=== PATIENT | female | born 1940 | race Hispanic/Latino ===

== ENCOUNTER 2019-10-15 21:42 | Emergency (ER) | payer OTHER ==
--- OUTSIDE RECORDS SUMMARY | 2019-10-15 21:44 | XMS REPORT | Clinical Summary ---
:1940 Author Organization [facility] Address [address] [place] [address] Care Team Providers Name Role Phone Krista Culver MD Primary Care Provider Allergies Active Allergy Reactions Severity Noted Date Comments Adhesive Tape Rash Low 10/12/2014 Medications Medication Sig Dispensed Refills Start Date End Date Status FAMOTIDINE ORAL Take 40 mg by mouth 0 Active once . propranolol (INDERAL) Take 40 mg by mouth 0 Active 40 MG tablet 2 (two) times daily. BIFIDOBACTERIUM Take 4 mg by mouth 0 Active INFANTIS (ALIGN ORAL) daily. omega-3 acid ethyl Take 1 g by mouth 2 0 Active esters (LOVAZA) 1 (two) times daily. gram capsule traMADol (ULTRAM) 50 Take 50 mg by mouth 0 Active mg tablet every 6 (six) hours as needed. vitamin E 400 UNIT Take 400 Units by 0 Active capsule mouth daily. ferrous sulfate 325 Take 325 mg by mouth 0 Active (65 FE) MG tablet daily with breakfast. levothyroxine Take 1 tablet (50 30 tablet 0 05/13/2013 Active (SYNTHROID, mcg total) by mouth LEVOTHROID) 50 MCG daily. tablet spironolactone Take 50 mg by mouth 0 Active (ALDACTONE) 50 MG daily. tablet ezetimibe (ZETIA) 10 Take 10 mg by mouth 0 Active mg tablet daily. furosemide (LASIX) 20 Take 20 mg by mouth 0 Active MG tablet daily. insulin aspart Inject 60 Units 0 Active (NOVOLOG) 100 unit/mL subcutaneously 2 InPn (two) times daily before meals . pregabalin (LYRICA) Take 100 mg by mouth 0 Active 75 MG capsule 2 (two) times daily . lactulose (CHRONULAC) Take 20 g by mouth 2 0 016 Active 20 gram/30 mL (two) times daily solution Take 20mg by mouth 2 to 3 times daily as needed . cholecalciferol Take 1,000 Units by 0 Active (VITAMIN D3) 1,000 mouth daily. unit tablet Active Problems Problem Noted Date Awaiting liver transplant 07/31/2016 Angina at rest 06/19/2016 Pre-transplant evaluation for liver transplant 017 Last Assessment & Plan: Risks/benefits/alternatives of liver tra nsplantation discussed in-depth. All questions answered. From a surgical per spective, I am concerned about her functional status. She reports being seen by a y sical therapist, but as of now can not get around well. 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 That, combined with her age, prior surgeries, and obesity ma ke her a marginal candidate at best from my perspective. Continue multidisciplinary evaluation with the ultimate decision for listing in [facility]. Hepatocellular carcinoma 03/29/2016 Last Assessment & Plan: Continued locoregional therapy as indica dave. Anemia 01/12/2016 Hypothyroid 01/12/2016 Esophageal varices 01/12/2016 Hepatic encephalopathy 01/12/2016 Last Assessment & Plan: Continue lactulose as prescribed. 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 Rectal bleeding 09/23/2012 Family History Medical History Relation Name Comments Heart disease Brother Heart disease Father Heart failure Mother Relation Name Status Comments Brother Father Mother Social History Tobacco Use Types Packs/Day Years Used Date Never Smoker Smokeless Tobacco: Never Used Alcohol Use Drinks/Week oz/Week Comments No Sex Assigned at Date Recorded Not on file Job Start Date Occupation Industry Not on file Not on file Not on file Travel History Travel Start Travel End No recent travel history available. Last Filed Vital Signs Not on file Plan of Treatment Health Maintenance Due Date Last Done Comments DIABETIC EYE EXAM 1950 DIABETIC FOOT EXAM 1950 PNEUMOCOCCAL 65+ HIGH/HIGHEST RISK (1 of 2 - PCV13) 12/31/2007 MEDICARE ANNUAL WELLNESS (YEAR 2 or FIRST YEAR if no 04/23/2014 IPPE) HEMOGLOBIN A1C 11/27/2016 05/30/2016 INFLUENZA VACCINE (Season Ended) 2019 Implants Implanted Type Area Retouching Operator Device Shelf Model / Identifier Expiration Serial / Date Lot Device Clsr Angio-Seal Vip 6fr [id number] Cardiovascular N/A: [employer]ELY[employer] 01/19/2017 [id number] / Implanted: Qty: 1 on 06/19/2016 by Nerissa Paredes MD [facility] / [id number] [id number] Results Not on fileafter 10/14/2018 Insurance Payer Benefit Plan / Subscriber ID Type Phone Address Group [employer] - MEDICARE [employer] MEDICARE HMO xxxxxxxx [address] [place] [address] Advance Directives For more information, please contact:[address] [phone] Code Status Date Activated Date Inactivated Comments Full Code 08/14/2016 1:30 PM 08/14/2016 7:56 PM This code status was determined by: Patient Full Code 06/19/2016 6:28 AM 06/19/2016 2:36 PM This code status was determined by: Patient Full Code 04/09/2016 5:18 PM 04/10/2016 3:21 PM This code status was determined by: Patient Full Code 12/12/2015 5:27 AM 12/17/2015 7:21 PM This code status was determined by: Patient Code ONE 05/11/2013 2:12 PM 05/13/2013 12:47 PM All possib le means of support, including: cardi ac massage, mechanical ventilation, and defibrillation will be used to suppo rt life.
--- OUTSIDE RECORDS SUMMARY | 2019-10-15 21:52 | XMS REPORT | Continuity of Care Document ---
:1940 Author Organization [employer] Information [employer] Care Team Providers Name Role Phone [employer] Unavailable Un available Problems Problem Status Onset Classification Date Comments Sourc e Date Reported S72.032D - "DISPL Active [facility] MIDCERVICAL FX L 017 [place] FEMUR LEFT FEMORAL NECK Active [facility] FX 017 [facility] RECTAL BLEEDING Active [place] 013 GI BLEEDING Active [facility] 013 GI BLEED Active [facility] st 013 Hematochezia Active Problem 02/01/2017 Data [place] (finding) 013 migrated Medical from [facility], Centricity OPID on 09/18/14. [facility] Internal Active Problem 02/01/2017 Data [facility] hemorrhoids 013 migrated Medical without from [facility], complication Centricity OPID (disorder) on 09/18/14. [place] [facility] Residual Active Problem 02/01/2017 Data [facility] hemorrhoidal skin 013 migrated Me dical tags (disorder) from [facility] er, Centricity OPID on 09/18/14. [facility] Cirrhosis of Active Problem 02/01/2017 Data [place] liver (disorder) 013 migrated Med ical from [facility], Centricity OPID on 09/18/14. [facility] Esophageal Active Problem 02/01/2017 Data [facility] varices 013 migrated Medical (disorder) from [facility], Centricity OPID on 09/18/14. [facility] Portal Active Problem 02/01/2017 Data [facility] hypertension 013 migrated Medical (disorder) from [facility], Centricity OPID on 09/18/14. [facility] Anemia (disorder) Resolved Problem 02/01/2017 M Beronica [facility], OPID [place],[place] [facility] [place] Cirrhosis - Resolved Problem [place]/01[place] non-al[place] [facility] (disorder) Center, OPID [facility] [facility] [place] DM II [Diabetes Resolved Problem 02/01/2017 [facility] mellitus type Medica l II](Confirmed) Tommy r, OPID [facility] Hemorrhoids Resolved Problem 02/01[place] [facility] [facility], [facility]ID [facility],M Beronica [facility] Essential Resolved Problem 02/01/2017 [facility] hypertension Medical (disorder) Center, OPID [facility] 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[facility] neoplasm of liver Me dical (disorder) Center, OPID [facility] Metatarsal bone Active Problem 02/01/2017 [facility] fracture Medical (disorder) Center, OPID [facility] Diverticulum Resolved Problem 02/17/2013 [place] (morphologic abnormality) DM II [Diabetes Resolved Problem 02/17/2013 [place] mellitus type II] HTN Resolved Problem 02/17/2013 [place] [facility] 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 Diverticulosis Resolved Problem 01/31/2013 [place] GASTROINTEST Active [place] HEMORR NOS FRACTURE OF UNSP Active [facility] PART OF NECK OF [facility] LEFT FE Center Medications Medication Details Route Status Patient Ordering Order Source Instructions Provider Date tramadol 50 mg = 1 Active 01/11/ [place] hydrochloride 50 tab, PO, Q6H, 2016 edical MG Oral Tablet PRN Pain Center Score 6-10, X 5 day, # 20 tab, 0 Refill(s) enoxaparin 30 30 mg = 0.3 Active 01/11/ [place] mg/0.3 mL mL, SUB-Q, 2017 Medical subcutaneous [id number], Center solution Stop date is 01/26/17, 0 Refill(s) Ergocalciferol 50,000 Active 01/11/ [place] 57744 UNT Oral IntlUnit = 1 2016 [facility] stephenie Capsule cap, PO, Q7D, Center 0 Refill(s) Lactulose 667 20 gm = 30 Active 01[place]11/ [place] MG/ML Oral mL, PO, TID, 2017 Medical Solution PRN Other Center -See Comment, 0 Refill(s) Monobasic Notes: (Same No Longer [place] potassium as: Phos-NaK) Active 2017 Medical phosphate 155 MG Each 1.5 gm Ce nter / Sodium pkt has 250mg Phosphate, phosphorous. Monobasic 350 MG Mix w/2.5oz Oral Tablet water and stir. Lactulose 667 Notes: (Same Inactive [facility] [place] MG/ML Oral as:Chronulac) 2017 [facility] potassium Notes: (Same Inactive [facility] phosphate-sodium as: Phos-NaK) 2017 edical phosphate 155 Each 1.5 gm Cente r mg-350 mg oral pkt has 250mg tablet phosphorous. Mix w/2.5oz water and stir. Monobasic Notes: (Same Inactive [facility] potassium as: Phos-NaK) 2017 Medical phosphate 155 MG Each 1.5 gm Ce nter / Sodium pkt has 250mg Phosphate, phosphorous. Monobasic 350 MG Mix w/2.5oz Oral Tablet water and stir. Lovenox Notes: (Same No Longer [facility] as: Lovenox) Active 2017 Medical [place] Magnesium Notes: WASTE: Inactive [facility] Sulfate F/P - Sink; E 2017 Medical [facility] Trash Bin influenza virus Notes: (Same Inactive [facility] vaccine, as: Fluzone 2017 Medical inactivated Quadrivalent, [place] Fluarix Quadrivalent) For 3 years of age and older (0.5 mL IM) Shake well before use cyclobenzaprine Notes: (Same No Longer [facility] As: Flexeril) Active 2017 Medical [place] Ergocalciferol Notes: (Same No Longer [place] [address] UNT Oral as: Vitamin Active 2017 Medic al Capsule D) "Do Not Center Crush" Calcium Notes: No Longer [facility] Carbonate 1250 (calcium Active 2017 Medical MG / carbonate-vit Center Cholecalciferol D 400 UNT Chewable 500mg-400unit Tablet TAB) Same as: Oyster-D, OsCal-D Baclofen Notes: 5 mg No Longer [facility] =1/2 of 10 mg Active 2017 Medical Tab (Same As: [place] Lioresal) Cefazolin Notes: (Same No Longer [place] As: Ancef, Active 2017 Medical Kefzol) Center Cefazolin FOR IV SET ONLY MEDICATION WASTE Product Size: 1000 mg Product Wasted: ___ mg ondansetron Route: IV, Inactive [place] (ANES) Drug form: 2016 Medical INJ, ONCE, Center Stop date: 01/05/17 10:33:00 CDT glycopyrrolate Route: IV, Inactive [place] (ANES) Drug form: 2017 Medical INJ, ONCE, Center Stop date: 01/05/17 10:33:00 CDT neostigmine Route: IV, Inactive [facility] (ANES) Drug form: 2017 Medical INJ, ONCE, Center Stop date: 01/05/17 10:33:00 CDT calcium chloride Route: IV, Inactive [facility] (ANES) Drug form: 2016 Medical INJ, ONCE, Center Stop date: 01/05/17 10:33:00 CDT dexamethasone Route: IV, Inactive [place] (ANES) Drug form: 2017 Medical INJ, ONCE, Center Stop date: 01/05/17 10:02:00 CDT esmolol (ANES) Route: IV, Inactive [place] Drug form: 2017 Medical INJ, ONCE, Center Stop date: 01/05/17 9:07:00 CDT famotidine Route: IV, Inactive [facility] (ANES) Drug form: 2017 Medical INJ, ONCE, Center Stop date: 01/05/17 9:07:00 CDT ferrous sulfate Notes: Give No Longer [place] 325 MG Oral with food. Active 2017 Medical Tablet [Feosol] "Do Not Center Crush" Furosemide 20 MG Notes: (Same No Longer [facility] Oral Tablet as: Lasix) Active 2017 Medical [Lasix] May cause GI Center upset. Give with food or milk. Zetia Notes: (Same No Longer [facility] as: Zetia) Active 2017 Medical Center Cholecalciferol Notes: Same No Longer [facility] as : Vitamin Active 2017 Medical D3 Center Streptococcus Notes: Shake Inactive [place] pneumoniae well prior to 2017 Medical serotype 1 use (Same Center capsular antigen as: Prevnar diphtheria 13) [id number] protein conjugate vaccine / Streptococcus pneumoniae serotype 14 capsular antigen diphtheria [id number] protein conjugate vaccine / Streptococcus pneumoniae serotype 18C capsular antigen d Spironolactone Notes: (Same No Longer [place] As: Active 2017 Medical Aldactone) Center senna 8.6 mg Notes: (Same No Longer [place] oral tablet as: Senokot) Active 2017 [facility] Protonix Notes: Tablet No Longer [place] should not be Active 2017 [facility] chewed or Center crushed. (Same as: Protonix) phenylephrine Route: IV, Inactive [place] (ANES) Drug form: 2016 Medical INJ, ONCE, Center Stop date: 01/05/17 8:52:00 CDT lidocaine (ANES) Route: IV, Inactive [facility] Drug form: 2016 Medical INJ, ONCE, Center Stop date: 01/05/17 8:47:00 CDT propofol (ANES) Route: IV, Inactive [place] Drug form: 2016 Medical INJ, ONCE, Center Stop date: 01/05/17 8:47:00 CDT rocuronium Route: IV, Inactive [place] (ANES) Drug form: 2017 Medical INJ, ONCE, Center Stop date: 01/05/17 8:47:00 CDT ondansetron Route: IV, Inactive [facility] (ANES) Drug form: 2016 Medical INJ, ONCE, Center Stop date: 01/05/17 8:47:00 CDT ceFAZolin (ANES) Route: IV, Inactive [facility] Drug form: 2017 Medical INJ, ONCE, Center Stop date: 01/05/17 8:47:00 CDT fentaNYL (ANES) Route: IV, Inactive [place] Drug form: 2017 Medical INJ, ONCE, Center Stop date: 01/05/17 8:47:00 CDT Insulin regular 2 unit, In[place] Route: SUB-Q, 2017 Medical Sliding Center Scale, Dosing Weight 81.818, kg, PRN Blood Glucose Results, Start date: 01/05/17 8:40:00 CDT, Duration: 30 day, Stop date: 02/04/17 8:39:00 CDT Ondansetron 4 mg, Route: Inactive [place] IVP, ONCE, 2016 Medical Dosing Weight Center 81.818, kg, PRN Nausea & Vomiting, Start date: 01/05/17 8:40:00 CDT Hydromorphone 0.5 mg, Inactive [place] Route: IVP, 2016 Medical Q5Min, Dosing Center Weight 81.818, kg, PRN Pain Score 7-10, Start date: 01/05/17 8:40:00 CDT, Duration: 4 doses or times, Stop date: Limited # of times Naloxone 0.4 mg, Inactive [place] Route: IVP, 2016 Medical Q2MIN, Dosing Center Weight 81.818, kg, PRN Narcotic Reversal, Start date: 01/05/17 8:40:00 CDT, Duration: 8 doses or times, Stop date: Limited # of times Sodium Chloride 1,000 mL, Inactive [place] 0.9% IV 1,000 mL Rate: 50 2017 Medica l ml/hr, Infuse Center over: 20 hr, Route: IV, Dosing Weight 81.818 kg, Total Volume: 1,000, Start date: 01/05/17 8:40:00 CDT, Duration: 30 day, Stop date: 02/04/17 8:39:00 CDT Labetalol 10 mg, Route: Inactive [place] IVP, Q5Min, 2016 Medical Dosing Weight Center 81.818, kg, PRN Elevated BP, Start date: 01/05/17 8:40:00 CDT, Duration: 5 doses or times, Stop date: Limited # of times Hydralazine 10 mg, Route: Inactive [place] IVP, Q20Min, 2016 Medical Dosing Weight Center 81.818, kg, PRN Elevated BP, Start date: 01/05/17 8:40:00 CDT, Duration: 2 doses or times, Stop date: Limited # of times sodium chloride Route: IV, Inactive [place] 0.9% 1000 ml INJ Total Volume: 2016 edical (ANES) 1,000, Start Center date: 01/05/17 7:45:00 CDT, Stop date: 01/05/17 8:45:00 CDT Thyroxine Notes: Take 1 No Longer [place] hour before Active 2017 Medical or 2 hours Center after meal; Enteral feeds may interefere with the absorption of this medication.(S rosey as:Levothroid , Synthroid) Lovenox Notes: (Same No Longer [place] as: Lovenox) Active 2017 Medical Center Humalog Mix Notes: (Same No Longer [place] 75/25 as: Humalog Active 2016 Medical Mix) WASTE: Center F/P - Black; E - Municipal Trash Bin Docusate Notes: (Same No Longer [place] as: Colace) Active 2017 Medical (Do Not Center Crush) Propranolol Notes: Give No Longer [place] with food. Active 2017 Medical (Same as: Center Inderal) Miralax Notes: No Longer [place] Dissolve in 8 Active 2016 Medical oz of water Center or juice. (Same as: Miralax) Jbphh-3 Acid Notes: (Same No Longer [place] Ethyl Esters as: MaxEPA, Active 2016 Medical (LONGTERM) 1000 MG Jbphh 3 fish Cente r Oral Capsule oil ) [Lovaza] Non-Formulary Drug NovoLOG 70/30 55 unit, Inactive [place] Route: SUB-Q, 2017 Medical BID-Before Center Meals, Dosing Weight 81.818, kg, Start date: 01/04/17 16:30:00 CDT, Duration: 30 day, Stop date: 02/03/17 7:30:00 CDT Humalog Mix Notes: (Same Inactive [place] 75/25 as: Humalog 2017 Medical 75/25) Center WASTE: F/P - Black; E - [place] Trash Bin Lyrica Notes: (Same No Longer [place] as: Lyrica) Active 2017 Medical Center Insulin Lispro 60 units) No Longer [place] WASTE: F/P - Active 2016 Medical Black; E - Center Municipal Trash Bin Stable for 28 days at room temperature. Expires in days from _Date Dextrose 50% 25 gm, 50 mL, No Longer [place] Syringe Route: IVP, Active 2016 Medical Drug Form: Center INJ, Dosing Weight 81.818, kg, PRN, PRN Blood Glucose Results, Start date: 01/04/17 11:51:00 CDT, Duration: 30 day, Stop date: 02/03/17 11:50:00 CDT Glucagon 1 mg, Route: No Longer [place] IM, Drug Active 2016 Medical form: Center PDR/INJ, PRN, Dosing Weight 81.818, kg, PRN Blood Glucose Results, Start date: 01/04/17 11:51:00 CDT, Duration: 30 day, Stop date: 02/03/17 11:50:00 CDT Oxycodone Notes: (Same No Longer [place] Hydrochloride 5 as: Active 2016 Medical MG Oral Tablet Roxicodone) Cente r Lactulose 667 Notes: (Same No Longer [place] MG/ML Oral as:Chronulac) Active 2016 Medical Solution [place] Furosemide 20 MG 20 mg = 1 Active [place] Oral Tablet tab, PO, 2017 Medical [Lasix] Daily, # 30 Center tab, 0 Refill(s) Linagliptin 5 MG 5 mg = 1 tab, Active 01/04/ H [place] Oral Tablet PO, Daily, # 2016 Medical [Tradjenta] 30 tab, 3 Center Refill(s) lactulose 20 g = 1 Pack, PO, No Longer 01/04/ H [place] oral powder BID, # 20 gm, Active 2016 Medica l 0 Refill(s) Center Lovaza 1,000 mg =, No Longer [place] PO, BID, 0 Active 2016 Medical Refill(s) [place] NovoLOG 70/30 55 unit, Active [place] SUB-Q, 2017 Medical BID-Before Center Meals, 0 Refill(s) spironolactone 25 mg = 1 Active [place] 25 mg oral tab, PO, 2017 Medical tablet Daily, # 30 Center tab, 3 Refill(s) Cholecalciferol 1,000 No Longer [place] IntlUnit, PO, Active 2016 Medical Daily, 0 Center Refill(s) pantoprazole 40 40 mg = 1 Active [place] MG Enteric tab, PO, 2017 Medical Coated Tablet Daily, # 30 Center [Protonix] tab, 0 Refill(s) Saline Flush Notes: Same No Longer [place] 0.9% as: BD Active 2016 Medical Posiflush Center Sterile sodium chloride 1,000 mL, No Longer [place] 0.9% 1000 ml INJ Rate: 75 Active 2017 Medica l 1,000 mL ml/hr, Infuse Center over: 13.3 hr, Route: IV, Dosing Weight 81.818 kg, Total Volume: 1,000, Start date: 01/04/17 11:39:00 CDT, Duration: 30 day, Stop date: 02/03/17 11:38:00 CDT Morphine Notes: (Same No Longer [place] as:MORPhine Active 2016 Medical Sulfate) Center Ondansetron Notes: (Same No Longer [place] as: Zofran) Active 2016 Medical Center MEDICATION WASTE Product Size: 4 mg Product Wasted: ___ mg Ondansetron Notes: (Same Inactive [place] as: Zofran) 2017 Medical Center MEDICATION WASTE Product Size: 4 mg Product Wasted: ___ mg Morphine Notes: (Same Inactive [place] as:MORPhine 2016 Medical Sulfate) [place] Lasix 20 mg oral 20 mg, 1 tab, Active [place] tablet PO, Daily, 30 2012 tab, Substitution Allowed, TAB pantoprazole 40 40 mg, 1 tab, Active [place] mg oral enteric PO, Q12H, 60 2012 [place] [facility] coated tablet tab, Substitution Allowed, ECTAB benzonatate 100 100 mg, 1 Active [place] mg oral capsule cap, PO, TID, 2012 [place] PRN, 30 cap, Cough, Substitution Allowed, CAP Lasix 40 mg oral 40 mg, 1 tab, Inactive [place] tablet Route: PO, 2012 [facility] Drug form: TAB, Daily, Dosing Weight 84.3, kg, Start date: 02/10/13 9:00:00, Duration: 30 day, Stop date: 03/11/13 9:00:00(Same as: Lasix) May cause GI upset. Give with food or milk. Tessalon Perles 100 mg, 1 No Longer [place] 02/10/ MH cap, Route: Active 2012 [facility] PO, Drug form: CAP, TID, Dosing Weight 84.3, kg, PRN Cough, Start date: 02/09/13 23:03:00, Duration: 30 day, Stop date: 03/11/13 23:02:00(Same As: Tessalon Perles) "Do Not Crush" spironolactone 50 mg, 2 tab, No Longer [place] MH Route: PO, Active 2012 [facility] Drug form: TAB, BID, Dosing Weight 84.3, kg, Start date: 02/09/13 17:00:00, Duration: 30 day, Stop date: 03/11/13 9:00:00(Same As: Aldactone) Protonix 40 mg, 1 tab, No Longer [place] MH Route: PO, Active 2012 [facility] Drug form: ECTAB, Q12H, Dosing Weight 84.3, kg, Start date: 02/08/13 21:00:00, Stop date: 03/10/13 9:00:00Tablet should not be chewed or crushed. (Same as: Protonix) Anusol-HC 2.5% 1 appl, No Longer Voloyiannis 02/08/ MH rectal cream Route: VA, Active 2012 [place] with applicator BID, Drug form: CRM, Start date: 02/08/13 17:00:00, Duration: 30 day, Stop date: 03/10/13 9:00:00 HC Pramoxine 1 appl, TOP, Active Voloyiannis 02/08/ MH 2.5%-1% topical TID, 28 gm, 2012 [place] cream Substitution Allowed, Maintenance, CRM nitroglycerin 0.4 mg, 1 No Longer [place] 02/08/ MH 0.4 mg tab, Route: Active 2012 [facility] sublingual SL, Drug tablet form: TAB, Q5Min, PRN Chest Pain, Start date: 02/08/13 9:05:00, Duration: 30 day, Stop date: 03/10/13 8:04:00(Same as:Nitroquick , Nitrostat) "Do Not Crush" Sublingual tablet atropine 0.5 mg, 5 mL, No Longer [place] Route: IVP, Active 2012 [facility] Drug form: INJ, PRN, PRN Bradycardia, Start date: 02/08/13 9:05:00, Duration: 30 day, Stop date: 03/10/13 8:04:00 Sodium Chloride 1,000 mL, No Longer Maxian 0.9% IV 1,000 mL Rate: 25 Active 2012 [facility] ast ml/hr, Infuse over: 40 hr, Route: IV, Dosing Weight 84.3 kg, Total Volume: 1,000, Start date: 02/06/13 14:38:00, Duration: 1 day, Stop date: 02/07/13 14:37:00 Lidocaine 15 ml, Route: No Longer [place] Viscous 2% PO, Q3H, Drug Active 2012 [facility] mucous membrane form: SOLN, solution PRN Other -See Comment, Start date: 02/06/13 11:31:00, Duration: 30 day, Stop date: 03/08/13 11:30:00, post banding chest pain(Same as: Xylocaine Viscous) levothyroxine 50 microgram, No Longer [place] 1 tab, Route: Active 2012 [facility] PO, Drug form: TAB, Q6AM, Dosing Weight 84.3, kg, Start date: 02/06/13 6:00:00, Duration: 30 day, Stop date: 03/07/13 6:00:00Take 1 hour before or 2 hours after meal; Enteral feeds may interefere with the absorption of this medication.(S rosey as:Levothroid , Synthroid) Sodium Chloride 250 mL, Rate: Inactive [place] 0.9% IV 250 mL 30 ml/hr, 2012 [facility] Infuse over: 8.3 hr, Route: IV, Dosing Weight 84.3 kg, Total Volume: 250, Start date: 02/05/13 10:43:00, Duration: 12 hr, Stop date: 02/05/13 22:42:00 Evista 60 mg, PO, Active Daily, 2012 Substitution Allowed Evista 60 mg, 1 tab, No Longer [place] Route: PO, 2012 [facility] Drug form: TAB, Daily, Dosing Weight 84.3, kg, Start date: 02/05/13 9:00:00, Duration: 30 day, Stop date: 03/06/13 9:00:00(Same as:Evista) "Do Not Crush" propranolol 40 mg, 1 tab, No Longer [place] Route: PO, 2012 Drug form: TAB, BID, Dosing Weight 84.3, kg, Start date: 02/05/13 9:00:00, Duration: 30 day, Stop date: 03/06/13 21:00:00Give with food. (Same as: Inderal) Lyrica 75 mg, 1 cap, No Longer [place] Route: PO, 2012 [facility] Drug form: CAP, Q8H, Dosing Weight 84.3, kg, Start date: 02/05/13 9:00:00, Duration: 30 day, Stop date: 03/07/13 8:00:00(Same as: Lyrica) Zetia 10 mg, 1 tab, No Longer [place] Route: PO, 2012 [facility] Drug form: TAB, Daily, Dosing Weight 84.3, kg, Start date: 02/05/13 9:00:00, Duration: 30 day, Stop date: 03/06/13 9:00:00(Same as: Zetia) Saline Flush 5 ml, Route: No Longer [place] 0.9% IVP, Drug Active 2012 [facility] Form: INJ, Dosing Weight 79.545, kg, PRN, PRN Line Flush, Start date: 02/05/13 0:57:00, Duration: 30 day, Stop date: 03/06/13 23:56:00(Same as: BD Posiflush) Sodium Chloride 1,000 mL, No Longer [place] 0.9% IV 1,000 mL Rate: 125 2012 [facility] ml/hr, Infuse over: 8 hr, Route: IV, Dosing Weight 79.545 kg, Total Volume: 1,000, Start date: 02/05/13 0:57:00, Duration: 30 day, Stop date: 03/07/13 0:56:00 octreotide 50 microgram, Inactive [place] Route: IVP, 2012 [facility] ONCE, Dosing Weight 79.545, kg, Start date: 02/05/13 0:57:00, Duration: 1 doses or times, Stop date: 02/05/13 0:57:00 pantoprazole 80 mg, Route: Inactive [place] IVP, ONCE, 2012 [facility] Dosing Weight 79.545, kg, for loading dose, Start date: 02/05/13 0:57:00, Duration: 1 doses or times, Stop date: 02/05/13 0:57:00 pantoprazole 80 100 mL, Rate: No Longer [place] mg + Sodium 10 ml/hr, Active 2012 [facility] Chloride 0.9% IV Infuse over: 100 mL 10 hr, Route: IV, Dosing Weight 79.545 kg, Total Volume: 100, Start date: 02/05/13 0:57:00, Duration: 30 day, Stop date: 03/07/13 0:56:00 octreotide 1,250 248.75 mL, No Longer [place] microgram + Rate: 10 Active 2012 [facility] Sodium Chloride ml/hr, Infuse 0.9% IV 248.75 over: 25 hr, mL Route: IV, Dosing Weight 79.545 kg, Total Volume: 250, Start date: 02/05/13 0:57:00, Duration: 30 day, Stop date: 03/07/13 0:56:00, Infuse at 50 mcg/hr. Final concentration = 50 mcg/10 mLInfuse at 50 mcg/hr. Final concentration = 50 mcg/10 mL insulin aspart 10 unit, 0.1 No Longer [place] mL, Route: Active 2012 [facility] SUB-Q, Drug form: SOLN, Sliding Scale, Dosing Weight 79.545, kg, PRN Blood Glucose Results, Start date: 02/05/13 0:57:00, Duration: 30 day, Stop date: 03/06/13 23:56:00Roll in palms of hands gently; Do not shake vigorously. (Same as: NovoLog) "single patient use only" Stable for 28 days at room temperature. Expires in days from _Date Dextrose 50% 12.5 gm, 25 No Longer [place] Syringe mL, Route: Active 2012 [facility] IVP, Drug Form: INJ, Dosing Weight 79.545, kg, PRN, PRN Blood Glucose Results, Start date: 02/05/13 0:57:00, Duration: 30 day, Stop date: 03/06/13 23:56:00 glucagon 1 mg, Route: No Longer [place] IM, Drug Active 2012 [facility] form: PDR/INJ, PRN, Dosing Weight 79.545, kg, PRN Blood Glucose Results, Start date: 02/05/13 0:57:00, Duration: 30 day, Stop date: 03/06/13 23:56:00 Protonix 80 mg, Route: Inactive Lilianen IVP, Drug 2012 [facility] form: INJ, ONCE, Start date: 02/04/13 23:43:00, Stop date: 02/04/13 23:43:00For IV push reconstitute with 10 ml 0.9% sodium chloride and push over 2 minutes. (Same as: Protonix) pantoprazole 80 100 mL, Rate: No Longer [place] mg + Sodium 10 ml/hr, Active 2012 [facility] Chloride 0.9% IV Infuse over: 100 mL 10 hr, Route: IVPB, Dosing Weight 79.545 kg, Total Volume: 100, Infuse at 8 mg / hr for 72 hours for GI bleeding, Start date: 02/04/13 23:35:00, Duration: 72 hr, Stop date: 02/07/13 23:34:00 Sodium Chloride 20 mL, Rate: Inactive [place] 0.9% (Bolus) IV 240 ml/hr, 2012 [facility] 20 mL + Infuse over: pantoprazole 80 5 minutes, mg Route: IVP, Dosing Weight 79.545 kg, Total Volume: 20, Start date: 02/04/13 23:35:00, Duration: 1 doses or times, Stop date: 02/04/13 23:39:00 octreotide 1,250 248.75 mL, No Longer Humberto microgram + Rate: 10 Active 2012 [facility] Sodium Chloride ml/hr, Infuse 0.9% IV 248.75 over: 25 hr, mL Route: IV, Dosing Weight 79.545 kg, Total Volume: 250, Start date: 02/04/13 23:34:00, Duration: 30 day, Stop date: 03/06/13 23:33:00 Octreotide 50 microgram, Inactive [place]umberto (bolus) 0.5 mL, 2012 [facility] Route: IVP, Drug form: INJ, ONCE, Dosing Weight 79.545, kg, Start date: 02/04/13 23:34:00, Duration: 1 doses or times, Stop date: 02/04/13 23:34:00(Same As: Sandostatin). Refrigerate. Centrum Silver 1 tab, PO, Active oral tablet Daily, 2012 tab, Substitution Allowed, Maintenance, TAB Align 4 mg, Daily, Active Substitution 2012 Allowed pantoprazole 40 mg, Route: Inactive [place]umberto IVP, ONCE, 2012 [facility] Dosing Weight 79.545, kg, For IV push reconstitute with 10 ml 0.9% sodium chloride and push over at least 3 minutes, Priority: STAT, Start date: 02/04/13 19:51:00, Stop date: 02/04/13 19:51:00 Saline Flush 5 mL, Route: No Longer [place] 0.9% IVP, Drug Active 2012 [facility] Form: INJ, Dosing Weight 79.545, kg, PRN, PRN Line Flush, Start date: 02/04/13 19:51:00, Duration: 24 hr, Stop date: 02/05/13 19:50:00(Same as: BD Posiflush) sitagliptin 50 mg, 2 tab, Inactive Rahim Route: PO, 2012 [facility] Drug form: TAB, BID, Dosing Weight 84.091, kg, Start date: 01/27/13 9:00:00, Duration: 30 day, Stop date: 02/25/13 17:00:00Same as Chinia metFORmin 1000 1,000 mg, 2 Inactive Rahim mg oral tablet tab, Route: 2012 [facility] PO, Drug form: TAB, BID, Dosing Weight 84.091, kg, Start date: 01/27/13 9:00:00, Duration: 30 day, Stop date: 02/25/13 17:00:00(Same as: Glucophage) Take with meal hydrocortisone-p 1 appl, No Longer Voloyiannis H ramoxine topical Route: PO, Active 2012 [facility] 2.5%-1% cream BID, Drug form: CRM/A, Start date: 01/26/13 18:00:00, Duration: 30 day, Stop date: 02/25/13 17:00:00(Same as: Analpram-HC 2.5) Non-formulary drug. (hydrocortiso ne-pramoxine 2.5%-1% 30 gm rectal CRM) Analpram Route: TOP, Inactive Tran Advanced with Dosing Weight 2012 [facility] cleansing wipes 84.091, kg, oral and topical BID, Start kit date: 01/26/13 17:00:00 Sodium Chloride 1,000 mL, No Longer Curt 0.9% IV 1,000 mL Rate: 25 Active 2012 [facility] ast ml/hr, Infuse over: 40 hr, Route: IV, Dosing Weight 84.091 kg, Total Volume: 1,000, Start date: 01/26/13 9:40:00, Duration: 1 day, Stop date: 01/27/13 9:39:00 GoLYTELY 4,000 ml, Inactive Jasmeet Route: PO, 2012 [facility] Drug Form: PDR/REC, Dosing Weight 84.091, kg, ONCE, Start date: 01/25/13 15:00:00, Duration: 1 doses or times, Stop date: 01/25/13 15:00:00(poly ethylene glycol electrolyte solution 4 Liter bottle) (Same as: Golytely, Colyte) NS IV, 30 ml/hr, No Longer Jasmeet PRN, PRN Active 2012 [facility] Blood Transfusion, Start date: 01/25/13 11:50:00, Duration: 1, 250 ml Vitamin K1 10 mg, 1 mL, Inactive Jasmeet Route: SUB-Q, 2012 [facility] Drug form: INJ, ONCE, Dosing Weight 84.091, kg, Start date: 01/25/13 10:31:00, Duration: 1 doses or times, Stop date: 01/25/13 10:31:00(Same as: Aqua-Mephyton , Vitamin K) Zetia 10 mg, 1 tab, No Longer Onochie Route: PO, Active 2012 [facility] Drug form: TAB, Daily, Dosing Weight 79.545, kg, Start date: 01/24/13 9:00:00, Duration: 30 day, Stop date: 02/22/13 9:00:00(Same as: Zetia) Evista 60 mg, 1 tab, No Longer Onochie Route: PO, Active 2012 [facility] Drug form: TAB, Daily, Dosing Weight 79.545, kg, Start date: 01/24/13 9:00:00, Duration: 30 day, Stop date: 02/22/13 9:00:00(Same as:Evista) "Do Not Crush" propranolol 40 mg, 1 tab, No Longer Onochie Route: PO, Active 2012 [facility] Drug form: TAB, BID, Dosing Weight 79.545, kg, Start date: 01/24/13 9:00:00, Duration: 30 day, Stop date: 02/22/13 17:00:00Give with food. (Same as: Inderal) influenza virus 0.5 mL, Inactive SYSTEM vaccine, Route: IM, 2012 [facility] inactivated Drug Form: SUSP, Start date: 01/24/13 9:00:00, Stop date: 01/24/13 9:00:00 Protonix 40 mg, Route: No Longer Rahim IV, Drug Active 2012 [facility] form: INJ, Q12H, Dosing Weight 79.545, kg, Start date: 01/24/13 9:00:00, Duration: 30 day, Stop date: 02/22/13 21:00:00For IV push reconstitute with 10 ml 0.9% sodium chloride and push over 2 minutes. (Same as: Protonix) magnesium 2 gm, 50 mL, Inactive Onochie MH sulfate 2 gm in Route: IV, 2012 [facility] Water 50 ml Drug form: INJ, ONCE, Dosing Weight 84.091, kg, Priority: Routine, Start date: 01/24/13 6:37:00, Stop date: 01/24/13 6:37:00 nitroglycerin 0.4 mg, 1 No Longer Rahim 01/24/ MH 0.4 mg tab, Route: Active 2012 [facility] sublingual SL, Drug tablet form: TAB, Q5Min, PRN Chest Pain, Start date: 01/24/13 2:14:00, Duration: 30 day, Stop date: 02/23/13 1:13:00(Same as:Nitroquick , Nitrostat) "Do Not Crush" Sublingual tablet atropine 0.5 mg, 5 mL, No Longer Rahim 01/24/ MH Route: IVP, Active 2012 Drug form: INJ, PRN, PRN Bradycardia, Start date: 01/24/13 2:14:00, Duration: 30 day, Stop date: 02/23/13 1:13:00 acetaminophen 650 mg, 20.3 No Longer Rahim 01/24/ MH mL, Route: Active 2012 PO, Drug form: LIQ, Q4H, Dosing Weight 84.091, kg, PRN Pain 1-3/Temp > 100.4 F, Start date: 01/24/13 1:09:00, Duration: 30 day, Stop date: 02/23/13 1:08:00Max acetaminophen = 4000mg/day (4 gm/day). (Same as: Tylenol) ondansetron 4 mg, 2 mL, No Longer Rahim 01/24/ MH Route: IVP, Active 2012 Drug form: INJ, Q8H, Dosing Weight 84.091, kg, PRN Nausea & Vomiting, Start date: 01/24/13 1:09:00, Duration: 30 day, Stop date: 02/23/13 1:08:00(Same as: Zofran) Zetia 10 mg oral 10 mg, 1 tab, Active Onochie 10/ M H tablet PO, Daily, 2012 tab, Substitution Allowed, TAB Voltaren Topical 1 appl, TOP, Active MH 1% topical gel QID, 100 gm, 2012 [facility] Substitution Allowed, GEL propranolol 40 40 mg, 1 tab, Active Onochie 01/24/ MH mg oral tablet PO, BID, 180 2012 [facility] tab, Substitution Allowed, TAB Metamucil Substitution Active 01/24/ MH Allowed, 2012 Maintenance Lyrica 75 mg 75 mg, 1 cap, Active MH oral capsule PO, TID, [address] [facility] [address] cap, Substitution Allowed, CAP Lovaza oral 2,000 mg, 2 Active MH capsule cap, PO, BID, 2012 120 cap, Substitution Allowed, Maintenance, CAP Lidoderm 5% Substitution Active topical film Allowed 2012 (patch) levothyroxine 50 50 microgram, Active 01/24/ H mcg (0.05 mg) 1 tab, PO, [address] [facility] [address] oral tablet Daily, 30 tab, Substitution Allowed, TAB Janumet 50 1 tab, PO, Active MH mg/1000 mg oral BID, 60 tab, 2012 [facility] tablet Substitution Allowed, Maintenance, TAB Feosol 325 mg 325 mg, PO, Active MH oral tablet Daily, 30 2012 tab, Substitution Allowed famotidine 40 mg, PO, Active MH BID, 60 tab, 2012 Substitution Allowed Evista 60 mg 120 mg, 2 Active Onochie 01/24/ MH oral tablet tab, PO, 2012 Daily, 30 tab, Substitution Allowed, TAB Dexilant 60 mg 60 mg, 1 cap, Active MH oral delayed PO, 2012 [facility] release capsule Substitution Allowed, CAP Sodium Chloride 250 mL, Rate: No Longer Grijalva 10/05/ MH 0.9% (titrate) Benefits Officer for Active 2012 [facility] 250 mL use with blood product administratio n., Dosing Weight 79.545, kg, Route: IV, Total Volume: 250, Priority: Routine, Duration: 30 day, Stop date: 02/22/13 22:44:00, Replace Every: 24 hr Sodium Chloride 250 mL, Rate: No Longer Grijalva 10/05/ MH 0.9% (titrate) train caller for Active 2012 [facility] 250 mL use with blood product administratio n, Dosing Weight 79.545, kg, Route: IV, Total Volume: 250, Duration: 30 day, Stop date: 02/22/13 20:51:00, Replace Every: 24 hr Allergies, Adverse Reactions, Alerts No Known Medication Allergies Immunizations Immunization Date Site Status Last Updated Comments Sour ce Given influenza virus Right completed John DANIEL [facility] [place] vaccine, 7 Deltoid [facility] inactivated Center,[facility] pneumococcal Left completed Juan C Giles s 13-valent 7 [facility] Right completed Seferino DANIEL T [place] vaccine, 3 Deltoid [facility] inactivated Center,M H [facility] influenza virus completed Seferino DANIEL [facility] [place] vaccine, 3 inactivated Results Order Name Results Value Reference Date Interpretation Comments Leslie rce Range CHEM PANEL eGFR 92 01/11 Result Comment: The Medical eGFR is Center calculated using the CKD-EPI formula. In most young, healthy individuals the eGFR will be >90 mL/min/1.73m2 . The eGFR declines with age. An eGFR of 60-89 may be normal in some populations, particularly the elderly, for whom the CKD-EPI formula has not been extensively validated. Use of the eGFR is not recommended in the following populations:< br/>
Julia viduals with unstable creatinine concentration s, including patients and those with serious co-morbid conditions.<b r/>
Patie nts with extremes in muscle mass or diet.

The data above are obtained from the National Kidney Disease Education Program (NKDEP) which additionally recommends that when the eGFR is used in patients with extremes of body mass index for purposes of drug dosing, the eGFR should be multiplied by the estimated BMI. CHEM PANEL Potassium 3.3 3.5 - 5.1 01/11 [facility] CHEM PANEL Chloride Lvl 103 95 - 109 01/11 [facility] CHEM PANEL Sodium Lvl 142 135 - 145 01/11 [facility] CHEM PANEL Calcium Lvl 8.3 8.5 - 10.5 01/11 [facility] CHEM PANEL AGAP 12.3 10.0 - 01/11 . [facility] CHEM PANEL CO2 30 24 - 32 01/11 [facility] CHEM PANEL Glucose Lvl 136 70 - 99 01/11 [facility] CHEM PANEL BUN 7 7 - 22 01/11 [facility] CHEM PANEL Creatinine 0.56 0.50 - 01/11 [facility] Lv 1.40 [facility] HEMATOLOGY PT 16.1 12.0 - 01/11 [place] 14.7 /2016 [facility] HEMATOLOGY INR 1.26 0.85 - 01/11 [place] 1.17 [facility] CHEM PANEL Phosphorus 3.0 2.5 - 4.5 01/11 [facility] CHEM PANEL Magnesium 1.4 1.8 - 2.4 01/11 [facility] HEMATOLOGY Platelet 115 133 - 450 01/11 [facility] HEMATOLOGY MPV 9.2 7.4 - 10.4 01/11 [facility] HEMATOLOGY RDW 14.7 11.5 - 01/11 [place] 14.5 [facility] HEMATOLOGY MCHC 33.9 32.0 - 01/11 [place] 36.0 /2016 [facility] HEMATOLOGY MCH 31.6 27.0 - 01/11 [place] 31.0 [facility] HEMATOLOGY MCV 93.3 80.0 - 01/11 [place] 98.0 [facility] HEMATOLOGY Hgb 10.6 12.0 - 01/11 [place] 16.0 [facility] HEMATOLOGY WBC 6.9 3.7 - 10.4 01/11 [facility] HEMATOLOGY Hct 31.2 36.0 - 01/11 [place] 48.0 [facility] HEMATOLOGY RBC 3.34 4.20 - 01/11 [place] 5.40 [facility] HEMATOLOGY Segs 56.2 45.0 - 01/11 [place] 75.0 /2017 [facility] HEMATOLOGY Lymphocytes 26.0 20.0 - 01/11 [place] 40.0 [facility] HEMATOLOGY Eosinophils 0.2 0.0 - 0.5 01/[place] # /2016 [facility] HEMATOLOGY Lymphocytes 1.8 1.0 - 5.5 01/[place] # /2016 [facility] HEMATOLOGY Monocytes # 1.0 0.0 - 0.8 01/[place]2016 [facility] HEMATOLOGY Basophils 0.7 0.0 - 1.0 01/11 [facility] HEMATOLOGY Monocytes 14.1 2.0 - 12.0 01/11 [facility] HEMATOLOGY Eosinophils 3.0 0.0 - 4.0 01/11 [facility] HEMATOLOGY Segs-Bands # 3.9 1.5 - 8.1 01/11 [facility] CHEM PANEL Phosphorus 2.4 2.5 - 4.5 01/10 [facility] CHEM PANEL Magnesium 1.8 1.8 - 2.4 01/10 [facility] CHEM PANEL eGFR 63 01/10 [facility] Comment: The Medical eGFR is Center calculated using the CKD-EPI formula. In most young, healthy individuals the eGFR will be >90 mL/min/1.73m2 . The eGFR declines with age. An eGFR of 60-89 may be normal in some populations, particularly the elderly, for whom the CKD-EPI formula has not been extensively validated. Use of the eGFR is not recommended in the following populations:< br/>
Julia viduals with unstable creatinine concentration s, including patients and those with serious co-morbid conditions.<b r/>
Patie nts with extremes in muscle mass or diet.

The data above are obtained from the National Kidney Disease Education Program (NKDEP) which additionally recommends that when the eGFR is used in patients with extremes of body mass index for purposes of drug dosing, the eGFR should be multiplied by the estimated BMI. CHEM PANEL CO2 27 24 - 32 01/10 [facility] CHEM PANEL Chloride Lvl 99 95 - 109 01/10 [facility] CHEM PANEL Calcium Lvl 8.7 8.5 - 10.5 01/10 [facility] CHEM PANEL AGAP 13.3 10.0 - 01/10 20.0 [facility] CHEM PANEL Glucose Lvl 152 70 - 99 01/10 [facility] CHEM PANEL Sodium Lvl 136 135 - 145 01/10 [facility] CHEM PANEL Creatinine 0.91 0.50 - 01/[address] [facility] 1.40 [facility] CHEM PANEL Potassium 3.3 3.5 - 5.1 01/10 [facility] CHEM PANEL BUN 8 7 - 22 01/10 [facility] HEMATOLOGY MCH 31.9 27.0 - 01/10 [place] 31.0 [facility] HEMATOLOGY Platelet 129 133 - 450 01/10 [facility] HEMATOLOGY MPV 9.4 7.4 - 10.4 01/10 [facility] HEMATOLOGY MCHC 34.5 32.0 - 01/10 [place] 36.0 /2016 [facility] HEMATOLOGY RDW 14.8 11.5 - 01/10 [place] 14.5 [facility] HEMATOLOGY Hct 35.1 36.0 - 01/10 [place] 48.0 /2016 [facility] HEMATOLOGY WBC 7.6 3.7 - 10.4 01/10 [facility] HEMATOLOGY RBC 3.80 4.20 - 01/10 [place] 5.40 /2016 [facility] HEMATOLOGY Hgb 12.1 12.0 - 01/10 [place] 16.0 [facility] HEMATOLOGY MCV 92.5 80.0 - 01/10 [place] 98.0 /2016 [facility] HEMATOLOGY INR 1.19 0.85 - 01/10 [place] 1.17 [facility] HEMATOLOGY PT 15.4 12.0 - 01/10 [place] 14.7 /2016 [facility] HEMATOLOGY Lymphocytes 27.4 20.0 - 01/10 [place] 40.0 [facility] HEMATOLOGY Monocytes 13.0 2.0 - 12.0 01/10 [facility] HEMATOLOGY Eosinophils 3.3 0.0 - 4.0 01/10 [facility] HEMATOLOGY Segs 55.8 45.0 - 01/10 [place] 75.0 [facility] HEMATOLOGY Basophils 0.5 0.0 - 1.0 01/10 [facility] HEMATOLOGY Lymphocytes 2.1 1.0 - 5.5 01/[place] # /2016 [facility] HEMATOLOGY Monocytes # 1.0 0.0 - 0.8 01/10 [place] [facility] HEMATOLOGY Eosinophils 0.3 0.0 - 0.5 01/10 [place] # /2016 [facility] HEMATOLOGY Segs-Bands # 4.2 1.5 - 8.1 01/10 [facility] CHEM PANEL Phosphorus 2.5 2.5 - 4.5 01/09 [facility] CHEM PANEL Magnesium 1.6 1.8 - 2.4 01/09 [facility] CHEM PANEL eGFR 89 01/09 Result Comment: The Medical eGFR is Center calculated using the CKD-EPI formula. In most young, healthy individuals the eGFR will be >90 mL/min/1.73m2 . The eGFR declines with age. An eGFR of 60-89 may be normal in some populations, particularly the elderly, for whom the CKD-EPI formula has not been extensively validated. Use of the eGFR is not recommended in the following populations:< br/>
Julia viduals with unstable creatinine concentration s, including patients and those with serious co-morbid conditions.<b r/>
Patie nts with extremes in muscle mass or diet.

The data above are obtained from the National Kidney Disease Education Program (NKDEP) which additionally recommends that when the eGFR is used in patients with extremes of body mass index for purposes of drug dosing, the eGFR should be multiplied by the estimated BMI. CHEM PANEL BUN 8 7 - 22 01/09 [facility] CHEM PANEL Sodium Lvl 135 135 - 145 01/09 [facility] CHEM PANEL Creatinine 0.62 0.50 - 01/09 [facility] 1.[facility] CHEM PANEL Chloride Lvl 98 95 - 109 01/09 [facility] CHEM PANEL CO2 27 24 - 32 01/09 [facility] CHEM PANEL Calcium Lvl 8.5 8.5 - 10.5 01/09 [facility] CHEM PANEL Potassium 3.6 3.5 - 5.1 01/09 Result [facility] Comment: [facility] Center Slightly Hemolyzed. CHEM PANEL Glucose Lvl 205 70 - 99 01/09 [facility] CHEM PANEL AGAP 13.6 10.0 - 01/09 [facility] 20.0 [facility] HEMATOLOGY Basophils # 0.1 0.0 - 0.2 01/09 [facility] HEMATOLOGY Eosinophils 0.3 0.0 - 0.5 01/[place] [facility] HEMATOLOGY Monocytes # 1.0 0.0 - 0.8 01/09 [facility] HEMATOLOGY Lymphocytes 2.0 1.0 - 5.5 01/09 [place] # /2016 [facility] HEMATOLOGY Eosinophils 3.8 0.0 - 4.0 01/09 a s /2016 [facility] HEMATOLOGY Monocytes 13.6 2.0 - 12.0 01/09 [facility] HEMATOLOGY Lymphocytes 27.2 20.0 - 01/09 [place] 40.0 /2016 [facility] HEMATOLOGY Segs-Bands # 4.0 1.5 - 8.1 01/09 [facility] HEMATOLOGY Segs 54.7 45.0 - 01/09 [place] 75.0 [facility] HEMATOLOGY Basophils 0.7 0.0 - 1.0 01/09 [facility] HEMATOLOGY PT 15.3 12.0 - 01/09 [place] 14.7 [facility] HEMATOLOGY INR 1.18 0.85 - 01/09 [place] 1.17 [facility] HEMATOLOGY Platelet 119 133 - 450 01/09 [facility] HEMATOLOGY RDW 14.7 11.5 - 01/09 [place] 14.5 [facility] HEMATOLOGY MPV 9.6 7.4 - 10.4 01/09 [facility] HEMATOLOGY MCHC 34.6 32.0 - 01/09 [place] 36.0 [facility] HEMATOLOGY MCV 92.1 80.0 - 01/09 [place] 98.0 [facility] HEMATOLOGY Hct 33.2 36.0 - 01/09 [place] 48.0 [facility] HEMATOLOGY MCH 31.9 27.0 - 01/09 [place] 31.0 [facility] HEMATOLOGY RBC 3.60 4.20 - 01/09 [place] 5.40 /2016 [facility] HEMATOLOGY Hgb 11.5 12.0 - 01/09 [place] 16.0 [facility] HEMATOLOGY WBC 7.2 3.7 - 10.4 01/09 [facility] CHEM PANEL Total 6.2 6.4 - 8.4 01/09 [facility] Protein [facility] CHEM PANEL Albumin Lvl 2.7 3.5 - 5.0 01/09 s [facility] CHEM PANEL ALT 24 0 - 65 01/09 [facility] CHEM PANEL AST 40 0 - 37 01/09 [facility] CHEM PANEL Alk Phos 102 39 - 136 01/09 [facility] CHEM PANEL Bili Total 1.8 0.2 - 1.3 01/[address] [place] [address] CHEM PANEL Bili Direct 0.4 0.0 - 0.3 01/09 [facility] CHEM PANEL Globulin 3.5 2.7 - 4.2 01/[address] CHEM PANEL A/G Ratio 0.8 0.7 - 1.6 01/[address] CHEM PANEL Bili 1.4 0.0 - 1.0 01/09 [facility] Indirect [facility] HEMATOLOGY Basophils # 0.1 0.0 - 0.2 01/09 [facility] HEMATOLOGY Pos CO Value 0.400 01/09 [facility]2016 [facility] HEMATOLOGY Heparin Negative 1 Negative 01/09 Result [facility] Ab(AXEL) (01/08/17 8:08 PM) Comment: [facility] Medical assay detects Center heparin antibodies of IgG isotype. Antibodies of other isotypes have been reported to cause heparin-induc ed thrombocytope izabela. Therefore, if there is a strong clinical suspicion of HIT, additional study with a serotonin release assay is recommented. HEMATOLOGY Pat Od Value 0.082 01/09 [facility] CHEM PANEL Vitamin D, 28.6 30.0 - 01/07 [facility] 25-OH, Total 100.0 [facility] PARATHYROI PTH Intact 33.4 11.1 - 01/07 [facility] D PROFILE 79.5 [facility] CHEM PANEL B/C Ratio 17 6 - 25 01/[address] CHEM PANEL A/G Ratio 0.8 0.7 - 1.6 01/[address] CHEM PANEL Globulin 3.5 2.7 - 4.2 01/[address] CHEM PANEL ALT 32 0 - 65 01/[address] CHEM PANEL Alk Phos 126 39 - 136 01/[address] CHEM PANEL AST 58 0 - 37 01/[address] CHEM PANEL Total 6.3 6.4 - 8.4 01/05 [facility] Protein 2016 [facility] CHEM PANEL Albumin Lvl 2.8 3.5 - 5.0 01/05 [facility] CHEM PANEL Bili Total 1.6 0.2 - 1.3 01/[address] HEMATOLOGY Basophils # 0.1 0.0 - 0.2 01/05 a s [facility] SPECIAL Hgb A1C 8.7 <=5.6 % 01/05 [facility] CHEMISTRY /2016 [facility] HEMATOLOGY PTT 30.9 22.9 - 01/04 [place] 35.8 [facility] CHEM PANEL Bili Direct 0.4 0.0 - 0.3 01/04 a s [facility] CHEM PANEL Bili Total 1.6 0.2 - 1.3 01/04 [facility] CHEM PANEL A/G Ratio 0.8 0.7 - 1.6 01/04 [facility] CHEM PANEL Globulin 4.0 2.7 - 4.2 01/04 [facility] CHEM PANEL Bili 1.2 0.0 - 1.0 01/04 Indirect [facility] CHEM PANEL Total 7.4 6.4 - 8.4 01/04 Protein [facility] CHEM PANEL Alk Phos 135 39 - 136 01/04 [facility] CHEM PANEL Albumin Lvl 3.4 3.5 - 5.0 01/04 a s [facility] CHEM PANEL ALT 39 0 - 65 01/04 [facility] CHEM PANEL AST 58 0 - 37 01/04 [facility] BLOOD BANK Antibody Negative 01/04 [facility] RESULTS Scrn (01/04/17 5:12 AM) [facility] BLOOD BANK ABO/Rh O POS 01/04 [facility] RESULTS [facility] HEMATOLOGY K-time Rapid 1.0 0.6 - 2.3 01/04 [facility] HEMATOLOGY ACT (TEG) 97 86 - 118 01/04 [facility] HEMATOLOGY R-time Rapid 0.5 0.4 - 0.7 01/04 [facility] HEMATOLOGY [place] 0.3 01/04 [facility] HEMATOLOGY Angle Rapid 78 64 - 80 01/04 [facility] HEMATOLOGY Max 62 52 - 71 01/04 [facility] Amplitude [facility] Center HEMATOLOGY Estimated % 0.0 0.0 - 7.5 01/04 [place] [facility] HEMATOLOGY G-value 8.2 5.0 - 11.6 01/04 [facility] BEDSIDE Glucose POC 221 70 - 99 02/10 HI <sup>1</sup>I GLUCOSE nterpretive [facility] TESTING Data: Upper Reportable Limit: 200 mg/dL. CHEMISTRY AGAP 12.3 10.0 - 02/10 Normal MH 20.0 [facility] CHEMISTRY eGFR 93 02/10 <sup>5</sup>R MH esult [facility] Comment: The eGFR is calculated using the CKD-EPI formula. In most young, healthy individuals the eGFR will be >90 mL/min/1.73m2 . The eGFR declines with age. An eGFR of 60-89 may be normal in some populations, particularly the elderly, for whom the CKD-EPI formula has not been extensively validated. Use of the eGFR is not recommended in the following populations:& lt;br/>
I ndividuals with unstable creatinine concentration s, including patients and those with serious co-morbid conditions.<b r/>
Patie nts with extremes in muscle mass or diet.

The data above are obtained from the National Kidney Disease Education Program (NKDEP) which additionally recommends that when the eGFR is used in patients with extremes of body mass index for purposes of drug dosing, the eGFR should be multiplied by the estimated BMI. CHEMISTRY Creatinine 0.6 0.5 - 1.4 02/10 Normal l [facility] CHEMISTRY BUN 2 - 02/10 LOW MH [facility] CHEMISTRY Glucose Lvl 179 70 - 99 02/10 [place] <sup>7</sup>I nterpretive [facility] Data: Adult reference range values reflect the clinical guidelines
of the [place] [employer]. CHEMISTRY Calcium Lvl 8.1 8.5 - 10.5 02/10 LOW MH [facility] CHEMISTRY CO2 29 24 - 32 02/10 Normal [facility] CHEMISTRY Sodium Lvl 149 135 - 145 02/10 HI MH [facility] CHEMISTRY Chloride Lvl 111 95 - 109 02/10 HI MH [facility] CHEMISTRY Potassium 3.3 3.5 - 5.1 02/10 LOW Lvl [facility] HEMATOLOGY WBC X 10x3 7.3 3.7 - 10.4 02/10 Normal [facility] HEMATOLOGY RBC X 10x6 3.91 4.20 - 10 LOW MH 5.40 /2012 [facility] HEMATOLOGY Hgb 10.4 12.0 - 10/22 LOW MH 16.0 /2012 [facility] HEMATOLOGY Hct 32.9 36.0 - 02/10 LOW MH 48.0 /2012 [facility] HEMATOLOGY MPV 8.5 7.4 - 10.4 02/10 Normal MH /2012 [facility] HEMATOLOGY MCHC 31.6 32.0 - 02/10 LOW MH 36.0 /2012 [facility] HEMATOLOGY RDW 19.2 11.5 - 02/10 HI MH 14.5 /2012 [facility] HEMATOLOGY MCV 84.1 81.0 - 02/10 Normal MH 99.0 /2012 [facility] HEMATOLOGY MCH 26.6 27.0 - 10 LOW MH 31.0 /2012 [facility] HEMATOLOGY Platelet 152 133 - 450 02/10 Normal MH /2012 [facility] HEMATOLOGY Basophils # 0.0 0.0 - 0.2 02/10 Normal MH /2012 [facility] HEMATOLOGY Eosinophils 0.2 0.0 - 0.5 02/10 Normal MH # /2012 [facility] HEMATOLOGY Basophils 0.3 0.0 - 1.0 02/10 Normal MH /2012 [facility] HEMATOLOGY Eosinophils 3.1 0.0 - 4.0 02/10 Normal MH /2012 [facility] HEMATOLOGY Monocytes 10.0 2.0 - 12.0 02/10 Normal MH /2012 [facility] HEMATOLOGY Lymphocytes 41.5 20.0 - 02/10 HI MH 40.0 /2012 [facility] HEMATOLOGY Segs-Bands # 3.3 1.5 - 8.1 02/10 Normal MH [facility] HEMATOLOGY Monocytes # 0.7 0.0 - 0.8 02/10 Normal MH /2012 [facility] HEMATOLOGY Lymphocytes 3.0 1.0 - 5.5 02/10 Normal MH # /2012 [facility] HEMATOLOGY Segs 45.1 45.0 - 02/10 Normal MH 75.0 /2012 [facility] BEDSIDE Glucose POC 228 70 - 99 02/10 HI <sup>2</sup>I GLUCOSE /2012 nterpretive [facility] TESTING Data: Upper Reportable Limit: 200 mg/dL. BEDSIDE Glucose POC 326 70 - 99 02/09 HI <sup>3</sup>I GLUCOSE /2012 nterpretive [facility] TESTING Data: Upper Reportable Limit: 200 mg/dL. BEDSIDE Gluc POC Notify 02/09 GLUCOSE Comment 1 RN/ /2012 [facility] TESTING BEDSIDE Gluc POC Notify 02/09 GLUCOSE Comment 1 RN/ /2012 [facility] TESTING HEMATOLOGY Hgb 11.0 12.0 - 02/09 LOW MH 16.0 /2012 [facility] HEMATOLOGY Hct 34.6 36.0 - 02/09 LOW MH 48.0 /2012 [facility] BEDSIDE Gluc POC Notify 02/09 GLUCOSE Comment 1 RN/MD /2012 [facility] TESTING HEMATOLOGY Hgb 10.2 12.0 - 02/09 LOW MH 16.0 /2012 [facility] HEMATOLOGY Hct 32.1 36.0 - 02/09 LOW MH 48.0 /2012 [facility] HEMATOLOGY Platelet 131 133 - 450 10 LOW MH /2012 [facility] HEMATOLOGY RDW 18.8 11.5 - 10 HI MH 14. [facility] HEMATOLOGY MPV 8.8 7.4 - 10.4 10 Normal MH /2012 [facility] HEMATOLOGY MCV 83.0 81.0 - 10 Normal MH 99.0 /2012 [facility] HEMATOLOGY MCH 26.4 27.0 - 02/08 LOW MH 31.0 [facility] HEMATOLOGY MCHC 31.8 32.0 - 02/08 LOW MH 36.0 /2012 [facility] HEMATOLOGY RBC X 10x6 3.97 4.20 - 02/08 LOW MH 5.40 [facility] HEMATOLOGY WBC X 10x3 6.2 3.7 - 10.4 10 Normal MH /2012 [facility] HEMATOLOGY Platelet 133 133 - 450 10 Normal MH /2012 [facility] HEMATOLOGY MPV 8.7 7.4 - 10.4 10 Normal MH /2012 [facility] HEMATOLOGY RBC X 10x6 4.20 4.20 - 02/07 Normal MH 5.40 [facility] HEMATOLOGY WBC X 10x3 6.5 3.7 - 10.4 02/07 Normal MH /2012 [facility] HEMATOLOGY MCV 84.7 81.0 - 10 Normal MH 99.0 /2012 [facility] HEMATOLOGY MCH 26.7 27.0 - 10 LOW MH 31.0 [facility] HEMATOLOGY RDW 19.1 11.5 - 02/07 HI MH 14. [facility] HEMATOLOGY MCHC 31.5 32.0 - 02/07 LOW MH 36.0 [facility] BLOOD BANK RBC product Product available 4 02/05 Normal <sup> 4</sup>R RESULTS (02/05/2013 08:40:00) [facility] Comment: 02/05/2013 08:57 [id number]
Spoke to Gertrudis 02/05/2013 08:57 ttn BLOOD BANK ABO/Rh O POS 02/05 MH RESULTS /2012 [facility] BLOOD BANK Antibody Negative 02/05 Normal RESULTS Scrn (02/04/2013 19:40:00) /2012 [facility] CHEMISTRY Phosphorus 2.7 2.5 - 4.5 02/05 Normal [facility] CHEMISTRY Magnesium 1.5 1.8 - 2.4 02/05 LOW Lvl /2012 [facility] CHEMISTRY eGFR 93 02/05 <sup>6</sup>R [facility] Comment: The eGFR is calculated using the CKD-EPI formula. In most young, healthy individuals the eGFR will be >90 mL/min/1.73m2 . The eGFR declines with age. An eGFR of 60-89 may be normal in some populations, particularly the elderly, for whom the CKD-EPI formula has not been extensively validated. Use of the eGFR is not recommended in the following populations:& lt;br/>
I ndividuals with unstable creatinine concentration s, including patients and those with serious co-morbid conditions.<b r/>
Patie nts with extremes in muscle mass or diet.

The data above are obtained from the National Kidney Disease Education Program (NKDEP) which additionally recommends that when the eGFR is used in patients with extremes of body mass index for purposes of drug dosing, the eGFR should be multiplied by the estimated BMI. CHEMISTRY Bili Total 0.6 0.2 - 1.3 02/05 Normal [facility] CHEMISTRY ASPARTATE 49 0 - 37 02/05 [facility] TRANSAMINASE [facility] CHEMISTRY Alk Phos 141 39 - 136 02/05 HI MH [facility] CHEMISTRY Albumin Lvl 3.1 3.5 - 5.0 02/05 LOW [facility] CHEMISTRY ALANINE 30 0 - 65 02/05 Normal AMINOTRANSFE [facility] RASE CHEMISTRY Calcium Lvl 8.0 8.5 - 10.5 02/05 LOW [facility] CHEMISTRY Total 7.2 6.4 - 8.4 02/05 Normal Protein [facility] CHEMISTRY CO2 27 24 - 32 02/05 Normal [facility] CHEMISTRY Glucose Lvl 160 70 - 99 02/05 HI <sup>8</sup>I nterpretive [facility] Data: Adult reference range values reflect the clinical guidelines
of the [place] [employer]. CHEMISTRY BUN 5 7 - 22 02/05 LOW [facility] CHEMISTRY Creatinine 0.6 0.5 - 1.4 02/05 Normal Lvl /2012 [facility] CHEMISTRY Potassium 3.6 3.5 - 5.1 02/05 Normal Lvl /2012 [facility] CHEMISTRY Sodium Lvl 144 135 - 145 10 Normal /2012 [facility] CHEMISTRY Chloride Lvl 107 95 - 109 02/05 Normal /2012 [facility] CHEMISTRY AGAP 13.6 10.0 - 02/05 Normal 20.0 /2012 [facility] CHEMISTRY B/C Ratio 8 6 - 25 10 Normal /2012 [facility] CHEMISTRY A/G Ratio 0.8 0.7 - 1.6 02/05 Normal /2012 [facility] CHEMISTRY Globulin 4.1 2.0 - 4.0 02/05 HI /2012 [facility] HEMATOLOGY Lymphocytes 38.5 20.0 - 02/05 Normal 40.0 /2012 [facility] HEMATOLOGY Basophils 0.6 0.0 - 1.0 02/05 Normal /2012 [facility] HEMATOLOGY Monocytes 13.5 2.0 - 12.0 02/05 HI /2012 [facility] HEMATOLOGY Eosinophils 2.7 0.0 - 4.0 02/05 Normal /2012 [facility] HEMATOLOGY Segs 44.7 45.0 - 02/05 LOW 75.0 /2012 [facility] HEMATOLOGY Eosinophils 0.2 0.0 - 0.5 02/05 Normal # /2012 [facility] HEMATOLOGY Segs-Bands # 3.1 1.5 - 8.1 02/05 Normal /2012 [facility] HEMATOLOGY Lymphocytes 2.7 1.0 - 5.5 02/05 Normal # /2012 [facility] HEMATOLOGY Basophils # 0.0 0.0 - 0.2 02/05 Normal /2012 [facility] HEMATOLOGY Monocytes # 0.9 0.0 - 0.8 02/05 HI /2012 [facility] HEMATOLOGY aPTT 32.2 22.9 - 02/05 Normal <sup>10</sup> 35.8 /2013 Interpretive [facility] Data: Heparin Therapeutic Range: 57 - 92 Seconds HEMATOLOGY PROTIME 15.0 12.0 - 02/05 HI 14.7 /2012 [facility] HEMATOLOGY INR 1.19 0.85 - 02/05 HI <sup>9</sup>I 1.17 nterpretive [facility] Data: RECOMMENDED RANGES FOR PROTIME INR:
2.0-3.0 for most medical and surgical thromboemboli c states.
2.5-3.5 for artificial heart valves and recurrent embolism.<br/ >
INR SHOULD BE USED ONLY FOR PATIENTS ON STABLE ANTICOAGULANT THERAPY. URINALYSIS UA <=1.0 0.1 - 1.0 02/05 Urobilinogen mg/dL [facility] URINALYSIS UA Color Ltyellow 02/05 [facility] URINALYSIS UA Bili Negative Negative 02/05 *NA* [facility] (02/04/2013 19:30:00) URINALYSIS UA Ketones Negative Negative 02/05 mg/dL [facility] URINALYSIS UA Blood Moderate Negative 02/05 ABN MH *ABN* [facility] (02/04/2013 19:30:00) URINALYSIS UA Leuk Est Negative Negative 02/05 Normal (02/04/2013 19:30:00) [facility] URINALYSIS UA Glucose 50 mg/dL Negative 02/05 [facility] URINALYSIS UA Sq Epi Occasional Few 02/05 MH /LPF [facility] URINALYSIS UA Nitrite Negative Negative 02/05 Normal (02/04/2013 19:30:00) [facility] URINALYSIS UA Turbidity Slight Clear 02/05 ABN *ABN* [facility] (02/04/2013 19:30:00) URINALYSIS UA pH 6.0 5.0 - 8.0 02/05 Normal [facility] URINALYSIS UA Spec Grav 1.003 <=1.030 02/05 Normal [facility] URINALYSIS UA Protein Negative Negative 02/05 Normal mg/dL [facility] URINALYSIS UA Mucus Few /LPF None Seen 02/05 [facility] URINALYSIS UA Bacteria Moderate None Seen 02/05 ABN /HPF [facility] URINALYSIS UA CaOx Sofie Occasional None Seen 02/05 /HPF [facility] URINALYSIS UA WBC 1 0 - 5 02/05 Normal [facility] URINALYSIS UA RBC 2 0 - 2 02/05 Normal [facility] BEDSIDE Gluc POC Notify 01/27 GLUCOSE Comment 2 RN/ /2012 [facility] TESTING BEDSIDE Glucose POC 291 70 - 99 01/27 HI <sup>1</sup>I GLUCOSE /2012 nterpretive [facility] TESTING Data: Upper Reportable Limit: 200 mg/dL. BEDSIDE Gluc POC Assess 01/27 GLUCOSE Comment 1 patient /2012 [facility] TESTING BEDSIDE Gluc POC Notify 01/27 GLUCOSE Comment 2 RN/MD /2012 [facility] TESTING BEDSIDE Gluc POC Assess 01/27 GLUCOSE Comment 1 patient /2012 [facility] TESTING BEDSIDE Glucose POC 236 70 - 99 10 HI <sup>2</sup>I MH GLUCOSE /2012 nterpretive [facility] TESTING Data: Upper Reportable Limit: 200 mg/dL. HEMATOLOGY RDW 20.0 11.5 - 10 HI MH 14.5 /2012 [facility] HEMATOLOGY MPV 8.5 7.4 - 10.4 10/ Normal MH /2012 [facility] HEMATOLOGY Platelet 148 133 - 450 10 Normal MH /2012 [facility] HEMATOLOGY WBC X 10x3 5.7 3.7 - 10.4 10 Normal MH /2012 [facility] HEMATOLOGY Hct 30.5 36.0 - 10 LOW MH 48.0 /2012 [facility] HEMATOLOGY Hgb 9.6 12.0 - 10 LOW MH 16.0 /2012 [facility] HEMATOLOGY RBC X 10x6 3.60 4.20 - 10 LOW MH 5.40 /2012 [facility] HEMATOLOGY MCH 26.6 27.0 - 1008 LOW MH 31.0 /2012 [facility] HEMATOLOGY MCV 84.5 81.0 - 1008 Normal MH 99.0 /2012 [facility] HEMATOLOGY MCHC 31.5 32.0 - 1008 LOW MH 36.0 /2012 [facility] HEMATOLOGY Segs 53.6 45.0 - 10/08 Normal MH 75.0 /2012 [facility] HEMATOLOGY Lymphocytes 32.8 20.0 - 1008 Normal MH 40.0 /2012 [facility] HEMATOLOGY Monocytes 11.3 2.0 - 12.0 10/ Normal MH /2012 [facility] HEMATOLOGY Eosinophils 1.9 0.0 - 4.0 10/ Normal MH /2012 [facility] HEMATOLOGY Basophils 0.4 0.0 - 1.0 10/08 Normal MH /2012 [facility] HEMATOLOGY Segs-Bands # 3.0 1.5 - 8.1 10/ Normal MH /2012 [facility] HEMATOLOGY Lymphocytes 1.9 1.0 - 5.5 10/08 Normal MH # /2012 [facility] HEMATOLOGY Monocytes # 0.6 0.0 - 0.8 01/27 Normal MH /2012 [facility] HEMATOLOGY Eosinophils 0.1 0.0 - 0.5 / Normal MH # /2012 [facility] HEMATOLOGY Basophils # 0.0 0.0 - 0.2 10/08 Normal MH /2012 [facility] BEDSIDE Gluc POC Assess 01/27 GLUCOSE Comment 1 patient /2012 [facility] TESTING BEDSIDE Glucose POC 233 70 - 99 01/27 HI <sup>3</sup>I GLUCOSE /2012 nterpretive [facility] TESTING Data: Upper Reportable Limit: 200 mg/dL. BEDSIDE Gluc POC Notify 01/27 GLUCOSE Comment 2 RN/ /2012 [facility] TESTING HEMATOLOGY Monocytes # 0.7 0.0 - 0.8 01/26 Normal MH /2012 [facility] HEMATOLOGY Lymphocytes 1.8 1.0 - 5.5 10 Normal MH # /2012 [facility] HEMATOLOGY Eosinophils 2.3 0.0 - 4.0 01/26 Normal /2012 [facility] HEMATOLOGY Basophils 0.2 0.0 - 1.0 01/26 Normal /2012 [facility] HEMATOLOGY Segs-Bands # 2.2 1.5 - 8.1 01/26 Normal /2012 [facility] HEMATOLOGY Segs 46.1 45.0 - 01/26 Normal MH 75.0 [facility] HEMATOLOGY Lymphocytes 37.9 20.0 - 01/26 Normal MH 40.0 [facility] HEMATOLOGY Monocytes 13.5 2.0 - 12.0 01/26 HI MH /2012 [facility] HEMATOLOGY Basophils # 0.0 0.0 - 0.2 01/26 Normal /2012 [facility] HEMATOLOGY Eosinophils 0.1 0.0 - 0.5 01/26 Normal MH # /2012 [facility] HEMATOLOGY PROTIME 16.5 12.0 - 01/26 HI 14.7 /2012 [facility] HEMATOLOGY INR 1.35 0.85 - 01/26 HI <sup>10</sup> MH 1.17 /2012 Interpretive [facility] Data: RECOMMENDED RANGES FOR PROTIME INR:
2.0-3.0 for most medical and surgical thromboemboli c states.
2.5-3.5 for artificial heart valves and recurrent embolism.<br/ >
INR SHOULD BE USED ONLY FOR PATIENTS ON STABLE ANTICOAGULANT THERAPY. HEMATOLOGY Hct 28.5 36.0 - 01/26 LOW MH 48.0 /2012 [facility] HEMATOLOGY MCV 85.8 81.0 - 10 Normal 99.0 /2012 [facility] HEMATOLOGY MCH 27.2 27.0 - 01/26 Normal MH 31.0 /2012 [facility] HEMATOLOGY MCHC 31.7 32.0 - 10 LOW MH 36.0 /2012 [facility] HEMATOLOGY Hgb 9.0 12.0 - 10 LOW 16.0 /2012 [facility] HEMATOLOGY Platelet 133 133 - 450 10/07 Normal MH /2012 [facility] HEMATOLOGY MPV 8.9 7.4 - 10.4 10/ Normal MH /2012 [facility] HEMATOLOGY RDW 20.0 11.5 - 10/07 HI MH 14.5 /2012 [facility] HEMATOLOGY WBC X 10x3 4.9 3.7 - 10.4 10/07 Normal MH /2012 [facility] HEMATOLOGY RBC X 10x6 3.32 4.20 - 10/07 LOW MH 5.40 /2012 [facility] TUMOR AFP 3.0 0.0 - 11.0 10/07 Normal MH MARKERS /2012 [facility] HEMATOLOGY WBC X 10x3 5.9 3.7 - 10.4 10/ Normal MH /2012 [facility] HEMATOLOGY MCV 85.3 81.0 - 10/07 Normal MH 99.0 /2012 [facility] HEMATOLOGY Platelet 153 133 - 450 10/ Normal MH /2012 [facility] HEMATOLOGY RDW 19.6 11.5 - 10/07 HI MH 14. /2012 [facility] HEMATOLOGY Hgb 9.5 12.0 - 1007 LOW MH 16.0 /2012 [facility] HEMATOLOGY RBC X 10x6 3.55 4.20 - 10/07 LOW MH 5.40 /2012 [facility] HEMATOLOGY Hct 30.3 36.0 - 10/07 LOW MH 48.0 /2012 [facility] HEMATOLOGY MPV 8.9 7.4 - 10.4 10 Normal MH /2012 [facility] HEMATOLOGY MCHC 31.4 32.0 - 10/07 LOW MH 36.0 /2012 [facility] HEMATOLOGY MCH 26.8 27.0 - 10/07 LOW MH 31.0 /2012 [facility] HEMATOLOGY Basophils # 0.0 0.0 - 0.2 10/ Normal MH /2012 [facility] HEMATOLOGY Monocytes # 0.7 0.0 - 0.8 10/07 Normal MH /2012 [facility] HEMATOLOGY Eosinophils 0.1 0.0 - 0.5 10/07 Normal MH # /2012 [facility] HEMATOLOGY Monocytes 11.7 2.0 - 12.0 10/07 Normal MH /2012 [facility] HEMATOLOGY Eosinophils 2.4 0.0 - 4.0 10/07 Normal MH /2012 [facility] HEMATOLOGY Basophils 0.6 0.0 - 1.0 10/07 Normal MH /2012 [facility] HEMATOLOGY Segs-Bands # 2.6 1.5 - 8.1 10/ Normal MH /2012 [facility] HEMATOLOGY Lymphocytes 2.4 1.0 - 5.5 10/07 Normal MH # /2012 [facility] HEMATOLOGY Lymphocytes 41.2 20.0 - 01/26 HI MH 40.0 [facility] HEMATOLOGY Segs 44.1 45.0 - 01/26 LOW MH 75.0 [facility] IMMUNOLOGY Hep B Core Negative Negative 01/25 MH Ab *NA* /2012 [facility] (01/25/2013 09:31:00) IMMUNOLOGY Hep C Ab Negative Negative 01/25 MH *NA* [facility] (01/25/2013 09:31:00) IMMUNOLOGY Hep Bs Ag Negative Negative 01/25 MH *NA* [facility] (01/25/2013 09:31:00) IMMUNOLOGY Hep A Tot Positive Negative 01/25 MH *NA* /2012 [facility] (01/25/2013 09:31:00) IMMUNOLOGY Hep Bs Ab 79.7 <=7.4 01/25 HI <sup>13</sup> MH Interpretive [facility] Data: <=7.4 mIU/mL------- -Negative for Anti-HBs. Not immune to HBV infection.

7.5-12 .4 mIU/mL--Borde arnaldo for Anti-HBs and immune status
should be further assessed by considering other factors such
as clinical status follow-up testing, associated risk factors,
and the use of additional diagnostic information.< br/>
>12. 4 mIU/mL------- Positive for Anti-HBs. Immune to HBV infection BLOOD BANK RBC product Product available 4 01/25 Normal <sup> 4</sup>R RESULTS (01/25/2013 08:32:00) /2012 [facility] Comment: 01/25/2013 09:23 [id number]
Called to _CRYSTAL at _01/25/2013 09:20 by [facility]_. CHEMISTRY Magnesium 1.7 1.8 - 2.4 01/25 LOW Lvl [facility] CHEMISTRY Phosphorus 1.9 2.5 - 4.5 01/25 LOW MH [facility] CHEMISTRY Troponin-I 0.04 0.00 - 01/25 Normal MH 0.40 /2012 [facility] CHEMISTRY Total CK 116 12 - 191 01/25 Normal [facility] CHEMISTRY CK MB 0.6 0.5 - 3.6 01/25 Normal MH [facility] CHEMISTRY CK-MB INDEX 0.5 0.0 - 2.5 01/25 Normal [facility] CHEMISTRY Troponin-I 0.04 0.00 - 10 Normal 0.40 /2012 [facility] CHEMISTRY Total CK 105 12 - 191 01/25 Normal [facility] CHEMISTRY CK MB 0.7 0.5 - 3.6 01/25 Normal [facility] CHEMISTRY CK-MB INDEX 0.7 0.0 - 2.5 01/25 Normal [facility] CHEMISTRY Chloride Lvl 107 95 - 109 01/24 Normal [facility] CHEMISTRY Potassium 3.6 3.5 - 5.1 01/24 Normal MH Lvl [facility] CHEMISTRY Sodium Lvl 143 135 - 145 01/24 Normal [facility] CHEMISTRY eGFR 93 01/24 <sup>6</sup>R esult [facility] Comment: The eGFR is calculated using the CKD-EPI formula. In most young, healthy individuals the eGFR will be >90 mL/min/1.73m2 . The eGFR declines with age. An eGFR of 60-89 may be normal in some populations, particularly the elderly, for whom the CKD-EPI formula has not been extensively validated. Use of the eGFR is not recommended in the following populations:& lt;br/>
I ndividuals with unstable creatinine concentration s, including patients and those with serious co-morbid conditions.<b r/>
Patie nts with extremes in muscle mass or diet.

The data above are obtained from the National Kidney Disease Education Program (NKDEP) which additionally recommends that when the eGFR is used in patients with extremes of body mass index for purposes of drug dosing, the eGFR should be multiplied by the estimated BMI. CHEMISTRY BUN 7 7 - 22 01/24 Normal [facility] CHEMISTRY Creatinine 0.6 0.5 - 1.4 01/24 Normal Lvl [facility] CHEMISTRY CO2 27 24 - 32 01/24 Normal [facility] CHEMISTRY Calcium Lvl 7.6 8.5 - 10.5 01/24 LOW [facility] CHEMISTRY Glucose Lvl 175 70 - 99 01/24 HI <sup>8</sup>I nterpretive [facility] Data: Adult reference range values reflect the clinical guidelines
of the [place] [employer]. CHEMISTRY AGAP 12.6 10.0 - 01/24 Normal MH 20. [facility] CHEMISTRY Phosphorus 2.6 2.5 - 4.5 01/24 Normal MH [facility] CHEMISTRY Magnesium 1.6 1.8 - 2.4 10 LOW MH Lvl [facility] BLOOD BANK ABO/Rh O POS 01/24 RESULTS [facility] BLOOD BANK RBC product Product available 5 01/24 Normal <sup> 5</sup>R RESULTS (01/23/2013 23:33:26) /2012 esult [facility]i [facility]ber[facility] Comment: 01/23/2013 23:39 [id number]
Called to Pancho PAUSLON at 01/23/2013 23:39_ by _PB. CHEMISTRY B/C Ratio 17 6 - 25 01/24 Normal MH [facility] CHEMISTRY AGAP 13.8 10.0 - 01/24 Normal 20. [facility] CHEMISTRY Globulin 3.2 2.0 - 4.0 01/24 Normal [facility] CHEMISTRY A/G Ratio 0.9 0.7 - 1.6 01/24 Normal [facility] CHEMISTRY Potassium 3.8 3.5 - 5.1 01/24 Normal Lvl [facility] CHEMISTRY Chloride Lvl 106 95 - 109 01/24 Normal [facility] CHEMISTRY Sodium Lvl 142 135 - 145 01/24 Normal [facility] CHEMISTRY eGFR 88 01/24 <sup>7</sup>R ult [facility] Comment: The eGFR is calculated using the CKD-EPI formula. In most young, healthy individuals the eGFR will be >90 mL/min/1.73m2 . The eGFR declines with age. An eGFR of 60-89 may be normal in some populations, particularly the elderly, for whom the CKD-EPI formula has not been extensively validated. Use of the eGFR is not recommended in the following populations:& lt;br/>
I ndividuals with unstable creatinine concentration s, including patients and those with serious co-morbid conditions.<b r/>
Patie nts with extremes in muscle mass or diet.

The data above are obtained from the National Kid[employer] Disease Education Program (NKDEP) which additionally recommends that when the eGFR is used in patients with extremes of body mass index for purposes of drug dosing, the eGFR should be multiplied by the estimated BMI. CHEMISTRY ASPARTATE 46 0 - 37 01/24 [facility] TRANSAMINASE [facility] CHEMISTRY Alk Phos 168 39 - 136 01/24 HI MH [facility] CHEMISTRY Bili Total 0.6 0.2 - 1.3 01/24 Normal MH [facility] CHEMISTRY Albumin Lvl 2.9 3.5 - 5.0 01/24 LOW MH [facility] CHEMISTRY ALANINE 32 0 - 65 01/24 Normal AMINOTRANSFE /2012 [facility] RASE CHEMISTRY Calcium Lvl 7.8 8.5 - 10.5 01/24 LOW [facility] CHEMISTRY Total 6.1 6.4 - 8.4 01/24 LOW Protein [facility] CHEMISTRY CO2 26 24 - 32 01/24 Normal [facility] CHEMISTRY Creatinine 0.7 0.5 - 1.4 01/24 Normal Lvl [facility] CHEMISTRY Glucose Lvl 233 70 - 99 01/24 MD <sup>9</sup>I nterpretive [facility] Data: Adult reference range values reflect the clinical guidelines
of the [place] [employer]. CHEMISTRY BUN 12 7 - 22 01/24 Normal [facility] HEMATOLOGY PROTIME 16.7 12.0 - 01/24 [facility] 14.7 /2012 [facility] HEMATOLOGY INR 1.37 0.85 - 01/24 MD <sup>11</sup> 1.17 /2012 Interpretive [facility] Data: RECOMMENDED RANGES FOR PROTIME INR:
2.0-3.0 for most medical and surgical thromboemboli c states.
2.5-3.5 for artificial heart valves and recurrent embolism.<br/ >
INR SHOULD BE USED ONLY FOR PATIENTS ON STABLE ANTICOAGULANT THERAPY. HEMATOLOGY aPTT 29.7 22.9 - 01/24 Normal <sup>12</sup> 35.8 /2012 Interpretive [facility] Data: Heparin Therapeutic Range: 57 - 92 Seconds BLOOD BANK ABO/Rh O POS 01/24 RESULTS /2012 [facility] BLOOD BANK Antibody Negative 01/24 [facility] RESULTS Scrn (01/23/2013 22:13:00) /2012 [facility] STOOL Occult Bld Positive Negative 01/24 [facility] TESTS Stl *ABN* /2012 [facility] (01/23/2013 21:10:00) Pathology Reports No Data Provided for This Section Diagnostic Reports Report Value Date Source Foot series DX Left foot 3 views: There is generalized osteoporosis. There are transverse linear sclerotic bands at the junction of the heads and necks of the 2nd, 3rd and 4th metatarsals consistent with healing fract 01/29/2017 [facility] ures. An incomplete healing fracture of the neck of the 5th metatarsal may also be present. The alignment appears anatomic. There is no acute fracture or other significant osseous abnormality. DLAWRENCE-PC Hip 2/3 views uni DX Patient Name: JANET ESTEVES 01[birth year] 17 [facility] [place] : 1940; Age: 76 years y/o Female MR: [id number] * LEFT HIP (2 views) with frontal PELVIS History: Injury, trauma to left hip. Technique: Frontal neutral a nd frog-leg images of the left hip and a frontal radiograph of the pelvis were obtained. FINDINGS: There is no evidence of fracture, dislocation, o r acute change. There is a left bipolar hip prosthesis which jevon ears to be in good position. The pelvic ring is intact. IMPRESSION: 1. No evidence of fracture or acute change. 2. Bipolar left hip prosthesis appears be in goo d position. SL: [id number] Pelvis AP DX EXAM: XR PELVIS 1 VIEW 01/05/2017 [facility] DATE: 01/05/2017 7:15 AM CDT [facility] INDICATION: POST-OP LUIS - POST-OP LEFT LUIS COMPARISON: Same day TECHNIQUE: A single AP supine radiograph of the pelvis FINDINGS: Left bipolar hemiarthroplasties seen i n satisfactory alignment. The soft tissues are unremarkable. IMPRESSION: Postoperative i maging demonstrates satisfactory appearance of left bipolar hemiarthroplasty. Pelvis AP DX EXAM: Pelvis AP DX, Pelvis AP DX 01/05/2017 [facility] DATE: 01/05/2017 7:14 AM CDT [facility] INDICATION: INTRA-OP LUIS - INTRA-OP LEFT LUIS . Intraoperative check. COMPARISON: Previous day TECHNIQUE: AP projections of pelvis. DISCUSSION: Intraoperative check radiogr aph demonstrates satisfactory position and alignment of left femoral sizing rasp Artifact from intraoperative instrumentation is noted and limits some of the evaluation.. IMPRESSION: Intraoperative r adiograph demonstrates satisfactory alignment of the left femoral sizing rasp. Pelvis AP DX EXAM: Pelvis AP DX, Pelvis AP DX 01/05/2017 [facility] DATE: 01/05/2017 7:14 AM CDT [facility] INDICATION: INTRA-OP LUIS - INTRA-OP LEFT LUIS . Intraoperative check. COMPARISON: Previous day TECHNIQUE: AP projections of pelvis. DISCUSSION: Intraoperative check radiogr aph demonstrates satisfactory position and alignment of left femoral sizing rasp Artifact from intraoperative instrumentation is noted and limits some of the evaluation.. IMPRESSION: Intraoperative r adiograph demonstrates satisfactory alignment of the left femoral sizing rasp. Ankle 3 views DX EXAM: XR LEFT ANKLE 3 VIEWS 01/04/2017 [facility] EXAM: XR LEFT FOOT 3 VIEWS [facility] DATE: 01/04/2017 10:16 AM CDT INDICATION: - pain s/p fall COMPARISON: None. [place] SECTION: ER TECHNIQUE: 3 views of the ankle, 3 views of the foot. FINDINGS: Osteopenia noted. Minimally displaced fracture s of the second, third, and 4th metatarsal necks noted. Small plantar calcaneal enthesophyte present. Small Achilles insertion calcaneal enthesophyte present. Joint alignment is normal. Soft tissue swelling of the foot and ankle noted . IMPRESSION: Minimally displaced fractures of the second, thi rd, and 4th metatarsal necks. Soft tissue swelling of the foot and ankle. Calcaneal enthesopathy. Osteopenia. Foot series DX EXAM: XR LEFT ANKLE 3 VIEWS 01/04/2017 [facility] EXAM: XR LEFT FOOT 3 VIEWS Cente r DATE: 01/04/2017 10:16 AM CDT INDICATION: - pain s/p fall COMPARISON: None. UT SECTION: ER TECHNIQUE: 3 views of the ankle, 3 views of the foot. FINDINGS: Osteopenia noted. Minimally displaced fracture s of the second, third, and 4th metatarsal necks noted. Small plantar calcaneal enthesophyte present. Small Achilles insertion calcaneal enthesophyte present. Joint alignment is normal. Soft tissue swelling of the foot and ankle noted . IMPRESSION: Minimally displaced fractures of the second, thi rd, and 4th metatarsal necks. Soft tissue swelling of the foot and ankle. Calcaneal enthesopathy. Osteopenia. Hip 2/3 views uni DX EXAM: XR LEFT HIP 2 VIEW AND AP PELVIS [facility] EXAM: XR LEFT FEMUR 2 VIEWS Cent er DATE: 01/04/2017 4:34 AM CDT INDICATION: - Hip fracture COMPARISON: None. TECHNIQUE: 2 views of the hip including AP view of the pelvis. 2 views femur. FINDINGS: Mid cervical left femoral neck fracture is seen with superior migration of the distal fragment by about 1.5 cm. The hip joints are aligned. Pelvic ring is intact. Moderate knee osteoarthrosis is noted with medial compartment joint space narrowing. IMPRESSION: Mildly displaced left femoral neck f racture. UT SECTION: ER Femur series DX EXAM: XR LEFT HIP 2 VIEW AND AP PELVIS 01/05/20 17 [facility] EXAM: XR LEFT FEMUR 2 VIEWS Cent er DATE: 01/04/2017 4:34 AM CDT INDICATION: - Hip fracture COMPARISON: None. TECHNIQUE: 2 views of the hip including AP view of the pelvis. 2 views femur. FINDINGS: Mid cervical left femoral neck fracture is seen with superior migration of the distal fragment by about 1.5 cm. The hip joints are aligned. Pelvic ring is intact. Moderate knee osteoarthrosis is noted with medial compartment joint space narrowing. IMPRESSION: Mildly displaced left femoral neck f racture. UT SECTION: ER Abdomen RLQ US HISTORY: Ascites. 02/09/2013 [facility] ultrasound abdomen w as performed to evaluate for possible paracentesis. Only scant ascites fluid is noted. As such, paracentesis was not performed at this time. SL:13 Bowel acute blood TAGGED RED BLOOD CELL SCAN NM 02/06/2013 [facility] loss imaging NM INDICATION: GI BLEED TECHNIQUE: The patient was i njected intravenously with 23.3 mCi of Tc-99m labeled red blood cells. Images are obtained at five-minute intervals for 60 minutes. FINDINGS: The initial examin ation reveals a small tubular structure extending from the right lower quadrant , along the course of the colon, to the left lower quadrant. There is also some focal increas ed activity in the region of the gabriella hepatis in the upper midline abdomen overlying the region of the superior mesenteric vein an upper IVC. Focal activity is also noted in the pelvis in the midline. Over the course of the exami nation there is little change in the pattern of activity in the abdomen. This includes the triangular focus of activity in the midline pelvis. IMPRESSION: The examination is difficult to interpret. The absence of significant change in the pattern of activity over the course the examination is against an active bleed. The observed findings may best be explained as vascula r activity which is persistent, possibly due to portal venous congestion, cardiac congestion, or both. The small focus of activity in the pelvis is presumed to represent bladder. SL: 12 Abdomen complete ABDOMINAL ULTRASOUND WITH ASSOCIATED DOPPLER ST UDY: 01/25/2013 [facility] with Abdominal Doppler DISCUSSION: Best images poss ible are obtained. No older studies available for comparison. The liver is mildly enlarged . The hepatic parenchyma has a diffusely heterogeneous echotexture without discrete focal hepatic lesions. Mild irregularity of the hepatic contour. The gallbladder has been previously removed. The spleen, biliary system, kidneys, visualized pancreas, visualized aorta, and visualized IVC have a normal appearance. The infrahepatic IVC, portions of the head and tail of the pancreas, and portions of the distal abdominal aor ta are obscured. Small amount of peritoneal fluid in the right upper quadrant. Antegrade flow is present in the main portal vein, left portal vein, and hepatic veins. While flow is seen in the right hepatic and splenic veins, directionality cannot be determined on the images provi ded. Antegrade flow is seen in the hepatic arter y. IMPRESSION: 1. Mild hepatomegaly. Change s consistent with diffuse hepatocellular disease, most likely cirrhosis. If there is a strong clinical suspicion for superimposed neoplasm, then MRI of the liver without and with contrast is recommended. 2. Status post cholecystectomy. 3. Small amount of peritoneal fluid. 4. Limited study of the port al venous system without obvious abnormality identified within the limits described above. SL: 13 Consultation Notes No Data Provided for This Section Discharge Summaries No Data Provided for This Section History and Physicals No Data Provided for This Section Vital Signs Vital Sign Value Date Comments Source Respitory Rate 18 01/11/2017 [facility] Temperature Oral (F) 98.5 F 01/11/2017 [facility] Systolic (mm Hg) 123 01/11/2017 [facility] Diastolic (mm Hg) 75 01/11/2017 [facility] Heart Rate 75 01/11/2017 [facility] Temperature Oral (F) 98.4 F 01/11/2017 [facility] Systolic (mm Hg) 113 01/11/2017 [facility] Diastolic (mm Hg) 65 01/11/2017 [facility] Respitory Rate 18 01/11/2017 [facility] Heart Rate 72 01/11/2017 [facility] Heart Rate 75 01/11/2017 [facility] Respitory Rate 18 01/11/2017 [facility] Systolic (mm Hg) 103 01/11/2017 [facility] Diastolic (mm Hg) 58 01/11/2017 [facility] Center Temperature Oral (F) 98.5 F 01/11/2017 [facility] Height 157.48 cm 01/04/2017 [facility] Weight 81.818 01/04/2017 [facility] BMI Calculated 32.99 01/04/2017 [facility] [place] BMI Calculated 32.99 01/04/2017 [facility] Center Weight 81.818 01/04/2017 [facility] Height 157.48 cm 01/04/2017 [facility] Heart Rate 77 02/10/2013 [facility] Rate 17 02/10/2013 [facility] Systolic (mm Hg) 117 02/10/[facility] Diastolic (mm Hg) 65 02/10/[address] Temperature Oral (F) 98.3 F 02/10/2013 [facility] Heart Rate 77 02/10/2013 [facility] Respitory Rate 16 02/10/2013 [facility] Diastolic (mm Hg) 75 02/10/[address] Systolic (mm Hg) 127 02/10/2013 [facility] Temperature Oral (F) 98.4 F 02/10/2013 [facility] Respitory Rate 16 02/10/2013 [facility] Heart Rate 75 02/10/2013 [facility] Temperature Oral (F) 98.4 F 02/10/2013 [facility] Diastolic (mm Hg) 68 02/10/[address] Systolic (mm Hg) 109 02/10/2013 [facility] Weight 84.3 02/05/2013 [facility] Weight 79.545 02/05/2013 [facility] Height 157.48 cm 02/05/2013 [facility] Heart Rate 79 01/27/2013 [facility] Temperature Oral (F) 97.6 F 01/27/2013 [facility] Diastolic (mm Hg) 62 01/27/[address] Respitory Rate 18 01/27/2013 [facility] Systolic (mm Hg) 127 01/27/2013 [facility] Diastolic (mm Hg) 66 01/27/[address] Respitory Rate 18 01/27/2013 [facility] Systolic (mm Hg) 113 01/27/2013 [facility] Heart Rate 76 01/27/2013 [facility] Temperature Oral (F) 98.1 F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
--- OUTSIDE RECORDS SUMMARY | 2019-10-15 22:03 | XMS REPORT | Continuity of Care Document ---
:1940 Author Organization [facility] t Address [address] [place] [address] Care Team Providers Name Role Phone Krista Culver MD Primary Care Physician Hemant ALVAREZ Attending Clinician Unavailable Bunny REWRITER Attending Clinician Rita BOLAÑOS Attending Clinician Ian Lynch Attending Clinician Janine CALDWELL Attending Clinician LYNSEY Attending Clinician Unavailable Bhanu PA Attending Clinician Aida PA Attending Clinician Dutch ALVAREZ G Attending Clinician Unavailable Eric RN Attending Clinician Unavailable Yoly BOLAÑOS Attending Clinician Riley BOLAÑOS Attending Clinician Olive Hardy MD Attending Clinician Javon BOLAÑOS Attending Clinician Mary BOLAÑOS Attending Clinician Raheem BOOKER Attending Clinician Harleen Mahan Attending Clinician Dayne BOLAÑOS Attending Clinician Krista Khan MD Attending Clinician Parth Steven Attending Clinician Andreia Steven Attending Clinician Poornima Gonzalez Attending Clinician JOSE DE PAZ Attending Clinician Unavailable GABRIELLA Attending Clinician Unavailable Felicia Menon Attending Clinician Kim Attending Clinician RAQUEL PAINTER Attending Clinician Unavailable ERICA BRENNAN Attending Clinician Unavailable Minesh Cassidy Admitting Clinician JOSE DE PAZ Admitting Clinician Unavailable ERICA BRENNAN Admitting Clinician Unavailable Payers Payer Name Policy Type Policy Number Effective Date Expiration Date Balbina gabriel AETNA MEDICAREAETNA xxxxxxxx 2013 MD Maria Esther higgins MEDICARE 00:00:00 PPOxxxxxxxx1 -PresentMedicare Problems Condition Condition Condition Status Onset Resolution Last Treating Co mments Source Name Details Category Date Date Treatment Clinician Date Diabetes Diabetes Disease Active mellitus mellitus 8-20 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 Acute Acute Disease Active respirator respirator 8-20 An derso y failure y failure 00:00: n with with 00 hypoxia hypoxia Hypertensi Hypertensi Disease Active M D on on 11-11 Anderso 00:00: n 00 S72.032D - Diagnosis Active 2016-042017-02-06 Memoria "DISPL 0-10 13:33:00 l MIDCERVICA S72.032D 00:01: He rmann L FX L - "DISPL 00 FEMUR MIDCERVICA L FX L FEMUR Active 01/29/2017 [facility] LEFT Diagnosis Active 2017-01-18 Mem oria FEMORAL 01-04 21:59:00 l NECK FX LEFT 00:00: [place] FEMORAL 00 NECK FX Active 01/04/2017 [facility] Awaiting Awaiting Disease [facility] transplant transplant 00:00: Me dical 00 Center Angina at Angina at Disease Active [facility] rest rest 2-28 [facility] 00:[facility]: Medical 00 Center Pre-transp Pre-transp Disease Active Last [facility] lant lant 2 Assessmen [place] - evaluation evaluation 00:00: t & Plan: Medical for liver for liver 00 Risks/raine C enter transplant transplant efits/alt ernatives of liver transplan tation discussed in-depth. All questions answered. From a surgical perspecti ve, I am concerned about her functiona l status. She reports being seen by a physical therapist , but as of now can not get around well. She needs to be seen by our exercise physiolog ist. That, combined with her age, prior surgeries , and obesity make her a marginal candidate at best from my perspecti ve. Continue multidisc iplinary evaluatio n with the ultimate decision for listing in MRB. Hepatocell Hepatocell Disease Active 2015-[address] ular ular 2 Assessmike Wood - carcinoma carcinoma 00:00: t & Plan: M edical Continued Center locoregio nal therapy as indicated . Hypothyroi Hypothyroi Disease Active [facility] d d 01-11[facility] - 00:00: Medical [place] Esophageal Esophageal Disease Active [facility] varices varices 01-11 [facility] - 00:[facility]: Medical [place] Hepatic Hepatic Disease Active Last [facility] [place] - athy athy 00:00: t & Plan: Medical 00 Continue Center lactulose as prescribe d. 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 01-11 [facility] - thrombosis thrombosis 00:00: Tx dical [place] Anemia due Anemia due Disease Active [facility] to acute to acute 12-11 [facility] - blood loss blood loss 00:00: Me dical [place] Hypotensio Hypotensio Disease Active [facility] n n 12-11 [facility] - 00:00: Medical 00 [place] S/P TIPS S/P TIPS Disease Active [facility] (transjugu (transjugu 20 Cristine kes - lar lar 00:00: Medical intrahepat intrahepat 00 Ce nter ic ic portosyste portosyste susan shunt) susan shunt) RECTAL Diagnosis Active 2012-042013-02-04 [facility] oria BLEEDING 0-16 19:20:00 l RECTAL 09:00: Alejandro BLEEDING 00 Active 02/04/2013 [facility] Diagnosis Active 2012-042013-02-09 Mem oria BLEEDING 0-16 12:27:00 l GI 09:00: [place] BLEEDING 00 Active 02/04/2013 [facility] BLEED Diagnosis Active 2012-042013-01-27 emoria 0-04 17:20:00 l GI BLEED 12:00: Elie n 00 Active 01/23/2013 [facility] Cirrhosis Cirrhosis Disease Active [facility] 6[facility]04 [facility] - 00:[facility]: Medical 00 [place] Fatty Fatty Disease Active Overview: [facility] liver liver 6-04 ICD9 DX [facility] - disease, disease, 00:00: [facility] Medi stephenie nonalcohol nonalcohol 00 Ce nter ic ic Portal Portal Disease Active [facility] hypertensi hypertensi 6-04 Cristine kes - on on 00:00: Medical 00 [place] Diabetes Diabetes Disease Active Last [facility] mellitus mellitus 6-04 Assessmen Summer es - 00:00: t & Plan: Medical 00 Continue Center tight blood glucose control. Rectal Rectal Disease Active [facility] bleeding bleeding 6-04 [facility] 00:[facility]: Medical 00 [place] Hematochez Problem Active 2017-02-01 emoria ia 4-06 05:42:45 l (finding) 00:00: Alejandro Hematochez 00 ia (finding) Active 07/26/2012 Problem 02/01/2017 Data migrated from [employer] on 09/18/14. [facility] OPID [facility] Internal Problem Active 2017-02-01 [facility] oria hemorrhoid 4-06 05:42:45 l s without Internal 00:00: Her dill complicati hemorrhoid 00 on s without (disorder) complicati on (disorder) Active 07/26/2012 Problem 02/01/2017 Data migrated from [employer] on 09/18/14. [facility] OPID [facility] Residual Problem Active 2017-02-01 [facility] oria hemorrhoid 4-06 05:42:45 l al skin Residual 00:00: Rut nn tags hemorrhoid 00 (disorder) al skin tags (disorder) Active 07/26/2012 Problem 02/01/2017 Data migrated from [employer] on 09/18/14. [facility], LORENZO [facility]cy d Cirrhosis Problem Active 2017-02-01 Me moria of liver 4-04 05:42:45 l (disorder) 00:00: Elie n Cirrhosis 00 of liver (disorder) Active 07/24/2012 Problem 02/01/2017 Data migrated from [employer] on 09/18/14. [facility], OPINarayan [facility] Esophageal Problem Active 2017-02-01 M emoria varices 4-04 05:42:45 l (disorder) 00:00: Elie n Esophageal 00 varices (disorder) Active 07/24/2012 Problem 02/01/2017 Data migrated from [employer] on 09/18/14. [facility] LORENZO ornelas Portal Problem Active 2017-02-01 Memor ia hypertensi 4-04 05:42:45 l on Portal 00:00: Alejandro (disorder) hypertensi 00 on (disorder) Active 07/24/2012 Problem 02/01/2017 Data migrated from [employer] on 09/18/14. [facility] LORENZO ornelas Closed Closed Problem Active [facility] displaced displaced ity of fracture fracture [place] of second of second Phys ici metatarsal metatarsal an s bone of bone of left foot, left foot, initial initial encounter encounter Closed Closed Problem Active [facility] displaced displaced ity of fracture fracture [place] of third of third Physic i metatarsal metatarsal an s bone of bone of right right foot, foot, initial initial encounter encounter Closed Closed Problem Active Univers nondisplac nondisplac it y of ed ed [place] fracture fracture Physic i of fourth of fourth ans metatarsal metatarsal bone of bone of right right foot, foot, initial initial encounter encounter Closed Closed Problem Active Univers displaced displaced ity of [place] l fracture l fracture Ph ysici of left of left ans femur with femur with routine routine healing, healing, subsequent subsequent encounter encounter Weakness Weakness Problem Active Unive rs of left of left ity of hip hip [place] [facility] ans Anemia Problem Resolve 2017-02-01 Malick aurora (disorder) d 05:42:45 l Anemia Alej[place] (disorder) Resolved Problem 02/01/2017 [facility], OPID [facility], [place] Cirrhosis Problem Resolve 2017-02-01 M emoria - d 05:42:45 l non-alcoho Elie n lic Cirrhosis (disorder) - non-alcoho lic (disorder) Resolved Problem 02/01/2017 [facility], OPID [facility] narayan, [facility] DM II Problem Resolve 2017-02-01 Malick aurora [Diabetes d 05:42:45 l mellitus DM II [place] type [Diabetes II](Confir mellitus med) type II](Confir med) Resolved Problem 02/01/2017 [facility], LORENZO ornelas Hemorrhoid Problem Resolve 2017-02-01 Memoria s d 05:42:45 l (disorder) Elie n Hemorrhoid s (disorder) Resolved Problem 02/01/2017 [facility], LORENZO ornelas,[facility] Essential Problem Resolve 2017-02-01 M emoria hypertensi d 05:42:45 l on Alejandro (disorder) Essential hypertensi on (disorder) Resolved Problem 02/01/2017 [facility], LISSAD Shaniawoo narayan Malignant Problem Resolve 2017-02-01 M emoria neoplasm d 05:42:45 l of liver [place] (disorder) Malignant neoplasm of liver (disorder) Resolved Problem 02/01/2017 [facility], LISSAD Ashleyoo d Diverticul Problem Resolve 2013-02-17 Memoria um d 01:01:34 l (morpholog Elie n ic Diverticul abnormalit um y) (morpholog ic abnormalit y) Resolved Problem 02/17/2013 [facility] DM II Problem Resolve 2013-02-17 Malick aurora [Diabetes d 01:01:34 l mellitus DM II Alejandro type II] [Diabetes mellitus type II] Resolved Problem 02/17/2013 [facility] HTN Problem Resolve 2013-02-17 Malick aurora d 01:01:34 l HTN [place] Resolved Problem 02/17/2013 [facility] Cirrhosis Problem Resolve 2013-01-31 M emoria - d 01:54:30 l non-alcoho Elie n lic Cirrhosis - non-alcoho lic Resolved Problem 01/31/2013 [facility] Diverticul Problem Resolve 2013-01-31 Memoria osis d 01:54:30 l [place] Diverticul osis Resolved Problem 01/31/2013 [facility] Metatarsal Problem Active 2017-02-01 M emoria bone 05:42:45 l fracture [place] (disorder) Metatarsal bone fracture (disorder) Active Problem 02/01/2017 [facility], OPID [facility] GASTROINTE Diagnosis Active 2013-02-[address] HEMORR 12:27:[address] l NOS [place] [address] HEMORR NOS Active [facility] FRACTURE Diagnosis Active 2017-01-18 M emoria OF UNSP 21:59:00 l PART OF FRACTURE Rut nn NECK OF OF UNSP LEFT FE PART OF NECK OF LEFT FE Active [facility] Allergies, Adverse Reactions, Alerts Allergy Allergy Status Severity Reaction(s) Onset Inactive Treating Comm ents Source Name Type Date Date Clinician Adhesive Drug Active Rash [facility]12 [facility] Center Family History Family Member Diagnosis Comments Start Date Stop Date Source Natural brother Heart disease [facility] Natural father Heart disease [facility] Natural father Failure to thrive MD Galvez Natural mother Heart failure [facility] Natural mother COPD MD Tohmpson tena Social History Social Habit Start Date Stop Date Quantity Comments Source Sex Assigned At MD Izaguirre on Alcohol intake 2019-03-12 2019-03-12 Current MD Thomposn tena 00:00:00 00:00:00 non-drinker of alcohol (finding) Social History 2017-01-04 2017-01-04 [facility] 22:46:20 22:46:20 Smoking Status Start Date Stop Date Source Never smoker MD Galvez Medications Ordered Filled Start Stop Current Ordering Indication Dosage Frequency Signature Comments Components Source Medication Medication Date Date Medication? Clinician (SIG) Name Name insulin 2018-04 Yes type 2 50U Inject 50 aspart - diabetes Units Anderso protamine-i 18:54: mellitus under the n nsulin 30 skin twice aspart daily. (NovoLOG 70/30) 100 unit/mL (70-30) insulin pen Bifidobacte 2018-04 Yes 4mg Take 4 mg M D rium -22 by mouth Anderso infantis 18:53: daily. n (ALIGN 51 ORAL) cholecalcif 2018-04 Yes 1000U Take 1,000 MD don, 1-22 Units by Anderso vitamin D3, 18:53: mouth n 1,000 units 51 daily. tablet ezetimibe 2018-04 Yes 10mg Take 10 mg MD (ZETIA) 10 -22 by mouth Lm so mg tablet 18:53: daily. n 51 furosemide 2018-04 Yes 20mg 20 mg. MD (LASIX) 20 -22 Anderso mg tablet 18:53: n 51 ferrous 2018-04 Yes 325mg 325 mg. MD sulfate 325 - Anderso mg (65 mg 18:53: n elemental 51 iron per tablet) tablet FAMOTIDINE 2018-04 Yes 40mg Take 40 mg M D ORAL 22 by mouth Anderso 18:53: every n 51 evening. omega-3 2018-04 Yes 1g 1 g twice MD acid ethyl -22 daily. Anderso esters 18:53: n (LOVAZA) 1 51 g capsule pregabalin 2018-04 Yes 100mg Take 100 MD (LYRICA) 1-22 mg by Anderso 100 mg 18:53: mouth at n capsule 51 bedtime. propranolol 2018-04 Yes 40mg 40 mg MD (INDERAL) -22 twice Anderso 40 mg 18:53: daily. n tablet 51 spironolact 2018-04 Yes 50mg Take 50 mg MD one -22 by mouth Anderso (ALDACTONE) 18:53: daily. n 50 mg 51 tablet vitamin E 2018-04 Yes 400U Take 400 MD 400 units -22 Units by Dmitriy o capsule 18:53: mouth n 51 daily. multivit-mi 2018-04 Yes 1{tbl} Take 1 MD n/iron/foli -22 tablet by And erso c/lutein 18:53: mouth n (CENTRUM 51 daily. SILVER WOMEN ORAL) diazePAM Yes Other 2.5mg Take 0.5 MD (VALIUM) 5 9-16 specified tablets A nderso mg tablet 00:00: anxiety (2.5 mg) n 00 disorders by mouth once as needed (prior to MRI) for up to 1 dose. methocarbam 2019- No 500mg Take 500 MD ol 8-30 08-30 mg by Anderso (ROBAXIN) 17:52: 00:00 mouth n 500 mg 29 :00 every 8 tablet (eight) hours as needed for muscle spasms. traMADol Yes Cholangioca 50mg Take 1 MD (ULTRAM) 50 8-30 rcinoma tablet (50 Anderso mg tablet 00:00: mg) by n 00 mouth every 6 (six) hours as needed for moderate pain or severe pain. multivitami 2018- No Chew. n-iron-mine 12-08 Anderso rals-folic 17:58: 00:00 n acid 47 :00 chewable tablet 3,500 units-18 mg-0.4 mg insulin 2018- No 65U 65 Units. aspart 12-08 Anderso U-100 17:56: 00:00 n (NovoLOG) 34 :00 100 unit/mL insulin pen calcium 2018- No 1{tbl} Take 1 MD carbonate-v 12-08 tablet by An derso itamin D3 17:55: 00:00 mouth. n ([id number] 43 :00 0+D) 1,500 mg - 400 units (600 mg elemental calcium per tablet) per tablet traMADol 2018- No Cancer of 50mg Take 1 M D (ULTRAM) 50 - 08-22 liver tablet (50 Anderso mg tablet 00:00: 00:00 mg) by n 00 :00 mouth every 8 hours as needed for moderate pain. diazePAM 2018- No Other 2.5mg Take 0.5 MD (VALIUM) 5 5-23 09-16 specified tablets Anderso mg tablet 00:00: 00:00 anxiety (2.5 mg) n 00 :00 disorders by mouth once as needed (prior to MRI) for up to 1 dose. blood sugar Yes MD diagnostic 3-17 Anderso (ONETOUCH 00:00: n ULTRA TEST) 00 strp TRADJENTA 5 2016-04 Yes TAKE 1 MD mg tab 0-06 TABLET BY Anderso 00:00: MOUTH n 00 DAILY tramadol Yes 50 mg = 1 Malick aurora hydrochlori 9-22 tab, PO, l de 50 MG 16:34: Q6H, PRN Rut nn Oral Tablet 00 Pain Score 6-10, X 5 day, # 20 tab, 0 Refill(s) enoxaparin Yes 30 mg = Malick aurora 30 mg/0.3 01-11 0.3 mL, l mL 16:34: SUB-Q, [place] subcutaneou 00 [id number], s solution Stop date is 01/26/17, 0 Refill(s) Ergocalcife Yes 50,000 Malick aurora rol 92000 01-11 IntlUnit = l UNT Oral 16:34: 1 cap, PO, Her dill Capsule 00 Q7D, 0 Refill(s) Lactulose Yes 20 gm = 30 Me moria 667 MG/ML 01-11 mL, PO, l Oral 16:34: TID, PRN [place] Solution 00 Other -See Comment, 0 Refill(s) Monobasic No Notes: Memori a potassium - (Same as: l phosphate 22:00: Phos-NaK) Her dill 155 MG / 00 Each 1.5 Sodium gm pkt has Phosphate, 250mg Monobasic phosphorou 350 MG Oral s. Mix Tablet w/2.5oz water and stir. Lactulose No Notes: Memori a 667 MG/ML 01-10 (Same l Oral 21:47: as:Chronul Alejandro Solution 00 ac) potassium No Notes: Memori a phosphate-s - (Same as: l odium 19:00: Phos-NaK) [place] phosphate 00 Each 1.5 155 mg-350 gm pkt has mg oral 250mg tablet phosphorou s. Mix w/2.5oz water and stir. Monobasic No Notes: Memori a potassium - (Same as: l phosphate 17:57: Phos-NaK) Her dill 155 MG / 00 Each 1.5 Sodium gm pkt has Phosphate, 250mg Monobasic phosphorou 350 MG Oral s. Mix Tablet w/2.5oz water and stir. Lovenox No Notes: Memoria -20 (Same as: l 17:00: Lovenox) Alejandro 00 Magnesium No Notes: Memori a Sulfate 01-09 WASTE: F/P l 16:47: - Sink; E [place] 00 - Municipal Trash Bin influenza No Notes: Memori a virus - (Same as: l vaccine, 14:00: Fluzone Elie n inactivated 00 Quadrivale nt, Fluarix Quadrivale nt) For 3 years of age and older (0.5 mL IM) Shake well before use cyclobenzap No Notes: Malick aurora rine 01-09 (Same As: l 02:32: Flexeril) Alejandro 00 Ergocalcife No Notes: Malick aurora rol 25525 01-08 (Same as: l UNT Oral 21:00: Vitamin D) Her dill Capsule 00 "Do Not Crush" Calcium No Notes: Memoria Carbonate 01-07 (calcium l 1250 MG / 22:00: carbonate- He rm Cholecalcif 00 vit D don 400 500mg-400u UNT nit TAB) Chewable Same as: Tablet Oyster-D, OsCal-D Baclofen No Notes: 5 Memor ia 9-17 mg =1/2 of l 22:00: 10 mg Tab (Same As: Lioresal) Cefazolin No Notes: Memori a 01-05 (Same As: l 21:00: Ancef, Alejandro 00 Kefzol) Cefazolin FOR IV SET ONLY MEDICATION WASTE Product Size: 1000 mg Product Wasted: ___ mg ondansetron No Route: IV, Memoria (ANES) 01-05 Drug form: l 15:33: INJ, ONCE, Stop date: 01/05/17 10:33:00 CDT glycopyrrol No Route: IV, Memoria ate (ANES) 01-05 Drug form: l 15:33: INJ, ONCE, Stop date: 01/05/17 10:33:00 CDT neostigmine No Route: IV, Memoria (ANES) 01-05 Drug form: l 15:33: INJ, ONCE, Stop date: 01/05/17 10:33:00 CDT calcium No Route: IV, Malick aurora chloride 01-05 Drug form: l (ANES) 15:33: INJ, ONCE, Rut Stop date: 01/05/17 10:33:00 CDT dexamethaso No Route: IV, Memoria ne (ANES) -16 Drug form: l 15:02: INJ, ONCE, Alejandro Stop date: 01/05/17 10:02:00 CDT esmolol No Route: IV, Malick aurora (ANES) -16 Drug form: l 14:07: INJ, ONCE, Alejandro 00 Stop date: 01/05/17 9:07:00 CDT famotidine No Route: IV, M emoria (ANES) 16 Drug form: l 14:07: INJ, ONCE, Alejandro 00 Stop date: 01/05/17 9:07:00 CDT ferrous No Notes: Memoria sulfate 325 -16 Give with l MG Oral 14:00: food. "Do Herm bridgette Tablet 00 Not Crush" [Feosol] Furosemide No Notes: Memor ia 20 MG Oral -16 (Same as: l Tablet 14:00: Lasix) [place] [Lasix] 00 May cause GI upset. Give with food or milk. Zetia No Notes: Memoria 9-16 (Same as: l 14:00: Zetia) Cholecalcif No Notes: Malick aurora don -16 Same as : l 14:00: Vitamin D3 Alejandro 00 Streptococc No Notes: Malick aurora us 9-16 Shake well l pneumoniae 14:00: prior to Her dill serotype 1 00 use (Same capsular as: antigen Prevnar diphtheria 13) [id number] protein conjugate vaccine / Streptococc us pneumoniae serotype 14 capsular antigen diphtheria [id number] protein conjugate vaccine / Streptococc us pneumoniae serotype 18C capsular antigen d Spironolact No Notes: Malick aurora one -16 (Same As: l 14:00: Aldactone) senna 8.6 No Notes: Memori a mg oral 9-16 (Same as: l tablet 14:00: Senokot) Protonix No Notes: Memoria 9-16 Tablet l 14:00: should not [place] 00 be chewed or crushed. (Same as: Protonix) phenylephri No Route: IV, Memoria ne (ANES) -16 Drug form: l 13:52: INJ, ONCE, Stop date: 01/05/17 8:52:00 CDT lidocaine No Route: IV, Me moria (ANES) 01-05 Drug form: l 13:47: INJ, ONCE, Stop date: 01/05/17 8:47:00 CDT propofol No Route: IV, Mem oria (ANES) 01-05 Drug form: l 13:47: INJ, ONCE, Stop date: 01/05/17 8:47:00 CDT rocuronium No Route: IV, M emoria (ANES) 01-05 Drug form: l 13:47: INJ, ONCE, Stop date: 01/05/17 8:47:00 CDT ondansetron No Route: IV, Memoria (ANES) 01-05 Drug form: l 13:47: INJ, ONCE, Stop date: 01/05/17 8:47:00 CDT ceFAZolin No Route: IV, Me moria (ANES) 01-05 Drug form: l 13:47: INJ, ONCE, Stop date: 01/05/17 8:47:00 CDT fentaNYL No Route: IV, Mem oria (ANES) 01-05 Drug form: l 13:47: INJ, ONCE, Stop date: 01/05/17 8:47:00 CDT Insulin No 2 unit, Memoria regular 01-05 Route: l 13:40: SUB-Q, Sliding Scale, Dosing Weight 81.818, kg, PRN Blood Glucose Results, Start date: 01/05/17 8:40:00 CDT, Duration: 30 day, Stop date: 02/04/17 8:39:00 CDT Ondansetron 0 No 4 mg, Memor ia 01-05 Route: l 13:40: IVP, ONCE, Dosing Weight 81.818, kg, PRN Nausea & Vomiting, Start date: 01/05/17 8:40:00 CDT Hydromorpho No 0.5 mg, Mem oria ne 01-05 Route: l 13:40: IVP, Alejandro 00 Q5Min, Dosing Weight 81.818, kg, PRN Pain Score 7-10, Start date: 01/05/17 8:40:00 CDT, Duration: 4 doses or times, Stop date: Limited # of times Naloxone 2017-0 No 0.4 mg, Memori a 9-16 Route: l 13:40: IVP, Alejandro 00 Q2MIN, Dosing Weight 81.818, kg, PRN Narcotic Reversal, Start date: 01/05/17 8:40:00 CDT, Duration: 8 doses or times, Stop date: Limited # of times Sodium 2017-0 No 1,000 mL, Memori a Chloride 16 Rate: 50 l 0.9% IV 13:40: ml/hr, [place] 1,000 mL 00 Infuse over: 20 hr, Route: IV, Dosing Weight 81.818 kg, Total Volume: 1,000, Start date: 01/05/17 8:40:00 CDT, Duration: 30 day, Stop date: 02/04/17 8:39:00 CDT Labetalol 2017-0 No 10 mg, Memori a -16 Route: l 13:40: IVP, Alejandro 00 Q5Min, Dosing Weight 81.818, kg, PRN Elevated BP, Start date: 01/05/17 8:40:00 CDT, Duration: 5 doses or times, Stop date: Limited # of times Hydralazine 2017-0 No 10 mg, Malick aurora 16 Route: l 13:40: IVP, [place] 00 Q20Min, Dosing Weight 81.818, kg, PRN Elevated BP, Start date: 01/05/17 8:40:00 CDT, Duration: 2 doses or times, Stop date: Limited # of times sodium 2017-0 No Route: IV, Memor ia chloride -16 Total l 0.9% 1000 12:45: Volume: Rut nn ml INJ 00 1,000, (ANES) Start date: 01/05/17 7:45:00 CDT, Stop date: 01/05/17 8:45:00 CDT Thyroxine 2017-0 No Notes: Memori a 9-16 Take 1 l 11:30: hour Alejandro 00 before or 2 hours after meal; Enteral feeds may interefere with the absorption of this medication .(Same as:Levothr oid, Synthroid) Lovenox No Notes: Memoria 9-16 (Same as: l 00:00: Lovenox) Alejandro Humalog Mix No Notes: Malick aurora 75/25 9-15 (Same as: l 22:57: Humalog [place] 00 Mix) WASTE: F/P - Black; E - Municipal Trash Bin Docusate No Notes: Memoria 9-15 (Same as: l 22:00: Colace) Alejandro (Do Not Crush) Propranolol No Notes: Malick aurora 9-15 Give with l 22:00: food. [place] (Same as: Inderal) Miralax No Notes: Memoria 9-15 Dissolve l 22:00: in 8 oz of [place] 00 water or juice. (Same as: Miralax) [place]-3 No Notes: Memoria Acid Ethyl 9-15 (Same as: l Esters 22:00: MaxEPAAlejandro (FPC) 1000 00 [place] 3 MG Oral fish oil ) Capsule [Lovaza] Non-Formul josy Drug NovoLOG No 55 unit, Memori a 70/30 15 Route: l 21:30: SUB-Q, [place] BID-Before Meals, Dosing Weight 81.818, kg, Start date: 01/04/17 16:30:00 CDT, Duration: 30 day, Stop date: 02/03/17 7:30:00 CDT Humalog Mix No Notes: Malick aurora 75/25 9-15 (Same as: l 21:30: Humalog Alejandro 00 ) WASTE: F/P - Black; E - Municipal Trash Bin Lyrica No Notes: Memoria 9-15 (Same as: l 18:00: Lyrica) [place] 00 Insulin No 60 Memoria Lispro 9-15 units) l 16:51: WASTE: F/P [place] 00 - Black; E - Municipal Trash Bin Stable for 28 days at room temperatur e. Expires in days from ____Date Dextrose No 25 gm, 50 Malick aurora 50% Syringe 9-15 mL, Route: l 16:51: IVP, Drug Alejandro 00 Form: INJ, Dosing Weight 81.818, kg, PRN, PRN Blood Glucose Results, Start date: 01/04/17 11:51:00 CDT, Duration: 30 day, Stop date: 02/03/17 11:50:00 CDT Glucagon No 1 mg, Memoria 15 Route: IM, l 16:51: Drug form: Alejandro 00 PDR/INJ, PRN, Dosing Weight 81.818, kg, PRN Blood Glucose Results, Start date: 01/04/17 11:51:00 CDT, Duration: 30 day, Stop date: 02/03/17 11:50:00 CDT Oxycodone No Notes: Memori a Hydrochlori 15 (Same as: l de 5 MG 16:48: Roxicodone Herm bridgette Oral Tablet 00 ) Lactulose No Notes: Memori a 667 MG/ML 01-04 (Same l Oral 16:46: as:Chronul [place] Solution 00 ac) Furosemide Yes 20 mg = 1 Me moria 20 MG Oral 9-15 tab, PO, l Tablet 16:41: Daily, # Alejandro [Lasix] 00 30 tab, 0 Refill(s) Linagliptin Yes 5 mg = 1 Me moria 5 MG Oral 9-15 tab, PO, l Tablet 16:41: Daily, # Alejandro [Tradjenta] 00 30 tab, 3 Refill(s) lactulose No = 1 Pack, Mem oria 20 g oral 9-15 PO, BID, # l powder 16:41: 20 gm, 0 [place] 00 Refill(s) Lovaza No 1,000 mg Memoria 9-15 =, PO, l 16:41: BID, 0 [place] 00 Refill(s) NovoLOG Yes 55 unit, Memori a 70/30 9-15 SUB-Q, l 16:41: BID-Before [place] 00 Meals, 0 Refill(s) spironolact Yes 25 mg = 1 M emoria one 25 mg 9-15 tab, PO, l oral tablet 16:41: Daily, # Mike rmann 00 30 tab, 3 Refill(s) Cholecalcif No 1,000 Memor ia don 9-15 IntlUnit, l 16:41: PO, Daily, [place] 00 0 Refill(s) pantoprazol Yes 40 mg = 1 M emoria e 40 MG -15 tab, PO, l Enteric 16:41: Daily, # Elie n Coated 00 30 tab, 0 Tablet Refill(s) [Protonix] Saline No Notes: Memoria Flush 0.9% 01-04 Same as: l 16:39: BD Alejandro 00 Posiflush Sterile sodium No 1,000 mL, Memori a chloride 01-04 Rate: 75 l 0.9% 1000 16:39: ml/hr, Elie n ml INJ 00 Infuse 1,000 mL over: 13.3 hr, Route: IV, Dosing Weight 81.818 kg, Total Volume: 1,000, Start date: 01/04/17 11:39:00 CDT, Duration: 30 day, Stop date: 02/03/17 11:38:00 CDT Morphine No Notes: Memoria 01-04 (Same l 16:39: as:MORPhin Alejandro 00 e Sulfate) Ondansetron No Notes: Malick aurora 01-04 (Same as: l 16:39: Zofran) 00 MEDICATION WASTE Product Size: 4 mg Product Wasted: ___ mg Ondansetron No Notes: Malick aurora 01-04 (Same as: l 10:13: Zofran) Alejandro 00 MEDICATION WASTE Product Size: 4 mg Product Wasted: ___ mg Morphine No Notes: Memoria 01-04 (Same l 10:13: as:MORPhin [place] 00 e Sulfate) insulin Yes 60U [facility]ject [facility] aspart [facility] - (NOVOLOG) 06:28: subcutaneo Me dical 100 unit/mL 45 usly 2 Center InPn (two) times daily before meals . traMADol 2019- No pain 50mg Take 50 mg MD (ULTRAM) 50 13 08-30 by mouth And erso mg tablet 00:00: 00:00 every 8 n 00 :00 (eight) hours as needed. cholecalcif Yes 1000U QD Take 1,[address] [facility] don 3-07 Units by [facility] - (VITAMIN 14:16: mouth Medical D3) 1,000 00 daily. Center unit tablet FAMOTIDINE 2015-04 Yes 40mg Take [address] ORAL 2-19 by mouth [facility] - 11:53: once . Medical 42 Center pregabalin 2015-04 Yes 100mg Q.5D Take [address] (LYRICA) 75 2-15 mg by [facility] - MG capsule 15:37: mouth 2 Medi stephenie 35 (two) Center times daily . lactulose 2015-04 Yes 20g Q.5D Take [address] [facility] (CHRONULAC) 2-10 by mouth 2 Cristine kes - 20 gram/30 00:00: (two) Medica l mL solution 00 times Center daily Take 20mg by mouth 2 to 3 times daily as needed . propranolol 2014- Yes 40mg Q.5D Take [address] [facility] (INDERAL) 3-26 by mouth 2 [facility] - 40 MG 16:05: (two) Medical tablet 48 times Center daily. BIFIDOBACTE Yes 4mg QD Take [address] RIUM 3-26 by mouth [facility] - INFANTIS 16:05: daily. Medical (ALIGN 48 Center ORAL) omega-3 2014- Yes 1g Q.5D Take [address] [facility] acid ethyl 3-26 by mouth 2 Summer es - esters 16:05: (two) Medical (LOVAZA) 1 48 times Center gram daily. capsule spironolact Yes 50mg QD Take [address] [facility] one 3-26 by mouth [facility] - (ALDACTONE) 16:05: daily. Medi stephenie 50 MG 48 Center tablet ezetimibe Yes 10mg QD Take [address] [facility] [address] [facility] (ZETIA) 10 3-26 by mouth [facility] - mg tablet 16:05: daily. Medica l 48 Center furosemide 0 Yes 20mg QD Take [address] (LASIX) 20 3-26 by mouth [facility] - MG tablet 16:05: daily. Medica l 48 Center levothyroxi 0 Yes 50ug QD Take [address] [facility] ne 1-22 tablet (50 [facility] - (SYNTHROID, 00:00: mcg total) Medical LEVOTHROID) 00 by mouth Cent er 50 MCG daily. tablet levothyroxi Yes 50ug Take 50 MD ne 1-22 mcg by Anderso (SYNTHROID, 00:00: mouth n LEVOTHROID) 00 daily. 50 mcg tablet ferrous Yes 325mg Take 325 [facility] sulfate 325 1-20 mg by [facility] - (65 FE) MG 11:19: mouth Medica l tablet 12 daily with Center breakfast. Lasix 20 mg 2012-04 Yes Leeroy 20 mg, 1 Me moria oral tablet 0-22 [place] tab, PO, l 14:24: Daily, 30 Alejandro 17 tab, Substituti on Allowed, TAB pantoprazol 2012-04 Yes Leeroy 40 mg, 1 Me moria e 40 mg 0-22 [place] tab, PO, l oral 14:24: Q12H, 60 [place] enteric 03 tab, coated Substituti tablet on Allowed, ECTAB benzonatate 2012-04 Yes Leeroy 100 mg, 1 M emoria 100 mg oral 0-22 [place] cap, PO, l capsule 14:23: TID, PRN, Rut nn 43 30 cap, Cough, Substituti on Allowed, CAP Lasix 40 mg 2012-04 No Leeroy 40 mg, 1 Me moria oral tablet 0-22 [place] tab, l 14:00: Route: PO, [place] 00 Drug form: TAB, Daily, Dosing Weight 84.3, kg, Start date: 02/10/13 9:00:00, Duration: 30 day, Stop date: 03/11/13 9:00:00( me as: Lasix) May cause GI upset. Give with food or milk. Tessalon 2012-04 No Leeroy 100 mg, 1 Malick aurora Perles 0-22 [place] cap, l 04:03: Route: PO, [place] 00 Drug form: CAP, TID, Dosing Weight 84.3, kg, PRN Cough, Start date: 02/09/13 23:03:00, Duration: 30 day, Stop date: 03/11/13 23:02:00(S rosey As: Tessalon Perles) "Do Not Crush" spironolact 2012-04 No Leeroy 50 mg, 2 Me moria one 0-21 [place] tab, l 22:00: Route: PO, [place] Drug form: TAB, BID, Dosing Weight 84.3, kg, Start date: 02/09/13 17:00:00, Duration: 30 day, Stop date: 03/11/13 9:00:00([facility] As: Aldactone) Protonix 2012-04 No Leeroy 40 mg, 1 Memor ia 0-21 [place] tab, l 02:00: Route: PO, Alejandro Drug form: ECTAB, Q12H, Dosing Weight 84.3, kg, Start date: 02/08/13 21:00:00, Stop date: 03/10/13 9:00:00Tab let should not be chewed or crushed. (Same as: Protonix) Anusol-HC 2012-04 No Theodoros 1 appl, Memoria 2.5% rectal 0-20 Voloyianni Route: [place], l cream with 22:00: s BID, Drug He rmann applicator 00 form: CRM, Start date: 02/08/13 17:00:00, Duration: 30 day, Stop date: 03/10/13 9:00:00 HC 2012-04 Yes Theodoros 1 appl, Memor ia Pramoxine 0-20 Voloyianni TOP, TID, l 2.5%-1% 19:01: s 28 gm, [place] topical 21 Substituti cream on Allowed, Maintenanc e, CRM nitroglycer 2012-04 No Leeroy 0.4 mg, 1 M emoria in 0.4 mg 0-20 [place] tab, l sublingual 14:05: Route: SL, H ermann tablet Drug form: TAB, Q5Min, PRN Chest Pain, Start date: 02/08/13 9:05:00, Duration: 30 day, Stop date: 03/10/13 8:04:00( me as:Nitroqu ick, Nitrostat) "Do Not Crush" Sublingual tablet atropine 2012-04 No Leeroy 0.5 mg, 5 Malick aurora 0-20 [place] mL, Route: l 14:05: IVP, Drug [place] 00 form: INJ, PRN, PRN Bradycardi a, Start date: 02/08/13 9:05:00, Duration: 30 day, Stop date: 03/10/13 8:04:00 Sodium 2012-04 No Mary Velasco 1,000 mL, Malick aurora Chloride 0-18 Maxian Rate: 25 l 0.9% IV 19:38: ml/hr, Alejandro 1,000 mL 00 Infuse over: 40 hr, Route: IV, Dosing Weight 84.3 kg, Total Volume: 1,000, Start date: 02/06/13 14:38:00, Duration: 1 day, Stop date: 02/07/13 14:37:00 Lidocaine 2012-04 No Blaise 15 ml, Malick aurora Viscous 2% 0-18 Arreguin Route: PO, l mucous 16:31: Kafrouni Q3H, Drug He rmann membrane 00 form: solution SOLN, PRN Other -See Comment, Start date: 02/06/13 11:31:00, Duration: 30 day, Stop date: 03/08/13 11:30:00, post banding chest pain(Same as: Xylocaine Viscous) levothyroxi 2012-04 No Leeroy 50 Memori a ne 0-18 [place] microgram, l 11:00: 1 tab, Alejandro 00 Route: PO, Drug form: TAB, Q6AM, Dosing Weight 84.3, kg, Start date: 02/06/13 6:00:00, Duration: 30 day, Stop date: 03/07/13 6:00:00Tak e 1 hour before or 2 hours after meal; Enteral feeds may interefere with the absorption of this medication .(Same as:Levothr oid, Synthroid) Sodium 2012-04 No Leeroy 250 mL, Memoria Chloride 0-17 [place] Rate: 30 l 0.9% IV 250 15:43: ml/hr, Herm bridgette mL 00 Infuse over: 8.3 hr, Route: IV, Dosing Weight 84.3 kg, Total Volume: 250, Start date: 02/05/13 10:43:00, Duration: 12 hr, Stop date: 02/05/13 22:42:00 Evista 2012-04 Yes 60 mg, PO, Memor ia 0-17 Daily, l 14:50: Substituti Alejandro 10 on Allowed Evista 2012-04 No Leeroy 60 mg, 1 Memoria 0-17 [place] tab, l 14:00: Route: PO, Alejandro 00 Drug form: TAB, Daily, Dosing Weight 84.3, kg, Start date: 02/05/13 9:00:00, Duration: 30 day, Stop date: 03/06/13 9:00:00(Sa me as:Evista) "Do Not Crush" propranolol 2012-04 No Leeroy 40 mg, 1 Me moria 0-17 [place] tab, l 14:00: Route: PO, Drug form: TAB, BID, Dosing Weight 84.3, kg, Start date: 02/05/13 9:00:00, Duration: 30 day, Stop date: 03/06/13 21:00:00Gi ve with food. (Same as: Inderal) Lyrica 2012-04 No Leeroy 75 mg, 1 Memoria 0-17 [place] cap, l 14:00: Route: PO, Drug form: CAP, Q8H, Dosing Weight 84.3, kg, Start date: 02/05/13 9:00:00, Duration: 30 day, Stop date: 03/07/13 8:00:00(Sa me as: Lyrica) Zetia 2012-04 No Leeroy 10 mg, 1 Memoria 0-17 [place] tab, l 14:00: Route: PO, Drug form: TAB, Daily, Dosing Weight 84.3, kg, Start date: 02/05/13 9:00:00, Duration: 30 day, Stop date: 03/06/13 9:00:00(Sa me as: Zetia) Saline 2012-04 No Leeroy 5 ml, Memoria Flush 0.9% 0-17 [place] Route: l 05:57: IVP, Drug Form: INJ, Dosing Weight 79.545, kg, PRN, PRN Line Flush, Start date: 02/05/13 0:57:00, Duration: 30 day, Stop date: 03/06/13 23:56:00(S rosey as: BD Posiflush) Sodium 2012-04 No Leeroy 1,000 mL, Memori a Chloride 0-17 [place] Rate: 125 l 0.9% IV 05:57: ml/hr, Alejandro 1,000 mL 00 Infuse over: 8 hr, Route: IV, Dosing Weight 79.545 kg, Total Volume: 1,000, Start date: 02/05/13 0:57:00, Duration: 30 day, Stop date: 03/07/13 0:56:00 octreotide 2012-04 No Leeroy 50 Memoria 0-17 [place] microgram, l 05:57: Route: [place] 00 IVP, ONCE, Dosing Weight 79.545, kg, Start date: 02/05/13 0:57:00, Duration: 1 doses or times, Stop date: 02/05/13 0:57:00 pantoprazol 2012-04 No Leeroy 80 mg, Malick aurora e 0-17 [place] Route: l 05:57: IVP, ONCE, Alejandro 00 Dosing Weight 79.545, kg, for loading dose, Start date: 02/05/13 0:57:00, Duration: 1 doses or times, Stop date: 02/05/13 0:57:00 pantoprazol 2012-04 No Leeroy 100 mL, Mem oria e 80 mg + 0-17 [place] Rate: 10 l Sodium 05:57: ml/hr, Alejandro Chloride 00 Infuse 0.9% IV 100 over: 10 mL hr, Route: IV, Dosing Weight 79.545 kg, Total Volume: 100, Start date: 02/05/13 0:57:00, Duration: 30 day, Stop date: 03/07/13 0:56:00 octreotide 2012-04 No Leeroy 248.75 mL, M emoria 1,250 0-17 [place] Rate: 10 l microgram + 05:57: ml/hr, Herm bridgette Sodium 00 Infuse Chloride over: 25 0.9% IV hr, Route: 248.75 mL IV, Dosing Weight 79.545 kg, Total Volume: 250, Start date: 02/05/13 0:57:00, Duration: 30 day, Stop date: 03/07/13 0:56:00, Infuse at 50 mcg/hr. Final concentrat ion = 50 mcg/10 mLInfuse at 50 mcg/hr. Final concentrat ion = 50 mcg/10 mL insulin 2012-04 No Leeroy 10 unit, Memori a aspart 0-17 [place] 0.1 mL, l 05:57: Route: [place] 00 SUB-Q, Drug form: SOLN, Sliding Scale, Dosing Weight 79.545, kg, PRN Blood Glucose Results, Start date: 02/05/13 0:57:00, Duration: 30 day, Stop date: 03/06/13 23:56:00Ro ll in palms of hands gently; Do not shake vigorously . (Same as: NovoLog) "single patient use only" Stable for 28 days at room temperatur e. Expires in days from ____Date Dextrose 2012-04 No Leeroy 12.5 gm, Memor ia 50% Syringe 0-17 [place] 25 mL, l 05:57: Route: Alejandro 00 IVP, Drug Form: INJ, Dosing Weight 79.545, kg, PRN, PRN Blood Glucose Results, Start date: 02/05/13 0:57:00, Duration: 30 day, Stop date: 03/06/13 23:56:00 glucagon 2012-04 No Leeroy 1 mg, Memoria 0-17 [place] Route: IM, l 05:57: Drug form: [place] 00 PDR/INJ, PRN, Dosing Weight 79.545, kg, PRN Blood Glucose Results, Start date: 02/05/13 0:57:00, Duration: 30 day, Stop date: 03/06/13 23:56:00 Protonix 2012-04 No Pedrito 80 mg, Malick aurora 0-17 [place] Route: l 04:43: IVP, Drug form: INJ, ONCE, Start date: 02/04/13 23:43:00, Stop date: 02/04/13 23:43:00Fo r IV push reconstitu te with 10 ml 0.9% sodium chloride and push over 2 minutes. (Same as: Protonix) pantoprazol 2012-04 No Pedrito 100 mL, Memoria e 80 mg + 0-17 [place] Rate: 10 l Sodium 04:35: ml/hr, [place] Chloride 00 Infuse 0.9% IV 100 over: 10 mL hr, Route: IVPB, Dosing Weight 79.545 kg, Total Volume: 100, Infuse at 8 mg / hr for 72 hours for GI bleeding, Start date: 02/04/13 23:35:00, Duration: 72 hr, Stop date: 02/07/13 23:34:00 Sodium 2012-04 No Pedrito 20 mL, Memori a Chloride 0-17 [place] Rate: 240 l 0.9% 04:35: ml/hr, [place] (Bolus) IV 00 Infuse 20 mL + over: 5 pantoprazol minutes, e 80 mg Route: IVP, Dosing Weight 79.545 kg, Total Volume: 20, Start date: 02/04/13 23:35:00, Duration: 1 doses or times, Stop date: 02/04/13 23:39:00 octreotide 2012-04 No Pedrito 248.75 mL, Memoria 1,250 0-17 [place] Rate: 10 l microgram + 04:34: ml/hr, Herm bridgette Sodium 00 Infuse Chloride over: 25 0.9% IV hr, Route: 248.75 mL IV, Dosing Weight 79.545 kg, Total Volume: 250, Start date: 02/04/13 23:34:00, Duration: 30 day, Stop date: 03/06/13 23:33:00 Octreotide 2012-04 No Pedrito 50 Malick aurora (bolus) 0-17 [place] microgram, l 04:34: 0.5 mL, [place] 00 Route: IVP, Drug form: INJ, ONCE, Dosing Weight 79.545, kg, Start date: 02/04/13 23:34:00, Duration: 1 doses or times, Stop date: 02/04/13 23:34:00(S rosey As: Sandostati n). Refrigerat e. Centrum 2012-04 Yes 1 tab, PO, Malick aurora Silver oral 0-17 Daily, 30 l tablet 00:55: tab, Alejandro 38 Substituti on Allowed, Maintenanc e, TAB Align 2012-04 Yes 4 mg, Memoria 0-17 Daily, l 00:55: Substituti [place] 11 on Allowed pantoprazol 2012-04 No Pedrito 40 mg, M emoria e 0-17 [place] Route: l 00:51: IVP, ONCE, Dosing Weight 79.545, kg, For IV push reconstitu te with 10 ml 0.9% sodium chloride and push over at least 3 minutes, Priority: STAT, Start date: 02/04/13 19:51:00, Stop date: 02/04/13 19:51:00 Saline 2012-04 No Pedrito 5 mL, Memoria Flush 0.9% 0-17 [place] Route: l 00:51: IVP, Drug Form: INJ, Dosing Weight 79.545, kg, PRN, PRN Line Flush, Start date: 02/04/13 19:51:00, Duration: 24 hr, Stop date: 02/05/13 19:50:00(S rosey as: BD Posiflush) sitagliptin 2012-04 No Enayet 50 mg, 2 Memoria 0-08 Rahim tab, l 14:00: Route: PO, Drug form: TAB, BID, Dosing Weight 84.091, kg, Start date: 01/27/13 9:00:00, Duration: 30 day, Stop date: 02/25/13 17:00:00Sa me as Januvia metFORmin 2012-04 No Enayet 1,000 mg, M emoria 1000 mg 0-08 Rahim 2 tab, l oral tablet 14:00: Route: PO, Drug form: TAB, BID, Dosing Weight 84.091, kg, Start date: 01/27/13 9:00:00, Duration: 30 day, Stop date: 02/25/13 17:00:00(S rosey as: Glucophage ) Take with meal hydrocortis 2012-04 No Theodoros 1 appl, Memoria one-pramoxi 0-07 Voloyianni Route: PO, l ne topical 23:00: s BID, Drug He rmann 2.5%-1% 00 form: cream CRM/A, Start date: 01/26/13 18:00:00, Duration: 30 day, Stop date: 02/25/13 17:00:00(S rosey as: Analpram-H C 2.5) Non-formul josy drug. (hydrocort isone-pram oxine 2.5%-1% 30 gm rectal CRM) Analpram 2012-04 No Theodoros Route: Me moria Advanced 0-07 Voloyianni TOP, l with 22:00: s Dosing Alejandro cleansing 00 Weight wipes oral 84.091, and topical kg, BID, kit Start date: 01/26/13 17:00:00 Sodium 2012-04 No Lockwood Vu 1,000 mL, Malick aurora Chloride 0-07 Curt Rate: 25 l 0.9% IV 14:40: ml/hr, Alejandro 1,000 mL 00 Infuse over: 40 hr, Route: IV, Dosing Weight 84.091 kg, Total Volume: 1,000, Start date: 01/26/13 9:40:00, Duration: 1 day, Stop date: 01/27/13 9:39:00 GoLCARLTONLY 2012-04 No Reilly K 4,000 ml, Memoria 0-06 Jasmeet Route: PO, l 20:00: Drug Form: Alejandro PDR/REC, Dosing Weight 84.091, kg, ONCE, Start date: 01/25/13 15:00:00, Duration: 1 doses or times, Stop date: 01/25/13 15:00:00(p olyethylen e glycol electrolyt e solution 4 Liter bottle) (Same as: Paulina Thakkar) NS 2012-04 No Reilly K IV, 30 Memoria 0-06 Jasmeet ml/hr, l 16:50: PRN, PRN Blood Transfusio n, Start date: 01/25/13 11:50:00, Duration: 1, 250 ml Vitamin K1 2012-04 No Reilly K 10 mg, 1 Memoria 0-06 Jasmeet mL, Route: l 15:31: SUB-Q, [place] 00 Drug form: INJ, ONCE, Dosing Weight 84.091, kg, Start date: 01/25/13 10:31:00, Duration: 1 doses or times, Stop date: 01/25/13 10:31:00(S rosey as: Aqua-Mephy ton, Vitamin K) Zetia 2012-04 No Ashley N 10 mg, 1 Malick aurora 0-05 Ono[place] tab, l 14:00: Route: PO, [place] 00 Drug form: TAB, Daily, Dosing Weight 79.545, kg, Start date: 01/24/13 9:00:00, Duration: 30 day, Stop date: 02/22/13 9:00:00(Sa me as: Zetia) Evista 2012-04 No Ashley N 60 mg, 1 Mem oria 0-05 [place] tab, l 14:00: Route: PO, [place] 00 Drug form: TAB, Daily, Dosing Weight 79.545, kg, Start date: 01/24/13 9:00:00, Duration: 30 day, Stop date: 02/22/13 9:00:00(Sa me as:Evista) "Do Not Crush" propranolol 2012-04 No Ashley N 40 mg, 1 Memoria 0-05 [place] tab, l 14:00: Route: PO, [place] 00 Drug form: TAB, BID, Dosing Weight 79.545, kg, Start date: 01/24/13 9:00:00, Duration: 30 day, Stop date: 02/22/13 17:00:00Gi ve with food. (Same as: Inderal) influenza 2012-04 No SYSTEM 0.5 mL, Mem oria virus 0-05 SYSTEM Route: IM, l vaccine, 14:00: Drug Form: Her dill inactivated 00 SUSP, Start date: 01/24/13 9:00:00, Stop date: 01/24/13 9:00:00 Protonix 2012-04 No Enayet 40 mg, Memor ia 0-05 Rahim Route: IV, l 14:00: Drug form: [place] 00 INJ, Q12H, Dosing Weight 79.545, kg, Start date: 01/24/13 9:00:00, Duration: 30 day, Stop date: 02/22/13 21:00:00Fo r IV push reconstitu te with 10 ml 0.9% sodium chloride and push over 2 minutes. (Same as: Protonix) magnesium 2012-04 No Ashley N 2 gm, 50 Memoria sulfate 2 0-05 Ono[place] mL, Route: l gm in Water 11:37: IV, Drug He rmann 50 ml 00 form: INJ, ONCE, Dosing Weight 84.091, kg, Priority: Routine, Start date: 01/24/13 6:37:00, Stop date: 01/24/13 6:37:00 nitroglycer 2012-04 No Enayet 0.4 mg, 1 Memoria in 0.4 mg 0-05 Rahim tab, l sublingual 07:14: Route: SL, H ermann tablet 00 Drug form: TAB, Q5Min, PRN Chest Pain, Start date: 01/24/13 2:14:00, Duration: 30 day, Stop date: 02/23/13 1:13:00(Sa me as:Nitroqu ick, Nitrostat) "Do Not Crush" Sublingual tablet atropine 2012-04 No Enayet 0.5 mg, 5 Me moria 0-05 Rahim mL, Route: l 07:14: IVP, Drug [place] 00 form: INJ, PRN, PRN Bradycardi a, Start date: 01/24/13 2:14:00, Duration: 30 day, Stop date: 02/23/13 1:13:00 acetaminoph 2012-04 No Enayet 650 mg, M emoria en 0-05 Rahim 20.3 mL, l 06:09: Route: PO, [place] 00 Drug form: LIQ, Q4H, Dosing Weight 84.091, kg, PRN Pain 1-3/Temp > 100.4 F, Start date: 01/24/13 1:09:00, Duration: 30 day, Stop date: 02/23/13 1:08:00Max acetaminop hen = 4000mg/day (4 gm/day). (Same as: Tylenol) ondansetron 2012-04 No Enayet 4 mg, 2 M emoria 0-05 Rahim mL, Route: l 06:09: IVP, Drug Alejandro 00 form: INJ, Q8H, Dosing Weight 84.091, kg, PRN Nausea & Vomiting, Start date: 01/24/13 1:09:00, Duration: 30 day, Stop date: 02/23/13 1:08:00( me as: Zofran) Zetia 10 mg 2012-04 Yes Ashley N 10 mg, 1 Memoria oral tablet 0-05 [place] tab, PO, l 04:29: Daily, 30 [place] 30 tab, Substituti on Allowed, TAB Voltaren 2012-04 Yes 1 appl, Memori a Topical 1% 0-05 TOP, QID, l topical gel 04:29: 100 gm, Her dill 19 Substituti on Allowed, GEL propranolol 2012-04 Yes Ashley N 40 mg, 1 Memoria 40 mg oral 0-05 [place] tab, PO, l tablet 04:29: BID, 180 [place] 00 tab, Substituti on Allowed, TAB Metamucil 2012-04 Yes Substituti Me moria 0-05 on l 04:28: Allowed, Alejandro 44 Maintenanc e Lyrica 75 2012-04 Yes 75 mg, 1 Malick aurora mg oral 0-05 cap, PO, l capsule 04:28: TID, 90 Alejandro 32 cap, Substituti on Allowed, CAP Lovaza oral 2012-04 Yes 2,000 mg, M emoria capsule 0-05 2 cap, PO, l 04:28: BID, 120 Alejandro 15 cap, Substituti on Allowed, Maintenanc e, CAP Lidoderm 5% 2012-04 Yes Substituti Memoria topical 0-05 on Allowed l film 04:27: Alejandro (patch) 54 levothyroxi 2012-04 Yes 50 Memori a ne 50 mcg 0-05 microgram, l (0.05 mg) 04:27: 1 tab, PO, He rmann oral tablet 41 Daily, 30 tab, Substituti on Allowed, TAB Janumet 50 2012-04 Yes 1 tab, PO, M emoria mg/1000 mg 0-05 BID, 60 l oral tablet 04:27: tabElie n 20 Substituti on Allowed, Maintenanc e, TAB Feosol 325 2012-04 Yes 325 mg, Malick aurora mg oral 0-05 PO, Daily, l tablet 04:27: 30 tabAlejandro 05 Substituti on Allowed famotidine 2012-04 Yes 40 mg, PO, M emoria 0-05 BID, 60 l 04:26: tabAlejandro 34 Substituti on Allowed Evista 60 2012-04 Yes Ashley N 120 mg, 2 Memoria mg oral 0-05 [place] tab, PO, l tablet 04:25: Daily, 30 Elie n 27 tab, Substituti on Allowed, TAB Dexilant 60 2012-04 Yes 60 mg, 1 Me moria mg oral 0-05 cap, PO, l delayed 04:24: Substituti Herm bridgette release 23 on capsule Allowed, CAP Sodium 2012-04 No Shelise 250 mL, Memor ia Chloride 0-05 Brayan Rate: On l 0.9% 03:45: Rudi Call for Elie n (titrate) 00 use with 250 mL blood product administra tion., Dosing Weight 79.545, kg, Route: IV, Total Volume: 250, Priority: Routine, Duration: 30 day, Stop date: 02/22/13 22:44:00, Replace Every: 24 hr Sodium 2012-04 No Shelise 250 mL, Memor ia Chloride 0-05 Brayan Rate: On l 0.9% 01:52: Rudi call for Elie n (titrate) 00 use with 250 mL blood product administra tion, Dosing Weight 79.545, kg, Route: IV, Total Volume: 250, Duration: 30 day, Stop date: 02/22/13 20:51:00, Replace Every: 24 hr vitamin E Yes 400U QD Take [address] [facility] 400 UNIT 6-04 [facility] - capsule 15:32: mouth Medical 29 daily. Center traMADol Yes 50mg Take [address] [facility] (ULTRAM) 50 6-04 by mouth [facility] - mg tablet 15:32: every 6 Medic al 28 (six) Center hours as needed. Vital Signs Vital Name Observation Time Observation Value Comments Source Systolic blood 2019-03-13 18:49:00 124 mm[Hg] pressure Diastolic blood 2019-03-13 18:49:00 64 mm[Hg] MD Maria Esther higgins pressure Heart rate 2019-03-13 18:49:00 73 /min MD Lm juarez Body temperature 2019-03-13 18:49:00 36.61 Hanna MD Dorothy henao Respiratory rate 2019-03-13 18:49:00 18 /min MD Dorothy henao Body weight 2019-03-13 18:49:00 80.5 kg MD Lm juarez BMI 2019-03-13 18:49:00 32.25 kg/m2 MD Lm juarez Oxygen saturation in 2019-03-12 15:41:00 95 /min MD Galvez Arterial blood by Pulse oximetry Body height 2018-12-07 20:28:17 158 cm MD Lm juarez Respitory Rate 2017-01-11 17:52:00 [facility] Temperature Oral (F) 2017-01-11 17:52:00 98.5 F [facility] Systolic (mm Hg) 2017-01-11 17:52:00 [facility] rial Alejandro Diastolic (mm Hg) 2017-01-11 17:52:00 Mem o[facility] [place] Heart Rate 2017-01-11 17:52:00 [facility] Temperature Oral (F) 2017-01-11 13:27:00 98.4 F [facility] [place] Systolic (mm Hg) 2017-01-11 13:27:00 Malick rial Alejandro Diastolic (mm Hg) 2017-01-11 13:27:00 Mem o[facility] [place] Respitory Rate 2017-01-11 13:27:00 [facility] Heart Rate 2017-01-11 13:27:00 [facility] [place] Heart Rate 2017-01-11 09:05:00 [facility] Respitory Rate 2017-01-11 09:05:00 [facility] Systolic (mm Hg) 2017-01-11 09:05:00 [facility] rial [facility]jandro Diastolic (mm Hg) 2017-01-11 09:05:00 Mem o[facility] Temperature Oral (F) 2017-01-11 09:05:00 98.5 F [facility] Height 2017-01-04 19:54:00 157.48 cm [facility] [place] Weight 2017-01-04 19:54:00 [facility] [place] BMI Calculated 2017-01-04 19:54:00 [facility] BMI Calculated 2017-01-04 08:41:00 [facility] [place] Weight 2017-01-04 08:41:00 [facility] [place] Height 2017-01-04 08:41:00 157.48 cm [facility] Heart Rate 2013-02-10 12:53:00 [facility] Respitory Rate 2013-02-10 12:53:00 [facility] Systolic (mm Hg) 2013-02-10 12:53:00 [facility] rial [facility] Diastolic (mm Hg) 2013-02-10 12:53:00 [facility] Temperature Oral (F) 2013-02-10 12:53:00 98.3 F [facility] [place] Heart Rate 2013-02-10 09:29:00 [facility] [place] Respitory Rate 2013-02-10 09:29:00 [facility] [place] Diastolic (mm Hg) 2013-02-10 09:29:00 [facility] [place] Systolic (mm Hg) 2013-02-10 09:29:00 [facility] [place] Temperature Oral (F) 2013-02-10 09:29:00 98.4 F [facility] [place] Respitory Rate 2013-02-10 04:24:00 [facility] [place] Heart Rate 2013-02-10 04:24:00 [facility] [place] Temperature Oral (F) 2013-02-10 04:24:00 98.4 F [facility] Diastolic (mm Hg) 2013-02-10 04:24:00 [facility] Systolic (mm Hg) 2013-02-10 04:24:00 [facility] Weight 2013-02-05 06:05:00 [facility] [place] Weight 2013-02-05 00:04:00 [facility] [place] Height 2013-02-05 00:04:00 157.48 cm [facility] Heart Rate 2013-01-27 21:10:00 [facility] [place] Temperature Oral (F) 2013-01-27 21:10:00 97.6 F [facility] [place] Diastolic (mm Hg) 2013-01-27 21:10:00 [facility] [place] Respitory Rate 2013-01-27 21:10:00 [facility] [place] Systolic (mm Hg) 2013-01-27 21:10:00 [place] rial [facility] Diastolic (mm Hg) 2013-01-27 18:12:00 [facility] [place] Respitory Rate 2013-01-27 18:12:00 [facility] [place] Systolic (mm Hg) 2013-01-27 18:12:00 [facility] Heart Rate 2013-01-27 18:12:00 [facility] Temperature Oral (F) 2013-01-27 18:12:00 98.1 F [facility] Diastolic (mm Hg) 2013-01-27 13:07:00 [facility] Systolic (mm Hg) 2013-01-27 13:07:00 [facility] [facility] Temperature Oral (F) 2013-01-27 13:07:00 98.3 F [facility] [place] Respitory Rate 2013-01-27 13:07:00 [facility] [place] Heart Rate 2013-01-27 13:07:00 Angeles Robledoann Weight 2013-01-24 06:00:00 [facility] [place] Height 2013-01-24 06:00:00 157.48 cm [facility] Weight 2013-01-24 00:44:00 [facility] Height 2013-01-24 00:44:00 160.02 cm [facility] [place] Procedures Procedure Date / Time Performing Clinician Source Performed COMPLETE BLOOD COUNT W/ 2019-03-13 18:33:53 Suzanne Mehta MD DIFFERENTIAL COMPREHENSIVE METABOLIC 2019-03-13 18:33:53 Suzanne Mehta MD PANEL Results CBC 2019-03-13 18:33:53 Suzanne Mehta MD Andfrance tena MANUAL DIFFERENTIAL 2019-03-13 18:33:53 Suzanne Mehta MD And erson GLUCOSE LEVEL 2019-03-13 18:33:53 Suzanne Mehta MD Andfrance n BLOOD UREA NITROGEN 2019-03-13 18:33:53 Suzanne Mehta MD And erson ELECTROLYTE PANEL 2019-03-13 18:33:53 Suzanne Mehta MD Lm son SERUM CREATININE 2019-03-13 18:33:53 Suzanne Mehta MD Dmitriy on .GLOMERULAR FILTRATION 2019-03-13 18:33:53 Suzanne Mehta MD RATE CALCIUM LEVEL TOTAL 2019-03-13 18:33:53 Suzanne Mehta MD And erson ALBUMIN LEVEL 2019-03-13 18:33:53 Suzanne Mehta MD Andadalido n ALKALINE PHOSPHATASE 2019-03-13 18:33:53 Suzanne Mehta MD ALANINE AMINOTRANSFERASE 2019-03-13 18:33:53 Suzanne Mehta ASPARTATE AMINOTRANSFERASE 2019-03-13 18:33:53 Suzanne Mehta MD TOTAL PROTEIN 2019-03-13 18:33:53 Suzanne Mehta MD Andfrance tena FRACTIONATED BILIRUBIN 2019-03-13 18:33:53 Suzanne Mehta MD MRI ABDOMEN W WO CONTRAST 2019-03-12 16:46:[address] CHEST W CONTRAST 2019-01-08 17:35:00 Redd Sailnas MD Lm son MRI ABDOMEN W WO CONTRAST 2019-01-08 17:18:10 Redd Salinas MD [U] XRAY HIP UNILATERAL 2019-01-07 00:00:00 [facility] MIN 2 VWS LEFT [id number] Physicians [U] XRAY HIP UNILATERAL 2019-01-02 00:00:00 [facility] MIN 2 VWS LEFT [id number] Physicians COMPLETE BLOOD COUNT W/ 2019-01-01 16:02:00 Machelle Hollis MDrson DIFFERENTIAL COMPREHENSIVE METABOLIC 2019-01-01 16:02:00 Machelle Hollis MDrson PANEL MAGNESIUM LEVEL 2019-01-01 16:02:00 Machelle Hollis MD PHOSPHORUS LEVEL 2019-01-01 16:02:00 Machelle Hollis MD LACTATE DEHYDROGENASE 2019-01-01 16:02:00 Machelle Hollis URIC ACID 2019-01-01 16:02:00 Machelle Hollis MD Results CBC 2019-01-01 16:02:00 Machelle Hollis MD MANUAL DIFFERENTIAL 2019-01-01 16:02:00 Machelle Hollis MD Lm [facility] GLUCOSE LEVEL 2019-01-01 16:02:00 Machelle Hollis MD BLOOD UREA NITROGEN 2019-01-01 16:02:00 [facility] 2019-01-01 16:02:00 Machelle Hollis MDo n SERUM CREATININE 2019-01-01 16:02:00 Machelle Hollis MD .GLOMERULAR FILTRATION 2019-01-01 16:02:00 Machelle Hollis MDson RATE CALCIUM LEVEL TOTAL 2019-01-01 16:02:00 Machelle Hollis MD Lm son ALBUMIN LEVEL 2019-01-01 16:02:00 Machelle Hollis MD ALKALINE PHOSPHATASE 2019-01-01 16:02:00 Machelle Hollise rson ALANINE AMINOTRANSFERASE 2019-01-01 16:02:00 Machelle Hollis MD ASPARTATE AMINOTRANSFERASE 2019-01-01 16:02:00 Machelle Hollis TOTAL PROTEIN 2019-01-01 16:02:00 Machelle Hollis MD FRACTIONATED BILIRUBIN 2019-01-01 16:02:00 Machelle Hollis MD COMPLETE BLOOD COUNT W/ 2018-12-19 17:02:00 Bunny, Haihong MD A nderson DIFFERENTIAL COMPREHENSIVE METABOLIC 2018-12-19 17:02:00 Machelle Hollis MD nderson PANEL LACTATE DEHYDROGENASE 2018-12-19 17:02:00 Machelle Hollis MAGNESIUM LEVEL 2018-12-19 17:02:00 Machelle Hollis MD PHOSPHORUS LEVEL 2018-12-19 17:02:00 Machelle Hollis MD URIC ACID 2018-12-19 17:02:00 Machelle Hollis MD CANCER ANTIGEN 19-9 2018-12-19 17:02:00 Machelle Hollis MD Lm son ALPHA FETOPROTEIN TUMOR 2018-12-19 17:02:00 Machelle Hollis MD nderson MARKER Results CBC 2018-12-19 17:02:00 Machelle Hollis MD MANUAL DIFFERENTIAL 2018-12-19 17:02:00 Machelle Hollis MD Lm son GLUCOSE LEVEL 2018-12-19 17:02:00 Machelle Hollis MD BLOOD UREA NITROGEN 2018-12-19 17:02:00 Machelle Hollis MD Lm son ELECTROLYTE PANEL 2018-12-19 17:02:00 Machelle Hollis MDo n SERUM CREATININE 2018-12-19 17:02:00 Machelle Hollis MD .GLOMERULAR FILTRATION 2018-12-19 17:02:00 Machelle Hollis MDson RATE CALCIUM LEVEL TOTAL 2018-12-19 17:02:00 Machelle Hollis MD Lm son ALBUMIN LEVEL 2018-12-19 17:02:00 Machelle Hollis MD ALKALINE PHOSPHATASE 2018-12-19 17:02:00 Machelle Hollis MD rselly ALANINE AMINOTRANSFERASE 2018-12-19 17:02:00 Machelle Hollis MD ASPARTATE AMINOTRANSFERASE 2018-12-19 17:02:00 Machelle Hollis TOTAL PROTEIN 2018-12-19 17:02:00 Machelle Hollis MD FRACTIONATED BILIRUBIN 2018-12-19 17:02:00 Machelle Hollis MDson POC GLUCOSE SCREEN 2018-12-11 18:51:00 Diomedes Frederick MD Dmitriy on HOME O2 EVAL 2018-12-11 17:30:27 Diomedes Frederick MD POC GLUCOSE SCREEN 2018-12-11 14:35:00 Diomedes Frederick MD on COMPLETE BLOOD COUNT W/ 2018-12-11 06:18:00 MD Lenny Morrow DIFFERENTIAL Shay COMPREHENSIVE METABOLIC 2018-12-11 06:18:00 MD Lenny Morrow PANEL Shay Results CBC 2018-12-11 06:18:00 Olive Hardy MD Lm son Shay MANUAL DIFFERENTIAL 2018-12-11 06:18:00 MD Dorothy Morrow nderson Shay GLUCOSE LEVEL 2018-12-11 06:18:00 Olive Hardy MD Lm son Shay BLOOD UREA NITROGEN 2018-12-11 06:18:00 MD Dorothy Morrow nderson Shay ELECTROLYTE PANEL 2018-12-11 06:18:00 Olive Hardy MD And erson Shay SERUM CREATININE 2018-12-11 06:18:00 Olive Hardy MD Compa rson Shay .GLOMERULAR FILTRATION 2018-12-11 06:18:00 Harleen Morrow RATE Shay CALCIUM LEVEL TOTAL 2018-12-11 06:18:00 MD Dorothy Morrow nderson Shay ALBUMIN LEVEL 2018-12-11 06:18:00 Olive Hardy MD Lm son Shay ALKALINE PHOSPHATASE 2018-12-11 06:18:00 MD Lenny Morrow ALANINE AMINOTRANSFERASE 2018-12-11 06:18:00 MD Lenny Morrow Shay ASPARTATE AMINOTRANSFERASE 2018-12-11 06:18:00 MD Lenny Chao Shay TOTAL PROTEIN 2018-12-11 06:18:00 Olive Hardy MD Lm son Shay FRACTIONATED BILIRUBIN 2018-12-11 06:18:00 Harleen Morrow POC GLUCOSE SCREEN 2018-12-10 23:05:00 Diomedes Frederick MD on OSCILLATORY PEP 2018-12-10 19:01:26 Warren Lin MD POC GLUCOSE SCREEN 2018-12-10 18:50:00 Diomedes Frederick MD on ECHOCARDIOGRAM 2D COMPLETE 2018-12-10 16:25:56 Diomedes Frederick POC GLUCOSE SCREEN 2018-12-10 14:22:00 Diomedes Frederick MD on OSCILLATORY PEP 2018-12-10 13:00:18 Warren Lin MD COMPLETE BLOOD COUNT W/ 2018-12-10 05:32:00 MD Lenny Morrow DIFFERENTIAL Shay COMPREHENSIVE METABOLIC 2018-12-10 05:32:00 MD Lenny Morrow PANEL Shay Results CBC 2018-12-10 05:32:00 Olive Hardy MD Lm son Shay MANUAL DIFFERENTIAL 2018-12-10 05:32:00 MD Dorothy Morrow nderson Shay GLUCOSE LEVEL 2018-12-10 05:32:00 Olive Hardy MD Lm son Shay BLOOD UREA NITROGEN 2018-12-10 05:32:00 MD Dorothy Morrow nderson Shay ELECTROLYTE PANEL 2018-12-10 05:32:00 Olive Hardy MD And erson Shay SERUM CREATININE 2018-12-10 05:32:00 Olive Hardy MD Compa rson Shay .GLOMERULAR FILTRATION 2018-12-10 05:32:00 Harleen Morrow RATE Shay CALCIUM LEVEL TOTAL 2018-12-10 05:32:00 MD Dorothy Morrow nderson Shay ALBUMIN LEVEL 2018-12-10 05:32:00 Olive Hardy MD Lm son Shay ALKALINE PHOSPHATASE 2018-12-10 05:32:00 MD Lenny Morrow Shay ALANINE AMINOTRANSFERASE 2018-12-10 05:32:00 MD Lenny Morrow Shay ASPARTATE AMINOTRANSFERASE 2018-12-10 05:32:00 MD Lenny Chaoar TOTAL PROTEIN 2018-12-10 05:32:00 Olive Hardy MD Ml son Shay FRACTIONATED BILIRUBIN 2018-12-10 05:32:00 Harleen Morrow POC GLUCOSE SCREEN 2018-12-10 01:30:00 Diomedes Frederick MD on OSCILLATORY PEP 2018-12-10 01:00:15 Warren Lin MD NT PRO BNP 2018-12-09 22:21:00 Diomedes Frederick MD HC PROCALCITONIN (PCT) 2018-12-09 22:21:00 Diomedes Frederick MD derson OSCILLATORY PEP 2018-12-09 19:01:38 Warren Lin MD HOME O2 EVAL 2018-12-09 17:55:37 Diomedes Frederick MD VANCOMYCIN LEVEL TROUGH 2018-12-09 17:17:00 MD Lenny Morrow Shay POC GLUCOSE SCREEN 2018-12-09 14:43:00 Diomedes Frederick MD Dmitriy on COMPLETE BLOOD COUNT W/ 2018-12-09 05:29:00 MD Lenny Morrow DIFFERENTIAL Shay COMPREHENSIVE METABOLIC 2018-12-09 05:29:00 MD Lenny Morrow PANEL Shay Results CBC 2018-12-09 05:29:00 Olive Hardy MD Lm son Shay MANUAL DIFFERENTIAL 2018-12-09 05:29:00 MD Dorothy Morrow nderson Shay GLUCOSE LEVEL 2018-12-09 05:29:00 Olive Hardy MD Lm son Shay BLOOD UREA NITROGEN 2018-12-09 05:29:00 MD Dorothy Morrow nderson Shay ELECTROLYTE PANEL 2018-12-09 05:29:00 Olive Hardy MD And erson Shay SERUM CREATININE 2018-12-09 05:29:00 Olive Hardy MD Compa rson Shay .GLOMERULAR FILTRATION 2018-12-09 05:29:00 Harleen Morrwo RATE Shay CALCIUM LEVEL TOTAL 2018-12-09 05:29:00 MD Dorothy Morrow nderson Shay ALBUMIN LEVEL 2018-12-09 05:29:00 Olive Hardy MD Lm son Shay ALKALINE PHOSPHATASE 2018-12-09 05:29:00 MD Lenny Morrow Shay ALANINE AMINOTRANSFERASE 2018-12-09 05:29:00 MD Lenny Morrow Shay ASPARTATE AMINOTRANSFERASE 2018-12-09 05:29:00 MD Lenny Chao Shay TOTAL PROTEIN 2018-12-09 05:29:00 Olive Hardy MD Lmchico juarez Shay FRACTIONATED BILIRUBIN 2018-12-09 05:29:00 Harleen Morrow Shay POC GLUCOSE SCREEN 2018-12-09 01:41:00 MD Maria Esther Morrow Shay OSCILLATORY PEP 2018-12-09 01:00:[address] CHEST PULMONARY 2018-12-09 00:46:19 MD Maria Esther Morrowson EMBOLISM W CONTRAST Shay POC GLUCOSE SCREEN 2018-12-08 22:58:00 MD Maria Esther Morrow Shay POC GLUCOSE SCREEN 2018-12-08 19:15:00 MD Maria Esther Morrowar OSCILLATORY PEP 2018-12-08 19:01:42 Warren Lin MD COMPLETE BLOOD COUNT W/ 2018-12-08 16:53:00 MD Lenny Morrow DIFFERENTIAL Shay COMPREHENSIVE METABOLIC 2018-12-08 16:53:00 MD Lenny Morrow PANEL Shay Results CBC 2018-12-08 16:53:00 Olive Hardy MD Lmchico Day MANUAL DIFFERENTIAL 2018-12-08 16:53:00 Olive Hardy MD A nderson Shay GLUCOSE LEVEL 2018-12-08 16:53:00 Olive Hardy MD Lm larry Day BLOOD UREA NITROGEN 2018-12-08 16:53:00 Olive Hardy MD A nderson Shay ELECTROLYTE PANEL 2018-12-08 16:53:00 Olive Hardy MD And erson Shay SERUM CREATININE 2018-12-08 16:53:00 Olive Hardy MD Compa rselly Day .GLOMERULAR FILTRATION 2018-12-08 16:53:00 Harleen Morrow RATE Shay CALCIUM LEVEL TOTAL 2018-12-08 16:53:00 MD Dorothy Morrow nderson Shay ALBUMIN LEVEL 2018-12-08 16:53:00 Olive Hardy MD Lmchico juarez Shay ALKALINE PHOSPHATASE 2018-12-08 16:53:00 MD Lenny Morrow Shay ALANINE AMINOTRANSFERASE 2018-12-08 16:53:00 MD Lenny Morrow Shay ASPARTATE AMINOTRANSFERASE 2018-12-08 16:53:00 MD Lenny Chaoar TOTAL PROTEIN 2018-12-08 16:53:00 Olive Hardy MD Lm [facility] Shay FRACTIONATED BILIRUBIN 2018-12-08 16:53:00 Harleen Morrow Shay POC GLUCOSE SCREEN 2018-12-08 14:56:00 MD Maria Esther Morrow Shay POC GLUCOSE SCREEN 2018-12-08 00:37:00 Warren Lin MD on OSCILLATORY PEP 2018-12-07 21:51:28 Warren Lin MD POC GLUCOSE SCREEN 2018-12-07 20:07:00 Redd Salinas MD on COMPLETE BLOOD COUNT W/ 2018-12-07 19:17:00 Warren Lin MD nderson DIFFERENTIAL COMPREHENSIVE METABOLIC 2018-12-07 19:17:00 Warren Lin MD nderson PANEL Results CBC 2018-12-07 19:17:00 Redd Salinas MD MANUAL DIFFERENTIAL 2018-12-07 19:17:00 Redd Salinas MD [facility] GLUCOSE LEVEL 2018-12-07 19:17:00 Rded Salinas MD BLOOD UREA NITROGEN 2018-12-07 19:17:00 Redd Salinas MD [facility] ELECTROLYTE PANEL 2018-12-07 19:17:00 Redd Salinas MD SERUM CREATININE 2018-12-07 19:17:00 Redd Salinas MD .GLOMERULAR FILTRATION 2018-12-07 19:17:00 Redd Salinas MDson RATE CALCIUM LEVEL TOTAL 2018-12-07 19:17:00 Redd Salinas MD Lm [facility] ALBUMIN LEVEL 2018-12-07 19:17:00 Redd Salinas MD ALKALINE PHOSPHATASE 2018-12-07 19:17:00 Redd Salinas MD rson ALANINE AMINOTRANSFERASE 2018-12-07 19:17:00 Redd Salinas MD ASPARTATE AMINOTRANSFERASE 2018-12-07 19:17:00 Redd Salinas TOTAL PROTEIN 2018-12-07 19:17:00 Redd Salinas MD FRACTIONATED BILIRUBIN 2018-12-07 19:17:00 Redd Salinas MD An derson XR CHEST 2 VW 2018-12-07 17:44:39 Milagros Gr MD Dmitriy on POC GLUCOSE SCREEN 2018-12-07 12:49:00 Olive Hardy MD An derlarry Shay POC GLUCOSE SCREEN 2018-12-07 04:57:00 Olive Hardy MD An derlarry Shay POC CRITICAL 2018-12-07 02:04:00 Olive Hardy MD Lm son Shay POC GLUCOSE SCREEN 2018-12-07 02:04:00 Olive Hardy MD An derlarry Shay POC GLUCOSE SCREEN 2018-12-06 18:00:00 Olive Hardy MD An eloson Shay XR CHEST 1 VW 2018-12-06 17:45:49 Milagros Gr MD Dmitriy on POC GLUCOSE SCREEN 2018-12-06 13:37:00 Olive Hardy MD An derlarry Shay POC GLUCOSE SCREEN 2018-12-06 03:51:00 Olive Hardy MD An derlarry Shay POC GLUCOSE SCREEN 2018-12-06 02:03:00 Olive Hardy MD An derlarry Shay POC GLUCOSE SCREEN 2018-12-05 23:27:00 Olive Hardy MD An derson Shay XR CHEST 2 VW 2018-12-05 22:25:19 Shiv Garcia MD NM Y-90 THERASPHERE DOSING 2018-12-04 21:50:42 Redd Salinas AND POST THERAPY IMAGING IR THERASPHERE-TREATEMENT 2018-12-04 18:58:24 Shiv Garcia POC GLUCOSE SCREEN 2018-12-04 13:02:00 Provider, Nilesh vicente COMPLETE BLOOD COUNT W/ 2018-12-03 17:23:00 Celena Maciel MD nderson DIFFERENTIAL PROTHROMBIN TIME 2018-12-03 17:23:00 Celena Maciel MD FRACTIONATED BILIRUBIN 2018-12-03 17:23:00 Celena Maciel MD An derson ALBUMIN LEVEL 2018-12-03 17:23:00 Celena Maciel MD LACTATE DEHYDROGENASE 2018-12-03 17:23:00 Celena Maciel MD And erson ALANINE AMINOTRANSFERASE 2018-12-03 17:23:00 Celena Maciel MD ASPARTATE AMINOTRANSFERASE 2018-12-03 17:23:00 Celena Maciel SERUM CREATININE 2018-12-03 17:23:00 Celena Maciel MD ALPHA FETOPROTEIN TUMOR 2018-12-03 17:23:00 Celena Maciel MD A nderson MARKER Results CBC 2018-12-03 17:23:00 Provider, Unknown MD Thompson tena MANUAL DIFFERENTIAL 2018-12-03 17:23:00 Provider, Unknown And erson SERUM CREATININE 2018-12-03 17:23:00 Provider, Unknown MD Izaguirre on .GLOMERULAR FILTRATION 2018-12-03 17:23:00 Provider, Nilesh Galvez RATE NM PRE-THERASPHERE MAA 2018-11-12 23:56:49 Redd Salinas MDson LIVER IMAGING IR ANGIOGRAPHY VISCERAL 2018-11-12 22:13:00 Redd Salinas MD nderson SELECTIVE (INITIAL) POC GLUCOSE SCREEN 2018-11-12 18:55:00 Redd Salinas MD Dmitriy on COMPLETE BLOOD COUNT W/ 2018-11-11 17:30:00 Bre Case MD A nderson DIFFERENTIAL PROTHROMBIN TIME 2018-11-11 17:30:00 Bre Case MD FRACTIONATED BILIRUBIN 2018-11-11 17:30:00 Bre Case MD derson ALBUMIN LEVEL 2018-11-11 17:30:00 Bre Case MD LACTATE DEHYDROGENASE 2018-11-11 17:30:00 Bre Case MD And erson ALANINE AMINOTRANSFERASE 2018-11-11 17:30:00 Bre Case MD ASPARTATE AMINOTRANSFERASE 2018-11-11 17:30:00 Bre Case SERUM CREATININE 2018-11-11 17:30:00 Bre Case MD ALPHA FETOPROTEIN TUMOR 2018-11-11 17:30:00 Bre Case MD A nderson MARKER Results CBC 2018-11-11 17:30:00 Bre Case MD MANUAL DIFFERENTIAL 2018-11-11 17:30:00 Bre Caseer son SERUM CREATININE 2018-11-11 17:30:00 Bre Case MD .GLOMERULAR FILTRATION 2018-11-11 17:30:00 Bre Case MD derson RATE [U] XRAY HIP UNILATERAL 2018-01-01 00:00:00 [facility] [place] MIN 2 VWS LEFT [id number] Physicians [U] XRAY HIP UNILATERAL 2017-12-20 00:00:00 [facility] [place] MIN 2 VWS LEFT [id number] Physicians [U] XRAY HIP UNILATERAL 2017-08-21 00:00:00 [facility] [place] MIN 2 VWS LEFT [id number] Physicians [U] XRAY FOOT MIN 3 VWS 2017-05-29 00:00:00 [facility] [place] LEFT [id number] Physicians [U] XRAY HIP UNILATERAL 2017-05-23 00:00:00 [facility] [place] MIN 2 VWS RIGHT [id number] Physicians Endoscopic Excision or 2013-02-06 05:00:00 [facility] Destruction of Lesion or Tissue of Esophagus Transfusion of Packed 2013-02-05 05:00:00 [facility] [place] Cells Colonoscopy 2013-01-26 05:00:00 [facility] dill Colonoscopy 2013-01-26 05:00:00 [facility] dill Endoscopic Excision or 2013-01-26 05:00:00 [facility] Destruction of Lesion or Tissue of Esophagus Transfusion of Packed 2013-01-24 05:00:00 [facility] Cells App[facility]ectomy [facility] [place] [facility] [place] Hysterectomy [facility] Lamine[facility] TIPS - Transjugular [facility] dill intrahepatic portosystemic shunt Append[facility] Hysterectomy [facility] Plan of Care Planned Activity Planned Date Details Comments Source Future Scheduled 2019-12-[address] [facility] - Test 00:00:00 (Season Ended) [code = Medic al Center INFLUENZA VACCINE (Season Ended)] Future Scheduled 2016-11-27 HEMOGLOBIN A1C [code [facility]00 HEMOGLOBIN A1C] Medical Cent er Future Scheduled 2014-04-[address] [facility] 00:00:00 WELLNESS (YEAR 2 or Medical Center FIRST YEAR if no IPPE) [code = MEDICARE ANNUAL WELLNESS (YEAR 2 or FIRST YEAR if no IPPE)] Future Scheduled 2007-12-31 PNEUMOCOCCAL [address]+ [facility] - Test 00:00:00 HIGH/HIGHEST RISK (1 Medical Center of 2 - PCV13) [code = PNEUMOCOCCAL 65+ HIGH/HIGHEST RISK (1 of 2 - PCV13)] Future Scheduled 1950 DIABETIC EYE EXAM [facility] - Test 00:00:00 [code = DIABETIC EYE Medical Center EXAM] Future Scheduled [address] examination Medical Center (regime/therapy) [code = 880334434] Encounters Start End Encounter Admission Attending Care Care Encounter Source Date/Time Date/Time Type Type Clinicians Facility Department ID 2019-01-14 2019-01-14 [facility] [id number] [facility] 13:15:00 13:15:00 t; MILAGROS MENON Trauma ity o f ANDREW, M.D. [facility] 2019-01-07 2019-01-07 Mikaela MENON [facility] [[email or web address] Orthopedics [id number] Univers 13:00:00 13:00:00 t; MILAGROS MENON Trauma ity o f ANDREW, M.D. [facility] 2018-01-08 2018-01-08 Mikaela MENON [facility] [[email or web address] Orthopedics [id number] Univers 13:00:00 13:00:00 t; MILAGROS MENON ity o f ANDREW, M.D. [facility] 2018-01-01 2018-01-01 Mikaela MENON [facility] [[email or web address] Orthopedics [id number] Univers 13:00:00 13:00:00 t; MILAGROS MENON ity o f ANDREW, M.D. [facility] 2017-08-28 2017-08-28 Mikaela MENON [facility] [[email or web address]] Orthopedics [id number] Univers 13:00:00 13:00:00 t; MILAGROS MENON ity o f ANDREW, M.D. [facility] 2017-05-29 2017-05-29 Mikaela MENON [facility] [[email or web address]] Orthopedics [id number] Univers 13:00:00 13:00:00 t; MILAGROS MENON ity o f ANDREW, M.D. [facility] 2017-02-27 2017-02-27 Appointmen LYNSEY ANN UTP [id number] Univers 13:00:00 13:00:00 t; MILAGROS MENON ity o f ANDREW, [facility].D[facility] 2017-01-30 2017-01-30 AppointANN Cardenas UTP [id number] Univers 13:15:00 13:15:00 t; SURAJ QUIROZ NP [facility] [place], [place] [facility] 2017-01-29 2017-01-29 Outpatient Lynsey, [id number] 11:10:00 23:59:00 Milagros Duarte [id number] 2017-01-04 2017-01-[address] [facility] [id number] 03:38:00 15:18:00 Mary Claros 2013-02-04 2013-02-10 Outpatient MHIE MHIE [id number] Memoria 19:02:00 12:10:00 01 l [facility] 2013-02-04 2013-02-10 Outpatient MHIE MHIE [id number] Memoria 19:02:00 12:10:00 01 l [facility] 2013-02-04 2013-02-10 Outpatient MHIE MHIE [id number] Memoria 19:02:00 12:10:00 01 l [facility] 2013-02-04 2013-02-10 Outpatient MHIE MHIE [id number] Memoria 19:02:00 12:10:00 01 l [facility] 2013-02-04 2013-02-10 Outpatient MHIE MHIE [id number] Mem[facility] 19:02:00 12:10:00 01 l [facility] 2013-01-23 2013-01-27 Outpatient MHIE MHIE [id number] [facility] 19:17:00 18:20:00 00 l [facility] 2013-01-23 2013-01-27 Outpatient MHIE MHIE [id number] [facility] 19:17:00 18:20:00 [address] [facility] 2013-01-23 2013-01-27 Outpatient [facility] [id number] [facility] 19:17:00 18:20:00 00 poornima [facility] Results Test Test Test Results Result Source Description Time Comments Comments MRI Abdomen 2019-02-20. Findings in the liver is MD Galvez with and 22 similar. There are findings without 18:55:21 that are probably due to Contrast posttreatment changes.. 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 Evaluation of disease status..Comparison: December 29, 2018Technique: MRI ABDOMEN W WO CONTRAST Findings: The liver morphology is in keeping with cirrhosis.There is a 9 mm arterial enhancing observation in segment 4 of the liver. This is seen on series 100 image 25. There is no corresponding signal abnormality on the T2, T1 or diffusion-weighted imaging. This is similar to the prior examination. Suggestive of perfusion abnormality.There is a 9 mm arterial enhancing observation in segment 5 of the liver. This is seen on series 100 images 39. There is no corresponding abnormal signal on the T1, T2 and diffusion weighted imaging. Suggestive of perfusion abnormality.There is a similar arterial enhancing observation in the left liver on series 100 image 41.There is an area of arterial enhancement in segment 7 and 6 of the liver. This is seen on series 100 image 21-45. There are corresponding areas of high signal intensity on the diffusion-weighted imaging and T2-weighted imaging. On delayed imaging there is no definite washout. This is suggestive of post treatment changes.There is a TIPS shunt is in place. The patient is status post Y-90 radio embolization.Spleen measures 10.4 cm. There is no hydronephrosis. The pancreas is stable. There is a probable side branch intraductal papillary mucinous neoplasm in the neck of the pancreas. This is suspected on series 4 image 28. This is less than 5 mm. No adrenal mass. There is no enlarged node in the abdomen. Images in the abdomen are degraded by motion artifact. There is perihepatic ascites. Vertebral bodies are stable.Please see separate CT chest report of the same day. IMPRESSION:1. Findings in the liver is similar. There are findings that are probably due to posttreatment changes.. There are multiple arterial enhancing observations without definite washout. CT Chest with 2018-12- Interval decrease of right MD Galvez Contrast 19 middle and right lower lobe 19:59:40 airspace opacities that may represent atelectasis and/or pneumonia. No evidence of intrathoracic metastasis.Interface, Radiology Results In - 01/08/2019 3:01 PM CDTFULL RESULT:Examination: CT CHEST W CONTRAST, 01/08/2019 12:35 PMClinical History: Hepatocellular carcinomaIndication: Assessment of metastatic diseaseComparison: December 08, 2018Technique: CT of the chest was performed using intravenous contrast.Findings: Interval decrease of right middle and right lower lobe airspace opacities. Stable tiny left lower lobe nodule (image 66, series 3). No evident suspicious lung nodules.No evidence of mediastinal or hilar adenopathy.Thoracic aorta and pulmonary artery with normal caliber. Atherosclerosis of the aorta and coronary arteries.Cardiac chambers are normal in size. No evidence of pleural or pericardial effusions.Cirrhotic liver, TIPS, ascites and multifocal hepatocellular carcinoma are better assessed in an abdominal MRI obtained on the same day.No evidence of bony destructive lesions.IMPRESSION:Interval decrease of right middle and right lower lobe airspace opacities that may represent atelectasis and/or pneumonia.No evidence of intrathoracic metastasis. POC Glucose Screen 2018-12-11 19:00:27 Test Item Value Reference Range Interpretation Comme nts POC Glucose (test code = 07760-0) 275 mg/dL 70-99 H Capillary blood samples, e.g. obtained by [facility], may have inaccurate results in patients with d ecreased peripheral bloo d flow. PO Sample Type (test code = 9554) Capillary Lab Interpretation (test code = Abnormal 64160-2) MD GalvezEchocardiogram 2D [id number] 00:00:00 Test Item Value Reference Range Interpretation Comments BSA (test code = 8279610515) 1.93 m2 MD Gal[id number] 23:16:44 Test Item Value Reference Range Interpretation Comments Procalcitonin (test 0.06 ng/mL <=0.08 Procalci tonin > 2.00 code = 9379) ng/mL: Procalcitonin l evels above 2.00 ng/m L are highly suggesti ve of a high risk for systematic bact erial infection/ enrique re sepsis and/or s eptic shock. Procalci tonin < 0.50 ng/mL: Procalcitonin l evels below 0.50 ng/m L are at low risk for progression to severe sepsis and/ or septic shock. Procalci tonin (ProCT) between 0.15 and 2.0 ng/mL d o not exclude infecti on, because localiz ed infections (wit hout systemic signs) may be associated w ith such low levels . Results greater than 400 ng/mL may n ot be reliable due to the matrix effect w ith extended diluti on as it exceeds the bottom stop attacher's recommended gunter it. Caution should be exercised when interpreting walsh ch values and done in conjunction wit jarret clinical contex tNery GalvezNT-Pro BNP (In-House)2018-12-09 23:09:04 Test Item Value Reference Range Interpretation Comments NT ProBNP (test code = 9385) 63 pg/mL <=450 MD GalvezGA Y-90 THERASPHERE DOSING AND POST THERAPY [id number] 21:45:321. Uncomplicated administration of Yttrium-90 Theraspheres to liver segment on protocol 2007.2. Radiation emission is noted from liver segment with no evidence of significant extrahepatic radiation emission. Interface, Radiology Results In - 12/09/2018 4:47 PM CDTFULL RESULT:Examination : NM Y-90 THERASPHERE DOSING AND POST THERAPY IMAGING, 12/04/2018 4:50 PMClinical History: 77-year-old female with cholangiocarcinoma involving the liver.Indication: Evaluate radiation emission patternfollowing therapy with Yttrium-90 Theraspheres on protocol 2007.Comparison: Correlation is made with same-day angiography and with the diagnostic SPECT/CT dated 11/12/2018.Technique: The patientunderwent angiography within the interventional radiology suite performed by Dr. Hernandez. During the course the procedure, a microcatheter was placed within the segment hepatic artery followed by infusion of the provided 1.42 GBq of Yttrium-90 Theraspheres. The calculated percent activity administered is 90.3% which represents 1.28 GBq. This activity is 93.5% of the prescribed dose of 250 Gy, yielding an estimated target tissue dose of 233.8 Gy. The estimated lung dose from this therapy is 1.6Gy. Thus, the patient received below the single dose limit to the lungs of 30 Gy.The patient subsequently presented to the nuclear medicine department where SPECT/CT was performed from the upper thoraxto the upper pelvis.Findings: Heterogeneous radiation emission is noted from liver segment . Areasof increased radiation emission do correspond to sites of tumor. There is no evidence of significant extrahepatic radiation emission.CT Findings: No distinct pulmonary nodules are noted. The liver has a cirrhotic appearance. A lesion within the posterior aspect of the right liver now demonstrates uptake of contrast material. A TIPS is in place. The gallbladder has been resected. Evaluation of the unenhanced spleen, pancreas, adrenal glands, and kidneys is unremarkable. A small amount of fluid is present along the lateral right liver. No lymphadenopathy is identified. No suspicious lytic or blastic skeletal abnormalities are observed.IMPRESSION:1. Uncomplicated administration of Yttrium-90 Theraspheres to liver segment on protocol 2008 - 0770.2. Radiation emission is noted from liver segment VIwith no evidence of significant extrahepatic radiation emission. MD GalvezVanselvinycin Trough Vancomycin trough prior to 3rd dose on 12/09/18@12:00PM. Nurse please coordinate with lab to draw trough approximately 11 - 11.5hours after 12/09/18 midnight vanco dose. Wait for vancomycin trough result before giving 12/09/18 noon ...2018-12-09 19:58:00 Test Item Value Reference Interpretation Comments Range Vanco Trough (test <4.0 5.0- 20.0 L Toxic Tro ugh Level: code = 8008) mcg/mL >20 mcg/mL Vanco Tr Dose Time see note Level, da te, and (test code = 8007) time of p revious dose is not availablefor th is sample. The claudia e reported is the samplecollectio n date. Vanco Tr Dose Date 12/09/2018 (test code = 8006) ANIL (test code = Vancomycin trough ANIL) prior to 3rd dose on 12/09/18@12:00PM. Nurse please coordinate with lab to draw trough approximately 11 - 11.5hours after 12/09/18 midnight vanco dose. Wait for vancomycin trough result before giving 12/09/18 noon dose, hold vancomycin doses if trough is greater than 20 and notify MD. Thanks! Lab Interpretation Abnormal (test code = 27569-3) MD GalvezCT Chest Pulmonary Embolism with [id number] 01:01:16 Suboptimal exam due to respiratory motion artifacts. No convincing evidence of pulmonary emboli. Development of elevation of the right hemidiaphragm with near complete atelectasis of the right middle and lower lobes. Superimposed pneumonia cannot be excludedInterface, Radiology Results In - 12/08/2018 8:03 PM CDTFULL RESULT:Examination: CT CHEST PULMONARY EMBOLISM W CONTRAST, 12/08/2018 7:46 PMClinical History: Cancer of liverIndication: hypoxia post opComparison: 09/19/2018Technique: CT of the chestwas performed using intravenous contrast.Findings: Technical Quality: The exam is compromised due tomotion artifactsPulmonary Arteries: There is no filling defect in the pulmonary arteries to suggest a pulmonary embolism.Tubes and Lines: NoneLungs and Airways: There is elevation of the right hemidiaphragm with development of near-complete right middle and lower lobe atelectasis. There is linear atelectasis in the left lower lobe and lingula.Pleura: The pleural spaces are clear.Heart and Mediastinum: No significant mediastinal or hilar lymphadenopathy is seen. The heart and pericardium are within normal limits. There is moderate atherosclerotic calcification of the aorta and coronary arteries.Soft Tissues: Normal.Upper Abdomen: The liver is cirrhotic in appearance. The patient is status post cholecystectomy. Tip catheter is noted. Hepatic lesions are not well evaluated given the phase of contrast enhancement. The adrenal glands are within normal limits. Bones: The visualized bony thorax is within normal limits. IMPRESSION:Suboptimal exam due to respiratory motion artifacts. No convincing evidence of pulmonary emboli.Development of elevation of the right hemidiaphragm with near complete atelectasis of the right middle and lower lobes. Superimposed pneumonia cannot be excluded [facility] [id number] 13:20:58 Test Item Value Reference Range Interpretation Comments POC Critical Comment See Note Test pe rformer notified (test code = 8955) Ordering Licensed Provider and /o r designee of POC Glucose Screen critical Results.. MD GalvezXR Chest 2 [id number] 17:55:34No significant change in small to moderate right pleural effusion and associated atelectasis in the right lower lung Interface, Radiology Results In - 12/07/2018 12:57 PM CDTFULL RESULT:Examination: XR CHEST 2 VW, 12/07/2018 12:44 PMClinical History: Hepatocellular carcinomaIndication: Shortness of BreathComparison: 12/06/2018Technique: Posteroanterior, lateral and dual-energy radiographs of the chest.Findings:The cardiomediastinal silhouette is stable. Small to moderate right pleural effusion is unchanged. There is no pneumothorax. The cardiomediastinal silhouette is stable.IMPRESSION:No significant change in small to moderate right pleural effusion and associated atelectasis in the right lower lungMD AndersonXR Chest 1 [id number] 17:49:14Increase in small right pleural effusion Interface, Radiology Results In - 12/06/2018 12:51 PM CDTFULL RESULT:Examination: XR CHEST 1 VW, 12/06/2018 12:45 PMClinical History: Cancer of the liverIndication: Shortness of BreathComparison: 12/05/2018Technique: Anteroposterior radiograph of the chest.Findings:The cardiomediastinal silhouette is stable. There is interval increase in small right pleural effu agusto. There is no evidence of left pleural effusion. No evidence of pulmonary edemaIMPRESSION:Increase in small right pleural effusionMD AndersonIR [id number] 22:08:10Date of Procedure: 12/04/18 Attending Physician: Galina Hernandez Conductor Road Freight: Shiv Garcia Pre Procedure Diagnosis: Hepatocellular Carcinoma Post Procedure Diagnosis: Unchanged Indication: Unresectable Hepatocellular Carcinoma. Title of Procedure:1- Transcatheter Arterial Radioembolization.2- Transcatheter Arterial [place] Embolization. Operative Findings: 1. Successful transcatheter arterial radioembolization of the right liver lesions (Segment 6) with Yttrium-90 Theraspheres radioactive microspheres.2. Successful transcatheter bland embolization of segment 5 lesion. 3. Successful transcatheter bland embolization of segment 8 lesion. Consent: The procedure, risks, indications and al ternatives were explained. All questions were answered and informed consent was obtained. I have reviewed the history and physical dictated by the mid-level practitioner / fellow. Sedation/Anesthesia: Moderate sedation for pain control and anxiety was administered by a dedicated nurse under my supervision. There was continuous monitoring of oxygen saturation, heart rate and intermittent monitoring of blood pressure during the procedure. Medication given was midazolam and fentanyl. I was present for the administration of the medications indicated above.Procedure Events Event Event Time Sedation Start 12/04/2018 8:29 AM Sedation End 12/04/2018 1:45 PM Procedures performed: 1. Ultrasound and fluoroscopic-guided right common femoral artery access. 2. Selective catheterization and digital subtraction angiography of the superior mesenteric artery. 3. Selective catheterization and digital subtraction angiography of the segment 6 branch artery[address] 4[address]athe[address] angiography of the segment 6branch artery5. Transcatheter arterial radioembolization of segment 6 Lesions with Yttrium-90 Theraspheres radioactive microspheres.6. Selective catheterization and digital subtraction angiography of the right inferior phrenic artery. 7. [place] Embolization of the branch of inferior phrenic artery supplying segment 8 lesion using 40 microns embozene particles 8. Super selective catheterization and digital subtraction angiography of the segment 5 branch artery. 9. Transcatheter CT angiography of the 2 branches of segment 5 branch artery.10. [place] Embolization of the branch of segment 5 branch artery supplying segment 5 lesion using 40 microns embozene particles. 11. Digital subtraction angiogram of the right common femoral artery. 12. Deployment of Mynx closure device Procedure in Detail: A time out was performed prior to the start of the procedure and the correct patient, procedure, presence of consent, site, and side were confirmed with all members of the team. With the patient in the supine position, the appropriate groin was prepped and draped in the usual sterile fashion. Lidocaine 1% was used for local anesthesia. Arterial access: Ultrasound evaluation of the target artery demonstrated patency. The needle was advanced into the right common femoral artery with ultrasound guidance and an image was obtained and placed into the patient's image file Using Seldinger technique, a Micropuncture set was used to upsize the access to accept a 5 Somali sheath. Arterial catheterization: Following arterial access, a 5 Somali SOS II catheter was used to select the SMA and digital subtraction angiography was performed which demonstrated a replaced right hepatic artery. A 2.8 Somali Progreat microcatheter and Fathom microwire were used to select the segment 6 branch. Digital subtraction angiography was performed which demonstrated multifocal tumor blush, as previously seen. This was followed by Transcatheter CT angiography of the segment 6 branch artery. Mild vasospasm was noted, and 1% lidocaine was administered, with improvement. Then, Therasphere radioembolization was performed (2 vials) from this position. The SOS II catheter was exchanged for a 5 Somali Sofia catheter, and the common origin of the inferior phrenic arteries was selected using 2 Somali Progreat microcatheter and a 0.016 microwire. Digital subtraction angiography was performed which again demonstrated supply to the segment 8 lesion via the right inferior phrenic artery. Super selective catheterization of thevessel supplying the segment 8 lesion was performed. Bronx particle embolization (approximately 1/2 vial, 40 micron) was performed to stasis with adequate Then, the Sofia catheter was used to again select the superior mesenteric arrtery. A 2.4 Somali Progreat microcatheter and a 0.018 microwire were used to select the segment 5 branch. Digital Subtraction angiogram followed by CT angiography of the 2 branches of segment 5 branch artery.Vasospasm was seen, and 1% lidocaine was again administered. A 0.014 Transend wire was used to super select the branch supplying the small segment 5 lesion.[place] particle embolization (approximately 1/4 vial, 40 micron) was performed to stasis with excellent angiographic result. The catheters were then removed. A right common femoral arteriogram was per formed through the sheath in a steep right anterior oblique projection demonstrating the arterial puncture site. This site was amenable to closure utilizing a Mynx closure device which was successful in achieving hemostasis. A sterile dressing was applied. The patient tolerated the procedure and left the interventional suite in stable baseline condition. Findings: 1.Patent antegrade flow of the superior mesenteric artery and its branches. Right Hepatic artery from the SMA.2. Patent main portal vein. 3. Patent antegrade flow of the right hepatic arteries.4. Tumor blush is noted in right lobe ofthe liver. Arterial sylvain venous shunt is noted in the superior segments of right Liver.5. Right inferior phrenic artery is supplying segment 8 lesion6. Post embolization angiogram revealed complete Stasis of embolized vessels and staining of segment 8 lesion.7. No intraluminal thrombus or vascular dissection seen in the right common femoral artery. Additional Comments: None Estimated Blood Loss: 25 cc Specimens Removed: No Immediate Complications: None Disposition: PACU Plan:Admit to extended recovery for overnight monitoring. Follow-up with cross- sectional imaging in 2-3 months.Follow-upphone call in 1 month with labs. I certify my physical presence at the time of the procedure. I personally reviewed the image(s) and the resident's / fellow's interpretation and agree with the written report.MD GalvezProthrombin [id number] 17:56:22 Test Item Value Reference Range Interpretation Comments PT (test code = 14.8 12.7- 15.0 second(s) Test ing Performed atACB 5902-2) Lab [employer] Equipment [employer] [id number] ,[place] [address] INR (test code = 1.14 0.90-1.20 Testing Per formed atACB 6301-6) Lab [employer] [id number] ,[place] [address] MD GalvezIR ANGIOGRAPHY VISCERAL SELECTIVE (INITIAL)2018-11-13 17:21:50Date of Procedure: 11/12/18 Attending Physician: Galina Hernandez Conductor Road Freight: None Pre ProcedureDiagnosis: Cholangiocarcinoma; Liver cell carcinoma Post Procedure Diagnosis: Unchanged Indication: Multifocal HCC, not amenable to surgery Title of Procedure:Planning Hepatic Angiography with Tc-99m Injection. Operative Findings: 1. Right Hepatic artery anatomy is conducive for selective radioem bolization with Yttrium-90 Theraspheres microspheres.2. The segment 8 lesion is not amenable to Y90 being supplied from the right inferior phrenic artery , will perform bland embolization. Consent: The procedure, risks, indications and alternatives were explained. All questions were answered and informed consent was obtained. I have reviewed the history and physical dictated by the mid- level practitioner / fellow. Sedation/Anesthesia: Moderate sedation for pain control and anxiety was administered by a dedicated nurse under my supervision. There was continuous monitoring of oxygen saturation, heart rate and intermittent monitoring of blood pressure during the procedure. Medication given was midazolam and fentanyl. I was present for the administration of the medications indicated above.Procedure Events Event Event Time Sedation Start 11/12/2018 3:02 PM Sedation End 11/12/2018 5:03 PM Procedures performed: 1. Ultrasound and fluoroscopic-guided right common femoral artery access. 2. Digi cintia subtraction angiogram of the celiac artery. 3. Digital subtraction angiogram of the left hepaticartery. 4. CT Angiogram from the left hepatic artery.5. Digital subtraction of the superior mesenteric artery. 6. Digital subtraction angiogram of the right hepatic artery. 7. CT Angiogram from the right hepatic artery. 8. Tc-99m MAA injection from the right hepatic artery. 3. Digital subtraction angiogram of the inferior phrenic arteries. 4. CT Angiogram from the inferior phrenic arteries. 7. Digital subtraction angiogram of the right common femoral artery. 8. Deployment of Mynx closure device Procedure in Detail: A time out was performed prior to the start of the procedure and the correct patient, procedure, presence of consent, site, and side were confirmed with all members of the team. With the patient in the supine position, the appropriate groin was prepped and draped in the usual sterile fashion. Lidocaine 1% was used for local anesthesia. Arterial access: Ultrasound evaluation of the target artery demonstrated patency. The needle was advanced into the artery with ultrasound guidance and an image was obtained and placed into the patient's image file Using Seldinger technique, a Micropuncture set was used to access the right common femoral artery. The access site was then upsized to accept a 5 Somali sheath. Arterial catheterization: Following arterial access, a 5 Somali SOS II catheter was used to select the celiac artery and a digital subtraction angiogram was performed. This demonstrated antegrade flow through the common hepatic artery, splenic artery, and left gastric artery. Subsequently a Progreat 2.8 micro-catheter and 0.016 in. Fathom micro-wire were used to selectively catheterize the left hepatic artery and angiogram(s) was performed.This was followed CT angiogram from the left hepatic artery. Subsequently, the 5 Somali SOS II catheter was used to select the superior mesenteric artery and a digital subtraction angiogram was performed. This demonstrated antegrade flow through the replaced right hepatic artery and SMA branches. Next, using coaxial technique, a Progreat 2.8 micro-catheter and 0.016 in. Fathom micro-wire were used to selectively catheterize the right hepatic artery and angiogram(s) was performed.This was followed CT angiogram from the right hepatic artery and 99-TC was injected from the Right hepatic artery. Attention was then drawn to the inferior phrenic artery given that segment 8 didn't show any arterial enhancement.The 5 FrenchSOS II catheter was used to select the origin of inferior phrenic arteries and a digital subtraction angiogram was performed. This was followed CT angiogram. Next, using coaxial technique, a Progreat2.8 micro-catheter and 0.016 in. Fathom micro-wire were used to selectively catheterize the right inferior mesenteric artery. However, all the attempts were not successful . The microcatheter and 5-Somali catheter were then removed. A right common femoral arteriogram was performed in a steep right anterior oblique projection demonstrating the arterial puncture site. This site was amenable to closure utilizing a Mynx closure device which was successful in achieving hemostasis. A sterile dressing was applied. The patient tolerated the procedure and left the interventional suite in stable baseline condition. Findings: 1. Patent celiac artery and its branches common hepatic artery, splenic and left gastric arteries2. Patent antegrade flow of the superior mesenteric artery and its branches. Right Hepatic artery from the SMA.3. Patent main portal vein. 4. Patent antegrade flow of the left and right hepatic arteries. 5. Tumor blush is noted in right lobe of the liver. Arterial sylvain venous shunt is noted in the superior segments of right Liver.6. Right inferior phrenic artery is supplying segment 8 lesion7. No intraluminal thrombus or vascular dissection seen in the right common femoral artery. ubsequently, he 5 Somali SOS II catheter was used to select the superior mesenteric artery and a digital subtraction angiogram was performed. This demonstrated antegrade flow through the replaced right hepatic artery and SMA branches. Next, using coaxial technique, a Progreat 2.8 micro-catheter and 0.016 in. Fathom micro-wire were used to selectively catheterize the right hepatic artery and angiogram(s) was performed.This was followed CT angiogram from the right hepatic artery Additional Comments: None Estimated Blood Loss: Minimal Specimens Removed: No Immediate Complications: None Disposition: PACU Plan: 1- The plan is to treat the inferior right liver selectively.2- [place] embolization of segment 8 lesion I certify my physical presence at the time of the procedure. I personally re viewed the image(s) and the resident's / fellow's interpretation and agree with the written report.MD GalvezGA PRE-THERASPHERE MAA LIVER [id number] 13:51:01Addendum by Brittany Oscar MD on 12/01/2018 10:56 AMSegment will be treated using uniform dosimetry modeling. The treatment volume is 259 mL. With a target dose of 250 Gy, the required activity of Yttrium-90 Theraspheres is 1.4 GBq. This activity yields an estimated lung dose of 1.7 Gy.1. There is he terogeneous distribution of radiotracer within the right hepatic lobe with areas of increased activity corresponding to sites of tumor.2. No significant extrahepatic perfusion is noted.3. The calculated lung shunt percentage is 2.54%.4. The treatment plan will be outlined in an addendum. Joey Forrester adiology Results In - 11/13/2018 8:53 AM CDTFULL RESULT:Examination: Pretherapeutic Liver SPECT imaging, 11/12/2018 6:56 PMClinical History: 77-year-old female with hepatocellular carcinoma.Indication:Evaluate hepatic perfusion pattern prior to therapy with Yttrium 90 Theraspheres on protocol [id number].Comparison: Correlation is made with same day angiography and with MRI dated 09/19/2018.Technique: The patient underwent angiography within the interventional radiology suite performed by Dr. Hernandez . During the course of the procedure, a microcatheter was placed within the right hepatic artery f ollowed by administration of the provided 5.5 mCi of technetium-99m MAA via the indwelling catheter.The patient subsequently presented to the nuclear medicine Department where static imaging was done in the anterior and posterior projections from the upper skull to the upper abdomen, from the midneckto the midabdomen, and from the midthorax through the midpelvis. SPECT/CT was done from the upper thorax to the upper pelvis with the liver as the area of interest.Findings: There is heterogeneous distribution of radiotracer within the right hepatic lobe. Areas of increased radiotracer uptake do correspond to hepatic lesions when correlation is made with prior diagnostic imaging. There is prominent activity within the medial aspect of segment VII near the shunt which does not appear to correlate to tumor. There are no foci of abnormal radiotracer uptake to suggest significant extrahepatic perfusion.The calculated lung shunt percentage is 2.54%. CT Findings: No distinct pulmonary nodules are noted.The liver demonstrates a cirrhotic appearance; the sites of hepatocellular carcinoma are not delineated on noncontrast CT. TIPS has been performed. The gallbladder has been resected. Evaluation of the unenhanced spleen, pancreas, adrenal glands, and kidneys is unremarkable. No lymphadenopathy or ascites is identified. No suspicious lytic or blastic skeletal abnormalities are observed.IMPRESSION:1. There is heterogeneous distribution of radiotracer within the right hepatic lobe with areas of increased activity corresponding to sites of tumor.2. No significant extrahepatic perfusion is noted.3. The calculated lung shunt percentage is 2.54%.4. The treatment plan will be outlined in an addendum.MD Galvez[U] XRAY HIP UNILATERAL MIN 2 VWS LEFT [id number] 13:01:00Images acquired, not reported on this accession number.[facility] W/PLT COUNT & AUTO [id number] 15:08:00 Test Item Value Reference Range Interpretation Comments WHITE BLOOD CELL COUNT (BEAKER) 4.8 K/ L 3.5-10.5 (test code = 775) RED BLOOD CELL COUNT (BEAKER) 3.76 M/ L 3.93-5.22 L (test code = 761) HEMOGLOBIN (BEAKER) (test code = 11.8 GM/DL 11.2-15.7 410) HEMATOCRIT (BEAKER) (test code = 35.9 % 34.1-44.9 411) MEAN CORPUSCULAR VOLUME (BEAKER) 95.5 fL 79.4-94.8 H (test code = 753) MEAN CORPUSCULAR HEMOGLOBIN 31.4 pg 25.6-32.2 (BEAKER) (test code = 751) MEAN CORPUSCULAR HEMOGLOBIN CONC 32.9 GM/DL 32.2-35.5 (BEAKER) (test code = 752) RED CELL DISTRIBUTION WIDTH 15.6 % 11.7-14.4 H (BEAKER) (test code = 412) PLATELET COUNT (BEAKER) (test 112 K/CU MM 150-450 L code = 756) MEAN PLATELET VOLUME (BEAKER) 12.3 fL 9.4-12.3 (test code = 754) NUCLEATED RED BLOOD CELLS 0 /100 WBC 0-0 (BEAKER) (test code = 413) NEUTROPHILS RELATIVE PERCENT 48 % (BEAKER) (test code = 429) LYMPHOCYTES RELATIVE PERCENT 34 % (BEAKER) (test code = 430) MONOCYTES RELATIVE PERCENT 12 % (BEAKER) (test code = 431) EOSINOPHILS RELATIVE PERCENT 4 % (BEAKER) (test code = 432) BASOPHILS RELATIVE PERCENT 2 % (BEAKER) (test code = 437) NEUTROPHILS ABSOLUTE COUNT 2.28 K/ L 1.56-6.13 (BEAKER) (test code = 670) LYMPHOCYTES ABSOLUTE COUNT 1.62 K/ L 1.18-3.74 (BEAKER) (test code = 414) MONOCYTES ABSOLUTE COUNT (BEAKER) 0.57 K/ L 0.24-0.36 H (test code = 415) EOSINOPHILS ABSOLUTE COUNT 0.21 K/ L 0.04-0.36 (BEAKER) (test code = 416) BASOPHILS ABSOLUTE COUNT (BEAKER) 0.07 K/ L 0.01-0.08 (test code = 417) IMMATURE GRANULOCYTES-RELATIVE 0 % 0-1 PERCENT (BEAKER) (test code = 2801) BONE AND/OR JOINT IMAGING, WHOLE [id number] 16:56:00Location->[facility] HospitalFINAL REPORT PROCEDURE: BONE SCAN, WHOLE BODY CPT CODE: 92877 INDICATION: HCC, cirrhosis PROTOCOL: 21.3 mCi of Tc-99m MDP was injected intravenously. Whole body and selected spot images were obtained approximately 3 hours later. FINDINGS: Moderate to intensely increased tracer activity in the cervical and lumbar spine is similar in appearance compared to 06/2016 bone scan. Mild to moderately increased tracer activity in the sternum from shoulders,elbows, hands, sacroiliac joints, knees, and feet (greater on the left). Contamination artifact posterior to the skull noted on whole body scans is removed on spot imaging. IMPRESSION: Abnormal whole body bone scan. 1.Stable tracer activity in the cervical and lumbar spine favors degenerative jacquard loom card changer metastatic disease.2.Degenerative changes noted in the axial and appendicular skeleton. 3. There is no metastatic pattern Images for comparison/correlation were CT chest/abdomen 05/2017, MRI abdomen 10/2016, bone scan of 06/2016. Signed: Michael Abernathy MDReport Verified Date/Time: 06/05/2017 16:56:04 Reading Location: [address] Reading Room CT, ABDOMEN, [id number] 15:02:00Liver Prctocol-Triple PhaseLocation->[facility] HospitalFINAL REPORT CT OF THE CHEST AND ABDOMEN CLINICAL HISTORY: HCC, cirrhosis TECHNIQUE: CT of the chest and abdomen is performed without intravenous contrast administration. CT of the abdomen is also performed with contrast. This exam was performed according to our departmental dose- optimization program which includes automated exposure control, adjustment of the mA and/or kV according to patient size and/or use of iterative reconstruction technique. COMPARISON FILM: Chest CT from 10/31/2016 DISCUSSION: LINES/TUBES: None. LUNGS/AIRWAYS: Minimal subsegmental bibasilar atelectasis. No new discrete nodule or mass. Trachea and major airways are clear.PLEURA: No effusion or pneumothorax.HEART AND MEDIASTINUM: Thyroid is unremarkable. No mediastinal or hilar lymphadenopathy. Coronary artery calcifications. Scattered atherosclerotic calcifications in the thoracic aorta. HEPATOBILIARY: Cirrhotic morphology of the liver. Patent TIPS. Findings of prior chemoembolization in segment VII without suspicious residual enhancement. The TACE cavity measures 1.1 cm. There are scattered smallfoci of enhancement in segment VII without definite washout. No new suspicious liver lesion identified. Gallbladder surgically absent.PANCREAS: No pancreatic ductal dilation. No solid pancreatic lesion. SPLEEN: The spleen is normal in size. ADRENALS: No nodule. KIDNEYS/URETERS: No hydronephrosis or hydroureter. No solid lesion. GI TRACT: No bowel wall thickening or distention. PERITONEUM/RETROPERITONEUM: No free fluid or free air.LYMPH NODES: No upper abdominal, retroperitoneal, mesenteric, or pelvic lymphadenopathy.VESSELS: Main portal vein is patent measuring 1.7 cm. The splenic vein and SMV are patent. BONES AND SOFT TISSUES: Mild degenerative changes in the lower lumbar spine. No destructive osseous lesion. IMPRESSION:1. No specific findings of thoracic metastatic disease.2. Findings of priorTACE in segment VII of the liver. No findings of recurrent disease. No new suspicious liver lesion.3. Cirrhosis and patent TIPS. Signed: Ahmet Ratliff MDReport Verified Date/Time: 06/05/2017 15:02:52 Reading Location: [facility] C013Y CT Body Reading Room CT, CHEST, WITHOUT [id number] 15:02:00Location->[facility] HospitalFINAL REPORT CT OF THE CHEST AND ABDOMEN CLINICAL HISTORY: HCC, cirrhosis TECHNIQUE: CT of the chest and abdomen is performed without intravenous contrast administration. CT of the abdomen is also performed with contrast. This exam was performed according to our departmental dose-optimization program which includes automated exposure control, adjustment of the mA and/or kV according to patient size and/or use of iterative reconstruction technique. COMPARISON FILM: Chest CT from 10/31/2016 DISCUSSION: LINES/TUBES: None. LUNGS/AIRWAYS: Minimal subsegmental bibasilar atelectasis. No new discrete nodule or mass. Trachea and major airways are clear.PLEURA: No effusion or pneumothorax.HEART AND MEDIASTINUM: Thyroid is unremarkable. No mediastinal or hilar lymphadenopathy. Coronary artery calcifications. Scattered atherosclerotic calcifications in the thoracic aorta. HEPATOBILIARY: Cirrhotic morphology of the liver. Patent TIPS. Findings of prior chemoembolization in segment VII without suspicious residual enhancement. The TACE cavity measures 1.1 cm. There are scattered smallfoci of enhancement in segment VII without definite washout. No new suspicious liver lesion identified. Gallbladder surgically absent.PANCREAS: No pancreatic ductal dilation. No solid pancreatic lesion. SPLEEN: The spleen is normal in size. ADRENALS: No nodule. KIDNEYS/URETERS: No hydronephrosis or hydroureter. No solid lesion. GI TRACT: No bowel wall thickening or distention. PERITONEUM/RETROPERITONEUM: No free fluid or free air.LYMPH NODES: No upper abdominal, retroperitoneal, mesenteric, or pelvic lymphadenopathy.VESSELS: Main portal vein is patent measuring 1.7 cm. The splenic vein and SMV are patent. BONES AND SOFT TISSUES: Mild degenerative changes in the lower lumbar spine. No destructive osseous lesion. IMPRESSION:1. No specific findings of thoracic metastatic disease.2. Findings of priorTACE in segment VII of the liver. No findings of recurrent disease. No new suspicious liver lesion.3. Cirrhosis and patent TIPS. Signed: Ahmet Ratliff MDReport Verified Date/Time: 06/05/2017 15:02:52 Reading Location: [facility] C0Y CT Body Reading Room ALPHA FETOPROTEIN (AFP), TUMOR [id number] 14:15:00 Test Item Value Reference Range Interpretation Comments ALPHA-FETOPROTEIN (BEAKER) (test 7.2 ng/mL <10.0 code = 1094) COMPREHENSIVE METABOLIC [id number] 14:02:00 Test Item Value Reference Range Interpretation Comments TOTAL PROTEIN 6.6 gm/dL 6.0-8.3 (BEAKER) (test code = 770) ALBUMIN (BEAKER) 3.4 g/dL 3.5-5.0 L (test code = 1145) ALKALINE PHOSPHATASE 157 U/L 40-150 H (BEAKER) (test code = 346) BILIRUBIN TOTAL 1.2 mg/dL 0.2-1.2 (BEAKER) (test code = 377) SODIUM (BEAKER) (test 136 meq/L 136-145 code = 381) POTASSIUM (BEAKER) 3.9 meq/L 3.5-5.1 (test code = 379) CHLORIDE (BEAKER) 102 meq/L 98-107 (test code = 382) CO2 (BEAKER) (test 26 meq/L 22-29 code = 355) BLOOD UREA NITROGEN 6 mg/dL 7-21 L (BEAKER) (test code = 354) CREATININE (BEAKER) 0.76 mg/dL 0.57-1.25 (test code = 358) GLUCOSE RANDOM 248 mg/dL 70-105 H (BEAKER) (test code = 652) CALCIUM (BEAKER) 8.8 mg/dL 8.4-10.2 (test code = 697) AST (SGOT) (BEAKER) 40 U/L 5-34 H (test code = 353) ALT (SGPT) (BEAKER) 26 U/L 6-55 (test code = 347) EGFR (BEAKER) (test 74 mL/min/1.73 ESTIMA GERMÁN GFR IS code = 1092) sq m NOT ACCURATE CREATININE CLEARANCE IN PREDICTING GLOMERULAR FILTRATION RATE . ESTIMATED GFR I S NOT APPLICABLE FOR DIALYSIS PATIEN TS. CBC W/PLT COUNT & AUTO [id number] 13:25:00 Test Item Value Reference Range Interpretation Comments WHITE BLOOD CELL COUNT (BEAKER) 5.1 K/ L 3.5-10.5 (test code = 775) RED BLOOD CELL COUNT (BEAKER) 3.70 M/ L 3.93-5.22 L (test code = 761) HEMOGLOBIN (BEAKER) (test code = 11.5 GM/DL 11.2-15.7 410) HEMATOCRIT (BEAKER) (test code = 34.3 % 34.1-44.9 411) MEAN CORPUSCULAR VOLUME (BEAKER) 92.7 fL 79.4-94.8 (test code = 753) MEAN CORPUSCULAR HEMOGLOBIN 31.1 pg 25.6-32.2 (BEAKER) (test code = 751) MEAN CORPUSCULAR HEMOGLOBIN CONC 33.5 GM/DL 32.2-35.5 (BEAKER) (test code = 752) RED CELL DISTRIBUTION WIDTH 15.3 % 11.7-14.4 H (BEAKER) (test code = 412) PLATELET COUNT (BEAKER) (test 100 K/CU MM 150-450 L code = 756) MEAN PLATELET VOLUME (BEAKER) 11.5 fL 9.4-12.3 (test code = 754) NUCLEATED RED BLOOD CELLS 0 /100 WBC 0-0 (BEAKER) (test code = 413) NEUTROPHILS RELATIVE PERCENT 46 % (BEAKER) (test code = 429) LYMPHOCYTES RELATIVE PERCENT 35 % (BEAKER) (test code = 430) MONOCYTES RELATIVE PERCENT 13 % (BEAKER) (test code = 431) EOSINOPHILS RELATIVE PERCENT 3 % (BEAKER) (test code = 432) BASOPHILS RELATIVE PERCENT 1 % (BEAKER) (test code = 437) NEUTROPHILS ABSOLUTE COUNT 2.34 K/ L 1.56-6.13 (BEAKER) (test code = 670) LYMPHOCYTES ABSOLUTE COUNT 1.78 K/ L 1.18-3.74 (BEAKER) (test code = 414) MONOCYTES ABSOLUTE COUNT (BEAKER) 0.67 K/ L 0.24-0.36 H (test code = 415) EOSINOPHILS ABSOLUTE COUNT 0.17 K/ L 0.04-0.36 (BEAKER) (test code = 416) BASOPHILS ABSOLUTE COUNT (BEAKER) 0.05 K/ L 0.01-0.08 (test code = 417) IMMATURE GRANULOCYTES-RELATIVE 1 % 0-1 PERCENT (BEAKER) (test code = 2801) OLEU-[id number] 12:17:00 Test Item Value Reference Range Interpretation Comments POC-CREATININE 0.6 mg/dL 0.6-1.3 TESTED AT [facility] [address] ([facility]) (test [place] code = 8027) 00008 POC-EGFR (BEAKER) 98 mL/min/1.73M2 (test code = 8110) CHEM [id number] 08:25:0092[facility] UMRQF6459-63-00 08:25:003.3 [facility] UCCMQ3981-63-50 08:25:58653Vvbkmtvf HermannCHEM PANEL 2017-01-11 08:25:53481Bnnhsqme HermannCHEM KZSST8972-10-99 08:25:008.3[facility]annCHE[facility] FPBDP1244-58-20 08:25:0012.3[facility]annCHEM BUAKT6592-16-66 08:25:0030[facility]annCHEM YFMVM5143-86-35 08:25:84104Ikrdzmpw HermannCHEM SQPHD6759-55-94 08:25:007[facility]annCHEM CXSAT6715-70-45 08:25:000.56 [facility] VmdrhjzMGGCJRNLEW7858-35-84 08:25:00 Test Item Value Reference Range Interpretation Comments PT (test code = PT) 16.1 s 12.0-14.7 [facility] ZscsknmBWAUIEQXLT1125-16-37 08:25:001.26[facility]annCHEM PANEL 2017-01-11 05:31:003.0[facility]annCHEM NTMSA8872-03-23 05:31:001.4[facility] HqrlryrZOCGPLDQXF5671-41-64 05:31:95255Fapplroh UazunhjNSCYUZMJPX5029-87-25 05:31:009.2[facility] KdaqsxiKSFBWYNTKC9032-54-20 05:31:0014.7[facility] NPDADYEOIH7645-27-03 05:31:0033.9[facility] YtwyxzmNAQWFNJJPK3576-68-02 05:31:00 Test Item Value Reference Range Interpretation Comments MCH (test code = MCH) 31.6 pg 27.0-31.0 [facility] WdxvadvZEIFDWHOMU4569-02-79 05:31:0093.3[facility]annHEMATOLOGY 2017-01-11 05:31:0010.6[facility] SlinnadFCWWAYPUQS0684-56-27 05:31:006.9[facility] TnfvbjnBHBMUCTXHV9523-98-08 05:31:0031.2[facility] DmlyltuGNMJUBMJTH5091-48-99 05:31:003.34[facility] NvqzhgcSEUPHPIPVY5785-37-70 05:31:0056.2[facility] HXXFWMUTTR7477-51-41 05:31:0026.0[facility] QekbhbiTIEPRYDUSU2574-26-08 05:31:00 0.2[facility] BeqbyluRAMIAUAAOR4815-51-56 05:31:001.8[facility]annHEMATOLOGY 2017-01-11 05:31:001.0[facility] FudmalrVXOXEFBORT7565-28-98 05:31:000.7[facility] RlzpxliFDKPRFVLOR3650-96-60 05:31:0014.1[facility] EuhvtizEYGJBMEOEO0519-95-69 05:31:003.0[facility] EsmteieGJLLNSNRDR9177-79-93 05:31:003.9[facility]annCHEM ZJXOB9420-85-94 06:35:002.4[facility]annCHEM OVGJP7501-06-83 06:35:001.8 [facility]annCHEM GHKTH5380-77-87 06:35:0063[facility]annCHEM PANEL 2017-01-10 06:35:0027[facility]annCHEM DBBYQ1246-92-26 06:35:0099[facility]annCHEM VGWRV1460-62-85 06:35:008.7[facility]annCHEM FRPFV9415-69-74 06:35:0013.3[facility]annCHEM OWIPL5189-80-61 06:35:71763Ilggitam HermannCHEM MPKTE7658-67-59 06:35:15398Nnmtvjyp HermannCHEM PDDGH0752-01-44 06:35:000.91 [facility]annCHE[facility] LYBHG7623-30-38 06:35:003.3[facility]annCHEM PANEL 2017-01-10 06:35:008[facility] GpgauqhIALWXDMNRD0351-71-64 06:35:00 Test Item Value Reference Range Interpretation Comments MCH (test code = MCH) 31.9 pg 27.0-31.0 [facility] TpudfbeQDQMVMFHFO2040-52-05 06:35:77784Gzhqswxh HermannHEMATOLOGY 2017-01-10 06:35:009.4[facility] RbngnqvDFPYEBNRDG7342-09-30 06:35:0034.5[facility] EwwshzuCHKSVPIHRY0687-63-00 06:35:0014.8[facility] AjvopzhKVJTVBMSUD5401-71-45 06:35:0035.1[facility] QtyqasjEGHROCBAEB4945-59-50 06:35:007.6[facility] LCLDORXLLE6767-65-47 06:35:003.80[facility] ZvdbogdYQBGKEHBAD3659-74-36 06:35:00 12.1[facility] YmdyxqrDKSQTXPXJG6908-25-31 06:35:0092.5[facility]annHEMATOLOGY 2017-01-10 06:35:001.19[facility] EqhuevrTEHNUOJKCL1830-14-05 06:35:00 Test Item Value Reference Range Interpretation Comments PT (test code = PT) 15.4 s 12.0-14.7 [facility] JsusnkeCIPOTGMJTI6626-23-98 06:35:0027.4[facility] HermannHEMATOLOGY 2017-01-10 06:35:0013.0[facility] ZzczlgbUFRPPDYDWQ9885-65-17 06:35:003.3[facility] HfvslmmXMCLXQVTZQ5727-82-52 06:35:0055.8[facility] MnsbczoNFYPUTVSLF5849-29-83 06:35:000.5[facility] PirmwpiPYPNRPYYSV8610-96-89 06:35:002.1[facility] PKSZNLQEQZ0794-76-35 06:35:001.0[facility] OrmrmbzERFRFVQMVH8080-41-79 06:35:000.3 [facility] OdxxfieLHCNQNTJNQ3675-26-60 06:35:004.2[facility] HermannCHEM PANEL 2017-01-09 11:19:002.5[facility]annCHEM TFYHT1359-29-30 11:19:001.6[facility]annCHEM WNRSK6927-85-84 11:19:0089[facility]annCHEM HVIQM8257-01-94 11:19:008[facility]annCHEM WRKDC8588-46-21 11:19:04248Iovnwbbu HermannCHEM KFUGB8289-11-64 11:19:000.62[facility]annCHEM SXCLZ0336-31-31 11:19:0098 [facility]annCHEM OTVCT5625-71-69 11:19:0027[facility]annCHEM PANEL 2017-01-09 11:19:008.5[facility]annCHEM ZLAQN4252-34-19 11:19:003.6[facility]annCHEM ZHZAX5791-79-42 11:19:94531Fdokeyqo HermannCHEM BFGFG7410-03-54 11:19:0013.[facility] TgtabkuNFWPECBUJX1728-30-49 11:19:000.1[facility] XCIRJGMLSV8641-82-80 11:19:000.3[facility] XqeernmAHVJWUVGLG1886-41-51 11:19:001.0 [facility] KckauieGQRUVBKGCN6764-67-84 11:19:002.0[facility] HermannHEMATOLOGY 2017-01-09 11:19:003.8[facility] NntuvdqZLHAJGSSAT2723-90-17 11:19:0013.emorial WbfarslSNPWRUQGRF6975-53-47 11:19:0027.2[facility] TgtkhrkMYLJSUTYMC3228-09-89 11:19:004.0[facility] DnywwnzBVVTWYYZUR3835-37-91 11:19:0054.7[facility] UPNMOHVAEF7357-24-41 11:19:000.7[facility] BnabbqjINRDASFXDC9161-09-35 11:19:00 Test Item Value Reference Range Interpretation Comments PT (test code = PT) 15.3 s 12.0-14.7 [facility] BupbodbNHWIYQJJZA0710-12-97 11:19:001.18[facility] HermannHEMATOLOGY 2017-01-09 11:19:41971Cquxgbuc YjzaugwZCUPSRIHLB9354-81-44 11:19:0014.7[facility] ZzmnwcuLFHWPPBPKG3620-22-81 11:19:009.emorial TjkuriwJVOBBPEVFW0627-37-82 11:19:0034.[facility]orial JeledxyUCWLSGJCRU6916-07-15 11:19:0092.1[facility] RYCNEFHNUU9279-71-54 11:19:0033.2[facility] WyjbfruMMUXJILGNY3639-39-59 11:19:00 Test Item Value Reference Range Interpretation Comments MCH (test code = MCH) 31.9 pg 27.0-31.0 [facility] QjrqzedGWZLXODOGQ5783-80-29 11:19:003.60[facility] HermannHEMATOLOGY 2017-01-09 11:19:0011.5[facility] WzljjpdVZXFRRAOWI6869-86-07 11:19:007.2[facility] HermannCHEM REXEI1010-78-28 01:08:006.2[facility] HermannCHEM AOVNA5177-48-90 01:08:002.7[facility] HermannCHEM YVVZX6861-71-07 01:08:0024[facility] HermannCHEM DZZVG9849-33-01 01:08:0040[facility]annCHEM BAZRW9767-66-10 01:08:78763 [facility]annCHEM YLVRV9723-60-37 01:08:001.8[facility] HermannCHEM PANEL 2017-01-09 01:08:000.4[facility] HermannCHEM VAYMQ0104-46-73 01:08:003.5[facility]annCHEM UASIU4567-83-11 01:08:000.8[facility]annCHEM NIHLA2605-00-10 01:08:001.4[facility] VoflnmiBWIIEHJFPF4130-25-89 01:08:000.1[facility] XUQMHHFKSE3532-72-73 01:08:00 Test Item Value Reference Range Interpretation Comments Pos CO Value (test code = Pos CO 0.400 1 Value) [facility] YwqxnvcAAOUHVEVZZ7349-92-42 01:08:00Negative 1(01/08/17 8:08 PM)[facility] WuyqhroFEFYPYSHUH9831-10-99 01:08:00 Test Item Value Reference Range Interpretation Comments Pat Od Value (test code = Pat Od 0.082 1 Value) [facility]annCHEM GCRVE7645-71-80 17:33:0028.6[facility] HermannPARATHYROID LOVDJLF1506-90-77 17:33:0033.4[facility] HermannCHEM WVGPI9339-46-15 11:20:0017 [facility]annCHEM MIKMD9394-21-01 11:20:000.8[facility] HermannCHEM PANEL 2017-01-05 11:20:003.5[facility] HermannCHEM QWMMC2806-88-55 11:20:0032[facility] HermannCHEM KBPDV5885-70-20 11:20:23732Dswbkmtc HermannCHEM QVORA9097-96-01 11:20:0058[facility] HermannCHEM CVZZM3035-81-84 11:20:006.3[facility] HermannCHEM QNUWO8830-29-83 11:20:002.8[facility] HermannCHEM TGOTM9978-87-85 11:20:001.6 [facility] OyhnxttWDWMULREEP8663-08-46 11:20:000.1[facility] HermannSPECIAL WJPKTFMIL6962-62-28 11:20:008.7[facility] RjjpqcwIBAOCAMRVS8573-58-95 16:27:00 Test Item Value Reference Range Interpretation Comments PTT (test code = PTT) 30.9 s 22.9-35.8 [facility]annCHEM KNDQQ0438-80-72 13:30:000.4[facility] HermannCHEM PANEL 2017-01-04 13:30:001.6[facility] HermannCHEM OXWPT6847-32-24 13:30:000.8[facility] HermannCHEM YJRQU1006-96-01 13:30:004.0[facility] HermannCHEM FQETI7231-73-18 13:30:001.2[facility] HermannCHEM WLQYV7573-56-18 13:30:007.4[facility] HermannCHEM NLAVO5572-15-20 13:30:76004Jeffqpnq HermannCHEM QVDLR1656-97-92 13:30:003.4 [facility]annCHEM LDBRW7108-88-34 13:30:0039[facility] HermannCHEM PANEL 2017-01-04 13:30:0058[facility] HermannBLOOD BANK JGSQYJF7937-90-21 10:12:00 Negative (01/04/17 5:12 AM)[facility] ByjiyjrNHHWXOLODV7611-01-14 09:39:40 Test Item Value Reference Range Interpretation Comments K-time Rapid (test code = K-time 1.0 min 0.6-2.3 Rapid) [facility]HMYSPEKKK1551-92-49 09:39:40 Test Item Value Reference Range Interpretation Comments ACT (TEG) Rapid (test code = ACT (TEG) 97 s 86-118 Rapid) [facility] HospitalXpcobemOSCMDYAWAD2391-33-42 09:39:40 Test Item Value Reference Range Interpretation Comments R-time Rapid (test code = R-time 0.5 min 0.4-0.7 Rapid) [facility] HospitalNlueasuHMRTNRWLIC6130-25-64 09:39:40 Test Item Value Reference Range Interpretation Comments Split Point Rapid (test code = Split 0.3 min Point Rapid) [facility] HospitalKisqqboAXIIDDJTFQ3210-74-60 09:39:40 Test Item Value Reference Range Interpretation Comments Angle Rapid (test code = Angle 78 degrees 64-80 Rapid) [facility] HospitalRhvmknoYIZDMBUOAS5276-71-47 09:39:40 Test Item Value Reference Range Interpretation Comments Max Amplitude Rapid (test code = Max 62 mm 52-71 Amplitude Rapid) [facility] HospitalTgopnozVUPMOGSFKY0732-11-08 09:39:400.0[facility]ertonHEMATOLOGY 2017-01-04 09:39:408.2[facility] HermannALPHA FETOPROTEIN (AFP), TUMOR MARKER 2016-10-31 15:15:00 Test Item Value Reference Range Interpretation Comments ALPHA-FETOPROTEIN (BEAKER) (test 8.8 ng/mL <10.0 code = 1094) Effective 03/09/2014: Reference Range ChangeNew: <10.0 Previous: 0.0-8.0 COMPREHENSIVE METABOLIC [id number] 14:52:00 Test Item Value Reference Range Interpretation Comments TOTAL PROTEIN 7.8 gm/dL 6.0-8.3 (BEAKER) (test code = 770) ALBUMIN (BEAKER) 3.8 g/dL 3.5-5.0 (test code = 1145) ALKALINE PHOSPHATASE 155 U/L 40-150 H (BEAKER) (test code = 346) BILIRUBIN TOTAL 1.6 mg/dL 0.2-1.2 H (BEAKER) (test code = 377) SODIUM (BEAKER) (test 137 meq/L 136-145 code = 381) POTASSIUM (BEAKER) 3.6 meq/L 3.5-5.1 (test code = 379) CHLORIDE (BEAKER) 100 meq/L 98-107 (test code = 382) CO2 (BEAKER) (test 26 meq/L 22-29 code = 355) BLOOD UREA NITROGEN 12 mg/dL 7-21 (BEAKER) (test code = 354) CREATININE (BEAKER) 0.83 mg/dL 0.57-1.25 (test code = 358) GLUCOSE RANDOM 250 mg/dL 70-105 H (BEAKER) (test code = 652) CALCIUM (BEAKER) 9.6 mg/dL 8.4-10.2 (test code = 697) AST (SGOT) (BEAKER) 54 U/L 5-34 H (test code = 353) ALT (SGPT) (BEAKER) 31 U/L 6-55 (test code = 347) EGFR (BEAKER) (test 67 mL/min/1.73 ESTIMA GERMÁN GFR IS code = 1092) sq m NOT ACCURATE CREATININE CLEARANCE IN PREDICTING GLOMERULAR FILTRATION RATE . ESTIMATED GFR I S NOT APPLICABLE FOR DIALYSIS PATIEN TS. PROTHROMBIN [id number] 14:40:00 Test Item Value Reference Range Interpretation Comments PROTIME (BEAKER) (test code = 14.7 seconds 11.7-14.7 759) INR (BEAKER) (test code = 370) 1.2 <=5.9 RECOMMENDED COUMADIN/WARFARIN INR THERAPY RANGESSTANDARD DOSE: 2.0 - 3.0 Includes: PROPHYLAXIS forvenous thrombosis, systemic embolization; TREATMENT for venous thrombosis and/or pulmonary embolus.HIGH RISK: Target INR is 2.5-3.5 for patients with mechanical heart valves.CBC W/PLT COUNT & AUTO DIFFERENTIAL 2016-10-31 14:23:00 Test Item Value Reference Range Interpretation Comments WHITE BLOOD CELL COUNT (BEAKER) 5.5 K/ L 4.0-10.0 (test code = 775) RED BLOOD CELL COUNT (BEAKER) 4.69 M/ L 4.00-5.00 (test code = 761) HEMOGLOBIN (BEAKER) (test code = 15.2 GM/DL 12.0-15.0 H 410) HEMATOCRIT (BEAKER) (test code = 44.7 % 36.0-45.0 411) MEAN CORPUSCULAR VOLUME (BEAKER) 95.4 fL 82.0-99.0 (test code = 753) MEAN CORPUSCULAR HEMOGLOBIN 32.4 pg 27.0-33.0 (BEAKER) (test code = 751) MEAN CORPUSCULAR HEMOGLOBIN CONC 34.0 GM/DL 32.0-36.0 (BEAKER) (test code = 752) RED CELL DISTRIBUTION WIDTH 12.7 % 10.3-14.2 (BEAKER) (test code = 412) PLATELET COUNT (BEAKER) (test 114 K/CU MM 150-430 L code = 756) MEAN PLATELET VOLUME (BEAKER) 9.6 fL 6.5-10.5 (test code = 754) NUCLEATED RED BLOOD CELLS 0 /100 WBC 0-0 (BEAKER) (test code = 413) NEUTROPHILS RELATIVE PERCENT 53 % (BEAKER) (test code = 429) LYMPHOCYTES RELATIVE PERCENT 34 % (BEAKER) (test code = 430) MONOCYTES RELATIVE PERCENT 10 % (BEAKER) (test code = 431) EOSINOPHILS RELATIVE PERCENT 2 % (BEAKER) (test code = 432) BASOPHILS RELATIVE PERCENT 1 % (BEAKER) (test code = 437) NEUTROPHILS ABSOLUTE COUNT 2.91 K/ L 1.80-8.00 (BEAKER) (test code = 670) LYMPHOCYTES ABSOLUTE COUNT 1.84 K/ L 1.48-4.50 (BEAKER) (test code = 414) MONOCYTES ABSOLUTE COUNT (BEAKER) 0.54 K/ L 0.00-1.30 (test code = 415) EOSINOPHILS ABSOLUTE COUNT 0.11 K/ L 0.00-0.50 (BEAKER) (test code = 416) BASOPHILS ABSOLUTE COUNT (BEAKER) 0.05 K/ L 0.00-0.20 (test code = 417) [id number] 14:11:00 Test Item Value Reference Range Interpretation Comments POC-CREATININE 0.6 mg/dL 0.6-1.3 TESTED AT [facility] 6720 (BEAKER) (test [place] code = 9948) [address] POC-EGFR (BEAKER) 98 mL/min/1.73M2 (test code = 4040) (MANUAL DIFFERENTIAL)2016-08-14 08:15:00 Test Item Value Reference Range Interpretation Comments NEUTROPHILS - REL (DIFF) (BEAKER) 46 % (test code = 1359) LYMPHOCYTES - REL (DIFF) (BEAKER) 40 % (test code = 1360) MONOCYTES - REL (DIFF) (BEAKER) 10 % (test code = 1361) EOSINOPHILS - REL (DIFF) (BEAKER) 3 % (test code = 1362) BANDS - REL (DIFF) (BEAKER) (test 1 % 0-10 code = 1348) NEUTROPHILS - ABS (DIFF) (BEAKER) 2.48 K/ L 1.80-8.00 (test code = 1365) LYMPHOCYTES - ABS (DIFF) (BEAKER) 2.16 K/ L 1.48-4.50 (test code = 1366) MONOCYTES - ABS (DIFF) (BEAKER) 0.54 K/ L 0.00-1.30 (test code = 1367) EOSINOPHILS - ABS (DIFF) (BEAKER) 0.16 K/ L 0.00-0.50 (test code = 1368) BANDS-ABS (DIFF) (BEAKER) (test 0.1 K/ L 0.0-0.8 code = 1349) TOTAL COUNTED (BEAKER) (test code = 100 1351) BANDS + SEGMENTED NEUTROPHILS 2.54 (BEAKER) (test code = 1352) PLT MORPHOLOGY (BEAKER) (test code Normal = 486) RBC MORPHOLOGY (BEAKER) (test code Normal = 762) ATYPICAL LYMPHS(BEAKER) (test code Present = 3638) COMPREHENSIVE METABOLIC [id number] 07:38:00 Test Item Value Reference Range Interpretation Comments TOTAL PROTEIN 7.9 gm/dL 6.0-8.3 Specimen marke dly (BEAKER) (test code = hemoly zed 770) ALBUMIN (BEAKER) 3.7 g/dL 3.5-5.0 Specimen ma rkedly (test code = 1145) hemolyzed ALKALINE PHOSPHATASE 166 U/L 40-150 H (BEAKER) (test code = 346) BILIRUBIN TOTAL 1.0 mg/dL 0.2-1.2 Specimen mar kedly (BEAKER) (test code = hemoly zed 377) SODIUM (BEAKER) (test 136 meq/L 136-145 code = 381) POTASSIUM (BEAKER) 5.4 meq/L 3.5-5.1 H Specimen markedly (test code = 379) hemolyzed CHLORIDE (BEAKER) 104 meq/L 98-107 (test code = 382) CO2 (BEAKER) (test 22 meq/L 22-29 code = 355) BLOOD UREA NITROGEN 8 mg/dL 7-21 (BEAKER) (test code = 354) CREATININE (BEAKER) 0.83 mg/dL 0.57-1.25 Specimen markedly (test code = 358) hemolyzed GLUCOSE RANDOM 238 mg/dL 70-105 H (BEAKER) (test code = 652) CALCIUM (BEAKER) 9.0 mg/dL 8.4-10.2 (test code = 697) AST (SGOT) (BEAKER) 77 U/L 5-34 H Specimen markedly (test code = 353) hemolyzed ALT (SGPT) (BEAKER) 36 U/L 6-55 Specimen markedly (test code = 347) hemolyzed EGFR (BEAKER) (test 67 mL/min/1.73 ESTIMA GERMÁN GFR IS code = 1092) sq m NOT ACCURATE CREATININE CLEARANCE IN PREDICTING GLOMERULAR FILTRATION RATE . ESTIMATED GFR I S NOT APPLICABLE FOR DIALYSIS PATIEN TS. CBC WITH PLATELET COUNT + MANUAL [id number] 07:03:00 Test Item Value Reference Range Interpretation Comments WHITE BLOOD CELL COUNT (BEAKER) 5.4 K/ L 4.0-10.0 (test code = 775) RED BLOOD CELL COUNT (BEAKER) 4.35 M/ L 4.00-5.00 (test code = 761) HEMOGLOBIN (BEAKER) (test code = 14.5 GM/DL 12.0-15.0 410) HEMATOCRIT (BEAKER) (test code = 41.7 % 36.0-45.0 411) MEAN CORPUSCULAR VOLUME (BEAKER) 95.7 fL 82.0-99.0 (test code = 753) MEAN CORPUSCULAR HEMOGLOBIN 33.3 pg 27.0-33.0 H (BEAKER) (test code = 751) MEAN CORPUSCULAR HEMOGLOBIN CONC 34.8 GM/DL 32.0-36.0 (BEAKER) (test code = 752) RED CELL DISTRIBUTION WIDTH 13.8 % 10.3-14.2 (BEAKER) (test code = 412) PLATELET COUNT (BEAKER) (test 120 K/CU MM 150-430 L code = 756) MEAN PLATELET VOLUME (BEAKER) 9.1 fL 6.5-10.5 (test code = 754) NUCLEATED RED BLOOD CELLS 0 /100 WBC 0-0 (BEAKER) (test code = 413) 0.00PT/[id number] 07:02:00 Test Item Value Reference Range Interpretation Comments PROTIME (BEAKER) (test code = 14.6 seconds 11.7-14.7 759) INR (BEAKER) (test code = 370) 1.2 <=5.9 PARTIAL THROMBOPLASTIN TIME 31.7 seconds 22.5-36.0 (BEAKER) (test code = 760) RECOMMENDED COUMADIN/WARFARIN INR THERAPY RANGESSTANDARD DOSE: 2.0 - 3.0 Includes: PROPHYLAXIS forvenous thrombosis, systemic embolization; TREATMENT for venous thrombosis and/or pulmonary embolus.HIGH RISK: Target INR is 2.5-3.5 for patients with mechanical heart valves.URINE [id number] 09:57:00 Test Item Value Reference Range Interpretation Comments CULTURE (BEAKER) (test code = See comment 1095) <10,000 col/mL enteric organisms of >2 types. No further workup performed. Multiple organisms suggestive of colonization or contamination. Repeat collection recommended.>100,000 col/mL skin floraCYTOMEGALOVIRUS ANTIBODY, [id number] 15:23:00 Test Item Value Reference Range Interpretation Comments CYTOMEGALOVIRUS IGG ANTIBODY Positive (BEAKER) (test code = 790) CYTOMEGALOVIRUS ANTIBODY, [id number] 15:23:00 Test Item Value Reference Range Interpretation Comments CYTOMEGALOVIRUS IGM ANTIBODY Negative (BEAKER) (test code = 816) URINALYSIS W/ REFLEX URINE [id number] 17:13:00 Test Item Value Reference Range Interpretation Comments COLOR (BEAKER) (test code = 470) Yellow CLARITY (BEAKER) (test code = 469) Hazy SPECIFIC GRAVITY UA (BEAKER) (test 1.010 1.001-1.035 code = 468) PH UA (BEAKER) (test code = 467) 7.5 5.0-8.0 PROTEIN UA (BEAKER) (test code = Negative Negative 464) GLUCOSE UA (BEAKER) (test code = Negative Negative 365) KETONES UA (BEAKER) (test code = Negative Negative 371) BILIRUBIN UA (BEAKER) (test code = Negative Negative 462) BLOOD UA (BEAKER) (test code = 461) Negative Negative NITRITE UA (BEAKER) (test code = Negative Negative 465) LEUKOCYTE ESTERASE UA (BEAKER) Moderate Negative A (test code = 466) UROBILINOGEN UA (BEAKER) (test code 0.2 mg/dL 0.2-1.0 = 463) RBC UA (BEAKER) (test code = 519) 0 /HPF WBC UA (BEAKER) (test code = 520) 2 /HPF MUCUS (BEAKER) (test code = 1574) Rare SQUAMOUS EPITHELIAL (BEAKER) (test 4 /HPF code = 516) SOURCE(BEAKER) (test code = 2795) ALPHA FETOPROTEIN (AFP), TUMOR [id number] 14:34:00 Test Item Value Reference Range Interpretation Comments ALPHA-FETOPROTEIN (BEAKER) (test 7.2 ng/mL <10.0 code = 1094) Effective 03/09/2014: Reference Range ChangeNew: <10.0 Previous: 0.0-8.0CBC W/PLT COUNT & AUTO [id number] 13:34:00 Test Item Value Reference Range Interpretation Comments WHITE BLOOD CELL COUNT (BEAKER) 5.3 K/ L 4.0-10.0 (test code = 775) RED BLOOD CELL COUNT (BEAKER) 4.69 M/ L 4.00-5.00 (test code = 761) HEMOGLOBIN (BEAKER) (test code = 15.6 GM/DL 12.0-15.0 H 410) HEMATOCRIT (BEAKER) (test code = 44.6 % 36.0-45.0 411) MEAN CORPUSCULAR VOLUME (BEAKER) 95.1 fL 82.0-99.0 (test code = 753) MEAN CORPUSCULAR HEMOGLOBIN 33.2 pg 27.0-33.0 H (BEAKER) (test code = 751) MEAN CORPUSCULAR HEMOGLOBIN CONC 35.0 GM/DL 32.0-36.0 (BEAKER) (test code = 752) RED CELL DISTRIBUTION WIDTH 13.4 % 10.3-14.2 (BEAKER) (test code = 412) PLATELET COUNT (BEAKER) (test 114 K/CU MM 150-430 L code = 756) MEAN PLATELET VOLUME (BEAKER) 9.1 fL 6.5-10.5 (test code = 754) NUCLEATED RED BLOOD CELLS 0 /100 WBC 0-0 (BEAKER) (test code = 413) NEUTROPHILS RELATIVE PERCENT 44 % (BEAKER) (test code = 429) LYMPHOCYTES RELATIVE PERCENT 41 % (BEAKER) (test code = 430) MONOCYTES RELATIVE PERCENT 11 % (BEAKER) (test code = 431) EOSINOPHILS RELATIVE PERCENT 3 % (BEAKER) (test code = 432) BASOPHILS RELATIVE PERCENT 1 % (BEAKER) (test code = 437) NEUTROPHILS ABSOLUTE COUNT 2.32 K/ L 1.80-8.00 (BEAKER) (test code = 670) LYMPHOCYTES ABSOLUTE COUNT 2.15 K/ L 1.48-4.50 (BEAKER) (test code = 414) MONOCYTES ABSOLUTE COUNT (BEAKER) 0.56 K/ L 0.00-1.30 (test code = 415) EOSINOPHILS ABSOLUTE COUNT 0.17 K/ L 0.00-0.50 (BEAKER) (test code = 416) BASOPHILS ABSOLUTE COUNT (BEAKER) 0.06 K/ L 0.00-0.20 (test code = 417) 0.00HEPATIC FUNCTION [id number] 13:21:00 Test Item Value Reference Range Interpretation Comments TOTAL PROTEIN (BEAKER) (test code = 7.9 gm/dL 6.0-8.3 770) ALBUMIN (BEAKER) (test code = 1145) 3.8 g/dL 3.5-5.0 BILIRUBIN TOTAL (BEAKER) (test code 1.4 mg/dL 0.2-1.2 H = 377) BILIRUBIN DIRECT (BEAKER) (test 0.5 mg/dL 0.1-0.5 code = 706) ALKALINE PHOSPHATASE (BEAKER) (test 180 U/L 40-150 H code = 346) AST (SGOT) (BEAKER) (test code = 63 U/L 5-34 H 353) ALT (SGPT) (BEAKER) (test code = 39 U/L 6-55 347) BASIC METABOLIC [id number] 13:21:00 Test Item Value Reference Range Interpretation Comments SODIUM (BEAKER) 140 meq/L 136-145 (test code = 381) POTASSIUM (BEAKER) 4.2 meq/L 3.5-5.1 (test code = 379) CHLORIDE (BEAKER) 106 meq/L 98-107 (test code = 382) CO2 (BEAKER) (test 22 meq/L 22-29 code = 355) BLOOD UREA NITROGEN 10 mg/dL 7-21 (BEAKER) (test code = 354) CREATININE (BEAKER) 0.81 mg/dL 0.57-1.25 (test code = 358) GLUCOSE RANDOM 189 mg/dL 70-105 H (BEAKER) (test code = 652) CALCIUM (BEAKER) 9.5 mg/dL 8.4-10.2 (test code = 697) EGFR (BEAKER) (test 69 mL/min/1.73 ESTIMA GERMÁN GFR IS code = 1092) sq m NOT ACCURATE CREATININE CLEARANCE IN PREDICTING GLOMERULAR FILTRATION RATE . ESTIMATED GFR I S NOT APPLICABLE FOR DIALYSIS PATIEN TS. PROTHROMBIN [id number] 13:17:00 Test Item Value Reference Range Interpretation Comments PROTIME (BEAKER) (test code = 15.2 seconds 11.7-14.7 H 759) INR (BEAKER) (test code = 370) 1.2 <=5.9 RECOMMENDED COUMADIN/WARFARIN INR THERAPY RANGESSTANDARD DOSE: 2.0 - 3.0 Includes: PROPHYLAXIS forvenous thrombosis, systemic embolization; TREATMENT for venous thrombosis and/or pulmonary embolus.HIGH RISK: Target INR is 2.5-3.5 for patients with mechanical heart valves.ALPHA FETOPROTEIN (AFP), TUMOR MARKER 2016-07-13 08:24:00 Test Item Value Reference Range Interpretation Comments ALPHA-FETOPROTEIN (BEAKER) (test 7.3 ng/mL <10.0 code = 1094) Effective 03/09/2014: Reference Range ChangeNew: <10.0 Previous: 0.0-8.0 COMPREHENSIVE METABOLIC [id number] 08:04:00 Test Item Value Reference Range Interpretation Comments TOTAL PROTEIN 7.9 gm/dL 6.0-8.3 (BEAKER) (test code = 770) ALBUMIN (BEAKER) 3.8 g/dL 3.5-5.0 (test code = 1145) ALKALINE PHOSPHATASE 207 U/L 40-150 H (BEAKER) (test code = 346) BILIRUBIN TOTAL 1.2 mg/dL 0.2-1.2 (BEAKER) (test code = 377) SODIUM (BEAKER) (test 142 meq/L 136-145 code = 381) POTASSIUM (BEAKER) 3.8 meq/L 3.5-5.1 (test code = 379) CHLORIDE (BEAKER) 108 meq/L 98-107 H (test code = 382) CO2 (BEAKER) (test 23 meq/L 22-29 code = 355) BLOOD UREA NITROGEN 10 mg/dL 7-21 (BEAKER) (test code = 354) CREATININE (BEAKER) 0.74 mg/dL 0.57-1.25 (test code = 358) GLUCOSE RANDOM 139 mg/dL 70-105 H (BEAKER) (test code = 652) CALCIUM (BEAKER) 9.2 mg/dL 8.4-10.2 (test code = 697) AST (SGOT) (BEAKER) 49 U/L 5-34 H (test code = 353) ALT (SGPT) (BEAKER) 32 U/L 6-55 (test code = 347) EGFR (BEAKER) (test 77 mL/min/1.73 ESTIMA GERMÁN GFR IS code = 1092) sq m NOT ACCURATE CREATININE CLEARANCE IN PREDICTING GLOMERULAR FILTRATION RATE . ESTIMATED GFR I S NOT APPLICABLE FOR DIALYSIS PATIEN TS. CBC W/PLT COUNT & AUTO [id number] 08:02:00 Test Item Value Reference Range Interpretation Comments WHITE BLOOD CELL COUNT (BEAKER) 5.4 K/ L 4.0-10.0 (test code = 775) RED BLOOD CELL COUNT (BEAKER) 4.75 M/ L 4.00-5.00 (test code = 761) HEMOGLOBIN (BEAKER) (test code = 15.7 GM/DL 12.0-15.0 H 410) HEMATOCRIT (BEAKER) (test code = 45.2 % 36.0-45.0 H 411) MEAN CORPUSCULAR VOLUME (BEAKER) 95.2 fL 82.0-99.0 (test code = 753) MEAN CORPUSCULAR HEMOGLOBIN 33.1 pg 27.0-33.0 H (BEAKER) (test code = 751) MEAN CORPUSCULAR HEMOGLOBIN CONC 34.7 GM/DL 32.0-36.0 (BEAKER) (test code = 752) RED CELL DISTRIBUTION WIDTH 13.2 % 10.3-14.2 (BEAKER) (test code = 412) PLATELET COUNT (BEAKER) (test 106 K/CU MM 150-430 L code = 756) MEAN PLATELET VOLUME (BEAKER) 8.8 fL 6.5-10.5 (test code = 754) NUCLEATED RED BLOOD CELLS 0 /100 WBC 0-0 (BEAKER) (test code = 413) NEUTROPHILS RELATIVE PERCENT 47 % (BEAKER) (test code = 429) LYMPHOCYTES RELATIVE PERCENT 35 % (BEAKER) (test code = 430) MONOCYTES RELATIVE PERCENT 14 % (BEAKER) (test code = 431) EOSINOPHILS RELATIVE PERCENT 4 % (BEAKER) (test code = 432) BASOPHILS RELATIVE PERCENT 1 % (BEAKER) (test code = 437) NEUTROPHILS ABSOLUTE COUNT 2.50 K/ L 1.80-8.00 (BEAKER) (test code = 670) LYMPHOCYTES ABSOLUTE COUNT 1.86 K/ L 1.48-4.50 (BEAKER) (test code = 414) MONOCYTES ABSOLUTE COUNT (BEAKER) 0.76 K/ L 0.00-1.30 (test code = 415) EOSINOPHILS ABSOLUTE COUNT 0.19 K/ L 0.00-0.50 (BEAKER) (test code = 416) BASOPHILS ABSOLUTE COUNT (BEAKER) 0.05 K/ L 0.00-0.20 (test code = 417) 0.00PROTHROMBIN [id number] 07:57:00 Test Item Value Reference Range Interpretation Comments PROTIME (BEAKER) (test code = 15.1 seconds 11.7-14.7 H 759) INR (BEAKER) (test code = 370) 1.2 <=5.9 RECOMMENDED COUMADIN/WARFARIN INR THERAPY RANGESSTANDARD DOSE: 2.0 - 3.0 Includes: PROPHYLAXIS forvenous thrombosis, systemic embolization; TREATMENT for venous thrombosis and/or pulmonary embolus.HIGH RISK: Target INR is 2.5-3.5 for patients with mechanical heart valves.ALPHA FETOPROTEIN (AFP), TUMOR MARKER 2016-06-26 17:58:00 Test Item Value Reference Range Interpretation Comments ALPHA-FETOPROTEIN (BEAKER) (test 7.2 ng/mL <10.0 code = 1094) Effective 03/09/2014: Reference Range ChangeNew: <10.0 Previous: 0.0-8.0 HEPATIC FUNCTION [id number] 17:38:00 Test Item Value Reference Range Interpretation Comments TOTAL PROTEIN (BEAKER) (test code = 7.9 gm/dL 6.0-8.3 770) ALBUMIN (BEAKER) (test code = 1145) 3.6 g/dL 3.5-5.0 BILIRUBIN TOTAL (BEAKER) (test code 1.4 mg/dL 0.2-1.2 H = 377) BILIRUBIN DIRECT (BEAKER) (test 0.6 mg/dL 0.1-0.5 H code = 706) ALKALINE PHOSPHATASE (BEAKER) (test 182 U/L 40-150 H code = 346) AST (SGOT) (BEAKER) (test code = 47 U/L 5-34 H 353) ALT (SGPT) (BEAKER) (test code = 29 U/L 6-55 347) BASIC METABOLIC [id number] 17:38:00 Test Item Value Reference Range Interpretation Comments SODIUM (BEAKER) 138 meq/L 136-145 (test code = 381) POTASSIUM (BEAKER) 3.8 meq/L 3.5-5.1 (test code = 379) CHLORIDE (BEAKER) 101 meq/L 98-107 (test code = 382) CO2 (BEAKER) (test 26 meq/L 22-29 code = 355) BLOOD UREA NITROGEN 10 mg/dL 7-21 (BEAKER) (test code = 354) CREATININE (BEAKER) 1.00 mg/dL 0.57-1.25 (test code = 358) GLUCOSE RANDOM 327 mg/dL 70-105 H (BEAKER) (test code = 652) CALCIUM (BEAKER) 9.6 mg/dL 8.4-10.2 (test code = 697) EGFR (BEAKER) (test 54 mL/min/1.73 ESTIMA GERMÁN GFR IS code = 1092) sq m NOT ACCURATE CREATININE CLEARANCE IN PREDICTING GLOMERULAR FILTRATION RATE . ESTIMATED GFR I S NOT APPLICABLE FOR DIALYSIS PATIEN TS. COMPREHENSIVE METABOLIC [id number] 17:38:00 Test Item Value Reference Range Interpretation Comments TOTAL PROTEIN 7.9 gm/dL 6.0-8.3 (BEAKER) (test code = 770) ALBUMIN (BEAKER) 3.6 g/dL 3.5-5.0 (test code = 1145) ALKALINE PHOSPHATASE 182 U/L 40-150 H (BEAKER) (test code = 346) BILIRUBIN TOTAL 1.4 mg/dL 0.2-1.2 H (BEAKER) (test code = 377) SODIUM (BEAKER) (test 138 meq/L 136-145 code = 381) POTASSIUM (BEAKER) 3.8 meq/L 3.5-5.1 (test code = 379) CHLORIDE (BEAKER) 101 meq/L 98-107 (test code = 382) CO2 (BEAKER) (test 26 meq/L 22-29 code = 355) BLOOD UREA NITROGEN 10 mg/dL 7-21 (BEAKER) (test code = 354) CREATININE (BEAKER) 1.00 mg/dL 0.57-1.25 (test code = 358) GLUCOSE RANDOM 327 mg/dL 70-105 H (BEAKER) (test code = 652) CALCIUM (BEAKER) 9.6 mg/dL 8.4-10.2 (test code = 697) AST (SGOT) (BEAKER) 47 U/L 5-34 H (test code = 353) ALT (SGPT) (BEAKER) 29 U/L 6-55 (test code = 347) EGFR (BEAKER) (test 54 mL/min/1.73 ESTIMA GERMÁN GFR IS code = 1092) sq m NOT ACCURATE CREATININE CLEARANCE IN PREDICTING GLOMERULAR FILTRATION RATE . ESTIMATED GFR I S NOT APPLICABLE FOR DIALYSIS PATIEN TS. CBC W/PLT COUNT & AUTO [id number] 17:14:00 Test Item Value Reference Range Interpretation Comments WHITE BLOOD CELL COUNT (BEAKER) 5.1 K/ L 4.0-10.0 (test code = 775) RED BLOOD CELL COUNT (BEAKER) 4.72 M/ L 4.00-5.00 (test code = 761) HEMOGLOBIN (BEAKER) (test code = 15.6 GM/DL 12.0-15.0 H 410) HEMATOCRIT (BEAKER) (test code = 45.3 % 36.0-45.0 H 411) MEAN CORPUSCULAR VOLUME (BEAKER) 96.1 fL 82.0-99.0 (test code = 753) MEAN CORPUSCULAR HEMOGLOBIN 33.2 pg 27.0-33.0 H (BEAKER) (test code = 751) MEAN CORPUSCULAR HEMOGLOBIN CONC 34.5 GM/DL 32.0-36.0 (BEAKER) (test code = 752) RED CELL DISTRIBUTION WIDTH 13.4 % 10.3-14.2 (BEAKER) (test code = 412) PLATELET COUNT (BEAKER) (test 106 K/CU MM 150-430 L code = 756) MEAN PLATELET VOLUME (BEAKER) 9.3 fL 6.5-10.5 (test code = 754) NUCLEATED RED BLOOD CELLS 0 /100 WBC 0-0 (BEAKER) (test code = 413) NEUTROPHILS RELATIVE PERCENT 46 % (BEAKER) (test code = 429) LYMPHOCYTES RELATIVE PERCENT 39 % (BEAKER) (test code = 430) MONOCYTES RELATIVE PERCENT 12 % (BEAKER) (test code = 431) EOSINOPHILS RELATIVE PERCENT 2 % (BEAKER) (test code = 432) BASOPHILS RELATIVE PERCENT 1 % (BEAKER) (test code = 437) NEUTROPHILS ABSOLUTE COUNT 2.32 K/ L 1.80-8.00 (BEAKER) (test code = 670) LYMPHOCYTES ABSOLUTE COUNT 1.96 K/ L 1.48-4.50 (BEAKER) (test code = 414) MONOCYTES ABSOLUTE COUNT (BEAKER) 0.63 K/ L 0.00-1.30 (test code = 415) EOSINOPHILS ABSOLUTE COUNT 0.11 K/ L 0.00-0.50 (BEAKER) (test code = 416) BASOPHILS ABSOLUTE COUNT (BEAKER) 0.05 K/ L 0.00-0.20 (test code = 417) 0.00PROTHROMBIN [id number] 17:14:00 Test Item Value Reference Range Interpretation Comments PROTIME (BEAKER) (test code = 15.4 seconds 11.7-14.7 H 759) INR (BEAKER) (test code = 370) 1.2 <=5.9 RECOMMENDED COUMADIN/WARFARIN INR THERAPY RANGESSTANDARD DOSE: 2.0 - 3.0 Includes: PROPHYLAXIS forvenous thrombosis, systemic embolization; TREATMENT for venous thrombosis and/or pulmonary embolus.HIGH RISK: Target INR is 2.5-3.5 for patients with mechanical heart valves.POCT-GLUCOSE [id number] 07:44:00 Test Item Value Reference Range Interpretation Comments POC-GLUCOSE METER 373 mg/dL 70-[address] [facility] [address] ([facility]) (test code = [place] 4735) [address] GUNJAN TITER AND [id number] 13:43:00 Test Item Value Reference Range Interpretation Comments GUNJAN TITER (BEAKER) (test code = :640 1542) GUNJAN PATTERN (BEAKER) (test code = Speckled 1781) ANTI-NUCLEAR ANTIBODY (GUNJAN)2016-06-06 13:37:00 Test Item Value Reference Range Interpretation Comments ANTI-NUCLEAR ANTIBODY (GUNJAN) (BEAKER) Positive Negative A (test code = 418) BEDSIDE GLUCOSE [id number] 10:39:09385Gvijizan XoyemcbDXSWYMJOL9591-91-31 08:37:0012.3[facility] HyxuccbNUBMLLRAG5487-66-19 08:37:0093[facility] EBCHFLNGX0123-30-88 08:37:000.6[facility] XsqgqpcEUKLENWYE0970-43-75 08:37:002 [facility] HyhscwgVAVOJBGGQ0864-64-21 08:37:45359Olgmitgt HermannCHEMISTRY 2013-02-10 08:37:008.1[facility] RvclusxTNPTTWHGK9598-84-10 08:37:0029[facility] SbeqkkgQQPKZCSVI9204-52-40 08:37:28390Ugokktjs NpjrkgjGKARVGMGP7884-52-84 08:37:36479Hyolmsif KggeqzeODEDTMGZR0835-87-24 08:37:003.3[facility] DRPCSGLBNO5661-77-02 08:37:007.[facility] NzzppoyVAKYYKDTNT5566-11-05 08:37:00 3.91[facility] VmsprwuMXTMXIMIAK8312-51-09 08:37:0010.4[facility] HermannHEMATOLOGY 2013-02-10 08:37:0032.9[facility] SfqoeocCNVGVJQXPF6070-34-80 08:37:008.5[facility] AufotnqOKJATCMBCJ9567-58-71 08:37:0031.6[facility] TjdbhiiWFBVZYCMDT6504-01-80 08:37:0019.2[facility] TbnfthrXIPZSPBDXW0112-26-44 08:37:0084.1[facility] XHNVVJYNTV7730-83-00 08:37:00 Test Item Value Reference Range Interpretation Comments MCH (test code = MCH) 26.6 pg 27.0-31.0 L [facility] SwtvqczIKOBDIPQAF2230-16-04 08:37:25253Hbgfuybd HermannHEMATOLOGY 2013-02-10 08:37:000.0[facility] KkjfzhzQGQINCSJHP9320-64-55 08:37:000.2[facility] IlfbpfkDQDNAVFUFY1570-32-02 08:37:000.3[facility] DinbdukKQDLUYDKAZ1899-99-37 08:37:003.1[facility] QzdcewsLWMFVIYJDV3519-47-70 08:37:0010.0[facility] LWGSBYUVWP6889-31-83 08:37:0041.5[facility] GdzubsfGDXVHNJVPH0053-55-27 08:37:00 3.3[facility] MbxxkjhZUIRHQCUVY2064-38-45 08:37:000.7[facility] HermannHEMATOLOGY 2013-02-10 08:37:003.0[facility] PphqtkyPOZTNTANPJ1273-98-01 08:37:0045.1[facility] HermannBEDSIDE GLUCOSE LUYXXMY2356-47-11 01:53:76610Gilnbyyc HermannBEDSIDE GLUCOSE BQRIQPV6406-98-26 21:34:85207Hwvfjnyr EqvosoqYZEUINXEIB3230-06-07 15:01:0011.0[facility] LxvsfbeAKBQAYTQUW5959-59-74 15:01:0034.6[facility] SUDNMRKFPC1565-53-48 10:23:0010.2[facility] VktbvejZDNUCLFQMN4315-85-66 10:23:00 32.1[facility] AxxvqzdJZSJGYBYHW4480-84-76 14:47:63461Wodayfau HermannHEMATOLOGY 2013-02-08 14:47:0018.8[facility] YxqqlsdSWNVBWLYTT5511-07-83 14:47:008.8[facility] GqflgogRRAELQZJGA8626-92-54 14:47:0083.0[facility] WvbmhoiGMWUVPJQVY5014-58-98 14:47:00 Test Item Value Reference Range Interpretation Comments MCH (test code = MCH) 26.4 pg 27.0-31.0 L [facility] WzajmtkIDPRDXRQFJ2983-52-07 14:47:0031.8[facility] HermannHEMATOLOGY 2013-02-08 14:47:003.97[facility] RtdaeyiEBZZEKRDBY1143-82-88 14:47:006.2[facility] OswpvwwZALROWZQZK2043-68-07 16:43:06834Gtftxxmc TdpvmidJTWXLUTNES4219-57-82 16:43:008.7[facility] CzfnzfyTTNUZLXCAL7156-17-23 16:43:004.20[facility] RCCSKKPGIN0351-86-59 16:43:006.5[facility] XxioxeoNLCKEHIXYP2645-00-93 16:43:00 84.7[facility] XemwmsnJSGEJLIAGO3231-83-65 16:43:00 Test Item Value Reference Range Interpretation Comments MCH (test code = MCH) 26.7 pg 27.0-31.0 L [facility] JdghddqBHVGCMICHY3908-94-72 16:43:0019.1[facility] HermannHEMATOLOGY 2013-02-07 16:43:0031.5[facility] HermannBLOOD BANK JJNBBCB4887-61-65 13:40:00 Product available 4(02/05/2013 08:40:00)[facility] HermannBLOOD BANK RESULTS 2013-02-05 00:40:00Negative (02/04/2013 19:40:00)[facility] HermannCHEMISTRY 2013-02-05 00:40:002.7[facility] NkyuimsROHYAZOQL0734-95-25 00:40:001.5[facility] MtailmaCLCKQDGVK2760-76-76 00:40:0093[facility] RqzemznKUYMVYDUV3445-20-94 00:40:000.6[facility] IewfkqvQDVSIBUEB8633-48-67 00:40:0049[facility] WZPEEKFLV4973-48-58 00:40:76108Ltyhysul WduqmpiBKVAXGGCG4993-24-92 00:40:003.1 [facility] AjqvxksXRILZUXOH6530-62-97 00:40:0030[facility] HermannCHEMISTRY 2013-02-05 00:40:008.0[facility] TrofaolQEFPVGPLM6822-11-29 00:40:007.2[facility] YnzxygxAIIITDHGF0414-86-47 00:40:0027[facility] KgwhavaADEXKMSII4962-75-34 00:40:16389Rxqzcujh DecwmerVOFKBCGCT1265-84-45 00:40:005[facility] XTVGVJUTU8940-94-15 00:40:000.6[facility] LvnzlrcYABZCKILH6439-86-16 00:40:003.6 [facility] RtaeqqqMSJGQUHEC2992-28-84 00:40:25051Rpfgihkk HermannCHEMISTRY 2013-02-05 00:40:54495Necuuftl PfvyimtCBPAZMWUA8619-12-93 00:40:0013.6[facility] ZpdkvigFEUWASWTN6083-73-79 00:40:008[facility] NxgruckTNBPWCSQS4082-13-94 00:40:00 0.8[facility] GflleejJJLEHNRAP6323-40-72 00:40:004.1[facility] HermannHEMATOLOGY 2013-02-05 00:40:0038.5[facility] YorggceQQKKNIJJDG9472-87-18 00:40:000.6[facility] CpgnsbvWYJZKYAAHU3785-08-40 00:40:0013.5[facility] TkxpvvnBYEBMSQFLN1684-04-57 00:40:002.7[facility] GqvnreuBEEWELRNPN0404-90-49 00:40:0044.7[facility] RRUDUZVCBA5076-02-21 00:40:000.2[facility] ZlzspoyEHPBPYZWPE2235-24-17 00:40:003.1 [facility] AgrvjosREIMSTPJXW7923-90-79 00:40:002.7[facility] HermannHEMATOLOGY 2013-02-05 00:40:000.0[facility] QiuuazyPSJUFCPOZR1362-57-74 00:40:000.9[facility] SotairaXLORAUSFTN5714-97-61 00:40:00 Test Item Value Reference Range Interpretation Comments aPTT (test code = aPTT) 32.2 s 22.9-35.8 N [facility] LlngpppQWRLPNPQMX8821-02-99 00:40:00 Test Item Value Reference Range Interpretation Comments PROTIME (test code = PROTIME) 15.0 s 12.0-14.7 H [facility] NroizihCTISTMJDHB4554-89-65 00:40:001.19[facility] HermannURINALYSIS 2013-02-05 00:30:00Negative *NA*(02/04/2013 19:30:00)[facility] HermannURINALYSIS 2013-02-05 00:30:00Moderate *ABN*(02/04/2013 19:30:00)[facility] HermannURINALYSIS 2013-02-05 00:30:00Negative (02/04/2013 19:30:00)[facility] HermannURINALYSIS 2013-02-05 00:30:00Negative (02/04/2013 19:30:00)[facility] HermannURINALYSIS 2013-02-05 00:30:00Slight *ABN*(02/04/2013 19:30:00)[facility] HermannURINALYSIS 2013-02-05 00:30:006.0[facility] QewxuigIPBCNOXRHD8295-73-75 00:30:001.003[facility] EnwnfscWIWYZVYFOU8064-22-87 00:30:001[facility] YmhqeajGCBTVRSEDL5328-71-69 00:30:002[facility] HermannBEDSIDE GLUCOSE YHJSGLP3168-44-92 21:18:51482Hfwmffoq HermannBEDSIDE GLUCOSE OYXECGG8527-95-52 17:01:29549Xselanct HermannHEMATOLOGY 2013-01-27 14:14:0020.0[facility] QdvxekgAGHHYEPUMZ6057-43-81 14:14:008.5[facility] ExfsuoqRKPKADJZNA2395-86-04 14:14:60085Qqsmoysx UlyeyliPQTTRFIYGE6412-28-87 14:14:005.7[facility] FypuslbIQGOFISMFP4700-51-95 14:14:0030.5[facility] AIMSZRJNZT1747-08-44 14:14:009.6[facility] EotglwsGPYCTFPOTX4278-13-26 14:14:00 3.60[facility] PnxlywkLMMUFTRVNS4726-23-39 14:14:00 Test Item Value Reference Range Interpretation Comments MCH (test code = MCH) 26.6 pg 27.0-31.0 L [facility] GonyloyLRRWGWNSSK4084-51-66 14:14:0084.5[facility] HermannHEMATOLOGY 2013-01-27 14:14:0031.5[facility] OjcbwixMEJRBFFZCI0381-51-18 14:14:0053.6[facility] KyzinfbOWQXQXYMXW5186-05-95 14:14:0032.8[facility] RnnygomRWBWSWZWKY4823-25-54 14:14:0011.3[facility] NtpdfkzRDQTGGUHHR2861-31-32 14:14:001.9[facility] VCYPFSIORF4647-56-93 14:14:000.4[facility] SovymexWGWJHYFRBQ4230-84-47 14:14:003.0 [facility] ZnbuyqwPFASZQPQGK0140-49-75 14:14:001.9[facility] HermannHEMATOLOGY 2013-01-27 14:14:000.6[facility] BwaspatOMSMZRFQXE1662-89-83 14:14:000.1[facility] IsclztlFPACRWGVDY6887-81-72 14:14:000.0[facility] HermannBEDSIDE GLUCOSE TESTING 2013-01-27 12:55:77935Exkykcsg GhajnvnRFEUWTHHSU9476-78-49 10:40:000.7[facility] HhlykmvLXICZEPDCC0557-63-67 10:40:001.8[facility] NywfxjrMQUJCSVMDS3599-53-08 10:40:002.3[facility] KkwvyqnMNVAZIUVAR8499-16-28 10:40:000.2[facility] HUPIONOKPX8640-90-70 10:40:002.2[facility] RsbissnJYUMPQDSHK0736-23-07 10:40:00 46.1[facility] QceezsvIALGMGYLKC0294-05-25 10:40:0037.9[facility]annHEMATOLOGY 2013-01-26 10:40:0013.5[facility] VftwknmMSIFPVUSMF7308-78-50 10:40:000.0[facility] XhyxnlzXLIEYSTHJI8030-66-47 10:40:000.1[facility] QuyxhyhZWSKUQJDOE7798-14-58 10:40:00 Test Item Value Reference Range Interpretation Comments PROTIME (test code = PROTIME) 16.5 s 12.0-14.7 H [facility] AisngtaIDOFDDTYQP1685-25-16 10:40:001.35[facility]HEMATOLOGY 2013-01-26 10:40:0028.5[facility] WsryclbIZZQPWEAPP9789-80-78 10:40:0085.8[facility] JkiewvdUBLEKWMLWB8604-72-59 10:40:00 Test Item Value Reference Range Interpretation Comments MCH (test code = MCH) 27.2 pg 27.0-31.0 N [facility] PznfwpcGYXMOBDTSS0071-99-87 10:40:0031.7[facility]annHEMATOLOGY 2013-01-26 10:40:009.0[facility] LijngbcBQABOIMKQV2449-71-22 10:40:71415Vtutgiaj IndwsbwBZJZYQIKLS3353-83-14 10:40:008.9[facility] DismimfPAWKLXOLER4751-09-95 10:40:0020.0[facility] XlmyihvSIBCRODKPT0018-29-21 10:40:004.9[facility] TGEHDXULWE5272-76-82 10:40:003.32[facility] HermannTUMOR DPTIMAA4742-76-14 10:40:003.0[facility] GequueuBHXYRJQWDD0078-57-48 04:15:005.9[facility] GSEURYNFQW9332-60-86 04:15:0085.3[facility] SnhfrgaRSOYTKVFXM4795-79-70 04:15:00 153[facility] DbjgaduWWSDXRNQSI8953-23-24 04:15:0019.6[facility]annHEMATOLOGY 2013-01-26 04:15:009.5[facility] GmojbwbEUFSMKBNMY7541-57-12 04:15:003.55[facility] UxtqrxqTDTXJOTZYF1137-17-80 04:15:0030.3[facility] VhmqaelXBAVYPTCQA0451-04-01 04:15:008.9[facility] XkswmstDZZXKWXNRK4404-04-29 04:15:0031.4[facility] YJAIAIMREQ5416-83-47 04:15:00 Test Item Value Reference Range Interpretation Comments MCH (test code = MCH) 26.8 pg 27.0-31.0 L [facility] EypnmmlBEJRDQRZMW9253-25-19 04:15:000.0[facility]annHEMATOLOGY 2013-01-26 04:15:000.7[facility] McdyrjvWUBWXKBQVS8092-75-47 04:15:000.1[facility] AugehkqKWWYAJMKAS7203-04-66 04:15:0011.7[facility] NrsvnjfDHDCKYCHHJ2133-17-11 04:15:002.4[facility] RgnigrfHFQXJOTOZJ1701-22-64 04:15:000.6[facility] SYWPYAJCWS4648-70-74 04:15:002.6[facility] TfrmcdeIAZZQCQJRG9351-03-37 04:15:002.4 [facility] MqgrtnoGYTJILPXAX7857-02-86 04:15:0041.2[facility]annHEMATOLOGY 2013-01-26 04:15:0044.1[facility] VtmaxkrSEXBSYQJLW0762-70-95 14:31:00Negative *NA*(01/25/2013 09:31:00)[facility] IkoqglqLFUSZRPCYW1464-61-51 14:31:00Negative *NA*(01/25/2013 09:31:00)[facility] AmmcikfIKXFKGJWZP2035-41-15 14:31:00Negative *NA*(01/25/2013 09:31:00)[facility] BzxqvnnLMYONBGCIA6489-71-00 14:31:00Positive *NA*(01/25/2013 09:31:00)[facility] AwrbhjbPVVXDETXNG8833-72-27 14:31:0079.7 [facility] SCDXBXR2329-84-90 13:32:00Product available 4(01/25/2013 08:32:00)[facility] FqsunvbJXWOVIWJF0924-72-60 08:45:001.7[facility] JndtobyCJIIVJHHV6684-86-85 08:45:001.9[facility] LurdbyhJOLOYCDYW7023-14-99 08:45:000.04[facility] LyzevxmCHICOZEKV2874-24-52 08:45:59546Xuwaomzs [facility] XQRDJCJLR8782-45-30 08:45:000.6[facility] TpymaixOFJTVUAOJ3879-51-37 08:45:000.5 [facility] XsfrgvqLPTRTLXCG7236-24-35 04:09:000.04[facility]annCHEMISTRY 2013-01-25 04:09:15998Aljtygqj NjyxgiiBFTGUEUJV7700-84-69 04:09:000.7[facility] YablhbnATZVQMZQC0918-33-67 04:09:000.7[facility] UjsxjhsYQJSOQYGL4364-40-93 13:07:03297Esslqrby UjipbqbXGZWJUVHF3803-01-21 13:07:003.6[facility] LSSMOEVLG8177-85-85 13:07:89077Kjgosvam IpgiqfkKGMMVMSJA8210-84-09 13:07:0093 [facility] ZqtzdtwDSKHRALLL3097-53-09 13:07:007[facility] IyszymzAKNJSMVZY2710-23-31 13:07:000.6[facility] YjdjhvfEKXGNJOEA9894-28-19 13:07:0027[facility] MATKVOKTX6015-01-66 13:07:007.6[facility] VatyqruUQRYGZZVU3661-54-26 13:07:40931 [facility] IeoirehLSENLZREY4981-99-70 13:07:0012.6[facility]annCHEMISTRY 2013-01-24 13:07:002.6[facility] TklwxtzDNXDSMAKY3565-93-05 13:07:001.6[facility]annBLOOD [facility] PZOUDZQ0286-94-44 04:33:26Product available 5(01/23/2013 23:33:26)[facility] IetqyhaFVTAZZSNP2824-14-52 03:15:0017[facility]annCHEMISTRY 2013-01-24 03:15:0013.8[facility] ZtuaeoaRWNTCDYCW5702-91-02 03:15:003.2[facility] SejpulmMKGTBYGGY9003-26-08 03:15:000.9[facility] BmgvgdzLJORIFXMK2683-70-87 03:15:003.8[facility] AurtelbGXKBVYCFM4587-38-20 03:15:57115Mwjnoyop [facility] DDQMFRGGO0763-25-03 03:15:22728Tqqnwetn DuodmodCSQPZHAHX1727-58-17 03:15:0088 [facility] WqwfbrxDNQFVFFZN0453-89-92 03:15:0046[facility]annCHEMISTRY 2013-01-24 03:15:89071Vxvpmozx PhtsbkzAPMXZPAGX5792-66-37 03:15:000.6[facility] DfqsdquDMWEBBATG0505-08-14 03:15:002.9[facility] ApjkoblSGIQAGCGG4470-12-02 03:15:0032[facility] KejnzxmUPADSCOXB6780-96-59 03:15:007.8[facility] JVXLDTIUJ0597-96-40 03:15:006.1[facility] PjqpyduYHWUVCCHQ3533-61-60 03:15:0026 [facility] JaowzghYTRJQGISP1830-53-60 03:15:000.7[facility]annCHEMISTRY 2013-01-24 03:15:01662Sfupcvkb UeawbquVPMTAOLEA6803-27-68 03:15:0012[facility] WyqspehPKBEYPKSGU0338-81-94 03:15:00 Test Item Value Reference Range Interpretation Comments PROTIME (test code = PROTIME) 16.7 s 12.0-14.7 H [facility] KucgycfYHOYFGXRQV9805-91-88 03:15:001.37[facility]annHEMATOLOGY 2013-01-24 03:15:00 Test Item Value Reference Range Interpretation Comments aPTT (test code = aPTT) 29.7 s 22.9-35.8 [facility] XBBMJJO8340-95-44 03:13:00Negative (01/23/2013 22:13:00)[facility] CGBXS2749-12-43 02:10:00Positive *ABN*(01/23/2013 21:10:00)[facility]
--- NOTE | 2019-10-15 22:51 | ER ---
Nurse's Notes [facility] Name: Sirisha Cowan Age: 78 yrs Sex: Female : 1940 Arrival Date: 10/15/2019 Time: 21:44 Bed 7 Private MD: Diagnosis: Compression Fracture of L1 Presentation: 10/14 21:54 Coronavirus screen: Proceed with normal triage. Ebola Screen: No symptoms or risks rv identified at this time. Initial Sepsis Screen: Does the patient meet any 2 criteria? No. Patient's initial sepsis screen is negative. Does the patient have a suspected source of infection? No. Patient's initial sepsis screen is negative. Risk Assessment: Do you want to hurt yourself or someone else? Patient reports no desire to harm self or others. 21:54 Acuity: GILMA 3 rv 21:54 Method Of Arrival: Ambulatory rv 21:55 Chief complaint: Patient states: Fell landing on back 4 days ago when her walker did lp1 not lock correctly; complaint of pain to mid and lower back. Care prior to arrival: None. Mechanism of Injury: Fall from standing position. 21:55 Care prior to arrival: None. Mechanism of Injury: Fall from standing position. Trauma rv event details: Injury occurred in the [facility], Injury occurred: at home. Injury occurred: October 11, 2019. 21:56 Onset of symptoms was October 11, 2019. lp1 21:57 Onset of symptoms. rv Trauma Activation: Not Applicable Physician: ED Physician; Name: ; Notified At: ; Arrived At: Physician: General Surgeon; Name: ; Notified At: ; Arrived At: Physician: Radiology; Name: ; Notified At: ; Arrived At: Physician: Respiratory; Name: ; Notified At: ; Arrived At: Physician: Lab; Name: ; Notified At: ; Arrived At: Historical: - Allergies: 21:58 No Known Allergies; rv 21:59 No Known Allergies; lp1 - Home Meds: 21:59 bifidobacterium bifidum and longum 4 mg Oral daily [Active]; cholecalciferol (vitamin lp1 D3) 1,000 unit Oral tab daily [Active]; ezetimibe 10 mg Oral 1 tab once daily [Active]; famotidine 40 mg Oral tab 1 tab once daily [Active]; ferrous sulfate 325 mg (65 mg iron) Oral tab daily [Active]; furosemide 20 mg Oral tab 1 tab once daily [Active]; lactulose 20 gram/30 mL Oral soln 2-3 times a day as needed [Active]; levothyroxine 50 mcg tab 1 tab once daily [Active]; Lovaza 1 gram Oral cap 2 times per day [Active]; Novolog 100 unit/mL Sub-Q soln 55 unit BID before meals [Active]; pantoprazole 40 mg Oral TbEC 1 tab 2 times per day [Active]; pregabalin 75 MG Oral 1 cap 2 times per day [Active]; propranolol 40 mg Oral tab 1 tab 2 times per day [Active]; spironolactone 50 mg Oral tab 1 tab once daily [Active]; Tradjenta 5 mg Oral tab 1 tab once daily [Active]; tramadol 50 mg Oral tab q 6hrs prn [Active]; vitamin E 400 unit Oral cap daily [Active]; - PMHx: 21:58 Anemia; awaiting liver transplant; Cirrhosis; Diabetes - IDDM; GERD; High Cholesterol; rv Hypertension; Hypothyroidism; 21:59 Anemia; awaiting liver transplant; Cirrhosis; Diabetes - IDDM; GERD; High Cholesterol; lp1 Hypertension; Hypothyroidism; - PSHx: 21:58 Appendectomy; rv 21:59 Appendectomy; Cholecystectomy; Hysterectomy; Bladder suspension; lp1 - Immunization history:: Adult Immunizations up to date, Adult Immunizations up to date. - Social history:: Smoking status: Patient denies any tobacco usage or history of. Smoking status: Patient denies any tobacco usage or history of. Screenin:52 Abuse screen: Denies threats or abuse. Denies injuries from another. Nutritional rv screening: No deficits noted. Tuberculosis screening: No symptoms or risk factors identified. Fall Risk Fall in past 12 months (25 points). Secondary diagnosis (15 points) impaired mobility, No IV (0 pts). Ambulatory Aid- None/Bed Rest/Nurse Assist (0 pts). Gait- Weak (10 pts.). Mental Status- Oriented to own ability (0 pts). Total [place] Fall Scale indicates Low Risk Score (25-44 pts). Fall prevention measures have been instituted. Side Rails Up X 2 Frequent Obs/Assesments occuring Family Present and informed to notify staff if they need to leave bedside As available Patient and Family Educated on Fall Prevention Program and strategies. Primary Survey: 21:53 NO uncontrolled hemorrhage observed. Breathing/Chest: Respiratory pattern: regular, rv Respiratory effort: spontaneous, Breath sounds: clear, bilaterally. Circulation: Skin temperature: warm. Disability Alert. Exposure/Environment: There is no evidence of uncontrolled external bleeding. No obvious injuries are noted at this time. A warming method has been applied: A warm blanket has been provided to the patient. Assessment: 21:51 General: Appears uncomfortable, Behavior is calm, cooperative. Pain: Complains of pain rv in back. Neuro: Level of Consciousness is awake, alert, obeys commands, Oriented to person, place, time, situation. Cardiovascular: Patient's skin is warm and dry. Respiratory: Airway is patent. Derm: Skin is intact. Musculoskeletal: Reports pain in back moves very slowly and appears to be guarding her lower back. Vital Signs: 21:56 BP 169 / 84; Pulse 81; Resp 18; Temp 98.5; Pulse Ox 97% on R/A; Weight 79.38 kg (R); lp1 Height 5 ft. 2 in. (157.48 cm); Pain 5/10; 23:40 BP 155 / 80; Pulse 80; Resp 18; Temp 98; Pulse Ox 100% on R/A; mg2 21:56 Body Mass Index 32.01 (79.38 kg, 157.48 cm) lp1 Clarissa Coma Score: 21:54 Eye Response: spontaneous(4). Verbal Response: oriented(5). Motor Response: obeys rv commands(6). Total: 15. 23:40 Eye Response: spontaneous(4). Verbal Response: oriented(5). Motor Response: obeys mg2 commands(6). Total: 15. Trauma Score (Adult): 21:54 Eye Response: spontaneous(1); Verbal Response: oriented(1); Motor Response: obeys rv commands(2); Systolic BP: > 89 mm Hg(4); Respiratory Rate: 10 to 29 per min(4); [place] Score: 15; Trauma Score: 12 23:40 Eye Response: spontaneous(1); Verbal Response: oriented(1); Motor Response: obeys mg2 commands(2); Systolic BP: > 89 mm Hg(4); Respiratory Rate: 10 to 29 per min(4); Clarissa Score: 15; Trauma Score: 12 ED Course: 21:44 Patient arrived in ED. cl3 21:47 Augustina Zee FNP-C is [facility]. kb 21:47 Westley Li MD is Attending Physician. kb 21:47 Venkatesh Tejada, RN is Primary Nurse. rv 21:54 Triage completed. rv 21:56 Arm band placed on. lp1 21:56 Patient has correct armband on for positive identification. Pulse ox on. NIBP on. rv 22:13 CT Lumbar Spine Wo Con In Process Unspecified. EDMS 23:40 No provider procedures requiring assistance completed. Patient did not have IV access mg2 during this emergency room visit. Administered Medications: 22:56 Drug: traMADol 50 mg {Note: rass 0.} Route: PO; rr5 23:23 Follow up: Response: No adverse reaction; RASS: Alert and Calm (0) mg2 Outcome: 22:50 Discharge ordered by MD. kb 23:41 Discharged to home via wheelchair, with family. mg2 23:41 Condition: stable 23:41 Discharge instructions given to patient, family, Instructed on discharge instructions, follow up and referral plans. medication usage, Demonstrated understanding of instructions, follow-up care, medications, Prescriptions given X 1. 23:41 Patient left the ED. mg2 Signatures: Dispatcher [employer] EDMS Augustina Zee FNP-C PAINT DIPPER-Ckb Marcie Reeder RN RN lp1 Brayan Knapp RN RN mg2 Venkatesh Tejada, RN RN rv Joselito Uribe RN RN rr5 Marisol Andino cl3 Corrections: (The following items were deleted from the chart) 21:59 21:57 BP 169 / 84; Pulse 77bpm; Resp 20bpm; Pulse Ox 98% RA; Temp 98.5F; 72.57 kg; rv rv
--- NOTE | 2019-10-15 22:51 | EDPHYS ---
Physician Documentation [facility] Name: Sirisha Cowan Age: 78 yrs Sex: Female : 1940 Arrival Date: 10/15/2019 Time: 21:44 Bed 7 Private MD: ED Physician Westley Li HPI: 10/14 22:04 This 78 yrs old Female presents to ER via Ambulatory with complaints of Fall kb Injury, Back Pain. 22:04 Details of fall: The patient fell from an upright position, while walking. Onset: The kb symptoms/episode began/occurred 6 day(s) ago. Associated injuries: The patient sustained injury to the low back, pain, pain with movement. Severity of symptoms: At their worst the symptoms were moderate, in the emergency department the symptoms are unchanged. The patient has not experienced similar symptoms in the past. The patient has not recently seen a physician. Pt reports the brakes on her walker didn't work on Saturday and it caused her to fall backwards. Has had low back pain since then. Historical: - Allergies: 21:58 No Known Allergies; rv 21:59 No Known Allergies; lp1 - Home Meds: 21:59 bifidobacterium bifidum and longum 4 mg Oral daily [Active]; cholecalciferol (vitamin lp1 D3) 1,000 unit Oral tab daily [Active]; ezetimibe 10 mg Oral 1 tab once daily [Active]; famotidine 40 mg Oral tab 1 tab once daily [Active]; ferrous sulfate 325 mg (65 mg iron) Oral tab daily [Active]; furosemide 20 mg Oral tab 1 tab once daily [Active]; lactulose 20 gram/30 mL Oral soln 2-3 times a day as needed [Active]; levothyroxine 50 mcg tab 1 tab once daily [Active]; Lovaza 1 gram Oral cap 2 times per day [Active]; Novolog 100 unit/mL Sub-Q soln 55 unit BID before meals [Active]; pantoprazole 40 mg Oral TbEC 1 tab 2 times per day [Active]; pregabalin 75 MG Oral 1 cap 2 times per day [Active]; propranolol 40 mg Oral tab 1 tab 2 times per day [Active]; spironolactone 50 mg Oral tab 1 tab once daily [Active]; Tradjenta 5 mg Oral tab 1 tab once daily [Active]; tramadol 50 mg Oral tab q 6hrs prn [Active]; vitamin E 400 unit Oral cap daily [Active]; - PMHx: 21:58 Anemia; awaiting liver transplant; Cirrhosis; Diabetes - IDDM; GERD; High Cholesterol; rv Hypertension; Hypothyroidism; 21:59 Anemia; awaiting liver transplant; Cirrhosis; Diabetes - IDDM; GERD; High Cholesterol; lp1 Hypertension; Hypothyroidism; - PSHx: 21:58 Appendectomy; rv 21:59 Appendectomy; Cholecystectomy; Hysterectomy; Bladder suspension; lp1 - Immunization history:: Adult Immunizations up to date, Adult Immunizations up to date. - Social history:: Smoking status: Patient denies any tobacco usage or history of. Smoking status: Patient denies any tobacco usage or history of. ROS: 22:04 Constitutional: Negative for fever, chills, and weight loss, Cardiovascular: Negative kb for chest pain, palpitations, and edema, Respiratory: Negative for shortness of breath, cough, wheezing, and pleuritic chest pain, Abdomen/GI: Negative for abdominal pain, nausea, vomiting, diarrhea, and constipation, MS/Extremity: Negative for injury and deformity, Skin: Negative for injury, rash, and discoloration, Neuro: Negative for headache, weakness, numbness, tingling, and seizure. 22:04 Back: Positive for pain at rest, pain with movement, of the lumbar area. Exam: 22:04 Constitutional: This is a well developed, well nourished patient who is awake, alert, kb and in no acute distress. Head/Face: Normocephalic, atraumatic. Chest/axilla: Normal chest wall appearance and motion. Nontender with no deformity. No lesions are appreciated. Cardiovascular: Regular rate and rhythm with a normal S1 and S2. No gallops, murmurs, or rubs. Normal PMI, no JVD. No pulse deficits. Respiratory: Lungs have equal breath sounds bilaterally, clear to auscultation and percussion. No rales, rhonchi or wheezes noted. No increased work of breathing, no retractions or nasal flaring. Abdomen/GI: Soft, non-tender, with normal bowel sounds. No distension or tympany. No guarding or rebound. No evidence of tenderness throughout. Skin: Warm, dry with normal turgor. Normal color with no rashes, no lesions, and no evidence of cellulitis. MS/ Extremity: Pulses equal, no cyanosis. Neurovascular intact. Full, normal range of motion. Neuro: Awake and alert, GCS 15, oriented to person, place, time, and situation. Cranial nerves II-XII grossly intact. Motor strength 5/5 in all extremities. Sensory grossly intact. Cerebellar exam normal. Normal gait. 22:04 Back: vertebral tenderness, is appreciated at lumbar spine. Vital Signs: 21:56 BP 169 / 84; Pulse 81; Resp 18; Temp 98.5; Pulse Ox 97% on R/A; Weight 79.38 kg (R); lp1 Height 5 ft. 2 in. (157.48 cm); Pain 5/10; 23:40 BP 155 / 80; Pulse 80; Resp 18; Temp 98; Pulse Ox 100% on R/A; mg2 21:56 Body Mass Index 32.01 (79.38 kg, 157.48 cm) lp1 Clarissa Coma Score: 21:54 Eye Response: spontaneous(4). Verbal Response: oriented(5). Motor Response: obeys rv commands(6). Total: 15. 23:40 Eye Response: spontaneous(4). Verbal Response: oriented(5). Motor Response: obeys mg2 commands(6). Total: 15. Trauma Score (Adult): 21:54 Eye Response: spontaneous(1); Verbal Response: oriented(1); Motor Response: obeys rv commands(2); Systolic BP: > 89 mm Hg(4); Respiratory Rate: 10 to 29 per min(4); Clarissa Score: 15; Trauma Score: 12 23:40 Eye Response: spontaneous(1); Verbal Response: oriented(1); Motor Response: obeys mg2 commands(2); Systolic BP: > 89 mm Hg(4); Respiratory Rate: 10 to 29 per min(4); [place] Score: 15; Trauma Score: 12 MDM: 21:47 Patient medically screened. kb 22:04 Data reviewed: vital signs, nurses notes. Data interpreted: Pulse oximetry: on room air kb is 97 %. Interpretation: normal. 22:50 Counseling: I had a detailed discussion with the patient and/or guardian regarding: the kb historical points, exam findings, and any diagnostic results supporting the discharge/admit diagnosis, radiology results, the need for outpatient follow up, a family practitioner, to return to the emergency department if symptoms worsen or persist or if there are any questions or concerns that arise at home. 10/14 21:52 Order name: CT Lumbar Spine Wo Con kb Administered Medications: 22:56 Drug: traMADol 50 mg {Note: rass 0.} Route: PO; rr5 23:23 Follow up: Response: No adverse reaction; RASS: Alert and Calm (0) mg2 Disposition: 10/15 03:53 Co-signature as Attending Physician, Westley Li MD I agree with the assessment and tw4 plan of care. Disposition: 10/15/19 22:50 Discharged to Home. Impression: Compression Fracture of L1 . - Condition is Stable. - Discharge Instructions: Lumbar Fracture. - Prescriptions for Tramadol 50 mg Oral Tablet - take 1 tablet by ORAL route every 8 hours as needed; 12 tablet. - Medication Reconciliation Form, Thank You Letter, Antibiotic Education, Prescription Opioid Use form. - Follow up: Emergency Department; When: As needed; Reason: Worsening of condition. Follow up: Private Physician; When: 2 - 3 days; Reason: Recheck today's complaints, Continuance of care, Re-evaluation by your physician. Signatures: Dispatcher [employer] EDMS Augustina Zee, LAB CLERK-C LAB CLERK-Ckb Marcie Reeder, ANTONIO RN lp1 Westley Li MD MD tw4 Brayan Knapp, ANTONIO RN mg2 Venkatesh Tejada RN RN rv Joselito Uribe RN RN rr5 Corrections: (The following items were deleted from the chart) 10/14 23:41 22:50 10/15/2019 22:50 Discharged to Home. Impression: Compression Fracture of L1 . mg2 Condition is Stable. Forms are Medication Reconciliation Form, Thank You Letter, Antibiotic Education, Prescription Opioid Use. Follow up: Emergency Department; When: As needed; Reason: Worsening of condition. Follow up: Private Physician; When: 2 - 3 days; Reason: Recheck today's complaints, Continuance of care, Re-evaluation by your physician. kb
[2019-10-15] MEDS ORDERED: TRAMADOL HCL 50 MG TAB ONE (23:02)
[2019-10-15 23:48] VITALS: BP 155/80; TEMP 98; O2SAT 100
--- NOTE | 2019-10-16 18:38 | RAD REPORT ---
EXAM DESCRIPTION: CT - Spine Lumbar Wo Con - 10/16/2019 5:28 am CLINICAL HISTORY: LOWER BACK PAIN COMPARISON: 11/30/2015 TECHNIQUE: Axial CT of the lumbar spine obtained without contrast. FINDINGS: Acute or subacute compression fracture of the L1 vertebral body with approximately 5% loss of vertebral body height and without significant retropulsion of fracture fragments. No other acute fracture identified. Osteopenia. L1/2: Mild loss of intervertebral disc height with mild broad-based disc bulge. Facet arthropathy wi th endplate spondylosis. Mild osseous neural foraminal narrowing. L2/3: Moderate loss of intervertebral disc height with broad-based posterior disc bulge. Effacement of the thecal sac. Ligamentum flavum hypertrophy. Facet arthropathy and endplate spondylosis. Mild bi lateral neural foraminal narrowing. L3/4: Mild loss of intervertebral disc height. Mild broad-based posterior disc bulge. Ligamentum fla vum hypertrophy. Mild narrowing of the spinal canal due to soft tissues and osseous structures. Facet arthropathy and endplate spondylosis. Mild bilateral neural foraminal narrowing. L4/5: Mild loss of intervertebral disc height. 3 mm anterolisthesis of L4 over L5 which is degenerat denise. Mild broad-based posterior disc bulge. Moderate bilateral neural foraminal narrowing. Facet arth ropathy and ligament flavum hypertrophy. L5/S1: Severe loss of intervertebral disc height and broad-based posterior disc bulge. Facet arthropa thy with endplate spondylosis. Severe osseous neural foraminal narrowing. Aortoiliac atherosclerosis. Prior hysterectomy. Partial visualization of left total hip arthroplasty. IMPRESSION: 1. Acute/subacute compression fracture of the L1 vertebral body with approximately 5% l oss of vertebral body height and no significant retropulsion of fracture fragments. MRI would provide more accurate characterization of acuity. 2. 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 This exam was performed according to our departmental dose-optimization program, which includes autom ated exposure control, adjustment of the mA and/or kV according to patient size and/or use of iterati ve reconstruction technique. Electronically signed by: Joe Goldstein 10/15/2019 10:33 PM CDT Due to temporary technical issues with the PACS/Fluency reporting system, reports are being signed by the in house radiologist without review as a courtesy to ensure prompt reporting. The interpreting r adiologist is fully responsible for the content of the report.
== END 2019-10-15 23:41 | disposition home or self-care (01) ==
LOC: ER 21:42
DX: S32.019A Unspecified fracture of first lumbar vertebra, initial encounter for closed fracture (principal); W19.XXXA Unspecified fall, initial encounter; Y93.01 Activity, walking, marching and hiking; Y92.9 Unspecified place or not applicable; I10 Essential (primary) hypertension; E03.9 Hypothyroidism, unspecified; E11.9 Type 2 diabetes mellitus without complications; Z79.4 Long term (current) use of insulin; E78.00 Pure hypercholesterolemia, unspecified
CPT/HCPCS: 72131; 99284

== ENCOUNTER 2020-01-19 16:17 | Emergency (ER) | payer OTHER ==
--- OUTSIDE RECORDS SUMMARY | 2020-01-19 16:20 | XMS REPORT | Clinical Summary ---
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 Rectal bleeding 09/23/2012 Encounters Date Type Specialty Care Team Description 10/27/2019 Hospital Encounter Radiology Lizett Fairbanks ssion fracture of lumbar vertebra with routine healing, unspecified lumbar vertebral level, subsequent encounter; Eric Osteopenia, uns pecified location 10/27/2019 Outside Orders Central Scheduling Lizett Fairbanks Comp ression fracture of lumbar vertebra with routine healing, unspecified lumbar vertebral level, subsequent encounter (Primary Dx); Eric Osteopenia, uns pecified location after 01/18/2019 Family History Medical History Relation Name Comments [...] EYE EXAM 1950 DIABETIC FOOT EXAM 1950 URINE MICROALBUMIN 1950 MEDICARE ANNUAL WELLNESS (YEAR 2 or FIRST YEAR if no 12/22/2008 IPPE) HEMOGLOBIN A1C 11/27/2016 05/30/2016 PNEUMOCOCCAL 65+ HIGH/HIGHEST RISK (2 of 2 - PPSV23) 03/04/2017 01/07/2017 INFLUENZA VACCINE (#1) 2019 01/15/2018 Implants Implanted Type Area Account Service Associate Device Shelf Model / Identifier Expiration Serial / Date Lot Device Clsr Angio-Seal Vip 6fr [id number] - [id number] Cardiovascular N/A: ST [employer]ELY[employer] 01/19/2017 [id number] / Implanted: Qty: 1 on 06/19/2016 by Nerissa Paredes MD [facility] MED:CARDIAC / [id number] [id number] Procedures Procedure Name Priority Date/Time Associated Diagnosis Comme nts XR DXA BONE DENSITY Routine 10/27/2019 2:55 PM Compression fr acture Results for this STUDY CDT of lumbar vertebra procedure are in with routine the results healing, unspecified section . lumbar vertebral level, subsequent encounter Osteopenia, unspecified location after 01/18/2019 Results XR DXA Bone Density Study (10/27/2019 2:55 PM CDT) Specimen Narrative Performed At FINAL REPORT [employer] EXAM: Bone mineral density study HISTORY: Compression fracture of lumbar vertebra with routine healing, unspecified lumbar vertebral le rocío, subsequent encounter Osteopenia, unspecified location, COMPARISON:Previous DEXA 07/13/2016. Baseline DEXA 07/13/2016 (lumbar spine and right hip only) DISCUSSION: Evaluation of the left forearm, right hi p, and lumbar spine was performed. The study is technically adequate. The patient's fracture risk is compared to an age-matched control. The patient indicates previous hip or ve rtebral fracture. LEFT FOREARM *Proximal 1/3 bone mineral density: 0.55 3 gm/cm2, T-score is -2.3, Z-score is 0.4. *No previous for comparison RIGHT HIP *Femoral neck bone mineral density: 0.59 8 gm/cm2, T-score is -2.3, Z-score is -0.1. *Total bone mineral density: 0.834 gm/cm 2, T-score is -0.9, Z-score is 1.0. *BMD change versus previous is -0.168 gm /cm2 LUMBAR SPINE *Total bone mineral density: 1.139 gm/cm 2, T-score is 0.8, Z-score is 3.3. *BMD change versus previous is -0.074 gm /cm2 IMPRESSION: 1.LEFT FOREARM: Bone mineralization by W HO Classification is osteopenia, the fracture risk is moderat e. 2.RIGHT HIP: Bone mineralization by WHO Classification is osteopenia, the fracture risk is moderate. 3.LUMBAR SPINE: Bone mineralization by W HO Classification is normal, the fracture risk is not increased. Compared to prior (baseline) exam there has been slight loss of bone mineral density of the lumbar spine and right hip. WHO classification is unchanged: normal compared to young a dults for the lumbar spine and osteopenic compared to young adults at the right hip. Signed: Yovany Bland MD Report Verified Date/Time:10/28/2019 10:00:07 Reading Location: [place] [address] - [id number] Procedure Note Interface, External Ris In - 10/28/2019 10:02 AM CDT FINAL REPORT EXAM: Bone mineral density study HISTORY: Compression fracture of lumbar vertebra with routine healing, unspecified lumbar vertebral le rocío, subsequent encounter Osteopenia, unspecified location, COMPARISON: Previous DEXA 07/13/2016. Artie alex DEXA 07/13/2016 (lumbar spine and right hip only) DISCUSSION: Evaluation of the left forearm, right hi p, and lumbar spine was performed. The study is technically adequate. The patient's fracture risk is compared to an age-matched control. The patient indicates previous hip or ve rtebral fracture. LEFT FOREARM *Proximal 1/3 bone mineral density: 0.55 3 gm/cm2, T-score is -2.3, Z-score is 0.4. *No previous for comparison RIGHT HIP *Femoral neck bone mineral density: 0.59 8 gm/cm2, T-score is -2.3, Z-score is -0.1. *Total bone mineral density: 0.834 gm/cm 2, T-score is -0.9, Z-score is 1.0. *BMD change versus previous is -0.168 gm /cm2 LUMBAR SPINE *Total bone mineral density: 1.139 gm/cm 2, T-score is 0.8, Z-score is 3.3. *BMD change versus previous is -0.074 gm /cm2 IMPRESSION: 1.LEFT FOREARM: Bone mineralization by W HO Classification is osteopenia, the fracture risk is moderat e. 2.RIGHT HIP: Bone mineralization by WHO Classification is osteopenia, the fracture risk is moderate. 3.LUMBAR SPINE: Bone mineralization by W HO Classification is normal, the fracture risk is not increased. Compared to prior (baseline) exam there has been slight loss of bone mineral density of the lumbar spine and right hip. WHO classification is unchanged: normal compared to young a dults for the lumbar spine and osteopenic compared to young adults at the right hip. Signed: Yovany Bland MD Report Verified Date/Time: 10/28/2019 1 0:00:07 Reading Location: [place] [address] Performing Organization Address City/State/Zipcode Phone Number GE RIS after 01/18/2019 Insurance Payer Benefit Plan / Subscriber ID Type Phone Address Group [employer] - MEDICARE [employer] MEDICARE HMO xxxxxxxx [address] [employer] CARE POS PPO J[place]IRE[place] [id number] Advance Directives For more information, please contact:[place] [address] [place], [place] [phone] Code Status Date Activated Date Inactivated Comments [...]
--- OUTSIDE RECORDS SUMMARY | 2020-01-19 16:23 | XMS REPORT | Continuity of Care Document ---
:1940 Author Organization [employer] Care Team Providers Name Role Phone [employer] Unavailable Un available Problems Problem Status Onset Classification Date Comments Sourc e Date Reported S72.032D - "DISPL Active OPID MIDCERVICAL FX L 017 [place] FEMUR LEFT FEMORAL NECK Active [facility] FX 017 [facility] RECTAL BLEEDING Active [place] 013 GI BLEEDING Active [facility] east 013 GI BLEED Active [facility] st 013 Hematochezia Active Problem 02/01/2017 Data [place] (finding) 013 migrated Medical from [facility], Centricity OPID on 09/18/14. [facility] Internal Active Problem 02/01/2017 Data [facility] hemorrhoids 013 migrated Medical without from [facility], complication Centricity OPID (disorder) on 09/18/14. [facility] Residual Active Problem 02/01/2017 Data [facility] hemorrhoidal skin 013 migrated Me dical tags (disorder) from [facility] er, Centricity OPID on 09/18/14. [facility] Cirrhosis of Active Problem 02/01/2017 Data [place] liver (disorder) 013 migrated Med ical from [facility], Centricity OPID on 09/18/14. [facility] Esophageal Active Problem 02/01/2017 Data [facility] varices 013 migrated Medical (disorder) from [facility], Centricity OPID on 09/18/14. [facility] Portal Active Problem 02/01/2017 Data [facility] hypertension 013 migrated Medical (disorder) from [facility], Centricity OPID on 09/18/14. [facility] Anemia (disorder) Resolved Problem 02/01/[address] [facility], OPID [facility] [place] Cir[place]osis - Res[place] Problem [place] [facility] [facility]order[facility], OPID [facility] [place] DM II [Diabetes Resolved Problem 02/01/2017 [facility] mellitus type Medica l II](Confirmed) Tommy r, OPID [facility] Hemorrhoids Resolved Problem [place] [facility] [facility], [facility],M [facility] Essential Resolved Problem 02/01/2017 [facility] hypertension Medical (disorder) Center, OPID [facility] 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[facility] neoplasm of liver Me dical (disorder) Center, OPID [facility] Metatarsal bone Active Problem 02/01/2017 [facility] fracture Medical (disorder) Center, OPID [facility] Diverticulum Resolved Problem 02/17/2013 [place] [facility] (morphologic abnormality) DM II [Diabetes Resolved Problem 02/17/2013 [place] mellitus type II] HTN Resolved Problem 02/17/2013 [place] [facility] 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 Diverticulosis Resolved Problem 01/31/2013 [place] GASTROINTEST Active [place] HEMORR NOS FRACTURE OF UNSP Active [facility] PART OF NECK OF [facility] LEFT FE Center Medications Medication Details Route Status Patient Ordering Order Source Instructions Provider Date tramadol 50 mg = 1 Active 01/11/ Kirk hydrochloride 50 tab, PO, Q6H, 2016 edical MG Oral Tablet PRN Pain Center Score 6-10, X 5 day, # 20 tab, 0 Refill(s) enoxaparin 30 30 mg = 0.3 Active 01/11/ [place] mg/0.3 mL mL, SUB-Q, 2017 Medical subcutaneous [id number], Center solution Stop date is 01/26/17, 0 Refill(s) Ergocalciferol 50,000 Active 01/11/ Kirk 99025 UNT Oral IntlUnit = 1 2016 [facility] stephenie Capsule cap, PO, Q7D, [...] and stir. Lactulose 667 Notes: (Same Inactive [facility] exas MG/ML Oral as:Chronulac) 2017 [facility] potassium Notes: (Same Inactive [facility] phosphate-sodium as: Phos-NaK) 2017 edical phosphate 155 Each 1.5 gm Cente r mg-350 mg oral pkt has 250mg tablet phosphorous. Mix w/2.5oz water and stir. Monobasic Notes: (Same Inactive [facility] potassium as: Phos-NaK) 2017 Medical phosphate 155 MG Each 1.5 gm Ce nter / Sodium pkt has 250mg Phosphate, phosphorous. Monobasic 350 MG Mix w/2.5oz Oral Tablet water and stir. Lovenox Notes: (Same No Longer [facility] as: Lovenox) Active 2017 Medical [place] Magnesium Notes: WASTE: Inactive [facility] s Sulfate F/P - Sink; E 2017 [facility] Trash Bin influenza virus Notes: (Same Inactive [facility] vaccine, as: Fluzone 2017 Medical inactivated Quadrivalent, [place] Fluarix Quadrivalent) For 3 years of age and older (0.5 mL IM) Shake well before use cyclobenzaprine Notes: (Same No Longer [facility] As: Flexeril) Active 2017 Medical [place] Ergocalciferol Notes: (Same No Longer [place] [address] UNT Oral as: Vitamin Active 2017 Medic al Capsule D) "Do Not Center Crush" Calcium Notes: No Longer [facility] Carbonate 1250 (calcium Active 2017 Medical MG / carbonate-vit Center Cholecalciferol D 400 UNT Chewable 500mg-400unit Tablet TAB) Same as: Oyster-D, OsCal-D Baclofen Notes: 5 mg No Longer [facility] =1/2 of 10 mg Active 2017 Medical Tab (Same As: [place] Lioresal) Cefazolin Notes: (Same No Longer [place] [...] 01/05/17 10:33:00 CDT neostigmine Route: IV, Inactive [facility] (ANES) Drug form: 2017 Medical INJ, ONCE, Center Stop date: 01/05/17 10:33:00 CDT calcium chloride Route: IV, Inactive [facility] (ANES) Drug form: 2016 Medical INJ, ONCE, Center Stop date: 01/05/17 10:33:00 CDT dexamethasone Route: IV, Inactive [place] (ANES) Drug form: 2017 Medical INJ, ONCE, Center Stop date: 01/05/17 10:02:00 CDT esmolol (ANES) Route: [place], [place] Drug form: 2017 Medical INJ, ONCE, Center Stop date: 01/05/17 9:07:00 CDT famotidine Route: IV, Inactive [facility] (ANES) Drug form: 2017 Medical INJ, ONCE, Center Stop date: 01/05/17 9:07:00 CDT ferrous sulfate Notes: Give No Longer [place] 325 MG Oral with food. Active 2017 Medical Tablet [Feosol] "Do Not Center Crush" Furosemide 20 MG Notes: (Same No Longer [facility] Oral Tablet as: Lasix) Active 2017 Medical [Lasix] May cause GI Center upset. Give with food or milk. Zetia Notes: (Same No Longer [facility] as: Zetia) Active 2017 Medical Center Cholecalciferol Notes: Same No Longer [facility] as : Vitamin Active 2017 Medical D3 Center Streptococcus Notes: Shake Inactive [place] pneumoniae well prior to 2017 Medical serotype 1 use (Same Center capsular antigen as: Prevnar diphtheria 13) [id number] protein conjugate vaccine / Streptococcus pneumoniae serotype 14 capsular antigen diphtheria [id number] protein conjugate vaccine / Streptococcus pneumoniae serotype 18C capsular antigen d Spironolactone Notes: (Same No Longer [place] As: Active 2017 Medical Aldactone) Center senna 8.6 mg Notes: (Same No Longer [place] oral tablet as: Senokot) Active 2017 [facility] Protonix Notes: Tablet No Longer [place] should not be Active 2017 [facility] chewed or Center crushed. (Same as: Protonix) phenylephrine Route: IV, Inactive [place] (ANES) Drug form: 2016 Medical INJ, ONCE, Center Stop date: 01/05/17 8:52:00 CDT lidocaine (ANES) Route: IV, Inactive [facility] Drug form: 2016 Medical INJ, ONCE, Center Stop date: 01/05/17 8:47:00 CDT propofol (ANES) Route: IV, Inactive [place] Drug form: 2016 Medical INJ, ONCE, Center Stop date: 01/05/17 8:47:00 CDT rocuronium Route: IV, Inactive [place] (ANES) Drug form: 2017 Medical INJ, ONCE, Center Stop date: 01/05/17 8:47:00 CDT ondansetron Route: IV, Inactive [facility] (ANES) Drug form: 2016 Medical INJ, ONCE, Center Stop date: 01/05/17 8:47:00 CDT ceFAZolin (ANES) Route: IV, Inactive [facility] Drug form: 2017 Medical INJ, ONCE, Center [...] 01/05/17 8:40:00 CDT Hydromorphone 0.5 mg, Inactive [place] Route: IVP, 2016 Medical Q5Min, Dosing Center Weight 81.818, kg, PRN Pain Score 7-10, Start date: 01/05/17 8:40:00 CDT, Duration: 4 doses or times, Stop date: Limited # of times Naloxone 0.4 mg, Inactive [place] Route: IVP, 2016 Medical Q2MIN, Dosing Center [...] water Center or juice. (Same as: Miralax) [place]-3 Acid Notes: (Same No Longer [place] Ethyl Esters as: MaxEPA, Active 2016 Medical (JAIL) 1000 MG [place] 3 fish Cente r Oral Capsule oil ) [Lovaza] Non-Formulary Drug NovoLOG 70/30 55 unit, Inactive [place] Route: SUB-Q, 2017 Medical BID-Before Center Meals, [...] 50% 25 gm, 50 mL, No Longer [place] Syringe Route: IVP, Active 2016 Medical Drug Form: Center INJ, Dosing Weight 81.818, kg, PRN, PRN Blood Glucose Results, Start date: 01/04/17 11:51:00 CDT, Duration: 30 day, Stop date: 02/03/17 11:50:00 CDT Glucagon 1 mg, Route: No Longer [place] IM, Drug Active 2016 Medical form: Center PDR/INJ, PRN, Dosing Weight 81.818, kg, PRN Blood Glucose Results, Start date: 01/04/17 11:51:00 CDT, Duration: 30 day, Stop date: 02/03/17 11:50:00 CDT Oxycodone Notes: (Same No Longer [place] Hydrochloride 5 as: Active 2016 Medical MG Oral Tablet Roxicodone) Cente r Lactulose 667 Notes: (Same No Longer [place] MG/ML Oral as:Chronulac) Active 2016 Medical Solution [place] Furosemide 20 MG 20 mg = 1 [place] Oral Tablet tab, PO, 2017 Medical [Lasix] Daily, # 30 Center tab, 0 Refill(s) Linagliptin 5 MG 5 mg = 1 tab, Active 01/04/ H [place] Oral Tablet PO, Daily, # 2016 Medical [Tradjenta] 30 tab, 3 Center Refill(s) lactulose 20 g = 1 Pack, PO, No Longer 01/04/ H [place] oral powder BID, # 20 gm, Active 2016 Medica l 0 Refill(s) Center Lovaza 1,000 mg =, No Longer [place] PO, BID, 0 Active 2016 Medical Refill(s) [place] NovoLOG 70/30 55 unit, Active [place] SUB-Q, 2017 Medical BID-Before Center Meals, 0 [...] 11:38:00 CDT Morphine Notes: (Same No Longer [place] as:MORPhine Active 2016 Medical Sulfate) Center Ondansetron Notes: (Same [place] Long[place] as: Zofran) Active 2016 Medical Center MEDICATION WASTE Product Size: 4 mg Product Wasted: ___ mg Ondansetron Notes: (Same Inactive [place] as: Zofran) 2017 Medical Center MEDICATION WASTE Product Size: 4 mg Product Wasted: ___ mg Morphine Notes: (Same Inactive [place] as:MORPhine 2016 Medical Sulfate) [place] Lasix 20 mg oral 20 mg, 1 [...] tab, Inactive [place] tablet Route: PO, 2012 [facility] Drug form: TAB, Daily, Dosing Weight 84.3, kg, Start date: 02/10/13 9:00:00, Duration: 30 day, Stop date: 03/11/13 9:00:00(Same as: Lasix) May cause GI upset. Give with food or milk. Tessalon Perles 100 mg, 1 No Longer [place] 02/10/ MH cap, Route: Active 2012 [facility] PO, Drug form: CAP, TID, Dosing Weight 84.3, kg, PRN Cough, Start date: 02/09/13 23:03:00, Duration: 30 day, Stop date: 03/11/13 23:02:00(Same As: Tessalon Perles) "Do Not Crush" spironolactone 50 mg, 2 tab, No Longer [place] MH Route: PO, Active 2012 [facility] Drug form: TAB, BID, Dosing Weight 84.3, kg, Start date: 02/09/13 17:00:00, Duration: 30 day, Stop date: 03/11/13 9:00:00(Same As: Aldactone) Protonix 40 mg, 1 tab, No Longer [place] MH Route: PO, Active 2012 [facility] Drug form: ECTAB, Q12H, Dosing Weight 84.3, kg, Start date: 02/08/13 21:00:00, Stop date: 03/10/13 9:00:00Tablet should not be chewed or crushed. (Same as: Protonix) Anusol-HC 2.5% 1 appl, No Longer Voloyiannis 02/08/ MH rectal cream Route: MA, Active 2012 [place] with applicator BID, Drug form: CRM, Start date: 02/08/13 17:00:00, Duration: 30 day, Stop date: 03/10/13 9:00:00 HC Pramoxine 1 appl, TOP, Active Voloyiannis 02/08/ MH 2.5%-1% topical TID, 28 gm, 2012 [place] cream Substitution Allowed, Maintenance, CRM nitroglycerin 0.4 mg, 1 No Longer [place] 02/08/ MH 0.4 mg tab, Route: Active 2012 [facility] sublingual SL, Drug tablet form: TAB, Q5Min, PRN Chest Pain, Start date: 02/08/13 9:05:00, Duration: 30 day, Stop date: 03/10/13 8:04:00(Same as:Nitroquick , Nitrostat) "Do Not Crush" Sublingual tablet atropine 0.5 mg, 5 mL, No Longer [place] Route: IVP, Active 2012 [facility] Drug form: INJ, PRN, PRN Bradycardia, Start date: 02/08/13 9:05:00, Duration: 30 day, Stop date: 03/10/13 8:04:00 Sodium Chloride 1,000 mL, No Longer Maxian 0.9% IV 1,000 mL Rate: 25 Active 2012 [facility] ast ml/hr, Infuse over: 40 hr, Route: IV, Dosing Weight 84.3 kg, Total Volume: 1,000, Start date: 02/06/13 14:38:00, Duration: 1 day, Stop date: 02/07/13 14:37:00 Lidocaine 15 ml, Route: No Longer [place]fr[place] Viscous 2% PO, Q3H, Drug Active 2012 [facility] mucous membrane form: SOLN, solution PRN Other -See Comment, Start date: 02/06/13 11:31:00, Duration: 30 day, Stop date: 03/08/13 11:30:00, post banding chest pain(Same as: Xylocaine Viscous) levothyroxine 50 microgram, No Longer [place] 1 tab, Route: Active 2012 [facility] PO, Drug form: TAB, Q6AM, Dosing Weight 84.3, kg, Start date: 02/06/13 6:00:00, Duration: 30 day, Stop date: 03/07/13 6:00:00Take 1 hour before or 2 hours after meal; Enteral feeds may interefere with the absorption of this medication.(S rosey as:Levothroid , Synthroid) Sodium Chloride 250 mL, Rate: Inactive [place] 0.9% IV 250 mL 30 ml/hr, 2012 [facility] Infuse over: 8.3 hr, Route: IV, Dosing Weight 84.3 kg, Total Volume: 250, Start date: 02/05/13 10:43:00, Duration: 12 hr, Stop date: 02/05/13 22:42:00 Evista 60 mg, PO, Active Daily, 2012 Substitution Allowed Evista 60 mg, 1 tab, No Longer [place] Route: PO, 2012 [facility] Drug form: TAB, Daily, Dosing Weight 84.3, [...] cap, No Longer [place] Route: PO, 2012 [facility] Drug form: CAP, Q8H, Dosing Weight 84.3, kg, Start date: 02/05/13 9:00:00, Duration: 30 day, Stop date: 03/07/13 8:00:00(Same as: Lyrica) Zetia 10 mg, 1 tab, No Longer [place] Route: PO, 2012 [facility] Drug form: TAB, Daily, Dosing Weight 84.3, kg, Start date: 02/05/13 9:00:00, Duration: 30 day, Stop date: 03/06/13 9:00:00(Same as: Zetia) Saline Flush 5 ml, Route: No Longer [place] 0.9% IVP, Drug Active 2012 [facility] Form: INJ, Dosing Weight 79.545, kg, PRN, PRN Line Flush, Start date: 02/05/13 0:57:00, Duration: 30 day, Stop date: 03/06/13 23:56:00(Same as: BD Posiflush) Sodium Chloride 1,000 mL, No Longer [place] 0.9% IV 1,000 mL Rate: 125 2012 [facility] ml/hr, Infuse over: 8 hr, Route: IV, Dosing Weight 79.545 kg, Total Volume: 1,000, Start date: 02/05/13 0:57:00, Duration: 30 day, Stop date: 03/07/13 0:56:00 octreotide 50 microgram, Inactive [place] Route: IVP, 2012 [facility] ONCE, Dosing Weight 79.545, kg, Start date: 02/05/13 0:57:00, Duration: 1 doses or times, Stop date: 02/05/13 0:57:00 pantoprazole 80 mg, Route: Inactive [place] IVP, ONCE, 2012 [facility] Dosing Weight 79.545, kg, for loading dose, Start date: 02/05/13 0:57:00, Duration: 1 doses or times, Stop date: 02/05/13 0:57:00 pantoprazole 80 100 mL, Rate: No Longer [place] mg + Sodium 10 ml/hr, Active 2012 [facility] Chloride 0.9% IV Infuse over: 100 mL 10 hr, Route: IV, Dosing Weight 79.545 kg, Total Volume: 100, Start date: 02/05/13 0:57:00, Duration: 30 day, Stop date: 03/07/13 0:56:00 octreotide 1,250 248.75 mL, No Longer [place] microgram + Rate: 10 Active 2012 [facility] Sodium Chloride ml/hr, Infuse 0.9% IV 248.75 over: 25 hr, mL Route: IV, Dosing Weight 79.545 kg, Total Volume: 250, Start date: 02/05/13 0:57:00, Duration: 30 day, Stop date: 03/07/13 0:56:00, Infuse at 50 mcg/hr. Final concentration = 50 mcg/10 mLInfuse at 50 mcg/hr. Final concentration = 50 mcg/10 mL insulin aspart 10 unit, 0.1 No Longer [place] mL, Route: Active 2012 [facility] SUB-Q, Drug form: SOLN, Sliding Scale, Dosing [...] Longer [place] Syringe mL, Route: Active 2012 [facility] IVP, Drug Form: INJ, Dosing Weight 79.545, kg, PRN, PRN Blood Glucose Results, Start date: 02/05/13 0:57:00, Duration: 30 day, Stop date: 03/06/13 23:56:00 glucagon 1 mg, Route: No Longer [place] IM, Drug Active 2012 [facility] form: PDR/INJ, PRN, Dosing Weight 79.545, kg, PRN Blood Glucose Results, Start date: 02/05/13 0:57:00, Duration: 30 day, Stop date: 03/06/13 23:56:00 Protonix 80 mg, Route: Inactive Lilianen IVP, Drug 2012 [facility] form: INJ, ONCE, Start date: 02/04/13 23:43:00, Stop date: 02/04/13 23:43:00For IV push reconstitute with 10 ml 0.9% sodium chloride and push over 2 minutes. (Same as: Protonix) pantoprazole 80 100 mL, Rate: No Longer [place] mg + Sodium 10 ml/hr, Active 2012 [facility] Chloride 0.9% IV Infuse over: 100 mL 10 hr, Route: IVPB, Dosing Weight 79.545 kg, Total Volume: 100, Infuse at 8 mg / hr for 72 hours for GI bleeding, Start date: 02/04/13 23:35:00, Duration: 72 hr, Stop date: 02/07/13 23:34:00 Sodium Chloride 20 mL, Rate: Inactive [place] 0.9% (Bolus) IV 240 ml/hr, 2012 [facility] 20 mL + Infuse over: pantoprazole 80 5 minutes, mg Route: IVP, Dosing Weight 79.545 kg, Total Volume: 20, Start date: 02/04/13 23:35:00, Duration: 1 doses or times, Stop date: 02/04/13 23:39:00 octreotide 1,250 248.75 mL, No Longer Humberto microgram + Rate: 10 Active 2012 [facility] Sodium Chloride ml/hr, Infuse 0.9% IV 248.75 over: 25 hr, mL Route: IV, Dosing Weight 79.545 kg, Total Volume: 250, Start date: 02/04/13 23:34:00, Duration: 30 day, Stop date: 03/06/13 23:33:00 Octreotide 50 microgram, Inactive [place] (bolus) 0.5 mL, 2012 [facility] Route: IVP, Drug form: INJ, ONCE, Dosing Weight 79.545, kg, Start date: 02/04/13 23:34:00, Duration: 1 doses or times, Stop date: 02/04/13 23:34:00(Same As: Sandostatin). Refrigerate. Centrum Silver 1 tab, PO, Active oral tablet Daily, 2012 tab, Substitution Allowed, Maintenance, TAB Align 4 mg, Daily, Active Substitution 2012 Allowed pantoprazole 40 mg, Route: Inactive [place]umber[place] IVP, ONCE, 2012 [facility] Dosing Weight 79.545, kg, For IV push reconstitute with 10 ml 0.9% sodium chloride and push over at least 3 minutes, Priority: STAT, Start date: 02/04/13 19:51:00, Stop date: 02/04/13 19:51:00 Saline Flush 5 mL, Route: No Longer Humber[place] 0.9% IVP, Drug Active 2012 [facility] Form: INJ, Dosing Weight 79.545, kg, PRN, PRN Line Flush, Start date: 02/04/13 19:51:00, Duration: 24 hr, Stop date: 02/05/13 19:50:00(Same as: BD Posiflush) sitagliptin 50 mg, 2 tab, Inactive Rahim Route: PO, 2012 [facility] Drug form: TAB, BID, Dosing Weight 84.091, kg, Start date: 01/27/13 9:00:00, Duration: 30 day, Stop date: 02/25/13 17:00:00Same as Chinia metFORmin 1000 1,000 mg, 2 Inactive Rahim mg oral tablet tab, Route: 2012 [facility] PO, Drug form: TAB, BID, Dosing Weight [...] IV 1,000 mL Rate: 25 Active 2012 [facility] ast ml/hr, Infuse over: 40 hr, Route: IV, Dosing Weight 84.091 kg, Total Volume: 1,000, Start date: 01/26/13 9:40:00, Duration: 1 day, Stop date: 01/27/13 9:39:00 GoLYTELY 4,000 ml, Inactive Jasmeet Route: PO, 2012 [facility] Drug Form: PDR/REC, Dosing Weight 84.091, kg, ONCE, Start date: 01/25/13 15:00:00, Duration: 1 doses or times, Stop date: 01/25/13 15:00:00(poly ethylene glycol electrolyte solution 4 Liter bottle) (Same as: Golytely, Colyte) NS IV, 30 ml/hr, No Longer Jasmeet PRN, PRN Active 2012 [facility] Blood Transfusion, Start date: 01/25/13 11:50:00, Duration: 1, 250 ml Vitamin K1 10 mg, 1 mL, Inactive Jasmeet Route: SUB-Q, 2012 [facility] Drug form: INJ, ONCE, Dosing Weight 84.091, kg, Start date: 01/25/13 10:31:00, Duration: 1 doses or times, Stop date: 01/25/13 10:31:00(Same as: Aqua-Mephyton , Vitamin K) Zetia 10 mg, 1 tab, No Longer [place] Route: PO, Active 2012 [facility] Drug form: TAB, Daily, Dosing Weight 79.545, kg, Start date: 01/24/13 9:00:00, Duration: 30 day, Stop date: 02/22/13 9:00:00(Same as: Zetia) Evista 60 mg, 1 tab, No Longer [place] Route: PO, Active 2012 [facility] Drug form: TAB, Daily, Dosing Weight 79.545, kg, Start date: 01/24/13 9:00:00, Duration: 30 day, Stop date: 02/22/13 9:00:00(Same as:Evista) "Do Not Crush" propranolol 40 mg, 1 tab, No Longer [place] Route: PO, Active 2012 [facility] Drug form: TAB, BID, Dosing Weight 79.545, kg, Start date: 01/24/13 9:00:00, Duration: 30 day, Stop date: 02/22/13 17:00:00Give with food. (Same as: Inderal) influenza virus 0.5 mL, Inactive SYSTEM vaccine, Route: IM, 2012 [facility] inactivated Drug Form: SUSP, Start date: 01/24/13 9:00:00, Stop date: 01/24/13 9:00:00 Protonix 40 mg, Route: No Longer Rahim IV, Drug Active 2012 [facility] form: INJ, Q12H, Dosing Weight 79.545, kg, Start date: 01/24/13 9:00:00, Duration: 30 day, Stop date: 02/22/13 21:00:00For IV push reconstitute with 10 ml 0.9% sodium chloride and push over 2 minutes. (Same as: Protonix) magnesium 2 gm, 50 mL, Inactive [place] MH sulfate 2 gm in Route: IV, 2012 [facility] Water 50 ml Drug form: INJ, ONCE, Dosing Weight 84.091, kg, Priority: Routine, Start date: 01/24/13 6:37:00, Stop date: 01/24/13 6:37:00 nitroglycerin 0.4 mg, 1 No Longer Rahim 01/24/ MH 0.4 mg tab, Route: Active 2012 [facility] sublingual SL, Drug tablet form: TAB, Q5Min, [...] MH oral capsule PO, TID, 90 [address] [facility] [address] cap, Substitution Allowed, CAP Lovaza oral 2,000 mg, 2 Active MH capsule cap, PO, BID, 2012 120 cap, Substitution Allowed, Maintenance, CAP Lidoderm 5% Substitution Active topical film Allowed 2012 (patch) levothyroxine 50 50 microgram, Active 01/24/ H mcg (0.05 mg) 1 tab, PO, [address] [facility] [address] oral tablet Daily, 30 tab, Substitution [...] cap, Active MH oral delayed PO, 2012 [facility] release capsule Substitution Allowed, CAP Sodium Chloride 250 mL, Rate: No Longer Grijalva 10/05/ MH 0.9% (titrate) Face Worker for Active 2012 [facility] 250 mL use with blood product administratio n., Dosing Weight 79.545, kg, Route: IV, Total Volume: 250, Priority: Routine, Duration: 30 day, Stop date: 02/22/13 22:44:00, Replace Every: 24 hr Sodium Chloride 250 mL, Rate: No Longer [place]al[place] 10/05/ MH 0.9% (titrate) call center recruiter for Active 2012 [facility] 250 mL use with blood product administratio n, Dosing Weight 79.545, kg, Route: IV, Total Volume: 250, Duration: 30 day, Stop date: 02/22/13 20:51:00, Replace Every: 24 hr Allergies, Adverse Reactions, Alerts No Known Medication Allergies Immunizations Immunization Date Site Status Last Updated Comments Sour ce Given influenza virus Right completed John DANIEL [place] vaccine, 7 Deltoid [facility] inactivated Center,[facility] pneumococcal Left completed Juan C Giles s 13-valent 7 [facility] Right completed [place]eferino DANIEL [place] vaccine, 3 Deltoid [facility] inactivated Center,M H OPID [facility] influenza [...] PANEL Potassium 3.3 3.5 - 5.1 01/11 [facility] CHEM PANEL Chloride Lvl 103 95 - 109 01/11 [facility] CHEM PANEL Sodium Lvl 142 135 - 145 01/11 [facility] CHEM PANEL Calcium Lvl 8.3 8.5 - 10.5 01/11 [facility] CHEM PANEL AGAP 12.3 10.0 - 01/11 . [facility] CHEM PANEL CO2 30 24 - 32 01/11 [facility] CHEM PANEL Glucose Lvl 136 70 - 99 01/11 [facility] CHEM PANEL BUN 7 7 - 22 01/11 [facility] CHEM PANEL Creatinine 0.56 0.50 - 01/11 [facility] Lv 1.40 [facility] HEMATOLOGY PT 16.1 12.0 - 01/11 [place] 14.7 /2016 [facility] HEMATOLOGY INR 1.26 0.85 - 01/11 [place] 1.17 [facility] CHEM PANEL Phosphorus 3.0 2.5 - 4.5 01/11 [facility] CHEM PANEL Magnesium 1.4 1.8 - 2.4 01/11 [facility] HEMATOLOGY Platelet 115 133 - 450 01/11 [facility] HEMATOLOGY MPV 9.2 7.4 - 10.4 01/11 [facility] HEMATOLOGY RDW 14.7 11.5 - 01/11 [place] 14.5 [facility] HEMATOLOGY MCHC 33.9 32.0 - 01/11 [place] 36.0 /2016 [facility] [place] HEMATOLOGY MCH 31.6 27.0 - 01/11 [place] 31.0 [facility] HEMATOLOGY MCV 93.3 80.0 - 01/11 [place] 98.0 [facility] HEMATOLOGY Hgb 10.6 12.0 - 01/11 [place] 16.0 [facility] HEMATOLOGY WBC 6.9 3.7 - 10.4 01/11 [facility] HEMATOLOGY Hct 31.2 36.0 - 01/11 [place] 48.0 [facility] HEMATOLOGY RBC 3.34 4.20 - 01/11 [place] 5.40 [facility] HEMATOLOGY Segs 56.2 45.0 - 01/11 [place] 75.0 /2017 [facility] HEMATOLOGY Lymphocytes 26.0 20.0 - 01/11 [place] 40.0 [facility] HEMATOLOGY Eosinophils 0.2 0.0 - 0.5 01/[place] # /2016 [facility] HEMATOLOGY Lymphocytes 1.8 1.0 - 5.5 01/11 [place] # /2016 [facility] HEMATOLOGY Monocytes # 1.0 0.0 - 0.8 01/[place] /2016 [facility] HEMATOLOGY Basophils 0.7 0.0 - 1.0 01/11 [facility] HEMATOLOGY Monocytes 14.1 2.0 - 12.0 01/11 [facility] HEMATOLOGY Eosinophils 3.0 0.0 - 4.0 01/11 [facility] HEMATOLOGY Segs-Bands # 3.9 1.5 - 8.1 01/11 [facility] CHEM PANEL Phosphorus 2.4 2.5 - 4.5 01/10 [facility] CHEM PANEL Magnesium 1.8 1.8 - 2.4 01/10 [facility] CHEM PANEL eGFR 63 01/10 [facility] Comment: The Medical eGFR is Center [...] PANEL CO2 27 24 - 32 01/10 [facility] CHEM PANEL Chloride Lvl 99 95 - 109 01/10 [facility] CHEM PANEL Calcium Lvl 8.7 8.5 - 10.5 01/10 [facility] CHEM PANEL AGAP 13.3 10.0 - 01/10 20.0 [facility] CHEM PANEL Glucose Lvl 152 70 - 99 01/10 [facility] CHEM PANEL Sodium Lvl 136 135 - 145 01/10 [facility] CHEM PANEL Creatinine 0.91 0.50 - 01/10 [facility] 1.40 [facility] CHEM PANEL Potassium 3.3 3.5 - 5.1 01/10 [facility] CHEM PANEL BUN 8 7 - 22 01/10 [facility] HEMATOLOGY MCH 31.9 27.0 - 01/10 [place] 31.0 [facility] HEMATOLOGY Platelet 129 133 - 450 01/10 [facility] HEMATOLOGY MPV 9.4 7.4 - 10.4 01/10 [facility] HEMATOLOGY MCHC 34.5 32.0 - 01/10 [place] 36.0 /2016 [facility] HEMATOLOGY RDW 14.8 11.5 - 01/10 [place] 14.5 [facility] HEMATOLOGY Hct 35.1 36.0 - 01/10 [place] 48.0 /2016 [facility] HEMATOLOGY WBC 7.6 3.7 - 10.4 01/10 [facility] HEMATOLOGY RBC 3.80 4.20 - 01/10 [place] 5.40 /2016 [facility] HEMATOLOGY Hgb 12.1 12.0 - 01/10 [place] 16.0 [facility] HEMATOLOGY MCV 92.5 80.0 - 01/10 [place] 98.0 /2016 [facility] HEMATOLOGY INR 1.19 0.85 - 01/10 [place] 1.17 [facility] HEMATOLOGY PT 15.4 12.0 - 01/10 [place] 14.7 /2016 [facility] HEMATOLOGY Lymphocytes 27.4 20.0 - 01/10 [place] 40.0 [facility] HEMATOLOGY Monocytes 13.0 2.0 - 12.0 01/10 [facility] HEMATOLOGY Eosinophils 3.3 0.0 - 4.0 01/10 [facility] HEMATOLOGY Segs 55.8 45.0 - 01/10 [place] 75.0 [facility] HEMATOLOGY Basophils 0.5 0.0 - 1.0 01/10 [facility] HEMATOLOGY Lymphocytes 2.1 1.0 - 5.5 01/[place] # /2016 [facility] HEMATOLOGY Monocytes # 1.0 0.0 - 0.8 01/10 [place] [facility] HEMATOLOGY Eosinophils 0.3 0.0 - 0.5 01/10 [place] # /2016 [facility] HEMATOLOGY Segs-Bands # 4.2 1.5 - 8.1 01/10 [place] [facility] CHEM PANEL Phosphorus 2.5 2.5 - 4.5 01/09 [facility] CHEM PANEL Magnesium 1.6 1.8 - 2.4 01/09 [facility] CHEM PANEL eGFR 89 01/09 Result [...] PANEL BUN 8 7 - 22 01/09 [facility] CHEM PANEL Sodium Lvl 135 135 - 145 01/09 [facility] CHEM PANEL Creatinine 0.62 0.50 - 01/09 [facility] 1.40 [facility] CHEM PANEL Chloride Lvl 98 95 - 109 01/09 [facility] CHEM PANEL CO2 27 24 - 32 01/09 [facility] CHEM PANEL Calcium Lvl 8.5 8.5 - 10.5 01/09 [facility] CHEM PANEL Potassium 3.6 3.5 - 5.1 01/09 Result [facility] Comment: [facility] Slightly Hemolyzed. CHEM PANEL Glucose Lvl 205 70 - 99 01/09 [facility] CHEM PANEL AGAP 13.6 10.0 - 01/09 [facility] 20.0 [facility] HEMATOLOGY Basophils # 0.1 0.0 - 0.2 01/09 [facility] HEMATOLOGY Eosinophils 0.3 0.0 - 0.5 01/[place] # [facility] HEMATOLOGY Monocytes # 1.0 0.0 - 0.8 01/09 [facility] HEMATOLOGY Lymphocytes 2.0 1.0 - 5.5 01/09 [place] # /2016 [facility] HEMATOLOGY Eosinophils 3.8 0.0 - 4.0 01/09 a s /2016 [facility] HEMATOLOGY Monocytes 13.6 2.0 - 12.0 01/09 [facility] HEMATOLOGY Lymphocytes 27.2 20.0 - 01/09 [place] 40.0 /2016 [facility] HEMATOLOGY Segs-Bands # 4.0 1.5 - 8.1 01/09 [facility] HEMATOLOGY Segs 54.7 45.0 - 01/09 [place] 75.0 [facility] HEMATOLOGY Basophils 0.7 0.0 - 1.0 01/09 [facility] HEMATOLOGY PT 15.3 12.0 - 01/09 [place] 14.7 [facility] HEMATOLOGY INR 1.18 0.85 - 01/09 [place] 1.17 [facility] HEMATOLOGY Platelet 119 133 - 450 01/09 [facility] HEMATOLOGY RDW 14.7 11.5 - 01/09 [place] 14.5 [facility] HEMATOLOGY MPV 9.6 7.4 - 10.4 01/09 [facility] HEMATOLOGY MCHC 34.6 32.0 - 01/09 [place] 36.0 [facility] HEMATOLOGY MCV 92.1 80.0 - 01/09 [place] 98.0 [facility] HEMATOLOGY Hct 33.2 36.0 - 01/09 [place] 48.0 [facility] HEMATOLOGY MCH 31.9 27.0 - 01/09 [place] 31.0 [facility] HEMATOLOGY RBC 3.60 4.20 - 01/09 [place] 5.40 /2016 [facility] HEMATOLOGY Hgb 11.5 12.0 - 01/09 [place] 16.0 [facility] HEMATOLOGY WBC 7.2 3.7 - 10.4 01/09 [facility] CHEM PANEL Total 6.2 6.4 - 8.4 01/09 [facility] Protein [facility] CHEM PANEL Albumin Lvl 2.7 3.5 - 5.0 01/09 s [facility] CHEM PANEL ALT 24 0 - 65 01/09 [facility] CHEM PANEL AST 40 0 - 37 01/09 [facility] CHEM PANEL Alk Phos 102 39 - 136 01/09 [facility] CHEM PANEL Bili Total 1.8 0.2 - 1.3 01/[address] [place] [address] CHEM PANEL Bili Direct 0.4 0.0 - 0.3 01/09 [facility] CHEM PANEL Globulin 3.5 2.7 - 4.2 01/[address] CHEM PANEL A/G Ratio 0.8 0.7 - 1.6 01/[address] CHEM PANEL Bili 1.4 0.0 - 1.0 01/09 [facility] Indirect [facility] HEMATOLOGY Basophils # 0.1 0.0 - 0.2 01/09 [facility] HEMATOLOGY Pos CO Value 0.400 01/09 [facility]2016 [facility] HEMATOLOGY Heparin Negative 1 Negative 01/09 Result [facility] Ab(AXEL) (01/08/17 8:08 PM) Comment: [facility] Medical assay detects Center heparin antibodies of IgG isotype. Antibodies of other isotypes have been reported to cause heparin-induc ed thrombocytope izabela. Therefore, if there is a strong clinical suspicion of HIT, additional study with a serotonin release assay is recommented. HEMATOLOGY Pat Od Value 0.082 01/09 [facility] CHEM PANEL Vitamin D, 28.6 30.0 - 01/07 [facility] 25-OH, Total 100.0 [facility] PARATHYROI PTH Intact 33.4 11.1 - 01/07 [facility] D PROFILE 79.5 [facility] CHEM PANEL B/C Ratio 17 6 - 25 01/[address] CHEM PANEL A/G Ratio 0.8 0.7 - 1.6 01/[address] CHEM PANEL Globulin 3.5 2.7 - 4.2 01/[address] CHEM PANEL ALT 32 0 - 65 01/[address] CHEM PANEL Alk Phos 126 39 - 136 01/[address] CHEM PANEL AST 58 0 - 37 01/[address] CHEM PANEL Total 6.3 6.4 - 8.4 01/05 [facility] Protein 2016 [facility] CHEM PANEL Albumin Lvl 2.8 3.5 - 5.0 01/05 [facility] CHEM PANEL Bili Total 1.6 0.2 - 1.3 01/[address] HEMATOLOGY Basophils # 0.1 0.0 - 0.2 01/05 a s [facility] SPECIAL Hgb A1C 8.7 <=5.6 % 01/05 [facility] CHEMISTRY /2016 [facility] HEMATOLOGY PTT 30.9 22.9 - 01/04 [place] 35.8 [facility] CHEM PANEL Bili Direct 0.4 0.0 - 0.3 01/04 a s [facility] CHEM PANEL Bili Total 1.6 0.2 - 1.3 01/04 [facility] CHEM PANEL A/G Ratio 0.8 0.7 - 1.6 01/04 [facility] CHEM PANEL Globulin 4.0 2.7 - 4.2 01/04 [facility] CHEM PANEL Bili 1.2 0.0 - 1.0 01/04 Indirect [facility] CHEM PANEL Total 7.4 6.4 - 8.4 01/04 Protein [facility] CHEM PANEL Alk Phos 135 39 - 136 01/04 [facility] CHEM PANEL Albumin Lvl 3.4 3.5 - 5.0 01/04 a s [facility] CHEM PANEL ALT 39 0 - 65 01/04 [facility] CHEM PANEL AST 58 0 - 37 01/04 [facility] BLOOD BANK Antibody Negative 01/04 [facility] RESULTS Scrn (01/04/17 5:12 AM) [facility] BLOOD BANK ABO/Rh O POS 01/04 [facility] RESULTS [facility] HEMATOLOGY K-time Rapid 1.0 0.6 - 2.3 01/04 [facility] HEMATOLOGY ACT (TEG) 97 86 - 118 01/04 [facility] HEMATOLOGY R-time Rapid 0.5 0.4 - 0.7 01/04 [facility] HEMATOLOGY [place] 0.3 01/04 [facility] HEMATOLOGY Angle Rapid 78 64 - 80 01/04 [facility] HEMATOLOGY Max 62 52 - 71 01/04 [facility] Amplitude [facility] HEMATOLOGY Estimated % 0.0 0.0 - 7.5 01/04 [place] [facility] HEMATOLOGY G-value 8.2 5.0 - 11.6 01/04 [facility] BEDSIDE Glucose POC 221 70 - 99 02/10 [place] <sup>1</sup>I GLUCOSE nterpretive [facility] TESTING Data: Upper Reportable Limit: 200 mg/dL. CHEMISTRY AGAP 12.3 10.0 - 02/10 Normal MH 20.0 [facility] CHEMISTRY eGFR 93 02/10 <sup>5</sup>R MH esult [facility] Comment: The eGFR is calculated using the [...] 0.6 0.5 - 1.4 02/10 Normal l [facility] CHEMISTRY BUN 2 - 02/10 LOW MH [facility] CHEMISTRY Glucose Lvl 179 70 - 99 02/10 [place] <sup>7</sup>I nterpretive [facility] Data: Adult reference range values reflect the clinical guidelines
of the [employer]. CHEMISTRY Calcium Lvl 8.1 8.5 - 10.5 02/10 LOW MH [facility] CHEMISTRY CO2 29 24 - 32 02/10 Normal [facility] CHEMISTRY Sodium Lvl 149 135 - 145 02/10 HI MH [facility] CHEMISTRY Chloride Lvl 111 95 - 109 02/10 HI MH [facility] CHEMISTRY Potassium 3.3 3.5 - 5.1 02/10 LOW Lvl [facility] HEMATOLOGY WBC X 10x3 7.3 3.7 - 10.4 02/10 Normal [facility] HEMATOLOGY RBC X 10x6 3.91 4.20 - 10 LOW MH 5.40 /2012 [facility] HEMATOLOGY Hgb 10.4 12.0 - 10/22 LOW MH 16.0 /2012 [facility] HEMATOLOGY Hct 32.9 36.0 - 02/10 LOW MH 48.0 /2012 [facility] HEMATOLOGY MPV 8.5 7.4 - 10.4 02/10 Normal MH /2012 [facility] HEMATOLOGY MCHC 31.6 32.0 - 02/10 LOW MH 36.0 /2012 [facility] HEMATOLOGY RDW 19.2 11.5 - 02/10 [place] MH 14.5 /2012 [facility] HEMATOLOGY MCV 84.1 81.0 - 02/10 Normal MH 99.0 /2012 [facility] HEMATOLOGY MCH 26.6 27.0 - 10 LOW MH 31.0 /2012 [facility] HEMATOLOGY Platelet 152 133 - 450 02/10 Normal MH /2012 [facility] HEMATOLOGY Basophils # 0.0 0.0 - 0.2 02/10 Normal MH /2012 [facility] HEMATOLOGY Eosinophils 0.2 0.0 - 0.5 02/10 Normal MH # /2012 [facility] HEMATOLOGY Basophils 0.3 0.0 - 1.0 02/10 Normal MH /2012 [facility] HEMATOLOGY Eosinophils 3.1 0.0 - 4.0 02/10 Normal MH /2012 [facility] HEMATOLOGY Monocytes 10.0 2.0 - 12.0 02/10 Normal MH /2012 [facility] HEMATOLOGY Lymphocytes 41.5 20.0 - 02/10 [place] MH 40.0 /2012 [facility] HEMATOLOGY Segs-Bands # 3.3 1.5 - 8.1 02/10 Normal MH [facility] HEMATOLOGY Monocytes # 0.7 0.0 - 0.8 02/10 Normal MH /2012 [facility] HEMATOLOGY Lymphocytes 3.0 1.0 - 5.5 02/10 Normal MH # /2012 [facility] HEMATOLOGY Segs 45.1 45.0 - 02/10 Normal MH 75.0 /2012 [facility] BEDSIDE Glucose POC 228 70 - 99 02/10 [place] <sup>2</sup>I GLUCOSE /2012 nterpretive [facility] TESTING Data: Upper Reportable Limit: 200 mg/dL. BEDSIDE Glucose POC 326 70 - 99 02/09 [place] <sup>3</sup>I GLUCOSE /2012 nterpretive [facility] TESTING Data: Upper Reportable Limit: 200 mg/dL. BEDSIDE Gluc POC Notify 02/09 GLUCOSE Comment 1 RN/ /2012 [facility] TESTING BEDSIDE Gluc POC Notify 02/09 GLUCOSE Comment 1 RN/ /2012 [facility] TESTING HEMATOLOGY Hgb 11.0 12.0 - 02/09 LOW MH 16.0 /2012 [facility] HEMATOLOGY Hct 34.6 36.0 - 02/09 LOW MH 48.0 /2012 [facility] BEDSIDE Gluc POC Notify 02/09 GLUCOSE Comment 1 RN/MD /2012 [facility] TESTING HEMATOLOGY Hgb 10.2 12.0 - 02/09 LOW MH 16.0 /2012 [facility] HEMATOLOGY Hct 32.1 36.0 - 02/09 LOW MH 48.0 /2012 [facility] HEMATOLOGY Platelet 131 133 - 450 10 LOW MH /2012 [facility] HEMATOLOGY RDW 18.8 11.5 - 10 HI MH 14. [facility] HEMATOLOGY MPV 8.8 7.4 - 10.4 10 Normal MH /2012 [facility] HEMATOLOGY MCV 83.0 81.0 - 10 Normal MH 99.0 /2012 [facility] HEMATOLOGY MCH 26.4 27.0 - 02/08 LOW MH 31.0 [facility] HEMATOLOGY MCHC 31.8 32.0 - 02/08 LOW MH 36.0 /2012 [facility] HEMATOLOGY RBC X 10x6 3.97 4.20 - 02/08 LOW MH 5.40 [facility] HEMATOLOGY WBC X 10x3 6.2 3.7 - 10.4 10 Normal MH /2012 [facility] HEMATOLOGY Platelet 133 133 - 450 10 Normal MH /2012 [facility] HEMATOLOGY MPV 8.7 7.4 - 10.4 10 Normal MH /2012 [facility] HEMATOLOGY RBC X 10x6 4.20 4.20 - 02/07 Normal MH 5.40 [facility] HEMATOLOGY WBC X 10x3 6.5 3.7 - 10.4 02/07 Normal MH /2012 [facility] HEMATOLOGY MCV 84.7 81.0 - 10 Normal MH 99.0 /2012 [facility] HEMATOLOGY MCH 26.7 27.0 - 10 LOW MH 31.0 [facility] HEMATOLOGY RDW 19.1 11.5 - 02/07 [place] MH 14. [facility] HEMATOLOGY MCHC 31.5 32.0 - 02/07 LOW MH 36.0 [facility] BLOOD BANK RBC product Product available 4 02/05 Normal <sup> 4</sup>R RESULTS (02/05/2013 08:40:00) esult [facility] Comment: 02/05/2013 08:57 [id number]
Spoke to Gertrudis 02/05/2013 08:57 ttn BLOOD BANK ABO/Rh O POS 02/05 MH RESULTS /2012 [facility] BLOOD BANK Antibody Negative 02/05 Normal RESULTS Scrn (02/04/2013 19:40:00) /2012 [facility] CHEMISTRY Phosphorus 2.7 2.5 - 4.5 02/05 Normal [facility] CHEMISTRY Magnesium 1.5 1.8 - 2.4 02/05 LOW Lvl /2012 [facility] CHEMISTRY eGFR 93 02/05 <sup>6</sup>R esult [place] [...] Total 0.6 0.2 - 1.3 02/05 Normal [facility] CHEMISTRY ASPARTATE 49 0 - 37 02/05 [facility] TRANSAMINASE [facility] CHEMISTRY Alk Phos 141 39 - 136 02/05 HI MH [facility] CHEMISTRY Albumin Lvl 3.1 3.5 - 5.0 02/05 LOW [facility] CHEMISTRY ALANINE 30 0 - 65 02/05 Normal AMINOTRANSFE [facility] RASE CHEMISTRY Calcium Lvl 8.0 8.5 - 10.5 02/05 LOW [facility] CHEMISTRY Total 7.2 6.4 - 8.4 02/05 Normal Protein [facility] CHEMISTRY CO2 27 24 - 32 02/05 Normal [facility] CHEMISTRY Glucose Lvl 160 70 - 99 02/05 [place] <sup>8</sup>I nterpretive [facility] Data: Adult reference range values reflect the clinical guidelines
of the [employer]. CHEMISTRY BUN 5 7 - [...] - 02/05 Normal <sup>10</sup> 35.8 /2013 Interpretive [facility] Data: Heparin Therapeutic Range: 57 - 92 Seconds HEMATOLOGY PROTIME 15.0 12.0 - 02/05 [place] 14.7 /2012 [facility] HEMATOLOGY INR 1.19 0.85 - 02/05 HI <sup>9</sup>I 1.17 nterpretive [facility] Data: RECOMMENDED RANGES FOR PROTIME INR:
2.0-3.0 for most medical and surgical thromboemboli c states.
2.5-3.5 for artificial heart valves and recurrent embolism.<br/ >
INR SHOULD BE USED ONLY FOR PATIENTS ON STABLE ANTICOAGULANT THERAPY. URINALYSIS UA <=1.0 0.1 - 1.0 02/05 Urobilinogen mg/dL [facility] URINALYSIS UA Color Ltyellow 02/05 [facility] URINALYSIS UA Bili Negative Negative 02/05 *NA* [facility] (02/04/2013 19:30:00) URINALYSIS UA Ketones Negative Negative 02/05 mg/dL [facility] URINALYSIS UA Blood Moderate Negative 02/05 ABN MH *ABN* [facility] (02/04/2013 19:30:00) URINALYSIS UA Leuk Est Negative Negative 02/05 Normal (02/04/2013 19:30:00) [facility] URINALYSIS UA Glucose 50 mg/dL Negative 02/05 [facility] URINALYSIS UA Sq Epi Occasional Few 02/05 MH /LPF [facility] URINALYSIS UA Nitrite Negative Negative 02/05 Normal (02/04/2013 19:30:00) [facility] URINALYSIS UA Turbidity Slight Clear 02/05 ABN *ABN* [facility] (02/04/2013 19:30:00) URINALYSIS UA pH 6.0 5.0 - 8.0 02/05 Normal [facility] URINALYSIS UA Spec Grav 1.003 <=1.030 02/05 Normal [facility] URINALYSIS UA Protein Negative Negative 02/05 Normal mg/dL [facility] URINALYSIS UA Mucus Few /LPF None Seen 02/05 [facility] URINALYSIS UA Bacteria Moderate None Seen 02/05 ABN /HPF [facility] URINALYSIS UA CaOx Sofie Occasional None Seen 02/05 /HPF [facility] URINALYSIS UA WBC 1 0 - 5 02/05 Normal [facility] URINALYSIS UA RBC 2 0 - 2 02/05 Normal [facility] BEDSIDE Gluc POC Notify 01/27 GLUCOSE Comment 2 RN/ /2012 [facility] TESTING BEDSIDE Glucose POC 291 70 - 99 01/27 HI <sup>1</sup>I GLUCOSE /2012 nterpretive [facility] TESTING Data: Upper Reportable Limit: 200 mg/dL. BEDSIDE Gluc POC Assess 01/27 GLUCOSE Comment 1 patient /2012 [facility] TESTING BEDSIDE Gluc POC Notify 01/27 GLUCOSE Comment 2 RN/MD /2012 [facility] TESTING BEDSIDE Gluc POC Assess 01/27 GLUCOSE Comment 1 patient /2012 [facility] TESTING BEDSIDE Glucose POC 236 70 - 99 10 HI <sup>2</sup>I MH GLUCOSE /2012 nterpretive [facility] TESTING Data: Upper Reportable Limit: 200 mg/dL. HEMATOLOGY RDW 20.0 11.5 - 10 HI MH 14.5 /2012 [facility] HEMATOLOGY MPV 8.5 7.4 - 10.4 10/ Normal MH /2012 [facility] HEMATOLOGY Platelet 148 133 - 450 10 Normal MH /2012 [facility] HEMATOLOGY WBC X 10x3 5.7 3.7 - 10.4 10 Normal MH /2012 [facility] HEMATOLOGY Hct 30.5 36.0 - 10 LOW MH 48.0 /2012 [facility] HEMATOLOGY Hgb 9.6 12.0 - 10 LOW MH 16.0 /2012 [facility] HEMATOLOGY RBC X 10x6 3.60 4.20 - 10 LOW MH 5.40 /2012 [facility] HEMATOLOGY MCH 26.6 27.0 - 1008 LOW MH 31.0 /2012 [facility] HEMATOLOGY MCV 84.5 81.0 - 1008 Normal MH 99.0 /2012 [facility] HEMATOLOGY MCHC 31.5 32.0 - 1008 LOW MH 36.0 /2012 [facility] HEMATOLOGY Segs 53.6 45.0 - 10/08 Normal MH 75.0 /2012 [facility] HEMATOLOGY Lymphocytes 32.8 20.0 - 1008 Normal MH 40.0 /2012 [facility] HEMATOLOGY Monocytes 11.3 2.0 - 12.0 10/ Normal MH /2012 [facility] HEMATOLOGY Eosinophils 1.9 0.0 - 4.0 10/ Normal MH /2012 [facility] HEMATOLOGY Basophils 0.4 0.0 - 1.0 10/08 Normal MH /2012 [facility] HEMATOLOGY Segs-Bands # 3.0 1.5 - 8.1 10/ Normal MH /2012 [facility] HEMATOLOGY Lymphocytes 1.9 1.0 - 5.5 10/08 Normal MH # /2012 [facility] HEMATOLOGY Monocytes # 0.6 0.0 - 0.8 01/27 Normal MH /2012 [facility] HEMATOLOGY Eosinophils 0.1 0.0 - 0.5 / Normal MH # /2012 [facility] HEMATOLOGY Basophils # 0.0 0.0 - 0.2 10/08 Normal MH /2012 [facility] BEDSIDE Gluc POC Assess 01/27 GLUCOSE Comment 1 patient /2012 [facility] TESTING BEDSIDE Glucose POC 233 70 - 99 01/27 HI <sup>3</sup>I GLUCOSE /2012 nterpretive [facility] TESTING Data: Upper Reportable Limit: 200 mg/dL. BEDSIDE Gluc POC Notify 01/27 GLUCOSE Comment 2 RN/ /2012 [facility] TESTING HEMATOLOGY Monocytes # 0.7 0.0 - 0.8 01/26 Normal MH /2012 [facility] HEMATOLOGY Lymphocytes 1.8 1.0 - 5.5 10 Normal MH # /2012 [facility] HEMATOLOGY Eosinophils 2.3 0.0 - 4.0 01/26 Normal /2012 [facility] HEMATOLOGY Basophils 0.2 0.0 - 1.0 01/26 Normal /2012 [facility] HEMATOLOGY Segs-Bands # 2.2 1.5 - 8.1 01/26 Normal /2012 [facility] HEMATOLOGY Segs 46.1 45.0 - 01/26 Normal MH 75.0 [facility] HEMATOLOGY Lymphocytes 37.9 20.0 - 01/26 Normal MH 40.0 [facility] HEMATOLOGY Monocytes 13.5 2.0 - 12.0 01/26 HI MH /2012 [facility] HEMATOLOGY Basophils # 0.0 0.0 - 0.2 01/26 Normal /2012 [facility] HEMATOLOGY Eosinophils 0.1 0.0 - 0.5 01/26 Normal MH # /2012 [facility] HEMATOLOGY PROTIME 16.5 12.0 - 01/26 HI 14.7 /2012 [facility] HEMATOLOGY INR 1.35 0.85 - 01/26 HI <sup>10</sup> MH 1.17 /2012 Interpretive [facility] Data: RECOMMENDED RANGES FOR PROTIME INR:
2.0-3.0 for most medical and surgical thromboemboli c states.
2.5-3.5 for artificial heart valves and recurrent embolism.<br/ >
INR SHOULD BE USED ONLY FOR PATIENTS ON STABLE ANTICOAGULANT THERAPY. HEMATOLOGY Hct 28.5 36.0 - 01/26 LOW MH 48.0 /2012 [facility] HEMATOLOGY MCV 85.8 81.0 - 10 Normal 99.0 /2012 [facility] HEMATOLOGY MCH 27.2 27.0 - 01/26 Normal MH 31.0 /2012 [facility] HEMATOLOGY MCHC 31.7 32.0 - 10 LOW MH 36.0 /2012 [facility] HEMATOLOGY Hgb 9.0 12.0 - 10 LOW 16.0 /2012 [facility] HEMATOLOGY Platelet 133 133 - 450 10/07 Normal MH /2012 [facility] HEMATOLOGY MPV 8.9 7.4 - 10.4 10/ Normal MH /2012 [facility] HEMATOLOGY RDW 20.0 11.5 - 10/07 HI MH 14.5 /2012 [facility] HEMATOLOGY WBC X 10x3 4.9 3.7 - 10.4 10/07 Normal MH /2012 [facility] HEMATOLOGY RBC X 10x6 3.32 4.20 - 10/07 LOW MH 5.40 /2012 [facility] TUMOR AFP 3.0 0.0 - 11.0 10/07 Normal MH MARKERS /2012 [facility] HEMATOLOGY WBC X 10x3 5.9 3.7 - 10.4 10/ Normal MH /2012 [facility] HEMATOLOGY MCV 85.3 81.0 - 10/07 Normal MH 99.0 /2012 [facility] HEMATOLOGY Platelet 153 133 - 450 10/ Normal MH /2012 [facility] HEMATOLOGY RDW 19.6 11.5 - 10/07 HI MH 14. /2012 [facility] HEMATOLOGY Hgb 9.5 12.0 - 1007 LOW MH 16.0 /2012 [facility] HEMATOLOGY RBC X 10x6 3.55 4.20 - 10/07 LOW MH 5.40 /2012 [facility] HEMATOLOGY Hct 30.3 36.0 - 10/07 LOW MH 48.0 /2012 [facility] HEMATOLOGY MPV 8.9 7.4 - 10.4 10 Normal MH /2012 [facility] HEMATOLOGY MCHC 31.4 32.0 - 10/07 LOW MH 36.0 /2012 [facility] HEMATOLOGY MCH 26.8 27.0 - 10/07 LOW MH 31.0 /2012 [facility] HEMATOLOGY Basophils # 0.0 0.0 - 0.2 10/ Normal MH /2012 [facility] HEMATOLOGY Monocytes # 0.7 0.0 - 0.8 10/07 Normal MH /2012 [facility] HEMATOLOGY Eosinophils 0.1 0.0 - 0.5 10/07 Normal MH # /2012 [facility] HEMATOLOGY Monocytes 11.7 2.0 - 12.0 10/07 Normal MH /2012 [facility] HEMATOLOGY Eosinophils 2.4 0.0 - 4.0 10/07 Normal MH /2012 [facility] HEMATOLOGY Basophils 0.6 0.0 - 1.0 10/07 Normal MH /2012 [facility] HEMATOLOGY Segs-Bands # 2.6 1.5 - 8.1 10/ Normal MH /2012 [facility] HEMATOLOGY Lymphocytes 2.4 1.0 - 5.5 10/07 Normal MH # /2012 [facility] HEMATOLOGY Lymphocytes 41.2 20.0 - 01/26 HI MH 40.0 [facility] HEMATOLOGY Segs 44.1 45.0 - 01/26 LOW MH 75.0 [facility] IMMUNOLOGY Hep B Core Negative Negative 01/25 MH Ab *NA* /2012 [facility] (01/25/2013 09:31:00) IMMUNOLOGY Hep C Ab Negative Negative 01/25 MH *NA* [facility] (01/25/2013 09:31:00) IMMUNOLOGY Hep Bs Ag Negative Negative 01/25 MH *NA* [facility] (01/25/2013 09:31:00) IMMUNOLOGY Hep A Tot Positive Negative 01/25 MH *NA* /2012 [facility] (01/25/2013 09:31:00) IMMUNOLOGY Hep Bs Ab 79.7 <=7.4 01/25 HI <sup>13</sup> MH Interpretive [facility] Data: <=7.4 mIU/mL------- -Negative for Anti-HBs. Not [...] /2012 [facility] Comment: 01/25/2013 09:23 [id number]
Called to _CRYSTAL at _01/25/2013 09:20 by [facility]_. CHEMISTRY Magnesium 1.7 1.8 - 2.4 01/25 LOW Lvl [facility] CHEMISTRY Phosphorus 1.9 2.5 - 4.5 01/25 LOW MH [facility] CHEMISTRY Troponin-I 0.04 0.00 - 01/25 Normal MH 0.40 /2012 [facility] CHEMISTRY Total CK 116 12 - 191 01/25 Normal [facility] CHEMISTRY CK MB 0.6 0.5 - 3.6 01/25 Normal MH [facility] CHEMISTRY CK-MB INDEX 0.5 0.0 - 2.5 01/25 Normal [facility] CHEMISTRY Troponin-I 0.04 0.00 - 10 Normal 0.40 /2012 [facility] CHEMISTRY Total CK 105 12 - 191 01/25 Normal [facility] CHEMISTRY CK MB 0.7 0.5 - 3.6 01/25 Normal [facility] CHEMISTRY CK-MB INDEX 0.7 0.0 - 2.5 01/25 Normal [facility] CHEMISTRY Chloride Lvl 107 95 - 109 01/24 Normal [facility] CHEMISTRY Potassium 3.6 3.5 - 5.1 01/24 Normal MH Lvl [facility] CHEMISTRY Sodium Lvl 143 135 - 145 01/24 Normal [facility] CHEMISTRY eGFR 93 01/24 <sup>6</sup>R [facility] [...] BUN 7 7 - 22 01/24 Normal [facility] CHEMISTRY Creatinine 0.6 0.5 - 1.4 01/24 Normal Lvl [facility] CHEMISTRY CO2 27 24 - 32 01/24 Normal [facility] CHEMISTRY Calcium Lvl 7.6 8.5 - 10.5 01/24 LOW [facility] CHEMISTRY Glucose Lvl 175 70 - 99 01/24 HI <sup>8</sup>I nterpretive [facility] Data: Adult reference range values reflect the clinical guidelines
of the [employer]. CHEMISTRY AGAP 12.6 10.0 - 01/24 Normal MH 20. [facility] CHEMISTRY Phosphorus 2.6 2.5 - 4.5 01/24 Normal MH [facility] CHEMISTRY Magnesium 1.6 1.8 - 2.4 10 LOW MH Lvl [facility] BLOOD BANK ABO/Rh O POS 01/24 RESULTS [facility] BLOOD BANK RBC product Product available 5 01/24 Normal <sup> 5</sup>R RESULTS (01/23/2013 23:33:26) /2012 [facility] Meri roberts Comment: 01/23/2013 23:39 [id number]
Called to Pancho PAULSON at 01/23/2013 23:39_ by _PB. CHEMISTRY B/C Ratio 17 6 - 25 01/24 Normal MH [facility] CHEMISTRY AGAP 13.8 10.0 - 01/24 Normal 20. [facility] CHEMISTRY Globulin 3.2 2.0 - 4.0 01/24 Normal [facility] CHEMISTRY A/G Ratio 0.9 0.7 - 1.6 01/24 Normal [facility] CHEMISTRY Potassium 3.8 3.5 - 5.1 01/24 Normal Lvl [facility] CHEMISTRY Chloride Lvl 106 95 - 109 01/24 Normal [facility] CHEMISTRY Sodium Lvl 142 135 - 145 01/24 Normal [facility] CHEMISTRY eGFR 88 01/24 <sup>7</sup>R ult [facility] Comment: The eGFR is calculated using the [...] CHEMISTRY ASPARTATE 46 0 - 37 01/24 [facility] TRANSAMINASE [facility] CHEMISTRY Alk Phos 168 39 - 136 01/24 HI MH [facility] CHEMISTRY Bili Total 0.6 0.2 - 1.3 01/24 Normal MH [facility] CHEMISTRY Albumin Lvl 2.9 3.5 - 5.0 01/24 LOW MH [facility] CHEMISTRY ALANINE 32 0 - 65 01/24 Normal AMINOTRANSFE /2012 [facility] RASE CHEMISTRY Calcium Lvl 7.8 8.5 - 10.5 01/24 LOW [facility] CHEMISTRY Total 6.1 6.4 - 8.4 01/24 LOW Protein [facility] CHEMISTRY CO2 26 24 - 32 01/24 Normal [facility] CHEMISTRY Creatinine 0.7 0.5 - 1.4 01/24 Normal Lvl [facility] CHEMISTRY Glucose Lvl 233 70 - 99 01/24 [facility] <sup>9</sup>I nterpretive [facility] Data: Adult reference range values reflect the clinical guidelines
of the [employer]. CHEMISTRY BUN 12 7 - 22 01/24 Normal [facility] HEMATOLOGY PROTIME 16.7 12.0 - 01/24 [facility] 14.7 /2012 [facility] HEMATOLOGY INR 1.37 0.85 - 01/24 [facility] <sup>11</sup> 1.17 /2012 Interpretive [facility] Data: RECOMMENDED RANGES FOR PROTIME INR:
2.0-3.0 for most medical and surgical thromboemboli c states.
2.5-3.5 for artificial heart valves and recurrent embolism.<br/ >
INR SHOULD BE USED ONLY FOR PATIENTS ON STABLE ANTICOAGULANT THERAPY. HEMATOLOGY aPTT 29.7 22.9 - 01/24 Normal <sup>12</sup> 35.8 /2012 Interpretive [facility] Data: Heparin Therapeutic Range: 57 - 92 Seconds BLOOD BANK ABO/Rh O POS 01/24 RESULTS /2012 [facility] BLOOD BANK Antibody Negative 01/24 [facility] RESULTS Scrn (01/23/2013 22:13:00) /2012 [facility] STOOL Occult Bld Positive Negative 01/24 [facility] TESTS Stl *ABN* /2012 [facility] (01/23/2013 21:10:00) [...] 1940; Age: 76 years y/o Female MR: [id number] * LEFT HIP (2 views) with frontal [...] appears be in goo d position. SL: [id number] Pelvis AP DX EXAM: XR PELVIS 1 VIEW 01/05/2017 [facility] DATE: 01/05/2017 7:15 AM CDT [employer] er INDICATION: POST-OP LUIS - POST-OP LEFT LUIS COMPARISON: Same day TECHNIQUE: A single AP supine radiograph of the pelvis FINDINGS: Left bipolar hemiarthroplasties seen i n satisfactory alignment. The soft tissues are unremarkable. IMPRESSION: Postoperative i maging demonstrates satisfactory appearance of left bipolar hemiarthroplasty. Pelvis AP DX EXAM: Pelvis AP DX, Pelvis AP DX 01/05/2017 [facility] DATE: 01/05/2017 7:14 AM CDT Cent er [...] Pelvis AP DX, Pelvis AP DX 01/05/2017 [facility] DATE: 01/05/2017 7:14 AM CDT Cent er [...] EXAM: XR LEFT ANKLE 3 VIEWS 01/04/2017 [facility] EXAM: XR LEFT FOOT 3 VIEWS [...] EXAM: XR LEFT ANKLE 3 VIEWS 01/04/2017 [facility] EXAM: XR LEFT FOOT [...] LEFT HIP 2 VIEW AND AP PELVIS [facility] EXAM: XR LEFT FEMUR 2 VIEWS [...] 2 VIEW AND AP PELVIS 01/05/20 17 [facility] EXAM: XR LEFT FEMUR 2 VIEWS Cent [...] ER Abdomen RLQ US HISTORY: Ascites. 02/09/2013 [facility] ultrasound abdomen w as performed to evaluate for possible paracentesis. Only scant ascites fluid is noted. As such, paracentesis was not performed at this time. SL:13 Bowel acute blood TAGGED RED BLOOD CELL SCAN NM 02/06/2013 [facility] loss imaging NM INDICATION: GI BLEED [...] ULTRASOUND WITH ASSOCIATED DOPPLER ST UDY: 01/25/2013 [facility] with Abdominal Doppler DISCUSSION: Best images [...] Date Comments Source Respitory Rate 18 01/11/2017 [facility]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
--- OUTSIDE RECORDS SUMMARY | 2020-01-19 16:28 | XMS REPORT | Continuity of Care Document ---
:1940 Author Organization [facility] t Address [address] [place] [address] Care Team Providers Name Role Phone LE Primary Care Physician Unavailable Vicente ALVAREZ Attending Clinician Unavailable Lubna BOLAÑOS Attending Clinician Jorge ENGLAND M Attending Clinician Benson Lynch Attending Clinician Jesus HOLDEN Attending Clinician LUBNA Attending Clinician Unavailable BUNNY Attending Clinician Unavailable Janine CALDWELL Attending Clinician JANINE Attending Clinician Unavailable Hemant ALVAREZ Attending Clinician Unavailable Eric Fairbanks Attending Clinician Harleen Fairbanks MD Attending Clinician Bunny ENGLAND Attending Clinician Ian Lynch Attending Clinician LYNSEY Attending Clinician Unavailable JOSE DE PAZ Attending Clinician Unavailable GABRIELLA Attending Clinician Unavailable Felicia Menon Attending Clinician Kim Attending Clinician RAQUEL PAINTER Attending Clinician Unavailable ERICA BRENNAN Attending Clinician Unavailable Minesh Cassidy Admitting Clinician JOSE DE PAZ Admitting Clinician Unavailable ERICA BRENNAN Admitting Clinician Unavailable Payers Payer Name Policy Type Policy Number Effective Date Expiration Date Balbina gabriel AETNA MEDICARE [id number] 2013 PPO 00:00:00 AETNA - xxxxxxxx [facility] MEDICARE MGD - Medical CAREAETNA Center MEDICARE HMO POS [id number] [address] Problems Condition Condition Condition Status Onset Resolution Last Treating Co mments Source Name Details Category Date Date Treatment Clinician Date Cholangioc Cholangioc Disease Active 2019-0 M D arcinoma arcinoma 11-18 Dmitriy o 00:00: n 00 History of History of Disease Active 2019-0 M D diabetes diabetes 11-18 Dmitriy o mellitus mellitus 00:00: n type 2 type 2 00 Osteopenia Osteopenia Disease Active 2019-0 M D 11-18 Anderso 00:00: n 00 Lumbago Lumbago Disease Active 2019-0 MD 11-18 Anderso 00:00: n 00 Diabetes Diabetes Disease Active MD mellitus mellitus 8 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 Acute Acute Disease Active respirator respirator 8-20 An derso y failure y failure 00:00: n with with 00 hypoxia hypoxia Hypertensi Hypertensi Disease Active 2019-0 M D on on 11-11 Anderso 00:00: n 00 S72.032D - Diagnosis Active 2016-042017-02-06 Memoria "DISPL 0-10 13:33:00 l MIDCERVICA S72.032D 00:01: He rmann L FX L - "DISPL 00 FEMUR MIDCERVICA L FX L FEMUR Active 01/29/2017 [facility] LEFT Diagnosis Active 2017-01-18 Mem oria FEMORAL -15 21:59:00 l NECK FX LEFT 00:00: Alejandro FEMORAL 00 NECK FX Active 01/04/2017 [facility] Awaiting Awaiting Disease [facility] - transplant transplant 00:00: Az dical 00 Center Angina at Angina at Disease Active [facility] rest rest 06-19 [facility] - 00:00: Medical 00 Rescue Pre-transp Pre-transp Disease Active Last C [facility] [...] Last [facility] ular ular 2 Assessmen [place] - carcinoma carcinoma 00:00: t & Plan: M edical 00 Continued Center locoregio nal therapy as indicated . Hypothyroi Hypothyroi Disease Active [facility] d d 01-11 [facility] - 00:00: Medical 00 Rescue Esophageal Esophageal Disease Active [facility] varices varices 01-11 [facility] - 00:00: Medical 00 Rescue Hepatic Hepatic Disease Active Last [facility] encephalop encephalop 01-11 [facility]men [place] - athy athy 00:00: t & Plan: Medical 00 Continue Center lactulose as prescribe d. 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 01-11 [facility] - thrombosis thrombosis 00:00: Az dical Rescue Anemia due Anemia due Disease Active [facility] to acute to acute 12-11 [facility] - blood loss blood loss 00:00: Az dical Rescue Hypotensio Hypotensio Disease Active [facility] n n 12-11 [facility] - 00:00: Medical 00 Center S/P TIPS S/P TIPS Disease Active [facility] (transjugu (transjugu 1-20 Cristine kes - lar lar 00:00: Medical intrahepat intrahepat 00 Ce nter ic ic portosyste portosyste susan shunt) susan shunt) RECTAL Diagnosis Active 2012-042013-02-04 [facility] oria BLEEDING 0-16 19:20:00 l RECTAL 09:00: [place] BLEEDING 00 Active 02/04/2013 [facility] Diagnosis Active 2012-042013-02-09 Mem oria BLEEDING 0-16 12:27:00 l GI 09:00: [place] BLEEDING 00 Active 02/04/2013 [facility] GI BLEED Diagnosis Active 2012-042013-01-27 emoria 0-04 17:20:00 l GI BLEED 12:00: Elie n 00 Active 01/23/2013 [facility] Cirrhosis Cirrhosis Disease Active [facility] 6[facility]04 [facility] - 00:00: Medical 00 Rescue Fatty Fatty Disease Active Overview: [facility] liver liver 6-04 ICD9 DX [facility] - disease, disease, 00:00: Pharmacy Clinical Coordinator Medi stephenie nonalcohol nonalcohol 00 Ce nter ic ic Portal Portal Disease Active [facility] hypertensi hypertensi 6-04 Cristine kes - on on 00:00: Medical 00 Center Diabetes Diabetes Disease Active Last [facility] mellitus mellitus 6-04 Assessmen [place] es - 00:00: t & Plan: Medical 00 Continue Center tight blood glucose control. Rectal Rectal Disease Active [facility] bleeding bleeding 6-04 [facility] - 00:[facility]: Medical 00 Rescue Hematochez Problem Active 2017-02-01 emoria ia 4-06 05:42:45 l (finding) 00:00: Alejandro Hematochez 00 ia (finding) Active 07/26/2012 Problem 02/01/2017 Data migrated from [facility] on 09/18/14. [facility], [facility] Internal Problem Active 2017-02-01 [facility] oria hemorrhoid 4-06 05:42:45 l s without Internal 00:00: Her dill complicati hemorrhoid 00 on s without (disorder) complicati on (disorder) Active 07/26/2012 Problem 02/01/2017 Data migrated from [facility] on 09/18/14. [facility] Residual Problem Active 2017-02-01 Mem oria hemorrhoid 4-06 05:42:45 l al skin Residual 00:00: Rut nn tags hemorrhoid 00 (disorder) al skin tags (disorder) Active 07/26/2012 Problem 02/01/2017 Data migrated from [employer] on 09/18/14. [facility], [facility]INarayan [facility] Cirrhosis Problem Active 2017-02-01 Me moria of liver 4-04 05:42:45 l (disorder) 00:00: Elie n Cirrhosis 00 of liver (disorder) Active 07/24/2012 Problem 02/01/2017 Data migrated from [employer] on 09/18/14. [facility], [facility] Esophageal Problem Active 2017-02-01 M emoria varices 4-04 05:42:45 l (disorder) 00:00: Elie n Esophageal 00 varices (disorder) Active 07/24/2012 Problem 02/01/2017 Data migrated from [employer] on 09/18/14. [facility]ZO [facility] Portal Problem Active 2017-02-01 Memor ia hypertensi 4-04 05:42:45 l on Portal 00:00: [place] (disorder) hypertensi 00 on (disorder) Active 07/24/2012 Problem 02/01/2017 Data migrated from [employer] on 09/18/14. [facility], LORENZO [facility] d Closed Closed Problem Active [facility] displaced displaced [...] left of left ity of hip hip [facility] Anemia Problem Resolve 2017-02-01 Malick aurora (disorder) d 05:42:45 l Anemia [place] (disorder) Resolved Problem 02/01/2017 [facility], LORENZO [place], [facility] Cirrhosis Problem Resolve 2017-02-01 M emoria - d 05:42:45 l non-alcoho Elie n lic Cirrhosis (disorder) - non-alcoho lic (disorder) Resolved Problem 02/01/2017 [facility], LORENZO ornelas, [facility] DM II Problem Resolve 2017-02-01 Malick aurora [Diabetes d 05:42:45 l mellitus DM II Alejandro type [Diabetes II](Confir mellitus med) type II](Confir med) Resolved Problem 02/01/2017 [facility], LORENZO ornelas Hemorrhoid Problem Resolve 2017-02-01 Memoria s d 05:42:45 l (disorder) Elie n Hemorrhoid s (disorder) Resolved Problem 02/01/2017 [facility], LORENZO ornelas,[facility] Essential Problem Resolve 2017-02-01 M emoria hypertensi d 05:42:45 l on Alejandro (disorder) Essential hypertensi on (disorder) Resolved Problem 02/01/2017 [facility], LORENZO ornelas Malignant Problem Resolve 2017-02-01 M emoria neoplasm d 05:42:45 l of liver Alejandro (disorder) Malignant neoplasm of liver (disorder) Resolved Problem 02/01/2017 [facility], LORENZO ornelas Diverticul Problem Resolve 2013-02-17 Memoria um d 01:01:34 l (morpholog Elie n ic Diverticul abnormalit um y) (morpholog ic abnormalit y) Resolved Problem 02/17/2013 [facility] DM II Problem Resolve 2013-02-17 Malick aurora [Diabetes d 01:01:34 l mellitus DM II Alejandro type II] [Diabetes mellitus type II] Resolved Problem 02/17/2013 [facility] HTN Problem Resolve 2013-02-17 Malick aurora d 01:01:34 l HTN Alejandro Resolved Problem 02/17/2013 [facility] Cirrhosis Problem Resolve 2013-01-31 M emoria - d 01:54:30 l non-alcoho Elie n lic Cirrhosis - non-alcoho lic Resolved Problem 01/31/2013 [facility] Diverticul Problem Resolve 2013-01-31 Memoria osis d 01:54:30 l [place] Diverticul osis Resolved Problem 01/31/2013 [facility] Metatarsal Problem Active 2017-02-01 M emoria bone 05:42:45 l fracture [place] (disorder) Metatarsal bone fracture (disorder) Active Problem 02/01/2017 [facility], [facility] GASTROINTE Diagnosis Active 2013-02-[address] HEMORR 12:27:00 l NOS Alejandro GASTROINTE ST HEMORR NOS Active [facility] FRACTURE Diagnosis Active 2017-01-18 M emoria OF UNSP 21:59:00 l PART OF FRACTURE Rut nn NECK OF OF UNSP LEFT FE PART OF NECK OF LEFT FE Active [facility] Allergies, Adverse Reactions, Alerts Allergy Allergy Status Severity Reaction(s) Onset Inactive Treating Comm ents Source Name Type Date Date Clinician Adhesive Drug Active Rash [facility] Allergy 10-12 [facility] 00:[facility]: Medical 00 Rescue Family History Family Member Diagnosis Comments Start Date Stop Date Source Natural brother Heart disease [facility] Natural father Heart disease [facility] Natural father Failure to thrive MD Galvez Natural mother Heart failure [facility] Natural mother COPD MD Thompson tena Social History Social Habit Start Date Stop Date Quantity Comments Source Sex Assigned At MD Izaguirre on Tobacco use and 2019-11-19 2019-11-19 Never used MD Izaguirre on exposure 00:00:00 00:00:00 Alcohol intake 2019-11-19 2019-11-19 Current MD Thompson tena 00:00:00 00:00:00 non-drinker of alcohol (finding) Social History 2017-01-04 2017-01-04 [facility] 22:46:20 22:46:20 Smoking Status Start Date Stop Date Source Never smoker MD Galvez Medications Ordered Filled Start Stop Current Ordering Indication Dosage Frequency Signature Comments Components Source Medication Medication Date Date Medication? Clinician (SIG) Name Name Bifidobacte 2019- Yes 4mg Take 4 mg M D rium 8-25 by mouth Anderso infantis 08:39: daily. n (ALIGN 10 ORAL) cholecalcif 2019- Yes 1000U Take 1,000 don, 8-25 Units by Anderso vitamin D3, 08:39: mouth n 1,000 units 10 daily. tablet ezetimibe 2020-0 Yes 10mg Take 10 mg MD (ZETIA) 10 8-25 by mouth Lm so mg tablet 08:39: daily. n 10 furosemide 2020-0 Yes 20mg 20 mg. MD (LASIX) 20 8-25 Anderso mg tablet 08:39: n 10 ferrous 2020-0 Yes 325mg 325 mg MD sulfate 325 8-25 twice Anderso mg (65 mg 08:39: daily. n elemental 10 iron per tablet) tablet FAMOTIDINE 2020-0 Yes 40mg Take 40 mg M D ORAL 8-25 by mouth Anderso 08:39: every n 10 evening. omega-3 2020-0 Yes 1g 1 g twice MD acid ethyl 8-25 daily. Anderso esters 08:39: n (LOVAZA) 1 10 g capsule pregabalin 2020-0 Yes 100mg Take 100 MD (LYRICA) 8-25 mg by Anderso 100 mg 08:39: mouth at n capsule 10 bedtime. propranolol 2020-0 Yes 40mg 40 mg MD (INDERAL) 8-25 twice Anderso 40 mg 08:39: daily. n tablet 10 spironolact 2020-0 Yes 50mg Take 50 mg MD one 8-25 by mouth Anderso (ALDACTONE) 08:39: daily. n 50 mg 10 tablet vitamin E 2020-0 Yes 400U Take 400 MD 400 units 8-25 Units by Dmitriy o capsule 08:39: mouth n 10 daily. insulin 2020-0 Yes type 2 50U Inject 50 MD aspart 8-25 diabetes Units Anderso protamine-i 08:39: mellitus under the n nsulin 10 skin twice aspart daily. (NovoLOG 70/30) 100 unit/mL (70-30) insulin pen multivit-mi 2020-0 Yes 1{tbl} Take 1 MD n/iron/foli 8-25 tablet by And erso c/lutein 08:39: mouth n (CENTRUM 10 daily. SILVER WOMEN ORAL) albuterol 2020-0 Yes Inhale by MD (VENTOLIN 8-25 mouth. Anderso HFA,PROAIR 08:39: n HFA) 90 10 mcg/puff inhaler fluticasone 2020-0 Yes Inhale by M D furoate-karen 8-25 mouth Anderso anteroL 08:39: daily. n 200-25 10 mcg/dose diazePAM Yes Other 2.5mg Take 0.5 MD (Valium) 5 7-28 specified tablets A nderso mg tablet 00:00: anxiety (2.5 mg) n 00 disorders by mouth once as needed for sedation for up to 1 dose. Take 30-45 minutes prior to MRI. Take additional 2.5 mg if needed. diazePAM Yes Other 2.5mg Take 0.5 MD (VALIUM) 5 9-16 specified tablets A nderso mg tablet 00:00: anxiety (2.5 mg) n 00 disorders by mouth once as needed (prior to MRI) for up to 1 dose. traMADol Yes Cholangioca 50mg Take 1 MD (ULTRAM) 50 8-30 rcinoma tablet (50 Anderso mg tablet 00:00: mg) by n 00 mouth every 6 (six) hours as needed for moderate pain or severe pain. blood sugar Yes MD diagnostic 3-17 Anderso (ONETOUCH 00:00: n ULTRA TEST) 00 strp TRADJENTA 5 2016-04 Yes TAKE 1 MD mg tab 0-06 TABLET BY Anderso 00:00: MOUTH n 00 DAILY tramadol Yes 50 mg = 1 Malick aurora hydrochlori -22 tab, PO, l de 50 MG 16:34: Q6H, PRN Rut nn Oral Tablet 00 Pain Score 6-10, X 5 day, # 20 tab, 0 Refill(s) enoxaparin Yes 30 mg = Malick aurora 30 mg/0.3 01-11 0.3 mL, l mL 16:34: SUB-Q, [place] subcutaneou 00 [id number], s solution Stop date is 01/26/17, 0 Refill(s) Ergocalcife Yes 50,000 Malick aurora rol [id number] 22 IntlUnit = l UNT Oral 16:34: 1 cap, PO, Her dill Capsule 00 Q7D, 0 Refill(s) Lactulose Yes 20 gm = 30 Me moria 667 MG/ML 9-22 mL, PO, l Oral 16:34: TID, PRN [place] Solution 00 Other -See Comment, 0 Refill(s) Monobasic No Notes: Memori a potassium - (Same as: l phosphate 22:00: Phos-NaK) Her dill 155 MG / 00 Each 1.5 Sodium gm pkt has Phosphate, 250mg Monobasic phosphorou 350 MG Oral s. Mix Tablet w/2.5oz water and stir. Lactulose No Notes: Memori a 667 MG/ML 01-10 (Same l Oral 21:47: as:Chronul [place] Solution 00 ac) potassium No Notes: Memori a phosphate-s 01-10 (Same as: l odium 19:00: Phos-NaK) [place] phosphate 00 Each 1.5 155 mg-350 gm pkt has mg oral 250mg tablet phosphorou s. Mix w/2.5oz water and stir. Monobasic No Notes: Memori a potassium 01-10 (Same as: l phosphate 17:57: Phos-NaK) Her dill 155 MG / 00 Each 1.5 Sodium gm pkt has Phosphate, 250mg Monobasic phosphorou 350 MG Oral s. Mix Tablet w/2.5oz water and stir. Lovenox No Notes: Memoria 01-09 (Same as: l 17:00: Lovenox) [place] Magnesium No Notes: Memori a Sulfate 01-09 WASTE: F/P l 16:47: - Sink; E [place] - Municipal Trash Bin influenza No Notes: Memori a virus 01-09 (Same as: l vaccine, 14:00: Fluzone Elie n inactivated 00 Quadrivale nt, Fluarix Quadrivale nt) For 3 years of age and older (0.5 mL IM) Shake well before use cyclobenzap No Notes: Malick aurora rine 01-09 (Same As: l 02:32: Flexeril) Alejandro Ergocalcife No Notes: Malick aurora rol [id number] 01-08 (Same as: l UNT Oral 21:00: Vitamin D) Her dill Capsule 00 "Do Not Crush" Calcium No Notes: Memoria Carbonate 01-07 (calcium l 1250 MG / 22:00: carbonate- He ann Cholecalcif 00 vit D don 400 500mg-400u UNT nit TAB) Chewable Same as: Tablet Oyster-D, OsCal-D Baclofen No Notes: 5 Memor ia 9-17 mg =1/2 of l 22:00: 10 mg Tab (Same As: Lioresal) Cefazolin No Notes: Memori a -16 (Same As: l 21:00: Ancef, Kefzol) Cefazolin FOR IV SET ONLY MEDICATION [...] dexamethaso No Route: IV, Memoria ne (ANES) 01-05 Drug form: l 15:02: INJ, ONCE, Stop date: 01/05/17 10:02:00 CDT esmolol No Route: IV, Malick aurora (ANES) 01-05 Drug form: l 14:07: INJ, ONCE, Stop date: 01/05/17 9:07:00 CDT famotidine No Route: IV, M emoria (ANES) 01-05 Drug form: l 14:07: INJ, ONCE, Stop date: 01/05/17 9:07:00 CDT ferrous No Notes: Memoria sulfate 325 9-16 Give with l MG Oral 14:00: food. "Do Herm bridgette Tablet 00 Not Crush" [Feosol] Furosemide No Notes: Memor ia 20 MG Oral 9-16 (Same as: l Tablet 14:00: Lasix) [place] [Lasix] 00 May cause GI upset. Give with food or milk. Zetia No Notes: Memoria 9-16 (Same as: l 14:00: Zetia) Alejandro 00 Cholecalcif No Notes: Malick aurora don 9-16 Same as : l 14:00: Vitamin D3 Alejandro 00 Streptococc No Notes: Malick aurora us 9-16 Shake well l pneumoniae 14:00: prior to Her dill serotype 1 00 use (Same capsular as: antigen Prevnar diphtheria 13) [id number] protein conjugate vaccine / Streptococc us pneumoniae serotype 14 capsular antigen diphtheria [id number] protein conjugate vaccine / Streptococc us pneumoniae serotype 18C capsular antigen d Spironolact No Notes: Malick aurora one -16 (Same As: l 14:00: Aldactone) Alejandro 00 senna 8.6 No Notes: Memori a mg oral 9-16 (Same as: l tablet 14:00: Senokot) Protonix No Notes: Memoria 9-16 Tablet l 14:00: should not [place] 00 be chewed or crushed. (Same as: Protonix) phenylephri No Route: IV, Memoria ne (ANES) 01-05 Drug form: l 13:52: INJ, ONCE, Alejandro 00 Stop date: 01/05/17 8:52:00 CDT lidocaine No Route: IV, Me moria (ANES) 01-05 Drug form: l 13:47: INJ, ONCE, Alejandro Stop date: 01/05/17 8:47:00 CDT propofol No Route: IV, Mem oria (ANES) 01-05 Drug form: l 13:47: INJ, ONCE, Stop date: 01/05/17 8:47:00 CDT rocuronium No Route: IV, M emoria (ANES) 01-05 Drug form: l 13:47: INJ, ONCE, Stop date: 01/05/17 8:47:00 CDT ondansetron 2016-0 No Route: IV, Memoria (ANES) 01-05 Drug form: l 13:47: INJ, ONCE, Stop date: 01/05/17 8:47:00 CDT ceFAZolin 0 No Route: IV, Me moria (ANES) 01-05 Drug form: l 13:47: INJ, ONCE, Stop date: 01/05/17 8:47:00 CDT fentaNYL 2016-0 No Route: IV, Mem oria (ANES) 01-05 Drug form: l 13:47: INJ, ONCE, Stop date: 01/05/17 8:47:00 CDT Insulin 2016-0 No 2 unit, Memoria regular 01-05 Route: l 13:40: SUB-Q, Sliding Scale, Dosing Weight 81.818, kg, PRN Blood Glucose Results, Start date: 01/05/17 8:40:00 CDT, Duration: 30 day, Stop date: 02/04/17 8:39:00 CDT Ondansetron 2016-0 No 4 mg, Memor ia 01-05 Route: l 13:40: IVP, ONCE, Dosing Weight 81.818, kg, PRN Nausea & Vomiting, Start date: 01/05/17 8:40:00 CDT Hydromorpho 2016-0 No 0.5 mg, Mem oria ne 01-05 Route: l 13:40: IVP, Alejandro 00 Q5Min, Dosing Weight 81.818, kg, PRN Pain Score 7-10, Start date: 01/05/17 8:40:00 CDT, Duration: 4 doses or times, Stop date: Limited # of times Naloxone 2017-0 No 0.4 mg, Memori a 01-05 Route: l 13:40: IVP, Alejandro 00 Q2MIN, Dosing Weight 81.818, kg, PRN Narcotic Reversal, Start date: 01/05/17 8:40:00 CDT, Duration: 8 doses or times, Stop date: Limited # of times Sodium 2017-0 No 1,000 mL, Memori a Chloride 9-16 Rate: 50 l 0.9% IV 13:40: ml/hr, Alejandro 1,000 mL 00 Infuse over: 20 hr, Route: IV, Dosing Weight 81.818 kg, Total Volume: 1,000, Start date: 01/05/17 8:40:00 CDT, Duration: 30 day, Stop date: 02/04/17 8:39:00 CDT Labetalol No 10 mg, Memori a 9-16 Route: l 13:40: IVP, [place] 00 Q5Min, Dosing Weight 81.818, kg, PRN Elevated BP, Start date: 01/05/17 8:40:00 CDT, Duration: 5 doses or times, Stop date: Limited # of times Hydralazine No 10 mg, Malick aurora 9-16 Route: l 13:40: IVP, [place] 00 Q20Min, Dosing Weight 81.818, kg, PRN Elevated BP, Start date: 01/05/17 8:40:00 CDT, Duration: 2 doses or times, Stop date: Limited # of times sodium No Route: IV, Memor ia chloride 9-16 Total l 0.9% 1000 12:45: Volume: Rut nn ml INJ 00 1,000, (ANES) Start date: 01/05/17 7:45:00 CDT, Stop date: 01/05/17 8:45:00 CDT Thyroxine No Notes: Memori a 9-16 Take 1 l 11:30: hour [place] 00 before or 2 hours after meal; Enteral feeds may interefere with the absorption of this medication .(Same as:Levothr oid, Synthroid) Lovenox No Notes: Memoria 9-16 (Same as: l 00:00: Lovenox) [place] Humalog Mix No Notes: Malick aurora 75/25 9-15 (Same as: l 22:57: Humalog Alejandro 00 Mix) WASTE: F/P - Black; E - Municipal Trash Bin Docusate No Notes: Memoria 9-15 (Same as: l 22:00: Colace) [place] 00 (Do Not Crush) Propranolol No Notes: Malick aurora 9-15 Give with l 22:00: food. Alejandro 00 (Same as: Inderal) Miralax No Notes: Memoria 9-15 Dissolve l 22:00: in 8 oz of water or juice. (Same as: Miralax) [place]-3 No Notes: Memoria Acid Ethyl 9-15 (Same as: l [place] 22:00: MaxEPA, Alejandro ([facility]) 1000 00 [place] 3 MG Oral fish oil ) Capsule [Lovaza] Non-Formul josy Drug NovoLOG No 55 unit, Memori a 70/30 9-15 Route: l 21:30: SUB-Q, [place] 00 BID-Before Meals, Dosing Weight 81.818, kg, Start date: 01/04/17 16:30:00 CDT, Duration: 30 day, Stop date: 02/03/17 7:30:00 CDT Humalog Mix No Notes: Malick aurora 75/25 9-15 (Same as: l 21:30: Humalog [place] 00 75/25) WASTE: F/P - Black; E - Municipal Trash Bin Lyrica No Notes: Memoria 9-15 (Same as: l 18:00: Lyrica) Alejandro 00 Insulin No 60 Memoria Lispro 9-15 units) l 16:51: WASTE: F/P Alejandro 00 - Black; E - Municipal Trash Bin Stable for 28 days at room temperatur e. Expires in days from ____Date Dextrose No 25 gm, 50 Malick aurora 50% Syringe 9-15 mL, Route: l 16:51: IVP, Drug Form: INJ, Dosing Weight 81.818, kg, PRN, [...] MG/ML 01-04 (Same l Oral 16:46: as:Chronul [place] Solution 00 ac) Furosemide Yes 20 mg = 1 Me moria 20 MG Oral 9-15 tab, PO, l Tablet 16:41: Daily, # [place] [Lasix] 00 30 tab, 0 Refill(s) Linagliptin Yes 5 mg = 1 Me moria 5 MG Oral 9-15 tab, PO, l Tablet 16:41: Daily, # [place] [Tradjenta] 00 30 tab, 3 Refill(s) lactulose No = 1 Pack, Mem oria 20 g oral 9-15 PO, BID, # l powder 16:41: 20 gm, 0 Alejandro 00 Refill(s) Lovaza No 1,000 mg Memoria 9-15 =, PO, l 16:41: BID, 0 Alejandro 00 Refill(s) NovoLOG Yes 55 unit, Memori a 70/30 9-15 SUB-Q, l 16:41: BID-Before [place] 00 Meals, 0 Refill(s) spironolact Yes 25 mg = 1 M emoria one 25 mg 9-15 tab, PO, l oral tablet 16:41: Daily, # He rmann 00 30 tab, 3 Refill(s) Cholecalcif No 1,000 Memor ia don 9-15 IntlUnit, l 16:41: PO, Daily, Alejandro 00 0 Refill(s) pantoprazol Yes 40 mg = 1 M emoria e 40 MG 9-15 tab, PO, l Enteric 16:41: Daily, # [...] 02/03/17 11:38:00 CDT Morphine No Notes: Memoria - (Same l 16:39: as:MORPhin [place] 00 e Sulfate) Ondansetron No Notes: Malick aurora 01-04 (Same as: l 16:39: Zofran) Alejandro 00 MEDICATION WASTE Product Size: 4 mg Product Wasted: ___ mg Ondansetron No Notes: Malick aurora 01-04 (Same as: l 10:13: Zofran) [place] 00 MEDICATION WASTE Product Size: 4 mg Product Wasted: ___ mg Morphine No Notes: Memoria - (Same l 10:13: as:MORPhin [place] 00 e Sulfate) insulin Yes 60U Inject 60 [facility] aspart 4-25 Units [facility] - (NOVOLOG) 06:28: subcutaneo Me dical 100 unit/mL 45 usly 2 Center InPn (two) times daily before meals . cholecalcif Yes 1000U QD Take 1,000 [facility] [...] 3 times daily as needed . propranolol Yes 40mg Q.5D Take 40 mg [facility] [...] mg tablet 16:05: daily. Medica l 48 Rescue furosemide Yes 20mg QD Take [address] (LASIX) 20 3-26 by mouth [facility] - MG tablet 16:05: daily. Medica l 48 Rescue levothyroxi Yes 50ug QD Take [address] [...] [place] tab, PO, l 14:24: Daily, 30 [place] 17 tab, Substituti on Allowed, TAB pantoprazol 2012-04 Yes Leeroy 40 mg, 1 Me moria e 40 mg 0-22 [place] tab, PO, l oral 14:24: Q12H, 60 Alejandro enteric 03 tab, coated Substituti tablet on Allowed, ECTAB benzonatate 2012-04 Yes Leeroy 100 mg, 1 M emoria 100 mg oral 0-22 [place] cap, PO, l capsule 14:23: TID, PRN, Rut nn 43 30 cap, Cough, Substituti on Allowed, CAP Lasix 40 mg 2012-04 No Leeroy 40 mg, 1 Me moria oral tablet 0-22 [place] tab, l 14:00: Route: PO, 00 Drug form: TAB, Daily, Dosing Weight 84.3, kg, Start date: 02/10/13 9:00:00, Duration: 30 day, Stop date: 03/11/13 9:00:00(Sa me as: Lasix) May cause GI upset. Give with food or milk. Tessalon 2012-04 No Leeroy 100 mg, 1 Malick aurora Perles 0-22 [place] cap, l 04:03: Route: PO, Drug form: CAP, TID, Dosing Weight 84.3, kg, PRN Cough, Start date: 02/09/13 23:03:00, Duration: 30 day, Stop date: 03/11/13 23:02:00(S rosey As: Tessalon Perlbobo) "Do Not Crush" spironolact 2012-04 No Leeroy 50 mg, 2 Me moria one 0-21 [place] tab, l 22:00: Route: PO, Drug form: TAB, BID, Dosing Weight 84.3, kg, Start date: 02/09/13 17:00:00, Duration: 30 day, Stop date: 03/11/13 9:00:00(Sa me As: Aldactone) Protonix 2012-04 No Leeroy 40 mg, 1 Memor ia 0-21 [place] tab, l 02:00: Route: PO, Drug form: ECTAB, Q12H, Dosing Weight 84.3, kg, Start date: 02/08/13 21:00:00, Stop date: 03/10/13 9:00:00Tab let should not be chewed or crushed. (Same as: Protonix) Anusol-HC 2012-04 No Theodoros 1 appl, Memoria 2.5% rectal 0-20 Voloyianni Route: MD, l cream with 22:00: s BID, Drug He rmann applicator 00 form: CRM, Start date: 02/08/13 17:00:00, Duration: 30 day, Stop date: 03/10/13 9:00:00 HC 2012-04 Yes Theodoros 1 appl, Memor ia Pramoxine 0-20 Voloyianni TOP, TID, l 2.5%-1% 19:01: s 28 gm, [place] topical 21 Substituti cream on Allowed, Maintenanc e, CRM nitroglycer 2012-04 No Leeroy 0.4 mg, 1 M emoria in 0.4 mg 0-20 [place] tab, l sublingual 14:05: Route: SL, H ermann tablet 00 Drug form: TAB, Q5Min, PRN Chest Pain, Start date: 02/08/13 9:05:00, Duration: 30 day, Stop date: 03/10/13 8:04:00([facility] as:Nitroqu ick, Nitrostat) "Do Not Crush" Sublingual tablet atropine 2012-04 No Leeroy 0.5 mg, 5 Malick aurora 0-20 [place] mL, Route: l 14:05: IVP, Drug Alejandro 00 form: INJ, PRN, PRN Bradycardi a, Start date: 02/08/13 9:05:00, Duration: 30 day, Stop date: 03/10/13 8:04:00 Sodium 2012-04 No C 1,000 mL, Malick aurora Chloride 0-18 Maxian [...] 0-18 [place] microgram, l 11:00: 1 tab, [place] 00 Route: PO, Drug form: TAB, Q6AM, [...] Memor ia 0-17 Daily, l 14:50: Substituti [place] 10 on Allowed Evista 2012-04 No Leeroy 60 mg, 1 Memoria 0-17 [place] tab, l 14:00: Route: PO, [place] 00 Drug form: TAB, Daily, Dosing Weight 84.3, kg, Start date: 02/05/13 9:00:00, Duration: 30 day, Stop date: 03/06/13 9:00:00(Sa me as:Evista) "Do Not Crush" propranolol 2012-04 No Leeroy 40 mg, 1 Me moria 0-17 [place] tab, l 14:00: Route: PO, [place] 00 Drug form: TAB, BID, Dosing Weight 84.3, kg, Start date: 02/05/13 9:00:00, Duration: 30 day, Stop date: 03/06/13 21:00:00Gi ve with food. (Same as: Inderal) Lyrica 2012-04 No Leeroy 75 mg, 1 Memoria 0-17 [place] cap, l 14:00: Route: PO, Alejandro 00 Drug form: CAP, Q8H, Dosing Weight 84.3, kg, Start date: 02/05/13 9:00:00, Duration: 30 day, Stop date: 03/07/13 8:00:00( me as: Lyrica) Zetia 2012-04 No Leeroy 10 mg, 1 Memoria 0-17 [place] tab, l 14:00: Route: PO, [place] 00 Drug form: TAB, Daily, Dosing Weight 84.3, kg, Start date: 02/05/13 9:00:00, Duration: 30 day, Stop date: 03/06/13 9:00:00([facility] as: Zetia) Saline 2012-04 No Leeroy 5 ml, Memoria Flush 0.9% 0-17 [place] Route: l 05:57: IVP, Drug Form: INJ, Dosing Weight 79.545, kg, PRN, PRN Line Flush, Start date: 02/05/13 0:57:00, Duration: 30 day, Stop date: 03/06/13 23:56:00(S rosey as: BD Posiflush) Sodium 2012-04 No Leeroy 1,000 mL, Memori a Chloride 0-17 [place] Rate: 125 l 0.9% IV 05:57: ml/hr, [place] 1,000 mL 00 Infuse over: 8 hr, Route: IV, Dosing Weight 79.545 kg, Total Volume: 1,000, Start date: 02/05/13 0:57:00, Duration: 30 day, Stop date: 03/07/13 0:56:00 octreotide 2012-04 No Leeroy 50 Memoria 0-17 [place] microgram, l 05:57: Route: [place] 00 IVP, ONCE, Dosing Weight 79.545, kg, Start date: 02/05/13 0:57:00, Duration: 1 doses or times, Stop date: 02/05/13 0:57:00 pantoprazol 2012-04 No Leeroy 80 mg, Malick aurora e 0-17 [place] Route: l 05:57: IVP, ONCE, Alejandro Dosing Weight 79.545, kg, for loading dose, Start date: 02/05/13 0:57:00, Duration: 1 doses or times, Stop date: 02/05/13 0:57:00 pantoprazol 2012-04 No Leeroy 100 mL, Mem oria e 80 mg + 0-17 [place] Rate: 10 l Sodium 05:57: ml/hr, [place] Chloride 00 Infuse 0.9% IV 100 over: [...] 0-17 [place] 0.1 mL, l 05:57: Route: [place] 00 SUB-Q, Drug form: SOLN, Sliding Scale, [...] 0-17 [place] 25 mL, l 05:57: Route: [place] 00 IVP, Drug Form: INJ, Dosing Weight 79.545, kg, PRN, PRN Blood Glucose Results, Start date: 02/05/13 0:57:00, Duration: 30 day, Stop date: 03/06/13 23:56:00 glucagon 2012-04 No Leeroy 1 mg, Memoria 0-17 [place] Route: IM, l 05:57: Drug form: Alejandro 00 PDR/INJ, PRN, Dosing Weight 79.545, kg, PRN Blood Glucose Results, Start date: 02/05/13 0:57:00, Duration: 30 day, Stop date: 03/06/13 23:56:00 Protonix 2012-04 No Pedrito 80 mg, Malick aurora 0-17 [place] Route: l 04:43: IVP, Drug Alejandro 00 form: INJ, ONCE, Start date: 02/04/13 23:43:00, Stop date: 02/04/13 23:43:00Fo r IV push reconstitu te with 10 ml 0.9% sodium chloride and push over 2 minutes. (Same as: Protonix) pantoprazol 2012-04 No Pedrito 100 mL, Memoria e 80 mg + 0-17 [place] Rate: 10 l Sodium 04:35: ml/hr, [place] Chloride 00 Infuse 0.9% IV 100 over: 10 mL hr, Route: IVPB, Dosing Weight 79.545 kg, Total Volume: 100, Infuse at 8 mg / hr for 72 hours for GI bleeding, Start date: 02/04/13 23:35:00, Duration: 72 hr, Stop date: 02/07/13 23:34:00 Sodium 2012-04 No Pedrito 20 mL, Memori a Chloride 0-17 [place] Rate: 240 l 0.9% 04:35: ml/hr, [place] (Bolus) IV 00 Infuse 20 mL + [...] 0-17 [place] microgram, l 04:34: 0.5 mL, [place] 00 Route: IVP, Drug form: INJ, ONCE, [...] mg, Memoria 0-17 Daily, l 00:55: Substituti Alejandro 11 on Allowed pantoprazol 2012-04 No Pedrito 40 mg, M emoria e 0-17 [place] Route: l 00:51: IVP, ONCE, [place] Dosing Weight 79.545, kg, For IV push reconstitu te with 10 ml 0.9% sodium chloride and push over at least 3 minutes, Priority: STAT, Start date: 02/04/13 19:51:00, Stop date: 02/04/13 19:51:00 Saline 2012-04 No Pedrito 5 mL, Memoria Flush 0.9% 0-17 [place] Route: l 00:51: IVP, Drug Alejandro 00 Form: INJ, Dosing Weight 79.545, kg, PRN, PRN Line Flush, Start date: 02/04/13 19:51:00, Duration: 24 hr, Stop date: 02/05/13 19:50:00(S rosey as: BD Posiflush) sitagliptin 2012-04 No Enayet 50 mg, 2 Memoria 0-08 Rahim tab, l 14:00: Route: PO, [place] 00 Drug form: TAB, BID, Dosing Weight 84.091, kg, Start date: 01/27/13 9:00:00, Duration: 30 day, Stop date: 02/25/13 17:00:00Sa me as Januvia metFORmin 2012-04 No Enayet 1,000 mg, M emoria 1000 mg 0-08 Rahim 2 tab, l oral tablet 14:00: Route: PO, Alejandro 00 Drug form: TAB, BID, Dosing Weight 84.091, [...] 1 day, Stop date: 01/27/13 9:39:00 GoLYTELY 2012-04 No Reilly K 4,000 ml, Memoria 0-06 Jasmeet Route: PO, l 20:00: Drug Form: [place] 00 PDR/REC, Dosing Weight 84.091, kg, ONCE, Start [...] 0-06 Jasmeet mL, Route: l 15:31: SUB-Q, Drug form: INJ, ONCE, Dosing Weight 84.091, kg, Start date: 01/25/13 10:31:00, Duration: 1 doses or times, Stop date: 01/25/13 10:31:00(S rosey as: Aqua-Mephy ton, Vitamin K) Zetia 2012-04 No Ashley N 10 mg, 1 Malick aurora 0-05 [place] tab, l 14:00: Route: PO, Drug form: TAB, Daily, Dosing Weight 79.545, kg, Start date: 01/24/13 9:00:00, Duration: 30 day, Stop date: 02/22/13 9:00:00(Sa me as: Zetia) Evista 2012-04 No Ashley N 60 mg, 1 Mem oria 0-05 [place] tab, l 14:00: Route: PO, Drug form: TAB, Daily, Dosing Weight 79.545, kg, Start date: 01/24/13 9:00:00, Duration: 30 day, Stop date: 02/22/13 9:00:00(Sa me as:Evista) "Do Not Crush" propranolol 2012-04 No Ashley N 40 mg, 1 Memoria 0-05 [place] tab, l 14:00: Route: PO, Drug form: TAB, BID, Dosing Weight 79.545, [...] Rahim Route: IV, l 14:00: Drug form: [place] 00 INJ, Q12H, Dosing Weight 79.545, kg, [...] Rahim mL, Route: l 07:14: IVP, Drug [place] 00 form: INJ, PRN, PRN Bradycardi a, Start date: 01/24/13 2:14:00, Duration: 30 day, Stop date: 02/23/13 1:13:00 acetaminoph 2012-04 No Enayet 650 mg, M emoria en 0-05 Rahim 20.3 mL, l 06:09: Route: PO, [place] 00 Drug form: LIQ, Q4H, Dosing Weight 84.091, kg, PRN Pain 1-3/Temp > 100.4 F, Start date: 01/24/13 1:09:00, Duration: 30 day, Stop date: 02/23/13 1:08:00Max acetaminop hen = 4000mg/day (4 gm/day). (Same as: Tylenol) ondansetron 2012-04 No Enayet 4 mg, 2 M emoria 0-05 Rahim mL, Route: l 06:09: IVP, Drug [place] 00 form: INJ, Q8H, Dosing Weight 84.091, kg, PRN Nausea & Vomiting, Start date: 01/24/13 1:09:00, Duration: 30 day, Stop date: 02/23/13 1:08:00([facility] as: Zofran) Zetia 10 mg 2012-04 Yes Ashley N 10 mg, 1 Memoria oral tablet 0-05 [place] tab, PO, l 04:29: Daily, 30 [place] 30 tab, Substituti on Allowed, TAB Voltaren 2012-04 Yes 1 appl, Memori a Topical 1% 0-05 TOP, QID, l topical gel 04:29: 100 gm, Her dill 19 Substituti on Allowed, GEL propranolol 2012-04 Yes Ashley N 40 mg, 1 Memoria 40 mg oral 0-05 [place] tab, PO, l tablet 04:29: BID, 180 Alejandro 00 tab, Substituti on Allowed, TAB Metamucil [...] 0-05 BID, 60 l oral tablet 04:27: tab, Elie n 20 Substituti on Allowed, Maintenanc e, TAB Feosol 325 2012-04 Yes 325 mg, Malick aurora mg oral 0-05 PO, Daily, l tablet 04:27: 30 tab, Alejandro 05 Substituti on Allowed famotidine 2012-04 Yes 40 mg, PO, M emoria 0-05 BID, 60 l 04:26: tab, [place] 34 Substituti on Allowed Evista 60 2012-04 [...] Time Observation Value Comments Source Systolic blood 2019-11-19 20:43:00 119 mm[Hg] pressure Diastolic blood 2019-11-19 20:43:00 59 mm[Hg] MD Maria Esther gascason pressure Heart rate 2019-11-19 20:43:00 66 /min MD Lm juarez Body temperature 2019-11-19 20:43:00 36.72 Hanna MD Dorothy jameson Respiratory rate 2019-11-19 20:43:00 18 /min MD Dorothy henao Body weight 2019-11-19 20:43:00 76.1 kg MD Lm juarez BMI 2019-11-19 20:43:00 30.48 kg/m2 MD Lm juarez Oxygen saturation in 2019-11-19 19:14:07 99 /min MD Galvez Arterial blood by Pulse oximetry Respitory Rate 2017-01-11 17:52:00 Memori al Alejandro Temperature Oral (F) 2017-01-11 17:52:00 98.5 F [facility] [place] Systolic (mm Hg) 2017-01-11 17:52:00 Malick rial [place] Diastolic (mm Hg) 2017-01-11 17:52:00 Mem orial Alejandro Heart Rate 2017-01-11 17:52:00 [facility] [place] Temperature Oral (F) 2017-01-11 13:27:00 98.4 F [facility] [place] Systolic (mm Hg) 2017-01-11 13:27:00 Malick rial [place] Diastolic (mm Hg) 2017-01-11 13:27:00 Mem orial [place] Respitory Rate 2017-01-11 13:27:00 Memori al [place] Heart Rate 2017-01-11 13:27:00 [facility] [place] Heart Rate 2017-01-11 09:05:00 [facility] [place] Respitory Rate 2017-01-11 09:05:00 Memori al [place] Systolic (mm Hg) 2017-01-11 09:05:00 Malick rial [place] Diastolic (mm Hg) 2017-01-11 09:05:00 Mem orial [place] Temperature Oral (F) 2017-01-11 09:05:00 98.5 F [facility] [place] Height 2017-01-04 19:54:00 157.48 cm [facility] Weight 2017-01-04 19:54:00 [facility] [place] BMI Calculated 2017-01-04 19:54:00 Memori al [place] BMI Calculated 2017-01-04 08:41:00 Memori al [place] Weight 2017-01-04 08:41:00 [facility] [place] Height 2017-01-04 08:41:00 157.48 cm [facility] Heart Rate 2013-02-10 12:53:00 [facility] [place] Respitory Rate 2013-02-10 12:53:00 Memori al [place] Systolic (mm Hg) 2013-02-10 12:53:00 Malick rial [place] Diastolic (mm Hg) 2013-02-10 12:53:00 Mem orial [place] Temperature Oral (F) 2013-02-10 12:53:00 98.3 F [facility] [place] Heart Rate 2013-02-10 09:29:00 [facility] [place] Respitory Rate 2013-02-10 09:29:00 Memori al [place] Diastolic (mm Hg) 2013-02-10 09:29:00 Mem orial [place] Systolic (mm Hg) 2013-02-10 09:29:00 Malick rial [place] Temperature Oral (F) 2013-02-10 09:29:00 98.4 F [facility] [place] Respitory Rate 2013-02-10 04:24:00 Memori al [place] Heart Rate 2013-02-10 04:24:00 [facility] [place] Temperature Oral (F) 2013-02-10 04:24:00 98.4 F [facility] [place] Diastolic (mm Hg) 2013-02-10 04:24:00 Mem orial [place] Systolic (mm Hg) 2013-02-10 04:24:00 Malick rial [place] Weight 2013-02-05 06:05:00 [facility] [place] Weight 2013-02-05 00:04:00 [facility] [place] Height 2013-02-05 00:04:00 157.48 cm [facility] [place] Heart Rate 2013-01-27 21:10:00 [facility] [place] Temperature Oral (F) 2013-01-27 21:10:00 97.6 F [facility] [place] Diastolic (mm Hg) 2013-01-27 21:10:00 Mem orial [place] Respitory Rate 2013-01-27 21:10:00 Memori al [place] Systolic (mm Hg) 2013-01-27 21:10:00 Malick rial [place] Diastolic (mm Hg) 2013-01-27 18:12:00 Mem orial [place] Respitory Rate 2013-01-27 18:12:00 Memori al [place] Systolic (mm Hg) 2013-01-27 18:12:00 Malick rial [place] Heart Rate 2013-01-27 18:12:00 [facility] [place] Temperature Oral (F) 2013-01-27 18:12:00 98.1 F [facility] [place] Diastolic (mm Hg) 2013-01-27 13:07:00 Mem orial [place] Systolic (mm Hg) 2013-01-27 13:07:00 Malick rial [place] Temperature Oral (F) 2013-01-27 13:07:00 98.3 F [facility] [place] Respitory Rate 2013-01-27 13:07:00 Memori al [place] Heart Rate 2013-01-27 13:07:00 [facility] [place] Weight 2013-01-24 06:00:00 [facility] [place] Height 2013-01-24 06:00:00 157.48 cm [facility] [place] Weight 2013-01-24 00:44:00 [facility] [place] Height 2013-01-24 00:44:00 160.02 cm [facility] [place] Procedures Procedure Date / Time Performing Clinician Source Performed COMPLETE BLOOD COUNT W/ 2019-11-19 20:17:00 Machelle Hollis MD A nderson DIFFERENTIAL COMPREHENSIVE METABOLIC 2019-11-19 20:17:00 Machelle Hollis MD A nderson PANEL CANCER ANTIGEN 19-9 2019-11-19 20:17:00 Machelle Hollis MD Lm son ALPHA FETOPROTEIN TUMOR 2019-11-19 20:17:00 Machelle Hollis MD A nderson MARKER MAGNESIUM LEVEL 2019-11-19 20:17:00 Machelle Hollis MD Lenny LACTATE DEHYDROGENASE 2019-11-19 20:17:00 Machelle Hollis MD And erson Results CBC 2019-11-19 20:17:00 Machelle Hollis MD MANUAL DIFFERENTIAL 2019-11-19 20:17:00 Machelle Hollis MD Lm son GLUCOSE LEVEL 2019-11-19 20:17:00 Machelle Hollis MD BLOOD UREA NITROGEN 2019-11-19 20:17:00 Machelle Hollis MD Lm son ELECTROLYTE PANEL 2019-11-19 20:17:00 Machelle Hollis MD Andadalido darinel SERUM CREATININE 2019-11-19 20:17:00 Machelle Hollis MD .GLOMERULAR FILTRATION 2019-11-19 20:17:00 Machelle Hollis MDson RATE CALCIUM LEVEL TOTAL 2019-11-19 20:17:00 Machelle Hollis MD Lm son ALBUMIN LEVEL 2019-11-19 20:17:00 Machelle Hollis MD ALKALINE PHOSPHATASE 2019-11-19 20:17:00 Machelle Hollis MD Compa rson ALANINE AMINOTRANSFERASE 2019-11-19 20:17:00 Machelle Hollis MD ASPARTATE AMINOTRANSFERASE 2019-11-19 20:17:00 Machelle Hollis TOTAL PROTEIN 2019-11-19 20:17:00 Machelle Hollis MD FRACTIONATED BILIRUBIN 2019-11-19 20:17:00 Machelle Hollis MD MRI ABDOMEN W WO CONTRAST 2019-11-19 18:52:21 Marina Mehta MD XR DXA BONE DENSITY STUDY 2019-10-27 14:55:00 Lizett [place] [facility] COMPLETE BLOOD COUNT W/ 2019-03-13 18:33:53 Marina Mehta MD DIFFERENTIAL COMPREHENSIVE METABOLIC 2019-03-13 18:33:53 Marina Mehta MD PANEL Results CBC 2019-03-13 18:33:53 Marina Mehta MD n MANUAL DIFFERENTIAL 2019-03-13 18:33:53 Marina Mehta MD And erson GLUCOSE LEVEL 2019-03-13 18:33:53 Marina Mehta MD Andfrance n BLOOD UREA NITROGEN 2019-03-13 18:33:53 Marina Mehta MD And erson ELECTROLYTE PANEL 2019-03-13 18:33:53 Marina Mehta MD Lm son SERUM CREATININE 2019-03-13 18:33:53 Marina Mehta MD on .GLOMERULAR FILTRATION 2019-03-13 18:33:53 Marina Mehta MD RATE CALCIUM LEVEL TOTAL 2019-03-13 18:33:53 Marina Mehta MD And erson ALBUMIN LEVEL 2019-03-13 18:33:53 Marina Mehta MD ALKALINE PHOSPHATASE 2019-03-13 18:33:53 Marina Mehta MD derson ALANINE AMINOTRANSFERASE 2019-03-13 18:33:53 Marina Mehta ASPARTATE AMINOTRANSFERASE 2019-03-13 18:33:53 Marina Mehta MD TOTAL PROTEIN 2019-03-13 18:33:53 Marina Mehta MD FRACTIONATED BILIRUBIN 2019-03-13 18:33:53 Marina Mehta MD MRI ABDOMEN W WO CONTRAST 2019-03-12 16:46:00 Marina Mehta MD [U] XRAY HIP UNILATERAL 2019-01-07 00:00:00 [facility] [place] MIN 2 VWS LEFT [id number] [facility] [U] XRAY HIP UNILATERAL 2019-01-02 00:00:00 [facility] [place] MIN 2 VWS LEFT [id number] Physicians [U] XRAY HIP UNILATERAL 2018-01-01 00:00:00 [facility] [place] MIN 2 VWS LEFT [id number] Physicians [U] XRAY HIP UNILATERAL 2017-12-20 00:00:00 [facility] [place] MIN 2 VWS LEFT [id number] Physicians [U] XRAY HIP UNILATERAL 2017-08-21 00:00:00 [facility] [place] MIN 2 VWS LEFT [id number] Physicians [U] XRAY FOOT MIN 3 VWS 2017-05-29 00:00:00 [facility] [place] LEFT [id number] Physicians [U] XRAY HIP UNILATERAL 2017-05-23 00:00:00 [facility] [place] MIN 2 VWS RIGHT [id number] Physicians Endoscopic Excision or 2013-02-06 05:00:00 Baljinder Allen Destruction of Lesion or Tissue of Esophagus Transfusion of Packed 2013-02-05 05:00:00 Alessandro Mckeon Cells Colonoscopy 2013-01-26 05:00:00 Angeles dill Colonoscopy 2013-01-26 05:00:00 Angeles Dumont [facility] Endoscopic Excision or 2013-01-26 05:00:00 Baljinder Allen Destruction of Lesion or Tissue of Esophagus Transfusion of Packed 2013-01-24 05:00:00 Alessandro al Alejandro Cells Appendectomy [facility] Cholecystectomy [facility] Hysterectomy [facility] Laminectomy [facility] TIPS - Transjugular [facility] dill intrahepatic portosystemic shunt Appendectomy [facility] Hysterectomy [facility] Plan of Care Planned Activity Planned Date Details Comments Source Future Scheduled 2019-12-22 INFLUENZA VACCINE (#1) [facility] Test 00:00:00 [code = INFLUENZA Medical Ce nter VACCINE (#1)] Future Scheduled 2017-03-04 PNEUMOCOCCAL [address]+ [facility] - Test 00:00:00 HIGH/HIGHEST RISK (2 [facility] 2 - PPSV23) [code = PNEUMOCOCCAL 65+ HIGH/HIGHEST RISK (2 of 2 - PPSV23)] Future Scheduled 2016-11-[address] [facility] - Test 00:00:00 measurement Medical Center (procedure) [code = 65446590] Future Scheduled 2008-12-[address] [facility] - Test 00:00:00 WELLNESS (YEAR 2 or Medical Center FIRST YEAR if no IPPE) [code = MEDICARE ANNUAL WELLNESS (YEAR 2 or FIRST YEAR if no IPPE)] Future Scheduled 1950 DIABETIC EYE EXAM [facility] - Test 00:00:00 [code = DIABETIC EYE Medical Center EXAM] Future Scheduled [address] [facility] [facility] - Test 00:00:00 examination Medical Center (regime/therapy) [code = 140455256] Future Scheduled 1950 Urine screening for [facility] - Test 00:00:00 protein (procedure) Medical Center [code = 589919178] Encounters Start End Encounter Admission Attending Care Care Encounter Source Date/Time Date/Time Type Type Clinicians Facility Department ID 2019-11-19 Outpatient FAUSTINO HARMON [id number] 11:55:51 Andadalido n 2019-11-23 2019-11-23 Outpatient MIREYA LINDSEY MDA, MDA [id number] 00:00:00 00:00:00 Dmitriy o n 2019-11-19 2019-11-19 Outpatient MIREYA LINDSEY MDA, MDA [id number] 15:19:54 15:19:54 Dmitriy milton tena 2019-11-19 2019-11-19 Outpatient EL BUNNY, MDA MDA [id number] MD 15:02:03 15:18:13 MACHELLE Hopeers o n 2019-11-19 2019-11-19 Outpatient EL HALLADAY, MDA MDA [id number] MD 11:25:38 11:25:38 MARINA Izaguirre o n 2019-11-19 2019-11-19 Outpatient EL HALLADAY, MDA MDA [id number] 00:00:00 00:00:00 MARINA Hopeers o n 2019-11-19 2019-11-19 Outpatient EL LE, PHAT MDA MDA [id number] MD 00:00:00 00:00:00 Dmitriy o darinel 2019-11-06 2019-11-06 Outpatient EL HALLADAY, MDA MDA [id number] MD 00:00:00 00:00:00 MARINA Izaguirre o darinel 2019-11-06 2019-11-06 Outpatient EL BUNNY, MDA MDA [id number] MD 00:00:00 00:00:00 MACHELLE Hopeers o darinel 2019-11-06 2019-11-06 Outpatient EL LE, PHAT MDA MDA [id number] MD 00:00:00 00:00:00 Dmitriy tena 2019-11-05 2019-11-05 Outpatient EL HALLADAY, MDA MDA [id number] MD 00:00:00 00:00:00 MARINA Hopeers o n 2019-11-05 2019-11-05 Outpatient EL LE, PHAT MDA MDA [id number] MD 00:00:00 00:00:00 Dmitriy o darinel 2019-11-05 2019-11-05 Outpatient EL BUNNY, MDA MDA [id number] MD 00:00:00 00:00:00 MACHELLE Hopeers o n 2019-11-05 2019-11-05 Outpatient EL HALLADAY, MDA MDA [id number] MD 00:00:00 00:00:00 MARINA Hopeers o n 2019-11-05 2019-11-05 Outpatient EL LE, PHAT MDA MDA [id number] MD 00:00:00 00:00:00 Dmitriy o darinel 2019-11-05 2019-11-05 Outpatient EL BUNNY, MDA MDA [id number] MD 00:00:00 00:00:00 MACHELLE Izaguirre milton tena 2019-10-27 2019-10-27 Office [place] [id number] 12:40:52 14:00:56 Visit Lizett Canseco AMBULATOR [id number] 2019-01-14 2019-01-14 Appointmen ANN MENON [facility] [id number] Univers 13:15:00 13:15:00 t; MILAGROS MENON Trauma ity o f ANDREW, M.D. [facility] 2019-01-07 2019-01-07 Appointmen ANN MENON Orthopedics [id number] Univers 13:00:00 13:00:00 t; MILAGROS MENON Trauma ity o f ANDREW, M.D. [facility] 2018-01-08 2018-01-08 Appointmen ANN MENON Orthopedics [id number] Univers 13:00:00 13:00:00 t; MILAGROS MENON ity o f ANDREW, M.D. [facility] ans 2018-01-01 2018-01-01 Appointmen ANN MENON Orthopedics [id number] Univers 13:00:00 13:00:00 t; MILAGROS MENON ity o f ANDREW, M.D. [facility] ans 2017-08-28 2017-08-28 Appointmen ANN MENON Orthopedics [id number] Univers 13:00:00 13:00:00 t; MILAGROS MENON ity o f ANDREW, M.D. [facility] ans 2017-05-29 2017-05-29 Appointmen ANN MENON [facility]opedics [id number] Univers 13:00:00 13:00:00 t; MILAGROS MENON ity o f ANDREW, M.D. [facility] 2017-02-27 2017-02-27 Appointmen ANN MENON [facility] [id number] Univers 13:00:00 13:00:00 t; MILAGROS MENON ity o f ANDREW, M.D. [facility] 2017-01-30 2017-01-30 AppointANN Cardenas [facility] [id number] Univers 13:15:00 13:15:00 t; SURAJ QUIROZ NP ity of [facility] Phys[facility] ans 2017-01-29 2017-01-29 Outpatient Lynsey, [id number] 11:10:00 23:59:00 Milagros Duarte [id number] 2017-01-04 2017-01-11 Outpatient Kim [facility] [id number] 03:38:00 15:18:00 Mary Claros 2013-02-04 2013-02-10 Outpatient [facility] [id number] Memoria 19:02:00 12:10:[address] [facility] 2013-02-04 2013-02-10 Outpatient MHIE [facility]IE [id number] Memoria 19:02:00 12:10:[address] [facility] 2013-02-04 2013-02-10 Outpatient MHIE MHIE [id number] Memoria 19:02:00 12:10:[address] [facility] 2013-02-04 2013-02-10 Outpatient MHIE MHIE [id number] Memoria 19:02:00 12:10:[address] [facility] 2013-02-04 2013-02-10 Outpatient MHIE MHIE [id number] Memoria 19:02:00 12:10:00 01 l [facility] 2013-01-23 2013-01-27 Outpatient MHIE MHIE [id number] Memoria 19:17:00 18:20:00 00 l [facility] 2013-01-23 2013-01-27 Outpatient MHIE [facility]IE [id number] Memoria 19:17:00 18:20:00 00 l [facility] 2013-01-23 2013-01-27 Outpatient MHIE MHIE [id number] Memoria 19:17:00 18:20:00 00 l [facility] Results Test Test Test Comments Results Result Source Description Time Comments MRI Abdomen 1. Decreasing Dmitriy on with and 31 dominant mass in without 19:42:33 segments 6 and 7 since Contrast 02/2019 but with a recurring disease, particularly at its superior aspect.2. Additional multifocal hypo and hyperintense nodules scattered in the liver, in the background of liver cirrhosis, grossly unchanged with no definite new focal abnormality elsewhere.3. Lack of contrast enhancement and flow void within the TIPS catheter, thrombosis suspected. This can be further evaluated with liver Doppler.4. New nonocclusive portal vein thrombus extending to the superior mesenteric vein. This is a preliminary resident/fellow report and has not been reviewed by an attending radiologist. 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 Y-90 radioembolization and selective bland embolization of the new segment 6 and 7 lesions on 12/04/2018.Indication: mixed HCC/cholangio. Restaging..Comparison: MRI 03/12/2019.Technique: MRI ABDOMEN W WO CONTRAST Findings:Minimal subsegmental atelectasis. Minimal perihepatic ascites. The lung bases are otherwise unremarkable.The liver remains diffusely and markedly lobulated with innumerable nodular densities, compatible with underlying cirrhosis, grossly unchanged. There are several subcentimeter, enhancing nodules scattered in both lobes of liver, largest in segment 4 (image 24 series 9), without evidence of a delayed washout, grossly unchanged.The dominant mass involving segments 6 and 7 has decreased in size but remains highly hypervascular without significant central necrosis. Most of the enhancing component to the 5 minute postcontrast images (image 35, series 9, image 35 series 15) could be cholangiocarcinoma component and post treatment change. Note the enhancing nodular density at the superior aspect (image 23 series 9) associated with a delayed washout, compatible with hepatocellular carcinoma component. This particular density has increased significantly. This component measures approximately 2.5 x 2.1 cm in its greatest cross-sectional dimension (image 20 series 11). This was barely 1 cm on the exam of 02/2019.A TIPS shunt remains in place but without evidence of enhancement or flow void, new from prior study. A filling defect is also noted at the main portal vein near the splenic vein confluence, extending to the superior mesenteric vein beyond the confluence, new since prior exam.The spleen remains within normal limit. Evidence of portal hypertension with paraesophageal varices are again noted.The gallbladder is surgically absent. Kidneys remain within normal limits. Adrenals unremarkable bilaterally.Loops of bowel are within normal limits.No lymphadenopathy in the gabriella hepatis or elsewhere in the abdomen.Incidental small T12 vertebral body hemangioma, stable from 10/31/2016. No focal aggressive osseous lesion is identified. IMPRESSION:1. Decreasing dominant mass in segments 6 and 7 since 02/2019 but with a recurring disease, particularly at its superior aspect.2. Additional multifocal hypo and hyperintense nodules scattered in the liver, in the background of liver cirrhosis, grossly unchanged with no definite new focal abnormality elsewhere.3. Lack of contrast enhancement and flow void within the TIPS catheter, thrombosis suspected. This can be further evaluated with liver Doppler.4. New nonocclusive portal vein thrombus extending to the superior mesenteric vein.This is a preliminary resident/fellow report and has not been reviewed by an attending radiologist.I personally reviewed these image(s) along with the resident's/fellow's interpretations, certify that if a procedure was performed I was physically present, and agree with the final report. RAD, BONE 2019-10- Reason for FINAL REPORT PATIENT DENSITY STUDY 08 Exam:->Compress ID: [id number] EXAM: 10:00:00 ion fracture of Bone mineral density lumbar vertebra study HISTORY: with routine Compression fracture healing, of lumbar vertebra unspecified with routine healing, lumbar unspecified lumbar vertebral vertebral level, level, subsequent encounter subsequent Osteopenia, encounter unspecified location, Osteopenia, COMPARISON: Previous unspecified DEXA 07/13/2016. location, Baseline DEXA 07/13/2016 (lumbar spine and right hip only) DISCUSSION: Evaluation of the left forearm, right hip, and lumbar spine was performed. The study is technically adequate.The patient's fracture risk is compared to an age-matched control.The patient indicates previous hip or vertebral fracture. LEFT FOREARM*Proximal 1/3 bone mineral density: 0.553 gm/cm2, T-score is -2.3, Z-score is 0.4. *No previous for comparison RIGHT HIP*Femoral neck bone mineral density: 0.598 gm/cm2, T-score is -2.3, Z-score is -0.1. *Total bone mineral density: 0.834 gm/cm2, T-score is -0.9, Z-score is 1.0. *BMD change versus previous is -0.168 gm/cm2 LUMBAR SPINE*Total bone mineral density: 1.139 gm/cm2, T-score is 0.8, Z-score is 3.3. *BMD change versus previous is -0.074 gm/cm2 IMPRESSION:1.LEFT FOREARM: Bone mineralization by WHO Classification is osteopenia, the fracture risk is moderate.2.RIGHT HIP: Bone mineralization by WHO Classification is osteopenia, the fracture risk is moderate.3.LUMBAR SPINE: Bone mineralization by WHO Classification is normal, the fracture risk is not increased. Compared to prior (baseline) exam there has been slight loss of bone mineral density of the lumbar spine and right hip. WHO classification is unchanged: normal compared to young adults for the lumbar spine and osteopenic compared to young adults at the right hip. Signed: Bella Moraeport Verified Date/Time: 10/28/2019 10:00:07 Reading Location: [facility] Room [address] [place] [address] DXA Bone 2019-10- Interface, External [facility] Density Study 08 Ris In - 10/28/2019 - Medical 10:00:00 10:02 AM [facility] REPORT EXAM: Bone mineral density study HISTORY: Compression fracture of lumbar vertebra with routine healing, unspecified lumbar vertebral level, subsequent encounter Osteopenia, unspecified location, COMPARISON: Previous DEXA 07/13/2016. Baseline DEXA 07/13/2016 (lumbar spine and right hip only) DISCUSSION: Evaluation of the left forearm, right hip, and lumbar spine was performed. The study is technically adequate.The patient's fracture risk is compared to an age-matched control.The patient indicates previous hip or vertebral fracture. LEFT FOREARM*Proximal 1/3 bone mineral density: 0.553 gm/cm2, T-score is -2.3, Z-score is 0.4. *No previous for comparison RIGHT HIP*Femoral neck bone mineral density: 0.598 gm/cm2, T-score is -2.3, Z-score is -0.1. *Total bone mineral density: 0.834 gm/cm2, T-score is -0.9, Z-score is 1.0. *BMD change versus previous is -0.168 gm/cm2 LUMBAR SPINE*Total bone mineral density: 1.139 gm/cm2, T-score is 0.8, Z-score is 3.3. *BMD change versus previous is -0.074 gm/cm2 IMPRESSION:1.LEFT FOREARM: Bone mineralization by WHO Classification is osteopenia, the fracture risk is moderate.2.RIGHT HIP: Bone mineralization by WHO Classification is osteopenia, the fracture risk is moderate.3.LUMBAR SPINE: Bone mineralization by WHO Classification is normal, the fracture risk is not increased. Compared to prior (baseline) exam there has been slight loss of bone mineral density of the lumbar spine and right hip. WHO classification is unchanged: normal compared to young adults for the lumbar spine and osteopenic compared to young adults at the right hip. Signed: Bella Mora Verified Date/Time: 10/28/2019 10:00:07 Reading Location: [facility] Room [address] [place] [address] [U] XRAY HIP 2017-12- Images acquired, not Un iversity of UNILATERAL MIN 19 [place] on this [place] 2 VWS LEFT 13:01:00 accession number. Physici [place] [id number] CBC W/PLT COUNT & AUTO DIFFERENTIAL 2017-06-26 15:08:00 Test Item Value Reference Range Interpretation Comme nts WHITE BLOOD CELL COUNT (BEAKER) (test code = 775) 4.8 K/ L 3.5- 10.5 RED BLOOD CELL COUNT (BEAKER) (test code = 761) 3.76 M/ L 3.93-5 .22 L HEMOGLOBIN (BEAKER) (test code = 410) 11.8 GM/DL 11.2-15.7 HEMATOCRIT (BEAKER) (test code = 411) 35.9 % 34.1-44.9 MEAN CORPUSCULAR VOLUME (BEAKER) (test code = 753) 95.5 fL 79. 4-94.8 H MEAN CORPUSCULAR HEMOGLOBIN (BEAKER) (test code = 751) 31.4 pg 25.6-32.2 MEAN CORPUSCULAR HEMOGLOBIN CONC (BEAKER) (test code = 752) 32.9 GM/DL 32.2-35.5 RED CELL DISTRIBUTION WIDTH (BEAKER) (test code = 412) 15.6 % 11.7-14.4 H PLATELET COUNT (BEAKER) (test code = 756) 112 K/CU MM 150-450 L MEAN PLATELET VOLUME (BEAKER) (test code = 754) 12.3 fL 9.4-12 .3 NUCLEATED RED BLOOD CELLS (BEAKER) (test code = 413) 0 /100 WBC 0 -0 NEUTROPHILS RELATIVE PERCENT (BEAKER) (test code = 429) 48 % LYMPHOCYTES RELATIVE PERCENT (BEAKER) (test code = 430) 34 % MONOCYTES RELATIVE PERCENT (BEAKER) (test code = 431) 12 % EOSINOPHILS RELATIVE PERCENT (BEAKER) (test code = 432) 4 % BASOPHILS RELATIVE PERCENT (BEAKER) (test code = 437) 2 % NEUTROPHILS ABSOLUTE COUNT (BEAKER) (test code = 670) 2.28 K/ L 1.56-6.13 LYMPHOCYTES ABSOLUTE COUNT (BEAKER) (test code = 414) 1.62 K/ L 1.18-3.74 MONOCYTES ABSOLUTE COUNT (BEAKER) (test code = 415) 0.57 K/ L 0. 24-0.36 H EOSINOPHILS ABSOLUTE COUNT (BEAKER) (test code = 416) 0.21 K/ L 0.04-0.36 BASOPHILS ABSOLUTE COUNT (BEAKER) (test code = 417) 0.07 K/ L 0. 01-0.08 IMMATURE GRANULOCYTES-RELATIVE PERCENT (BEAKER) (test code 0 % 0-1 = 2801) BONE AND/OR JOINT IMAGING, WHOLE [id number] 16:56:00Location->[facility] HospitalFINAL REPORT PROCEDURE: BONE SCAN, WHOLE BODY CPT CODE: 76020 INDICATION: HCC, cirrhosis PROTOCOL: 21.3 mCi of [...] the cervical and lumbar spine favors degenerative global climate change researcher metastatic disease.2.Degenerative changes noted in the axial and appendicular skeleton. 3. There is no metastatic pattern Images for comparison/correlation were CT chest/abdomen 05/2017, MRI abdomen 10/2016, bone scan of 06/2016. Signed: Michael Abernathy Verified Date/Time: 06/05/2017 16:56:04 Reading Location: [address] [place] [address], ABDOMEN, [id number] 15:02:00Liver Prctocol-Triple PhaseLocation->[facility] HospitalFINAL REPORT CT OF THE [...] MDReport Verified Date/Time: 06/05/2017 15:02:52 Reading Location: [facility] C013Y CT Body Reading Room CT, CHEST, WITHOUT [id number] 15:02:00Location->[facility] HospitalFINAL REPORT CT OF THE [...] lesion.3. Cirrhosis and patent TIPS. Signed: Ahmet Ratliffeport Verified Date/Time: 06/05/2017 15:02:52 Reading Location: [facility] C013Y CT Body Reading Room ALPHA FETOPROTEIN (AFP), TUMOR [id number] 14:15:00 Test Item Value Reference Range Interpretation Comments ALPHA-FETOPROTEIN (BEAKER) (test 7.2 ng/mL <10.0 code = 1094) COMPREHENSIVE METABOLIC [id number] 14:02:00 Test Item Value Reference Range Interpretation [...] PATIEN TS. CBC W/PLT COUNT & AUTO SSQBSKUYJKHB9705-65-03 13:25:00 Test Item Value Reference Range Interpretation [...] 0-1 PERCENT (BEAKER) (test code = 2801) FJKH-OSMXLJIVWD1159-95-14 12:17:00 Test Item Value Reference Range Interpretation Comments POC-CREATININE 0.6 mg/dL 0.6-1.[address] [facility] ([facility]) (test [place] code = 1859) [address] POC-EGFR ([facility]) 98 mL/min/1.73M2 (test code = 1860) CHEM [id number] 08:25:0092[facility] GFJFK6159-79-19 08:25:003.3 [facility]ann[facility] GXZBG9129-79-53 08:25:88948Dyqfxypi HermannCHEM PANEL 2017-01-11 08:25:10712Ntngztpp HermannCHEM KNMUA2665-53-78 08:25:008.3[facility]annCHEM WQTSN1297-28-32 08:25:0012.3[facility]annCHEM AXKJX0304-13-99 08:25:0030[facility]annCHEM SIWAO5964-28-90 08:25:16494Isqxuzcx HermannCHEM WMHWN5319-01-15 08:25:007[facility]annCHEM VITCU8728-74-89 08:25:000.56 [facility] JjnekgpORRBXXQSDH9143-57-97 08:25:00 Test Item Value Reference Range Interpretation Comments PT (test code = PT) 16.1 s 12.0-14.7 [facility] MjorrepHUDWRFAGGZ1047-41-11 08:25:001.26[facility] HermannCHEM PANEL 2017-01-11 05:31:003.0[facility]annCHEM XTDQF7062-89-09 05:31:001.4[facility] BnnhenfNNZHZVUBHP2980-40-69 05:31:98927Ptisycyb VeipnxxQNDQBHLAKG7314-41-21 05:31:009.2[facility] LldgmssBWVTFUKXYE2543-54-88 05:31:0014.7[facility] [place] DPFLZCVSMQ3020-70-04 05:31:0033.9[facility] ZlcfphqGQGVQQHKDV3144-72-88 05:31:00 Test Item Value Reference Range Interpretation Comments MCH (test code = MCH) 31.6 pg 27.0-31.0 [facility] WfssxgfIATBTNVYNJ3417-27-39 05:31:0093.3[facility] HermannHEMATOLOGY 2017-01-11 05:31:0010.6[facility] QrhqkvdZPAYTVMANB6341-09-84 05:31:006.9[facility] XhnmmojFAFDQBCGHH9492-50-71 05:31:0031.2[facility] VaenidhFYLVPUUALY4197-45-88 05:31:003.34[facility] DcmyxtdJCDBFMCDOK0266-65-48 05:31:0056.2[facility] MRPTRTURYZ8061-51-18 05:31:0026.0[facility] LgbtxkkFXZBODKFAP6031-36-83 05:31:00 0.2[facility] PghxibwQWCDSUTOJU9417-66-89 05:31:001.8[facility] HermannHEMATOLOGY 2017-01-11 05:31:001.0[facility] VihmnblMTPTUPEXBH2979-05-73 05:31:000.7[facility] VnzwvxlARWCWFGOER7263-88-28 05:31:0014.1[facility] BbxjrpeSTLQTGGTRK3218-49-70 05:31:003.0[facility] AjoakjjYNIJOUGSKY4957-43-05 05:31:003.9[facility] HermannCHEM LTBHB5640-22-91 06:35:002.4[facility] HermannCHEM JOKKA6907-89-87 06:35:001.8 [facility]annCHEM VFNQT8031-08-92 06:35:0063[facility]annCHEM PANEL 2017-01-10 06:35:0027[facility]annCHEM WFEFR0022-87-69 06:35:0099[facility]annCHEM GVJVW3904-33-18 06:35:008.7[facility]annCHEM TNFUH6425-09-83 06:35:0013.3[facility]annCHEM PZLGU9118-07-97 06:35:07953Guumfpac HermannCHEM QIYJT7217-19-68 06:35:76716Afdkkpyw HermannCHEM UICFG1891-69-47 06:35:000.91 [facility]annCHE[facility] NTFKW2676-93-15 06:35:003.3[facility]annCHEM PANEL 2017-01-10 06:35:008[facility] FwfwfolNTDIGYYYKA3892-69-04 06:35:00 Test Item Value Reference Range Interpretation Comments MCH (test code = MCH) 31.9 pg 27.0-31.0 [facility] DwavvjcDUJLXFIVRK9729-41-03 06:35:33939Sbvwzpch HermannHEMATOLOGY 2017-01-10 06:35:009.4[facility] ZhpvcfxVMXLMSFWNY2260-83-68 06:35:0034.5[facility] CjvdquzURZTZPRUNI2678-40-65 06:35:0014.8[facility] KnljanqCSUZSJVECE0008-35-37 06:35:0035.1[facility] PgbqoduIEVESKZPNN2650-33-65 06:35:007.6[facility] MKWNHAOKBI4771-95-17 06:35:003.80[facility] XgxonneBVANVAUZIT1569-64-20 06:35:00 12.1[facility] UsrzjwwLTMXPWCTHM1938-66-40 06:35:0092.5[facility] HermannHEMATOLOGY 2017-01-10 06:35:001.19[facility] YivqfqbPVADCHUUBD4541-46-47 06:35:00 Test Item Value Reference Range Interpretation Comments PT (test code = PT) 15.4 s 12.0-14.7 [facility] SdhhgcvECGJWXOTTG3674-62-15 06:35:0027.4[facility] HermannHEMATOLOGY 2017-01-10 06:35:0013.0[facility] WcvautnKQYSSAVFJN2221-45-21 06:35:003.3[facility] AevuruxDQKQEVMNTA0649-00-60 06:35:0055.8[facility] XpwnzjjYOJYBSZDBM1803-17-26 06:35:000.5[facility] TiarmkxNNJCFJBENX0132-20-32 06:35:002.1[facility] BYHTUVEBSP1969-10-88 06:35:001.0[facility] YfsergkEQLWIAIOIG8692-59-12 06:35:000.3 [facility] KhfuyacCPAGMJTYWB3422-80-06 06:35:004.2[facility] HermannCHEM PANEL 2017-01-09 11:19:002.5[facility] HermannCHEM WFAQN7607-50-16 11:19:001.6[facility] HermannCHEM FWHAU0264-33-43 11:19:0089[facility]annCHEM DSWPV4939-39-50 11:19:008[facility] HermannCHEM NOCLO9105-39-41 11:19:79993Xeehfldo HermannCHEM WAHDW0159-79-91 11:19:000.62[facility] HermannCHEM FUONJ8391-00-74 11:19:0098 [facility]annCHEM GVTCT8172-54-70 11:19:0027[facility] HermannCHEM PANEL 2017-01-09 11:19:008.5[facility] HermannCHEM UKDDR2220-89-17 11:19:003.6[facility]annCHEM MGBKE6271-82-95 11:19:64581Vbgbcymn HermannCHEM LNZXU6296-56-37 11:19:0013.6[facility] XyfwkleEDYOXHWQWH6498-08-67 11:19:000.1[facility] RYRDXNPKZI9952-88-34 11:19:000.3[facility] QzlkfcwGGSHVVGZST6767-99-87 11:19:001.0 [facility] VaeudevCCITURLPFL2911-12-01 11:19:002.0[facility] HermannHEMATOLOGY 2017-01-09 11:19:003.8[facility] SinstdiFZKZGDAMVE7351-12-62 11:19:0013.6[facility] UboctsdVNJJQGZXBZ0406-22-15 11:19:0027.2[facility] LymfvuiIKHBJDQABF2622-50-43 11:19:004.0[facility] SosrdqfMWQFNFZVPA3471-40-98 11:19:0054.7[facility] FRTKYDJSDJ9083-33-38 11:19:000.7[facility] KalgocbZUNEDUSMCH3546-37-02 11:19:00 Test Item Value Reference Range Interpretation Comments PT (test code = PT) 15.3 s 12.0-14.7 [facility] FdhdwssMKICLXLTAN1109-25-03 11:19:001.18[facility] HermannHEMATOLOGY 2017-01-09 11:19:80443Bkxjaxgx YjuyrfwZBNEOFTZAC7994-42-65 11:19:0014.7[facility] VpsbnkpHWSKVGSGUS7676-00-33 11:19:009.6[facility] WubzytkBXWMVALCGY3345-91-24 11:19:0034.6[facility] QtqvsnvOWCCGVUNDH9185-76-18 11:19:0092.1[facility] JEWMMECHVP9305-81-79 11:19:0033.2[facility] ZraroeuTGHYZFSXFV0396-81-21 11:19:00 Test Item Value Reference Range Interpretation Comments MCH (test code = MCH) 31.9 pg 27.0-31.0 [facility] IhkuknfFDOUKAHVXP6911-78-36 11:19:003.60[facility] HermannHEMATOLOGY 2017-01-09 11:19:0011.5[facility] AaixewqOIYNDAKAAG7609-82-11 11:19:007.2[facility] HermannCHEM FGVMY6144-40-50 01:08:006.2[facility] HermannCHEM SIFAA2216-96-60 01:08:002.7[facility] HermannCHEM UZYXH1297-08-22 01:08:0024[facility] HermannCHEM HQPLZ2560-31-80 01:08:0040[facility] HermannCHEM SRXXF4324-24-11 01:08:36814 [facility]annCHEM NNHKG5162-49-48 01:08:001.8[facility] HermannCHEM PANEL 2017-01-09 01:08:000.4[facility] HermannCHEM CYEKG7439-10-08 01:08:003.5[facility] HermannCHEM LSPGU8267-33-13 01:08:000.8[facility] HermannCHEM OLAWA8537-30-55 01:08:001.4[facility] FowkxvuUUJBFTTTZL9415-70-42 01:08:000.1[facility] SSFBXNEPSW1641-93-59 01:08:00 Test Item Value Reference Range Interpretation Comments Pos CO Value (test code = Pos CO 0.400 1 Value) [facility] PdjjmemDPDTUOAJTM1418-20-88 01:08:00Negative 1(01/08/17 8:08 PM)[facility] ZjehoslHYQUTHYZXB6110-98-16 01:08:00 Test Item Value Reference Range Interpretation Comments Pat Od Value (test code = Pat Od 0.082 1 Value) [facility]annCHEM REVLO4512-97-28 17:33:0028.6[facility] HermannPARATHYROID SSBKJUT9120-47-49 17:33:0033.4[facility] HermannCHEM VDSQQ1532-87-82 11:20:0017 [facility]annCHEM SGDMR6229-06-43 11:20:000.8[facility] HermannCHEM PANEL 2017-01-05 11:20:003.5[facility] HermannCHEM KGLZL1714-47-50 11:20:0032[facility] HermannCHEM HFDOU2681-49-76 11:20:15621Fktisiuf HermannCHEM BNHUZ4701-27-08 11:20:0058[facility] HermannCHEM RVUOW5856-68-90 11:20:006.3[facility] HermannCHEM ARUFX3052-25-41 11:20:002.8[facility] HermannCHEM PCRHA9249-32-12 11:20:001.6 [facility] DnznhczFRBHUBGULE4174-22-68 11:20:000.1[facility] HermannSPECIAL PEHIQGQIV4538-80-87 11:20:008.7[facility] NfhhiejJFHZLEHOSG7733-47-58 16:27:00 Test Item Value Reference Range Interpretation Comments PTT (test code = PTT) 30.9 s 22.9-35.8 [facility]CHE[facility] NQEQE5417-98-63 13:30:000.4[facility] HermannCHEM PANEL 2017-01-04 13:30:001.6[facility] HermannCHEM FBUKL1767-21-55 13:30:000.8[facility] HermannCHEM UCSXA5708-10-13 13:30:004.0[facility] HermannCHEM PVYHO3279-62-41 13:30:001.2[facility] HermannCHEM VZCVC8692-04-44 13:30:007.4[facility] HermannCHEM LKYUD0757-29-46 13:30:74985Koywmdxb HermannCHEM AIACA7987-08-21 13:30:003.4 [facility] HermannCHEM TYPHT0185-44-21 13:30:0039[facility] HermannCHEM PANEL 2017-01-04 13:30:0058[facility] HermannBLOOD BANK DBMXLYJ2752-83-24 10:12:00 Negative (01/04/17 5:12 AM)[facility]EyfzxwyNLPPDNTFWN7810-17-78 09:39:40 Test Item Value Reference Range Interpretation Comments K-time Rapid (test code = K-time 1.0 min 0.6-2.3 Rapid) [facility] CenterKpgarlmRBLVYQNQRO7899-14-59 09:39:40 Test Item Value Reference Range Interpretation Comments ACT (TEG) Rapid (test code = ACT (TEG) 97 s 86-118 Rapid) [facility] CenterHscemvgNSBTBKWYRE8604-53-23 09:39:40 Test Item Value Reference Range Interpretation Comments R-time Rapid (test code = R-time 0.5 min 0.4-0.7 Rapid) [facility] CenterCgtrqsnSFYGKIQIDL5493-55-87 09:39:40 Test Item Value Reference Range Interpretation Comments Split Point Rapid (test code = Split 0.3 min Point Rapid) [facility] CenterQtmbrvpOBGESHIFYW7181-57-23 09:39:40 Test Item Value Reference Range Interpretation Comments Angle Rapid (test code = Angle 78 degrees 64-80 Rapid) [facility] CenterRihcgqlIYEHBARHCX7599-12-76 09:39:40 Test Item Value Reference Range Interpretation Comments Max Amplitude Rapid (test code = Max 62 mm 52-71 Amplitude Rapid) [facility]NwlupumBWXUDELIAL1817-56-62 09:39:400.0[facility]HE[facility] 2017-01-04 09:39:408.2[facility] HermannALPHA FETOPROTEIN (AFP), TUMOR MARKER 2016-10-31 15:15:00 Test Item Value Reference Range Interpretation Comments ALPHA-FETOPROTEIN (BEAKER) (test 8.8 ng/mL <10.0 code = 1094) Effective 03/09/2014: Reference Range ChangeNew: <10.0 Previous: 0.0-8.0 COMPREHENSIVE METABOLIC [id number] 14:52:00 Test Item Value Reference Range Interpretation [...] NOT APPLICABLE FOR DIALYSIS PATIEN TS. PROTHROMBIN TIME/[id number] 14:40:00 Test Item Value Reference Range Interpretation [...] K/ L 0.00-0.20 (test code = 417) 0.92ESWU-SQTFGVJIAR8946-50-12 14:11:00 Test Item Value Reference Range Interpretation Comments POC-CREATININE 0.6 mg/dL 0.6-1.[address] [facility] (BEAKER) (test [place] code = 1859) [address] POC-EGFR (BEAKER) 98 mL/min/1.73M2 (test code = 1860) (MANUAL DIFFERENTIAL)2016-08-14 08:15:00 Test Item Value Reference [...] 762) ATYPICAL LYMPHS(BEAKER) (test code Present = 1678) COMPREHENSIVE METABOLIC [id number] 07:38:00 Test Item Value Reference Range Interpretation [...] TS. CBC WITH PLATELET COUNT + MANUAL [id number] 07:03:00 Test Item Value Reference Range Interpretation [...] WBC 0-0 (BEAKER) (test code = 413) 0.00PT/LFKL5162-14-26 07:02:00 Test Item Value Reference Range Interpretation [...] 2.5-3.5 for patients with mechanical heart valves.URINE KYCSDIB3006-70-98 09:57:00 Test Item Value Reference Range Interpretation Comments CULTURE (BEAKER) (test code = See comment 1095) <10,000 col/mL enteric organisms of >2 types. No further workup performed. Multiple organisms suggestive of colonization or contamination. Repeat collection recommended.>100,000 col/mL skin floraCYTOMEGALOVIRUS ANTIBODY, [id number] 15:23:00 Test Item Value Reference Range Interpretation Comments CYTOMEGALOVIRUS IGG ANTIBODY Positive (BEAKER) (test code = 790) CYTOMEGALOVIRUS ANTIBODY, [id number] 15:23:00 Test Item Value Reference Range Interpretation Comments CYTOMEGALOVIRUS IGM ANTIBODY Negative (BEAKER) (test code = 816) URINALYSIS W/ REFLEX URINE [id number] 17:13:00 Test Item Value Reference Range Interpretation [...] code = 2795) ALPHA FETOPROTEIN (AFP), TUMOR [id number] 14:34:00 Test Item Value Reference Range Interpretation Comments ALPHA-FETOPROTEIN (BEAKER) (test 7.2 ng/mL <10.0 code = 1094) Effective 03/09/2014: Reference Range ChangeNew: <10.0 Previous: 0.0-8.0CBC W/PLT COUNT & AUTO DBHVSNQQVDLT9296-76-30 13:34:00 Test Item Value Reference Range Interpretation [...] 0.00-0.20 (test code = 417) 0.00HEPATIC FUNCTION [id number] 13:21:00 Test Item Value Reference Range Interpretation [...] = 39 U/L 6-55 347) BASIC METABOLIC [id number] 13:21:00 Test Item Value Reference Range Interpretation [...] NOT APPLICABLE FOR DIALYSIS PATIEN TS. PROTHROMBIN TIME/[id number] 13:17:00 Test Item Value Reference Range Interpretation [...] Range ChangeNew: <10.0 Previous: 0.0-8.0 COMPREHENSIVE METABOLIC [id number] 08:04:00 Test Item Value Reference Range Interpretation [...] PATIEN TS. CBC W/PLT COUNT & AUTO [id number] 08:02:00 Test Item Value Reference Range Interpretation [...] L 0.00-0.20 (test code = 417) 0.00PROTHROMBIN TIME/[id number] 07:57:00 Test Item Value Reference Range Interpretation [...] Range ChangeNew: <10.0 Previous: 0.0-8.0 HEPATIC FUNCTION [id number] 17:38:00 Test Item Value Reference Range Interpretation [...] = 29 U/L 6-55 347) BASIC METABOLIC [id number] 17:38:00 Test Item Value Reference Range Interpretation [...] APPLICABLE FOR DIALYSIS PATIEN TS. COMPREHENSIVE METABOLIC [id number] 17:38:00 Test Item Value Reference Range Interpretation [...] PATIEN TS. CBC W/PLT COUNT & AUTO [id number] 17:14:00 Test Item Value Reference Range Interpretation [...] L 0.00-0.20 (test code = 417) 0.00PROTHROMBIN [id number] 17:14:00 Test Item Value Reference Range Interpretation Comments PROTIME (BEAKER) (test code = 15.4 seconds 11.7-14.7 H 759) INR (BEAKER) (test code = 370) 1.2 <=5.9 RECOMMENDED COUMADIN/WARFARIN INR THERAPY RANGESSTANDARD DOSE: 2.0 - 3.0 Includes: PROPHYLAXIS forvenous thrombosis, systemic embolization; TREATMENT for venous thrombosis and/or pulmonary embolus.HIGH RISK: Target INR is 2.5-3.5 for patients with mechanical heart valves.POCT-GLUCOSE [id number] 07:44:00 Test Item Value Reference Range Interpretation Comments POC-GLUCOSE METER 373 mg/dL 70-[address] [facility] ([facility]) (test code = JERICA Cook PUJA MUHAMMAD 1538) [address] GUNJAN TITER AND LPJOBAB1539-80-15 13:43:00 Test Item Value Reference Range Interpretation Comments GUNJAN TITER (BEAKER) (test code = :640 1541) GUNJAN PATTERN ([facility]) (test code = Speckled 178) ANTI-NUCLEAR ANTIBODY (GUNJAN)2016-06-06 13:37:00 Test Item Value Reference Range Interpretation Comments ANTI-NUCLEAR ANTIBODY (GUNJAN) (BEAKER) Positive Negative A (test code = 418) BEDSIDE GLUCOSE DSRDAIP1728-02-92 10:39:00603Yhodfsjb UsaclzoOGIGQKQMI5606-31-06 08:37:0012.3[facility] EwqdujqCRQFHBHVE7882-04-21 08:37:0093[facility] ZPUUJXBVU2673-43-94 08:37:000.6[facility] MdvlbayBCNLMUTQT1511-49-32 08:37:002 [facility] AogfsobBRGUPZRWF7368-25-97 08:37:64495Qmkzrton HermannCHEMISTRY 2013-02-10 08:37:008.1[facility] OazcanwIVDWAESSI0333-59-64 08:37:0029[facility] WxuprtdNWYRSVSSK3689-31-58 08:37:66547[place] YzzjmijFXOKWQNCP6141-61-22 08:37:84243Ewvvcinm EwkxgyzSPXKCYGVI3108-04-75 08:37:003.3[facility] CKRDYUUGHU9530-33-46 08:37:007.3[facility] YfbwdetRWBQJMLGIC1571-16-31 08:37:00 3.91[facility] ZnfwxgxFSKCVXIDUW9123-54-94 08:37:0010.4[facility] HermannHEMATOLOGY 2013-02-10 08:37:0032.9[facility] NenouelYBRUDWMHML2044-00-74 08:37:008.5[facility] GgxqklfXZJMOLFNYT3489-64-58 08:37:0031.6[facility] JemjdroBQWZABEKLB0389-87-54 08:37:0019.2[facility] GlyfnheZYMIBQQWAF8046-35-69 08:37:0084.1[facility] QQUETQFFRV6109-96-70 08:37:00 Test Item Value Reference Range Interpretation Comments MCH (test code = MCH) 26.6 pg 27.0-31.0 L [facility] IgyipciDJFNAHPBGU5726-56-45 08:37:92933Mdsabbtp HermannHEMATOLOGY 2013-02-10 08:37:000.0[facility] RijozdzJSZBFMUKGV3204-47-30 08:37:000.2[facility] DiskblnXZKFNJXMFH6911-16-19 08:37:000.3[facility] OgkbzrdSXTPVAPKJC6761-06-05 08:37:003.1[facility] PwnayenPISOVBVAIN0124-35-97 08:37:0010.0[facility] JCHQXWQJEE1967-35-35 08:37:0041.5[facility] QprfwawHYBEAAZLWN5255-07-33 08:37:00 3.3[facility] LdwmmbzXEXJOTYWHP4240-16-68 08:37:000.7[facility] HermannHEMATOLOGY 2013-02-10 08:37:003.0[facility] BumqqtzJVLHLDYFEM7025-43-99 08:37:0045.1[facility] HermannBEDSIDE GLUCOSE VJUGTIL0568-78-84 01:53:07625Kgjeqvpf HermannBEDSIDE GLUCOSE GDTXOCX9995-55-12 21:34:42720Jyzcbnbc TpdofnxSSQRJRCTZL3568-05-26 15:01:0011.0[facility] UiyzvtoOHOHSKAQID5876-34-04 15:01:0034.6[facility] ERZGGSBSNO0680-54-08 10:23:0010.2[facility] OqupavqRUYJFUKNVH8239-32-87 10:23:00 32.1[facility] VrgmpdgKTKNEZYZNP6955-51-21 14:47:37649Oasnyqfa HermannHEMATOLOGY 2013-02-08 14:47:0018.8[facility] ZsvjlbjCVWAAHUZBA9787-93-93 14:47:008.8[facility] BpwshuuXQFMGUPOXD4784-11-90 14:47:0083.0[facility] HhkrzaeBFQEDGXHRL9240-37-26 14:47:00 Test Item Value Reference Range Interpretation Comments MCH (test code = MCH) 26.4 pg 27.0-31.0 L [facility] PpbiqwhIVDLVTNTXC7215-14-52 14:47:0031.8[facility] HermannHEMATOLOGY 2013-02-08 14:47:003.97[facility] UkzngusNSAOPAOOVC8599-38-11 14:47:006.2[facility] SpsidesKPWFKAEKJT6782-00-88 16:43:51841Emgaflqw PhraqxlOIXDAAFFZF4649-66-36 16:43:008.7[facility] HvunepsRRQCMHGKYD2925-48-88 16:43:004.20[facility] FCYSHMQTGH6397-86-54 16:43:006.5[facility] DgvunnwLKPHQFFROJ1882-18-69 16:43:00 84.7[facility] QllwjtfYARGBKPGWX0268-55-97 16:43:00 Test Item Value Reference Range Interpretation Comments MCH (test code = MCH) 26.7 pg 27.0-31.0 L [facility] EnlzipnZONIXESDPK7852-19-27 16:43:0019.1[facility] HermannHEMATOLOGY 2013-02-07 16:43:0031.5[facility] HermannOOD BANK KXBVZOV4377-99-53 13:40:00 Product available 4(02/05/2013 08:40:00)[facility] HermannBLOOD BANK RESULTS 2013-02-05 00:40:00Negative (02/04/2013 19:40:00)[facility] HermannCHEMISTRY 2013-02-05 00:40:002.7[facility] KnascuhDVLMRHQQP7913-68-45 00:40:001.5[facility] BoasvvcLVXMGADPM2225-36-66 00:40:0093[facility] HfuxpkvXSGZIKORA1565-67-91 00:40:000.6[facility] MkkauuxZIMQAJOOL4139-11-02 00:40:0049[facility] WARFCXHXW3510-38-77 00:40:77340Ajsmsvfu AoooroyFAWRSCITW1434-49-54 00:40:003.1 [facility] FhpwsczMFFWMJZQM6868-02-43 00:40:0030[facility] HermannCHEMISTRY 2013-02-05 00:40:008.0[facility] LqgjrzwPVKNVAZER1853-00-70 00:40:007.2[facility] VksnkooXKKUOEHAS8381-19-23 00:40:0027[facility] OfaqmmxALSBMYSND1270-25-17 00:40:57166Rpitdcqj GharjlcGFDNJBGTQ5138-08-79 00:40:005[facility] EGENAATSX7330-27-78 00:40:000.6[facility] XylgnyfSFNLSJNDG0065-58-68 00:40:003.6 [facility] FcvnvgoMQDSPBEDX7135-15-21 00:40:83289Hxgidxoo HermannCHEMISTRY 2013-02-05 00:40:07215Tugsgpnw DqsxdqzYBPIYHKNL8026-16-43 00:40:0013.emorial YiixfvnHXVRQOAXE1637-98-31 00:40:008[facility] PwbyoogJNXHXQNLX0204-81-64 00:40:00 0.8[facility] JlricrmINJAYQNBG8802-96-17 00:40:004.1[facility] HermannHEMATOLOGY 2013-02-05 00:40:0038.5[facility] ZjxnsepPEFXQGTBWP8389-96-82 00:40:000.6[facility] PbxuvgpOATZNGUELH7075-43-93 00:40:0013.5[facility] MpsikooLIWAVPAXAO2079-38-23 00:40:002.7[facility] MnmpvofUCHEPSALZB7593-26-97 00:40:0044.7[facility] MZBURBUMXL7730-57-92 00:40:000.2[facility] IknentjBUOHSPSRWK8088-39-70 00:40:003.1 [facility] YvcjctiUUQVFORVPH1983-97-48 00:40:002.7[facility] HermannHEMATOLOGY 2013-02-05 00:40:000.0[facility] IjinyohWLPGBBPAOG5137-52-63 00:40:000.9[facility] KeupyjsCFRVDKXKBW8280-54-07 00:40:00 Test Item Value Reference Range Interpretation Comments aPTT (test code = aPTT) 32.2 s 22.9-35.8 N [facility] WlcdmrxIXEFNQVDHC6570-28-61 00:40:00 Test Item Value Reference Range Interpretation Comments PROTIME (test code = PROTIME) 15.0 s 12.0-14.7 H [facility] ZcgvtwlFNQVHCYKGD2371-49-31 00:40:001.19[facility] HermannURINALYSIS 2013-02-05 00:30:00Negative *NA*(02/04/2013 19:30:00)[facility] HermannURINALYSIS 2013-02-05 00:30:00Moderate *ABN*(02/04/2013 19:30:00)[facility] HermannURINALYSIS 2013-02-05 00:30:00Negative (02/04/2013 19:30:00)[facility] HermannURINALYSIS 2013-02-05 00:30:00Negative (02/04/2013 19:30:00)[facility] HermannURINALYSIS 2013-02-05 00:30:00Slight *ABN*(02/04/2013 19:30:00)[facility] HermannURINALYSIS 2013-02-05 00:30:006.0[facility] SqrhjzvHDWTMZOLBI3551-72-77 00:30:001.003[facility] HwllvkbKQSJCUXMTH0264-83-61 00:30:001[facility] ZwehxqxLUDXFDAXHZ1502-71-35 00:30:002[facility] HermannBEDSIDE GLUCOSE FEGQUNL7747-64-07 21:18:91228Guqavyzo HermannBEDSIDE GLUCOSE XRQSTNP2788-97-75 17:01:27789Vddaydvl HermannHEMATOLOGY 2013-01-27 14:14:0020.0[facility] QvholabUIRFJBMJES6142-45-79 14:14:008.5[facility] VseeimzYVLOPJQJQU2668-84-89 14:14:86818Tznogwfg KvsdvgrSJDXPOFSXI7880-71-23 14:14:005.7[facility] MvcybnzXWOYOQXEFX9775-97-85 14:14:0030.5[facility] FYKIFVYNMF6225-71-08 14:14:009.6[facility] QrcmnsbABEJHOBKRC0357-67-93 14:14:00 3.60[facility] AqfwdgoSLIKNLCBOJ9247-90-27 14:14:00 Test Item Value Reference Range Interpretation Comments MCH (test code = MCH) 26.6 pg 27.0-31.0 L [facility] NajgsvnMCASDSLKSE0014-49-48 14:14:0084.5[facility] HermannHEMATOLOGY 2013-01-27 14:14:0031.5[facility] EwbodatHNVQQHWIGK7780-99-38 14:14:0053.6[facility] QupkdwdDDHDIHTWEJ4794-75-92 14:14:0032.8[facility] GcyreecNNSRDAKZAB5347-76-58 14:14:0011.3[facility] JzjxmopBIENZQUYRQ1917-20-22 14:14:001.9[facility] TVKWMNEZKU0388-81-25 14:14:000.4[facility] SxrulnoXATMGDUCWH6564-34-10 14:14:003.0 [facility] TptzaudWOGUHYVJMF4724-52-97 14:14:001.9[facility] HermannHEMATOLOGY 2013-01-27 14:14:000.6[facility] PdakhmiCRKISHNKIT3425-38-47 14:14:000.1[facility] IhxzsakVVDCNBGQUK8583-65-58 14:14:000.0[facility] HermannBEDSIDE GLUCOSE TESTING 2013-01-27 12:55:86535Mxciujoh EwcsthkRKYJGLCGBN9116-17-01 10:40:000.7[facility] OycibjfFNHCVGQBEJ9614-41-54 10:40:001.8[facility] SqtqhqeGWFLGIKMAA8700-20-18 10:40:002.3[facility] EfbuwypUNSKFAKLME8585-73-97 10:40:000.2[facility] WQSDAHYTZJ5375-18-46 10:40:002.2[facility] VihijbgCYHEKNVJAU5560-59-65 10:40:00 46.1[facility] QjctptoOYQDMUGQIW3597-37-17 10:40:0037.9[facility] HermannHEMATOLOGY 2013-01-26 10:40:0013.5[facility] AtsjsgjZODINBBDRK9395-73-32 10:40:000.0[facility] LshrnuzOMYIRZXFRV6442-06-48 10:40:000.1[facility] RgmcdouYCLDUJZNDR0401-88-50 10:40:00 Test Item Value Reference Range Interpretation Comments PROTIME (test code = PROTIME) 16.5 s 12.0-14.7 H [facility] DkhtapzYTLVXSHMCZ7629-24-99 10:40:001.35[facility] HermannHEMATOLOGY 2013-01-26 10:40:0028.5[facility] HnjrmggCCKPNRPPVY7104-19-86 10:40:0085.8[facility] VrtxlmmHSVUTPYYHH1650-51-20 10:40:00 Test Item Value Reference Range Interpretation Comments MCH (test code = MCH) 27.2 pg 27.0-31.0 N [facility] VkmbwgmSMTYYEXMII6997-02-48 10:40:0031.7[facility] HermannHEMATOLOGY 2013-01-26 10:40:009.0[facility] AycctevLJBFGXGGOC9872-30-15 10:40:30034Rqkpwayf NnihvqrIGZBSDQMDQ5525-83-98 10:40:008.9[facility] InerwljRVEJFQICSZ3999-45-91 10:40:0020.0[facility] ZlshhtqJJSSDEVTZP8895-57-43 10:40:004.9[facility] JNUKWVIZKT1581-46-67 10:40:003.32[facility] HermannTUMOR QGKEYKO9258-13-92 10:40:003.0[facility] LxnbjwsRJGYYSFJTT1163-22-41 04:15:005.9[facility] XIQGXYUVYG6767-83-58 04:15:0085.3[facility] EofdihzIYYLCPUCAF4426-34-27 04:15:00 153[facility] BehqjyoQPTKFIAVBE4487-33-89 04:15:0019.6[facility] HermannHEMATOLOGY 2013-01-26 04:15:009.5[facility] PoyttoeBOPTIEXZRH1562-38-09 04:15:003.55[facility] FyjpovnWAGGUXNUDX3089-77-98 04:15:0030.3[facility] BwwrnchDPPFQYIJAU4466-53-05 04:15:008.9[facility] PnnnyueODATKPVTTW4672-49-53 04:15:0031.4[facility] CKONMQRNJR5557-00-44 04:15:00 Test Item Value Reference Range Interpretation Comments MCH (test code = MCH) 26.8 pg 27.0-31.0 L [facility] RoajkicWKUHSIFFBC0201-71-17 04:15:000.0[facility] HermannHEMATOLOGY 2013-01-26 04:15:000.7[facility] XcnvdjpCMZPHZHMHU6133-81-15 04:15:000.1[facility] ZsohsazZQSMXQLCXS7248-34-26 04:15:0011.7[facility] WrsahcuEGVHLTQPFA7225-71-69 04:15:002.4[facility] UeqqqmmZWEOQJYWSH6893-81-73 04:15:000.6[facility] WEYNSXHCAC2514-62-91 04:15:002.6[facility] SdlhtjuVZHJWDTMRB0864-05-91 04:15:002.4 [facility] QjxvlkiSSEYBRJWBO8047-33-32 04:15:0041.2[facility] HermannHEMATOLOGY 2013-01-26 04:15:0044.1[facility] HxhzfhgQBGASTUCJK9056-73-14 14:31:00Negative *NA*(01/25/2013 09:31:00)[facility] LqtodpzLJCJIHBPWT6024-79-92 14:31:00Negative *NA*(01/25/2013 09:31:00)[facility] GrkpvbvKVQZEYFTVM2201-13-44 14:31:00Negative *NA*(01/25/2013 09:31:00)[facility] XerxosqXBSCWXFVWL4296-23-82 14:31:00Positive *NA*(01/25/2013 09:31:00)[facility] GwfangkVTCRNOEVMJ9518-96-17 14:31:0079.7 [facility] HermannBLOOD BANK DAOCOKN5044-80-52 13:32:00Product available 4(01/25/2013 08:32:00)[facility] TvvrrawODFJFVQSZ0206-04-30 08:45:001.7[facility] CmtpkuwKZLPMELCE4047-61-11 08:45:001.9[facility] SiwplcnUCHPNVOUU2439-32-78 08:45:000.04[facility] BdhpfvcUGCUDXUSK8377-07-20 08:45:74835Rfpsirhj [facility] FIHCAKEEU2361-28-64 08:45:000.6[facility] ExdkkfvNFYSLVZOZ7800-59-73 08:45:000.5 [facility] CwzauprXWMTPPRAS4908-81-88 04:09:000.04[facility] HermannCHEMISTRY 2013-01-25 04:09:53083Yumhpuwi IxuviokZQLSKJWNJ3255-96-17 04:09:000.7[facility] MjcvpnoVYMDHBVPF6108-96-88 04:09:000.7[facility] RjwrajqGSBYUDHXF4218-27-73 13:07:41672Plrjbgcu VwijmfhRIJTGWQFI7233-27-82 13:07:003.[facility] SJGKVWGCN2156-66-42 13:07:44116Cuziiiur BmfohdnNGOAGVOTJ6904-25-63 13:07:0093 [facility] EeohiynOLCTRVCSG4688-12-00 13:07:007[facility] SqnzjzhNWNAMASNK7416-25-92 13:07:000.6[facility] BvajgcbTKYVMETEM7255-31-14 13:07:0027[facility] DCKFULIVA7899-56-65 13:07:007.6[facility] VpkrdisTFGJKZDCW8119-15-29 13:07:70152 [facility] HvibemdMVEMGNSRI0342-72-78 13:07:0012.6[facility] HermannCHEMISTRY 2013-01-24 13:07:002.6[facility] IdnhggdDXJJPNQDJ7399-73-40 13:07:001.6[facility] HermannBLOOD BANK XWBNKVL9530-63-65 04:33:26Product available 5(01/23/2013 23:33:26)[facility] XwgaclvAXHVXOEXD7155-96-62 03:15:0017[facility] HermannCHEMISTRY 2013-01-24 03:15:0013.8[facility] VqjbxflNDTHEUUIH7199-50-61 03:15:003.2[facility] UnhsfobPJRZDECLQ1594-04-55 03:15:000.9[facility] JgavvxmNLVJMBIQO0333-04-42 03:15:003.8[facility] CvonjrcTBPVZOOJX2321-63-98 03:15:84448Hxyncoyr [place] QPNYAPFHL1332-71-12 03:15:71388Jgpqfhdt OaxqayvSUCGGBERB0559-45-70 03:15:0088 [facility] EzchvijEDISMRZVD6890-95-23 03:15:0046[facility] HermannCHEMISTRY 2013-01-24 03:15:44802Noltztzn RcymzhuTATMNLAOH6127-69-33 03:15:000.6[facility] UqbgvjtHWOAWAAVR7184-64-76 03:15:002.9[facility] IfwnsjcBTSZGXTDG2689-86-75 03:15:0032[facility] IxwdvymFGQUIEUXY1246-83-10 03:15:007.8[facility] LZQQYKVFI4640-69-47 03:15:006.1[facility] HrtvbshPDBTRTIHT4807-37-08 03:15:0026 [facility] MlwkffvXCUKEOUJV9883-13-31 03:15:000.7[facility] HermannCHEMISTRY 2013-01-24 03:15:92379Miwsojsk ByfbltyHPPRKKBSB2924-86-90 03:15:0012[facility]QdiewwqIMJJQLBVDN5104-19-71 03:15:00 Test Item Value Reference Range Interpretation Comments PROTIME (test code = PROTIME) 16.7 s 12.0-14.7 [facility]TPIBQMXL6105[facility] 03[facility] 03:15:00 Test Item Value Reference Range Interpretation Comments aPTT (test code = aPTT) 29.7 s 22.9-35.8 [facility] XOTMPRK4067-65-69 03:13:00Negative (01/23/2013 22:13:00)[facility] LOOXO1440-93-13 02:10:00Positive *ABN*(01/23/2013 21:10:00)[facility]
--- OUTSIDE RECORDS SUMMARY | 2020-01-19 16:28 | XMS REPORT | Summary of Care ---
:1940 Author Organization [facility] [place] [address] Care Team Providers Name Role Phone Krista Ignacio MD Primary Care Provider Reason for Referral Radiology Services (Routine) Status Reason Specialty Diagnoses / Procedures Referred By Krista ontact Referred To Contact Pending Radiology Diagnoses Compression fracture of lumbar vertebra with routine healing, unspecified lumbar vertebral level, subsequent encounter Osteopenia, unspecified location Lizett Fairbanks, Radiology, Aristides Procedures DEXA BONE DENSITY SPINE AND HIP [address] [place] [address], [facility] 1st Floor [address] [place] [address] [place], [place] [address] Phone: (Routine) Status Reason Specialty Diagnoses / Referred By Referred To Procedures Contact Contact Pending Consult, Physical Diagnoses Primary localized osteoarthrosis of lower leg, unspecified laterality Spondylolisthesis of lumbar region Compression fracture of lumbar vertebra with routine healing, unspecified lumbar vertebral level, subsequent encounter Lizett Fairbanks Test, and Therapy MD Harleen Treat [address] [facility] [address] [place] [address] Reason for Visit Reason Comments Disease Management Encounter Details Date Type Department Care Team Description 10/27/2019 Office Visit [facility] Lizett Fairbanks, Dise ase Management Medicine Rheumatolog y [address] [place] [address] 8th Floor, [address] [place] [address] [place] [address] [phone] Allergies Active Allergy Reactions Severity Noted Date Comments No Known Allergies 01/27/2009 documented as of this encounter (statuses as of 10/28/2019) Medications Medication Sig Dispensed Refills Start End Date Status Date FAMOTIDINE 40 mg two 0 Active times daily. Levothyroxine Sodium Take by 0 Active 50 MCG CAPS mouth. Multiple Take by 0 Active Vitamins-Minerals mouth. (CENTRUM SILVER OR) furosemide (LASIX) 20 Take 20 mg 0 Active MG tablet by mouth daily. propranolol (INDERAL) Take 40 mg 0 Active 40 MG tablet by mouth 3 times daily. spironolactone Take 50 mg 0 Acti ve (ALDACTONE) 50 MG by mouth tablet daily. ezetimibe (ZETIA) 10 Take 10 mg 0 Active MG tablet by mouth daily. Glucose Blood Strips Use one 0 Active strip as directed pantoprazole Take 40 mg 0 Active (PROTONIX) 40 MG by mouth tablet daily. Insulin Aspart Prot & Inject into 0 Active Aspart (NOVOLOG MIX the skin. 70/30 FLEXPEN) (70-30) 100 UNIT/ML SUPN LYRICA 100 MG capsule TAKE 1 90 Cap 0 Active CAPSULE BY 0 MOUTH AT BEDTIME ALBUTEROL IN Inhale by 0 Active mouth. amoxicillin (AMOXIL) Take 500 mg 0 Active 500 mg capsule by mouth two times daily. Fluticasone Inhale by 0 Active Furoate-Vilanterol nose. (BREO ELLIPTA) 100-25 MCG/INH AEPB fluticasone (FLONASE) 1 [place] by 0 Active 50 MCG/ACT nasal spray Each Nostril route daily. pregabalin (LYRICA) Take 1 Cap 90 Cap 1 Active 150 MG by mouth 0 capsuleIndications: daily. Take Primary localized at night osteoarthrosis of lower leg, unspecified laterality tramadol (ULTRAM) 50 Take 1 Tab 60 Tab 5 Active MG tabletIndications: by mouth 2 0 Primary localized times daily osteoarthrosis of as needed lower leg, unspecified for Pain. laterality, Take upto Spondylolisthesis of 2/day as lumbar region needed LOVAZA 1 GM OR CAPS one BID 0 10/27/19 Discontinued 8 20 cyclobenzaprine Take 10 mg 0 10/27/19 Dis continued (FLEXERIL) 10 MG by mouth as 20 tablet needed. Reported on 07/02/2016 Probiotic Product Take 4 mg by 0 10/27/19 Discontinued (ALIGN) 4 MG CAPS mouth. 20 Wheat Dextrin Take by 0 10/27/19 Discon tinued (BENEFIBER) TABS mouth. 20 Reported on 07/02/2016 ferrous sulfate Take 325 mg 0 10/27/19 Di scontinued (FEOSOL) 325 (65 FE) by mouth 20 MG tablet daily. Lactulose 20 GM/30ML Take by 0 10/27/19 Discontinued SOLN mouth. 20 lidocaine (LIDODERM) 5 Place 1 0 0 Discontinued % patch Patch onto 20 the skin every 24 hours. Reported on 07/02/2016 [id number] Ethyl Take by 0 10/27/19 D iscontinued Esters (LOVAZA) 1 G mouth. 20 CAPS vitamin E 400 UNIT Take 400 0 10/27/19 D iscontinued capsule Units by 20 mouth daily. Vitamin D, Take by 0 10/27/19 Discontin ued Cholecalciferol, 1000 mouth. 20 UNITS TABS meloxicam (MOBIC) 7.5 Take 2 Tabs 30 Tab 2 Discontinued MG tablet by mouth 8 20 daily. Calcium-D (CALTRATE Take by 0 10/27/19 Discontinued 600+D) 600-400 MG-UNIT mouth. 20 TABS FREESTYLE LANCETS MISC 0 0 Discontinued 20 Carbonyl Iron (FEOSOL Take 325 mg 0 Discontinued OR) by mouth. 20 Linagliptin Take 5 mg by 0 10/27/19 Disco ntinued (TRADJENTA) 5 MG TABS mouth. 20 methocarbamol Take 500 mg 0 10/27/19 Disc ontinued (ROBAXIN) 500 MG by mouth. 20 tablet pregabalin (LYRICA) 75 Take 1 Cap 90 Cap 1 Discontinued MG capsuleIndications: by mouth 8 20 Primary localized every osteoarthrosis of morning. lower leg, unspecified laterality Elastic Bandages & Use for both 2 Each 2 10/27/19 Discontinued Supports (KNEE BRACE) knees when 8 20 MISCIndications: standing Primary localized osteoarthrosis of lower leg, unspecified laterality lidocaine (LIDODERM) 5 Place 1 60 Patch 1 0 Discontinued % patchIndications: Patch onto 8 20 Spondylolisthesis of the skin lumbar region, Primary every 24 localized hours. osteoarthrosis of lower leg, unspecified laterality tramadol (ULTRAM) 50 Take 1 Tab 60 Tab 2 10/27/19 Discontinued MG tablet by mouth 2 8 20 (Reorder) times daily as needed for Pain. Take upto 2/day as needed Diclofenac Sodium 1 % APPLY TO 800 g 1 10/27/19 Discontinued GELIndications: AFFECTED 0 20 Primary localized AREA 4 GRAMS osteoarthrosis, lower 3 TIMES A leg, unspecified DAY laterality pregabalin (LYRICA) Take 1 Cap 90 Cap 1 10/27/19 Discontinued 150 MG by mouth 0 20 (Reorder) capsuleIndications: daily. Take Primary localized at night osteoarthrosis of lower leg, unspecified laterality documented as of this encounter (statuses as of 10/28/2019) Active Problems Problem Noted Date Encounter for long-term current use of medication 12/22 Pes anserine bursitis 07/15/2017 Impingement syndrome of right shoulder 07/02/2016 Hepatocellular carcinoma (HCCode) 07/02/2016 Spondylolisthesis of lumbar region 01/20/2015 Frequent falls 01/20/2015 Primary localized osteoarthrosis, lower leg 12/26/2012 Osteoarthritis, multiple sites 12/12/2012 Knee pain, right 12/12/2012 Elevated liver enzymes 05/16/2010 Last Assessment & Plan: Her ALT/AST are mildly elevated secondar y to steatohepatitis and fibrosis. Her synthetic function is preserved. I recom mend continuing to monitor her enzymes. Rectal bleeding 05/16/2010 Last Assessment & Plan: Her rectal bleeding is not of a liver et iology. I recommend follow-up with Yvette (Have reports sent to [facility]. ARTHRITIS 06/14/2008 Last Assessment & Plan: I suggest follow-up with her PCP. URINARY TRACT INFECTION 06/14/2008 HYPOTHYROIDISM 12/04/2007 Last Assessment & Plan: Her TSH was 1.6 on 06/09/08. I suggest follow-up with her PCP for further monitoring and treatment as necessary. LAMINECTOMY, HX OF 12/04/2007 Last Assessment & Plan: I suggest continued follow-up with managing physician. 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 Her platelet count of 04/24/10 was 139,000. I recommend she avoid antiplatelets, anticoagulants, NSAIDs an d any activity that could result in injury and bleeding. HYPERLIPIDEMIA 11/28/2006 Last Assessment & Plan: Hyperlipidemia is a risk for steatosis. I suggest continued follow-up with managing physician. ESOPHAGEAL VARICES W/OUT BLEED 11/28/2006 Last Assessment & Plan: She reportedly had an EGD (report not available). Her EGD in 09/28 had no mention of varices. She has noncardioselective beta blockage with propranolol. Propranolol was increased to 40 mg BID with an expectation that her heart rate would be reduced to 58 +/- 6. I; her heart rate is 89. We will not change her current dose of propranolol at present since her last EGD had no mention of varice s. She reports propranolol was increase d by PCP for blood pressure purposes. I recommend referral back to Dr. Alvarez for repeat EGD and that 09/29 report be faxed to us. I will give further recommenda tions for propranolol dosing after revie w of her EGD. MUSCLE SPASM 11/28/2006 ABDOMINAL PAIN 11/28/2006 FATTY LIVER NON-ALCOHOLIC 05/30/2006 Last Assessment & Plan: Her steatosis is biopsy proven. Her risk factors are obesity, diabetes and hyperlipidemia. I recommend reduction of risk factors with A low fat low carbohydrate diet and exercise, tight glycemic control. PORTAL HYPERTENSION 05/30/2006 SCREENING FOR IMMUNITY NEC 05/30/2006 SCREENING FOR MALIGNANCY 05/30/2006 Last Assessment & Plan: Cirrhosis has a risk of HCC. See HPI for results of her MRI of 05/12/10 . AFP of 05/04/10 was 4.8. AASLD guidelines recommend imaging and AFP every six months. OBESITY 05/30/2006 Last Assessment & Plan: Her BMI is 31.8 which is decreased from 33 at her 07/28/09 visit. Obesity has a risk of fatty liver disease and is an accelerant of fibrosis. I discussed with her that weight loss is essential to her li rosana health as well as reducing comorbidi ties of her general health. I emphasized that obesity is an obstacle for transplantation if the need arises and that if she is not able to accomplish weight loss , a goal for her liver care, it would be prudent to follow-up with her PCP. She is limited in her ability to exercise secondary to her joint/arthritis problems. I strongly suggest diet and exercise as tolerated for weight loss. DIABETES MELLITUS 05/30/2006 Last Assessment & Plan: Diabetes is a risk for steatosis. I suggest continued follow-up with managing physician for tight glycemic control. CIRRHOSIS OF LIVER 11/28/2005 Last Assessment & Plan: Mrs. Cowan is a 69 year old white female with biopsy-proven cirrhosis secondary to steatohepatitis. Her synthetic function is well preserved although she has portal hypertension manifested by esopha geal varices (controlled). Her MELD sco re was 8 by 04/24/10 labs which indicates that she is early for transplant and her cirrhosis is unchanged. Cirrhosis guidelines with complications needing medical attention were reviewed with her. I dis cussed with her the importance for continued monitoring of her cirrhosis that requires six month visits. I reveiwed with her the fact that weight is an obstacle t o liver transplantation if the need jyothi es. I recommend continuing to monitor her for any signs of deterioration. documented as of this encounter (statuses as of 10/28/2019) Resolved Problems Problem Noted Date Resolved Date Abnormal Liver Function Tests 05/16/2010 Last Assessment & Plan: Her ALT/AST are mildly elevated secondary to steatohepatitis and fibrosis. Her synthetic function is preserved. I recommend continuing to monitor her enzymes. documented as of this encounter (statuses as of 10/28/2019) Immunizations Name Administration Dates Next Due Influenza Hd 01/15/2018 documented as of this encounter Social History Tobacco Use Types Packs/Day Years Used Date Never Smoker Smokeless Tobacco: Never Used Alcohol Use Drinks/Week oz/Week Comments No Alcoholic Drinks /day: no Sex Assigned at Date Recorded Not on file Job Start Date Occupation Industry Not on file Not on file Not on file Travel History Travel Start Travel End No recent travel history available. COVID-19 Exposure Response Date Recorded In the last month, have you been in contact with No / Unsure 10/27/2019 12:39 PM CDT someone who was confirmed or suspected to have Coronavirus / COVID-19? documented as of this encounter Last Filed Vital Signs Vital Sign Reading Time Taken Comments Blood Pressure 145/70 10/27/2019 1:11 PM CDT Pulse 69 10/27/2019 1:11 PM CDT Temperature 35.9 C (96.7 F) 10/27/2019 1:11 PM CDT Respiratory Rate 17 10/27/2019 1:11 PM CDT Oxygen Saturation 93% 10/27/2019 1:11 PM CDT Inhaled Oxygen Concentration - - Weight 76.4 kg (168 lb 6.4 oz) 10/27/2019 1:11 PM CDT Height 157.5 cm (5' 2") 10/27/2019 1:11 PM CDT Body Mass Index 30.8 10/27/2019 1:11 PM CDT documented in this encounter Progress Notes Lizett Fairbanks MD - 10/27/2019 2:30 PM CDT Sirisha Cowan is a 78 y.o. female here for follow up-Cirrhosis hepatocellular cancer-DJD/kneeosteoarthritis -left ANIVAL in 2017 and in rehab 06/09-1.Stable tracer activity in the cervical and lumbar spine favors degenerative change control analyst metastatic disease. 2.Degenerative changes noted in the axial and appendicular skeleton. CURRENT MEDS: Currently LYRICA To 150 mg at night Tramadol 1-2/day Pending MRI and liver oncology follow up HBA1C around 6.2 10/09-walker gave way fell from back-CT Spine in followup showed possible compression fracture in addition to DJD Wants to discuss walker,pain medication-has not seen PCP Also compression fracture Past Medical History: Diagnosis Date Abnormal liver function Angina Arthritis Back & feet - steroid injections Cirrhosis (HCCode) 2 to [facility] with portal htn, eso varicies. Dr. Alvarez Diabetes Diverticulitis of large intestine left sided Hypercholesterolemia Hypertension IBS (irritable bowel syndrome) Obesity Osteoarthritis 03/18/2012 cervical spine Steatosis of liver Type II or unspecified type diabetes mellitus without mention of complication, not stated as uncontrolled REVIEW OF SYSTEMS: Constitutional: negative HEENT: negative Cardiovascular: negative Respiratory: negative Genitourinary: negative Musculoskeletal:as in HPI GI:cirrhosis Skin: negative Neuro: negative Endo: diabetes Hemat: low platelets Psych:negative PHYSICAL EXAM: Vital Signs Height: 5' 2" (157.5 cm) Weight - Scale: 168 lb 6.4 oz (76.4 kg) Temp: 96.7 F (35.9 C) Pulse: 69 Respirations: 17 BP: 145/70 Patient Position: Sitting Cuff Size: regular BP Location: left arm Height and Weight BSA (Calculated - sq m): 1.83 sq meters BMI (Calculated): 30.9 Predicted Body Weight: 110.45 General: Constitutional: Obese older lady in distress secondary to pain in leg-cannot bear weight and needs to be helped on to exam table HEENT: Mouth/Throat: Oropharynx is clear and moist. Eyes: Extraocular motions are normal. Pupils are equal, round, and reactive to light. Neck: Normal range of motion. Neck supple. Cardiovascular: Normal heart sounds No murmur heard. Pulmonary/Chest: Breath sounds normal Abdominal: Soft. No distension. No tenderness. Neurological: Nonfocal Skin: Brusing, scattered age-related changes Extremities: No edema. Good distal pulses. Musculoskeletal exam: DIP: +Heberdens nodules PIP: +Bouchards nodules on L 5th digit MCP: No tenderness, no synovitis, no edema Hips: Full painless ROM, no effusions or warmth, no tenderness Knees: Bilateral knees bony enlargement, crepitus and varus deformity, +tenderness L infrapatellar,L knee pain with passive ROM, R knee without tenderness or pain with movement, edema of medial to bilateral patellae Ankles: Full painless ROM, no effusions or warmth. Feet: Ankle edema Shoulders: FROM, mild pain of R shoulder with full flexion and abduction IMPRESSION AND PLAN Sirisha Cowan is 77 y.o. female seen today for disease management- osteoarthritis in back /knees in background of cirrhosis and liver disease that limit therapeutic options. Also back pain spondylolisthesis downstream hip arthritis; L hip fracture 2017 s/p L THR. Has had steroids and visco supple mentation injections in both knees over years. Has had steroid injections in LS spine/feet in the past and topical NSAIDS. Spondylolisthesis of lumbar region -continue Lyrica to 150 mg at night - Lidoderm 5% patch prn not approved try Sal[place]as Richies topical refilled Primary localized osteoarthrosis of lower leg, unspecified laterality - AMB REF TO PT EXTERNAL for evaluation for walker,appropriate bracing for knee-fall precautions Tramadol refi Compression fracture of lumbar vertebra with routine healing, unspecified lumbar vertebral level, subsequent encounter - Update DEXA - COMPREHENSIVE METABOLIC PANEL - VITAMIN D 25 HYDROXY - DEXA BONE DENSITY SPINE AND HIP; Future NSAID long-term use Update COMP RTC 6 months Total time -30 minutes including care coordination Sheridan morales MA - 10/27/2019 1:47 PM CDT5 maddi samples [id number] lectronically signed by Sheridan Montalvo MA at 10/28/2019 2:48 PM CDT documented in this encounter Plan of Treatment Date Type Specialty Care Team Description 05/03/2020 Office Visit Rheumatology Lizett Fairbanks MD [address] [place], [place] [address] [phone] Name Type Priority Associated Diagnoses Order S chedule DEXA BONE DENSITY Imaging Routine Compression fracture of 1 Occurrences starting SPINE AND HIP lumbar vertebra with 2019 until routine healing, 10/26/2020 unspecified lumbar vertebral level, subsequent encou nter Osteopenia, unspecified location Name Type Priority Associated Diagnoses Order S chedule AMB REF TO PT Outpatient Referral Routine Primary localized Or dered: EXTERNAL osteoarthrosis of lower 10/2019 leg, unspecified laterality Spondylolisthesis of lumbar region Compression fracture of lumbar vertebra with routine healing, unspecified lumbar vertebral level, subsequent encounter Health Maintenance Due Date Last Done Comments TETANUS SHOT (ADULT) 1955 ANNUAL DIABETIC FOOT EXAM 1960 ANNUAL DIABETIC RETINOPATHY SCREENING 1960 BMI FOLLOW UP PLAN 1960 FALL SCREEN 12/31/2007 PNEUMOVAX >=65 (PPSV23) 12/31/2007 MEDICARE AWV (Initial) 06/01/2013 FLU VACCINE > 6 MONTHS 11/21/2019 01/15/2018, 01/15/2018 OSTEOPOROSIS SCREENING Completed 07/13/2016 documented as of this encounter Procedures Procedure Name Priority Date/Time Associated Comments Diagnosis VITAMIN D 25 HYDROXY Routine 10/27/2019 2:05 Osteopenia, Res ults for this PM CDT unspecified procedure are i n location the results section. COMPREHENSIVE Routine 10/27/2019 2:05 Osteopenia, Results fo r this METABOLIC PANEL PM CDT unspecified procedure ar e in location the results section. documented in this encounter Results VITAMIN D 25 HYDROXY (10/27/2019 2:05 PM CDT) Pathologist [facility] VITAMIN D 40 SEE BELOW CPL 25-HYDROXY Comment: NG/ML NOTE: 25-HYDROXYVITAMIN D ASSAY INCLUDES 25-HYDROXYVIT IGNACIO D2 AND D3. METHODOLOGY IS CHEMILUMINESCENT IMM UNOASSAY. $$$$$ INTERPRETIVE RANGES $$$$ $ PEDIATRIC (<17 YEARS) . . . . . . . . . . . NG/ML 20-100 ADULT: INSUFFICIENT . . . . . . . . . . . . . . NG/ML <20 SUBOPTIMAL . . . . . . . . . . . . . . . NG/ML 20-29 OPTIMAL . . . . . . . . . . . . . . . . . NG/ML 30-100 Unless Otherwise Indicated, All Testing Pe rformed At: [facility], [address] [place], [place] [id number] Laborer Electroplating: Miriam Morales CLIA Number [id number] [place] [id number] Specimen Blood Performing Organization Address City/State/Zipcode Phone Number [address] [address] COMPREHENSIVE METABOLIC PANEL (10/27/2019 2:05 PM CDT) Pathologist [facility] GLUCOSE 143 (H) 70 - 99 MG/DL CPL BLOOD UREA NITROGEN 8 8 - 23 MG/DL CPL CREATININE 0.66 0.60 - 1.30 CPL MG/DL EGFR AA 99 >60 CPL ML/MIN/1.73 EGFR 86 >60 CPL ML/MIN/1.73 BUN/CREAT RATIO 12 6 - 28 RATIO CPL SODIUM 140 133 - 146 CPL MEQ/L POTASSIUM 3.8 3.5 - 5.4 CPL MEQ/L CHLORIDE 101 95 - 107 CPL MEQ/L CO2 25 19 - 31 MEQ/L CPL CALCIUM 9.5 8.5 - 10.5 CPL MG/DL PROTEIN TOTAL 7.5 6.1 - 8.3 CPL G/DL ALBUMIN 4.1 3.5 - 5.2 CPL G/DL GLOBULINS, SERUM, 3.4 1.9 - 3.7 CPL TOTAL G/DL A/G RATIO 1.2 1.0 - 2.6 CPL RATIO BILIRUBIN TOTAL 1.5 (H) <=1.2 MG/DL CPL ALKALINE 136 40 - 142 U/L CPL PHOSPHATASE AST (SGOT) 45 (H) 9 - 40 U/L CPL ALT (SGPT) 21 5 - 40 U/L CPL Comment: Unless Otherwise Indicated, All Testing Pe rformed At: [facility], [address] [place] [address] Laborer Electroplating: Miriam Morales CLIA Number [id number] [place]. [id number] Specimen Blood Performing Organization Address City/State/Zipcode Phone Number [facility] [address] [place] [address] documented in this encounter Visit Diagnoses Diagnosis Primary localized osteoarthrosis of lowe r leg, unspecified laterality - Primary Spondylolisthesis of lumbar region Acquired spondylolisthesis Compression fracture of lumbar vertebra with routine healing, unspecified lumbar vertebral level, subsequent encounter Osteopenia, unspecified location NSAID long-term use Encounter for long-term (current) use of non-steroidal anti-inflammatories documented in this encounter Insurance Payer Benefit Plan / Subscriber ID Effective Dates Phone Addre ss Type Group [employer] MED[employer]ARE PLAN PPO xxxxxxxx 2013-Present [address] [place] [address] documented as of this encounter Advance Directives For more information, please contact: [phone] Type Date Recorded Patient Soil Analyst Explanati on Advance Directives and Living Will Power of Manager Unit
[2020-01-19] MEDS ORDERED: NA CHLORIDE 0.9% 1,000 ML ONE (17:57)
[2020-01-19] MEDS ORDERED: CEFTRIAXONE/SWI 1gm 1 GM/10 ML SYR ONE (17:57)
[2020-01-19] MEDS ORDERED: ONDANSETRON 4 MG/2 ML VIAL ONE (17:57)
[2020-01-19] MEDS ORDERED: MORPHINE 2 MG/ML SYR ONE (17:57)
[2020-01-19 18:04] LABS: Absolute Lymphocytes (CBC) 1.1 K/uL (0.7-4.9); Basophils % 0.6 % (0-1.3); Hematocrit 36.9 % (36.0-45.0); Lymphocytes % 14.7 % (15.3-44.8); Protime INR 1.46; RBC Red Blood Cell Count 4.14 M/uL (3.86-4.86)
[2020-01-19 18:21] LABS: ALT/SGPT 19 U/L (12-78); AST/SGOT 31 U/L (15-37); Albumin 2.7 g/dL (3.4-5.0); Alkaline Phosphatase 106 U/L (45-117); BUN Blood Urea Nitrogen 7 mg/dL (7-18); Bicarbonate 28 mmol/L (21-32); Bilirubin Direct 0.6 mg/dL (0-0.2); Bilirubin Total 1.3 mg/dL (0.2-1.0); Glucose Level 261 mg/dL (74-106); Lipase 53 U/L (73-393); Magnesium 1.8 mg/dL (1.8-2.4); NT PRO-BNP 65 pg/mL (<450); Potassium 3.6 mmol/L (3.5-5.1); Protein, Total 6.9 g/dL (6.4-8.2); Sodium Level 138 mmol/L (136-145); Troponin (Emerg Dept Use Only) < 0.02 ng/mL (0.0-0.045)
--- NOTE | 2020-01-19 18:24 | RAD REPORT ---
EXAM DESCRIPTION: RAD - Chest Single View - 01/19/2020 5:56 pm CLINICAL HISTORY: Chest pain;Abdominal distention Chest pain. COMPARISON: Chest Pa And Lat (2 Views) dated 02/10/2019; Chest Pa And Lat (2 Views) dated 07/17/2018; Chest Single View dated 01/03/2017; Chest Single View dated 12/02/2016 FINDINGS: Portable technique limits examination quality. The lungs are grossly clear. The heart is mildly prominent. No displaced fractures. IMPRESSION: No acute intrathoracic process suspected.
--- NOTE | 2020-01-19 18:33 | RAD REPORT ---
EXAM DESCRIPTION: CT - Angio Aorta For Dissection - 01/19/2020 6:02 pm CLINICAL HISTORY: Chest pain radiating to the back. Pain;Abdominal distention;Dissection COMPARISON: Spine Lumbar Wo Con dated 10/15/2019 TECHNIQUE: CT angiography of the aorta was performed with MIPs. All CT scans are performed using dose optimization technique as appropriate and may include automated exposure control or mA/KV adjustment according to patient size. FINDINGS: A left aortic arch is present with normal branching pattern of the great vessels.No acute aortic finding is seen such as aneurysm, penetrating ulcer or dissection. The celiac axis, SMA, TERRIE and renal arteries are patent. No evidence of pulmonary embolism. Linear atelectasis is present in both lung bases. Liver cirrhosis is identified. A TIPS shunt is noted which appears to be occluded is no contrast is s een within the TIPS.Several irregular enhancing masses are present in the right hepatic lobe the larg est inferiorly measuring 6.3 x 6.0 cm. Likely this represents hepatocellular carcinoma. Cholecystecto my clips.The spleen, pancreas, adrenal glands kidneys show no acute process. Mild ascites is noted.Edematous appearance to the omentum and small bowel mesentery is noted. Small f at containing umbilical hernia. Small poorly defined mass is present in the anterior omentum just sup erior to the umbilical region measuring 22 x 17 mm. This may indicate omental metastasis. Posterior left fifth rib demonstrates a fracture with small area of underlying lucency. Pathologic fr acture is a possibility. Compression fracture is present involving L1 vertebral body with estimated vertebral body height loss of 25%.This is chronic in timeframe. IMPRESSION: Advanced liver cirrhosis pattern seen with irregular necrotic masses in the right lobe o f the liver likely hepatocellular carcinoma.Advise correlation with alpha fetoprotein levels. TIPS shunt is in place, however it has suspected to be occluded. Mild ascites. Possible pathologic rib fracture posterior left fifth rib. Small mass in the anterior greater omentum superior to the umbilical region could indicate omental me tastasis.
[2020-01-19 18:47] LABS: Urine Blood TRACE (NEG); Urine Glucose 2+ (NEG); Urine Protein 1+ (NEG); Urine Specific Gravity 1.025 (1.005-1.030)
--- NOTE | 2020-01-19 18:56 | ER ---
Nurse's Notes [facility] Name: Sirisha Cowan Age: 79 yrs Sex: Female : 1940 Arrival Date: 01/19/2020 Time: 16:21 Bed 17 Private MD: Diagnosis: Urinary tract infection, site not specified;Unspecified cirrhosis of liver;Type 1 diabetes mellitus;Strain of muscle and tendon of back wall of thorax;Strain of muscle and tendon of front wall of thorax;Fracture of one rib, left side-pathologic;Ascites-small anterior greater omentum, liver mass, hepatocellular cancer 6.3x6.0 cm Presentation: 01/18 16:36 Chief complaint: Patient states: L sided chest pain, L rib cage, L upper back pain ca1 since Saturday. L leg swells up sometimes since Saturday. Been burping more since Saturday. Denies cough. Denies recent injury. Pain is intermittent. Coronavirus screen: Client denies travel out of the [place] in the last 14 days. At this time, the client does not indicate any symptoms associated with coronavirus-19. Ebola Screen: Patient negative for fever greater than or equal to 101.5 degrees Fahrenheit, and additional compatible Ebola Virus Disease symptoms Patient denies exposure to infectious person. Patient denies travel to an Ebola-affected area in the 21 days before illness onset. No symptoms or risks identified at this time. Initial Sepsis Screen: Does the patient meet any 2 criteria? No. Patient's initial sepsis screen is negative. Does the patient have a suspected source of infection? No. Patient's initial sepsis screen is negative. Risk Assessment: Do you want to hurt yourself or someone else? Patient reports no desire to harm self or others. Onset of symptoms was January 19, 2020. 16:36 Method Of Arrival: Ambulatory ca1 16:36 Acuity: GILMA 3 ca1 Historical: - Allergies: 16:42 No Known Allergies; ca1 - Home Meds: 16:42 bifidobacterium bifidum and longum 4 mg Oral daily [Active]; cholecalciferol (vitamin ca1 D3) 1,000 unit Oral tab daily [Active]; ezetimibe 10 mg Oral 1 tab once daily [Active]; famotidine 40 mg Oral tab 1 tab once daily [Active]; ferrous sulfate 325 mg (65 mg iron) Oral tab daily [Active]; furosemide 20 mg Oral tab 1 tab once daily [Active]; lactulose 20 gram/30 mL Oral soln 2-3 times a day as needed [Active]; levothyroxine 50 mcg tab 1 tab once daily [Active]; Lovaza 1 gram Oral cap 2 times per day [Active]; Novolog 100 unit/mL Sub-Q soln 55 unit BID before meals [Active]; pantoprazole 40 mg Oral TbEC 1 tab 2 times per day [Active]; pregabalin 75 MG Oral 1 cap 2 times per day [Active]; propranolol 40 mg Oral tab 1 tab 2 times per day [Active]; spironolactone 50 mg Oral tab 1 tab once daily [Active]; Tradjenta 5 mg Oral tab 1 tab once daily [Active]; tramadol 50 mg Oral tab q 6hrs prn [Active]; vitamin E 400 unit Oral cap daily [Active]; - PMHx: 16:42 Anemia; awaiting liver transplant; Cirrhosis; Diabetes - IDDM; GERD; High Cholesterol; ca1 Hypertension; Hypothyroidism; - PSHx: 16:42 Appendectomy; Cholecystectomy; Hysterectomy; Bladder suspension; ca1 - Immunization history:: Adult Immunizations up to date. - Social history:: Smoking status: Patient denies any tobacco usage or history of. - Family history:: not pertinent. Screenin:45 Abuse screen: Denies threats or abuse. Nutritional screening: No deficits noted. rb1 Tuberculosis screening: No symptoms or risk factors identified. Fall Risk None identified. Assessment: 16:45 General: Appears in no apparent distress. comfortable, Behavior is calm, cooperative. rb1 Pain: Complains of pain in ribs left side Pain currently is 6 out of 10 on a pain scale. Pain began Pt. reports that she vomited on and she thinks that she may have pulled something because the pain started on Saturday. Neuro: Level of Consciousness is awake, alert, obeys commands, Oriented to person, place, time, situation. Cardiovascular: Patient's skin is warm and dry. Respiratory: Airway is patent Respiratory effort is even, unlabored, Respiratory pattern is regular, symmetrical. GI: No signs and/or symptoms were reported involving the gastrointestinal system. : No signs and/or symptoms were reported regarding the genitourinary system. Derm: Skin is pink, warm \T\ dry. Musculoskeletal: Range of motion: intact in all extremities. 17:30 Reassessment: Patient appears in no apparent distress at this time. No changes from rb1 previously documented assessment. 17:53 Reassessment: Pt. went to CT. rb1 18:30 Reassessment: Patient appears in no apparent distress at this time. Patient and/or rb1 family updated on plan of care and expected duration. Pain level reassessed. Patient is alert, oriented x 3, equal unlabored respirations, skin warm/dry/pink. Vital Signs: 16:36 BP 134 / 60; Pulse 81; Resp 17 S; Temp 97.5(TE); Pulse Ox 97% on R/A; Weight 75.75 kg ca1 (R); Height 5 ft. 2 in. (157.48 cm) (R); Pain 5/10; 17:30 BP 115 / 62; Pulse 78; Resp 16; Pulse Ox 96% ; rb1 18:33 BP 106 / 60; Pulse 89; Resp 17; Pulse Ox 97% ; rb1 19:00 BP 122 / 62; Pulse 86; Resp 23; Pulse Ox 96% on R/A; fu 16:36 Body Mass Index 30.54 (75.75 kg, 157.48 cm) ca1 ED Course: 16:21 Patient arrived in ED. ds1 16:40 Triage completed. ca1 16:42 Arm band placed on right wrist. ca1 16:43 Matthew Galvez MD is Attending Physician. isabel 16:45 Patient has correct armband on for positive identification. Bed in low position. Call rb1 light in reach. Side rails up X 1. panel monitor on. Pulse ox on. NIBP on. Warm blanket given. 17:04 Marlyn Bonilla, RN is Primary Nurse. rb1 17:51 Inserted saline lock: 20 gauge in right forearm, using aseptic technique. Blood dh4 collected. 17:56 XRAY Chest (1 view) In Process Unspecified. EDMS 18:02 CT Aorta for Dissection In Process Unspecified. EDMS 18:48 Parrish Culver MD is Referral Physician. isabel 18:59 Referral Physician role handed off by Parrish Culver MD isabel 19:00 Parrish Culver MD is Referral Physician. isabel 19:20 No provider procedures requiring assistance completed. IV discontinued, bleeding fu controlled, Pressure dressing applied. Administered Medications: 18:17 Drug: NS 0.9% 1000 ml Route: IV; Rate: 125 ml/hr; Site: right antecubital; rb1 19:00 Follow up: IV Intake: 350ml fu 18:17 Drug: morphine 2 mg Route: IVP; Site: right antecubital; rb1 19:00 Follow up: Response: Pain is decreased fu 18:17 Drug: Zofran (Ondansetron) 4 mg Route: IVP; Site: right antecubital; rb1 19:00 Follow up: Response: No adverse reaction fu 18:17 Drug: Rocephin 1 grams Route: IV; Rate: per protocol; Site: right antecubital; rb1 19:00 Follow up: Response: No adverse reaction fu 19:15 Drug: Lactulose 30 grams Volume: 45 ml; Route: PO; fu 19:38 Follow up: Response: Medication administered at discharge. fu 19:15 Drug: Cipro 500 mg Route: PO; fu 19:37 Follow up: Response: Medication administered at discharge. fu Outcome: 18:55 Discharge ordered by [facility] 19:36 Discharged to home ambulatory, with family. fu 19:36 Condition: good 19:36 Discharge instructions given to patient, family, Instructed on discharge instructions, follow up and referral plans. Demonstrated understanding of instructions, follow-up care, Prescriptions given X 3. 19:38 Patient left the ED. fu Signatures: Dispatcher [employer] EDMatthew Baker MD MD cha Sanford, Noy ds1 Marlyn Bonilla RN RN rb1 Glenn Damian RN RN fu Acob, Cheryl, RN RN ca1 Huhn, Donald [facility]
--- NOTE | 2020-01-19 18:56 | EDPHYS ---
Physician Documentation [facility] Name: Sirisha Cowan Age: 79 yrs Sex: Female : 1940 Arrival Date: 01/19/2020 Time: 16:21 Bed 17 Private MD: Matthew Aldana HPI: 01/18 17:21 This 79 yrs old Female presents to ER via Ambulatory with complaints of L Side isabel Pain. 17:21 The patient or guardian reports chest pain that is located primarily in the anterior isabel chest wall, left. Onset: 2 day(s) ago. The patient presents with abdominal pain in the left upper quadrant, abdominal distention in the upper abdomen, in the lower abdomen. Onset: The symptoms/episode began/occurred 2 day(s) ago. The pain does not radiate. Associated signs and symptoms: none. Modifying factors: The symptoms are alleviated by remaining still. Associated signs and symptoms: The patient has no apparent associated signs or symptoms. The chest pain is described as aching. Historical: - Allergies: 16:42 No Known Allergies; ca1 - Home Meds: 16:42 bifidobacterium bifidum and longum 4 mg Oral daily [Active]; cholecalciferol (vitamin ca1 D3) 1,000 unit Oral tab daily [Active]; ezetimibe 10 mg Oral 1 tab once daily [Active]; famotidine 40 mg Oral tab 1 tab once daily [Active]; ferrous sulfate 325 mg (65 mg iron) Oral tab daily [Active]; furosemide 20 mg Oral tab 1 tab once daily [Active]; lactulose 20 gram/30 mL Oral soln 2-3 times a day as needed [Active]; levothyroxine 50 mcg tab 1 tab once daily [Active]; Lovaza 1 gram Oral cap 2 times per day [Active]; Novolog 100 unit/mL Sub-Q soln 55 unit BID before meals [Active]; pantoprazole 40 mg Oral TbEC 1 tab 2 times per day [Active]; pregabalin 75 MG Oral 1 cap 2 times per day [Active]; propranolol 40 mg Oral tab 1 tab 2 times per day [Active]; spironolactone 50 mg Oral tab 1 tab once daily [Active]; Tradjenta 5 mg Oral tab 1 tab once daily [Active]; tramadol 50 mg Oral tab q 6hrs prn [Active]; vitamin E 400 unit Oral cap daily [Active]; - PMHx: 16:42 Anemia; awaiting liver transplant; Cirrhosis; Diabetes - IDDM; GERD; High Cholesterol; ca1 Hypertension; Hypothyroidism; - PSHx: 16:42 Appendectomy; Cholecystectomy; Hysterectomy; Bladder suspension; ca1 - Immunization history:: Adult Immunizations up to date. - Social history:: Smoking status: Patient denies any tobacco usage or history of. - Family history:: not pertinent. ROS: 17:21 Constitutional: Negative for fever, chills, and weight loss, Eyes: Negative for injury, isabel pain, redness, and discharge, ENT: Negative for injury, pain, and discharge, Neck: Negative for injury, pain, and swelling, Respiratory: Negative for shortness of breath, cough, wheezing, and pleuritic chest pain, Back: Negative for injury and pain, : Negative for injury, bleeding, discharge, and swelling, MS/Extremity: Negative for injury and deformity, Skin: Negative for injury, rash, and discoloration, Neuro: Negative for headache, weakness, numbness, tingling, and seizure. 17:21 Cardiovascular: Positive for chest pain, of the left lateral posterior chest and left lateral anterior chest. 17:21 Abdomen/GI: Positive for abdominal distension. Exam: 17:21 Constitutional: This is a well developed, well nourished patient who is awake, alert, isabel and in no acute distress. Head/Face: Normocephalic, atraumatic. Eyes: Pupils equal round and reactive to light, extra-ocular motions intact. Lids and lashes normal. Conjunctiva and sclera are non-icteric and not injected. Cornea within normal limits. Periorbital areas with no swelling, redness, or edema. ENT: Nares patent. No nasal discharge, no septal abnormalities noted. Tympanic membranes are normal and external auditory canals are clear. Oropharynx with no redness, swelling, or masses, exudates, or evidence of obstruction, uvula midline. Mucous membranes moist. Neck: Trachea midline, no thyromegaly or masses palpated, and no cervical lymphadenopathy. Supple, full range of motion without nuchal rigidity, or vertebral point tenderness. No Meningismus. Cardiovascular: Regular rate and rhythm with a normal S1 and S2. No gallops, murmurs, or rubs. Normal PMI, no JVD. No pulse deficits. Respiratory: Lungs have equal breath sounds bilaterally, clear to auscultation and percussion. No rales, rhonchi or wheezes noted. No increased work of breathing, no retractions or nasal flaring. Abdomen/GI: Soft, non-tender, with normal bowel sounds. No distension or tympany. No guarding or rebound. No evidence of tenderness throughout. Back: No spinal tenderness. No costovertebral tenderness. Full range of motion. Skin: Warm, dry with normal turgor. Normal color with no rashes, no lesions, and no evidence of cellulitis. MS/ Extremity: Pulses equal, no cyanosis. Neurovascular intact. Full, normal range of motion. Neuro: Awake and alert, GCS 15, oriented to person, place, time, and situation. Cranial nerves II-XII grossly intact. Motor strength 5/5 in all extremities. Sensory grossly intact. Cerebellar exam normal. Normal gait. Psych: Awake, alert, with orientation to person, place and time. Behavior, mood, and affect are within normal limits. 17:21 Chest/axilla: Inspection: normal, Palpation: is normal, Axilla: abscess, is not appreciated, cellulitis, is not appreciated, lymphadenopathy, is not appreciated, mass, is not appreciated, Breasts: are normal, no acute changes, abscess, not appreciated, cellulitis, is not appreciated, mass(es), rash, is not appreciated, Lymph nodes: lymphadenopathy is not appreciated. 18:57 ECG was reviewed by the Attending Physician. [facility] Vital Signs: 16:36 BP 134 / 60; Pulse 81; Resp 17 S; Temp 97.5(TE); Pulse Ox 97% on R/A; Weight 75.75 kg ca1 (R); Height 5 ft. 2 in. (157.48 cm) (R); Pain 5/10; 17:30 BP 115 / 62; Pulse 78; Resp 16; Pulse Ox 96% ; rb1 18:33 BP 106 / 60; Pulse 89; Resp 17; Pulse Ox 97% ; rb1 19:00 BP 122 / 62; Pulse 86; Resp 23; Pulse Ox 96% on R/A; fu 16:36 Body Mass Index 30.54 (75.75 kg, 157.48 cm) ca1 MDM: 16:43 Patient medically screened. isabel 17:26 Differential diagnosis: abnormal EKG, anxiety, chest wall pain, costochondritis, isabel gastritis, pancreatitis, peptic ulcer disease, pneumonia, pneumothorax, diverticulitis, Hepatitis, non-specific abd pain, pancreatitis, urinary tract infection. HEART Score: History: Slightly Suspicious (0), ECG: Normal (0), Age: > or = 65 years (2), Risk Factors: > or = 3 Risk factors for atherosclerotic disease (2), Troponin: < or = 1 x Normal Limit (0). The patient was given aspirin in the Emergency Department. The patient's deep vein thrombosis risk score was calculated as follows: Total Score: 0. This patient was found to be at low risk for a deep vein thrombosis by using the Well's assessment criteria. The patient's pulmonary embolism risk score was calculated as follows: Total Score: 0-2 points. This patient was found to be at low risk for a pulmonary embolism by using the Well's assessment criteria. ROSA Risk Score: 1 - patient's age is greater or equal to 65 years, 1 - Three or more CAD risk factors, 1- Known CAD, TOTAL SCORE = 3. Data reviewed: vital signs, nurses notes, lab test result(s), EKG, radiologic studies, CT scan, plain films. Data interpreted: conveyor monitor: rate is 81 beats/min, rhythm is regular, Pulse oximetry: on room air is 97 %. Test interpretation: by ED physician or midlevel provider: ECG, plain radiologic studies. Counseling: I had a detailed discussion with the patient and/or guardian regarding: the historical points, exam findings, and any diagnostic results supporting the discharge/admit diagnosis, lab results, radiology results, the need for outpatient follow up, for definitive care, an compliance examiner. 19:01 Physician consultation: Parrish Culver MD and will see patient in office, tomorrow. isabel 01/18 17:19 Order name: Basic Metabolic Panel; Complete Time: 18:39 01/18 17:19 Order name: CBC with Diff; Complete Time: 18:08 01/18 17:19 Order name: LFT's; Complete Time: 18:39 01/18 17:19 Order name: Magnesium; Complete Time: 18:39 01/18 17:19 Order name: NT PRO-BNP; Complete Time: 18:39 01/18 17:19 Order name: PT-INR; Complete Time: 18:08 [facility] 01/18 17:19 Order name: Troponin (emerg Dept Use Only); Complete Time: 18:39 [facility] 01/18 17:19 Order name: XRAY Chest (1 view); Complete Time: 18:39 [facility] 01/18 17:19 Order name: Lipase; Complete Time: 18:39 [facility] 01/18 17:19 Order name: AMMONIA; Complete Time: 18:39 [facility] 01/18 17:19 Order name: CT Aorta for Dissection; Complete Time: 18:39 [facility] 01/18 17:19 Order name: Urine Culture isabel 01/18 17:20 Order name: Urine Dipstick--Ancillary (enter results); Complete Time: 18:58 01/18 17:19 Order name: EKG; Complete Time: 17:21 [facility] 01/18 17:19 Order name: Cardiac monitoring; Complete Time: 18:31 [facility] 01/18 17:19 Order name: EKG - Nurse/Tech; Complete Time: 18:58 [facility] 01/18 17:19 Order name: IV Saline Lock; Complete Time: 18:31 [facility] 01/18 17:19 Order name: Labs collected and sent; Complete Time: 18:31 [facility] 01/18 17:19 Order name: O2 Per Protocol; Complete Time: 18:31 [facility] 01/18 17:19 Order name: O2 Sat Monitoring; Complete Time: 18:31 [facility] 01/18 17:19 Order name: Urine Dipstick-Ancillary (obtain specimen); Complete Time: 17:38 isabel EC:57 Rate is 86 beats/min. Rhythm is regular. QRS [place] is Normal. VA interval is normal. QRS isabel interval is normal. QT interval is normal. No Q waves. T waves are Normal. No ST changes noted. Clinical impression: Normal ECG and No evidence of ischemia. Interpreted by me. Reviewed by me. Administered Medications: 18:17 Drug: NS 0.9% 1000 ml Route: IV; Rate: 125 ml/hr; Site: right antecubital; rb1 19:00 Follow up: IV Intake: 350ml fu 18:17 Drug: morphine 2 mg Route: IVP; Site: right antecubital; rb1 19:00 Follow up: Response: Pain is decreased fu 18:17 Drug: Zofran (Ondansetron) 4 mg Route: IVP; Site: right antecubital; rb1 19:00 Follow up: Response: No adverse reaction fu 18:17 Drug: Rocephin 1 grams Route: IV; Rate: per protocol; Site: right antecubital; rb1 19:00 Follow up: Response: No adverse reaction fu 19:15 Drug: Lactulose 30 grams Volume: 45 ml; Route: PO; fu 19:38 Follow up: Response: Medication administered at discharge. fu 19:15 Drug: Cipro 500 mg Route: PO; fu 19:37 Follow up: Response: Medication administered at discharge. fu Disposition: 01/19/20 18:55 Discharged to Home. Impression: Urinary tract infection, site not specified, Unspecified cirrhosis of liver, Type 1 diabetes mellitus, Strain of muscle and tendon of back wall of thorax, Strain of muscle and tendon of front wall of thorax, Fracture of one rib, left side - pathologic, Ascites - small anterior greater omentum, liver mass, hepatocellular cancer 6.3x6.0 cm. - Condition is Stable. - Discharge Instructions: Back Pain, Adult, Chest Wall Pain, Dysuria, Rib Fracture, Urinary Tract Infection, Adult, Chest Wall Pain, [id number]-[id number], Urinary Tract Infection, Adult, Bdwg-it-Dlji, Back Pain, Adult, Fzrw-hg-[id number], Rib Fracture, Fypv-cw-[id number], Type 1 Diabetes Mellitus, Self Care, Adult. - Prescriptions for Cipro 250 mg Oral Tablet - take 1 tablet by ORAL route every 12 hours; 14 tablet. Tylenol- Codeine #3 300-30 mg Oral Tablet - take 2 tablets by ORAL route every 6 hours As needed; 26 tablet. Lactulose 10 gram/15 mL Oral Solution - take 30 milliliter by ORAL route once daily; 300 milliliter. - Medication Reconciliation Form, Thank You Letter, Antibiotic Education, Prescription Opioid Use form. - Follow up: Private Physician; When: 2 - 3 days; Reason: Recheck today's complaints, Continuance of care, Re-evaluation by your physician. Follow up: Parrish Culver; When: 2 - 3 days; Reason: Recheck today's complaints, Continuance of care, Re-evaluation by your physician. Follow up: Parrish Culver MD; When: Tomorrow; Reason: Recheck today's complaints, Continuance of care, Re-evaluation by your physician. - Problem is new. - Symptoms have improved. Signatures: Dispatcher [employer] EDMatthew Baker MD MD cha Barber, Rebecca, ANTONIO ALVAREZ [facility] Glenn Damian RN RN fu Acob, Cheryl, RN RN ca1 Corrections: (The following items were deleted from the chart) 19:00 18:55 01/19/2020 18:55 Discharged to Home. Impression: Urinary tract infection, site isabel not specified; Unspecified cirrhosis of liver; Type 1 diabetes mellitus; Strain of muscle and tendon of back wall of thorax; Strain of muscle and tendon of front wall of thorax; Fracture of one rib, left side - pathologic; Ascites - small anterior greater omentum, liver mass, hepatocellular cancer 6.3x6.0 cm. Condition is Stable. Discharge Instructions: Back Pain, Adult, Chest Wall Pain, Dysuria, Urinary Tract Infection, Adult, Chest Wall Pain, Otex-tr-[id number], Urinary Tract Infection, Adult, Bido-vy-Kill, Back Pain, Adult, Zoix-rf-Nmzc, Type 1 Diabetes Mellitus, Self Care, Adult. Prescriptions for Cipro 250 mg Oral Tablet - take 1 tablet by ORAL route every 12 hours; 14 tablet. and Forms are Medication Reconciliation Form, Thank You Letter, Antibiotic Education, Prescription Opioid Use. Follow up: Private Physician; When: 2 - 3 days; Reason: Recheck today's complaints, Continuance of care, Re-evaluation by your physician. Follow up: Parrish Culver; When: 2 - 3 days; Reason: Recheck today's complaints, Continuance of care, Re-evaluation by your physician. Problem is new. Symptoms have improved. [facility] 19:38 19:00 01/19/2020 18:55 Discharged to Home. Impression: Urinary tract infection, site fu not specified; Unspecified cirrhosis of liver; Type 1 diabetes mellitus; Strain of muscle and tendon of back wall of thorax; Strain of muscle and tendon of front wall of thorax; Fracture of one rib, left side - pathologic; Ascites - small anterior greater omentum, liver mass, hepatocellular cancer 6.3x6.0 cm. Condition is Stable. Discharge Instructions: Back Pain, Adult, Chest Wall Pain, Dysuria, Urinary Tract Infection, Adult, Chest Wall Pain, Arfj-sx-Hqlm, Urinary Tract Infection, Adult, Esqs-ob-Tdiv, Back Pain, Adult, Oxbw-iz-Pkad, Type 1 Diabetes Mellitus, Self Care, Adult, Rib Fracture, Rib Fracture, Cvwr-dd-[id number]. Prescriptions for Cipro 250 mg Oral Tablet - take 1 tablet by ORAL route every 12 hours; 14 tablet, Lactulose 10 gram/15 mL Oral Solution - take 30 milliliter by ORAL route once daily; 300 milliliter, Tylenol-Codeine #3 300-30 mg Oral Tablet - take 2 tablets by ORAL route every 6 hours As needed; 26 tablet. and Forms are Medication Reconciliation Form, Thank You Letter, Antibiotic Education, Prescription Opioid Use. Follow up: Private Physician; When: 2 - 3 days; Reason: Recheck today's complaints, Continuance of care, Re-evaluation by your physician. Follow up: Parrish Culver; When: Tomorrow; Reason: Recheck today's complaints, Continuance of care, Re-evaluation by your physician. Problem is new. Symptoms have improved. isabel
[2020-01-19] MEDS ORDERED: CIPROFLOXACIN HCL 500 MG TAB ONE (19:23)
[2020-01-19] MEDS ORDERED: LACTULOSE 20 GM/30 ML UCUP ONE (19:23)
[2020-01-19 20:03] VITALS: TEMP 97.5
[2020-01-19 20:09] VITALS: BP 122/62; O2SAT 96
--- NOTE | 2020-01-20 05:38 | EKG ---
Test Date: 2020-01-19 Test Time: 18:46:46 Security Officer: DAYNE MEASUREMENT RESULTS: Intervals: Rate: 86 VA: 188 QRSD: 74 QT: 376 QTc: 449 [place]: P: 59 VA: 188 QRS: 23 T: 35 INTERPRETIVE STATEMENTS: Normal sinus rhythm Normal ECG Compared to ECG 01/03/2017 21:11:45 No significant changes Electronically Signed On 01-20-20 05:37:59 CDT by Prasanna Mack
== END 2020-01-19 19:38 | disposition home or self-care (01) ==
LOC: ER 16:17
DX: N39.0 Urinary tract infection, site not specified (principal); R18.8 Other ascites; K74.60 Unspecified cirrhosis of liver; C22.0 Liver cell carcinoma; S29.012A Strain of muscle and tendon of back wall of thorax, initial encounter; S29.011A Strain of muscle and tendon of front wall of thorax, initial encounter; S22.32XA Fracture of one rib, left side, initial encounter for closed fracture; E10.9 Type 1 diabetes mellitus without complications; I10 Essential (primary) hypertension; E03.9 Hypothyroidism, unspecified; R07.89 Other chest pain
CPT/HCPCS: 93005; 87088; 85025; 87086; 80048; 36415; 82140; 83735; 85610; 82565; 80076; 81003; 84484; 83690; 83880; 71275; 74175; 71045; 96375; 96374; 99284; Q9967; J2270; J0696; J7030; J2405; 87077; 87186

== ENCOUNTER 2020-03-05 16:03 | Inpatient (IN) | payer OTHER ==
--- OUTSIDE RECORDS SUMMARY | 2020-03-05 16:05 | XMS REPORT | Clinical Summary ---
:1940 Author Organization [facility] Address [address] [place] [address] Care Team Providers Name Role Phone Krista [...] needs to be seen by nicolasa rhodes human resources specialist. 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 Portal hypertension 09/23/2012 Diabetes mellitus 09/23/2012 Last [...] Dx); Eric Osteopenia, uns pecified location after 03/05/2019 Family History Medical History Relation Name Comments Heart disease Brother Heart disease Father Heart failure Mother Relation Name Status Comments Brother Father Mother Social History Tobacco Use Types Packs/Day Years Used Date Never Smoker Smokeless Tobacco: Never Used Alcohol Use Drinks/Week oz/Week Comments No Sex Assigned at Date Recorded Not on file Last Filed Vital Signs Not on file Plan of Treatment Health Maintenance Due Date Last Done Comments DIABETIC EYE EXAM 1952 DIABETIC FOOT EXAM 1950 URINE MICROALBUMIN 1950 PNEUMOCOCCAL 65+ YRS (2 of 2 - PPSV23) 12/31/2007 7 MEDICARE ANNUAL WELLNESS (YEAR 2 or FIRST YEAR if no 04/23/2014 IPPE) HEMOGLOBIN A1C 11/27/2016 05/30/2016 INFLUENZA VACCINE (#1) 2019 01/15/2018 Implants Implanted Type Area Putaway Driver Device Shelf Model / Identifier Expiration Serial / Date Lot Device Clsr Angio-Seal Vip 6fr [id number] Cardiovascular N/A: [employer] 01/19/2017 [id number] / Implanted: Qty: 1 on 06/19/2016 by Nerissa Cuevas MD at [facility] [place] MED:CARDIAC / SURG [id number] Procedures Procedure Name Priority Date/Time Associated Diagnosis Comme nts XR DXA BONE DENSITY Routine 10/27/2019 2:55 PM Compression fr acture Results for this STUDY CDT of lumbar vertebra procedure are in with routine the results healing, unspecified section . lumbar vertebral level, subsequent encounter Osteopenia, unspecified location after 03/05/2019 Results XR DXA Bone Density Study (10/27/2019 2:55 PM CDT) Specimen Narrative Performed At FINAL REPORT [employer] EXAM: Bone mineral density study HISTORY: Compression fracture of lumbar vertebra with routine healing, unspecified lumbar vertebral le rocío, subsequent encounter Osteopenia, unspecified location, COMPARISON: Previous DEXA 07/13/2016. B aseline DEXA 07/13/2016 (lumbar spine and right hip [...] Yovany Bland MD Report Verified Date/Time: 10/28/2019 10:00:07 Reading Location: [place] [address] Procedure Note Interface, External Ris In - [...] Verified Date/Time: 10/28/2019 1 0:00:07 Reading Location: [place] [address] Performing Organization Address City/State/Zipcode Phone Number GE RIS after 03/05/2019 Insurance Payer Benefit Plan / Subscriber ID Effective Dates Phone Addre ss Type Group AETNA - AETNA MEDICARE [id number] [phone] [address] MEDICARE MGD HMO POS PPO t [id number] [facility] [place] [id number] Advance Directives For more information, please contact: [phone] Code Status Date Activated Date Inactivated Comments [...]
--- OUTSIDE RECORDS SUMMARY | 2020-03-05 16:09 | XMS REPORT | Continuity of Care Document ---
:1940 Author Organization [employer] Care Team Providers Name Role Phone [employer] Unavailable Un available Problems Problem Status Onset Classification Date Comments Sourc e Date Reported S72.032D - "DISPL Active [facility] MIDCERVICAL FX L 017 [place] FEMUR LEFT FEMORAL NECK Active [facility] FX 017 [facility] RECTAL BLEEDING Active [place] 013 GI BLEEDING Active [facility] east 013 GI BLEED Active [facility] st 013 Hematochezia Active Problem 02/01/2017 Data [place] (finding) 013 migrated Medical from [facility], Centricity OPID on 09/18/14. [facility] Internal Active Problem 02/01/2017 Data [facility] hemorrhoids 013 migrated Medical without from [facility], complication Centricity OPID (disorder) on 09/18/14. [facility] Residual Active Problem 02/01/2017 Data [facility] hemorrhoidal skin 013 migrated Me dical tags (disorder) from [facility], Centricity OPID on 09/18/14. [facility] Cirrhosis of Active Problem 02/01/2017 Data [place] liver (disorder) 013 migrated Med ical from [facility], Centricity OPID on 09/18/14. [facility] Esophageal Active Problem 02/01/2017 Data [facility] varices 013 migrated Medical (disorder) from [facility], Centricity OPID on 09/18/14. [facility] Portal Active Problem 02/01/2017 Data [facility] hypertension 013 migrated Medical (disorder) from [facility], Centricity OPID on 09/18/14. [facility] Anemia (disorder) Resolved Problem 02/01/2017 M Ber[facility], OPID [facility] [place] Cirrhosis - Resolved Problem [place] [facility] [facility]order[facility], OP[facility] [place] DM II [Diabetes Resolved Problem 02/01/2017 [facility] mellitus type Medica l II](Confirmed) Tommy r, OPID [facility] Hemorrhoids Resolved Problem [place] [facility] [facility], [facility],M Beronica [facility] Essential Resolved Problem 02/01/2017 [facility] hypertension Medical (disorder) Center, OPID [facility] 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[facility] neoplasm of liver Me dical (disorder) Center, OPID [facility] Metatarsal bone Active Problem 02/01/2017 [facility] fracture Medical (disorder) Center, OP[facility] Diverticulum Resolved Problem 02/17/2013 [place] the[facility] (morphologic abnormality) DM II [Diabetes Resolved Problem 02/17/2013 [place] mellitus type II] HTN Resolved Problem 02/17/2013 [facility] 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 Lactulose 667 Notes: (Same Inactive [facility] [place] MG/ML Oral as:Chronulac) 2017 [facility] potassium Notes: (Same Inactive [facility] phosphate-sodium as: Phos-NaK) 2017 edical phosphate 155 Each 1.5 gm Cente r mg-350 mg oral pkt has 250mg tablet phosphorous. Mix w/2.5oz water and stir. Monobasic Notes: (Same Inactive [facility] potassium as: Phos-NaK) 2017 Medical phosphate 155 MG Each 1.5 gm Ce nter / Sodium pkt has 250mg Phosphate, phosphorous. Monobasic 350 MG Mix w/2.5oz Oral Tablet water and stir. Lovenox Notes: (Same No Longer [facility] as: Lovenox) Active 2017 [facility] [place] Magnesium Notes: WASTE: Inactive [facility] s Sulfate F/P - Sink; E 2017 Medical [facility] Trash Bin influenza virus Notes: (Same Inactive [facility] vaccine, as: Fluzone 2017 Medical inactivated Quadrivalent, [place] Fluarix Quadrivalent) For 3 years of age and older (0.5 mL IM) Shake well before use cyclobenzaprine Notes: (Same No Longer [facility] As: Flexeril) Active 2017 Medical [place] Ergocalciferol Notes: (Same No Longer [place] [address] UNT Oral as: Vitamin Active 2017 Medic al Capsule D) "Do Not Center Crush" Calcium Notes: No Longer [facility] Carbonate 1250 (calcium Active 2017 Medical MG / carbonate-vit Center Cholecalciferol D 400 UNT Chewable 500mg-400unit Tablet TAB) Same as: Oyster-D, OsCal-D Baclofen Notes: 5 mg No Longer [facility] =1/2 of 10 mg Active 2017 Medical Tab (Same As: [place] Lioresal) Cefazolin Notes: (Same No Longer [place] [...] 01/05/17 10:33:00 CDT neostigmine Route: IV, Inactive [facility] (ANES) Drug form: 2017 Medical INJ, ONCE, Center Stop date: 01/05/17 10:33:00 CDT calcium chloride Route: IV, Inactive [facility] (ANES) Drug form: 2016 Medical INJ, ONCE, Center Stop date: 01/05/17 10:33:00 CDT dexamethasone Route: IV, Inactive [place] (ANES) Drug form: 2017 Medical INJ, ONCE, Center Stop date: 01/05/17 10:02:00 CDT esmolol (ANES) Route: IV, [place] Drug form: 2017 Medical INJ, ONCE, Center Stop date: 01/05/17 9:07:00 CDT famotidine Route: IV, Inactive [facility] (ANES) Drug form: 2017 Medical INJ, ONCE, Center Stop date: 01/05/17 9:07:00 CDT ferrous sulfate Notes: Give No Longer [place] 325 MG Oral with food. Active 2017 Medical Tablet [Feosol] "Do Not Center Crush" Furosemide 20 MG Notes: (Same No Longer [facility] Oral Tablet as: Lasix) Active 2017 Medical [Lasix] May cause GI Center upset. Give with food or milk. Zetia Notes: (Same No Longer [facility] as: Zetia) Active 2017 Medical Center Cholecalciferol Notes: Same No Longer [facility] as : Vitamin Active 2017 Medical D3 Center Streptococcus Notes: Shake Inactive [place] pneumoniae well prior to 2017 Medical serotype 1 use (Same Center capsular antigen as: Prevnar diphtheria 13) [id number] protein conjugate vaccine / Streptococcus pneumoniae serotype 14 capsular antigen diphtheria [id number] protein conjugate vaccine / Streptococcus pneumoniae serotype 18C capsular antigen d Spironolactone Notes: (Same No Longer [place] As: Active 2017 Medical Aldactone) Center [place] 8.6 mg Notes: (Same No Longer [place] oral tablet as: Senokot) Active 2017 [facility] Center Protonix Notes: Tablet No Longer [place] should not be Active 2017 [facility] chewed or Center crushed. (Same as: Protonix) phenylephrine Route: IV, Inactive [place] (ANES) Drug form: 2016 Medical INJ, ONCE, Center Stop date: 01/05/17 8:52:00 CDT lidocaine (ANES) Route: IV, Inactive [facility] Drug form: 2016 Medical INJ, ONCE, Center Stop date: 01/05/17 8:47:00 CDT propofol (ANES) Route: IV, Inactive [place] Drug form: 2016 Medical INJ, ONCE, Center Stop date: 01/05/17 8:47:00 CDT rocuronium Route: IV, Inactive [place] (ANES) Drug form: 2017 Medical INJ, ONCE, Center Stop date: 01/05/17 8:47:00 CDT ondansetron Route: IV, Inactive [facility] (ANES) Drug form: 2016 Medical INJ, ONCE, Center Stop date: 01/05/17 8:47:00 CDT ceFAZolin (ANES) Route: IV, Inactive [facility] Drug form: 2017 Medical INJ, ONCE, Center [...] 8:40:00 CDT Hydromorphone 0.5 mg, Inactive [place] Route: IVP, 2016 Medical Q5Min, Dosing Center Weight 81.818, kg, PRN Pain Score 7-10, Start date: 01/05/17 8:40:00 CDT, Duration: 4 doses or times, Stop date: Limited # of times Naloxone 0.4 mg, Inactive [place] Route: IVP, 2016 Medical Q2MIN, Dosing Center [...] water Center or juice. (Same as: Miralax) [place]-3 Acid Notes: (Same No Longer [place] Ethyl Esters as: MaxEPA, Active 2016 Medical (RESIDENTIAL) 1000 MG [place] 3 fish Cente r Oral Capsule oil ) [Lovaza] Non-Formulary Drug NovoLOG 70/30 55 unit, Inactive [place] Route: SUB-Q, 2017 Medical BID-Before Center Meals, [...] 25 gm, 50 mL, No Longer [place] Syringe Route: IVP, Active 2016 Medical Drug Form: Center INJ, Dosing Weight 81.818, kg, PRN, PRN Blood Glucose Results, Start date: 01/04/17 11:51:00 CDT, Duration: 30 day, Stop date: 02/03/17 11:50:00 CDT Glucagon 1 mg, Route: No Longer [place] IM, Drug Active 2016 Medical form: Center PDR/INJ, PRN, Dosing Weight 81.818, kg, PRN Blood Glucose Results, Start date: 01/04/17 11:51:00 CDT, Duration: 30 day, Stop date: 02/03/17 11:50:00 CDT Oxycodone Notes: (Same No Longer [place] Hydrochloride 5 as: Active 2016 Medical MG Oral Tablet Roxicodone) Cente r Lactulose 667 Notes: (Same No Longer [place] MG/ML Oral as:Chronulac) Active 2016 Medical Solution [place] Furosemide 20 MG 20 mg = 1 Active [place] Oral Tablet tab, PO, 2017 Medical [Lasix] Daily, # 30 Center tab, 0 Refill(s) Linagliptin 5 MG 5 mg = 1 tab, Active 01/04/ H [place] Oral Tablet PO, Daily, # 2016 Medical [Tradjenta] 30 tab, 3 Center Refill(s) lactulose 20 g = 1 Pack, PO, No Longer 01/04/ H [place] oral powder BID, # 20 gm, Active 2016 Medica l 0 Refill(s) Center Lovaza 1,000 mg =, No Longer [place] PO, BID, 0 Active 2016 Medical Refill(s) [place] NovoLOG 70/30 55 unit, Active [place] SUB-Q, 2017 Medical BID-Before Center Meals, 0 [...] CDT Morphine Notes: (Same No Longer [place] as:MORPhine Active 2016 Medical Sulfate) Center Ondansetron Notes: (Same [place] Longer [place] as: Zofran) Active 2016 Medical Center MEDICATION WASTE Product Size: 4 mg Product Wasted: ___ mg Ondansetron Notes: (Same Inactive [place] as: Zofran) 2017 Medical Center MEDICATION WASTE Product Size: 4 mg Product Wasted: ___ mg Morphine Notes: (Same Inactive [place] as:MORPhine 2016 Medical Sulfate) [place] Lasix 20 mg oral 20 mg, 1 [...] tab, Inactive [place] tablet Route: PO, 2012 [facility] Drug form: TAB, Daily, Dosing Weight 84.3, kg, Start date: 02/10/13 9:00:00, Duration: 30 day, Stop date: 03/11/13 9:00:00(Same as: Lasix) May cause GI upset. Give with food or milk. Tessalon Perles 100 mg, 1 No Longer [place] 02/10/ MH cap, Route: Active 2012 [facility] PO, Drug form: CAP, TID, Dosing Weight 84.3, kg, PRN Cough, Start date: 02/09/13 23:03:00, Duration: 30 day, Stop date: 03/11/13 23:02:00(Same As: Tessalon Perles) "Do Not Crush" spironolactone 50 mg, 2 tab, No Longer [place] MH Route: PO, Active 2012 [facility] Drug form: TAB, BID, Dosing Weight 84.3, kg, Start date: 02/09/13 17:00:00, Duration: 30 day, Stop date: 03/11/13 9:00:00(Same As: Aldactone) Protonix 40 mg, 1 tab, No Longer [place] MH Route: PO, Active 2012 [facility] Drug form: ECTAB, Q12H, Dosing Weight 84.3, kg, Start date: 02/08/13 21:00:00, Stop date: 03/10/13 9:00:00Tablet should not be chewed or crushed. (Same as: Protonix) Anusol-HC 2.5% 1 appl, No Longer Voloyiannis 02/08/ MH rectal cream Route: ID, Active 2012 [place] with applicator BID, Drug form: CRM, Start date: 02/08/13 17:00:00, Duration: 30 day, Stop date: 03/10/13 9:00:00 HC Pramoxine 1 appl, TOP, Active Voloyiannis 02/08/ MH 2.5%-1% topical TID, 28 gm, 2012 [place] cream Substitution Allowed, Maintenance, CRM nitroglycerin 0.4 mg, 1 No Longer [place] 02/08/ MH 0.4 mg tab, Route: Active 2012 [facility] sublingual SL, Drug tablet form: TAB, Q5Min, PRN Chest Pain, Start date: 02/08/13 9:05:00, Duration: 30 day, Stop date: 03/10/13 8:04:00(Same as:Nitroquick , Nitrostat) "Do Not Crush" Sublingual tablet atropine 0.5 mg, 5 mL, No Longer [place] Route: IVP, Active 2012 [facility] Drug form: INJ, PRN, PRN Bradycardia, Start date: 02/08/13 9:05:00, Duration: 30 day, Stop date: 03/10/13 8:04:00 Sodium Chloride 1,000 mL, No Longer Maxian 0.9% IV 1,000 mL Rate: 25 Active 2012 [facility] ast ml/hr, Infuse over: 40 hr, Route: IV, Dosing Weight 84.3 kg, Total Volume: 1,000, Start date: 02/06/13 14:38:00, Duration: 1 day, Stop date: 02/07/13 14:37:00 Lidocaine 15 ml, Route: No Longer [place] Viscous 2% PO, Q3H, Drug Active 2012 [facility] mucous membrane form: SOLN, solution PRN Other -See Comment, Start date: 02/06/13 11:31:00, Duration: 30 day, Stop date: 03/08/13 11:30:00, post banding chest pain(Same as: Xylocaine Viscous) levothyroxine 50 microgram, No Longer [place] 1 tab, Route: Active 2012 [facility] PO, Drug form: TAB, Q6AM, Dosing Weight 84.3, kg, Start date: 02/06/13 6:00:00, Duration: 30 day, Stop date: 03/07/13 6:00:00Take 1 hour before or 2 hours after meal; Enteral feeds may interefere with the absorption of this medication.(S rosey as:Levothroid , Synthroid) Sodium Chloride 250 mL, Rate: Inactive [place] 0.9% IV 250 mL 30 ml/hr, 2012 [facility] Infuse over: 8.3 hr, Route: IV, Dosing Weight 84.3 kg, Total Volume: 250, Start date: 02/05/13 10:43:00, Duration: 12 hr, Stop date: 02/05/13 22:42:00 Evista 60 mg, PO, Active Daily, 2012 Substitution Allowed Evista 60 mg, 1 tab, No Longer [place] Route: PO, 2012 [facility] Drug form: TAB, Daily, Dosing Weight [...] cap, No Longer [place] Route: PO, 2012 [facility] Drug form: CAP, Q8H, Dosing Weight 84.3, kg, Start date: 02/05/13 9:00:00, Duration: 30 day, Stop date: 03/07/13 8:00:00(Same as: Lyrica) Zetia 10 mg, 1 tab, No Longer [place] Route: PO, 2012 [facility] Drug form: TAB, Daily, Dosing Weight 84.3, kg, Start date: 02/05/13 9:00:00, Duration: 30 day, Stop date: 03/06/13 9:00:00(Same as: Zetia) Saline Flush 5 ml, Route: No Longer [place] 0.9% IVP, Drug Active 2012 [facility] Form: INJ, Dosing Weight 79.545, kg, PRN, PRN Line Flush, Start date: 02/05/13 0:57:00, Duration: 30 day, Stop date: 03/06/13 23:56:00(Same as: BD Posiflush) Sodium Chloride 1,000 mL, No Longer [place] 0.9% IV 1,000 mL Rate: 125 2012 [facility] ml/hr, Infuse over: 8 hr, Route: IV, Dosing Weight 79.545 kg, Total Volume: 1,000, Start date: 02/05/13 0:57:00, Duration: 30 day, Stop date: 03/07/13 0:56:00 octreotide 50 microgram, Inactive [place] Route: IVP, 2012 [facility] ONCE, Dosing Weight 79.545, kg, Start date: 02/05/13 0:57:00, Duration: 1 doses or times, Stop date: 02/05/13 0:57:00 pantoprazole 80 mg, Route: Inactive [place] IVP, ONCE, 2012 [facility] Dosing Weight 79.545, kg, for loading dose, Start date: 02/05/13 0:57:00, Duration: 1 doses or times, Stop date: 02/05/13 0:57:00 pantoprazole 80 100 mL, Rate: No Longer [place] mg + Sodium 10 ml/hr, Active 2012 [facility] Chloride 0.9% IV Infuse over: 100 mL 10 hr, Route: IV, Dosing Weight 79.545 kg, Total Volume: 100, Start date: 02/05/13 0:57:00, Duration: 30 day, Stop date: 03/07/13 0:56:00 octreotide 1,250 248.75 mL, No Longer [place] microgram + Rate: 10 Active 2012 [facility] Sodium Chloride ml/hr, Infuse 0.9% IV 248.75 over: 25 hr, mL Route: IV, Dosing Weight 79.545 kg, Total Volume: 250, Start date: 02/05/13 0:57:00, Duration: 30 day, Stop date: 03/07/13 0:56:00, Infuse at 50 mcg/hr. Final concentration = 50 mcg/10 mLInfuse at 50 mcg/hr. Final concentration = 50 mcg/10 mL insulin aspart 10 unit, 0.1 No Longer [place] mL, Route: Active 2012 [facility] SUB-Q, Drug form: SOLN, Sliding Scale, [...] Longer [place] Syringe mL, Route: Active 2012 [facility] IVP, Drug Form: INJ, Dosing Weight 79.545, kg, PRN, PRN Blood Glucose Results, Start date: 02/05/13 0:57:00, Duration: 30 day, Stop date: 03/06/13 23:56:00 glucagon 1 mg, Route: No Longer [place] IM, Drug Active 2012 [facility] form: PDR/INJ, PRN, Dosing Weight 79.545, kg, PRN Blood Glucose Results, Start date: 02/05/13 0:57:00, Duration: 30 day, Stop date: 03/06/13 23:56:00 Protonix 80 mg, Route: Inactive Lilianen IVP, Drug 2012 [facility] form: INJ, ONCE, Start date: 02/04/13 23:43:00, Stop date: 02/04/13 23:43:00For IV push reconstitute with 10 ml 0.9% sodium chloride and push over 2 minutes. (Same as: Protonix) pantoprazole 80 100 mL, Rate: No Longer [place] mg + Sodium 10 ml/hr, Active 2012 [facility] Chloride 0.9% IV Infuse over: 100 mL 10 hr, Route: IVPB, Dosing Weight 79.545 kg, Total Volume: 100, Infuse at 8 mg / hr for 72 hours for GI bleeding, Start date: 02/04/13 23:35:00, Duration: 72 hr, Stop date: 02/07/13 23:34:00 Sodium Chloride 20 mL, Rate: Inactive [place] 0.9% (Bolus) IV 240 ml/hr, 2012 [facility] 20 mL + Infuse over: pantoprazole 80 5 minutes, mg Route: IVP, Dosing Weight 79.545 kg, Total Volume: 20, Start date: 02/04/13 23:35:00, Duration: 1 doses or times, Stop date: 02/04/13 23:39:00 octreotide 1,250 248.75 mL, No Longer Humberto microgram + Rate: 10 Active 2012 [facility] Sodium Chloride ml/hr, Infuse 0.9% IV 248.75 over: 25 hr, mL Route: IV, Dosing Weight 79.545 kg, Total Volume: 250, Start date: 02/04/13 23:34:00, Duration: 30 day, Stop date: 03/06/13 23:33:00 Octreotide 50 microgram, Inactive Hm[place]erto (bolus) 0.5 mL, 2012 [facility] Route: IVP, Drug form: INJ, ONCE, Dosing Weight 79.545, kg, Start date: 02/04/13 23:34:00, Duration: 1 doses or times, Stop date: 02/04/13 23:34:00(Same As: Sandostatin). Refrigerate. Centrum Silver 1 tab, PO, Active oral tablet Daily, 2012 tab, Substitution Allowed, Maintenance, TAB Align 4 mg, Daily, Active Substitution 2012 Allowed pantoprazole 40 mg, Route: Inactive Humberto IVP, ONCE, 2012 [facility] Dosing Weight 79.545, kg, For IV push reconstitute with 10 ml 0.9% sodium chloride and push over at least 3 minutes, Priority: STAT, Start date: 02/04/13 19:51:00, Stop date: 02/04/13 19:51:00 Saline Flush 5 mL, Route: No Longer Humberto 0.9% IVP, Drug Active 2012 [facility] Form: INJ, Dosing Weight 79.545, kg, PRN, PRN Line Flush, Start date: 02/04/13 19:51:00, Duration: 24 hr, Stop date: 02/05/13 19:50:00(Same as: BD Posiflush) sitagliptin 50 mg, 2 tab, Inactive Rahim Route: PO, 2012 [facility] Drug form: TAB, BID, Dosing Weight 84.091, kg, Start date: 01/27/13 9:00:00, Duration: 30 day, Stop date: 02/25/13 17:00:00Same as Chinia metFORmin 1000 1,000 mg, 2 Inactive Rahim mg oral tablet tab, Route: 2012 [facility] PO, Drug form: TAB, BID, Dosing Weight [...] IV 1,000 mL Rate: 25 Active 2012 [facility] ast ml/hr, Infuse over: 40 hr, Route: IV, Dosing Weight 84.091 kg, Total Volume: 1,000, Start date: 01/26/13 9:40:00, Duration: 1 day, Stop date: 01/27/13 9:39:00 GoLYTELY 4,000 ml, Inactive Jasmeet Route: PO, 2012 [facility] Drug Form: PDR/REC, Dosing Weight 84.091, kg, ONCE, Start date: 01/25/13 15:00:00, Duration: 1 doses or times, Stop date: 01/25/13 15:00:00(poly ethylene glycol electrolyte solution 4 Liter bottle) (Same as: Golytely, Colyte) NS IV, 30 ml/hr, No Longer Jasmeet PRN, PRN Active 2012 [facility] Blood Transfusion, Start date: 01/25/13 11:50:00, Duration: 1, 250 ml Vitamin K1 10 mg, 1 mL, Inactive Jasmeet Route: SUB-Q, 2012 [facility] Drug form: INJ, ONCE, Dosing Weight 84.091, kg, Start date: 01/25/13 10:31:00, Duration: 1 doses or times, Stop date: 01/25/13 10:31:00(Same as: Aqua-Mephyton , Vitamin K) Zetia 10 mg, 1 tab, No Longer [place] Route: PO, Active 2012 [facility] Drug form: TAB, Daily, Dosing Weight 79.545, kg, Start date: 01/24/13 9:00:00, Duration: 30 day, Stop date: 02/22/13 9:00:00(Same as: Zetia) Evista 60 mg, 1 tab, No Longer [place] Route: PO, Active 2012 [facility] Drug form: TAB, Daily, Dosing Weight 79.545, kg, Start date: 01/24/13 9:00:00, Duration: 30 day, Stop date: 02/22/13 9:00:00(Same as:Evista) "Do Not Crush" propranolol 40 mg, 1 tab, No Longer [place] Route: PO, Active 2012 [facility] Drug form: TAB, BID, Dosing Weight 79.545, kg, Start date: 01/24/13 9:00:00, Duration: 30 day, Stop date: 02/22/13 17:00:00Give with food. (Same as: Inderal) influenza virus 0.5 mL, Inactive SYSTEM vaccine, Route: IM, 2012 [facility] inactivated Drug Form: SUSP, Start date: 01/24/13 9:00:00, Stop date: 01/24/13 9:00:00 Protonix 40 mg, Route: No Longer Rahim IV, Drug Active 2012 [facility] form: INJ, Q12H, Dosing Weight 79.545, kg, Start date: 01/24/13 9:00:00, Duration: 30 day, Stop date: 02/22/13 21:00:00For IV push reconstitute with 10 ml 0.9% sodium chloride and push over 2 minutes. (Same as: Protonix) magnesium 2 gm, 50 mL, Inactive [place] MH sulfate 2 gm in Route: IV, 2012 [facility] Water 50 ml Drug form: INJ, ONCE, Dosing Weight 84.091, kg, Priority: Routine, Start date: 01/24/13 6:37:00, Stop date: 01/24/13 6:37:00 nitroglycerin 0.4 mg, 1 No Longer Rahim 01/24/ MH 0.4 mg tab, Route: Active 2012 [facility] sublingual SL, Drug tablet form: TAB, [...] MH oral capsule PO, TID, [address] [facility] [address] cap, Substitution Allowed, CAP Lovaza oral 2,000 mg, 2 Active MH capsule cap, PO, BID, 2012 120 cap, Substitution Allowed, Maintenance, CAP Lidoderm 5% Substitution Active topical film Allowed 2012 (patch) levothyroxine 50 50 microgram, Active 01/24/ H mcg (0.05 mg) 1 tab, PO, [address] [facility] [address] oral tablet Daily, 30 tab, Substitution [...] cap, Active MH oral delayed PO, 2012 [facility] release capsule Substitution Allowed, CAP Sodium Chloride 250 mL, Rate: No Longer Grijalva 10/05/ MH 0.9% (titrate) [employer] for Active 2012 [facility] 250 mL use with blood product administratio n., Dosing Weight 79.545, kg, Route: IV, Total Volume: 250, Priority: Routine, Duration: 30 day, Stop date: 02/22/13 22:44:00, Replace Every: 24 hr Sodium Chloride 250 mL, Rate: No Longer Grijal[place] 10/05/ MH 0.9% (titrate) call taker for Active 2012 [facility] 250 mL use with blood product administratio n, Dosing Weight 79.545, kg, Route: IV, Total Volume: 250, Duration: 30 day, Stop date: 02/22/13 20:51:00, Replace Every: 24 hr Allergies, Adverse Reactions, Alerts No Known Medication Allergies Immunizations Immunization Date Site Status Last Updated Comments Sour ce Given influenza virus Right completed John DANIEL [place] vaccine, 7 Deltoid [facility] inactivated Center,M [facility] pneumococcal Left completed Juan C Giles s 13-valent 7 [facility] Right completed Seferino DANIEL [place] vaccine, 3 Deltoid [facility] inactivated Center,M H OPID [facility] [...] PANEL Potassium 3.3 3.5 - 5.1 01/11 [facility] CHEM PANEL Chloride Lvl 103 95 - 109 01/11 [facility] CHEM PANEL Sodium Lvl 142 135 - 145 01/11 [facility] CHEM PANEL Calcium Lvl 8.3 8.5 - 10.5 01/11 [facility] CHEM PANEL AGAP 12.3 10.0 - 01/11 . [facility] CHEM PANEL CO2 30 24 - 32 01/11 [facility] CHEM PANEL Glucose Lvl 136 70 - 99 01/11 [facility] CHEM PANEL BUN 7 7 - 22 01/11 [facility] CHEM PANEL Creatinine 0.56 0.50 - 01/11 [facility] [facility] 1.40 [facility] HEMATOLOGY PT 16.1 12.0 - 01/11 [place] 14.7 /2016 [facility] HEMATOLOGY INR 1.26 0.85 - 01/11 [place] 1.17 [facility] CHEM PANEL Phosphorus 3.0 2.5 - 4.5 01/11 [facility] CHEM PANEL Magnesium 1.4 1.8 - 2.4 01/11 [facility] HEMATOLOGY Platelet 115 133 - 450 01/11 [facility] HEMATOLOGY MPV 9.2 7.4 - 10.4 01/11 [facility] HEMATOLOGY RDW 14.7 11.5 - 01/11 [place] 14.5 [facility] HEMATOLOGY MCHC 33.9 32.0 - 01/11 [place] 36.0 /2016 [facility] HEMATOLOGY MCH 31.6 27.0 - 01/11 [place] 31.0 [facility] HEMATOLOGY MCV 93.3 80.0 - 01/11 [place] 98.0 [facility] HEMATOLOGY Hgb 10.6 12.0 - 01/11 [place] 16.0 [facility] HEMATOLOGY WBC 6.9 3.7 - 10.4 01/11 [facility] HEMATOLOGY Hct 31.2 36.0 - 01/11 [place] 48.0 [facility] HEMATOLOGY RBC 3.34 4.20 - 01/11 [place] 5.40 [facility] HEMATOLOGY Segs 56.2 45.0 - 01/11 [place] 75.0 /2017 [facility] HEMATOLOGY Lymphocytes 26.0 20.0 - 01/11 [place] 40.0 [facility] HEMATOLOGY Eosinophils 0.2 0.0 - 0.5 01/[place] # /2016 [facility] HEMATOLOGY Lymphocytes 1.8 1.0 - 5.5 01/11 [place] # /2016 [facility] HEMATOLOGY Monocytes # 1.0 0.0 - 0.8 01/[place] /2016 [facility] HEMATOLOGY Basophils 0.7 0.0 - 1.0 01/11 [facility] HEMATOLOGY Monocytes 14.1 2.0 - 12.0 01/11 [facility] HEMATOLOGY Eosinophils 3.0 0.0 - 4.0 01/11 [facility] HEMATOLOGY Segs-Bands # 3.9 1.5 - 8.1 01/11 [facility] CHEM PANEL Phosphorus 2.4 2.5 - 4.5 01/10 [facility] CHEM PANEL Magnesium 1.8 1.8 - 2.4 01/10 [facility] CHEM PANEL eGFR 63 01/10 [facility] Comment: The Medical eGFR is Center [...] PANEL CO2 27 24 - 32 01/10 [facility] CHEM PANEL Chloride Lvl 99 95 - 109 01/10 [facility] CHEM PANEL Calcium Lvl 8.7 8.5 - 10.5 01/10 [facility] CHEM PANEL AGAP 13.3 10.0 - 01/10 20.0 [facility] CHEM PANEL Glucose Lvl 152 70 - 99 01/10 [facility] CHEM PANEL Sodium Lvl 136 135 - 145 01/10 [facility] CHEM PANEL Creatinine 0.91 0.50 - 01/10 [facility] 1.40 [facility] CHEM PANEL Potassium 3.3 3.5 - 5.1 01/10 [facility] CHEM PANEL BUN 8 7 - 22 01/10 [facility] HEMATOLOGY MCH 31.9 27.0 - 01/10 [place] 31.0 [facility] HEMATOLOGY Platelet 129 133 - 450 01/10 [facility] HEMATOLOGY MPV 9.4 7.4 - 10.4 01/10 [facility] HEMATOLOGY MCHC 34.5 32.0 - 01/10 [place] 36.0 /2016 [facility] HEMATOLOGY RDW 14.8 11.5 - 01/10 [place] 14.5 [facility] HEMATOLOGY Hct 35.1 36.0 - 01/10 [place] 48.0 /2016 [facility] HEMATOLOGY WBC 7.6 3.7 - 10.4 01/10 [facility] HEMATOLOGY RBC 3.80 4.20 - 01/10 [place] 5.40 /2016 [facility] HEMATOLOGY Hgb 12.1 12.0 - 01/10 [place] 16.0 [facility] HEMATOLOGY MCV 92.5 80.0 - 01/10 [place] 98.0 /2016 [facility] HEMATOLOGY INR 1.19 0.85 - 01/10 [place] 1.17 [facility] HEMATOLOGY PT 15.4 12.0 - 01/10 [place] 14.7 /2016 [facility] HEMATOLOGY Lymphocytes 27.4 20.0 - 01/10 [place] 40.0 [facility] HEMATOLOGY Monocytes 13.0 2.0 - 12.0 01/10 [facility] HEMATOLOGY Eosinophils 3.3 0.0 - 4.0 01/10 [facility] HEMATOLOGY Segs 55.8 45.0 - 01/10 [place] 75.0 [facility] HEMATOLOGY Basophils 0.5 0.0 - 1.0 01/10 [facility] HEMATOLOGY Lymphocytes 2.1 1.0 - 5.5 01/10 [place] # /2016 [facility] HEMATOLOGY Monocytes # 1.0 0.0 - 0.8 01/10 [place] [facility] HEMATOLOGY Eosinophils 0.3 0.0 - 0.5 01/10 [place] # /2016 [facility] HEMATOLOGY Segs-Bands # 4.2 1.5 - 8.1 01/10 [place] [facility] CHEM PANEL Phosphorus 2.5 2.5 - 4.5 01/09 [facility] CHEM PANEL Magnesium 1.6 1.8 - 2.4 01/09 [facility] CHEM PANEL eGFR 89 01/09 Result [...] PANEL BUN 8 7 - 22 01/09 [facility] CHEM PANEL Sodium Lvl 135 135 - 145 01/09 [facility] CHEM PANEL Creatinine 0.62 0.50 - 01/09 [facility] 1.40 [facility] CHEM PANEL Chloride Lvl 98 95 - 109 01/09 [facility] CHEM PANEL CO2 27 24 - 32 01/09 [facility] CHEM PANEL Calcium Lvl 8.5 8.5 - 10.5 01/09 [facility] CHEM PANEL Potassium 3.6 3.5 - 5.1 01/09 Result [facility] Comment: [facility] Slightly Hemolyzed. CHEM PANEL Glucose Lvl 205 70 - 99 01/09 [facility] CHEM PANEL AGAP 13.6 10.0 - 01/09 [facility] 20.0 [facility] HEMATOLOGY Basophils # 0.1 0.0 - 0.2 01/09 [facility] HEMATOLOGY Eosinophils 0.3 0.0 - 0.5 01/09 [place] # [facility] HEMATOLOGY Monocytes # 1.0 0.0 - 0.8 01/09 [facility] HEMATOLOGY Lymphocytes 2.0 1.0 - 5.5 01/09 [place] # /2016 [facility] HEMATOLOGY Eosinophils 3.8 0.0 - 4.0 01/09 a s /2016 [facility] HEMATOLOGY Monocytes 13.6 2.0 - 12.0 01/09 [facility] HEMATOLOGY Lymphocytes 27.2 20.0 - 01/09 [place] 40.0 /2016 [facility] HEMATOLOGY Segs-Bands # 4.0 1.5 - 8.1 01/09 [facility] HEMATOLOGY Segs 54.7 45.0 - 01/09 [place] 75.0 [facility] HEMATOLOGY Basophils 0.7 0.0 - 1.0 01/09 [facility] HEMATOLOGY PT 15.3 12.0 - 01/09 [place] 14.7 [facility] HEMATOLOGY INR 1.18 0.85 - 01/09 [place] 1.17 [facility] HEMATOLOGY Platelet 119 133 - 450 01/09 [facility] HEMATOLOGY RDW 14.7 11.5 - 01/09 [place] 14.5 [facility] HEMATOLOGY MPV 9.6 7.4 - 10.4 01/09 [facility] HEMATOLOGY MCHC 34.6 32.0 - 01/09 [place] 36.0 [facility] HEMATOLOGY MCV 92.1 80.0 - 01/09 [place] 98.0 [facility] HEMATOLOGY Hct 33.2 36.0 - 01/09 [place] 48.0 [facility] HEMATOLOGY MCH 31.9 27.0 - 01/09 [place] 31.0 [facility] HEMATOLOGY RBC 3.60 4.20 - 01/09 [place] 5.40 /2016 [facility] HEMATOLOGY Hgb 11.5 12.0 - 01/09 [place] 16.0 [facility] HEMATOLOGY WBC 7.2 3.7 - 10.4 01/09 [facility] CHEM PANEL Total 6.2 6.4 - 8.4 01/09 [facility] Protein [facility] CHEM PANEL Albumin Lvl 2.7 3.5 - 5.0 01/09 s [facility] CHEM PANEL ALT 24 0 - 65 01/09 [facility] CHEM PANEL AST 40 0 - 37 01/09 [facility] CHEM PANEL Alk Phos 102 39 - 136 01/09 [facility] CHEM PANEL Bili Total 1.8 0.2 - 1.3 01/[address] [place] [address] CHEM PANEL Bili Direct 0.4 0.0 - 0.3 01/09 [facility] CHEM PANEL Globulin 3.5 2.7 - 4.2 01/[address] CHEM PANEL A/G Ratio 0.8 0.7 - 1.6 01/[address] CHEM PANEL Bili 1.4 0.0 - 1.0 01/09 [facility] Indirect [facility] HEMATOLOGY Basophils # 0.1 0.0 - 0.2 01/09 [facility] s [facility] HEMATOLOGY Pos CO Value 0.400 01/09 [facility]2016 [facility] HEMATOLOGY Heparin Negative 1 Negative 01/09 Result [facility] Ab(AXEL) (01/08/17 8:08 PM) Comment: [facility] Medical assay detects Center heparin antibodies of IgG isotype. Antibodies of other isotypes have been reported to cause heparin-induc ed thrombocytope izabela. Therefore, if there is a strong clinical suspicion of HIT, additional study with a serotonin release assay is recommented. HEMATOLOGY Pat Od Value 0.082 01/09 [facility] CHEM PANEL Vitamin D, 28.6 30.0 - 01/07 [facility] 25-OH, Total 100.0 [facility] PARATHYROI PTH Intact 33.4 11.1 - 01/07 [facility] D PROFILE 79.5 [facility] CHEM PANEL B/C Ratio 17 6 - 25 01/[address] CHEM PANEL A/G Ratio 0.8 0.7 - 1.6 01/[address] CHEM PANEL Globulin 3.5 2.7 - 4.2 01/[address] CHEM PANEL ALT 32 0 - 65 01/[address] CHEM PANEL Alk Phos 126 39 - 136 01/[address] CHEM PANEL AST 58 0 - 37 01/[address] CHEM PANEL Total 6.3 6.4 - 8.4 01/05 [facility] Protein 2016 [facility] CHEM PANEL Albumin Lvl 2.8 3.5 - 5.0 01/05 [facility] CHEM PANEL Bili Total 1.6 0.2 - 1.3 01/[address] HEMATOLOGY Basophils # 0.1 0.0 - 0.2 01/05 a s [facility] SPECIAL Hgb A1C 8.7 <=5.6 % 01/05 [facility] CHEMISTRY /2016 [facility] HEMATOLOGY PTT 30.9 22.9 - 01/04 [place] 35.8 [facility] CHEM PANEL Bili Direct 0.4 0.0 - 0.3 01/04 a s [facility] CHEM PANEL Bili Total 1.6 0.2 - 1.3 01/04 [facility] CHEM PANEL A/G Ratio 0.8 0.7 - 1.6 01/04 [facility] CHEM PANEL Globulin 4.0 2.7 - 4.2 01/04 [facility] CHEM PANEL Bili 1.2 0.0 - 1.0 01/04 Indirect [facility] CHEM PANEL Total 7.4 6.4 - 8.4 01/04 Protein [facility] CHEM PANEL Alk Phos 135 39 - 136 01/04 [facility] CHEM PANEL Albumin Lvl 3.4 3.5 - 5.0 01/04 a s [facility] CHEM PANEL ALT 39 0 - 65 01/04 [facility] CHEM PANEL AST 58 0 - 37 01/04 [facility] BLOOD BANK Antibody Negative 01/04 [facility] RESULTS Scrn (01/04/17 5:12 AM) [facility] BLOOD BANK ABO/Rh O POS 01/04 [facility] RESULTS [facility] HEMATOLOGY K-time Rapid 1.0 0.6 - 2.3 01/04 [facility] HEMATOLOGY ACT (TEG) 97 86 - 118 01/04 [facility] HEMATOLOGY R-time Rapid 0.5 0.4 - 0.7 01/04 [facility] HEMATOLOGY [place] 0.3 01/04 [facility] HEMATOLOGY Angle Rapid 78 64 - 80 01/04 [facility] HEMATOLOGY Max 62 52 - 71 01/04 [facility] Amplitude [facility] HEMATOLOGY Estimated % 0.0 0.0 - 7.5 01/04 [place] [facility] HEMATOLOGY G-value 8.2 5.0 - 11.6 01/04 [facility] BEDSIDE Glucose POC 221 70 - 99 02/10 [place] <sup>1</sup>I GLUCOSE nterpretive [facility] TESTING Data: Upper Reportable Limit: 200 mg/dL. CHEMISTRY AGAP 12.3 10.0 - 02/10 Normal MH 20.0 [facility] CHEMISTRY eGFR 93 02/10 <sup>5</sup>R MH esult [facility] Comment: The eGFR is calculated using [...] 0.6 0.5 - 1.4 02/10 Normal l [facility] CHEMISTRY BUN 2 - 02/10 LOW MH [facility] CHEMISTRY Glucose Lvl 179 70 - 99 02/10 [place] <sup>7</sup>I nterpretive [facility] Data: Adult reference range values reflect the clinical guidelines
of the [place] [employer]. CHEMISTRY Calcium Lvl 8.1 8.5 - 10.5 02/10 LOW MH [facility] CHEMISTRY CO2 29 24 - 32 02/10 Normal [facility] CHEMISTRY Sodium Lvl 149 135 - 145 02/10 [place] MH [facility] CHEMISTRY Chloride Lvl 111 95 - 109 02/10 [place] MH [facility] CHEMISTRY Potassium 3.3 3.5 - 5.1 02/10 LOW Lvl [facility] HEMATOLOGY WBC X 10x3 7.3 3.7 - 10.4 02/10 Normal [facility] HEMATOLOGY RBC X 10x6 3.91 4.20 - 10 LOW MH 5.40 /2012 [facility] HEMATOLOGY Hgb 10.4 12.0 - 10/22 LOW MH 16.0 /2012 [facility] HEMATOLOGY Hct 32.9 36.0 - 02/10 LOW MH 48.0 /2012 [facility] HEMATOLOGY MPV 8.5 7.4 - 10.4 02/10 Normal MH /2012 [facility] HEMATOLOGY MCHC 31.6 32.0 - 02/10 LOW MH 36.0 /2012 [facility] HEMATOLOGY RDW 19.2 11.5 - 02/10 [place] 14.5 /2012 [facility] HEMATOLOGY MCV 84.1 81.0 - 02/10 Normal MH 99.0 /2012 [facility] HEMATOLOGY MCH 26.6 27.0 - 10 LOW MH 31.0 /2012 [facility] HEMATOLOGY Platelet 152 133 - 450 02/10 Normal MH /2012 [facility] HEMATOLOGY Basophils # 0.0 0.0 - 0.2 02/10 Normal MH /2012 [facility] HEMATOLOGY Eosinophils 0.2 0.0 - 0.5 02/10 Normal MH # /2012 [facility] HEMATOLOGY Basophils 0.3 0.0 - 1.0 02/10 Normal MH /2012 [facility] HEMATOLOGY Eosinophils 3.1 0.0 - 4.0 02/10 Normal MH /2012 [facility] HEMATOLOGY Monocytes 10.0 2.0 - 12.0 02/10 Normal MH /2012 [facility] HEMATOLOGY Lymphocytes 41.5 20.0 - 02/10 [place] MH 40.0 /2012 [facility] HEMATOLOGY Segs-Bands # 3.3 1.5 - 8.1 02/10 Normal MH [facility] HEMATOLOGY Monocytes # 0.7 0.0 - 0.8 02/10 Normal MH /2012 [facility] HEMATOLOGY Lymphocytes 3.0 1.0 - 5.5 02/10 Normal MH # /2012 [facility] HEMATOLOGY Segs 45.1 45.0 - 02/10 Normal MH 75.0 /2012 [facility] BEDSIDE Glucose POC 228 70 - 99 02/10 [place] <sup>2</sup>I GLUCOSE /2012 nterpretive [facility] TESTING Data: Upper Reportable Limit: 200 mg/dL. BEDSIDE Glucose POC 326 70 - 99 02/09 [place] <sup>3</sup>I GLUCOSE /2012 nterpretive [facility] TESTING Data: Upper Reportable Limit: 200 mg/dL. BEDSIDE Gluc POC Notify 02/09 GLUCOSE Comment 1 RN/ /2012 [facility] TESTING BEDSIDE Gluc POC Notify 02/09 GLUCOSE Comment 1 RN/ /2012 [facility] TESTING HEMATOLOGY Hgb 11.0 12.0 - 02/09 LOW MH 16.0 /2012 [facility] HEMATOLOGY Hct 34.6 36.0 - 02/09 LOW MH 48.0 /2012 [facility] BEDSIDE Gluc POC Notify 02/09 GLUCOSE Comment 1 RN/MD /2012 [facility] TESTING HEMATOLOGY Hgb 10.2 12.0 - 02/09 LOW MH 16.0 /2012 [facility] HEMATOLOGY Hct 32.1 36.0 - 02/09 LOW MH 48.0 /2012 [facility] HEMATOLOGY Platelet 131 133 - 450 10 LOW MH /2012 [facility] HEMATOLOGY RDW 18.8 11.5 - 10 [place] MH 14. [facility] HEMATOLOGY MPV 8.8 7.4 - 10.4 10 Normal MH /2012 [facility] HEMATOLOGY MCV 83.0 81.0 - 10 Normal MH 99.0 /2012 [facility] HEMATOLOGY MCH 26.4 27.0 - 02/08 LOW MH 31.0 [facility] HEMATOLOGY MCHC 31.8 32.0 - 02/08 LOW MH 36.0 /2012 [facility] HEMATOLOGY RBC X 10x6 3.97 4.20 - 02/08 LOW MH 5.40 [facility] HEMATOLOGY WBC X 10x3 6.2 3.7 - 10.4 10 Normal MH /2012 [facility] HEMATOLOGY Platelet 133 133 - 450 10 Normal MH /2012 [facility] HEMATOLOGY MPV 8.7 7.4 - 10.4 10 Normal MH /2012 [facility] HEMATOLOGY RBC X 10x6 4.20 4.20 - 02/07 Normal MH 5.40 [facility] HEMATOLOGY WBC X 10x3 6.5 3.7 - 10.4 02/07 Normal MH /2012 [facility] HEMATOLOGY MCV 84.7 81.0 - 10 Normal MH 99.0 /2012 [facility] HEMATOLOGY MCH 26.7 27.0 - 10 LOW MH 31.0 [facility] HEMATOLOGY RDW 19.1 11.5 - 02/07 [place] MH 14. [facility] HEMATOLOGY MCHC 31.5 32.0 - 02/07 LOW MH 36.0 [facility] BLOOD BANK RBC product Product available 4 02/05 Normal <sup> 4</sup>R RESULTS (02/05/2013 08:40:00) esult [facility] Comment: 02/05/2013 08:57 [id number]
Spoke to Gertrudis 02/05/2013 08:57 ttn BLOOD BANK ABO/Rh O POS 02/05 MH RESULTS /2012 [facility] BLOOD BANK Antibody Negative 02/05 Normal RESULTS Scrn (02/04/2013 19:40:00) /2012 [facility] CHEMISTRY Phosphorus 2.7 2.5 - 4.5 02/05 Normal [facility] CHEMISTRY Magnesium 1.5 1.8 - 2.4 02/05 LOW Lvl /2012 [facility] CHEMISTRY eGFR 93 02/05 <sup>6</sup>R esult [...] Total 0.6 0.2 - 1.3 02/05 Normal [facility] CHEMISTRY ASPARTATE 49 0 - 37 02/05 [facility] TRANSAMINASE [facility] CHEMISTRY Alk Phos 141 39 - 136 02/05 HI MH [facility] CHEMISTRY Albumin Lvl 3.1 3.5 - 5.0 02/05 LOW [facility] CHEMISTRY ALANINE 30 0 - 65 02/05 Normal AMINOTRANSFE [facility] RASE CHEMISTRY Calcium Lvl 8.0 8.5 - 10.5 02/05 LOW [facility] CHEMISTRY Total 7.2 6.4 - 8.4 02/05 Normal Protein [facility] CHEMISTRY CO2 27 24 - 32 02/05 Normal [facility] CHEMISTRY Glucose Lvl 160 70 - 99 02/05 [place] <sup>8</sup>I nterpretive [facility] Data: Adult reference range values reflect the clinical guidelines
of the [place] [employer]. CHEMISTRY BUN 5 7 - [...] - 02/05 Normal <sup>10</sup> 35.8 /2013 Interpretive [facility] Data: Heparin Therapeutic Range: 57 - 92 Seconds HEMATOLOGY PROTIME 15.0 12.0 - 02/05 [place] 14.7 /2012 [facility] HEMATOLOGY INR 1.19 0.85 - 02/05 [place] <sup>9</sup>I 1.17 nterpretive [facility] Data: RECOMMENDED RANGES FOR PROTIME INR:
2.0-3.0 for most medical and surgical thromboemboli c states.
2.5-3.5 for artificial heart valves and recurrent embolism.<br/ >
INR SHOULD BE USED ONLY FOR PATIENTS ON STABLE ANTICOAGULANT THERAPY. URINALYSIS UA <=1.0 0.1 - 1.0 02/05 Urobilinogen mg/dL [facility] URINALYSIS UA Color Ltyellow 02/05 [facility] URINALYSIS UA Bili Negative Negative 02/05 *NA* [facility] (02/04/2013 19:30:00) URINALYSIS UA Ketones Negative Negative 02/05 mg/dL [facility] URINALYSIS UA Blood Moderate Negative 02/05 ABN MH *ABN* [facility] (02/04/2013 19:30:00) URINALYSIS UA Leuk Est Negative Negative 02/05 Normal (02/04/2013 19:30:00) [facility] URINALYSIS UA Glucose 50 mg/dL Negative 02/05 [facility] URINALYSIS UA Sq Epi Occasional Few 02/05 MH /LPF [facility] URINALYSIS UA Nitrite Negative Negative 02/05 Normal (02/04/2013 19:30:00) [facility] URINALYSIS UA Turbidity Slight Clear 02/05 ABN *ABN* [facility] (02/04/2013 19:30:00) URINALYSIS UA pH 6.0 5.0 - 8.0 02/05 Normal [facility] URINALYSIS UA Spec Grav 1.003 <=1.030 02/05 Normal [facility] URINALYSIS UA Protein Negative Negative 02/05 Normal mg/dL [facility] URINALYSIS UA Mucus Few /LPF None Seen 02/05 [facility] URINALYSIS UA Bacteria Moderate None Seen 02/05 ABN /HPF [facility] URINALYSIS UA CaOx Sofie Occasional None Seen 02/05 /HPF [facility] URINALYSIS UA WBC 1 0 - 5 02/05 Normal [facility] URINALYSIS UA RBC 2 0 - 2 02/05 Normal [facility] BEDSIDE Gluc POC Notify 01/27 GLUCOSE Comment 2 RN/ /2012 [facility] TESTING BEDSIDE Glucose POC 291 70 - 99 01/27 [place] <sup>1</sup>I GLUCOSE /2012 nterpretive [facility] TESTING Data: Upper Reportable Limit: 200 mg/dL. BEDSIDE Gluc POC Assess 01/27 GLUCOSE Comment 1 patient /2012 [facility] TESTING BEDSIDE Gluc POC Notify 01/27 GLUCOSE Comment 2 RN/MD /2012 [facility] TESTING BEDSIDE Gluc POC Assess 01/27 GLUCOSE Comment 1 patient /2012 [facility] TESTING BEDSIDE Glucose POC 236 70 - 99 10 [place] <sup>2</sup>I MH GLUCOSE /2012 nterpretive [facility] TESTING Data: Upper Reportable Limit: 200 mg/dL. HEMATOLOGY RDW 20.0 11.5 - 10 HI MH 14.5 /2012 [facility] HEMATOLOGY MPV 8.5 7.4 - 10.4 10/ Normal MH /2012 [facility] HEMATOLOGY Platelet 148 133 - 450 10 Normal MH /2012 [facility] HEMATOLOGY WBC X 10x3 5.7 3.7 - 10.4 10 Normal MH /2012 [facility] HEMATOLOGY Hct 30.5 36.0 - 10 LOW MH 48.0 /2012 [facility] HEMATOLOGY Hgb 9.6 12.0 - 10 LOW MH 16.0 /2012 [facility] HEMATOLOGY RBC X 10x6 3.60 4.20 - 10 LOW MH 5.40 /2012 [facility] HEMATOLOGY MCH 26.6 27.0 - 1008 LOW MH 31.0 /2012 [facility] HEMATOLOGY MCV 84.5 81.0 - 1008 Normal MH 99.0 /2012 [facility] HEMATOLOGY MCHC 31.5 32.0 - 1008 LOW MH 36.0 /2012 [facility] HEMATOLOGY Segs 53.6 45.0 - 10/08 Normal MH 75.0 /2012 [facility] HEMATOLOGY Lymphocytes 32.8 20.0 - 1008 Normal MH 40.0 /2012 [facility] HEMATOLOGY Monocytes 11.3 2.0 - 12.0 10/ Normal MH /2012 [facility] HEMATOLOGY Eosinophils 1.9 0.0 - 4.0 10/ Normal MH /2012 [facility] HEMATOLOGY Basophils 0.4 0.0 - 1.0 10/08 Normal MH /2012 [facility] HEMATOLOGY Segs-Bands # 3.0 1.5 - 8.1 10/ Normal MH /2012 [facility] HEMATOLOGY Lymphocytes 1.9 1.0 - 5.5 10/08 Normal MH # /2012 [facility] HEMATOLOGY Monocytes # 0.6 0.0 - 0.8 01/27 Normal MH /2012 [facility] HEMATOLOGY Eosinophils 0.1 0.0 - 0.5 / Normal MH # /2012 [facility] HEMATOLOGY Basophils # 0.0 0.0 - 0.2 10/08 Normal MH /2012 [facility] BEDSIDE Gluc POC Assess 01/27 GLUCOSE Comment 1 patient /2012 [facility] TESTING BEDSIDE Glucose POC 233 70 - 99 01/27 [place] <sup>3</sup>I GLUCOSE /2012 nterpretive [facility] TESTING Data: Upper Reportable Limit: 200 mg/dL. BEDSIDE Gluc POC Notify 01/27 GLUCOSE Comment 2 RN/ /2012 [facility] TESTING HEMATOLOGY Monocytes # 0.7 0.0 - 0.8 01/26 Normal MH /2012 [facility] HEMATOLOGY Lymphocytes 1.8 1.0 - 5.5 10 Normal MH # /2012 [facility] HEMATOLOGY Eosinophils 2.3 0.0 - 4.0 01/26 Normal /2012 [facility] HEMATOLOGY Basophils 0.2 0.0 - 1.0 01/26 Normal /2012 [facility] HEMATOLOGY Segs-Bands # 2.2 1.5 - 8.1 01/26 Normal /2012 [facility] HEMATOLOGY Segs 46.1 45.0 - 01/26 Normal MH 75.0 [facility] HEMATOLOGY Lymphocytes 37.9 20.0 - 01/26 Normal MH 40.0 [facility] HEMATOLOGY Monocytes 13.5 2.0 - 12.0 01/26 HI MH /2012 [facility] HEMATOLOGY Basophils # 0.0 0.0 - 0.2 01/26 Normal /2012 [facility] HEMATOLOGY Eosinophils 0.1 0.0 - 0.5 01/26 Normal MH # /2012 [facility] HEMATOLOGY PROTIME 16.5 12.0 - 01/26 [place] 14.7 /2012 [facility] HEMATOLOGY INR 1.35 0.85 - 01/26 HI <sup>10</sup> MH 1.17 /2012 Interpretive [facility] Data: RECOMMENDED RANGES FOR PROTIME INR:
2.0-3.0 for most medical and surgical thromboemboli c states.
2.5-3.5 for artificial heart valves and recurrent embolism.<br/ >
INR SHOULD BE USED ONLY FOR PATIENTS ON STABLE ANTICOAGULANT THERAPY. HEMATOLOGY Hct 28.5 36.0 - 01/26 LOW MH 48.0 /2012 [facility] HEMATOLOGY MCV 85.8 81.0 - 10 Normal 99.0 /2012 [facility] HEMATOLOGY MCH 27.2 27.0 - 01/26 Normal MH 31.0 /2012 [facility] HEMATOLOGY MCHC 31.7 32.0 - 10 LOW MH 36.0 /2012 [facility] HEMATOLOGY Hgb 9.0 12.0 - 10 LOW 16.0 /2012 [facility] HEMATOLOGY Platelet 133 133 - 450 10/07 Normal MH /2012 [facility] HEMATOLOGY MPV 8.9 7.4 - 10.4 10/ Normal MH /2012 [facility] HEMATOLOGY RDW 20.0 11.5 - 10/07 HI MH 14.5 /2012 [facility] HEMATOLOGY WBC X 10x3 4.9 3.7 - 10.4 10/07 Normal MH /2012 [facility] HEMATOLOGY RBC X 10x6 3.32 4.20 - 10/07 LOW MH 5.40 /2012 [facility] TUMOR AFP 3.0 0.0 - 11.0 10/07 Normal MH MARKERS /2012 [facility] HEMATOLOGY WBC X 10x3 5.9 3.7 - 10.4 10/ Normal MH /2012 [facility] HEMATOLOGY MCV 85.3 81.0 - 10/07 Normal MH 99.0 /2012 [facility] HEMATOLOGY Platelet 153 133 - 450 10/ Normal MH /2012 [facility] HEMATOLOGY RDW 19.6 11.5 - 10/07 HI MH 14. /2012 [facility] HEMATOLOGY Hgb 9.5 12.0 - 1007 LOW MH 16.0 /2012 [facility] HEMATOLOGY RBC X 10x6 3.55 4.20 - 10/07 LOW MH 5.40 /2012 [facility] HEMATOLOGY Hct 30.3 36.0 - 10/07 LOW MH 48.0 /2012 [facility] HEMATOLOGY MPV 8.9 7.4 - 10.4 10 Normal MH /2012 [facility] HEMATOLOGY MCHC 31.4 32.0 - 10/07 LOW MH 36.0 /2012 [facility] HEMATOLOGY MCH 26.8 27.0 - 10/07 LOW MH 31.0 /2012 [facility] HEMATOLOGY Basophils # 0.0 0.0 - 0.2 10/ Normal MH /2012 [facility] HEMATOLOGY Monocytes # 0.7 0.0 - 0.8 10/07 Normal MH /2012 [facility] HEMATOLOGY Eosinophils 0.1 0.0 - 0.5 10/07 Normal MH # /2012 [facility] HEMATOLOGY Monocytes 11.7 2.0 - 12.0 10/07 Normal MH /2012 [facility] HEMATOLOGY Eosinophils 2.4 0.0 - 4.0 10/07 Normal MH /2012 [facility] HEMATOLOGY Basophils 0.6 0.0 - 1.0 10/07 Normal MH /2012 [facility] HEMATOLOGY Segs-Bands # 2.6 1.5 - 8.1 10/ Normal MH /2012 [facility] HEMATOLOGY Lymphocytes 2.4 1.0 - 5.5 10/07 Normal MH # /2012 [facility] HEMATOLOGY Lymphocytes 41.2 20.0 - 01/26 HI MH 40.0 [facility] HEMATOLOGY Segs 44.1 45.0 - 01/26 LOW MH 75.0 [facility] IMMUNOLOGY Hep B Core Negative Negative 01/25 MH Ab *NA* /2012 [facility] (01/25/2013 09:31:00) IMMUNOLOGY Hep C Ab Negative Negative 01/25 MH *NA* [facility] (01/25/2013 09:31:00) IMMUNOLOGY Hep Bs Ag Negative Negative 01/25 MH *NA* [facility] (01/25/2013 09:31:00) IMMUNOLOGY Hep A Tot Positive Negative 01/25 MH *NA* /2012 [facility] (01/25/2013 09:31:00) IMMUNOLOGY Hep Bs Ab 79.7 <=7.4 01/25 HI <sup>13</sup> MH Interpretive [facility] Data: <=7.4 mIU/mL------- -Negative for Anti-HBs. [...] /2012 [facility] Comment: 01/25/2013 09:23 [id number]
Called to _CRYSTAL at _01/25/2013 09:20 by [facility]_. CHEMISTRY Magnesium 1.7 1.8 - 2.4 01/25 LOW Lvl [facility] CHEMISTRY Phosphorus 1.9 2.5 - 4.5 01/25 LOW MH [facility] CHEMISTRY Troponin-I 0.04 0.00 - 01/25 Normal MH 0.40 /2012 [facility] CHEMISTRY Total CK 116 12 - 191 01/25 Normal [facility] CHEMISTRY CK MB 0.6 0.5 - 3.6 01/25 Normal MH [facility] CHEMISTRY CK-MB INDEX 0.5 0.0 - 2.5 01/25 Normal [facility] CHEMISTRY Troponin-I 0.04 0.00 - 10 Normal 0.40 /2012 [facility] CHEMISTRY Total CK 105 12 - 191 01/25 Normal [facility] CHEMISTRY CK MB 0.7 0.5 - 3.6 01/25 Normal [facility] CHEMISTRY CK-MB INDEX 0.7 0.0 - 2.5 01/25 Normal [facility] CHEMISTRY Chloride Lvl 107 95 - 109 01/24 Normal [facility] CHEMISTRY Potassium 3.6 3.5 - 5.1 01/24 Normal MH Lvl [facility] CHEMISTRY Sodium Lvl 143 135 - 145 01/24 Normal [facility] CHEMISTRY eGFR 93 01/24 <sup>6</sup>R esult [...] BUN 7 7 - 22 01/24 Normal [facility] CHEMISTRY Creatinine 0.6 0.5 - 1.4 01/24 Normal Lvl [facility] CHEMISTRY CO2 27 24 - 32 01/24 Normal [facility] CHEMISTRY Calcium Lvl 7.6 8.5 - 10.5 01/24 LOW [facility] CHEMISTRY Glucose Lvl 175 70 - 99 01/24 HI <sup>8</sup>I nterpretive [facility] Data: Adult reference range values reflect the clinical guidelines
of the [place] [employer]. CHEMISTRY AGAP 12.6 10.0 - 01/24 Normal MH 20. [facility] CHEMISTRY Phosphorus 2.6 2.5 - 4.5 01/24 Normal MH [facility] CHEMISTRY Magnesium 1.6 1.8 - 2.4 10 LOW MH Lvl [facility] BLOOD BANK ABO/Rh O POS 01/24 RESULTS [facility] BLOOD BANK RBC product Product available 5 01/24 Normal <sup> 5</sup>R RESULTS (01/23/2013 23:33:26) /2012 [facility] Meri roberts Comment: 01/23/2013 23:39 [id number]
Called to Pancho PAULSON at 01/23/2013 23:39_ by _PB. CHEMISTRY B/C Ratio 17 6 - 25 01/24 Normal MH [facility] CHEMISTRY AGAP 13.8 10.0 - 01/24 Normal 20. [facility] CHEMISTRY Globulin 3.2 2.0 - 4.0 01/24 Normal [facility] CHEMISTRY A/G Ratio 0.9 0.7 - 1.6 01/24 Normal [facility] CHEMISTRY Potassium 3.8 3.5 - 5.1 01/24 Normal Lvl [facility] CHEMISTRY Chloride Lvl 106 95 - 109 01/24 Normal [facility] CHEMISTRY Sodium Lvl 142 135 - 145 01/24 Normal [facility] CHEMISTRY eGFR 88 01/24 <sup>7</sup>R ult [facility] Comment: The eGFR is calculated using [...] CHEMISTRY ASPARTATE 46 0 - 37 01/24 [facility] TRANSAMINASE [facility] CHEMISTRY Alk Phos 168 39 - 136 01/24 HI MH [facility] CHEMISTRY Bili Total 0.6 0.2 - 1.3 01/24 Normal MH [facility] CHEMISTRY Albumin Lvl 2.9 3.5 - 5.0 01/24 LOW MH [facility] CHEMISTRY ALANINE 32 0 - 65 01/24 Normal AMINOTRANSFE /2012 [facility] RASE CHEMISTRY Calcium Lvl 7.8 8.5 - 10.5 01/24 LOW [facility] CHEMISTRY Total 6.1 6.4 - 8.4 01/24 LOW Protein [facility] CHEMISTRY CO2 26 24 - 32 01/24 Normal [facility] CHEMISTRY Creatinine 0.7 0.5 - 1.4 01/24 Normal Lvl [facility] CHEMISTRY Glucose Lvl 233 70 - 99 01/24 [place] <sup>9</sup>I nterpretive [facility] Data: Adult reference range values reflect the clinical guidelines
of the [place] [employer]. CHEMISTRY BUN 12 7 - 22 01/24 Normal [facility] HEMATOLOGY PROTIME 16.7 12.0 - 01/24 [facility] 14.7 /2012 [facility] HEMATOLOGY INR 1.37 0.85 - 01/24 [place] <sup>11</sup> 1.17 /2012 Interpretive [facility] Data: RECOMMENDED RANGES FOR PROTIME INR:
2.0-3.0 for most medical and surgical thromboemboli c states.
2.5-3.5 for artificial heart valves and recurrent embolism.<br/ >
INR SHOULD BE USED ONLY FOR PATIENTS ON STABLE ANTICOAGULANT THERAPY. HEMATOLOGY aPTT 29.7 22.9 - 01/24 Normal <sup>12</sup> 35.8 /2012 Interpretive [facility] Data: Heparin Therapeutic Range: 57 - 92 Seconds BLOOD BANK ABO/Rh O POS 01/24 RESULTS /2012 [facility] BLOOD BANK Antibody Negative 01/24 [facility] RESULTS Scrn (01/23/2013 22:13:00) /2012 [facility] STOOL Occult Bld Positive Negative 01/24 [facility] TESTS Stl *ABN* /2012 [facility] [...] 1940; Age: 76 years y/o Female MR: [id number] * LEFT HIP (2 views) with frontal [...] appears be in goo d position. SL: [id number] Pelvis AP DX EXAM: XR PELVIS 1 VIEW 01/05/2017 [facility] DATE: 01/05/2017 7:15 AM CDT [employer] er INDICATION: POST-OP LUIS - POST-OP LEFT LUIS COMPARISON: Same day TECHNIQUE: A single AP supine radiograph of the pelvis FINDINGS: Left bipolar hemiarthroplasties seen i n satisfactory alignment. The soft tissues are unremarkable. IMPRESSION: Postoperative i maging demonstrates satisfactory appearance of left bipolar hemiarthroplasty. Pelvis AP DX EXAM: Pelvis AP DX, Pelvis AP DX 01/05/2017 [facility] DATE: 01/05/2017 7:14 AM CDT Cent er [...] Pelvis AP DX, Pelvis AP DX 01/05/2017 [facility] DATE: 01/05/2017 7:14 AM CDT Cent er [...] EXAM: XR LEFT ANKLE 3 VIEWS 01/04/2017 [facility] EXAM: XR LEFT FOOT 3 VIEWS [...] EXAM: XR LEFT ANKLE 3 VIEWS 01/04/2017 [facility] EXAM: XR LEFT FOOT 3 [...] LEFT HIP 2 VIEW AND AP PELVIS [facility] EXAM: XR LEFT FEMUR 2 VIEWS [...] 2 VIEW AND AP PELVIS 01/05/20 17 [facility] EXAM: XR LEFT FEMUR 2 VIEWS Cent [...] ER Abdomen RLQ US HISTORY: Ascites. 02/09/2013 [facility] ultrasound abdomen w as performed to evaluate for possible paracentesis. Only scant ascites fluid is noted. As such, paracentesis was not performed at this time. SL:13 Bowel acute blood TAGGED RED BLOOD CELL SCAN NM 02/06/2013 [facility] loss imaging NM INDICATION: GI BLEED [...] ULTRASOUND WITH ASSOCIATED DOPPLER ST UDY: 01/25/2013 [facility] with Abdominal Doppler DISCUSSION: Best images [...] Date Comments Source Respitory Rate 18 01/11/2017 [facility] Temperature Oral (F) 98.5 F 01/11/2017 [facility] Systolic (mm Hg) 123 01/11/2017 [facility] Diastolic (mm Hg) 75 01/11/2017 [facility] Heart Rate 75 01/11/2017 [facility] Temperature Oral (F) 98.4 F 01/11/2017 [facility] Systolic (mm Hg) 113 01/11/2017 [facility] Diastolic (mm Hg) 65 01/11/2017 [facility] Respitory Rate 18 01/11/2017 [facility] Heart Rate 72 01/11/2017 [facility] Heart Rate 75 01/11/2017 [facility] Respitory Rate 18 01/11/2017 [facility] Systolic (mm Hg) 103 01/11/2017 [facility] Center Diastolic (mm Hg) 58 01/11/2017 [facility] Temperature Oral (F) 98.5 F 01/11/2017 [facility] Height 157.48 cm 01/04/2017 [facility] Weight 81.818 01/04/2017 [facility] BMI Calculated 32.99 01/04/2017 [facility] [place] BMI Calculated 32.99 01/04/2017 [facility] Weight 81.818 01/04/2017 [facility] Height 157.48 cm 01/04/2017 [facility] Heart Rate 77 02/10/2013 [facility] [...] 01/27/2013 [facility] Resp[facility] Rate 18 01/27/2013 [facility] Heart Rate 73 01/27/2013 [facility] Weight 84.091 01/24/2013 [facility] Height 157.48 cm 01/24/2013 [facility] Weight 79.545 01/24/2013 [facility] Height 160.02 cm 01/24/2013 [facility] Encounters Location Location Encounter Encounter Reason Attending ADM DC Stat us Source Details Type Number For Provider Date Date Visit Inpatient [id number] ENAYET 01/23 01/27 [facility] RAHIM /2012 [place] [id number] CARLOS 02/04 02/10 Discharg [facility] TEQWIMUAH /2012 ed [place] [facility] Inpatient [id number] Yamil Cassidy 01/04 01/11 [facility] /2016 [facility] Outpt Diag [id number] Jose 01/29 01/30 [facility] Lynsey Sushil velazquez [facility] oalexia Bah Procedures Procedure Code Date Perfomer Comments Source Endoscopic Excision 42.33 [facility] or Destruction of 3 Lesion or Tissue of Esophagus Transfusion of 99.04 [facility] Packed Cells 3 Colonoscopy 45.23 [facility] 3 Colonoscopy [id number] [facility] 3 Endoscopic Excision [id number] [facility] or Destruction of 3 Lesion or Tissue of Esophagus Transfusion of [id number] [facility] st Packed Cells 3 Appendectomy [id number] [facility], LORENZO Bah,[facility] Cholecystectomy [id number] [facility], LORENZO Bah,[facility] Hysterectomy [id number] [facility], LORENZO Bah,[facility] Laminectomy [id number] [facility], LORENZO Bah,[facility] TIPS - Transjugular [id number] [facility], OP ID portosystemic shunt Frien dswood Appendectomy [id number] [facility] Hysterectomy [id number] [facility] Assessment and Plan Assessment and Plan Date Source Extracted from:Title: Hospitalist Progress Note 01/11/2017 [facility] Author: Mary Alvarez MD Date: 01/10/17 Assessment/Plan [...] cancer and cirrhosis (on transplant list at [facility] since 2016), hypothyroidism, GERD, OA, chronic LBP, a nemia, and hemorrhoids who presented to the ED on 01/04/17. The history is obtained from the patient and through chart review. [facility] being [facility] by [place] [employer] when she fell down about 10 steps and landed on her L hip on 01/04/17. She had immediate pain and was unable to ambulate so she was taken to [facility] ED. She was diagnosed with a [...] one done about 3 months ago at [facility] as part of transplant workup/monitoring and was [...] 7. Discharge: Per primary. Follow up in [facility] ([phone]) or with [facility] (Enoc Benedict NP) in [facility] as outpatient 3-4 weeks after discharge. Please call [phone] with any questions or concerns. Bambi Hoffmann PA-C [employer] Addendum by Bambi Hoffmann on 01/08/2017 15:07 [...] Cessation Counseling No Social History TypeResponse 01/04/2017 [facility] Substance Abuse Use: None. Alcohol Past, Alcohol [...]
--- OUTSIDE RECORDS SUMMARY | 2020-03-05 16:14 | XMS REPORT | Continuity of Care Document ---
:1940 Author Organization [facility] t Address [address] [place] [address] Care Team Providers Name Role Phone LE Primary Care Physician Unavailable SYSTEM, NOT IN Attending Clinician Unavailable Ede ALVAREZ, G Attending Clinician Unavailable Lubna BOLAÑOS Attending Clinician LUBNA Attending Clinician Unavailable Parth Steven Attending Clinician Devonte ENGLAND Attending Clinician DEVONTE Attending Clinician Unavailable Dario Philip Attending Clinician Doug BOOKER Attending Clinician Vitor ALVAREZ Attending Clinician Unavailable Vicente ALVAREZ Attending Clinician Unavailable Jorge ENGLAND M Attending Clinician Benson Lynch Attending Clinician Jesus HOLDEN Attending Clinician BUNNY Attending Clinician Unavailable Janine CALDWELL Attending Clinician JANINE Attending Clinician Unavailable Hemant ALVAREZ Attending Clinician Unavailable Eric Fairbanks Attending Clinician Harleen Fairbanks MD Attending Clinician Bunny STEWARD RACETRACK Attending Clinician Ian Lynch Attending Clinician LYNSEY Attending Clinician Unavailable JOES DE PAZ Attending Clinician Unavailable GABRIELLA Attending Clinician Unavailable Felicia Menon Attending Clinician Kim Attending Clinician RAQUEL PAINTER Attending Clinician Unavailable ERICA BRENNAN Attending Clinician Unavailable Alena Cassidy Admitting Clinician JOSE DE PAZ Admitting Clinician Unavailable ERICA BRENNAN Admitting Clinician Unavailable Payers Payer Name Policy Type Policy Number Effective Date Expiration Date S nery AETNA MEDICARE [id number] 2013 PPO 00:00:00 AETNA - MEDICARE [id number] [address] [facility] MGD CAREAETNA 00:00:00 - Medical MEDICARE O POS Center [id number] [id number] PASJB Gibbons [id number] Problems Condition Condition Condition Status Onset Resolution Last Treating Co mments Source Name Details Category Date Date Treatment Clinician Date Cholangioc Cholangioc Disease Active 2019-0 M D arcinoma arcinoma 11-18 Dmitriy o 00:00: n 00 History of History of Disease Active 2019-0 M D diabetes diabetes 11-18 Dmitriy o mellitus mellitus 00:00: n type 2 type 2 00 Osteopenia Osteopenia Disease Active 2020-0 M D 11-18 Anderso 00:00: n 00 Lumbago Lumbago Disease Active 0 MD 11-18 Anderso 00:00: n 00 Diabetes Diabetes Disease Active MD mellitus mellitus 12-09 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 Acute Acute Disease Active 0 MD respirator respirator 820 An derso y failure y failure 00:00: [...] 01-04 21:59:00 l NECK FX LEFT 00:00: Alejandro FEMORAL 00 NECK FX Active 01/04/2017 [facility] Awaiting Awaiting Disease [facility] transplant transplant 00:00: Me dical 00 Center Angina at Angina at Disease Active [facility] rest rest 06-19 [facility] - 00:00: Medical 00 [place] Pre-transp Pre-transp Disease Active Last [facility] lant lant 2 Ass[facility]men [facility] - evaluation evaluation 00:00: t & Plan: [...] 2015-[address] ular ular 05-30 Assessmen [place] - carcinoma carcinoma 00:00: t & Plan: M edical 00 Continued Center locoregio nal therapy as indicated . Hypothyroi Hypothyroi Disease Active [facility] d d 01-11 [facility] - 00:[facility]: Medical 00 [place] Esophageal Esophageal Disease Active [facility] varices varices 01-11 [facility] - 00:[facility]: Medical 00 Center Hepatic Hepatic Disease Active Last [facility] encephalop encephalop 01-11 Assessmen Cristinekes - athy athy 00:00: t & Plan: Medical 00 Continue Center lactulose as prescribe d. 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 01-11 [facility] - thrombosis thrombosis 00:00: Me dical 00 [place] Anemia due Anemia due Disease Active [facility] to acute to acute 12-11 [facility] - blood loss blood loss 00:00: Me dical 00 Center Hypotensio Hypotensio Disease Active [facility] n n 12-11 [facility] 00:[facility]: Medical 00 Center S/P TIPS S/P TIPS Disease Active [facility] (transjugu (transjugu 1-20 Cristine kes - lar lar 00:00: Medical intrahepat intrahepat 00 Ce nter ic ic portosyste portosyste susan shunt) susan shunt) RECTAL Diagnosis Active 2012-042013-02-04 Mem oria BLEEDING 0-16 19:20:00 l RECTAL 09:00: Alejandro BLEEDING 00 Active 02/04/2013 [facility] Diagnosis Active 2012-042013-02-09 Mem oria BLEEDING 0-16 12:27:00 l GI 09:00: [place] BLEEDING 00 Active 02/04/2013 [facility] GI BLEED Diagnosis Active 2012-042013-01-27 M emoria 0-04 17:20:00 l GI BLEED 12:00: Elie n 00 Active 01/23/2013 [facility] Cirrhosis Cirrhosis Disease Active [facility] 6[facility]04 [facility] - 00:[facility]: Medical 00 [place] Fatty Fatty Disease Active Overview: [facility] liver liver 6-04 ICD9 DX [facility] - disease, disease, 00:00: [employer] 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 Rectal Rectal Disease Active [facility] bleeding bleeding 6-04 [facility] 00:[facility]: Medical 00 Center Hematochez Problem Active 2017-02-01 M emoria ia 4-06 05:42:45 l (finding) 00:00: [place] Hematochez 00 ia (finding) Active 07/26/2012 Problem 02/01/2017 Data migrated from [employer] on 09/18/14. [facility], OPID [facility] Internal Problem Active 2017-02-01 Mem oria hemorrhoid 4-06 05:42:45 l s without Internal 00:00: Her dill complicati hemorrhoid 00 on s without (disorder) complicati on (disorder) Active 07/26/2012 Problem 02/01/2017 Data migrated from [employer] on 09/18/14. [facility] OPID [facility] Residual Problem Active 2017-02-01 Mem oria hemorrhoid 4-06 05:42:45 l al skin Residual 00:00: Rut nn tags hemorrhoid 00 (disorder) al skin tags (disorder) Active 07/26/2012 Problem 02/01/2017 Data migrated from [employer] on 09/18/14. [facility] LISSAD [facility] Cirrhosis Problem Active 2017-02-01 Me moria of liver 4-04 05:42:45 l (disorder) 00:00: Elie n Cirrhosis 00 of liver (disorder) Active 07/24/2012 Problem 02/01/2017 Data migrated from [employer] on 09/18/14. [facility] LORENZO [facility]alena[facility] Esophageal Problem Active 2017-02-01 M emoria varices 4-04 05:42:45 l (disorder) 00:00: Elie n Esophageal 00 varices (disorder) Active 07/24/2012 Problem 02/01/2017 Data migrated from [employer] on 09/18/14. [facility] LORENZO Bearden d Portal Problem Active 2017-02-01 Memor ia hypertensi 4-04 05:42:45 l on Portal 00:00: [place] (disorder) hypertensi 00 on (disorder) Active 07/24/2012 Problem 02/01/2017 Data migrated from [employer] on 09/18/14. [facility] OPID Monisha d Closed Closed Problem Active [facility] displaced [...] nondisplac nondisplac it y of ed ed [place] fracture fracture Physic i of fourth of [...] l Anemia Alejandro (disorder) Resolved Problem 02/01/2017 [facility], OPID [facility] Cirrhosis Problem Resolve 2017-02-01 M emoria - d 05:42:45 l non-alcoho Elie n lic Cirrhosis (disorder) - non-alcoho lic (disorder) Resolved Problem 02/01/2017 [facility] OPINarayan Friends[facility] narayan,[facility] DM II Problem Resolve 2017-02-01 Malick aurora [Diabetes d 05:42:45 l mellitus DM II [place] type [Diabetes II](Confir mellitus med) type II](Confir med) Resolved Problem 02/01/2017 [facility] OPID [employer] Hemorrhoid Problem Resolve 2017-02-01 Memoria s d 05:42:45 l (disorder) Elie n Hemorrhoid s (disorder) Resolved Problem 02/01/2017 [facility] OPID [facility] [facility] Essential Problem Resolve 2017-02-01 M emoria hypertensi d 05:42:45 l on Alejandro (disorder) Essential hypertensi on (disorder) Resolved Problem 02/01/2017 [facility] OPID [employer] [facility] Malignant Problem Resolve 2017-02-01 M emoria neoplasm d 05:42:45 l of liver [place] (disorder) Malignant neoplasm of liver (disorder) Resolved Problem 02/01/2017 [facility]ID [employer] [facility] Diverticul Problem Resolve 2013-02-17 Memoria um d 01:01:34 l (morpholog Elie n ic Diverticul abnormalit um y) (morpholog ic abnormalit y) Resolved Problem 02/17/2013 [facility] DM II Problem Resolve 2013-02-17 Malick aurora [Diabetes d 01:01:34 l mellitus DM II Alejandro type II] [Diabetes mellitus type II] Resolved Problem 02/17/2013 [facility] HTN Problem Resolve 2013-02-17 Malick aurora d 01:01:34 l HTN [place] Resolved Problem 02/17/2013 [facility] Cirrhosis Problem Resolve 2013-01-31 M emoria - d 01:54:30 l non-alcoho Elie n lic Cirrhosis - non-alcoho lic Resolved Problem 01/31/2013 [facility] Diverticul Problem Resolve 2013-01-31 Memoria osis d 01:54:30 l Alejandro Diverticul osis Resolved Problem 01/31/2013 [facility] Metatarsal Problem Active 2017-02-01 M emoria bone 05:42:45 l fracture [place] (disorder) Metatarsal bone fracture (disorder) Active Problem 02/01/2017 [facility], OPID [facility] GASTROINTE Diagnosis Active 2013-02-[address] HEMORR 12:27:00 l NOS Alejandro GASTROINTE ST HEMORR NOS Active [facility] FRACTURE Diagnosis Active 2017-01-18 M emoria OF UNSP 21:59:00 l PART OF FRACTURE Rut nn NECK OF OF UNSP LEFT FE PART OF NECK OF LEFT FE Active [facility] Allergies, Adverse Reactions, Alerts Allergy Allergy Status Severity Reaction(s) Onset Inactive Treating Comm ents Source Name Type Date Date Clinician Adhesive Drug Active Rash [facility] Tape Allergy 10-12 [facility]: Medical [facility] Center Family History Family Member Diagnosis Comments Start Date Stop Date Source Natural brother Heart disease [facility] Natural father Heart disease [facility] Natural father Failure to thrive MD Galvez Natural mother Heart failure [facility] Natural mother COPD MD Thompson tena Social History Social Habit Start Date Stop Date Quantity Comments Source Sex Assigned At MD Izaguirre on Exposure to Not sure MD Galvez SARS-CoV-2 (event) Tobacco use and 2020-03-01 2020-03-01 Never used MD Izaguirre on exposure 00:00:00 00:00:00 Alcohol intake 2020-03-01 2020-03-01 Current MD Thompson tena 00:00:00 00:00:00 non-drinker of alcohol (finding) Social History 2017-01-04 2017-01-04 [facility] 22:46:20 22:46:20 Smoking Status Start Date Stop Date Source Never smoker MD Galvez Medications Ordered Filled Start Stop Current Ordering Indication Dosage Frequency Signature Comments Components Source Medication Medication Date Date Medication? Clinician (SIG) Name Name prochlorper 2020-1 Yes Nausea 10mg Take 1 MD azine 1-12 tablet (10 Anderso (COMPAZINE) 00:00: mg) by n 10 mg 00 mouth tablet every 6 (six) hours as needed for nausea or vomiting. Bifidobacte 2020-0 Yes 4mg Take 4 mg M D rium 8-25 by mouth Anderso infantis 08:39: daily. n (ALIGN 10 ORAL) cholecalcif 2020-0 Yes 1000U Take 1,000 MD don, 8-25 Units by Anderso vitamin D3, [...] 70/30) 100 unit/mL (70-30) insulin pen multivit-mi 2019-0 Yes 1{tbl} Take 1 MD n/iron/foli 8-25 tablet by And erso c/lutein 08:39: mouth n (CENTRUM 10 daily. SILVER WOMEN ORAL) albuterol 2019-0 Yes Inhale by MD (VENTOLIN 8-25 mouth. Anderso HFA,PROAIR 08:39: n HFA) 90 10 mcg/puff inhaler fluticasone Yes Inhale by Harleen Busch furoate-karen 8-25 mouth Anderso anteroL 08:39: daily. [...] 01-11 0.3 mL, l mL 16:34: SUB-Q, [place] subcutaneou 00 [id number], s solution Stop date is 01/26/17, 0 Refill(s) Ergocalcife Yes 50,000 Malick aurora rol [id number] 01-11 IntlUnit = l UNT Oral 16:34: 1 cap, PO, Her dill Capsule 00 Q7D, 0 Refill(s) Lactulose Yes 20 gm = 30 Me moria 667 MG/ML 01-11 mL, PO, l Oral 16:34: TID, PRN [place] Solution 00 Other -See Comment, 0 Refill(s) Monobasic No Notes: Memori a potassium - (Same as: l phosphate 22:00: Phos-NaK) Her dill 155 MG / 00 Each 1.5 Sodium gm pkt has Phosphate, 250mg Monobasic phosphorou 350 MG Oral s. Mix Tablet w/2.5oz water and stir. Lactulose No Notes: Memori a 667 MG/ML - (Same l Oral 21:47: as:Chronul [place] Solution 00 ac) potassium No Notes: Memori a phosphate-s - (Same as: l odium 19:00: Phos-NaK) Alejandro phosphate 00 Each 1.5 155 mg-350 gm [...] WASTE: F/P l 16:47: - Sink; E [place] 00 - Municipal Trash Bin influenza No Notes: Memori a virus 01-09 (Same as: l vaccine, 14:00: Fluzone Elie n inactivated 00 Quadrivale nt, Fluarix Quadrivale nt) For 3 years of age and older (0.5 mL IM) Shake well before use cyclobenzap No Notes: Malick aurora rine 01-09 (Same As: l 02:32: Flexeril) [place] Ergocalcife No Notes: Malick aurora rol [id number] 01-08 (Same as: l UNT Oral 21:00: Vitamin D) Her dill Capsule 00 "Do Not Crush" Calcium No Notes: Memoria Carbonate 01-07 (calcium l 1250 MG / 22:00: carbonate- He rm Cholecalcif vit D don 400 500mg-400u UNT nit TAB) Chewable Same as: Tablet Oyster-D, OsCal-D Baclofen No Notes: 5 Memor ia 01-06 mg =1/2 of l 22:00: 10 mg Tab (Same As: Lioresal) Cefazolin No Notes: Memori a 01-05 (Same As: l 21:00: Ancef, [place] 00 Kefzol) Cefazolin FOR IV SET ONLY [...] 01-05 Drug form: l 15:33: INJ, ONCE, Alejandro 00 Stop date: 01/05/17 10:33:00 CDT calcium No Route: IV, Malick aurora chloride 01-05 Drug form: l (ANES) 15:33: INJ, ONCE, Rut Stop date: 01/05/17 10:33:00 CDT dexamethaso No Route: IV, Memoria ne (ANES) 01-05 Drug form: l 15:02: INJ, ONCE, Alejandro 00 Stop date: 01/05/17 10:02:00 CDT esmolol No Route: IV, Malick aurora (ANES) 01-05 Drug form: l 14:07: INJ, ONCE, [place] Stop date: 01/05/17 9:07:00 CDT famotidine No Route: IV, M emoria (ANES) 01-05 Drug form: l 14:07: INJ, ONCE, [place] 00 Stop date: 01/05/17 9:07:00 CDT ferrous No Notes: Memoria sulfate 325 -16 Give with l MG Oral 14:00: food. "Do Herm bridgette Tablet 00 Not Crush" [Feosol] Furosemide No Notes: Memor ia 20 MG Oral -16 (Same as: l Tablet 14:00: Lasix) Alejandro [Lasix] 00 May cause GI upset. Give with food or milk. Zetia No Notes: Memoria 9-16 (Same as: l 14:00: Zetia) Cholecalcif No Notes: Malick aurora don -16 Same as : l 14:00: Vitamin D3 [place] 00 Streptococc No Notes: Malick aurora us -16 Shake well l pneumoniae 14:00: prior to Her dill serotype 1 00 use (Same capsular as: antigen Prevnar diphtheria 13) [id number] protein conjugate vaccine / Streptococc us pneumoniae serotype 14 capsular antigen diphtheria [id number] protein conjugate vaccine / Streptococc us pneumoniae serotype 18C capsular antigen d Spironolact No Notes: Malick aurora one -16 (Same As: l 14:00: Aldactone) senna 8.6 No Notes: Memori a mg oral 9-16 (Same as: l tablet 14:00: Senokot) Protonix No Notes: Memoria 9-16 Tablet l 14:00: should not Alejandro 00 be chewed or crushed. (Same as: Protonix) phenylephri No Route: IV, Memoria ne (ANES) 9-16 Drug form: l 13:52: INJ, ONCE, Stop [...] oria ne 01-05 Route: l 13:40: IVP, [place] 00 Q5Min, Dosing Weight 81.818, kg, PRN [...] 2017-0 No 1,000 mL, Memori a Chloride 01-05 Rate: 50 l 0.9% IV 13:40: ml/hr, Alejandro 1,000 mL 00 Infuse over: 20 hr, Route: IV, Dosing Weight 81.818 kg, Total Volume: 1,000, Start date: 01/05/17 8:40:00 CDT, Duration: 30 day, Stop date: 02/04/17 8:39:00 CDT Labetalol 2017-0 No 10 mg, Memori a 01-05 Route: l 13:40: IVP, Alejandro 00 Q5Min, Dosing Weight 81.818, kg, PRN Elevated BP, Start date: 01/05/17 8:40:00 CDT, Duration: 5 doses or times, Stop date: Limited # of times Hydralazine 2016-0 No 10 mg, Malick aurora 01-05 Route: l 13:40: IVP, [place] 00 Q20Min, Dosing Weight 81.818, kg, PRN Elevated BP, Start date: 01/05/17 8:40:00 CDT, Duration: 2 doses or times, Stop date: Limited # of times sodium 2016-0 No Route: IV, Memor ia chloride 01-05 Total l 0.9% 1000 12:45: Volume: Rut nn ml INJ 00 1,000, (ANES) Start date: 01/05/17 7:45:00 CDT, Stop date: 01/05/17 8:45:00 CDT Thyroxine 2017-0 No Notes: Memori a -16 Take 1 l 11:30: hour Alejandro 00 before or 2 hours after meal; Enteral feeds may interefere with the absorption of this medication .(Same as:Levothr oid, Synthroid) Lovenox No Notes: Memoria 9-16 (Same as: l 00:00: Lovenox) Alejandro 00 Humalog Mix No Notes: Malick aurora 75/25 9-15 (Same as: l 22:57: Humalog [place] Mix) WASTE: F/P - Black; E - Municipal Trash Bin Docusate No Notes: Memoria 9-15 (Same as: l 22:00: Colace) [place] (Do Not Crush) Propranolol No Notes: Malick aurora 9-15 Give with l 22:00: food. Alejandro (Same as: Inderal) Miralax No Notes: Memoria 9-15 Dissolve l 22:00: in 8 oz of Alejandro 00 water or juice. (Same as: Miralax) [place]-3 No Notes: Memoria Acid Ethyl -15 (Same as: l Esters 22:00: MaxEPA, Alejandro ([facility]) 1000 00 [place] 3 MG Oral fish oil ) Capsule [Lovaza] Non-Formul josy Drug NovoLOG No 55 unit, Memori a 70/30 15 Route: l 21:30: SUB-Q, [place] 00 BID-Before Meals, Dosing Weight 81.818, kg, Start date: 01/04/17 16:30:00 CDT, Duration: 30 day, Stop date: 02/03/17 7:30:00 CDT Humalog Mix No Notes: Malick aurora 75/25 9-15 (Same as: l 21:30: Humalog [place] ) WASTE: F/P - Black; E - [...] mL, Route: l 16:51: IVP, Drug Alejandro Form: INJ, Dosing Weight 81.818, kg, PRN, PRN Blood Glucose Results, Start date: 01/04/17 11:51:00 CDT, Duration: 30 day, Stop date: 02/03/17 11:50:00 CDT Glucagon No 1 mg, Memoria 01-04 Route: IM, l 16:51: Drug form: Alejandro 00 PDR/INJ, PRN, Dosing Weight 81.818, kg, PRN Blood Glucose Results, Start date: 01/04/17 11:51:00 CDT, Duration: 30 day, Stop date: 02/03/17 11:50:00 CDT Oxycodone No Notes: Memori a Hydrochlori 01-04 (Same as: l de 5 MG 16:48: Roxicodone Herm bridgette Oral Tablet 00 ) Lactulose No Notes: Memori a 667 MG/ML 01-04 (Same l Oral 16:46: as:Chronul Alejandro Solution 00 ac) Furosemide Yes 20 mg [...] # l powder 16:41: 20 gm, 0 [place] 00 Refill(s) Lovaza No 1,000 mg Memoria 9-15 =, PO, l 16:41: BID, 0 [place] 00 Refill(s) NovoLOG 2017 Yes 55 unit, Memori a 70/30 9-15 SUB-Q, l 16:41: BID-Before Alejandro 00 Meals, 0 Refill(s) spironolact Yes 25 mg = 1 M emoria one 25 mg 9-15 tab, PO, l oral tablet 16:41: Daily, # He rmann 00 30 tab, 3 Refill(s) Cholecalcif No 1,000 Memor ia don 9-15 IntlUnit, l 16:41: PO, Daily, [place] 00 0 Refill(s) pantoprazol Yes 40 mg = 1 M emoria e 40 MG 9-15 tab, PO, l Enteric 16:41: Daily, # Elie n Coated 00 30 tab, 0 Tablet Refill(s) [Protonix] Saline No Notes: Memoria Flush 0.9% 01-04 Same as: l 16:39: BD [place] 00 Posiflush Sterile sodium No 1,000 mL, Memori a chloride 01-04 Rate: 75 l 0.9% 1000 16:39: ml/hr, Elie n ml INJ 00 Infuse 1,000 mL over: 13.3 hr, Route: IV, Dosing Weight 81.818 kg, Total Volume: 1,000, Start date: 01/04/17 11:39:00 CDT, Duration: 30 day, Stop date: 02/03/17 11:38:00 CDT Morphine No Notes: Memoria -15 (Same l 16:39: as:MORPhin [place] 00 e Sulfate) Ondansetron No Notes: Malick aurora -15 (Same as: l 16:39: Zofran) [place] 00 MEDICATION WASTE Product Size: 4 mg Product Wasted: ___ mg Ondansetron No Notes: Malick aurora -15 (Same as: l 10:13: Zofran) Alejandro 00 MEDICATION WASTE Product Size: 4 mg Product Wasted: ___ mg Morphine No Notes: Memoria -15 (Same l 10:13: as:MORPhin Alejandro 00 e Sulfate) FAMOTIDINE Yes 40mg Take [address] ORAL 4-25 by mouth [facility] - 17:56: once . Medical 11 Center propranolol Yes 40mg Q.5D Take [address] [facility] (INDERAL) 4-25 by mouth 2 [facility] - 40 MG 17:56: (two) Medical tablet 11 times Center daily. BIFIDOBACTE 2017-0 Yes 4mg QD Take [address] RIUM 4-25 by mouth [facility] - INFANTIS 17:56: daily. Medical (ALIGN 11 Center ORAL) omega-3 2017-0 Yes 1g Q.5D Take [address] [facility] acid ethyl 4-25 by mouth 2 [place] - esters 17:56: (two) Medical (LOVAZA) 1 11 times Center gram daily. capsule traMADol 2017 Yes 50mg Take [address] [facility] (ULTRAM) 50 4-25 by mouth Luke s - mg tablet 17:56: every 6 Medic al 11 (six) Center hours as needed. vitamin E 2017 Yes 400U QD Take [address] [facility] 400 UNIT 4-25 Units by [facility] - capsule 17:56: mouth Medical 11 daily. Center ferrous 2017-0 Yes 325mg Take 325 [facility] sulfate 325 4-25 mg by [facility] - (65 FE) MG 17:56: mouth Medica l tablet 11 daily with Center breakfast. spironolact Yes 50mg QD Take [address] one 4-25 by mouth [facility] - (ALDACTONE) 17:56: daily. Medi stephenie 50 MG 11 Center tablet ezetimibe Yes 10mg QD Take [address] (ZETIA) 10 4-25 by mouth [facility] - mg tablet 17:56: daily. Medica l 11 Center furosemide 0 Yes 20mg QD Take [address] (LASIX) 20 4-25 by mouth [facility] - MG tablet 17:56: daily. Medica l 11 [place] insulin Yes 60U Inject 60 [facility] aspart 4-25 Units [facility] - (NOVOLOG) 17:56: subcutaneo Me dical 100 unit/mL 11 usly 2 Center InPn (two) times daily before meals . pregabalin 2017-0 Yes 100mg Q.5D Take [address] (LYRICA) 75 4-25 mg by [facility] - MG capsule 17:56: mouth 2 Medi stephenie 11 (two) Center times daily . cholecalcif Yes 1000U QD Take 1,[address] [facility] don 4-25 Units by [facility] - (VITAMIN 17:56: mouth Medical D3) 1,000 11 daily. Center unit tablet lactulose 2016-1 Yes 20g Q.5D Take [address] (CHRONULAC) 2-10 by mouth 2 Cristine kes - 20 gram/30 00:00: (two) Medica l mL solution 00 times Center daily Take 20mg by mouth 2 to 3 times daily as needed . levothyroxi Yes 50ug QD Take [address] ne 1-22 tablet (50 [facility] - (SYNTHROID, 00:00: mcg total) Medical LEVOTHROID) 00 by mouth Cent er 50 MCG daily. tablet levothyroxi Yes 50ug Take 50 MD ne 1-22 mcg by Anderso (SYNTHROID, 00:00: mouth n LEVOTHROID) 00 daily. 50 mcg tablet Lasix 20 mg 2012-04 Yes Leeroy 20 [...] 0-22 [place] tab, l 14:00: Route: PO, Drug form: TAB, Daily, Dosing Weight 84.3, kg, Start date: 02/10/13 9:00:00, Duration: 30 day, Stop date: 03/11/13 9:00:00(Sa me as: Lasix) May cause GI upset. Give with food or milk. Tessalon 2012-04 No Leeroy 100 mg, 1 Malick aurora Perles 0-22 [place] cap, l 04:03: Route: PO, Alejadnro 00 Drug form: CAP, TID, Dosing Weight 84.3, kg, PRN Cough, Start date: 02/09/13 23:03:00, Duration: 30 day, Stop date: 03/11/13 23:02:00(S rosey As: Tiaracjelly Reva) "Do Not Crush" spironolact 2012-04 No Leeroy 50 mg, 2 Me moria one 0-21 [place] tab, l 22:00: Route: PO, Alejandro 00 Drug form: TAB, BID, Dosing Weight 84.3, kg, Start date: 02/09/13 17:00:00, Duration: 30 day, Stop date: 03/11/13 9:00:00([facility] As: Aldactone) Protonix 2012-04 No Leeroy 40 mg, 1 Memor ia 0-21 [place] tab, l 02:00: Route: PO, [place] 00 Drug form: ECTAB, Q12H, Dosing Weight 84.3, kg, Start date: 02/08/13 21:00:00, Stop date: 03/10/13 9:00:00Tab let should not be chewed or crushed. (Same as: Protonix) Anusol-HC 2012-04 No Theodoros 1 appl, Memoria 2.5% rectal 0-20 Voloyianni Route: PA, l cream with 22:00: s BID, Drug He rmann applicator 00 form: CRM, Start date: 02/08/13 17:00:00, Duration: 30 day, Stop date: 03/10/13 9:00:00 HC 2012-04 Yes Theodoros 1 appl, Memor ia Pramoxine 0-20 Voloyianni TOP, TID, l 2.5%-1% 19:01: s 28 gm, Alejandro topical 21 Substituti cream on Allowed, Maintenanc e, CRM nitroglycer 2012-04 No Leeroy 0.4 mg, 1 M emoria in 0.4 mg 0-20 [place] tab, l sublingual 14:05: Route: SL, H ermann tablet 00 Drug form: TAB, Q5Min, PRN Chest Pain, Start date: 02/08/13 9:05:00, Duration: 30 day, Stop date: 03/10/13 8:04:00([facility] as:Nitroqu ick, Nitrostat) "Do Not Crush" Sublingual tablet atropine 2012-04 No Leeroy 0.5 mg, 5 Malick aurora 0-20 [place] mL, Route: l 14:05: IVP, Drug Alejandro 00 form: INJ, PRN, PRN Bradycardi a, Start date: 02/08/13 9:05:00, Duration: 30 day, Stop date: 03/10/13 8:04:00 Sodium 2012-04 No C 1,000 mL, Malick aurora Chloride 0-18 Maxian Rate: 25 l 0.9% IV 19:38: ml/hr, [place] 1,000 mL 00 Infuse over: 40 hr, [...] 0-18 [place] microgram, l 11:00: 1 tab, [place] 00 Route: PO, Drug form: TAB, Q6AM, [...] Memor ia 0-17 Daily, l 14:50: Substituti [place] 10 on Allowed Evista 2012-04 No Leeroy 60 mg, 1 Memoria 0-17 [place] tab, l 14:00: Route: PO, [place] 00 Drug form: TAB, Daily, Dosing Weight [...] 0-17 [place] cap, l 14:00: Route: PO, [place] 00 Drug form: CAP, Q8H, Dosing Weight 84.3, kg, Start date: 02/05/13 9:00:00, Duration: 30 day, Stop date: 03/07/13 8:00:00( me as: Lyrica) Zetia 2012-04 No Leeroy 10 mg, 1 Memoria 0-17 [place] tab, l 14:00: Route: PO, [place] 00 Drug form: TAB, Daily, Dosing Weight [...] Memoria 0-17 [place] microgram, l 05:57: Route: [place] 00 IVP, ONCE, Dosing Weight 79.545, kg, [...] [place] Rate: 10 l Sodium 05:57: ml/hr, [place] Chloride 00 Infuse 0.9% IV 100 over: [...] 0-17 [place] 0.1 mL, l 05:57: Route: Alejandro SUB-Q, Drug form: SOLN, Sliding Scale, Dosing [...] 0-17 [place] 25 mL, l 05:57: Route: IVP, Drug Form: INJ, Dosing Weight 79.545, kg, PRN, PRN Blood Glucose Results, Start date: 02/05/13 0:57:00, Duration: 30 day, Stop date: 03/06/13 23:56:00 glucagon 2012-04 No Leeroy 1 mg, Memoria 0-17 [place] Route: IM, l 05:57: Drug form: PDR/INJ, PRN, Dosing Weight 79.545, kg, PRN Blood Glucose Results, Start date: 02/05/13 0:57:00, Duration: 30 day, Stop date: 03/06/13 23:56:00 Protonix 2012-04 No Pedrito 80 mg, Malick aurora 0-17 Lilianen Route: l 04:43: IVP, Drug form: INJ, ONCE, Start date: 02/04/13 23:43:00, Stop date: 02/04/13 23:43:00Fo r IV push reconstitu te with 10 ml 0.9% sodium chloride and push over 2 minutes. (Same as: Protonix) pantoprazol 2012-04 No Pedrito 100 mL, Memoria e 80 mg + 0-17 [place] Rate: 10 l Sodium 04:35: ml/hr, [place] Chloride 00 Infuse 0.9% IV 100 over: 10 mL hr, Route: IVPB, Dosing Weight 79.545 kg, Total Volume: 100, Infuse at 8 mg / hr for 72 hours for GI bleeding, Start date: 02/04/13 23:35:00, Duration: 72 hr, Stop date: 02/07/13 23:34:00 Sodium 2012-04 No Pedrito 20 mL, Memori a Chloride 0-17 [place] Rate: 240 l 0.9% 04:35: ml/hr, Alejandro (Bolus) IV 00 Infuse 20 mL + [...] 0-17 [place] microgram, l 04:34: 0.5 mL, [place] 00 Route: IVP, Drug form: INJ, ONCE, Dosing Weight 79.545, kg, Start date: 02/04/13 23:34:00, Duration: 1 doses or times, Stop date: 02/04/13 23:34:00(Balbina currie As: Lyndsey tena). Refrigerat e. Centrum 2012-04 Yes 1 tab, PO, Malick aurora Silver oral 0-17 Daily, 30 l tablet 00:55: tab, [place] 38 Substituti on Allowed, Maintenanc e, TAB Align 2013-1 Yes 4 mg, Memoria 0-17 Daily, l 00:55: Substituti [place] 11 on Allowed pantoprazol 2012-04 No Pedrito 40 mg, M emoria e 0-17 [place] Route: l 00:51: IVP, ONCE, Dosing Weight 79.545, kg, For IV push reconstitu te with 10 ml 0.9% sodium chloride and push over at least 3 minutes, Priority: STAT, Start date: 02/04/13 19:51:00, Stop date: 02/04/13 19:51:00 Saline 2012-04 No Pedrito 5 mL, Memoria Flush 0.9% 0-17 Route: l 00:51: IVP, Drug Form: INJ, [...] Voloyianni TOP, l with 22:00: s Dosing [place] cleansing 00 Weight wipes oral 84.091, and topical kg, BID, kit Start date: 01/26/13 17:00:00 Sodium 2012-04 No Lockwood Vu 1,000 mL, Malick auroar Chloride 0-07 Curt Rate: 25 l 0.9% IV 14:40: ml/hr, Alejandro 1,000 mL 00 Infuse over: 40 hr, Route: IV, Dosing Weight 84.091 kg, Total Volume: 1,000, Start date: 01/26/13 9:40:00, Duration: 1 day, Stop date: 01/27/13 9:39:00 GoLCARLTONLY 2012-04 No Reilly K 4,000 ml, Memoria 0-06 Jasmeet Route: PO, l 20:00: Drug Form: Alejandro 00 PDR/REC, Dosing Weight 84.091, kg, ONCE, Start date: 01/25/13 15:00:00, Duration: 1 doses or times, Stop date: 01/25/13 15:00:00(p olyethylen e glycol electrolyt e solution 4 Liter bottle) (Same as: Paulina Thakkar) NS 2012-04 No Reilly K IV, 30 Memoria 0-06 Jasmeet ml/hr, l 16:50: PRN, PRN [place] 00 Blood Transfusio n, Start date: 01/25/13 11:50:00, Duration: 1, 250 ml Vitamin K1 2012-04 No Reilly K 10 mg, 1 Memoria 0-06 Jasmeet mL, Route: l 15:31: SUB-Q, [place] 00 Drug form: INJ, ONCE, Dosing Weight 84.091, kg, Start date: 01/25/13 10:31:00, Duration: 1 doses or times, Stop date: 01/25/13 10:31:00(S rosey as: Aqua-Mephy ton, Vitamin K) Zetia 2012-04 No Ashley N 10 mg, 1 Malick aurora 0-05 Onochie tab, l 14:00: Route: PO, [place] 00 Drug form: TAB, Daily, Dosing Weight 79.545, kg, Start date: 01/24/13 9:00:00, Duration: 30 day, Stop date: 02/22/13 9:00:00( me as: Zetia) Evista 2012-04 No Ashley N 60 mg, 1 Mem oria 0-05 Onochie tab, l 14:00: Route: PO, Alejandro 00 Drug form: TAB, Daily, Dosing Weight 79.545, kg, Start date: 01/24/13 9:00:00, Duration: 30 day, Stop date: 02/22/13 9:00:00(Sa me as:Evista) "Do Not Crush" propranolol 2012-04 No Ashley N 40 mg, 1 Memoria 0-05 [place] tab, l 14:00: Route: PO, [place] 00 Drug form: TAB, BID, Dosing Weight [...] Rahim Route: IV, l 14:00: Drug form: [place] 00 INJ, Q12H, Dosing Weight 79.545, kg, [...] 2:14:00, Duration: 30 day, Stop date: 02/23/13 1:13:00( me as:Nitroqu ick, Nitrostat) "Do Not Crush" Sublingual tablet atropine 2012-04 No Enayet 0.5 mg, 5 Me moria 0-05 Rahim mL, Route: l 07:14: IVP, Drug Alejandro 00 form: INJ, PRN, PRN Bradycardi a, Start date: 01/24/13 2:14:00, Duration: 30 day, Stop date: 02/23/13 1:13:00 acetaminoph 2012-04 No Enayet 650 mg, M emoria en 0-05 Rahim 20.3 mL, l 06:09: Route: PO, Alejandro 00 Drug form: LIQ, Q4H, Dosing Weight 84.091, kg, PRN Pain 1-3/Temp > 100.4 F, Start date: 01/24/13 1:09:00, Duration: 30 day, Stop date: 02/23/13 1:08:00Max acetaminop hen = 4000mg/day (4 gm/day). (Same as: Tylenol) ondansetron 2012-04 No Enayet 4 mg, 2 M emoria 0-05 Rahim mL, Route: l 06:09: IVP, Drug [place] 00 form: INJ, Q8H, Dosing Weight 84.091, kg, PRN Nausea & Vomiting, Start date: 01/24/13 1:09:00, Duration: 30 day, Stop date: 02/23/13 1:08:00( me as: Zofran) Zetia 10 mg 2012-04 Yes Ashley N 10 mg, 1 Memoria oral tablet 0-05 Ono[place] tab, PO, l 04:29: Daily, 30 Alejandro 30 tab, Substituti on Allowed, TAB Voltaren 2012-04 Yes 1 appl, Memori a Topical 1% 0-05 TOP, QID, l topical gel 04:29: 100 gm, Her dill 19 Substituti on Allowed, GEL propranolol 2012-04 Yes Ashley N 40 mg, 1 Memoria 40 mg oral 0-05 [place] tab, PO, l tablet 04:29: BID, 180 [place] 00 tab, Substituti on Allowed, TAB Metamucil 2012-04 Yes Substituti Me moria 0-05 on l 04:28: Allowed, [place] 44 Maintenanc e Lyrica 75 2012-04 Yes 75 mg, 1 Malick aurora mg oral 0-05 cap, PO, l capsule 04:28: TID, 90 [place] 32 cap, Substituti on Allowed, CAP Lovaza [...] PO, Daily, l tablet 04:27: 30 tab, [place] 05 Substituti on Allowed famotidine 2012-04 Yes 40 mg, PO, M emoria 0-05 BID, 60 l 04:26: tabMeenaAlejandro 34 Substituti on Allowed Evista 60 2012-04 [...] date: 02/22/13 20:51:00, Replace Every: 24 hr Vital Signs Vital Name Observation Time Observation Value Comments Source Systolic blood 2020-03-02 21:28:00 135 mm[Hg] pressure Diastolic blood 2020-03-02 21:28:00 77 mm[Hg] MD Mayo derson pressure Heart rate 2020-03-02 21:28:00 105 /min MD Lm juarez Respiratory rate 2020-03-02 21:28:00 18 /min MD Dorothy henao Oxygen saturation in 2020-03-02 21:28:00 97 /min MD Galvez Arterial blood by Pulse oximetry Body temperature 2019-11-19 20:43:00 36.72 Hanna MD Dorothy henao Body weight 2019-11-19 20:43:00 76.1 kg MD Lm juarez BMI 2019-11-19 20:43:00 30.48 kg/m2 MD Lm juarez Respitory Rate 2017-01-11 17:52:00 Alessandro Mckeon Temperature Oral (F) 2017-01-11 17:52:00 98.5 F Angeles Allen Systolic (mm Hg) 2017-01-11 17:52:00 Malick rial Alejandro Diastolic (mm Hg) 2017-01-11 17:52:00 Mem orial Alejandro Heart Rate 2017-01-11 17:52:00 [facility] [place] Temperature Oral (F) 2017-01-11 13:27:00 98.4 F [facility] [place] Systolic (mm Hg) 2017-01-11 13:27:00 Malick rial Alejandro Diastolic (mm Hg) 2017-01-11 13:27:00 Mem orial Alejandro Respitory Rate 2017-01-11 13:27:00 Memori al [place] Heart Rate 2017-01-11 13:27:00 [facility] Heart Rate 2017-01-11 09:05:00 [facility] [place] Respitory Rate 2017-01-11 09:05:00 Memori al Alejandro Systolic (mm Hg) 2017-01-11 09:05:00 Malick rial [place] Diastolic (mm Hg) 2017-01-11 09:05:00 Mem orial Alejandro Temperature Oral (F) 2017-01-11 09:05:00 98.5 F [facility] Height 2017-01-04 19:54:00 157.48 cm [facility] [place] Weight 2017-01-04 19:54:00 [facility] BMI Calculated 2017-01-04 19:54:00 Mem[facility] al [place] BMI Calculated 2017-01-04 08:41:00 Memori al [place] Weight 2017-01-04 08:41:00 [facility] [place] Height 2017-01-04 08:41:00 157.48 cm [facility] Heart Rate 2013-02-10 12:53:00 [facility] [place] Respitory Rate 2013-02-10 12:53:00 Memori al Alejandro Systolic (mm Hg) 2013-02-10 12:53:00 Malick rial [place] Diastolic (mm Hg) 2013-02-10 12:53:00 Mem orial Alejandro Temperature Oral (F) 2013-02-10 12:53:00 98.3 F [facility] [place] Heart Rate 2013-02-10 09:29:00 [facility] [place] Respitory Rate 2013-02-10 09:29:00 Memori al [place] Diastolic (mm Hg) 2013-02-10 09:29:00 Mem orial Alejandro Systolic (mm Hg) 2013-02-10 09:29:00 Malick rial Alejandro Temperature Oral (F) 2013-02-10 09:29:00 98.4 F [facility] Respitory Rate 2013-02-10 04:24:00 Memori al Alejandro Heart Rate 2013-02-10 04:24:00 [facility] Temperature Oral (F) 2013-02-10 04:24:00 98.4 F [facility] [place] Diastolic (mm Hg) 2013-02-10 04:24:00 Mem orial Alejandro Systolic (mm Hg) 2013-02-10 04:24:00 Malick rial [place] Weight 2013-02-05 06:05:00 [facility] Weight 2013-02-05 00:04:00 [facility] Height 2013-02-05 00:04:00 157.48 cm [facility] [place] Heart Rate 2013-01-27 21:10:00 [facility] Temperature Oral (F) 2013-01-27 21:10:00 97.6 F [facility] [place] Diastolic (mm Hg) 2013-01-27 21:10:00 Mem orial Alejandro Respitory Rate 2013-01-27 21:10:00 Memori al Alejandro Systolic (mm Hg) 2013-01-27 21:10:00 Malick rial Alejandro Diastolic (mm Hg) 2013-01-27 18:12:00 Mem orial [place] Respitory Rate 2013-01-27 18:12:00 Memori al Alejandro Systolic (mm Hg) 2013-01-27 18:12:00 Malick rial Alejandro Heart Rate 2013-01-27 18:12:00 [facility] Temperature Oral (F) 2013-01-27 18:12:00 98.1 F [facility] Diastolic (mm Hg) 2013-01-27 13:07:00 Mem orial Alejandro Systolic (mm Hg) 2013-01-27 13:07:00 Malick rial [place] Temperature Oral (F) 2013-01-27 13:07:00 98.3 F [facility] Respitory Rate 2013-01-27 13:07:00 Memori al [place] Heart Rate 2013-01-27 13:07:00 [facility] Weight 2013-01-24 06:00:00 [facility] Height 2013-01-24 06:00:00 157.48 cm [facility] [place] Weight 2013-01-24 00:44:00 [facility] [place] Height 2013-01-24 00:44:00 160.02 cm [facility] Procedures Procedure Date / Time Performing Clinician Source Performed PA ABDOM PARACENTESIS 2020-03-02 21:00:00 Inder Whitney MD And erson DX/THER W IMAGING GUIDANCE CYTOLOGY NON-PLYWOOD LAYUP LINE CORE FEEDER 2020-02-26 21:08:00 Bonilla Camacho MD Lm son INTERPRETATION PA ABDOM PARACENTESIS 2020-02-26 20:20:00 Inder Whitney MD And erson DX/THER W IMAGING GUIDANCE COMPLETE BLOOD COUNT W/ 2020-02-26 19:30:00 Inder Whitney MDrson DIFFERENTIAL COMPREHENSIVE METABOLIC 2020-02-26 19:30:00 Inder Whitney MD nderson PANEL MAGNESIUM LEVEL 2020-02-26 19:30:00 Inder Whitney MD PARTIAL THROMBOPLASTIN 2020-02-26 19:30:00 Inder Whitney MD derson TIME PROTHROMBIN TIME 2020-02-26 19:30:00 Inder Whitney MD Results CBC 2020-02-26 19:30:00 Inder Whitney MD MANUAL DIFFERENTIAL 2020-02-26 19:30:00 [facility] GLUCOSE LEVEL 2020-02-26 19:30:00 Inder Whitney MD BLOOD UREA NITROGEN 2020-02-26 19:30:00 Inder Whitney MD [facility] ELECTROLYTE PANEL 2020-02-26 19:30:00 Inder Whitney MD Andadalido n SERUM CREATININE 2020-02-26 19:30:00 Inder Whitney MD .GLOMERULAR FILTRATION 2020-02-26 19:30:00 Inder Whitney MD derson RATE CALCIUM LEVEL TOTAL 2020-02-26 19:30:00 Inder Whitney MD [facility] ALBUMIN LEVEL 2020-02-26 19:30:00 Inder Whitney MD ALKALINE PHOSPHATASE 2020-02-26 19:30:00 Inder Whitneye rson ALANINE AMINOTRANSFERASE 2020-02-26 19:30:00 Inder Whitney MD ASPARTATE AMINOTRANSFERASE 2020-02-26 19:30:00 Inder Whitney TOTAL PROTEIN 2020-02-26 19:30:00 Inder Whitney MD FRACTIONATED BILIRUBIN 2020-02-26 19:30:00 Inder Whitney MD derson OSI CT CHEST ABDOMEN 2020-01-19 19:38:14 Inder Whitney MD Compa rson PELVIS OSI CHEST 2020-01-19 17:08:27 Redd Salinas MD COMPLETE BLOOD COUNT W/ 2019-11-19 20:17:00 Machelle Hollis MD nderson DIFFERENTIAL COMPREHENSIVE METABOLIC 2019-11-19 20:17:00 Machelle Hollis MD nderson PANEL CANCER ANTIGEN 19-9 2019-11-19 20:17:00 Machelle Hollis MD Lm son ALPHA FETOPROTEIN TUMOR 2019-11-19 20:17:00 Machelle Hollis MD nderson MARKER MAGNESIUM LEVEL 2019-11-19 20:17:00 Machelle Hollis MD LACTATE DEHYDROGENASE 2019-11-19 20:17:00 Bunny, Machelle BOLAÑOS And erson Results CBC 2019-11-19 20:17:00 Machelle Hollis MD MANUAL DIFFERENTIAL 2019-11-19 20:17:00 Machelle Hollis MD Lm son GLUCOSE LEVEL 2019-11-19 20:17:00 Machelle Hollis MD BLOOD UREA NITROGEN 2019-11-19 20:17:00 Machelle Hollis MD Lm son ELECTROLYTE PANEL 2019-11-19 20:17:00 Machelle Holliserso n SERUM CREATININE 2019-11-19 20:17:00 Machelle Hollis MD [...] MD FRACTIONATED BILIRUBIN 2019-11-19 20:17:00 Machelle Hollis MDson MRI ABDOMEN W WO CONTRAST 2019-11-19 18:52:21 Marina Mehta MD XR DXA BONE DENSITY STUDY 2019-10-27 14:55:00 Lizett Fair[place] [facility]SI [facility] SPINE 2019-10-15 17:07:25 Redd Salinas MD COMPLETE BLOOD COUNT W/ 2019-03-13 18:33:53 Marina Mehta MD DIFFERENTIAL COMPREHENSIVE METABOLIC 2019-03-13 18:33:53 Marina Mehta MD PANEL Results CBC 2019-03-13 18:33:53 Marina Mehta MD MANUAL DIFFERENTIAL 2019-03-13 18:33:53 Marina Mehta MD And erson GLUCOSE LEVEL 2019-03-13 18:33:53 Marina Mehta MD n BLOOD UREA NITROGEN 2019-03-13 18:33:53 Marina Mehta MD And erson ELECTROLYTE PANEL 2019-03-13 18:33:53 Marina Mehta MD Lm son SERUM CREATININE 2019-03-13 18:33:53 Marina Mehta MD Dmitriy on .GLOMERULAR FILTRATION 2019-03-13 18:33:53 Marina Mehta MD RATE CALCIUM LEVEL TOTAL 2019-03-13 18:33:53 Marina Mehta MD And erson ALBUMIN LEVEL 2019-03-13 18:33:53 Marina Mehta MD ALKALINE PHOSPHATASE 2019-03-13 18:33:53 Marina Mehta MDson ALANINE AMINOTRANSFERASE 2019-03-13 18:33:53 Marina Mehta ASPARTATE AMINOTRANSFERASE 2019-03-13 18:33:53 Marina Mehta MD TOTAL PROTEIN 2019-03-13 18:33:53 Marina Mehta MD FRACTIONATED BILIRUBIN 2019-03-13 18:33:53 Marina Mehta MD MRI ABDOMEN W WO CONTRAST 2019-03-12 16:46:00 Marina Mehta MD [U] XRAY HIP UNILATERAL 2019-01-07 [facility] [id number] [U] XRAY HIP UNILATERAL 2019-01-02 00:00:00 [facility] [id number] Physicians [U] XRAY HIP UNILATERAL 2018-01-01 00:00:00 [facility] [id number] Physicians [U] XRAY HIP UNILATERAL 2017-12-20 00:00:00 [facility] [place] [facility] [id number] Physicians [U] XRAY HIP UNILATERAL 2017-08-21 00:00[facility]00 [facility] [id number] Physicians [U] XRAY FOOT MIN 3 VWS 2017-05-29 00:00:[address] [facility] LEFT [id number] Physicians [U] XRAY HIP UNILATERAL 2017-05-23 00:00:[address] [facility] MIN 2 VWS RIGHT [id number] Physicians Endoscopic Excision or 2013-02-06 05:00:00 Memor ial Alejandro Destruction of Lesion or Tissue of Esophagus Transfusion of Packed 2013-02-05 05:00:00 Memori al [place] Cells Colonoscopy 2013-01-26 05:00:00 [facility] Her dill Colonoscopy 2013-01-26 05:00:00 [facility] Endoscopic Excision or 2013-01-26 05:00:00 Memor ial Alejandro Destruction of Lesion or Tissue of Esophagus Transfusion of Packed 2013-01-24 05:00:00 Memori al [place] Cells Appendectomy [facility] [place] Cholecystectomy [facility] Hysterectomy [facility] [place] Laminectomy [facility] [place] 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 shunt Appendectomy [facility] [place] Hysterectomy [facility] Plan of Care Planned Activity Planned Date Details Comments Source Future Scheduled 2019-12-22 INFLUENZA VACCINE (#1) [facility] Test 00:[facility]:00 [code = INFLUENZA Medical Ce nter VACCINE (#1)] Future Scheduled 2016-11-[address] [facility] 00[facility]00[facility]00 [facility] (procedure) [code = 41534484] Future Scheduled 2014-04-[address] [facility] - Test 00:00:00 WELLNESS (YEAR 2 or Medical Center FIRST YEAR if no IPPE) [code = MEDICARE ANNUAL WELLNESS (YEAR 2 or FIRST YEAR if no IPPE)] Future Scheduled 2007-12-31 PNEUMOCOCCAL 65+ YRS [facility] - Test 00:00:00 (2 of 2 - PPSV23) Medical Ce nter [code = PNEUMOCOCCAL 65+ YRS (2 of 2 - PPSV23)] Future Scheduled 1950 DIABETIC EYE EXAM [facility] - Test 00:00:00 [code = DIABETIC EYE Medical Center EXAM] Future Scheduled [address] [facility] Test 00:[facility]00 examination Medical Center (regime/therapy) [code = 766490845] Future Scheduled 1950 Urine screening for [facility] - Test 00:00:00 protein (procedure) Medical Center [code = 759190091] Encounters Start End Encounter Admission Attending Care Care Encounter Source Date/Time Date/Time Type Type Clinicians Facility Department ID 2020-01-27 Outpatient SYSTEM, MDA MDA [id number] 14:21:23 PROVIDER Dmitriy o darinel 2019-11-19 Outpatient MDA MDA [id number] 11:55:51 Andadalido darniel 2020-03-04 2020-03-04 Outpatient EL LE, PHAT MDA MDA [id number] 10:30:00 10:30:00 Dmitriy o darinel 2020-03-02 2020-03-02 Outpatient INDER BALDWIN MDA MDA [id number] 14:49:46 23:59:00 Dmitriy o n 2020-02-26 2020-02-26 Outpatient INDER BALDWIN MDA MDA [id number] 13:40:27 23:59:00 Dmitriy o darinel 2020-02-26 2020-02-26 Outpatient INDER BALDWIN MDA MDA [id number] 13:14:59 13:39:00 Dmitriy o n 2020-01-29 2020-01-29 Outpatient EL LE, PHAT MDA MDA [id number] 11:37:09 11:56:54 Dmitriy o n 2020-01-26 2020-01-26 Outpatient INDER WHITNEY MDA MDA [id number] 14:35:56 14:35:56 Dmitriy o n 2020-01-26 2020-01-26 Outpatient LE, PHAT MDA MDA [id number] 11:52:43 11:52:43 Dmitriy o n 2020-01-26 2020-01-26 Outpatient LE, PHAT MDA MDA [id number] 11:52:40 11:52:40 Dmitriy o n 2020-01-26 2020-01-26 Outpatient LE, PHAT MDA MDA [id number] 11:52:38 11:52:38 Dmitriy o n 2020-01-26 2020-01-26 Outpatient LE, PHAT MDA MDA [id number] 11:52:36 11:52:36 Dmitriy o darinel 2020-01-26 2020-01-26 Outpatient LE, PHAT MDA MDA [id number] 11:52:33 11:52:33 Dmitriy tena 2019-11-23 2019-11-23 Outpatient EL LE, PHAT MDA MDA [id number] 00:00:00 00:00:00 Dmitriy o darinel 2019-11-19 2019-11-19 Outpatient EL LE, PHAT MDA MDA [id number] 15:19:54 15:19:54 Dmitriy o darinel 2019-11-19 2019-11-19 Outpatient EL BUNNY, MDA MDA [id number] MD 15:02:03 15:18:13 MACHELLE tena 2019-11-19 2019-11-19 Outpatient EL HALLADAY, MDA MDA [id number] 11:25:38 11:25:38 MARINA tena 2019-11-19 2019-11-19 Outpatient EL HALLADAY, MDA MDA [id number] 00:00:00 00:00:00 MARINA Hopeers o darinel 2019-11-19 2019-11-19 Outpatient EL LE, PHAT MDA MDA [id number] 00:00:00 00:00:00 Dmitriy o darinel 2019-11-06 2019-11-06 Outpatient EL HALLADAY, MDA MDA [id number] 00:00:00 00:00:00 MARINA Izaguirre o darinel 2019-11-06 2019-11-06 Outpatient EL BUNNY, MDA MDA [id number] 00:00:00 00:00:00 MACHELLE Hopeers o darinel 2019-11-06 2019-11-06 Outpatient EL LE, PHAT MDA MDA [id number] 00:00:00 00:00:00 Dmitriy o darinel 2019-11-05 2019-11-05 Outpatient EL HALLADAY, MDA MDA [id number] 00:00:00 00:00:00 MARINA tena 2019-11-05 2019-11-05 Outpatient EL LE, PHAT MDA MDA [id number] 00:00:00 00:00:00 Dmitriy o darinel 2019-11-05 2019-11-05 Outpatient EL BUNNY, MDA MDA [id number] 00:00:00 00:00:00 MACHELLE Hopeers o darinel 2019-11-05 2019-11-05 Outpatient EL HALLADAY, MDA MDA [id number] 00:00:00 00:00:00 MARINA tena 2019-11-05 2019-11-05 Outpatient EL LE, PHAT MDA MDA [id number] 00:00:00 00:00:00 Dmitriy tena 2019-11-05 2019-11-05 Outpatient EL BUNNY, MDA MDA [id number] 00:00:00 00:00:00 MACHELLE Hopeers milton tena 2019-10-27 2019-10-27 Office anti, BCM [id number] 12:40:52 14:00:56 Visit Lizett Canseco AMBULATOR [id number] Y [id number] 2019-01-14 2019-01-14 [facility] [id number] Univers 13:15:00 13:15:00 t; MILAGROS MENON Trauma ity o f ANDREW, M.D. [facility] 2019-01-07 2019-01-07 [facility] [id number] Univers 13:00:00 13:00:00 t; MILAGROS MENON Trauma ity o f ANDREW, M.D. [facility] 2018-01-08 2018-01-08 [facility] [id number] Univers 13:00:00 13:00:00 t; MILAGROS MENON ity o f ANDREW, M.D. [facility] 2018-01-01 2018-01-01 [facility] [id number] Univers 13:00:00 13:00:00 t; MILAGROS MENON ity o f ANDREW, M.D. [facility] 2017-08-28 2017-08-28 [facility] [id number] Univers 13:00:00 13:00:00 t; MILAGROS MENON ity o f ANDREW, M.D. [facility].D. Physici ans 2017-05-29 2017-05-29 Appointmen [facility] [id number] Univers 13:00:00 13:00:00 t; MILAGROS MENON ity o f [facility]REW[facility]. [facility] 2017-02-27 2017-02-27 Appointmen ANN MENON UTP [id number] Univers 13:00:00 13:00:00 t; MILAGROS MENON ity o f ANDREW, [facility]. [facility] 2017-01-30 2017-01-30 Appointmen ANN QUIROZ UTP [id number] Univers 13:15:00 13:15:00 t; SURAJ QUIROZ NP ity of [place]AM[place], NP [place] [facility] ans 2017-01-29 2017-01-29 Outpatient Lynsey, [id number] 11:10:00 23:59:00 Milagros Duarte [id number] 2017-01-04 2017-01-11 Outpatient Kim, [facility] [id number] 03:38:00 15:18:00 Mary Claros 2013-02-04 2013-02-10 Outpatient MHIE MHIE [id number] Memoria 19:02:00 12:10:00 01 [facility] 2013-02-04 2013-02-10 Outpatient MHIE MHIE [id number] Memoria 19:02:00 12:10:00 01 [facility] 2013-02-04 2013-02-10 Outpatient MHIE MHIE [id number] Memoria 19:02:00 12:10:00 01 [facility] 2013-02-04 2013-02-10 Outpatient MHIE MHIE [id number] Memoria 19:02:00 12:10:00 01 [facility] 2013-02-04 2013-02-10 Outpatient [facility] [id number] 19:02:00 12:10:00 01 [facility] 2013-01-23 2013-01-27 [id number] 19:17:00 18:20:00 00 [facility] 2013-01-23 2013-01-27 Outpatient [facility] IE [id number] 19:17:00 18:20:00 00 [facility] 2013-01-23 2013-01-27 [facility] [id number] [address] [place] [address] 19:17:00 18:20:00 00 [facility] Results Test Description Test Time Test Comments Results Result Sourc e Comments Paracentesis 2020-03-02 MD Dorothy Delgado nderson 21:00:00 PA 03/02/2020 4:31 PMParacentesis Date/Time: 03/02/2020 4:30 PMPerformed by: Kalani Longo PAAuthorized by: Inder Whitney NP Consent: Consent obtained: Written Consent given by: Patient Risks discussed: Bleeding, bowel perforation, infection and pain Alternatives discussed: No treatment and observationPre-proc edure details: Procedure purpose: Therapeutic Preparation: Patient was prepped and draped in usual sterile fashion Anesthesia (see MAR for exact dosages): Anesthesia method: Local infiltration Local anesthetic: Lidocaine 1% w/o epiProcedure details: Patient position: Supine Puncture site: L lower quadrant Puncture method: [id number] catheter Ultrasound guidance: yes (ultrasound was used for the procedure but currently, there is no ability to capture and save images.) Indwelling catheter placed: No Catheter size: 5F. Fluid removed amount: 5 Liters Fluid appearance: Yara Dressing: Adhesive bandagePost-procedu re details: Specimen(s) removed: No Estimated blood lost: None Complications: No Patient tolerance of procedure: Tolerated well, no immediate complicationsCommen ts: Blood Pressure was checked immediately prior to procedure as well as after each liter bottle and remained stable throughout.Patient reported symptomatic improvement. Catheter stopped flowing about custodial through and a new onestep catheter had to be inserted in the same location. Cytology Non-Keyboard Instrument Tuner Interpretation 2020-03-01 18:44:00 Test Item Value Reference Range Interpretation Comme nts Major Classification (test code = 9839) NFMC/benign Diagnosis (test code = 34) e7xkeUEdDULxdAS8QnYsCPLyf5ydg5GjyQCuyNJ pEEqguRNexhXrhy45iVI6qK74DI3qARGaLiO8WN NwbfM3Qhz3AUQdYLBgbBCxF260x9ehm0xgwpPim DP9aVtlIHJpEYZtPOasYJArGxCfwPRaUYImSBUm Y8y8tRQaEes1jTZeHHTjbhQnQZ75BJNyurnnhXA sYWYacen5KTUxOz8vqGMzxAlgUP93BFNelQtjAY djLV18bTMhFVFnZVFeantvBCUfyUSuiZ== Informational Points (test code = 9836) c2xhbOQuWTGrvLElHzIr IWGgHAYbj9ouZBZreLE bFcWoNxSnKmDkOkyhsRUsHLWfWyVzq9qje852gZ All7ddSSTvBkF1nAGtCFNtnAWnZ941JXQsXSiha 5myy3HcOUBedEZbs5Y2CKTWUFddNJOVBXq0t1al IvLbUjD7bDXdJDrpK2cgbnInqSBmWUArVEk9uS7 3LTWzlI3vvIPhDDwnjsEyGoZ3UTfoTTPaIgD3RV EmoBQeQCRcS5uwZFHgXKklCJNtJDilkHNyTWC7p Xliu0F1oMQctGOksTvbPuDcDwCvItGKs3DnXFd7 jEenY3ZyBPDfSsP2aYDpHNPmJTzxNCJkVNYdsjT 6qH91YRgatmU8nYZoa4Aer08qf319hL4ttTPxLE B1RZVhPOOrnLRdWTRkNNL6KGWpoYOkF2qrRKAcB Y2akgtiFGrpSRmsXZEznKG5KWFzuBFsK4SsDAPz OIxsKFVpkpf0IeAjMq9jlZHbzCtlIDxof6ybu9i chUCyBnp1JSOgOdYeEzfeCMqsi9Pej0wtHVLihq 8rOXU2rQGdqDoog5X9nZWgZUZiyYDzxvEhFHQrE kQ8TGkhXS4fqj60FSMwXQT1xw6toBWfcWpenhOk jYByDYkeA3YtSAJpf962TMDbN2SmILJfi0H0pgC tMeNpPPXtcJZ8laT7UMSlWYi4kHFjucE7ieBdvX RtG1jdvK8yUGLwGX1fejyrx1ccHZpiYWnfPWUmv QO0mhL4TCGuoQAtH2HomZ4bTINmHYfkXHFfbti4 ArZnMz0isWMtiRxvXVqzKhbcDYerDHLxfpSqobN ccGduZGVjXHBsYWluXHBsYWluXGYwXGZzMjRccW hqvYlgbP9lIbXzAnTwUVxdDS4mYVMoL8owrJPlE VKtVLGtG0rtTtDnsW4uzWewAFkbcrV3ECnzT08h BCX8DHQ8usLpJXWftaViXOKaQLCqUN2faCUwTUH yIUPrGT3hIBX1QRmoqQDuWQUcEIPrXKSav9HpFD 2bMGIbbNStYVM5STTxo9YuU0OaLWF6LSYxwY9cX MKknOTGJZRIYDFFevVaycLvzcVTYERqd7hfO7ze IC0yTOnoWx2cWXIpgnsfSYParGHtlvUsEOZkTDT gPELud2SpLYirpuWvcg15RIKlPI1qz0FzL8bfyY AuwZq6NFVbFVPgVNDwz2IxGHClew07GQMvThmmj MidTQYkXo7dNp4yVTWsqxYeMBR4VjUTZR9koyjp dXDfyOhvla6uPXZuRWdtAFInEPSiMiZdqDLaHeE sEbCbqMspnPppIlnvEuHnQPGsOCdgW4iqToTyOt MyMlxwYXJ9 MD GalvezFractionated [id number] 20:35:53 Test Item Value Reference Range Interpretation Comments Bili Total (test code 2.5 mg/dL <=1.2 H Indocy anine Green = 5096) (ICG) may cause falsely elevate d bilirubin resul ts. Total and direc t bilirubin must not be measured fro m samples contain ing indocyanine gre en. False elevation of total bilirubin can be seen in adeel ents with IgG concentrations above 28 g/L. Bili Direct (test 1.2 mg/dL <=0.3 H Indocyanin e Green code = 5094) (ICG) may cause falsely elevate d bilirubin resul ts. Total and direc t bilirubin must not be measured fro m samples contain ing indocyanine gre en. Bili Indirect (test 1.3 mg/dL 0-0.9 H code = 5095) ANIL (test code = ANIL) Please schedule an hour prior to the procedure. thanks Lab Interpretation Abnormal (test code = 36343-8) MD GalvezCalcium [id number] 20:35:52 Test Item Value Reference Range Interpretation Comments Calcium Lvl (test code = 8.2 mg/dL 8.4-10.2 L 5258) ANIL (test code = ANIL) Please schedule an hour prior to the procedure. thanks Lab Interpretation (test Abnormal code = 50488-3) MD GalvezAlbumin Pfwdp6094-11-26 20:35:51 Test Item Value Reference Range Interpretation Comments Albumin Lvl (test code = 2.7 3.5- 5.2 gm/dL L 4763) ANIL (test code = ANIL) Please schedule an hour prior to the procedure. thanks Lab Interpretation (test Abnormal code = 51828-8) MD GalvezAspartate Nypqmmlobmycpuvd7796-53-11 20:35:50 Test Item Value Reference Range Interpretation Comments AST (test code = 4731) 54 U/L <=32 H ANIL (test code = ANIL) Please schedule an hour prior to the procedure. thanks Lab Interpretation (test Abnormal code = 46983-5) MD GalvezElectrolyte [id number] 20:35:48 Test Item Value Reference Range Interpretation Comments Sodium Lvl (test code = 128 136- 145 mEq/L L 7355) Potassium Lvl (test code = 3.8 3.5- 5.1 mEq/L 6854) Chloride (test code = 93 98- 107 mEq/L L 5279) CO2 (test code = 5227) 19 22- 29 mEq/L L Anion Gap (test code = 16 4- 14 mEq/L H 9325) ANIL (test code = ANIL) Please schedule an hour prior to the procedure. thanks Lab Interpretation (test Abnormal code = 98794-9) MD GalvezGlomerular Filtration [id number] 20:35:47 Test Item Value Reference Range Interpretation Comments eGFR-AA (test 103 >=60 mL/min/1.73 Normal eGF R: >= 60 code = 8062) sq. m mL/min/1.73 m2N ote: The eGFR is stephenie culated using the CKD-E PI equation. The e GFR declines with a ge. eGFR <60 mL/min /1.73 m2 is considere d as "decreased". Th is equation should only be used for pat ients 18 and older. According to vijaya crouch [employer] Kid[employer]'s Ki dney Disease Outcome Quality Initiat denise (KDOQI) classif ication and 2012 Kidney Disease Improvi ng Global Outcomes (KDIGO) Clinica l Practice Guidel ine, the stage of CK D should be categ orized based on estima dave GFR. Stage Desc ription GFR mL/mi n/1.73 m21 Normal or h igh GFR >=902 Mildly decreased GFR 60-893a M ildly to moderately decreased GFR 45-593b Moderat lisa to severely decrea sed GFR 30-444 Emmie rely decreased GFR 15-295 Kidney f ailure <15 eGFR-TIMMY 90 >=60 mL/min/1.73 Normal eGFR : >= 60 (test code = sq. m mL/min/1.73 m2N ote: 8063) The eGFR is stephenie culated using the CKD-E PI equation. The e GFR declines with a ge. eGFR <60 mL/min /1.73 m2 is considere d as "decreased". Th is equation should only be used for pat ients 18 and older. According to vijaya crouch [employer]'s Ki dney Disease Outcome Quality Initiat denise (KDOQI) classif ication and 2012 Kidney Disease Improvi ng Global Outcomes (KDIGO) Clinica l Practice Guidel ine, the stage of CK D should be categ orized based on estima dave GFR. Stage Desc ription GFR mL/mi n/1.73 m21 Normal or h igh GFR >=902 Mildly decreased GFR 60-893a M ildly to moderately decreased GFR 45-593b Moderat lisa to severely decrea sed GFR 30-444 Emmie rely decreased GFR 15-295 Kidney f ailure <15 ANIL (test Please schedule code = ANIL) an hour prior to the procedure. thanks MD GalvezGlucose [id number] 20:35:46 Test Item Value Reference Range Interpretation Comments Glucose Level (test 273 mg/dL 70-99 H Referenc e range is code = 5699) valid for fasti ng specimens only. Guidelines established by the [place] [employer] guidelines (Standards of Medical Care in Diabetes 2016. Diabetes Care 2016; 39: S13-2 2) are that a fast ing glucose of grea ter than or equal t o 126 mg/dL or a random glucose greater than or equal to 200 mg /dL with symptoms, that are confir med by repeat testi ng on a different day, meet the criteria for diabetes mellit us. ANIL (test code = ANIL) Please schedule an hour prior to the procedure. thanks Lab Interpretation Abnormal (test code = 77030-3) MD GalvezTotal Qtcwgpn4261-72-31 20:35:45 Test Item Value Reference Range Interpretation Comments Total Protein (test 6.7 g/dL 6.4-8.3 code = 7649) ANIL (test code = ANIL) Please schedule an hour prior to the procedure. thanks MD GalvezMagnesium Htygv4231-51-69 20:35:44 Test Item Value Reference Range Interpretation Comments Magnesium (test code = 1.9 mg/dL 1.6-2.6 6359) ANIL (test code = ANIL) Please schedule an hour prior to the procedure. thanks MD GalvezAlkaline Plqoctcfixk6278-16-91 20:35:43 Test Item Value Reference Range Interpretation Comments Alk Phos (test code = 135 U/L 35-104 H 4768) ANIL (test code = ANIL) Please schedule an hour prior to the procedure. thanks Lab Interpretation (test Abnormal code = 79175-4) MD GalvezPpjjjkngSGV2063-87-64 20:35:41 Test Item Value Reference Range Interpretation Comments ALT (test code = 22 U/L <=33 4705) ANIL (test code = ANIL) Please schedule an hour prior to the procedure. thanks MD Galvez.Serum Ydtbugvqdi6016-35-00 20:35:40 Test Item Value Reference Range Interpretation Comments Creatinine (test code = 0.57 mg/dL 0.51-0.95 5399) ANIL (test code = ANIL) Please schedule an hour prior to the procedure. thanks MD GalvezEjnsrwwiPIL5278-54-29 20:35:39 Test Item Value Reference Range Interpretation Comments BUN (test code = 9 mg/dL 6- 5055) ANIL (test code = ANIL) Please schedule an hour prior to the procedure. thanks MD GalvezPartial Thromboplastin Hwyc0634-65-17 20:34:26 Test Item Value Reference Range Interpretation Comments PTT (test code = 35.4 24.2- 36.0 second(s) 6773) ANIL (test code = Please schedule an hour ANIL) prior to the procedure. thanksThis lab cannot be scheduled at the following locations due to collection/proccessing restrictions: [facility] and [facility]. MD GalvezPT/[id number] 20:34:25 Test Item Value Reference Range Interpretation Comments PT (test code = 6746) 20.6 12.0- 14.3 H second(s) INR (test code = 5973) 1.81 0.90-1.10 H ANIL (test code = ANIL) Please schedule an hour prior to the procedure. thanksThis lab cannot be scheduled at the following locations due to collection/proccess ing restrictions: [facility] and [facility]. Lab Interpretation (test Abnormal code = 24836-9) MD GalvezYxbbuxzeMomwfbmpwtiy4896-52-57 20:20:00JHONY Wood 02/26/2020 3:25 PMParacentesis Date/Time: 02/26/2020 3:23 PMPerformed by: Bonilla Camacho, PAAuthorized by: Inder Whitney NP Consent: Consent obtained: Written Consent given by: Patient Risks discussed: Bleeding, bowel perforation, infection and pain Alternatives discussed: No treatment, delayed treatment, observation and alternative treatmentPre-procedure details: Procedure purpose: Therapeutic Preparation: Patient was prepped and draped in usual sterile fashion Anesthesia (see MAR for exact dosages): Anesthesia method: Local infiltration Local anesthetic: Lidocaine 1% w/o epiProcedure details: Puncture site: L lower quadrant Puncture method: Bwxe-wnw-khczlz catheter Ultrasound guidance: yes Indwelling catheter placed: No Catheter size: 5F. Fluid removed amount: 5000mL Fluid appearance: Yellow Dressing: Adhesive bandagePost-procedure details: Specimen(s) removed: Yes Specimen collected: Specimen sent to cytology transport jobnumber [id number] Estimated blood lost: None Complications: No Patient tolerance of procedure: Tolerated well, no immediate complicationsComments: Blood pressure was checked prior to procedure and each liter and remained stable throughout.MD GalvezDifferential 2020-02-26 19:55:35 Test Item Value Reference Range Interpretation Comments Neutrophil % (test 84.9 % 42-66 H code = 45085-3) Lymphocyte % (test 5.5 % 24-44 L code = 737-7) Monocyte % (test code 8.8 % 2-7 H = 744-3) Eosinophil % (test 0.1 % 1-4 L code = 713-8) Basophil % (test code 0.2 % 0-1 = 707-0) IGRE % (test code = 0.5 % 0-0.4 H IGRE % c ount 55687-4) includes Metamyelocytes, Myelocytes, and Promyelocytes. Neutrophil Abs (test 12.13 K/uL 1.7-7.3 H code = 753-4) Lymphocyte Abs (test 0.78 K/uL 1-4.8 L code = 732-8) Monocyte Abs (test 1.26 K/uL 0.08-0.7 H code = 743-5) Eosinophil Abs (test 0.01 K/uL 0.04-0.4 L code = 712-0) Basophil Abs (test 0.03 K/uL 0-0.1 code = 705-4) IG Abs (test code = 0.07 K/uL 0-0.04 H 95899-7) ANIL (test code = ANIL) Please schedule an hour prior to the procedure. thanks Lab Interpretation Abnormal (test code = 40441-5) MD Galvez.[id number] 19:55:29 Test Item Value Reference Range Interpretation Comments WBC (test code = 14.3 K/uL 4-11 H 6690-2) RBC (test code = 4.59 4.00- 5.50 M/uL 789-8) Hgb (test code = 13.6 12.0- 16.0 718-7) gm/dL Hct (test code = 40.6 % 37-47 4544-3) MPV (test code = 10.1 fL 4-10.4 787-2) MCH (test code = 29.6 pg 27-31 785-6) MCHC (test code = 33.5 31.0- 36.0 786-4) gm/dL RDW-SD (test code = 50.1 fL 35.1-46.3 H 11911-4) RDW-CV (test code = 15.7 % 12-15.5 H 788-0) Platelet count (test 188 K/uL 140-440 code = 777-3) INRBC (test code = 0.0 % <=0.0 The INRBC 5974) (instrument NRB C) value reflects the enumerationof nucleated red b lood cells contained in a 200uL sampleo f whole blood analyzed by the instrument. Thi s value maydiffer from the NRBC v alue reported in a manual differential,wh ich is based on a 1 00 cell differenti al. ANIL (test code = ANIL) Please schedule an hour prior to the procedure. thanks Lab Interpretation Abnormal (test code = 57657-3) MD GalvezOSI CT CHEST ABDOMEN [id number] 16:14:221. Increasing sizes of liver tumors in liver segment 6 and 7 compared to 11/19/2019. 2. Cirrhotic liver with evidence of portal hypertension. A TIPS shunt is seen in place but I cannot determine the patency of this shunt on this arterial phase only imaging. 3. There is a small volume of ascites throughout the abdomen and pelvis with soft tissue stranding and nodularity in the peritoneal cavity raising suspicion for carcinomatosis. However some of this nodularity may be due to varices. There is an unusual enhancing mass of uncertain etiology in the anterior peritoneal cavity of the pelvis near theumbilicus that either represents a conglomerate of varices or possibly a metastasis.Interface, Radiology Results In - 01/28/2020 11:16 AM CDTFULL RESULT:Examination: OSI CT CHEST ABDOMEN PELVIS on 01/19/2020 2:38 PMClinical History: Cancer of liverCholangiocarcinomaIndication: Concerned about an alternative diagnosis.Comparison: MRI examination of the abdomen on 11/19/[address] examination of thorax on 01/08/2019Technique: Following intravenous and oral contrast, CT examination the chest abdomen and pelvis was performed using liver protocol.Findings: CT thorax:Minimal atelectasis is seen in the right lung base on image 51 of series 401 that is improved compared to prior exam. No pulmonary masses are identified.The heart and great vessels are normal.No mediastinal or axillary lymphadenopathy is seen.Mild degenerative changes are seen in the skeleton.CT abdomen/pelvis:A 28 x 29 mm metastasis is seen in liver segment 7 possibly extending through the diaphragm on image 60 of series 401 that previously measured 21 x 25 mm. A larger necrotic mass is seen in liver segment 6 on image 87 of series 401 that measures 72 x 73 mm and previously measured 54 x 59 mm. Only an arterial phase of imaging is available for review. No portal venous or delayed phases are presented. No additional liver lesions are seen on this arterial phase imaging.A TIPS shunt is seen in place. I cannot accurately determine the shunt patency on this arterial phase only imaging.The liver has an extremely nodular contour compatible with cirrhosis.The gallbladder has been resected. The pancreas, spleen, adrenals and functioning kidneys bilaterally are normal.The abdominal aorta has mild atherosclerosis.The urinary bladder is normal. The patient is status post hysterectomy.The bowel is normal.There is a small volume of ascites throughout the abdomen and pelvis. Soft tissue stranding and nodularity is seen throughout the anteriorperitoneal cavity raising suspicion for carcinomatosis although some of this nodularity may be due to varices associated with the portal hypertension.There is an unusual enhancing nodule in the anterior peritoneal cavity of the pelvis near the umbilicus on image 137 of series 401 that either represents a peritoneal metastasis or possibly a conglomerate of varices.A left hip replacement is seen that produces streak artifact in pelvis. Moderate degenerative changes are seen throughout the remainder the skeleton.IMPRESSION:1. Increasing sizes of liver tumors in liver segment 6 and 7 compared to 11/19/2019.2. Cirrhotic liver with evidence of portal hypertension. A TIPS shunt is seen in place but I cannot determine the patency of this shunt on this arterial phase only imaging.3. There is a small volume of ascites throughout the abdomen and pelvis with soft tissue stranding and nodularity in the peritoneal cavity raising suspicion for carcinomatosis. However some of this nodularity may be due to varices. There is an unusual enhancing mass of uncertain etiology in the anterior peritoneal cavity of the pelvis near the umbilicus that either represents a conglomerate of varices or possibly a metastasis.MD [facility]DEL[facility] [id number] 17:08:32For comparison only. No interpretation requested.MD [facility]vezDEL[facility] CT [id number] 17:07:30For comparison only. No interpretation requested.MD Gal[facility] Abdomen with and without Fwrfrait4006-26-73 19:42:331. Decreasing dominant mass in segments 6 and [...] in March 2016, status post segment 7/8 lesionembolization on 04/09/2016, repeat embolization of the same lesion on 08/10/2016. Y-90 radioembolization and selective bland embolization of the new segment 6 and 7 lesions on 12/04/2018.Indication: mixed HCC/cholangio. Restaging..Comparison: MRI 03/12/2019.Technique: MRI ABDOMEN W WO CONTRAST Findings:Minimal subsegmental atelectasis. Minimal perihepatic ascites. The lung bases are otherwise unremarkable.The liver remains diffusely and markedly lobulated with innumerable nodular densities, compatiblewith underlying cirrhosis, grossly unchanged. There are several [...] 9, image 35 series 15) could be cholangiocarcinomacomponent and post treatment change. Note the enhancing nodular density at the superior aspect (image 23 series 9) associated with a delayed washout, compatible with hepatocellular carcinoma component.This particular density has increased significantly. This component measures approximately 2.5 x 2.1cm in its greatest cross-sectional dimension (image 20 series 11). This was barely 1 cm on the exam of 02/2019.A TIPS shunt remains in place but without evidence of enhancement or flow void, new from pr ior study. A filling defect is also noted [...] physically present, and agree with the final report.MD Tapia, BONE DENSITY STUDY 2019-10-28 10:00:00Reason for Exam:->Compression fracture of lumbar vertebra with routine healing, unspecified lumbar vertebral level, subsequent encounter Osteopenia, unspecified location,FINAL REPORT EXAM: Bone mineral density study HISTORY: Compression fracture of lumbar vertebra with routine healing, unspecified lumbar vertebral level, subsequent encounter Oste openia, unspecified location, COMPARISON: Previous DEXA 07/13/2016. Baseline DEXA 07/13/2016 (lumbar spine and right hip only) DISCUSSION: Evaluation of the left forearm, right hip, and lumbar spine wasperformed. The study is technically adequate.The patient's fracture risk is compared to an age-matched control.The patient indicates previous hip or vertebral fracture. LEFT FOREARM*Proximal 1/3 bonemineral density: 0.553 gm/cm2, T-score is -2.3, Z-score is 0.4. *No previous for comparison RIGHT HIP*Femoral neck bone mineral density: 0.598 gm/cm2, T-score is -2.3, Z-score is -0.1. *Total bone mineral density: 0.834 gm/cm2, T-score is -0.9, Z-score is 1.0. *BMD change versus previous is - 0.168 gm/cm2 LUMBAR SPINE*Total bone mineral density: 1.139 [...] Mora Verified Date/Time: 10/28/2019 10:00:07 Reading Location: [place] [address] XR DXA Bone Density [id number] 10:00:00Interface, External Ris In - 10/28/2019 10:02 AM CDTFINAL REPORT EXAM: Bone mineral density study HISTORY: [...] mineral density: 1.139 gm/cm2, T-score is 0.8, Z- score is 3.3. *BMD change versus previous is [...] loss of bone mineral density of the lumbarspine and right hip. WHO classification is unchanged: normal compared to young adults for the lumbarspine and osteopenic compared to young adults at the right hip. Signed: Bella Mora Verified Date/Time: 10/28/2019 10:00:07 Reading Location: [facility] Reading Room [address] [place] [address] signed by: BELLA MORA MD on 10/28/2019 10:00 [facility][U] XRAY HIP UNILATERAL MIN 2 VWS LEFT [id number] 13:01:00 Images acquired, not reported on this accession number.[facility] W/PLT COUNT & AUTO [id number] 15:08:00 Test Item Value Reference Range Interpretation [...] = 2801) BONE AND/OR JOINT IMAGING, WHOLE [id number] 16:56:00Location->[facility] HospitalFINAL REPORT PROCEDURE: BONE SCAN, WHOLE BODY CPT CODE: 83136 INDICATION: HCC, cirrhosis PROTOCOL: 21.3 mCi of [...] the cervical and lumbar spine favors degenerative slubber frame changer metastatic disease.2.Degenerative changes noted in the axial and appendicular skeleton. 3. There is no metastatic pattern Images for comparison/correlation were CT chest/abdomen 05/2017, MRI abdomen 10/2016, bone scan of 06/2016. Signed: Michael Abernathy MDReport Verified Date/Time: 06/05/2017 16:56:04 Reading Location: [address], ABDOMEN, [id number] 15:02:00Liver Prctocol-Triple PhaseLocation->[facility] HospitalFINAL REPORT CT OF THE CHEST [...] MDReport Verified Date/Time: 06/05/2017 15:02:52 Reading Location: [address] Body Reading Room CT, CHEST, WITHOUT [id number] 15:02:00Location->[facility] HospitalFINAL REPORT CT OF THE CHEST [...] MDReport Verified Date/Time: 06/05/2017 15:02:52 Reading Location: [address] Body Reading Room ALPHA FETOPROTEIN (AFP), TUMOR [id number] 14:15:00 Test Item Value Reference Range Interpretation Comments ALPHA-FETOPROTEIN (BEAKER) (test 7.2 ng/mL <10.0 code = 1094) COMPREHENSIVE METABOLIC [id number] 14:02:00 Test Item Value Reference Range Interpretation [...] 347) EGFR (BEAKER) (test 74 mL/min/1.73 ESTIMA DAVE GFR IS code = 1092) sq m NOT ACCURATE CREATININE CLEARANCE IN PREDICTING GLOMERULAR FILTRATION RATE . ESTIMATED GFR I S NOT APPLICABLE FOR DIALYSIS PATIEN TS. CBC W/PLT COUNT & AUTO [id number] 13:25:00 Test Item Value Reference Range Interpretation [...] 0-1 PERCENT (BEAKER) (test code = 2801) OFNY-[id number] 12:17:00 Test Item Value Reference Range Interpretation Comments POC-CREATININE 0.6 mg/dL 0.6-1.3 TESTED AT [facility] ([facility]) (test [place] code = 7484) [address] POC-EGFR (BEAKER) 98 mL/min/1.73M2 (test code = 2350) CHEM [id number] 08:25:0092[facility]annCHEM [id number] 08:25:003.3 [facility] HermannCHEM [id number] 08:25:40782Cvrssbww HermannCHEM PANEL 2017-01-11 08:25:71157Pvwejrpg HermannCHEM ZLURT6624-09-45 08:25:008.3[facility]annCHEM [id number] 08:25:0012.3[facility]annCHEM WSFGN0073-37-40 08:25:0030[facility] HermannCHEM [id number] 08:25:15931Zrjdipne HermannCHEM SRDEO0388-77-00 08:25:007[facility]annCHEM JSRDI4631-22-49 08:25:000.56 [facility] WupupreSEUWWUPRRO5136-27-59 08:25:00 Test Item Value Reference Range Interpretation Comments PT (test code = PT) 16.1 s 12.0-14.7 [facility] CkkhxvgEVALBTOFHK5333-86-86 08:25:001.26[facility] HermannCHEM PANEL 2017-01-11 05:31:003.0[facility] HermannCHEM [id number] 05:31:001.4[facility] GbsnmlyHEPCTNPRJN3550-20-22 05:31:44834Caayvjsv NpswrevNHZPKSFWCK3321-58-26 05:31:009.2[facility] GhcynchWCPAEOLAOY8235-56-98 05:31:0014.7[facility] EZPTMJVMAS8544-22-07 05:31:0033.9[facility] LkbpinsSPTXJLSHSF6840-64-73 05:31:00 Test Item Value Reference Range Interpretation Comments MCH (test code = MCH) 31.6 pg 27.0-31.0 [facility] IedxpvkPUEENOVLGR8017-38-31 05:31:0093.3[facility] HermannHEMATOLOGY 2017-01-11 05:31:0010.6[facility] JxutstvQXPIZJQOFP8633-49-33 05:31:006.9[facility] SutqnvsNHPVADFXTJ7303-92-28 05:31:0031.2[facility] HgqvxitFMABJLCMBN8952-59-63 05:31:003.34[facility] NfzowrkGOMSMZKXMC9345-76-19 05:31:0056.2[facility] UIUONSFUXE1197-55-76 05:31:0026.0[facility] LkjnaakEHYMNZPZCH1436-44-93 05:31:00 0.2[facility] IzksglgPLOYWOYMFN1661-44-04 05:31:001.8[facility] HermannHEMATOLOGY 2017-01-11 05:31:001.0[facility] XnnpgniUPLIHSGQLE4782-16-44 05:31:000.7[facility] ObhtwtjTCHIYJAHQF0453-37-28 05:31:0014.1[facility] DsnlzqfQVMPRDPSCC1661-08-97 05:31:003.0[facility] PueotupFDMLCVKINR1947-21-91 05:31:003.9[facility] HermannCHEM VURFF1752-53-91 06:35:002.4[facility]annCHEM YIRJG6706-78-50 06:35:001.8 [facility]annCHEM TKIET3992-71-57 06:35:0063[facility] HermannCHEM PANEL 2017-01-10 06:35:0027[facility] HermannCHEM VDTLA6332-15-35 06:35:0099[facility] HermannCHEM MIFXQ5344-41-15 06:35:008.7[facility] HermannCHEM XRFIC7986-30-94 06:35:0013.3[facility] HermannCHEM ETUXG4515-79-29 06:35:75793Xmffudem HermannCHEM OGTFX2898-41-14 06:35:59999Mamjwdyw HermannCHEM DPKXP0332-16-81 06:35:000.91 [facility] NAWDN2242-97-55 06:35:003.3[facility] HermannCHEM PANEL 2017-01-10 06:35:008[facility] AlmfduyGONDEZTGKB4075-73-83 06:35:00 Test Item Value Reference Range Interpretation Comments MCH (test code = MCH) 31.9 pg 27.0-31.0 [facility] JqiucolFAGKATARJQ3203-42-69 06:35:56977Dpcxalil HermannHEMATOLOGY 2017-01-10 06:35:009.4[facility] CrnadmgECBCVIICEJ2688-94-24 06:35:0034.5[facility] IaslfuhMCXBVFLAGR6759-46-04 06:35:0014.8[facility] JakqkfoXMZURILPGC6030-00-68 06:35:0035.1[facility] MewylgmXHRFJEVKFZ2619-00-13 06:35:007.6[facility] UNCUQZVIQT0400-43-02 06:35:003.80[facility] AwdelfcSWCMRPUMMD5664-34-54 06:35:00 12.1[facility] BxkezghDNJKDWRZMB2964-91-51 06:35:0092.5[facility] HermannHEMATOLOGY 2017-01-10 06:35:001.19[facility] DvhncfgFAXRNZMXLW2615-25-84 06:35:00 Test Item Value Reference Range Interpretation Comments PT (test code = PT) 15.4 s 12.0-14.7 [facility] OfhadniKACYCJRSUJ8091-19-22 06:35:0027.4[facility] HermannHEMATOLOGY 2017-01-10 06:35:0013.0[facility] UqoweuhNTYTIVVYRQ3826-71-42 06:35:003.3[facility] StlcvuoGNTMDIOSZP1686-02-25 06:35:0055.8[facility] GgmtdsfODGTGSAVEL8023-67-74 06:35:000.5[facility] GtppbvpDGGEVUMJYE3350-40-83 06:35:002.1[facility] PMKSNSISAU8991-13-00 06:35:001.0[facility] VzlrbpcMOUZKANKYY1428-85-81 06:35:000.3 [facility] DyaoyuqEEAOKNQGFT5082-03-88 06:35:004.2[facility] HermannCHEM PANEL 2017-01-09 11:19:002.5[facility] HermannCHEM CVWMN2184-45-66 11:19:001.6[facility] HermannCHEM AHOJG9491-21-02 11:19:0089[facility] HermannCHEM JYNGW6429-89-49 11:19:008[facility] HermannCHEM UTMMO8730-63-00 11:19:41050Lsujmake HermannCHEM TYEYC0612-11-68 11:19:000.62[facility] HermannCHEM ACDWO2030-98-53 11:19:0098 [facility]annCHEM RTOMR5772-73-13 11:19:0027[facility] HermannCHEM PANEL 2017-01-09 11:19:008.5[facility] HermannCHEM YYXYS7028-51-62 11:19:003.6[facility] HermannCHEM NZYNC7763-67-70 11:19:09608Etaqkjwf HermannCHEM XBEVX9769-02-47 11:19:0013.6[facility] BgugjoxHRUXIUXRYW3655-91-66 11:19:000.1[facility] IORGVZLWLZ3880-92-13 11:19:000.3[facility] OrmuunjNECHYKTVZZ0647-94-17 11:19:001.0 [facility] UnxqvuoSSOGJRCDEE2851-71-63 11:19:002.0[facility] HermannHEMATOLOGY 2017-01-09 11:19:003.8[facility] YptgbroLGGSCHZJFQ4855-07-52 11:19:0013.6[facility] WuiofdpBDDJCTUIKL9347-99-34 11:19:0027.2[facility] VnzlzslKIBHBCEVHE2963-17-42 11:19:004.0[facility] FpypnoiMVWVHHHVEV1442-51-89 11:19:0054.7[facility] CHCVKKOQXQ2090-16-50 11:19:000.7[facility] MwotnmdGWAXFBYIMU7465-22-71 11:19:00 Test Item Value Reference Range Interpretation Comments PT (test code = PT) 15.3 s 12.0-14.7 [facility] XqjzjgnDGMFDKDXMZ3815-70-49 11:19:001.18[facility] HermannHEMATOLOGY 2017-01-09 11:19:49102Gqnxefcm IgmltkbXNHMORAJDQ4553-72-35 11:19:0014.7[facility] MyyvzskVYIEKFCOUO5773-24-99 11:19:009.6[facility] EajtiriMIXYZELOAH1638-44-88 11:19:0034.6[facility] JtnsnmlLHYYQWZAJL2642-42-02 11:19:0092.1[facility] TURJSZRZCG6050-19-74 11:19:0033.2[facility] OdpsmhcGEBWJKHQQX6395-13-37 11:19:00 Test Item Value Reference Range Interpretation Comments MCH (test code = MCH) 31.9 pg 27.0-31.0 [facility] IrezldqXWEDLQZDJZ2098-24-07 11:19:003.60[facility] HermannHEMATOLOGY 2017-01-09 11:19:0011.5[facility] DkaojkwLYBEIMBHSD3256-15-11 11:19:007.2[facility] HermannCHEM TAVRV1190-89-18 01:08:006.2[facility] HermannCHEM RUKRC5508-21-41 01:08:002.7[facility] HermannCHEM VZDDZ3915-62-60 01:08:0024[facility] HermannCHEM JCGFV7645-85-16 01:08:0040[facility] HermannCHEM PTQSP8963-15-69 01:08:01527 [facility]annCHEM OTJSK0872-73-59 01:08:001.8[facility] HermannCHEM PANEL 2017-01-09 01:08:000.4[facility] HermannCHEM BGAGS2917-29-32 01:08:003.5[facility] HermannCHEM ZJJFW0371-92-83 01:08:000.8[facility] HermannCHEM TLFRT8778-91-66 01:08:001.4[facility] PjnwffgPHLUFQIIAW0464-66-80 01:08:000.1[facility] DQIDHQLGBH8715-99-79 01:08:00 Test Item Value Reference Range Interpretation Comments Pos CO Value (test code = Pos CO 0.400 1 Value) [facility] GdhfkqsAYKPCRWAUO4926-74-15 01:08:00Negative 1(01/08/17 8:08 PM)[facility] EhkhwplECTOUPBJKZ8348-24-64 01:08:00 Test Item Value Reference Range Interpretation Comments Pat Od Value (test code = Pat Od 0.082 1 Value) [facility] HermannCHEM KHMEG6398-28-95 17:33:0028.6[facility] HermannPARATHYROID XOZLGTG3312-85-24 17:33:0033.4[facility] HermannCHEM FAURM9554-73-28 11:20:0017 [facility]annCHEM PVVGG8921-47-01 11:20:000.8[facility] HermannCHEM PANEL 2017-01-05 11:20:003.5[facility] HermannCHEM MIFME4030-87-45 11:20:0032[facility] HermannCHEM MGGNR9102-85-99 11:20:41232Muhrbguy HermannCHEM CLBGN5164-66-21 11:20:0058[facility] HermannCHEM KTZFP7752-96-69 11:20:006.3[facility] HermannCHEM DSUIZ8039-60-47 11:20:002.8[facility] HermannCHEM KFMTM3850-92-30 11:20:001.6 [facility] GmwgiifMFLBZGVLEF3607-53-56 11:20:000.1[facility] HermannSPECIAL SVMLBABKG3635-59-63 11:20:008.7[facility] PobokpjGLVULLEJYT7519-05-31 16:27:00 Test Item Value Reference Range Interpretation Comments PTT (test code = PTT) 30.9 s 22.9-35.8 [facility] LRVRF3677-87-31 13:30:000.4[facility] HermannCHEM PANEL 2017-01-04 13:30:001.6[facility] HermannCHEM ISHTF6726-83-60 13:30:000.8[facility] HermannCHEM LRQVQ5512-44-62 13:30:004.0[facility] HermannCHEM PDNVN3834-04-79 13:30:001.2[facility] HermannCHEM OIGBS1132-92-13 13:30:007.4[facility] HermannCHEM MRVUO6483-48-91 13:30:53418Kyhdimpn HermannCHEM FDOXG0294-40-63 13:30:003.4 [facility] HermannCHEM NYCRK9293-15-12 13:30:0039[facility] HermannCHEM PANEL 2017-01-04 13:30:0058[facility]annBL[facility]OD BANK GVMNEVI9080-32-16 10:12:00 Negative (01/04/17 5:12 AM)[facility]QkhktcoWICJTPFYTD5762-78-63 09:39:40 Test Item Value Reference Range Interpretation Comments K-time Rapid (test code = K-time 1.0 min 0.6-2.3 Rapid) [facility] HospitalNqwbpphZZQANHILYB5572-52-27 09:39:40 Test Item Value Reference Range Interpretation Comments ACT (TEG) Rapid (test code = ACT (TEG) 97 s 86-118 Rapid) [facility]OLVPDAPFS3664-84-33 09:39:40 Test Item Value Reference Range Interpretation Comments R-time Rapid (test code = R-time 0.5 min 0.4-0.7 Rapid) [facility] CenterFavdjeyZDIFVLEVSJ4131-71-64 09:39:40 Test Item Value Reference Range Interpretation Comments Split Point Rapid (test code = Split 0.3 min Point Rapid) [facility] CenterEimimqnMDGFZDTRDJ7029-81-16 09:39:40 Test Item Value Reference Range Interpretation Comments Angle Rapid (test code = Angle 78 degrees 64-80 Rapid) [facility] CenterAtcjaxsDOPHCQGXGI1611-12-66 09:39:40 Test Item Value Reference Range Interpretation Comments Max Amplitude Rapid (test code = Max 62 mm 52-71 Amplitude Rapid) [facility] CenterNonbmdoBONDACAHKP5557-77-44 09:39:400.0[facility] 2017-01-04 09:39:408.2[facility] HermannALPHA FETOPROTEIN (AFP), TUMOR MARKER 2016-10-31 15:15:00 Test Item Value Reference Range Interpretation Comments ALPHA-FETOPROTEIN (BEAKER) (test 8.8 ng/mL <10.0 code = 1094) Effective 03/09/2014: Reference Range ChangeNew: <10.0 Previous: 0.0-8.0 COMPREHENSIVE METABOLIC YRDPY0644-14-37 14:52:00 Test Item Value Reference Range Interpretation [...] 347) EGFR (BEAKER) (test 67 mL/min/1.73 ESTIMA DAVE GFR IS code = 1092) sq m NOT ACCURATE CREATININE CLEARANCE IN PREDICTING GLOMERULAR FILTRATION RATE . ESTIMATED GFR I S NOT APPLICABLE FOR DIALYSIS PATIEN TS. PROTHROMBIN TIME/PQC2525-33-64 14:40:00 Test Item Value Reference Range Interpretation [...] K/ L 0.00-0.20 (test code = 417) 0.89NHJL-JCSZGFZHHW5263-10-12 14:11:00 Test Item Value Reference Range Interpretation Comments POC-CREATININE 0.6 mg/dL 0.6-1.3 TESTED AT [facility] [address] (BEAKER) ([place] code = 4459) [address] POC-EGFR (BEAKER) 98 mL/min/1.73M2 (test code = [...] 762) ATYPICAL LYMPHS(BEAKER) (test code Present = 6178) COMPREHENSIVE METABOLIC KCSJH8873-37-70 07:38:00 Test Item Value Reference Range Interpretation [...] hemolyzed EGFR (BEAKER) (test 67 mL/min/1.73 ESTIMA DAVE GFR IS code = 1092) sq m NOT ACCURATE CREATININE CLEARANCE IN PREDICTING GLOMERULAR FILTRATION RATE . ESTIMATED GFR I S NOT APPLICABLE FOR DIALYSIS PATIEN TS. CBC WITH PLATELET COUNT + MANUAL [id number] 07:03:00 Test Item Value Reference Range Interpretation [...] WBC 0-0 (BEAKER) (test code = 413) 0.00PT/XWWD6265-51-78 07:02:00 Test Item Value Reference Range Interpretation [...] 2.5-3.5 for patients with mechanical heart valves.URINE RQINKNA0769-72-74 09:57:00 Test Item Value Reference Range Interpretation Comments CULTURE (BEAKER) (test code = See comment 1095) <10,000 col/mL enteric organisms of >2 types. No further workup performed. Multiple organisms suggestive of colonization or contamination. Repeat collection recommended.>100,000 col/mL skin floraCYTOMEGALOVIRUS ANTIBODY, WJT8878-60-73 15:23:00 Test Item Value Reference Range Interpretation Comments CYTOMEGALOVIRUS IGG ANTIBODY Positive (BEAKER) (test code = 790) CYTOMEGALOVIRUS ANTIBODY, [id number] 15:23:00 Test Item Value Reference Range Interpretation Comments CYTOMEGALOVIRUS IGM ANTIBODY Negative (BEAKER) (test code = 816) URINALYSIS W/ REFLEX URINE XLQOGKU2771-10-21 17:13:00 Test Item Value Reference Range Interpretation [...] code = 2795) ALPHA FETOPROTEIN (AFP), TUMOR IXKKPJ1317-63-51 14:34:00 Test Item Value Reference Range Interpretation Comments ALPHA-FETOPROTEIN (BEAKER) (test 7.2 ng/mL <10.0 code = 1094) Effective 03/09/2014: Reference Range ChangeNew: <10.0 Previous: 0.0-8.0CBC W/PLT COUNT & AUTO RNUSZJIHSCAY1880-27-85 13:34:00 Test Item Value Reference Range Interpretation [...] 0.00-0.20 (test code = 417) 0.00HEPATIC FUNCTION [id number] 13:21:00 Test Item Value Reference Range Interpretation [...] = 39 U/L 6-55 347) BASIC METABOLIC [id number] 13:21:00 Test Item Value Reference Range Interpretation [...] 697) EGFR (BEAKER) (test 69 mL/min/1.73 ESTIMA DAVE GFR IS code = 1092) sq m NOT ACCURATE CREATININE CLEARANCE IN PREDICTING GLOMERULAR FILTRATION RATE . ESTIMATED GFR I S NOT APPLICABLE FOR DIALYSIS PATIEN TS. PROTHROMBIN TIME/[id number] 13:17:00 Test Item Value Reference Range Interpretation [...] Range ChangeNew: <10.0 Previous: 0.0-8.0 COMPREHENSIVE METABOLIC TAWOC6801-15-47 08:04:00 Test Item Value Reference Range Interpretation [...] 347) EGFR (BEAKER) (test 77 mL/min/1.73 ESTIMA DAVE GFR IS code = 1092) sq m NOT ACCURATE CREATININE CLEARANCE IN PREDICTING GLOMERULAR FILTRATION RATE . ESTIMATED GFR I S NOT APPLICABLE FOR DIALYSIS PATIEN TS. CBC W/PLT COUNT & AUTO LGETDJHMBMRS7431-80-20 08:02:00 Test Item Value Reference Range Interpretation [...] L 0.00-0.20 (test code = 417) 0.00PROTHROMBIN TIME/YSS1034-57-13 07:57:00 Test Item Value Reference Range Interpretation [...] Range ChangeNew: <10.0 Previous: 0.0-8.0 HEPATIC FUNCTION [id number] 17:38:00 Test Item Value Reference Range Interpretation [...] = 29 U/L 6-55 347) BASIC METABOLIC [id number] 17:38:00 Test Item Value Reference Range Interpretation [...] 697) EGFR (BEAKER) (test 54 mL/min/1.73 ESTIMA DAVE GFR IS code = 1092) sq m NOT ACCURATE CREATININE CLEARANCE IN PREDICTING GLOMERULAR FILTRATION RATE . ESTIMATED GFR I S NOT APPLICABLE FOR DIALYSIS PATIEN TS. COMPREHENSIVE METABOLIC [id number] 17:38:00 Test Item Value Reference Range Interpretation [...] 347) EGFR (BEAKER) (test 54 mL/min/1.73 ESTIMA DAVE GFR IS code = 1092) sq m NOT ACCURATE CREATININE CLEARANCE IN PREDICTING GLOMERULAR FILTRATION RATE . ESTIMATED GFR I S NOT APPLICABLE FOR DIALYSIS PATIEN TS. CBC W/PLT COUNT & AUTO [id number] 17:14:00 Test Item Value Reference Range Interpretation [...] L 0.00-0.20 (test code = 417) 0.00PROTHROMBIN TIME/[id number] 17:14:00 Test Item Value Reference Range Interpretation Comments PROTIME (BEAKER) (test code = 15.4 seconds 11.7-14.7 H 759) INR (BEAKER) (test code = 370) 1.2 <=5.9 RECOMMENDED COUMADIN/WARFARIN INR THERAPY RANGESSTANDARD DOSE: 2.0 - 3.0 Includes: PROPHYLAXIS forvenous thrombosis, systemic embolization; TREATMENT for venous thrombosis and/or pulmonary embolus.HIGH RISK: Target INR is 2.5-3.5 for patients with mechanical heart valves.POCT-GLUCOSE [id number] 07:44:00 Test Item Value Reference Range Interpretation Comments POC-GLUCOSE METER 373 mg/dL 70-110 H TESTED AT [facility] [address] ([facility]) (test code = [place] 1537) [address] GUNJAN TITER AND XXKGQJX2750-04-06 13:43:00 Test Item Value Reference Range Interpretation Comments GUNJAN TITER (AKER) (test code = :640 1541) GUNJAN PATTERN ([facility]) (test code = Speckled 1781) ANTI-NUCLEAR ANTIBODY (GUNJAN)2016-06-06 13:37:00 Test Item Value Reference Range Interpretation Comments ANTI-NUCLEAR ANTIBODY (GUNJAN) (BEAKER) Positive Negative A (test code = 418) BEDSIDE GLUCOSE KDMULSI3608-48-65 10:39:81074Uabukicl HnnrgjjDRXSWZKFC9833-81-20 08:37:0012.3[facility] DbxgbpyDCSSFLTYL3481-68-82 08:37:0093[facility] TLCERPRGE0211-03-97 08:37:000.6[facility] TffscakARZWLNPFW6514-36-37 08:37:002 [facility] CvdjteuGWMNAUNBM5258-92-20 08:37:11800Kybkjnrj HermannCHEMISTRY 2013-02-10 08:37:008.1[facility] NjjunlqXLFBSFRMQ1458-50-82 08:37:0029[facility] ShaxwnnUVUZFCQCC5333-13-91 08:37:29464Ebgkoosp MpsnqcsQMNHZQZZE8016-15-76 08:37:38638Wymngdnk JaukyqtUGQKQGHPT2382-92-05 08:37:003.3[facility] NNRMPPMXAW5245-63-95 08:37:007.3[facility] KwzpxtgTYLSRFUXNZ1702-82-86 08:37:00 3.91[facility] ToqeidvTMGXUVGQVV2428-92-58 08:37:0010.4[facility] HermannHEMATOLOGY 2013-02-10 08:37:0032.9[facility] NkoavvqIGCPOYAEWM7011-26-48 08:37:008.5[facility] XiyjfhnIJVHHNDYYI7605-98-71 08:37:0031.6[facility] MlntavxZLXCAMXDXM9202-79-76 08:37:0019.2[facility] FhvuwriRNMZBLYMMO5060-20-68 08:37:0084.1[facility] QPVBQPCVLK0281-91-35 08:37:00 Test Item Value Reference Range Interpretation Comments MCH (test code = MCH) 26.6 pg 27.0-31.0 L [facility] VdqcagwEPYNDSRCLZ5204-59-25 08:37:23000Hbfhpivc HermannHEMATOLOGY 2013-02-10 08:37:000.0[facility] YrkquccHBMWVRXDVU9739-70-90 08:37:000.2[facility] EaqlahgKSDZEDLKWU4403-61-23 08:37:000.3[facility] AozvxqbRSUCLQHHMF4125-56-30 08:37:003.1[facility] FapqumbZFABCSDJTM8982-92-61 08:37:0010.0[facility] RLEBAMKBMH9626-26-65 08:37:0041.5[facility] WbrsyhkWKUQIGYLBT2105-54-63 08:37:00 3.3[facility] BzzkoweGCBBLZPXVX7684-93-24 08:37:000.7[facility] HermannHEMATOLOGY 2013-02-10 08:37:003.0[facility] YvcvcuqXWTYLTJSSL2861-03-31 08:37:0045.1[facility] HermannBEDSIDE GLUCOSE DAXOEKC1021-18-29 01:53:22473Zpaofozm HermannBEDSIDE GLUCOSE IYWPVPS3609-51-28 21:34:60688Ydhexbou YwlqhytDGTMCVCVBC7715-49-17 15:01:0011.0[facility] XfecwsdMOXGLQYLPW2918-86-06 15:01:0034.6[facility] RWNNUAOKJN4211-94-95 10:23:0010.2[facility] CnqzsaaWVQHNJKKZL1888-94-29 10:23:00 32.1[facility] PyyahwiJCUVMBHMBT1593-93-11 14:47:70515Ljvprfmi HermannHEMATOLOGY 2013-02-08 14:47:0018.8[facility] TelilyqPRIQTUNKFJ3406-20-58 14:47:008.8[facility] JsrushmIMIMQSMZPD5249-85-26 14:47:0083.0[facility] XbmyxywZJMVHSSTNF3350-66-99 14:47:00 Test Item Value Reference Range Interpretation Comments MCH (test code = MCH) 26.4 pg 27.0-31.0 L [facility] UkzyyurTZJOKWLDUR8974-75-69 14:47:0031.8[facility] HermannHEMATOLOGY 2013-02-08 14:47:003.97[facility] NruymutOWTBCLGLCM6603-54-44 14:47:006.2[facility] IyugsbmOVWUCDGCHN7305-50-47 16:43:42021Qjhnlftl JbufnkpSDVJKYSMMH1524-92-21 16:43:008.7[facility] XhecztmTBPJXNHVOS1540-91-25 16:43:004.20[facility] XVJFNTOVRH9827-50-09 16:43:006.5[facility] ErdmnftHZYPLGCQRH3753-41-82 16:43:00 84.7[facility] PhkcvvyLDXBLGOJNP7860-77-29 16:43:00 Test Item Value Reference Range Interpretation Comments MCH (test code = MCH) 26.7 pg 27.0-31.0 L [facility] GdqshtsAOKHVGEMDM2442-20-35 16:43:0019.1[facility] HermannHEMATOLOGY 2013-02-07 16:43:0031.5[facility] HermannBLOOD BANK UBFTTLU9985-41-31 13:40:00 Product available 4(02/05/2013 08:40:00)[facility] HermannBLOOD BANK RESULTS 2013-02-05 00:40:00Negative (02/04/2013 19:40:00)[facility] HermannCHEMISTRY 2013-02-05 00:40:002.7[facility] NcufkhqPSVQXJNCK0606-81-13 00:40:001.5[facility] QrbldeyZBDIBJHWB8632-08-13 00:40:0093[facility] QqidbfbVVKWFKLYF2817-71-40 00:40:000.6[facility] IinsbakGYOHXSWFJ3377-46-06 00:40:0049[facility] SVNPAKSQE2880-14-00 00:40:93803Prvesjgz GxoconyZKLOTRWVE3003-77-29 00:40:003.1 [facility] YfqosgnOCPUYQGUG0915-94-05 00:40:0030[facility] HermannCHEMISTRY 2013-02-05 00:40:008.0[facility] KmwocrtXFGCBDMNJ0486-85-32 00:40:007.2[facility] TnlhwlzBXDYHNARW3051-83-30 00:40:0027[facility] PeurwmkOZEKGZQFD6640-25-80 00:40:37060Wlqabcpt OuueujtFHEUWSTZJ1023-19-06 00:40:005[facility] BMWSWEZQG4992-40-46 00:40:000.6[facility] GnfvrvzVNEQJVRMO7621-99-51 00:40:003.6 [facility] HauncqsEATJMBVWY6569-44-48 00:40:55131Zqtnahsp HermannCHEMISTRY 2013-02-05 00:40:51901Chptridn GpkicfhFHEIWSXSI8862-97-99 00:40:0013.6[facility] VjavpeyJEUATZQKV6507-24-33 00:40:008[facility] EdwlopcSANFAFGWO0482-09-96 00:40:00 0.8[facility] EsxpccgVANVMMIMP7787-49-59 00:40:004.1[facility] HermannHEMATOLOGY 2013-02-05 00:40:0038.5[facility] VxmkqebOBXVTIFSJA4070-84-59 00:40:000.6[facility] EdmbwnsNCSNSDGGHM8241-02-79 00:40:0013.5[facility] LvrrfeeSRJTHWNKXF8455-43-04 00:40:002.7[facility] YvlhjnrIWFEULHQPM0725-40-47 00:40:0044.7[facility] XOWAEWFGIX9538-45-05 00:40:000.2[facility] VytpubsNXFOLFJCTC3445-93-36 00:40:003.1 [facility] RppzxisPYTBLZRFHL7877-78-91 00:40:002.7[facility] HermannHEMATOLOGY 2013-02-05 00:40:000.0[facility] AfgsdcyZSFALVGNPL5139-14-61 00:40:000.9[facility] FboysowOBMXTESXBR6678-22-16 00:40:00 Test Item Value Reference Range Interpretation Comments aPTT (test code = aPTT) 32.2 s 22.9-35.8 N [facility] EjtwtciTIISLKLOFL9162-80-81 00:40:00 Test Item Value Reference Range Interpretation Comments PROTIME (test code = PROTIME) 15.0 s 12.0-14.7 H [facility] JelmkvsUKLUYDMOTI9574-47-52 00:40:001.19[facility] HermannURINALYSIS 2013-02-05 00:30:00Negative *NA*(02/04/2013 19:30:00)[facility] HermannURINALYSIS 2013-02-05 00:30:00Moderate *ABN*(02/04/2013 19:30:00)[facility] HermannURINALYSIS 2013-02-05 00:30:00Negative (02/04/2013 19:30:00)[facility] HermannURINALYSIS 2013-02-05 00:30:00Negative (02/04/2013 19:30:00)[facility] HermannURINALYSIS 2013-02-05 00:30:00Slight *ABN*(02/04/2013 19:30:00)[facility] HermannURINALYSIS 2013-02-05 00:30:006.0[facility] NmyrosgODLYEQKSMP2927-70-94 00:30:001.003[facility] AftpmiuHVWGWFUIQE7833-26-79 00:30:001[facility] EhsxaooXLNAKHXVXV5293-08-78 00:30:002[facility] HermannBEDSIDE GLUCOSE LYWAQOS9808-31-04 21:18:30734Cxpdfoau HermannBEDSIDE GLUCOSE JKFGSJC5822-79-43 17:01:37539Okhfqpvo HermannHEMATOLOGY 2013-01-27 14:14:0020.0[facility] EtutlccVWZBXOYYUJ5149-59-15 14:14:008.5[facility] HomvrsaSKMDGAGGAF0121-92-83 14:14:61912Tcrgsvhu PifnanaOPKRUPLFIM5744-62-46 14:14:005.7[facility] AsnyfgdFGLVDBTXJD9770-88-26 14:14:0030.5[facility] SFFMVXBRTW5028-16-28 14:14:009.6[facility] EcmtvjeEBUHYULBSE3364-97-30 14:14:00 3.60[facility] FwplbetQJZKFFLHSB9174-38-93 14:14:00 Test Item Value Reference Range Interpretation Comments MCH (test code = MCH) 26.6 pg 27.0-31.0 L [facility] VoaqaiaLJSYJGNHFC8461-63-64 14:14:0084.5[facility] HermannHEMATOLOGY 2013-01-27 14:14:0031.5[facility] OkfvfivBYRNFZMWND1076-18-81 14:14:0053.6[facility] RhztkfkYZCWUSPYWA2980-05-28 14:14:0032.8[facility] NhkuwntZWECYEYERS6271-08-24 14:14:0011.3[facility] BhdumlzEOKSMLLSKG8142-65-01 14:14:001.9[facility] ZYNTCUXFRW2024-18-13 14:14:000.4[facility] RpwclumUMNYPLCAGZ7873-89-16 14:14:003.0 [facility] IcxijljUNKFMLSHIO3093-98-71 14:14:001.9[facility]annHEMATOLOGY 2013-01-27 14:14:000.6[facility] SlfptznKTAMZOUWNQ5963-63-93 14:14:000.1[facility] UahaijwDEUKASJSTB1273-41-68 14:14:000.0[facility] HermannBEDSIDE GLUCOSE TESTING 2013-01-27 12:55:06445Dtewafzz TupblrpRTDUQXPRUZ6004-35-95 10:40:000.7[facility] DqnttugJNUPOQLDXQ6257-02-82 10:40:001.8[facility] CuvmsjkOXQMYASQEE2348-07-04 10:40:002.3[facility] QmkikxpXDMBZGVTDU0760-56-71 10:40:000.2[facility] PJRDDBNJFA5681-76-96 10:40:002.2[facility] ZrvhqrsQZTCRMQLQT8032-38-79 10:40:00 46.1[facility] CcsmyrcNGTLTCDYYK5474-47-24 10:40:0037.9[facility]annHEMATOLOGY 2013-01-26 10:40:0013.5[facility] GyrcaptGCAYZJMOTL4933-83-77 10:40:000.0[facility] KzgtytjUICXUNCOYV2561-83-71 10:40:000.1[facility] JesjdymQSQNWSYEDP6770-85-63 10:40:00 Test Item Value Reference Range Interpretation Comments PROTIME (test code = PROTIME) 16.5 s 12.0-14.7 H [facility] GgsodiyXYSPQWRJKY8940-07-74 10:40:001.35[facility]annHEMATOLOGY 2013-01-26 10:40:0028.5[facility] QxwfxahUDPMJKCJNH2941-67-34 10:40:0085.8[facility] ChrbapnYYIDMTUCVL3968-54-25 10:40:00 Test Item Value Reference Range Interpretation Comments MCH (test code = MCH) 27.2 pg 27.0-31.0 N [facility] QchxumnXIFVTZDBVY8470-90-21 10:40:0031.7[facility]annHEMATOLOGY 2013-01-26 10:40:009.0[facility] MvzdukpYPLTHIPYVZ3491-14-12 10:40:47113Ilpykuxs SwfpcthASYZMCDVZF6558-14-91 10:40:008.9[facility] QkuusenSBWYIKUKGM0075-38-99 10:40:0020.0[facility] IisbsjwIRLQOYDQSV6060-24-36 10:40:004.9[facility] [place] FOYVTBYHUS5031-87-98 10:40:003.32[facility] HermannTUMOR MPJRVGM2828-75-25 10:40:003.0[facility] QqdgwebMPWCCLWFQW6898-87-90 04:15:005.9[facility] IMYZGUAGNS7305-21-32 04:15:0085.3[facility] ItaiwlbCENTRUAHPC4878-68-84 04:15:00 153[facility] ZijryvrKCAAFBVKKL2445-25-36 04:15:0019.6[facility]annHEMATOLOGY 2013-01-26 04:15:009.5[facility] DcbettqPLSIAORATZ9536-83-49 04:15:003.55[facility] DtvuuyqCIRJHHUHLM3000-71-82 04:15:0030.3[facility] KdvchpmSYZOLJGCWI0264-55-42 04:15:008.9[facility] XyckydoAMPAIZKYJF8557-22-21 04:15:0031.4[facility] WTGUTUVSQZ8799-23-23 04:15:00 Test Item Value Reference Range Interpretation Comments MCH (test code = MCH) 26.8 pg 27.0-31.0 L [facility] TyfrpklGGKSKZFDOC3142-79-61 04:15:000.0[facility]annHEMATOLOGY 2013-01-26 04:15:000.7[facility] PdnhbnkGIIRYRDIDP4688-90-27 04:15:000.1[facility] YsjfjqpZVIMTFZOJD9201-05-69 04:15:0011.7[facility] LazsxrnYAJYIFDAVA5897-59-85 04:15:002.4[facility] LwwpzbfSOFXRMQWZK6377-19-69 04:15:000.6[facility] [place] KCTFFZODSR4306-95-19 04:15:002.6[facility] OludsngOHGPACRNJL3384-96-37 04:15:002.4 [facility] PycswywTDZLRRGXIU6212-57-04 04:15:0041.2[facility]annHEMATOLOGY 2013-01-26 04:15:0044.1[facility] LsmkyruUDNTGWTHMD8542-60-06 14:31:00Negative *NA*(01/25/2013 09:31:00)[facility] YddqlwhAOXAPWBCXW6663-70-61 14:31:00Negative *NA*(01/25/2013 09:31:00)[facility] MkrguudSZCOXKHWUI3288-53-91 14:31:00Negative *NA*(01/25/2013 09:31:00)[facility] RxliobzHTWHWOIFDV6528-08-36 14:31:00Positive *NA*(01/25/2013 09:31:00)[facility] DrjhixmRPRHWXQVJR1659-89-24 14:31:0079.7 [facility]BL[facility] HXIWTIE8301-09-98 13:32:00Product available 4(01/25/2013 08:32:00)[facility] DxcjicmYSJASAGQE2184-64-08 08:45:001.7[facility] GfpnvfcQKDYYFLYN3229-20-67 08:45:001.9[facility] QevzojcUMAEVNKXQ4840-46-28 08:45:000.04[facility] WsfjlbxOWRSRNEQC4200-32-77 08:45:94429Hefwcmxg [place] BSUUAXEQV1794-00-23 08:45:000.6[facility] NjgruxyGYOWHZDBE2699-64-23 08:45:000.5 [facility] MjejofrYOSEYZCLY3404-27-22 04:09:000.04[facility]annCHEMISTRY 2013-01-25 04:09:03946Ypnsdjdr QoktxyoCLASHJUKC7805-04-05 04:09:000.7[facility] OimghbeMNITRCZRZ2480-77-16 04:09:000.7[facility] MctczktJZJIAQAYJ7976-04-83 13:07:05439Hbzihaac YhjapctNARWSSMYN8649-65-03 13:07:003.6[facility] [place] IUHFCNEWS4536-79-98 13:07:24681Qoxhchap HfsunkxXWSWAHWAF2633-79-38 13:07:0093 [facility] OgiyybdCKLQISUJO2748-61-51 13:07:007[facility] SsaijieSCLZIYHTU1632-46-39 13:07:000.6[facility] JvdgkwdELIPIOGWL9938-90-75 13:07:0027[facility] [place] WBFIYHQAY0944-33-06 13:07:007.6[facility] GbgltbfGWJBIOPKV3898-09-27 13:07:57767 [facility] HkpqhdnYTBQFMLLN1919-03-56 13:07:0012.6[facility]annCHEMISTRY 2013-01-24 13:07:002.6[facility] KiibpweCBIJMMDAP1303-95-02 13:07:001.6[facility]BL[facility] QVVCCDH8982-66-15 04:33:26Product available 5(01/23/2013 23:33:26)[facility] SbvrgtvFWELUXCAN1214-84-08 03:15:0017[facility]annCHEMISTRY 2013-01-24 03:15:0013.8[facility] KiuuwspEGLZAPYJE0149-19-85 03:15:003.2[facility] AdywzkhLQLCEFWMU2833-45-82 03:15:000.9[facility] AbxblbiFJNNDYCNI3736-40-61 03:15:003.8[facility] WlqgwdzINHESRVHH7000-78-36 03:15:18049Ykycmwpx [place] OYGJVAHZS0071-28-28 03:15:10360Woltcdtz SanbmgeUUGDSBVAC9916-71-45 03:15:0088 [facility] [id number] 03:15:0046[facility]MISTRY 2013-01-24 03:15:33966Vjkchqat QkpkmmuYLWDSGQVM2404-54-75 03:15:000.6[facility] FeqlziyKRKVUYEGU4009-14-70 03:15:002.9[facility] [id number] 03:15:0032[facility] QbmxesxMDQMPDOQF9631-74-15 03:15:007.8[facility] [id number] 03:15:006.1[facility] [id number] 03:15:0026 [facility] [id number] 03:15:000.7[facility]annCHEMISTRY 2013-01-24 03:15:89451Glzyfqcu TvlqgtxBHXLTKRWU7553-05-78 03:15:0012[facility] [id number] 03:15:00 Test Item Value Reference Range Interpretation Comments PROTIME (test code = PROTIME) 16.7 s 12.0-14.7 H [facility] [id number] 03:15:001.37[facility]ann[facility]MATOLOGY 2013-01-24 03:15:00 Test Item Value Reference Range Interpretation Comments aPTT (test code = aPTT) 29.7 s 22.9-35.8 N [facility] BANK [id number] 03:13:00Negative (01/23/2013 22:13:00)[facility] [id number] 02:10:00Positive *ABN*(01/23/2013 21:10:00)[facility]
--- OUTSIDE RECORDS SUMMARY | 2020-03-05 16:14 | XMS REPORT | Summary of Care ---
:1940 Author Name CHUCK MANN Address Unavailable Unavailable , Care Team Providers Name Role Phone CHUCK MANN Unavailable Unavailable MILAGROS STEWART MD Unavailable Unavailable Unavailable Unavailable Unavailable Functional Status Name Dates Details Functional status health issues are not documented Status: Name Dates Details Cognitive status health issues are not documented Status: Problems Name Dates Details Closed displaced fracture of second meta tarsal bone of left foot, initial encounter (825.25, S92.322A) Status: Active Closed displaced fracture of third metat arsal bone of right foot, initial encounter (825.25, S92.331A) Status: Active Closed nondisplaced fracture of fourth m etatarsal bone of right foot, initial encounter (825.25, S92.344A) Status: Active Closed displaced midcervical fracture of left femur with routine healing, subsequent encounter (V54.13, S72.032D) Status: Active Weakness of left hip (729.89, R29.898) S tatus: Active Medications Name Dates Details Medications not documented Allergies and Adverse Reactions Name Dates Details Allergy history not documented Status: Procedures Procedure Dates Details Procedures not documented Immunization Name Dates Details Immunizations not documented Social History Name Dates Details Tobacco smoking consumption unknown (finding) Vital Signs Date Test Result Details No Known Vitals to report Results Date Description Value Details Results not documented Plan of Care Name Dates Details Planned Observations Planned Goals not documented Instructions Name Dates Details Instructions not documented Encounters Appointment; MILAGROS STEWART M.D. On: 14-Jan-2019 13:15 Encounter Diagnosis: Problem not documented
--- NOTE | 2020-03-05 18:00 | RAD REPORT ---
EXAM DESCRIPTION: Maxinet Single View03/05/2020 5:18 pm CLINICAL HISTORY: Liver cancer and weakness COMPARISON: 2019 FINDINGS: The patient is in a poor degree of inspiration The lungs appear clear of acute infiltrate. The heart is normal size
[2020-03-05 18:12] LABS: Absolute Lymphocytes (CBC) 0.9 K/uL (0.7-4.9); Basophils % 0.3 % (0-1.3); Hematocrit 45.1 % (36.0-45.0); Lymphocytes % 4.9 % (15.3-44.8); RBC Red Blood Cell Count 5.18 M/uL (3.86-4.86)
[2020-03-05 18:13] LABS: Protime INR 1.95
[2020-03-05 18:39] LABS: Albumin 2.1 g/dL (3.4-5.0); Bilirubin Direct 1.9 mg/dL (0-0.2); Bilirubin Total 3.4 mg/dL (0.2-1.0); Magnesium 2.1 mg/dL (1.8-2.4); Potassium 4.8 mmol/L (3.5-5.1); Protein, Total 6.6 g/dL (6.4-8.2); Troponin (Emerg Dept Use Only) 0.1 ng/mL (0.0-0.045)
[2020-03-05 19:00] LABS: Blood Morphology Comment NOT SEEN (NOT SEEN); Platelet Estimate ADEQ; White Blood Cell Scan OK (OK)
[2020-03-05] MEDS ORDERED: NA CHLORIDE 0.9% 500 ML ONE ×2 (19:45→21:32)
[2020-03-05] MEDS ORDERED: CEFTRIAXONE/SWI 1gm 1 GM/10 ML SYR ONE (19:45)
[2020-03-05 20:20] LABS: Urine Blood 2+ (NEG); Urine Glucose NEGATIVE (NEG); Urine Protein TRACE (NEG); Urine pH 5.5 (5.0-7.0)
[2020-03-05 20:23] LABS: Urine Bacteria LOADED /HPF (<20)
[2020-03-05 21:27] LABS: Thyroid Stimulating Hormone 5.5 uIU/mL (0.360-3.740)
--- NOTE | 2020-03-05 22:11 | EDPHYS ---
Physician Documentation [facility] Name: Sirisha Cowan Age: 79 yrs Sex: Female : 1940 Arrival Date: 03/05/2020 Time: 16:18 Bed 17 Private MD: ED Physician Greg Solis HPI: 03/05 16:47 This 79 yrs old Female presents to ER via EMS with complaints of General pm1 Weakness. 16:47 The patient presents to the emergency department with weakness of the entire body, pm1 generalized weakness. Onset: The symptoms/episode began/occurred 3 day(s) ago. Associated signs and symptoms: Pertinent negatives: altered mental status, fever, headache, focal weakness. Severity of symptoms: in the emergency department the symptoms are unchanged. The patient has been recently seen by a physician: with different complaint(s), paracentesis on 02/22 and 03/02. Historical: - Allergies: 16:27 No Known Allergies; - Home Meds: 21:27 bifidobacterium bifidum and longum 4 mg Oral daily [Active]; cholecalciferol (vitamin lp1 D3) 1,000 unit Oral tab daily [Active]; ezetimibe 10 mg Oral 1 tab once daily [Active]; famotidine 40 mg Oral tab 1 tab once daily [Active]; ferrous sulfate 325 mg (65 mg iron) Oral tab daily [Active]; furosemide 20 mg Oral tab 1 tab once daily [Active]; lactulose 20 gram/30 mL Oral soln 2-3 times a day as needed [Active]; levothyroxine 50 mcg tab 1 tab once daily [Active]; Lovaza 1 gram Oral cap 2 times per day [Active]; Novolog 100 unit/mL Sub-Q soln 55 unit BID before meals [Active]; pantoprazole 40 mg Oral TbEC 1 tab 2 times per day [Active]; pregabalin 75 MG Oral 1 cap 2 times per day [Active]; propranolol 40 mg Oral tab 1 tab 2 times per day [Active]; spironolactone 50 mg Oral tab 1 tab once daily [Active]; Tradjenta 5 mg Oral tab 1 tab once daily [Active]; tramadol 50 mg Oral tab q 6hrs prn [Active]; vitamin E 400 unit Oral cap daily [Active]; - PMHx: 16:27 Anemia; Cirrhosis; Diabetes - IDDM; GERD; High Cholesterol; Hypertension; ah Hypothyroidism; - PSHx: 16:27 Appendectomy; Cholecystectomy; Hysterectomy; Bladder suspension; ah - Immunization history:: Adult Immunizations up to date, Flu vaccine is up to date. - Social history:: Smoking status: Patient denies any tobacco usage or history of. ROS: 16:47 Constitutional: Negative for fever, chills, and weight loss, Neck: Negative for injury, pm1 pain, and swelling, Cardiovascular: Negative for chest pain, palpitations, and edema, Respiratory: Negative for shortness of breath, cough, wheezing, and pleuritic chest pain, Abdomen/GI: Negative for abdominal pain, nausea, vomiting, diarrhea, and constipation, Back: Negative for injury and pain, MS/Extremity: Negative for injury and deformity, Skin: Negative for injury, rash, and discoloration. 16:47 Neuro: Positive for generalized weakness, Negative for headache, numbness, tingling. Exam: 16:47 Constitutional: This is a well developed, well nourished patient who is awake, alert, pm1 and in no acute distress. Head/Face: Normocephalic, atraumatic. 16:47 Back: No spinal tenderness. No costovertebral tenderness. Full range of motion. Skin: Warm, dry with normal turgor. Normal color with no rashes, no lesions, and no evidence of cellulitis. MS/ Extremity: Pulses equal, no cyanosis. Neurovascular intact. Full, normal range of motion. 16:47 Cardiovascular: Exam negative for acute changes, Rate: normal, Rhythm: regular, Pulses: no pulse deficits are appreciated. 16:47 Respiratory: Exam negative for acute changes, respiratory distress, shortness of breath. 16:47 Abdomen/GI: Inspection: distension, that is mild, Palpation: abdomen is soft and non-tender, in all quadrants. 16:47 Neuro: Exam negative for acute changes, Orientation: is normal, Mentation: is normal, Motor: is normal, moves all fours. Vital Signs: 16:19 BP 115 / 51; Pulse 92; Resp 16; Temp 98.2; Pulse Ox 97% ; Weight 78.02 kg; Height 5 ft. ah 2 in. (157.48 cm); Pain 0/10; 19:15 BP 115 / 72; Pulse 88; Resp 20; Pulse Ox 97% on R/A; lp1 20:00 BP 110 / 63; Pulse 89; Resp 20; Pulse Ox 98% on R/A; lp1 21:00 BP 112 / 57; Pulse 89; Resp 20; Pulse Ox 97% on R/A; Pain 0/10; lp1 22:00 BP 112 / 59; Pulse 90; Resp 17; Pulse Ox 97% on R/A; lp1 16:19 Body Mass Index 31.46 (78.02 kg, 157.48 cm) ah MDM: 16:33 Patient medically screened. pm1 20:07 Data reviewed: vital signs. Data interpreted: Pulse oximetry: on room air is 97 %. pm1 Interpretation: normal. 20:25 Counseling: I had a detailed discussion with the patient and/or guardian regarding: the pm1 historical points, exam findings, and any diagnostic results supporting the discharge/admit diagnosis, lab results, the need for further work-up and treatment in the hospital. 20:41 Special discussion: Code status and DNR: Discussed code status with patient as pm1 requested by Dr. Culver. Patient reports that she has an out of hospital DNR and does not want to be resuscitated in the hospital. She took herself off the liver transplant list. 20:44 Physician consultation: A Abiola BOLAÑOS was contacted at 20:32, regarding admission, pm1 patient's condition, and will see patient tomorrow, would like further tests performed, serum osmolality, urine sodium level, and urine osmolality now. TSH. Fasting lipid, chem 7 and CBC at 0600. 03/05 16:25 Order name: Glucose, Ancillary Testing; Complete Time: 16:33 EDMS 03/05 16:47 Order name: Basic Metabolic Panel; Complete Time: 18:41 pm1 03/05 16:47 Order name: CBC with Diff; Complete Time: 19:01 pm1 03/05 16:47 Order name: LFT's; Complete Time: 18:41 pm1 03/05 16:47 Order name: Magnesium; Complete Time: 18:41 pm1 03/05 16:47 Order name: NT PRO-BNP; Complete Time: 18:41 pm1 03/05 16:47 Order name: PT-INR; Complete Time: 18:33 pm1 03/05 16:47 Order name: Troponin (emerg Dept Use Only); Complete Time: 18:41 pm1 03/05 18:14 Order name: CBC Smear Scan; Complete Time: 19:01 EDMS 03/05 18:37 Order name: Urine Microscopic Only; Complete Time: 20:25 pm1 03/05 18:43 Order name: AMMONIA; Complete Time: 19:40 pm1 03/05 18:49 Order name: Blood Culture Adult (2) pm1 03/05 19:44 Order name: COVID-19 pm1 03/05 20:12 Order name: Urine Dipstick--Ancillary (enter results); Complete Time: 20:20 tt3 03/05 16:47 Order name: XRAY Chest (1 view); Complete Time: 18:33 pm1 03/05 16:47 Order name: EKG; Complete Time: 16:48 pm1 03/05 16:47 Order name: Cardiac monitoring; Complete Time: 19:08 pm1 03/05 20:24 Order name: Urine Culture EDNJ 03/05 20:43 Order name: Osmolality, Serum pm1 03/05 20:43 Order name: Urine Osmolality pm03/05 20:43 Order name: Urine Sodium Random pm1 03/05 20:55 Order name: TSH pm1 03/05 21:27 Order name: Thyroid Stimulating Hormone; Complete Time: 09:07 EDMS 03/05 21:28 Order name: UR SODIUM; Complete Time: 09:07 EDMS 03/05 21:40 Order name: T4 Free; Complete Time: 09:07 EDMS 03/05 22:03 Order name: Osmolality, Urine; Complete Time: 09:07 EDNJ 03/05 22:04 Order name: Osmolality, Serum; Complete Time: 09:07 EDNJ 03/05 16:47 Order name: EKG - Nurse/Tech; Complete Time: 19:07 pm1 03/05 16:47 Order name: IV Saline Lock; Complete Time: 19:08 pm1 03/05 16:47 Order name: Labs collected and sent; Complete Time: 19:08 pm1 03/05 16:47 Order name: O2 Per Protocol; Complete Time: 19:08 pm1 03/05 16:47 Order name: O2 Sat Monitoring; Complete Time: 19:08 pm1 03/05 18:37 Order name: Urine Dipstick-Ancillary (obtain specimen); Complete Time: 20:08 pm1 03/05 19:25 Order name: Straight Cath - Urine; Complete Time: 20:07 pm1 Administered Medications: 19:45 Drug: NS 0.9% 500 ml Route: IV; Rate: bolus; Site: right antecubital; lp1 21:22 Follow up: IV Status: Completed infusion; IV Intake: 500ml lp1 19:55 Drug: Rocephin 1 grams Route: IV; Rate: calculated rate; Site: right antecubital; lp1 20:30 Follow up: IV Status: Completed infusion; IV Intake: 10ml lp1 21:22 Drug: NS 0.9% 500 ml Route: IV; Rate: bolus; Site: right antecubital; lp1 22:10 Follow up: IV Status: Infusion continued upon admission lp1 Disposition: 03/06 14:27 Co-signature as Attending Physician, Greg Solis MD. rn Disposition: 03/05/20 20:26 Hospitalization ordered by Dorothy Culver for Inpatient Admission. Preliminary diagnosis are Hypo-osmolality and hyponatremia, Weakness, Urinary tract infection, site not specified, Candidiasis. - Bed requested for Telemetry/MedSurg (Inpatient). - Status is Inpatient Admission. lp1 - Condition is Stable. - Problem is new. - Symptoms have improved. Signatures: Dispatcher [employer] EDMS Greg Solis MD MD rn Pena, Laura, RN RN 1 Ree Lozoya RN RN Nik Dalton NP [employer] pm1 Taniya Cooper RN RN Corrections: (The following items were deleted from the chart) 03/05 20:26 20:26 Hospitalization Ordered by A Abiola BOLAÑOS for Inpatient Admission. Preliminary pm1 diagnosis is Weakness; Hypo-osmolality and hyponatremia; Urinary tract infection, site not specified. Bed requested for Telemetry/MedSurg (Inpatient). Status is Inpatient Admission. Condition is Stable. Problem is new. Symptoms have improved. pm1 20:44 20:26 03/05/2020 20:26 Hospitalization Ordered by A Abiola BOLAÑOS for Inpatient Admission. Preliminary diagnosis is Hypo-osmolality and hyponatremiaWeakness; Urinary tract infection, site not specified. Bed requested for Telemetry/MedSurg (Inpatient). Status is Inpatient Admission. Condition is Stable. Problem is new. Symptoms have improved. pm1 20:53 20:44 03/05/2020 20:26 Hospitalization Ordered by A Abiola BOLAÑOS for Inpatient Admission. pm1 Preliminary diagnosis is Hypo-osmolality and hyponatremiaWeakness; Urinary tract infection, site not specified. Bed requested for Telemetry/MedSurg (Inpatient). Status is Inpatient Admission. Condition is Stable. Problem is new. Symptoms have improved. cg 22:10 20:53 03/05/2020 20:26 Hospitalization Ordered by A Abiola BOLAÑOS for Inpatient Admission. lp1 Preliminary diagnosis is Hypo-osmolality and hyponatremiaWeakness; Urinary tract infection, site not specified; Candidiasis. Bed requested for Telemetry/MedSurg (Inpatient). Status is Inpatient Admission. Condition is Stable. Problem is new. Symptoms have improved. pm1
--- NOTE | 2020-03-05 22:11 | ER ---
Nurse's Notes [facility] Name: Sirisha Cowan Age: 79 yrs Sex: Female : 1940 Arrival Date: 03/05/2020 Time: 16:18 Bed 17 Private MD: Diagnosis: Weakness;Hypo-osmolality and hyponatremia;Urinary tract infection, site not specified;Candidiasis Presentation: 03/05 16:19 Chief complaint: EMS states: patient complains of weakness x3 days. She has had 2 ah paracentesis in the last month from liver cancer. Coronavirus screen: At this time, the client does not indicate any symptoms associated with coronavirus-19. Ebola Screen: No symptoms or risks identified at this time. Initial Sepsis Screen: Does the patient meet any 2 criteria? No. Patient's initial sepsis screen is negative. Does the patient have a suspected source of infection? No. Patient's initial sepsis screen is negative. Risk Assessment: Do you want to hurt yourself or someone else? Patient reports no desire to harm self or others. Onset of symptoms was March 03, 2020. 16:19 Method Of Arrival: EMS: [facility] 16:19 Acuity: GILMA 3 16:28 Care prior to arrival: Medication(s) given: Normal saline infusion, 500 mL, IV ah initiated. 22 GA, in the left antecubital area, Glucose check: 280. Historical: - Allergies: 16:27 No Known Allergies; - Home Meds: 21:27 bifidobacterium bifidum and longum 4 mg Oral daily [Active]; cholecalciferol (vitamin lp1 D3) 1,000 unit Oral tab daily [Active]; ezetimibe 10 mg Oral 1 tab once daily [Active]; famotidine 40 mg Oral tab 1 tab once daily [Active]; ferrous sulfate 325 mg (65 mg iron) Oral tab daily [Active]; furosemide 20 mg Oral tab 1 tab once daily [Active]; lactulose 20 gram/30 mL Oral soln 2-3 times a day as needed [Active]; levothyroxine 50 mcg tab 1 tab once daily [Active]; Lovaza 1 gram Oral cap 2 times per day [Active]; Novolog 100 unit/mL Sub-Q soln 55 unit BID before meals [Active]; pantoprazole 40 mg Oral TbEC 1 tab 2 times per day [Active]; pregabalin 75 MG Oral 1 cap 2 times per day [Active]; propranolol 40 mg Oral tab 1 tab 2 times per day [Active]; spironolactone 50 mg Oral tab 1 tab once daily [Active]; Tradjenta 5 mg Oral tab 1 tab once daily [Active]; tramadol 50 mg Oral tab q 6hrs prn [Active]; vitamin E 400 unit Oral cap daily [Active]; - PMHx: 16:27 Anemia; Cirrhosis; Diabetes - IDDM; GERD; High Cholesterol; Hypertension; Hypothyroidism; - PSHx: 16:27 Appendectomy; Cholecystectomy; Hysterectomy; Bladder suspension; ah - Immunization history:: Adult Immunizations up to date, Flu vaccine is up to date. - Social history:: Smoking status: Patient denies any tobacco usage or history of. Screenin:33 Abuse screen: Denies threats or abuse. Nutritional screening: No deficits noted. Tuberculosis screening: No symptoms or risk factors identified. Fall Risk None identified. Assessment: 16:30 Reassessment: EMS states that patient took her insulin prior to leaving, he states that ah she administered it in her fingertip. pt states that she takes Novolog 70/30 BID. 19:45 Reassessment: Patient appears in no apparent distress at this time. General: Appears in lp1 no apparent distress. Behavior is calm, cooperative. Pain: Denies pain. Neuro: Level of Consciousness is awake, alert, obeys commands, Oriented to person, place, situation, Reports weakness generalized. Cardiovascular: Capillary refill < 3 seconds in bilateral fingers toes Patient's skin is warm and dry. Respiratory: Airway is patent Respiratory effort is even, Respiratory pattern is regular, symmetrical, Breath sounds are clear bilaterally. GI: Abdomen is noted to have ascites, Bowel sounds present X 4 quads. Abd is soft and non tender X 4 quads. : Denies burning with urination. EENT: Oral mucosa is dry. Derm: Skin is fragile, is thin, Skin is dry, Skin is pink, warm \T\ dry. Musculoskeletal: No deficits noted. 21:00 Reassessment: Provider at bedside to discuss admission with patient and family at lp1 bedside; demonstrate understanding Patient denies pain at this time. Neuro: Level of Consciousness is awake, alert, obeys commands. Respiratory: Respiratory effort is even, unlabored. Derm: Skin is pink, warm \T\ dry. Vital Signs: 16:19 BP 115 / 51; Pulse 92; Resp 16; Temp 98.2; Pulse Ox 97% ; Weight 78.02 kg; Height 5 ft. 2 in. (157.48 cm); Pain 0/10; 19:15 BP 115 / 72; Pulse 88; Resp 20; Pulse Ox 97% on R/A; lp1 20:00 BP 110 / 63; Pulse 89; Resp 20; Pulse Ox 98% on R/A; lp1 21:00 BP 112 / 57; Pulse 89; Resp 20; Pulse Ox 97% on R/A; Pain 0/10; lp1 22:00 BP 112 / 59; Pulse 90; Resp 17; Pulse Ox 97% on R/A; lp1 16:19 Body Mass Index 31.46 (78.02 kg, 157.48 cm) ED Course: 16:18 Patient arrived in ED. 16:20 Nik Dalton NP is PHCP. pm1 16:20 Greg Solis MD is Attending Physician. pm1 16:23 Triage completed. 17:18 XRAY Chest (1 view) In Process Unspecified. EDMS 17:33 Taniya Cooper, ANTONIO is Primary Nurse. 17:33 Maintain EMS IV. Dressing intact. Good blood return noted. Site clean \T\ dry. Gauge \T\ ah site: 22 L AC. 17:34 Patient has correct armband on for positive identification. Bed in low position. Call light in reach. Side rails up X2. Adult w/ patient. air sampling and monitoring on. Pulse ox on. NIBP on. 19:18 Inserted saline lock: 22 gauge in right antecubital area, using aseptic technique. 4 Blood collected. 19:19 Blood Culture Adult (2) Sent. dh4 19:19 AMMONIA Sent. 4 19:45 Arm band placed on. lp1 19:50 Straight cath inserted, using sterile technique, 16 Fr. Specimen obtained. Returned lp1 gloria urine. 20:26 Dorothy Culver MD is Hospitalizing Provider. pm1 21:22 No provider procedures requiring assistance completed. Patient admitted, IV remains in lp1 place. Administered Medications: 19:45 Drug: NS 0.9% 500 ml Route: IV; Rate: bolus; Site: right antecubital; lp1 21:22 Follow up: IV Status: Completed infusion; IV Intake: 500ml lp1 19:55 Drug: Rocephin 1 grams Route: IV; Rate: calculated rate; Site: right antecubital; lp1 20:30 Follow up: IV Status: Completed infusion; IV Intake: 10ml lp1 21:22 Drug: NS 0.9% 500 ml Route: IV; Rate: bolus; Site: right antecubital; lp1 22:10 Follow up: IV Status: Infusion continued upon admission lp1 Intake: 20:30 IV: 10ml; Total: 10ml. lp1 21:22 IV: 500ml; Total: 510ml. lp1 Outcome: 20:26 Decision to Hospitalize by Provider. pm1 21:23 Condition: stable lp1 21:23 Instructed on the need for admit. 21:28 Admitted to Tele accompanied by tech, via stretcher, room 401, with chart, Report lp1 called to ANTONIO Marrero 22:10 Patient left the ED. lp1 Signatures: Dispatcher [employer] EDMS Marcie Reeder, RN RN lp1 Nik Dalton, CIRCULAR SAWYER STONE CIRCULAR SAWYER STONE pm1 Taniya Cooper, RN RN Shiva Cano [facility]
[2020-03-05] MEDS: CLOTRIMAZOLE 10 MG TROCHE PO SCH (23:19)
[2020-03-06 05:31] VITALS: BMI 30.3
[2020-03-06 06:26] LABS: Absolute Lymphocytes (CBC) 1.3 K/uL (0.7-4.9); Basophils % 0.2 % (0-1.3); Hematocrit 42.2 % (36.0-45.0); Lymphocytes % 8.3 % (15.3-44.8); MPV 8.8 fL (7.6-11.3); RBC Red Blood Cell Count 4.86 M/uL (3.86-4.86)
[2020-03-06 06:45] LABS: Potassium 4.7 mmol/L (3.5-5.1)
[2020-03-06 08:02] LABS: Platelet Estimate ADEQ; White Blood Cell Scan OK (OK)
[2020-03-06 08:03] LABS: Blood Morphology Comment NOT SEEN (NOT SEEN)
[2020-03-06] MEDS ORDERED: methocarbamoL 500 MG TAB PO PRN (08:05)
[2020-03-06] MEDS ORDERED: TRAMADOL HCL 50 MG TAB PO PRN (08:05)
[2020-03-06] MEDS ORDERED: D50W 25 GM/50 ML SYRINGE IV PRN (08:06)
[2020-03-06] MEDS ORDERED: GLUCAGON 1 MG/VIAL IM PRN (08:06)
[2020-03-06] MEDS: NA CHLORIDE 0.9% 1,000 ML IV SCH ×2 (08:52→17:00)
[2020-03-06] MEDS: FERROUS SULFATE 325 MG TAB PO SCH (08:54)
[2020-03-06] MEDS: CLOTRIMAZOLE 10 MG TROCHE PO SCH ×4 (08:55→21:40)
[2020-03-06] MEDS: CEFTRIAXONE/SWI 1gm 1 GM/10 ML SYR IV SCH ×2 (08:56→21:36)
[2020-03-06] MEDS: PROPRANOLOL HCL 10 MG TAB PO SCH ×2 (09:00→21:00)
[2020-03-06] MEDS ORDERED: CEFTRIAXONE 1 GM/NS 50 ML 1 GM/50 ML BAG IV SCH (09:00)
[2020-03-06] MEDS ORDERED: HOME MED 1 EA UNK (Linagliptin [Tradjenta] 1 TAB) PO SCH (09:00)
[2020-03-06] MEDS ORDERED: CEFTRIAXONE/SWI 1gm 1 GM/10 ML SYR IV SCH (09:00)
[2020-03-06] MEDS: INSULIN -REGULAR HUMAN 50 UNIT/0.5 ML ML SQ SCH ×3 (11:30→21:00)
[2020-03-06 12:52] LABS: Potassium 4.8 mmol/L (3.5-5.1)
--- NOTE | 2020-03-06 12:55 | HP ---
Date of Admission: 03/06/2020 Chief Complaint: Weakness, urinary tract infection. History Of Present Illness: This is a 79-year-old very pleasant female patient who has history of liver cancer and goes to [facility] for that. The patient was on liver transplant list for long time, but she decided to come off the list few months ago. Her condition is deteriorating over period of time with this liver cancer and lately she is having increasing generalized weakness and poor appetite. The patient reported that she had paracentesis done 2 times this month. First one was on 02/26/2020 and second one was on 03/02/2020, and each time she had approximately 5 L of fluid removed and this was done at [facility]. This is something new that she is having problem with. In last 1 week, her appetite has gone down significantly and she probably had few bites of food and few sips of liquid in last few days with worsening generalized weakness to the extent that she is not able to even get out of the bed to go to the bathroom and her has to help her. No fall. No injury. No fever. Denies any diarrhea. She has some nausea associated with her generalized weakness. No abdominal pain. Denies any headache. Amount of food that she probably had in last 1 week put together comes out to be less than quantity of one meal. All these worsening symptoms are generalized weakness. She came into emergency room yesterday. After she was evaluated, she was admitted to the hospital and the patient has severe hyponatremia with her serum sodium being less than 120 when she presented yesterday. IV fluid was given in the emergency room and 1 L of total IV fluid was given and this morning serum sodium level is 118. Allergies: NO KNOWN ALLERGIES. Medications: Ezetimibe 10 mg daily, ferrous sulfate 325 mg daily, furosemide 20 mg daily, Caltrate plus D 1 tablet 2 times a day. Voltaren gel apply to affected area for joint pain 3 times a day as needed, famotidine 40 mg at bedtime, fluticasone nasal spray 1 spray each nostril 2 times a day, NovoLog mix 70/30 insulin, takes 50 units in the morning and 25 units in the evening, propranolol 40 mg, the patient takes half a tablet 2 times, lactulose 30 cc by mouth 4 times a day. I am not sure if she is currently taking it or not, levothyroxine 50 mcg p.o. daily, Tradjenta 5 mg p.o. daily, methocarbamol 500 mg 3 times a day as needed for back pain, Lovaza 1 capsule by mouth 2 times a day, pantoprazole 40 mg by mouth 2 times a day, Lyrica 75 mg p.o. 2 times a day, spironolactone 50 mg p.o. daily. Review of Systems: GI: As mentioned above. CONSTITUTIONAL: As mentioned above. All other systems reviewed and negative. Past Medical History: Significant for hypothyroidism, type 2 diabetes mellitus, hypertension, mixed hyperlipidemia, gastroesophageal reflux disease, cirrhosis of liver due to fatty liver disease and liver cancer, diverticulosis, leg edema, anemia, iron deficiency. Past Surgical History: Significant for cholecystectomy, appendectomy, hemorrhoid surgery, bladder suspension surgery, hysterectomy, and on August 14, 2016 she had transcatheter embolization for hepatocellular carcinoma. Past surgical history is also significant for back surgery and hip surgery. Family History: Father , had coronary artery disease. Mother , had COPD. Brother also had coronary artery disease. Social History: Negative for smoking and alcohol use. Physical Examination: Vital Signs: Temperature 97.8, pulse 79, respiratory rate 20, blood pressure 132/60, oxygen saturation 94%. Height 5 feet 2 inches, weight 166 pounds. General: The patient appears extremely weaker than her normal state. Awake, alert, oriented x3. Not in any respiratory distress. HEENT: Head atraumatic, normocephalic. Conjunctivae nonerythematous. Sclerae yellow. Mouth, no thrush or edema noted. Ears/Nose, no mass, lesion, discharge noted. Neck: Supple. No JVD, lymph nodes, bruit, thyromegaly noted. Lungs: Bilateral good equal air entry. Clear to auscultation. No rhonchi. No rales. Heart: Normal heart sounds, no murmur or gallop. Abdomen: Very small amount of ascitic fluid detected on percussion. No guarding. No rigidity. No distention. No rebound tenderness. No hepatosplenomegaly. No bruit. Bowel sounds normoactive. Extremities: No leg edema. No calf tenderness. Skin: No rash, ulcer, cellulitis. Lymphatics: No lymph node enlargement in neck, supraclavicular, infraclavicular region. Neuro: Significant generalized weakness without any focal neurological deficits. Chest: Unremarkable. External Genitalia: Deferred. Rectal: Deferred. Laboratory Data: Yesterday white count 17.5, hemoglobin 15.2, platelets 188. This morning white count 15, hemoglobin 14.3, platelets 162. Yesterday, sodium 120, potassium 4.8, chloride 87, bicarb 22, BUN 22, creatinine 1.08, glucose 237, calcium 7.7, magnesium 2.1, total bilirubin 3.4, direct bilirubin 1.9, AST 109, ALT 37. Alkaline phosphatase 234. Troponin 0.10. BNP 643. Albumin 2.1. TSH 5.5. Serum osmolality 258. This morning, triglycerides 90, sodium 118, potassium 4.7, chloride 87, bicarb 20, BUN 25, creatinine 0.97, glucose 164. Calcium 7.2. INR 1.95. Her urinalysis yesterday collected as a straight cath specimen shows trace leukocytes, 2+ blood, 20-50 WBC, and bacteria loaded. Urine osmolality 413, urine sodium 6. Chest x-ray, no acute changes. Impression: 1. Hyponatremia, severe. 2. Volume depletion. 3. Failure to thrive. 4. Malnutrition. 5. Hepatocellular carcinoma. 6. Type 2 diabetes mellitus. 7. Mixed hyperlipidemia. 8. Hypertension. 9. Hypothyroidism. 10. Gastroesophageal reflux disease. 11. 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 12. Diverticulosis. 13. Hypocalcemia. 14. Urinary tract infection. Plan: We will go ahead and admit her to hospital for further evaluation of this problem. The patient is appropriate for inpatient and is expected to spend 2 midnights in the hospital. She got 1 L of IV fluid. We will go ahead and do normal saline at 125 cc/hour per order and we will repeat her blood work around noon time today and depending on that result, we will be making decision. If the sodium level drops any further, move her to ICU for 3% saline solution infusion and this plan of treatment was discussed with her and she understands and agrees with that. The patient is awake, alert, oriented, answering all the questions appropriately. She gave me name and phone number for her son and her sister and states that they both have her medical power of litigation attorney associate and she will need me to call one of them to discuss details and she expressed not to call her because of his bad hearing. We will continue her home medication. Diabetes will be managed with sliding scale. We had a long discussion today regarding advanced care planning. We talked to the patient about medical power of litigation attorney associate as well as living will or advanced directives. The patient states that her son and her sister have her medical power of litigation attorney associate and they already had that documented in place. She also has advanced directive drafted by litigation attorney associate and I talked about getting out of hospital. DNR paperwork is ready. In the event of cardiopulmonary arrest, the patient clearly states that she does not want any CPR or defibrillation or intubation, ventilator support, and sent home and she would like for God and nature to take its course and keep her comfortable. Do not resuscitate order is in place in her car, but we will need to get out of hospital DNR paperwork ready and I explained it to her about how to get such form signed and ready for her to have it available for her use when she leaves hospital and goes home. We also talked about end of life care. In my opinion, she has terminal illness with her liver cancer and her life expectancy is less than 6 months if the disease continues to progress as expected and she is appropriate candidate for hospice care. The patient understands all this and she has expressed her desire to go home from the hospital on hospice care. We will have our social worker masters assist her with the hospice care management. We also talked about available hospice agencies in our area and we will go with her choice of [facility] hospice and I will have Social Service assist her with that. Per patient's request, I did try to call her son at [phone], but he was not available and then I called her sister , at [phone] and I was able to communicate with her all the details regarding this hospital admissions, test results as well as advanced care planning discussion that I had with the patient. All those details were discussed with the patient's sister and she understands very clearly about the patient's prognosis being very poor and she agrees with the patient's decision to go home with the hospice care. Total time spent on advanced care planning (separate from evaluation and management) was 25 minutes. RACHELL/SHAHBAZ Voice ID: [id number] OLIVIA
[2020-03-06 17:37] LABS: Potassium 5.2 mmol/L (3.5-5.1)
[2020-03-06] MEDS ORDERED: SOD POLYSTYREN SUL 15 GM/60 ML UCUP PO ONE (18:32)
[2020-03-06] MEDS ORDERED: FAMOTIDINE PO SCH (21:00)
[2020-03-06] MEDS ORDERED: NA CHLORIDE 3% 500 ML ONE (21:25)
[2020-03-06] MEDS: PREGABALIN 50 MG CAP PO SCH (21:36)
[2020-03-06] MEDS ORDERED: FAMOTIDINE 20 MG TAB ONE (21:46)
[2020-03-06] MEDS ORDERED: NA CHLORIDE 3% 500 ML IV SCH (22:00)
[2020-03-07 00:06] LABS: Potassium 4.2 mmol/L (3.5-5.1)
[2020-03-07 02:44] LABS: Potassium 4.4 mmol/L (3.5-5.1)
[2020-03-07 04:46] LABS: Potassium 4.5 mmol/L (3.5-5.1)
[2020-03-07 06:24] LABS: Potassium 5.1 mmol/L (3.5-5.1)
[2020-03-07] MEDS: INSULIN -REGULAR HUMAN 50 UNIT/0.5 ML ML SQ SCH ×4 (07:30→20:27)
[2020-03-07] MEDS ORDERED: CEFTRIAXONE/SWI 1gm 1 GM/10 ML SYR ONE ×2 (07:54→20:19)
[2020-03-07] MEDS ORDERED: COSYNTROPIN 0.25 MG VIAL IV ONE (08:00)
[2020-03-07] MEDS ORDERED: SODIUM CHLORIDE 0.9% 10ML INJ IV ONE (08:00)
[2020-03-07] MEDS: CEFTRIAXONE/SWI 1gm 1 GM/10 ML SYR IV SCH ×2 (08:13→20:26)
[2020-03-07] MEDS: LEVOTHYROXINE SOD 0.05 MG TABLET PO SCH (09:20)
[2020-03-07] MEDS: FERROUS SULFATE 325 MG TAB PO SCH (09:20)
[2020-03-07] MEDS: CLOTRIMAZOLE 10 MG TROCHE PO SCH ×5 (09:20→21:00)
[2020-03-07 09:38] LABS: Potassium 4.7 mmol/L (3.5-5.1)
[2020-03-07] MEDS: NA CHLORIDE 3% 500 ML IV SCH ×2 (11:00→12:34)
[2020-03-07 12:00] LABS: Potassium 4.9 mmol/L (3.5-5.1)
[2020-03-07] MEDS ORDERED: INSULIN -REGULAR HUMAN 50 UNIT/0.5 ML ML ONE ×2 (12:41→16:39)
[2020-03-07] MEDS ORDERED: NA CHLORIDE 3% 500 ML ONE (12:43)
[2020-03-07] MEDS ORDERED: ONDANSETRON 4 MG/2 ML VIAL IV PRN (12:55)
[2020-03-07] MEDS ORDERED: ONDANSETRON 4 MG/2 ML VIAL ONE (13:17)
[2020-03-07 14:28] LABS: Potassium 4.9 mmol/L (3.5-5.1)
[2020-03-07 17:11] LABS: Potassium 4.7 mmol/L (3.5-5.1)
[2020-03-07] MEDS ORDERED: FAMOTIDINE 20 MG TAB ONE (20:19)
[2020-03-07] MEDS ORDERED: PREGABALIN 50 MG CAP ONE (20:19)
[2020-03-07] MEDS: FAMOTIDINE 20 MG TAB PO SCH ×2 (20:26→21:00)
[2020-03-07] MEDS: PREGABALIN 50 MG CAP PO SCH ×2 (20:26→21:00)
[2020-03-07] MEDS ORDERED: NA CHLORIDE 0.9% 500 ML IV ONE (20:32)
[2020-03-07 20:45] LABS: Potassium 5.1 mmol/L (3.5-5.1)
[2020-03-07] MEDS ORDERED: FAMOTIDINE 20 MG TAB PO SCH (21:00)
[2020-03-07 23:41] LABS: Potassium 5.6 mmol/L (3.5-5.1)
[2020-03-08] MEDS ORDERED: SODIUM BICARB 50 MEQ/50ML VIAL ONE ×2 (00:01→06:36)
[2020-03-08] MEDS ORDERED: NA CHLORIDE 3% 500 ML ONE (00:06)
[2020-03-08] MEDS ORDERED: SOD POLYSTYREN SUL 15 GM/60 ML UCUP PO ONE (00:07)
[2020-03-08] MEDS: NA CHLORIDE 3% 500 ML IV SCH (00:17)
[2020-03-08] MEDS ORDERED: SOD POLYSTYREN SUL 15 GM/60 ML UCUP ONE (00:29)
[2020-03-08 02:34] LABS: Potassium 5.4 mmol/L (3.5-5.1)
[2020-03-08] MEDS ORDERED: NA CHLORIDE 0.9% 500 ML IV ONE (05:11)
[2020-03-08] MEDS ORDERED: NA CHLORIDE 0.9% 500 ML ONE (05:24)
[2020-03-08 05:47] LABS: Absolute Lymphocytes (CBC) 1.1 K/uL (0.7-4.9); Basophils % 0.2 % (0-1.3); Lymphocytes % 6.8 % (15.3-44.8); MPV 9.7 fL (7.6-11.3); RBC Red Blood Cell Count 5.04 M/uL (3.86-4.86)
[2020-03-08 05:54] LABS: Potassium 5.7 mmol/L (3.5-5.1)
[2020-03-08] MEDS: LEVOTHYROXINE SOD 0.05 MG TABLET PO SCH (06:00)
[2020-03-08] MEDS ORDERED: NA CHLORIDE 0.9% 1,000 ML ONE (06:36)
[2020-03-08] MEDS ORDERED: NA CHLORIDE 0.9% 1,000 ML IV SCH (07:00)
[2020-03-08] MEDS: INSULIN -REGULAR HUMAN 50 UNIT/0.5 ML ML SQ SCH ×2 (07:30→11:30)
[2020-03-08] MEDS: CLOTRIMAZOLE 10 MG TROCHE PO SCH (07:38)
[2020-03-08] MEDS: CEFTRIAXONE/SWI 1gm 1 GM/10 ML SYR IV SCH (07:38)
[2020-03-08] MEDS: FERROUS SULFATE 325 MG TAB PO SCH (07:38)
--- NOTE | 2020-03-08 08:24 | PN ---
Date of Progress Note: 03/07/2020 Subjective: The patient was seen for followup in the morning, appears weak, not in any distress. Denies any new complaints. Vital Signs reviewed. Blood pressure remains on the lower side. This morning, blood pressure was 99/72. Last temperature 97.7. The patient continues to receive 3% saline solution for her hyponatremia problem. Objective: HEENT: Examination unremarkable, Lungs: Clear to auscultation. Heart: Sounds normal. Abdomen: Soft. Bowel sounds normal. No guarding, rigidity, tenderness, or distention. Extremities: No leg edema. Laboratory Data: Last sodium level this morning was 122, potassium level 5.1, chloride 92, bicarb 18, BUN 31, creatinine 1.07. Impression: 1. Hyponatremia. 2. Liver cancer. 3. Diabetes mellitus. 4. Ascites. Plan: We will go ahead and continue 3% saline solution infusion with close monitoring of sodium level. The patient had a cortisol stimulation test done today and result came back normal. Throughout the day today, we have monitored her blood tests at dose of 3% saline solution was increased. Overall, prognosis is poor. Urine output is low and I will see her tomorrow for followup. Depending on her condition tomorrow, we will decide whether inpatient hospice is necessary or not. RACHELL/MODL Voice ID: [id number] Report ID: [id number] OLIVIA
[2020-03-08 08:38] VITALS: TEMP 98.2; O2SAT 98
[2020-03-08] MEDS ORDERED: MORPHINE 2 MG/ML SYR IV PRN (10:50)
[2020-03-08 11:46] VITALS: BP 73/60
--- NOTE | 2020-03-09 09:07 | DS ---
Date of Discharge: 03/08/2020 Disposition: The patient was discharged to inpatient hospice care. Physical Examination: General: When I saw her this morning she was lying in bed, very shallow breathing, using accessory muscles of respiration. Appears very weak. Lungs: Bilateral shallow but equal air entry. No rales. No wheezing. Heart: Sounds normal. Abdomen: Soft. Bowel sounds present. Extremities: No leg edema. Laboratory Data: Upon admission, white count 17.5, hemoglobin 15.2, platelets 188. On March 06, white count 15, hemoglobin 14.3, platelets 168. This morning, white count 16.6, hemoglobin 14.7. Her last chemistry this morning, sodium 130, potassium 5.7, chloride 99, bicarb 10, BUN 39, creatinine 2.09, glucose 172, calcium 6.9. Hospital Course: A 79-year-old female patient admitted to the hospital with weakness. Please see dictated H and P for more information. After patient was evaluated in the ER, she was admitted to the hospital. The patient's urinalysis was abnormal consistent with urinary tract infection. This was a straight cath urine specimen. Her serum sodium level was 120. She was given IV fluid with normal saline in the beginning. Her sodium level dropped down to 118. Urine osmolality, serum osmolality and urine sodium level was done. Cortisol stimulation test was done, which came back negative. No evidence of adrenal insufficiency. 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 Her sodium level improved predictably over period of 36 to 48 hours to 130 and the patient's overall condition started to decline. She went into septic shock. Blood pressure started dropping. We gave her IV fluid bolus and that helped her temporarily with blood pressure, but then her blood pressure started going down as of this morning again. She started becoming more and more acidotic. She was given IV bicarb as well. IV antibiotics were started from the time of admission and continued. The patient's prognosis was determined to be very poor and since the time of admission, I started talking to them going home with hospice care as of yesterday evening. Considering her condition started deteriorating this morning, I had a discussion with patient's and the patient's sister regarding inpatient hospice care and they both were agreeable to do. So Social Service was consulted for inpatient hospice care and patient was discharged from regular admission to change control specialist to inpatient hospice care and within short time after she was admitted to hospice, she today in the hospital. This was expected . Her cultures remained negative. Final Diagnoses: 1. Hyponatremia. 2. Volume depletion. 3. Failure to thrive. 4. Malnutrition. 5. Hepatocellular carcinoma. 6. Type 2 diabetes mellitus. 7. Mixed hyperlipidemia. 8. Hypertension. 9. Hypothyroidism. 10. Gastroesophageal reflux disease. 11. 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 12. Diverticulosis. 13. Hypocalcemia. 14. Urinary tract infection. RACHELL/MODL Voice ID: [id number] Report ID: [id number] MTDD
== END 2020-03-08 12:36 | disposition hospice, inpatient (51) | DRG 644 ==
LOC: ER 16:03 → ERHOLD 20:42 → 4TH 21:37 → ERHOLD 03-06 23:21
PROVIDERS: ADMIT Internal Medicine; ATTEND Internal Medicine
DX: E22.2 Syndrome of inappropriate secretion of antidiuretic hormone (principal); N39.0 Urinary tract infection, site not specified; Z94.4 Liver transplant status; C22.0 Liver cell carcinoma; R18.8 Other ascites; E44.0 Moderate protein-calorie malnutrition; E11.9 Type 2 diabetes mellitus without complications; K21.9 Gastro-esophageal reflux disease without esophagitis; E78.2 Mixed hyperlipidemia; E03.9 Hypothyroidism, unspecified; K74.60 Unspecified cirrhosis of liver; E86.9 Volume depletion, unspecified; K57.90 Diverticulosis of intestine, part unspecified, without perforation or abscess without bleeding; E83.51 Hypocalcemia; K76.0 Fatty (change of) liver, not elsewhere classified; I10 Essential (primary) hypertension; R62.7 Adult failure to thrive; Z68.30 Body mass index [BMI] 30.0-30.9, adult; Z90.49 Acquired absence of other specified parts of digestive tract; Z79.890 Hormone replacement therapy; Z66 Do not resuscitate; Z90.710 Acquired absence of both cervix and uterus; Z79.899 Other long term (current) drug therapy; Z79.4 Long term (current) use of insulin; Z20.828 Contact with and (suspected) exposure to other viral communicable diseases
CPT/HCPCS: 36415; 51702; 71045; 80048; 80061; 80076; 81003; 81015; 82024; 82140; 82533; 82947; 83605; 83735; 83880; 83930; 83935; 84300; 84439; 84443; 84484; 85025; 85610; 87040; 87077; 87086; 87088; 87186; 93005; 96361; 96365; 99285; J0696; J0834; J2370; J2405; J7030; J7040; J7060; J7131; U0002

== ENCOUNTER 2020-03-08 12:20 | Inpatient (IN) | payer OTHER ==
--- OUTSIDE RECORDS SUMMARY | 2020-03-08 12:43 | XMS REPORT | Clinical Summary ---
:1940 Author Organization [facility] Address [address] [place] [address] Care Team Providers Name Role Phone Krista [...] needs to be seen by nicolasa rhodes minister helper. 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 Portal hypertension 09/23/2012 Diabetes mellitus 09/23/2012 Last [...] Dx); Eric Osteopenia, uns pecified location after 03/08/2019 Family History Medical History Relation Name Comments [...] (#1) 2019 01/15/2018 Implants Implanted Type Area Log Washer Device Shelf Model / Identifier Expiration Serial / Date Lot Device Clsr Angio-Seal Vip 6fr [id number] - [id number] Cardiovascular N/A: ST JACKELYN 01/19/2017 [id number] / Implanted: Qty: 1 on 06/19/2016 by Nerissa Cuevas MD at [facility] [place] MED:CARDIAC / SURG [id number] Procedures Procedure Name Priority Date/Time Associated Diagnosis Comme nts XR DXA BONE DENSITY Routine 10/27/2019 2:55 PM Compression fr acture Results for this STUDY CDT of lumbar vertebra procedure are in with routine the results healing, unspecified section . lumbar vertebral level, subsequent encounter Osteopenia, unspecified location after 03/08/2019 Results XR DXA Bone Density Study (10/27/2019 2:55 PM CDT) Specimen Narrative Performed At FINAL REPORT [place] EXAM: Bone mineral density study HISTORY: Compression [...] Report Verified Date/Time: 10/28/2019 10:00:07 Reading Location: [place] [address] Procedure Note Interface, External Ris In - [...] Verified Date/Time: 10/28/2019 1 0:00:07 Reading Location: [place] [address] Performing Organization Address City/State/Zipcode Phone Number GE RIS after 03/08/2019 Insurance Payer Benefit Plan / Subscriber ID Effective Dates Phone Addre ss Type Group AETNA - AETNA MEDICARE [id number] 2013-Mery [phone] [address] MEDICARE MGD HMO POS PPO t 2 [id number] [facility] [place] [place] [id number] Advance Directives For more information, please contact: [phone] Code Status Date Activated Date Inactivated Comments [...]
--- OUTSIDE RECORDS SUMMARY | 2020-03-08 12:46 | XMS REPORT | Continuity of Care Document ---
:1940 Author Organization [employer] Care Team Providers Name Role Phone [employer] Unavailable Un available Problems Problem Status Onset Classification Date Comments Sourc e Date Reported S72.032D - "DISPL Active [facility] MIDCERVICAL FX L 017 [place] FEMUR LEFT FEMORAL NECK Active [facility] FX 017 [facility] RECTAL BLEEDING Active [place] 013 GI BLEEDING Active [facility] east 013 GI BLEED Active [facility] st 013 Hematochezia Active Problem 02/01/2017 Data [place] as (finding) 013 migrated Medical from [facility], Centricity OPID on 09/18/14. [facility] Internal Active Problem 02/01/2017 Data [facility] hemorrhoids 013 migrated Medical without from [facility], complication Centricity OPID (disorder) on 09/18/14. [facility] Residual Active Problem 02/01/2017 Data [facility] hemorrhoidal skin 013 migrated Me dical tags (disorder) from [facility] er, Centricity OPID on 09/18/14. 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 [facility] Esophageal Active Problem 02/01/2017 Data [facility] varices 013 migrated Medical (disorder) from [facility], Centricity OPID on 09/18/14. [facility] Portal Active Problem 02/01/2017 Data [facility] hypertension 013 migrated Medical (disorder) from [facility], Centricity OPID on 09/18/14. [facility] Anemia (disorder) Resolved Problem 02/01/2017 M Ber[facility], OPID [facility] [place] Cir[place]osis - Resolved Problem [place] [facility] [facility]order[facility], OP[facility] [place] DM II [Diabetes Resolved Problem 02/01/2017 [facility] mellitus type Medica l II](Confirmed) Tommy r, OPID [facility] Hemorrhoids Resolved Problem [place] [facility] [facility], [facility],M Beronica [facility] Essential Resolved Problem 02/01/2017 [facility] hypertension Medical (disorder) Center, OPID [facility] 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[facility] neoplasm of liver Me dical (disorder) Center, OPID [facility] Metatarsal bone Active Problem 02/01/2017 [facility] fracture Medical (disorder) Center, OPID [facility] Diverticulum Resolved Problem 02/17/2013 [place] theast (morphologic abnormality) DM II [Diabetes Resolved Problem 02/17/2013 [place] mellitus type II] HTN Resolved Problem 02/17/2013 [facility] ast 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 Diverticulosis Resolved Problem 01/31/2013 [place] GASTROINTEST Active [place] HEMORR NOS FRACTURE OF UNSP Active [facility] PART OF NECK OF [facility] LEFT FE Center Medications Medication Details Route Status Patient Ordering Order Source Instructions Provider Date tramadol 50 mg = 1 Active 01/11/ Kirk hydrochloride 50 tab, PO, Q6H, 2016 edical MG Oral Tablet PRN Pain Center Score 6-10, X 5 day, # 20 tab, 0 Refill(s) enoxaparin 30 30 mg = 0.3 Active 01/11/ [place] mg/0.3 mL mL, SUB-Q, 2017 Medical subcutaneous [id number], Center solution Stop date is 01/26/17, 0 Refill(s) Ergocalciferol 50,000 Active 01/11/ Kirk 66018 UNT Oral IntlUnit = 1 2016 [facility] stephenie Capsule cap, PO, Q7D, Center 0 [...] and stir. Lactulose 667 Notes: (Same Inactive [facility] exas MG/ML Oral as:Chronulac) 2017 [facility] potassium Notes: (Same Inactive [facility] phosphate-sodium as: Phos-NaK) 2017 edical phosphate 155 Each 1.5 gm Cente r mg-350 mg oral pkt has 250mg tablet phosphorous. Mix w/2.5oz water and stir. Monobasic Notes: (Same Inactive [facility] potassium as: Phos-NaK) 2017 Medical phosphate 155 MG Each 1.5 gm Ce nter / Sodium pkt has 250mg Phosphate, phosphorous. Monobasic 350 MG Mix w/2.5oz Oral Tablet water and stir. Lovenox Notes: (Same No Longer [facility] as: Lovenox) Active 2017 Medical [place] Magnesium Notes: WASTE: Inactive [facility] s Sulfate F/P - Sink; E 2017 Medical [facility] Trash Bin influenza virus Notes: (Same Inactive [facility] vaccine, as: Fluzone 2017 Medical inactivated Quadrivalent, [place] Fluarix Quadrivalent) For 3 years of age and older (0.5 mL IM) Shake well before use cyclobenzaprine Notes: (Same No Longer [facility] [place] As: Flexeril) Active 2017 Medical [place] Ergocalciferol Notes: (Same No Longer [place] [address] UNT Oral as: Vitamin Active 2017 Medic al Capsule D) "Do Not Center Crush" Calcium Notes: No Longer [facility] Carbonate 1250 (calcium Active 2017 Medical MG / carbonate-vit Center Cholecalciferol D 400 UNT Chewable 500mg-400unit Tablet TAB) Same as: Oyster-D, OsCal-D Baclofen Notes: 5 mg No Longer [facility] =1/2 of 10 mg Active 2017 Medical Tab (Same As: [place] Lioresal) Cefazolin Notes: (Same No Longer [place] [...] 01/05/17 10:33:00 CDT neostigmine Route: IV, Inactive [facility] (ANES) Drug form: 2017 Medical INJ, ONCE, Center Stop date: 01/05/17 10:33:00 CDT calcium chloride Route: IV, Inactive [facility] (ANES) Drug form: 2016 Medical INJ, ONCE, Center Stop date: 01/05/17 10:33:00 CDT dexamethasone Route: IV, Inactive [place] (ANES) Drug form: 2017 Medical INJ, ONCE, Center Stop date: 01/05/17 10:02:00 CDT esmolol (ANES) Route: IV, Inactive [place] Drug form: 2017 Medical INJ, ONCE, Center Stop date: 01/05/17 9:07:00 CDT famotidine Route: IV, Inactive [facility] (ANES) Drug form: 2017 Medical INJ, ONCE, Center Stop date: 01/05/17 9:07:00 CDT ferrous sulfate Notes: Give No Longer [place] 325 MG Oral with food. Active 2017 Medical Tablet [Feosol] "Do Not Center Crush" Furosemide 20 MG Notes: (Same No Longer [facility] Oral Tablet as: Lasix) Active 2017 Medical [Lasix] May cause GI Center upset. Give with food or milk. Zetia Notes: (Same No Longer [facility] as: Zetia) Active 2017 Medical Center Cholecalciferol Notes: Same No Longer [facility] as : Vitamin Active 2017 Medical D3 Center Streptococcus Notes: Shake Inactive [place] pneumoniae well prior to 2017 Medical serotype 1 use (Same Center capsular antigen as: Prevnar diphtheria 13) [id number] protein conjugate vaccine / Streptococcus pneumoniae serotype 14 capsular antigen diphtheria [id number] protein conjugate vaccine / Streptococcus pneumoniae serotype 18C capsular antigen d Spironolactone Notes: (Same No Longer [place] As: Active 2017 Medical Aldactone) Center senna 8.6 mg Notes: (Same No Longer [place] oral tablet as: Senokot) Active 2017 [facility] Center Protonix Notes: Tablet No Longer [place] should not be Active 2017 [facility] chewed or Center crushed. (Same as: Protonix) phenylephrine Route: IV, Inactive [place] (ANES) Drug form: 2016 Medical INJ, ONCE, Center Stop date: 01/05/17 8:52:00 CDT lidocaine (ANES) Route: IV, Inactive [facility] Drug form: 2016 Medical INJ, ONCE, Center Stop date: 01/05/17 8:47:00 CDT propofol (ANES) Route: IV, Inactive [place] Drug form: 2016 Medical INJ, ONCE, Center Stop date: 01/05/17 8:47:00 CDT rocuronium Route: IV, Inactive [place] (ANES) Drug form: 2017 Medical INJ, ONCE, Center Stop date: 01/05/17 8:47:00 CDT ondansetron Route: IV, Inactive [facility] (ANES) Drug form: 2016 Medical INJ, ONCE, Center Stop date: 01/05/17 8:47:00 CDT ceFAZolin (ANES) Route: IV, Inactive [facility] Drug form: 2017 Medical INJ, ONCE, Center [...] 01/05/17 8:40:00 CDT Hydromorphone 0.5 mg, Inactive [place] Route: IVP, 2016 Medical Q5Min, Dosing Center Weight 81.818, kg, PRN Pain Score 7-10, Start date: 01/05/17 8:40:00 CDT, Duration: 4 doses or times, Stop date: Limited # of times Naloxone 0.4 mg, Inactive [place] Route: IVP, 2016 Medical Q2MIN, Dosing [...] water Center or juice. (Same as: Miralax) [place]-3 Acid Notes: (Same No Longer [place] Ethyl Esters as: MaxEPA, Active 2016 Medical (SENIOR CARE) 1000 MG [place] 3 fish Cente r Oral Capsule oil ) [Lovaza] Non-Formulary Drug NovoLOG 70/30 55 unit, Inactive [place] Route: SUB-Q, 2017 Medical BID-Before Center [...] 50% 25 gm, 50 mL, No Longer [place] Syringe Route: IVP, Active 2016 Medical Drug Form: Center INJ, Dosing Weight 81.818, kg, PRN, PRN Blood Glucose Results, Start date: 01/04/17 11:51:00 CDT, Duration: 30 day, Stop date: 02/03/17 11:50:00 CDT Glucagon 1 mg, Route: No Longer [place] IM, Drug Active 2016 Medical form: Center PDR/INJ, PRN, Dosing Weight 81.818, kg, PRN Blood Glucose Results, Start date: 01/04/17 11:51:00 CDT, Duration: 30 day, Stop date: 02/03/17 11:50:00 CDT Oxycodone Notes: (Same No Longer [place] Hydrochloride 5 as: Active 2016 Medical MG Oral Tablet Roxicodone) Cente r Lactulose 667 Notes: (Same No Longer [place] MG/ML Oral as:Chronulac) Active 2016 Medical Solution [place] Furosemide 20 MG 20 mg = 1 Active [place] Oral Tablet tab, PO, 2017 Medical [Lasix] Daily, # 30 Center tab, 0 Refill(s) Linagliptin 5 MG 5 mg = 1 tab, Active 01/04/ H [place] Oral Tablet PO, Daily, # 2016 Medical [Tradjenta] 30 tab, 3 Center Refill(s) lactulose 20 g = 1 Pack, PO, No Longer 01/04/ H [place] oral powder BID, # 20 gm, Active 2016 Medica l 0 Refill(s) Center Lovaza 1,000 mg =, No Longer [place] PO, BID, 0 Active 2016 Medical Refill(s) [place] NovoLOG 70/30 55 unit, Active [place] SUB-Q, 2017 Medical BID-Before Center Meals, [...] 11:38:00 CDT Morphine Notes: (Same No Longer [place] as:MORPhine Active 2016 Medical Sulfate) Center Ondansetron Notes: (Same [place] Longer [place] as: Zofran) Active 2016 Medical Center MEDICATION WASTE Product Size: 4 mg Product Wasted: ___ mg Ondansetron Notes: (Same Inactive [place] as: Zofran) 2017 Medical Center MEDICATION WASTE Product Size: 4 mg Product Wasted: ___ mg Morphine Notes: (Same Inactive [place] as:MORPhine 2016 Medical Sulfate) [place] Lasix 20 mg oral 20 mg, 1 [...] tab, Inactive [place] tablet Route: PO, 2012 [facility] Drug form: TAB, Daily, Dosing Weight 84.3, kg, Start date: 02/10/13 9:00:00, Duration: 30 day, Stop date: 03/11/13 9:00:00(Same as: Lasix) May cause GI upset. Give with food or milk. Tessalon Perles 100 mg, 1 No Longer [place] 02/10/ MH cap, Route: Active 2012 [facility] PO, Drug form: CAP, TID, Dosing Weight 84.3, kg, PRN Cough, Start date: 02/09/13 23:03:00, Duration: 30 day, Stop date: 03/11/13 23:02:00(Same As: Tessalon Perles) "Do Not Crush" spironolactone 50 mg, 2 tab, No Longer [place] MH Route: PO, Active 2012 [facility] Drug form: TAB, BID, Dosing Weight 84.3, kg, Start date: 02/09/13 17:00:00, Duration: 30 day, Stop date: 03/11/13 9:00:00(Same As: Aldactone) Protonix 40 mg, 1 tab, No Longer [place] MH Route: PO, Active 2012 [facility] Drug form: ECTAB, Q12H, Dosing Weight 84.3, kg, Start date: 02/08/13 21:00:00, Stop date: 03/10/13 9:00:00Tablet should not be chewed or crushed. (Same as: Protonix) Anusol-HC 2.5% 1 appl, No Longer Voloyiannis 02/08/ MH rectal cream Route: SC, Active 2012 [place] with applicator BID, Drug form: CRM, Start date: 02/08/13 17:00:00, Duration: 30 day, Stop date: 03/10/13 9:00:00 HC Pramoxine 1 appl, TOP, Active Voloyiannis 02/08/ MH 2.5%-1% topical TID, 28 gm, 2012 [place] cream Substitution Allowed, Maintenance, CRM nitroglycerin 0.4 mg, 1 No Longer [place] 02/08/ MH 0.4 mg tab, Route: Active 2012 [facility] sublingual SL, Drug tablet form: TAB, Q5Min, PRN Chest Pain, Start date: 02/08/13 9:05:00, Duration: 30 day, Stop date: 03/10/13 8:04:00(Same as:Nitroquick , Nitrostat) "Do Not Crush" Sublingual tablet atropine 0.5 mg, 5 mL, No Longer [place] Route: IVP, Active 2012 [facility] Drug form: INJ, PRN, PRN Bradycardia, Start date: 02/08/13 9:05:00, Duration: 30 day, Stop date: 03/10/13 8:04:00 Sodium Chloride 1,000 mL, No Longer Maxian 0.9% IV 1,000 mL Rate: 25 Active 2012 [facility] ast ml/hr, Infuse over: 40 hr, Route: IV, Dosing Weight 84.3 kg, Total Volume: 1,000, Start date: 02/06/13 14:38:00, Duration: 1 day, Stop date: 02/07/13 14:37:00 Lidocaine 15 ml, Route: No Longer [place] Viscous 2% PO, Q3H, Drug Active 2012 [facility] mucous membrane form: SOLN, solution PRN Other -See Comment, Start date: 02/06/13 11:31:00, Duration: 30 day, Stop date: 03/08/13 11:30:00, post banding chest pain(Same as: Xylocaine Viscous) levothyroxine 50 microgram, No Longer [place] 1 tab, Route: Active 2012 [facility] PO, Drug form: TAB, Q6AM, Dosing Weight 84.3, kg, Start date: 02/06/13 6:00:00, Duration: 30 day, Stop date: 03/07/13 6:00:00Take 1 hour before or 2 hours after meal; Enteral feeds may interefere with the absorption of this medication.(S rosey as:Levothroid , Synthroid) Sodium Chloride 250 mL, Rate: Inactive [place] 0.9% IV 250 mL 30 ml/hr, 2012 [facility] Infuse over: 8.3 hr, Route: IV, Dosing Weight 84.3 kg, Total Volume: 250, Start date: 02/05/13 10:43:00, Duration: 12 hr, Stop date: 02/05/13 22:42:00 Evista 60 mg, PO, Active Daily, 2012 Substitution Allowed Evista 60 mg, 1 tab, No Longer [place] Route: PO, 2012 [facility] Drug form: TAB, Daily, Dosing Weight [...] cap, No Longer [place] Route: PO, 2012 [facility] Drug form: CAP, Q8H, Dosing Weight 84.3, kg, Start date: 02/05/13 9:00:00, Duration: 30 day, Stop date: 03/07/13 8:00:00(Same as: Lyrica) Zetia 10 mg, 1 tab, No Longer [place] Route: PO, 2012 [facility] Drug form: TAB, Daily, Dosing Weight 84.3, kg, Start date: 02/05/13 9:00:00, Duration: 30 day, Stop date: 03/06/13 9:00:00(Same as: Zetia) Saline Flush 5 ml, Route: No Longer [place] 0.9% IVP, Drug Active 2012 [facility] Form: INJ, Dosing Weight 79.545, kg, PRN, PRN Line Flush, Start date: 02/05/13 0:57:00, Duration: 30 day, Stop date: 03/06/13 23:56:00(Same as: BD Posiflush) Sodium Chloride 1,000 mL, No Longer [place] 0.9% IV 1,000 mL Rate: 125 2012 [facility] ml/hr, Infuse over: 8 hr, Route: IV, Dosing Weight 79.545 kg, Total Volume: 1,000, Start date: 02/05/13 0:57:00, Duration: 30 day, Stop date: 03/07/13 0:56:00 octreotide 50 microgram, Inactive [place] Route: IVP, 2012 [facility] ONCE, Dosing Weight 79.545, kg, Start date: 02/05/13 0:57:00, Duration: 1 doses or times, Stop date: 02/05/13 0:57:00 pantoprazole 80 mg, Route: Inactive [place] IVP, ONCE, 2012 [facility] Dosing Weight 79.545, kg, for loading dose, Start date: 02/05/13 0:57:00, Duration: 1 doses or times, Stop date: 02/05/13 0:57:00 pantoprazole 80 100 mL, Rate: No Longer [place] mg + Sodium 10 ml/hr, Active 2012 [facility] Chloride 0.9% IV Infuse over: 100 mL 10 hr, Route: IV, Dosing Weight 79.545 kg, Total Volume: 100, Start date: 02/05/13 0:57:00, Duration: 30 day, Stop date: 03/07/13 0:56:00 octreotide 1,250 248.75 mL, No Longer [place] microgram + Rate: 10 Active 2012 [facility] Sodium Chloride ml/hr, Infuse 0.9% IV 248.75 over: 25 hr, mL Route: IV, Dosing Weight 79.545 kg, Total Volume: 250, Start date: 02/05/13 0:57:00, Duration: 30 day, Stop date: 03/07/13 0:56:00, Infuse at 50 mcg/hr. Final concentration = 50 mcg/10 mLInfuse at 50 mcg/hr. Final concentration = 50 mcg/10 mL insulin aspart 10 unit, 0.1 No Longer [place] mL, Route: Active 2012 [facility] SUB-Q, Drug form: SOLN, Sliding Scale, [...] Longer [place] Syringe mL, Route: Active 2012 [facility] IVP, Drug Form: INJ, Dosing Weight 79.545, kg, PRN, PRN Blood Glucose Results, Start date: 02/05/13 0:57:00, Duration: 30 day, Stop date: 03/06/13 23:56:00 glucagon 1 mg, Route: No Longer [place] IM, Drug Active 2012 [facility] form: PDR/INJ, PRN, Dosing Weight 79.545, kg, PRN Blood Glucose Results, Start date: 02/05/13 0:57:00, Duration: 30 day, Stop date: 03/06/13 23:56:00 Protonix 80 mg, Route: Inactive Lilianen IVP, Drug 2012 [facility] form: INJ, ONCE, Start date: 02/04/13 23:43:00, Stop date: 02/04/13 23:43:00For IV push reconstitute with 10 ml 0.9% sodium chloride and push over 2 minutes. (Same as: Protonix) pantoprazole 80 100 mL, Rate: No Longer [place] mg + Sodium 10 ml/hr, Active 2012 [facility] Chloride 0.9% IV Infuse over: 100 mL 10 hr, Route: IVPB, Dosing Weight 79.545 kg, Total Volume: 100, Infuse at 8 mg / hr for 72 hours for GI bleeding, Start date: 02/04/13 23:35:00, Duration: 72 hr, Stop date: 02/07/13 23:34:00 Sodium Chloride 20 mL, Rate: Inactive [place] 0.9% (Bolus) IV 240 ml/hr, 2012 [facility] 20 mL + Infuse over: pantoprazole 80 5 minutes, mg Route: IVP, Dosing Weight 79.545 kg, Total Volume: 20, Start date: 02/04/13 23:35:00, Duration: 1 doses or times, Stop date: 02/04/13 23:39:00 octreotide 1,250 248.75 mL, No Longer Humberto microgram + Rate: 10 Active 2012 [facility] Sodium Chloride ml/hr, Infuse 0.9% IV 248.75 over: 25 hr, mL Route: IV, Dosing Weight 79.545 kg, Total Volume: 250, Start date: 02/04/13 23:34:00, Duration: 30 day, Stop date: 03/06/13 23:33:00 Octreotide 50 microgram, Inactive Humberto (bolus) 0.5 mL, 2012 [facility] Route: IVP, Drug form: INJ, ONCE, Dosing Weight 79.545, kg, Start date: 02/04/13 23:34:00, Duration: 1 doses or times, Stop date: 02/04/13 23:34:00(Same As: Sandostatin). Refrigerate. Centrum Silver 1 tab, PO, Active oral tablet Daily, 2012 tab, Substitution Allowed, Maintenance, TAB Align 4 mg, Daily, Active Substitution 2012 Allowed pantoprazole 40 mg, Route: Inactive Humberto IVP, ONCE, 2012 [facility] Dosing Weight 79.545, kg, For IV push reconstitute with 10 ml 0.9% sodium chloride and push over at least 3 minutes, Priority: STAT, Start date: 02/04/13 19:51:00, Stop date: 02/04/13 19:51:00 Saline Flush 5 mL, Route: No Longer Humberto 0.9% IVP, Drug Active 2012 [facility] Form: INJ, Dosing Weight 79.545, kg, PRN, PRN Line Flush, Start date: 02/04/13 19:51:00, Duration: 24 hr, Stop date: 02/05/13 19:50:00(Same as: BD Posiflush) sitagliptin 50 mg, 2 tab, Inactive Rahim Route: PO, 2012 [facility] Drug form: TAB, BID, Dosing Weight 84.091, kg, Start date: 01/27/13 9:00:00, Duration: 30 day, Stop date: 02/25/13 17:00:00Same as Chinia metFORmin 1000 1,000 mg, 2 Inactive Rahim mg oral tablet tab, Route: 2012 [facility] PO, Drug form: TAB, BID, Dosing [...] IV 1,000 mL Rate: 25 Active 2012 [facility] ast ml/hr, Infuse over: 40 hr, Route: IV, Dosing Weight 84.091 kg, Total Volume: 1,000, Start date: 01/26/13 9:40:00, Duration: 1 day, Stop date: 01/27/13 9:39:00 GoLYTELY 4,000 ml, Inactive Jasmeet Route: PO, 2012 [facility] Drug Form: PDR/REC, Dosing Weight 84.091, kg, ONCE, Start date: 01/25/13 15:00:00, Duration: 1 doses or times, Stop date: 01/25/13 15:00:00(poly ethylene glycol electrolyte solution 4 Liter bottle) (Same as: Golytely, Colyte) NS IV, 30 ml/hr, No Longer Jasmeet PRN, PRN Active 2012 [facility] Blood Transfusion, Start date: 01/25/13 11:50:00, Duration: 1, 250 ml Vitamin K1 10 mg, 1 mL, Inactive Jasmeet Route: SUB-Q, 2012 [facility] Drug form: INJ, ONCE, Dosing Weight 84.091, kg, Start date: 01/25/13 10:31:00, Duration: 1 doses or times, Stop date: 01/25/13 10:31:00(Same as: Aqua-Mephyton , Vitamin K) Zetia 10 mg, 1 tab, No Longer [place] Route: PO, Active 2012 [facility] Drug form: TAB, Daily, Dosing Weight 79.545, kg, Start date: 01/24/13 9:00:00, Duration: 30 day, Stop date: 02/22/13 9:00:00(Same as: Zetia) Evista 60 mg, 1 tab, No Longer [place] Route: PO, Active 2012 [facility] Drug form: TAB, Daily, Dosing Weight 79.545, kg, Start date: 01/24/13 9:00:00, Duration: 30 day, Stop date: 02/22/13 9:00:00(Same as:Evista) "Do Not Crush" propranolol 40 mg, 1 tab, No Longer [place] Route: PO, Active 2012 [facility] Drug form: TAB, BID, Dosing Weight 79.545, kg, Start date: 01/24/13 9:00:00, Duration: 30 day, Stop date: 02/22/13 17:00:00Give with food. (Same as: Inderal) influenza virus 0.5 mL, Inactive SYSTEM vaccine, Route: IM, 2012 [facility] inactivated Drug Form: SUSP, Start date: 01/24/13 9:00:00, Stop date: 01/24/13 9:00:00 Protonix 40 mg, Route: No Longer Rahim IV, Drug Active 2012 [facility] form: INJ, Q12H, Dosing Weight 79.545, kg, Start date: 01/24/13 9:00:00, Duration: 30 day, Stop date: 02/22/13 21:00:00For IV push reconstitute with 10 ml 0.9% sodium chloride and push over 2 minutes. (Same as: Protonix) magnesium 2 gm, 50 mL, Inactive [place] MH sulfate 2 gm in Route: IV, 2012 [facility] Water 50 ml Drug form: INJ, ONCE, Dosing Weight 84.091, kg, Priority: Routine, Start date: 01/24/13 6:37:00, Stop date: 01/24/13 6:37:00 nitroglycerin 0.4 mg, 1 No Longer Rahim 01/24/ MH 0.4 mg tab, Route: Active 2012 [facility] sublingual SL, Drug tablet form: TAB, [...] MH oral capsule PO, TID, 90 [address] [facility] st cap, Substitution Allowed, CAP Lovaza oral 2,000 mg, 2 Active MH capsule cap, PO, BID, 2012 120 cap, Substitution Allowed, Maintenance, CAP Lidoderm 5% Substitution Active topical film Allowed 2012 (patch) levothyroxine 50 50 microgram, Active 01/24/ H mcg (0.05 mg) 1 tab, PO, 2012 [facility] st oral tablet Daily, 30 tab, [...] cap, Active MH oral delayed PO, 2012 [facility] release capsule Substitution Allowed, CAP Sodium Chloride 250 mL, Rate: No Longer Grijalva 10/05/ MH 0.9% (titrate) 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 [facility] 250 mL use with blood product administratio n., Dosing Weight 79.545, kg, Route: IV, Total Volume: 250, Priority: Routine, Duration: 30 day, Stop date: 02/22/13 22:44:00, Replace Every: 24 hr Sodium Chloride 250 mL, Rate: No Longer [place] 10/05/ MH 0.9% (titrate) 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 [facility] 250 mL use with blood product administratio n, Dosing Weight 79.545, kg, Route: IV, Total Volume: 250, Duration: 30 day, Stop date: 02/22/13 20:51:00, Replace Every: 24 hr Allergies, Adverse Reactions, Alerts No Known Medication Allergies Immunizations Immunization Date Site Status Last Updated Comments Sour ce Given influenza virus Right completed John DANIEL [place] vaccine, 7 Deltoid [facility] inactivated Center,M [facility] pneumococcal Left completed Juan C Giles s 13-valent 7 [facility] Right completed Seferino DANIEL [place] vaccine, 3 Deltoid [facility] inactivated Center,M H OPID [facility] influenza [...] PANEL Potassium 3.3 3.5 - 5.1 01/11 [facility] CHEM PANEL Chloride Lvl 103 95 - 109 01/11 [facility] CHEM PANEL Sodium Lvl 142 135 - 145 01/11 [facility] CHEM PANEL Calcium Lvl 8.3 8.5 - 10.5 01/11 [facility] CHEM PANEL AGAP 12.3 10.0 - 01/11 . [facility] CHEM PANEL CO2 30 24 - 32 01/11 [facility] CHEM PANEL Glucose Lvl 136 70 - 99 01/11 [facility] CHEM PANEL BUN 7 7 - 22 01/11 [facility] CHEM PANEL Creatinine 0.56 0.50 - 01/11 [facility] Lv 1.40 [facility] HEMATOLOGY PT 16.1 12.0 - 01/11 [place] 14.7 /2016 [facility] HEMATOLOGY INR 1.26 0.85 - 01/11 [place] 1.17 [facility] CHEM PANEL Phosphorus 3.0 2.5 - 4.5 01/11 [facility] CHEM PANEL Magnesium 1.4 1.8 - 2.4 01/11 [facility] HEMATOLOGY Platelet 115 133 - 450 01/11 [facility] HEMATOLOGY MPV 9.2 7.4 - 10.4 01/11 [facility] HEMATOLOGY RDW 14.7 11.5 - 01/11 [place] 14.5 [facility] HEMATOLOGY MCHC 33.9 32.0 - 01/11 [place] 36.0 /2016 [facility] HEMATOLOGY MCH 31.6 27.0 - 01/11 [place] 31.0 [facility] HEMATOLOGY MCV 93.3 80.0 - 01/11 [place] 98.0 [facility] HEMATOLOGY Hgb 10.6 12.0 - 01/11 [place] 16.0 [facility] HEMATOLOGY WBC 6.9 3.7 - 10.4 01/11 [facility] HEMATOLOGY Hct 31.2 36.0 - 01/11 [place] 48.0 [facility] HEMATOLOGY RBC 3.34 4.20 - 01/11 [place] 5.40 [facility] HEMATOLOGY Segs 56.2 45.0 - 01/11 [place] 75.0 /2017 [facility] HEMATOLOGY Lymphocytes 26.0 20.0 - 01/11 [place] 40.0 [facility] HEMATOLOGY Eosinophils 0.2 0.0 - 0.5 01/[place] # /2016 [facility] HEMATOLOGY Lymphocytes 1.8 1.0 - 5.5 01/11 [place] # /2016 [facility] HEMATOLOGY Monocytes # 1.0 0.0 - 0.8 01/[place]2016 [facility] HEMATOLOGY Basophils 0.7 0.0 - 1.0 01/11 [facility] HEMATOLOGY Monocytes 14.1 2.0 - 12.0 01/11 [facility] HEMATOLOGY Eosinophils 3.0 0.0 - 4.0 01/11 [facility] HEMATOLOGY Segs-Bands # 3.9 1.5 - 8.1 01/11 [facility] CHEM PANEL Phosphorus 2.4 2.5 - 4.5 01/10 [facility] CHEM PANEL Magnesium 1.8 1.8 - 2.4 01/10 [facility] CHEM PANEL eGFR 63 01/10 [facility] Comment: The Medical eGFR is Center [...] PANEL CO2 27 24 - 32 01/10 [facility] CHEM PANEL Chloride Lvl 99 95 - 109 01/10 [facility] CHEM PANEL Calcium Lvl 8.7 8.5 - 10.5 01/10 [facility] CHEM PANEL AGAP 13.3 10.0 - 01/10 20.0 [facility] CHEM PANEL Glucose Lvl 152 70 - 99 01/10 [facility] CHEM PANEL Sodium Lvl 136 135 - 145 01/10 [facility] CHEM PANEL Creatinine 0.91 0.50 - 01/10 [facility] 1.40 [facility] CHEM PANEL Potassium 3.3 3.5 - 5.1 01/10 [facility] CHEM PANEL BUN 8 7 - 22 01/10 [facility] HEMATOLOGY MCH 31.9 27.0 - 01/10 [place] 31.0 [facility] HEMATOLOGY Platelet 129 133 - 450 01/10 [facility] HEMATOLOGY MPV 9.4 7.4 - 10.4 01/10 [facility] HEMATOLOGY MCHC 34.5 32.0 - 01/10 [place] 36.0 /2016 [facility] HEMATOLOGY RDW 14.8 11.5 - 01/10 [place] 14.5 [facility] HEMATOLOGY Hct 35.1 36.0 - 01/10 [place] 48.0 /2016 [facility] HEMATOLOGY WBC 7.6 3.7 - 10.4 01/10 [facility] HEMATOLOGY RBC 3.80 4.20 - 01/10 [place] 5.40 /2016 [facility] HEMATOLOGY Hgb 12.1 12.0 - 01/10 [place] 16.0 [facility] HEMATOLOGY MCV 92.5 80.0 - 01/10 [place] 98.0 /2016 [facility] HEMATOLOGY INR 1.19 0.85 - 01/10 [place] 1.17 [facility] HEMATOLOGY PT 15.4 12.0 - 01/10 [place] 14.7 /2016 [facility] HEMATOLOGY Lymphocytes 27.4 20.0 - 01/10 [place] 40.0 [facility] HEMATOLOGY Monocytes 13.0 2.0 - 12.0 01/10 [facility] HEMATOLOGY Eosinophils 3.3 0.0 - 4.0 01/10 [facility] HEMATOLOGY Segs 55.8 45.0 - 01/10 [place] 75.0 [facility] HEMATOLOGY Basophils 0.5 0.0 - 1.0 01/10 [facility] HEMATOLOGY Lymphocytes 2.1 1.0 - 5.5 01/[place] # /2016 [facility] HEMATOLOGY Monocytes # 1.0 0.0 - 0.8 01/10 [place] [facility] HEMATOLOGY Eosinophils 0.3 0.0 - 0.5 01/10 [place] # /2016 [facility] HEMATOLOGY Segs-Bands # 4.2 1.5 - 8.1 01/10 [place] [facility] CHEM PANEL Phosphorus 2.5 2.5 - 4.5 01/09 [facility] CHEM PANEL Magnesium 1.6 1.8 - 2.4 01/09 [facility] CHEM PANEL eGFR 89 01/09 Result [...] PANEL BUN 8 7 - 22 01/09 [facility] CHEM PANEL Sodium Lvl 135 135 - 145 01/09 [facility] CHEM PANEL Creatinine 0.62 0.50 - 01/09 [facility] 1.40 [facility] CHEM PANEL Chloride Lvl 98 95 - 109 01/09 [facility] CHEM PANEL CO2 27 24 - 32 01/09 [facility] CHEM PANEL Calcium Lvl 8.5 8.5 - 10.5 01/09 [facility] CHEM PANEL Potassium 3.6 3.5 - 5.1 01/09 Result [facility] Comment: [facility] Slightly Hemolyzed. CHEM PANEL Glucose Lvl 205 70 - 99 01/09 [facility] CHEM PANEL AGAP 13.6 10.0 - 01/09 [facility] 20.0 [facility] HEMATOLOGY Basophils # 0.1 0.0 - 0.2 01/09 [facility] HEMATOLOGY Eosinophils 0.3 0.0 - 0.5 01[place] [facility] HEMATOLOGY Monocytes # 1.0 0.0 - 0.8 01/09 [facility] HEMATOLOGY Lymphocytes 2.0 1.0 - 5.5 01/09 [place] # /2016 [facility] HEMATOLOGY Eosinophils 3.8 0.0 - 4.0 01/09 a s /2016 [facility] HEMATOLOGY Monocytes 13.6 2.0 - 12.0 01/09 [facility] HEMATOLOGY Lymphocytes 27.2 20.0 - 01/09 [place] 40.0 /2016 [facility] HEMATOLOGY Segs-Bands # 4.0 1.5 - 8.1 01/09 [facility] HEMATOLOGY Segs 54.7 45.0 - 01/09 [place] 75.0 [facility] HEMATOLOGY Basophils 0.7 0.0 - 1.0 01/09 [facility] HEMATOLOGY PT 15.3 12.0 - 01/09 [place] 14.7 [facility] HEMATOLOGY INR 1.18 0.85 - 01/09 [place] 1.17 [facility] HEMATOLOGY Platelet 119 133 - 450 01/09 [facility] HEMATOLOGY RDW 14.7 11.5 - 01/09 [place] 14.5 [facility] HEMATOLOGY MPV 9.6 7.4 - 10.4 01/09 [facility] HEMATOLOGY MCHC 34.6 32.0 - 01/09 [place] 36.0 [facility] HEMATOLOGY MCV 92.1 80.0 - 01/09 [place] 98.0 [facility] HEMATOLOGY Hct 33.2 36.0 - 01/09 [place] 48.0 [facility] HEMATOLOGY MCH 31.9 27.0 - 01/09 [place] 31.0 [facility] HEMATOLOGY RBC 3.60 4.20 - 01/09 [place] 5.40 /2016 [facility] HEMATOLOGY Hgb 11.5 12.0 - 01/09 [place] 16.0 [facility] HEMATOLOGY WBC 7.2 3.7 - 10.4 01/09 [facility] CHEM PANEL Total 6.2 6.4 - 8.4 01/09 [facility] Protein [facility] CHEM PANEL Albumin Lvl 2.7 3.5 - 5.0 01/09 s [facility] CHEM PANEL ALT 24 0 - 65 01/09 [facility] CHEM PANEL AST 40 0 - 37 01/09 [facility] CHEM PANEL Alk Phos 102 39 - 136 01/09 [facility] CHEM PANEL Bili Total 1.8 0.2 - 1.3 01/[address] [place] [address] CHEM PANEL Bili Direct 0.4 0.0 - 0.3 01/09 [facility] s [facility] CHEM PANEL Globulin 3.5 2.7 - 4.2 01/[address] CHEM PANEL A/G Ratio 0.8 0.7 - 1.6 01/[address] CHEM PANEL Bili 1.4 0.0 - 1.0 01/09 [facility] Indirect [facility] HEMATOLOGY Basophils # 0.1 0.0 - 0.2 01/09 [facility] s [facility] HEMATOLOGY Pos CO Value 0.400 01/09 [facility]2016 [facility] HEMATOLOGY Heparin Negative 1 Negative 01/09 Result [facility] Ab(AXEL) (01/08/17 8:08 PM) Comment: [facility] Medical assay detects Center heparin antibodies of IgG isotype. Antibodies of other isotypes have been reported to cause heparin-induc ed thrombocytope izabela. Therefore, if there is a strong clinical suspicion of HIT, additional study with a serotonin release assay is recommented. HEMATOLOGY Pat Od Value 0.082 01/09 [facility] CHEM PANEL Vitamin D, 28.6 30.0 - 01/07 [facility] 25-OH, Total 100.0 [facility] PARATHYROI PTH Intact 33.4 11.1 - 01/07 [facility] D PROFILE 79.5 [facility] CHEM PANEL B/C Ratio 17 6 - 25 01/[address] CHEM PANEL A/G Ratio 0.8 0.7 - 1.6 01/[address] CHEM PANEL Globulin 3.5 2.7 - 4.2 01/[address] CHEM PANEL ALT 32 0 - 65 01/[address] CHEM PANEL Alk Phos 126 39 - 136 01/[address] CHEM PANEL AST 58 0 - 37 01/[address] CHEM PANEL Total 6.3 6.4 - 8.4 01/05 [facility] Protein 2016 [facility] CHEM PANEL Albumin Lvl 2.8 3.5 - 5.0 01/05 [facility] s [facility] CHEM PANEL Bili Total 1.6 0.2 - 1.3 01/[address] HEMATOLOGY Basophils # 0.1 0.0 - 0.2 01/05 a s [facility] SPECIAL Hgb A1C 8.7 <=5.6 % 01/05 [facility] CHEMISTRY /2016 [facility] Center HEMATOLOGY PTT 30.9 22.9 - 01/04 [place] 35.8 [facility] CHEM PANEL Bili Direct 0.4 0.0 - 0.3 01/04 a s [facility] Center CHEM PANEL Bili Total 1.6 0.2 - 1.3 01/04 [facility] CHEM PANEL A/G Ratio 0.8 0.7 - 1.6 01/04 [facility] CHEM PANEL Globulin 4.0 2.7 - 4.2 01/04 [facility] CHEM PANEL Bili 1.2 0.0 - 1.0 01/04 Indirect [facility] CHEM PANEL Total 7.4 6.4 - 8.4 01/04 Protein [facility] CHEM PANEL Alk Phos 135 39 - 136 01/04 [facility] CHEM PANEL Albumin Lvl 3.4 3.5 - 5.0 01/04 a s [facility] CHEM PANEL ALT 39 0 - 65 01/04 [facility] CHEM PANEL AST 58 0 - 37 01/04 [facility] BLOOD BANK Antibody Negative 01/04 [facility] RESULTS Scrn (01/04/17 5:12 AM) [facility] BLOOD BANK ABO/Rh O POS 01/04 [facility] RESULTS [facility] HEMATOLOGY K-time Rapid 1.0 0.6 - 2.3 01/04 [facility] HEMATOLOGY ACT (TEG) 97 86 - 118 01/04 [facility] HEMATOLOGY R-time Rapid 0.5 0.4 - 0.7 01/04 [facility] HEMATOLOGY [place] 0.3 01/04 [facility] HEMATOLOGY Angle Rapid 78 64 - 80 01/04 [facility] HEMATOLOGY Max 62 52 - 71 01/04 [facility] Amplitude [facility] Center HEMATOLOGY Estimated % 0.0 0.0 - 7.5 01/04 [place] [facility] HEMATOLOGY G-value 8.2 5.0 - 11.6 01/04 [facility] BEDSIDE Glucose POC 221 70 - 99 02/10 [place] <sup>1</sup>I GLUCOSE nterpretive [facility] TESTING Data: Upper Reportable Limit: 200 mg/dL. CHEMISTRY AGAP 12.3 10.0 - 02/10 Normal MH 20.0 [facility] CHEMISTRY eGFR 93 02/10 <sup>5</sup>R MH esult [facility] Comment: The eGFR is calculated using [...] 0.6 0.5 - 1.4 02/10 Normal l [facility] CHEMISTRY BUN 2 - 02/10 LOW MH [facility] CHEMISTRY Glucose Lvl 179 70 - 99 02/10 [place] <sup>7</sup>I nterpretive [facility] Data: Adult reference range values reflect the clinical guidelines
of the [place] [employer]. CHEMISTRY Calcium Lvl 8.1 8.5 - 10.5 02/10 LOW MH [facility] CHEMISTRY CO2 29 24 - 32 02/10 Normal [facility] CHEMISTRY Sodium Lvl 149 135 - 145 02/10 [place] MH [facility] CHEMISTRY Chloride Lvl 111 95 - 109 02/10 HI MH [facility] CHEMISTRY Potassium 3.3 3.5 - 5.1 02/10 LOW Lvl [facility] HEMATOLOGY WBC X 10x3 7.3 3.7 - 10.4 02/10 Normal [facility] HEMATOLOGY RBC X 10x6 3.91 4.20 - 10 LOW MH 5.40 /2012 [facility] HEMATOLOGY Hgb 10.4 12.0 - 10/22 LOW MH 16.0 /2012 [facility] HEMATOLOGY Hct 32.9 36.0 - 02/10 LOW MH 48.0 /2012 [facility] HEMATOLOGY MPV 8.5 7.4 - 10.4 02/10 Normal MH /2012 [facility] HEMATOLOGY MCHC 31.6 32.0 - 02/10 LOW MH 36.0 /2012 [facility] HEMATOLOGY RDW 19.2 11.5 - 02/10 [place] MH 14.5 /2012 [facility] HEMATOLOGY MCV 84.1 81.0 - 02/10 Normal MH 99.0 /2012 [facility] HEMATOLOGY MCH 26.6 27.0 - 10 LOW MH 31.0 /2012 [facility] HEMATOLOGY Platelet 152 133 - 450 02/10 Normal MH /2012 [facility] HEMATOLOGY Basophils # 0.0 0.0 - 0.2 02/10 Normal MH /2012 [facility] HEMATOLOGY Eosinophils 0.2 0.0 - 0.5 02/10 Normal MH # /2012 [facility] HEMATOLOGY Basophils 0.3 0.0 - 1.0 02/10 Normal MH /2012 [facility] HEMATOLOGY Eosinophils 3.1 0.0 - 4.0 02/10 Normal MH /2012 [facility] HEMATOLOGY Monocytes 10.0 2.0 - 12.0 02/10 Normal MH /2012 [facility] HEMATOLOGY Lymphocytes 41.5 20.0 - 02/10 HI MH 40.0 /2012 [facility] HEMATOLOGY Segs-Bands # 3.3 1.5 - 8.1 02/10 Normal MH [facility] HEMATOLOGY Monocytes # 0.7 0.0 - 0.8 02/10 Normal MH /2012 [facility] HEMATOLOGY Lymphocytes 3.0 1.0 - 5.5 02/10 Normal MH # /2012 [facility] HEMATOLOGY Segs 45.1 45.0 - 02/10 Normal MH 75.0 /2012 [facility] BEDSIDE Glucose POC 228 70 - 99 02/10 [place] <sup>2</sup>I GLUCOSE /2012 nterpretive [facility] TESTING Data: Upper Reportable Limit: 200 mg/dL. BEDSIDE Glucose POC 326 70 - 99 02/09 [place] <sup>3</sup>I GLUCOSE /2012 nterpretive [facility] TESTING Data: Upper Reportable Limit: 200 mg/dL. BEDSIDE Gluc POC Notify 02/09 GLUCOSE Comment 1 RN/ /2012 [facility] TESTING BEDSIDE Gluc POC Notify 02/09 GLUCOSE Comment 1 RN/ /2012 [facility] TESTING HEMATOLOGY Hgb 11.0 12.0 - 02/09 LOW MH 16.0 /2012 [facility] HEMATOLOGY Hct 34.6 36.0 - 02/09 LOW MH 48.0 /2012 [facility] BEDSIDE Gluc POC Notify 02/09 GLUCOSE Comment 1 RN/MD /2012 [facility] TESTING HEMATOLOGY Hgb 10.2 12.0 - 02/09 LOW MH 16.0 /2012 [facility] HEMATOLOGY Hct 32.1 36.0 - 02/09 LOW MH 48.0 /2012 [facility] HEMATOLOGY Platelet 131 133 - 450 10 LOW MH /2012 [facility] HEMATOLOGY RDW 18.8 11.5 - 10 HI MH 14. [facility] HEMATOLOGY MPV 8.8 7.4 - 10.4 10 Normal MH /2012 [facility] HEMATOLOGY MCV 83.0 81.0 - 10 Normal MH 99.0 /2012 [facility] HEMATOLOGY MCH 26.4 27.0 - 02/08 LOW MH 31.0 [facility] HEMATOLOGY MCHC 31.8 32.0 - 02/08 LOW MH 36.0 /2012 [facility] HEMATOLOGY RBC X 10x6 3.97 4.20 - 02/08 LOW MH 5.40 [facility] HEMATOLOGY WBC X 10x3 6.2 3.7 - 10.4 10 Normal MH /2012 [facility] HEMATOLOGY Platelet 133 133 - 450 10 Normal MH /2012 [facility] HEMATOLOGY MPV 8.7 7.4 - 10.4 10 Normal MH /2012 [facility] HEMATOLOGY RBC X 10x6 4.20 4.20 - 02/07 Normal MH 5.40 [facility] HEMATOLOGY WBC X 10x3 6.5 3.7 - 10.4 02/07 Normal MH /2012 [facility] HEMATOLOGY MCV 84.7 81.0 - 10 Normal MH 99.0 /2012 [facility] HEMATOLOGY MCH 26.7 27.0 - 10 LOW MH 31.0 [facility] HEMATOLOGY RDW 19.1 11.5 - 02/07 HI MH 14. [facility] HEMATOLOGY MCHC 31.5 32.0 - 02/07 LOW MH 36.0 [facility] BLOOD BANK RBC product Product available 4 02/05 Normal <sup> 4</sup>R RESULTS (02/05/2013 08:40:00) esult [facility] Comment: 02/05/2013 08:57 [id number]
Spoke to Gertrudis 02/05/2013 08:57 ttn BLOOD BANK ABO/Rh O POS 02/05 MH RESULTS /2012 [facility] BLOOD BANK Antibody Negative 02/05 Normal RESULTS Scrn (02/04/2013 19:40:00) /2012 [facility] CHEMISTRY Phosphorus 2.7 2.5 - 4.5 02/05 Normal [facility] CHEMISTRY Magnesium 1.5 1.8 - 2.4 02/05 LOW Lvl /2012 [facility] CHEMISTRY eGFR 93 02/05 <sup>6</sup>R esult [...] Total 0.6 0.2 - 1.3 02/05 Normal [facility] CHEMISTRY ASPARTATE 49 0 - 37 02/05 [facility] TRANSAMINASE [facility] CHEMISTRY Alk Phos 141 39 - 136 02/05 HI MH [facility] CHEMISTRY Albumin Lvl 3.1 3.5 - 5.0 02/05 LOW [facility] CHEMISTRY ALANINE 30 0 - 65 02/05 Normal AMINOTRANSFE [facility] RASE CHEMISTRY Calcium Lvl 8.0 8.5 - 10.5 02/05 LOW [facility] CHEMISTRY Total 7.2 6.4 - 8.4 02/05 Normal Protein [facility] CHEMISTRY CO2 27 24 - 32 02/05 Normal [facility] CHEMISTRY Glucose Lvl 160 70 - 99 02/05 [place] <sup>8</sup>I nterpretive [facility] Data: Adult reference range values reflect the clinical guidelines
of the [place] [employer]. CHEMISTRY BUN 5 7 - [...] - 02/05 Normal <sup>10</sup> 35.8 /2013 Interpretive [facility] Data: Heparin Therapeutic Range: 57 - 92 Seconds HEMATOLOGY PROTIME 15.0 12.0 - 02/05 [place] 14.7 /2012 [facility] HEMATOLOGY INR 1.19 0.85 - 02/05 [place] <sup>9</sup>I 1.17 nterpretive [facility] Data: RECOMMENDED RANGES FOR PROTIME INR:
2.0-3.0 for most medical and surgical thromboemboli c states.
2.5-3.5 for artificial heart valves and recurrent embolism.<br/ >
INR SHOULD BE USED ONLY FOR PATIENTS ON STABLE ANTICOAGULANT THERAPY. URINALYSIS UA <=1.0 0.1 - 1.0 02/05 Urobilinogen mg/dL [facility] URINALYSIS UA Color Ltyellow 02/05 [facility] URINALYSIS UA Bili Negative Negative 02/05 *NA* [facility] (02/04/2013 19:30:00) URINALYSIS UA Ketones Negative Negative 02/05 mg/dL [facility] URINALYSIS UA Blood Moderate Negative 02/05 ABN MH *ABN* [facility] (02/04/2013 19:30:00) URINALYSIS UA Leuk Est Negative Negative 02/05 Normal (02/04/2013 19:30:00) [facility] URINALYSIS UA Glucose 50 mg/dL Negative 02/05 [facility] URINALYSIS UA Sq Epi Occasional Few 02/05 MH /LPF [facility] URINALYSIS UA Nitrite Negative Negative 02/05 Normal (02/04/2013 19:30:00) [facility] URINALYSIS UA Turbidity Slight Clear 02/05 ABN *ABN* [facility] (02/04/2013 19:30:00) URINALYSIS UA pH 6.0 5.0 - 8.0 02/05 Normal [facility] URINALYSIS UA Spec Grav 1.003 <=1.030 02/05 Normal [facility] URINALYSIS UA Protein Negative Negative 02/05 Normal mg/dL [facility] URINALYSIS UA Mucus Few /LPF None Seen 02/05 [facility] URINALYSIS UA Bacteria Moderate None Seen 02/05 ABN /HPF [facility] URINALYSIS UA CaOx Sofie Occasional None Seen 02/05 /HPF [facility] URINALYSIS UA WBC 1 0 - 5 02/05 Normal [facility] URINALYSIS UA RBC 2 0 - 2 02/05 Normal [facility] BEDSIDE Gluc POC Notify 01/27 GLUCOSE Comment 2 RN/ /2012 [facility] TESTING BEDSIDE Glucose POC 291 70 - 99 01/27 HI <sup>1</sup>I GLUCOSE /2012 nterpretive [facility] TESTING Data: Upper Reportable Limit: 200 mg/dL. BEDSIDE Gluc POC Assess 01/27 GLUCOSE Comment 1 patient /2012 [facility] TESTING BEDSIDE Gluc POC Notify 01/27 GLUCOSE Comment 2 RN/MD /2012 [facility] TESTING BEDSIDE Gluc POC Assess 01/27 GLUCOSE Comment 1 patient /2012 [facility] TESTING BEDSIDE Glucose POC 236 70 - 99 10 HI <sup>2</sup>I MH GLUCOSE /2012 nterpretive [facility] TESTING Data: Upper Reportable Limit: 200 mg/dL. HEMATOLOGY RDW 20.0 11.5 - 10 HI MH 14.5 /2012 [facility] HEMATOLOGY MPV 8.5 7.4 - 10.4 10/ Normal MH /2012 [facility] HEMATOLOGY Platelet 148 133 - 450 10 Normal MH /2012 [facility] HEMATOLOGY WBC X 10x3 5.7 3.7 - 10.4 10 Normal MH /2012 [facility] HEMATOLOGY Hct 30.5 36.0 - 10 LOW MH 48.0 /2012 [facility] HEMATOLOGY Hgb 9.6 12.0 - 10 LOW MH 16.0 /2012 [facility] HEMATOLOGY RBC X 10x6 3.60 4.20 - 10 LOW MH 5.40 /2012 [facility] HEMATOLOGY MCH 26.6 27.0 - 1008 LOW MH 31.0 /2012 [facility] HEMATOLOGY MCV 84.5 81.0 - 1008 Normal MH 99.0 /2012 [facility] HEMATOLOGY MCHC 31.5 32.0 - 1008 LOW MH 36.0 /2012 [facility] HEMATOLOGY Segs 53.6 45.0 - 10/08 Normal MH 75.0 /2012 [facility] HEMATOLOGY Lymphocytes 32.8 20.0 - 1008 Normal MH 40.0 /2012 [facility] HEMATOLOGY Monocytes 11.3 2.0 - 12.0 10/ Normal MH /2012 [facility] HEMATOLOGY Eosinophils 1.9 0.0 - 4.0 10/ Normal MH /2012 [facility] HEMATOLOGY Basophils 0.4 0.0 - 1.0 10/08 Normal MH /2012 [facility] HEMATOLOGY Segs-Bands # 3.0 1.5 - 8.1 10/ Normal MH /2012 [facility] HEMATOLOGY Lymphocytes 1.9 1.0 - 5.5 10/08 Normal MH # /2012 [facility] HEMATOLOGY Monocytes # 0.6 0.0 - 0.8 01/27 Normal MH /2012 [facility] HEMATOLOGY Eosinophils 0.1 0.0 - 0.5 / Normal MH # /2012 [facility] HEMATOLOGY Basophils # 0.0 0.0 - 0.2 10/08 Normal MH /2012 [facility] BEDSIDE Gluc POC Assess 01/27 GLUCOSE Comment 1 patient /2012 [facility] TESTING BEDSIDE Glucose POC 233 70 - 99 01/27 HI <sup>3</sup>I GLUCOSE /2012 nterpretive [facility] TESTING Data: Upper Reportable Limit: 200 mg/dL. BEDSIDE Gluc POC Notify 01/27 GLUCOSE Comment 2 RN/ /2012 [facility] TESTING HEMATOLOGY Monocytes # 0.7 0.0 - 0.8 01/26 Normal MH /2012 [facility] HEMATOLOGY Lymphocytes 1.8 1.0 - 5.5 10 Normal MH # /2012 [facility] HEMATOLOGY Eosinophils 2.3 0.0 - 4.0 01/26 Normal /2012 [facility] HEMATOLOGY Basophils 0.2 0.0 - 1.0 01/26 Normal /2012 [facility] HEMATOLOGY Segs-Bands # 2.2 1.5 - 8.1 01/26 Normal /2012 [facility] HEMATOLOGY Segs 46.1 45.0 - 01/26 Normal MH 75.0 [facility] HEMATOLOGY Lymphocytes 37.9 20.0 - 01/26 Normal MH 40.0 [facility] HEMATOLOGY Monocytes 13.5 2.0 - 12.0 01/26 HI MH /2012 [facility] HEMATOLOGY Basophils # 0.0 0.0 - 0.2 01/26 Normal /2012 [facility] HEMATOLOGY Eosinophils 0.1 0.0 - 0.5 01/26 Normal MH # /2012 [facility] HEMATOLOGY PROTIME 16.5 12.0 - 01/26 HI 14.7 /2012 [facility] HEMATOLOGY INR 1.35 0.85 - 01/26 HI <sup>10</sup> MH 1.17 /2012 Interpretive [facility] Data: RECOMMENDED RANGES FOR PROTIME INR:
2.0-3.0 for most medical and surgical thromboemboli c states.
2.5-3.5 for artificial heart valves and recurrent embolism.<br/ >
INR SHOULD BE USED ONLY FOR PATIENTS ON STABLE ANTICOAGULANT THERAPY. HEMATOLOGY Hct 28.5 36.0 - 01/26 LOW MH 48.0 /2012 [facility] HEMATOLOGY MCV 85.8 81.0 - 10 Normal 99.0 /2012 [facility] HEMATOLOGY MCH 27.2 27.0 - 01/26 Normal MH 31.0 /2012 [facility] HEMATOLOGY MCHC 31.7 32.0 - 10 LOW MH 36.0 /2012 [facility] HEMATOLOGY Hgb 9.0 12.0 - 10 LOW 16.0 /2012 [facility] HEMATOLOGY Platelet 133 133 - 450 10/07 Normal MH /2012 [facility] HEMATOLOGY MPV 8.9 7.4 - 10.4 10/ Normal MH /2012 [facility] HEMATOLOGY RDW 20.0 11.5 - 10/07 HI MH 14.5 /2012 [facility] HEMATOLOGY WBC X 10x3 4.9 3.7 - 10.4 10/07 Normal MH /2012 [facility] HEMATOLOGY RBC X 10x6 3.32 4.20 - 10/07 LOW MH 5.40 /2012 [facility] TUMOR AFP 3.0 0.0 - 11.0 10/07 Normal MH MARKERS /2012 [facility] HEMATOLOGY WBC X 10x3 5.9 3.7 - 10.4 10/ Normal MH /2012 [facility] HEMATOLOGY MCV 85.3 81.0 - 10/07 Normal MH 99.0 /2012 [facility] HEMATOLOGY Platelet 153 133 - 450 10/ Normal MH /2012 [facility] HEMATOLOGY RDW 19.6 11.5 - 10/07 HI MH 14. /2012 [facility] HEMATOLOGY Hgb 9.5 12.0 - 1007 LOW MH 16.0 /2012 [facility] HEMATOLOGY RBC X 10x6 3.55 4.20 - 10/07 LOW MH 5.40 /2012 [facility] HEMATOLOGY Hct 30.3 36.0 - 10/07 LOW MH 48.0 /2012 [facility] HEMATOLOGY MPV 8.9 7.4 - 10.4 10 Normal MH /2012 [facility] HEMATOLOGY MCHC 31.4 32.0 - 10/07 LOW MH 36.0 /2012 [facility] HEMATOLOGY MCH 26.8 27.0 - 10/07 LOW MH 31.0 /2012 [facility] HEMATOLOGY Basophils # 0.0 0.0 - 0.2 10/ Normal MH /2012 [facility] HEMATOLOGY Monocytes # 0.7 0.0 - 0.8 10/07 Normal MH /2012 [facility] HEMATOLOGY Eosinophils 0.1 0.0 - 0.5 10/07 Normal MH # /2012 [facility] HEMATOLOGY Monocytes 11.7 2.0 - 12.0 10/07 Normal MH /2012 [facility] HEMATOLOGY Eosinophils 2.4 0.0 - 4.0 10/07 Normal MH /2012 [facility] HEMATOLOGY Basophils 0.6 0.0 - 1.0 10/07 Normal MH /2012 [facility] HEMATOLOGY Segs-Bands # 2.6 1.5 - 8.1 10/ Normal MH /2012 [facility] HEMATOLOGY Lymphocytes 2.4 1.0 - 5.5 10/07 Normal MH # /2012 [facility] HEMATOLOGY Lymphocytes 41.2 20.0 - 01/26 HI MH 40.0 [facility] HEMATOLOGY Segs 44.1 45.0 - 01/26 LOW MH 75.0 [facility] IMMUNOLOGY Hep B Core Negative Negative 01/25 MH Ab *NA* /2012 [facility] (01/25/2013 09:31:00) IMMUNOLOGY Hep C Ab Negative Negative 01/25 MH *NA* [facility] (01/25/2013 09:31:00) IMMUNOLOGY Hep Bs Ag Negative Negative 01/25 MH *NA* [facility] (01/25/2013 09:31:00) IMMUNOLOGY Hep A Tot Positive Negative 01/25 MH *NA* /2012 [facility] (01/25/2013 09:31:00) IMMUNOLOGY Hep Bs Ab 79.7 <=7.4 01/25 HI <sup>13</sup> MH Interpretive [facility] Data: <=7.4 mIU/mL------- -Negative for Anti-HBs. [...] /2012 [facility] Comment: 01/25/2013 09:23 [id number]
Called to _CRYSTAL at _01/25/2013 09:20 by [facility]_. CHEMISTRY Magnesium 1.7 1.8 - 2.4 01/25 LOW Lvl [facility] CHEMISTRY Phosphorus 1.9 2.5 - 4.5 01/25 LOW MH [facility] CHEMISTRY Troponin-I 0.04 0.00 - 01/25 Normal MH 0.40 /2012 [facility] CHEMISTRY Total CK 116 12 - 191 01/25 Normal [facility] CHEMISTRY CK MB 0.6 0.5 - 3.6 01/25 Normal MH [facility] CHEMISTRY CK-MB INDEX 0.5 0.0 - 2.5 01/25 Normal [facility] CHEMISTRY Troponin-I 0.04 0.00 - 10 Normal 0.40 /2012 [facility] CHEMISTRY Total CK 105 12 - 191 01/25 Normal [facility] CHEMISTRY CK MB 0.7 0.5 - 3.6 01/25 Normal [facility] CHEMISTRY CK-MB INDEX 0.7 0.0 - 2.5 01/25 Normal [facility] CHEMISTRY Chloride Lvl 107 95 - 109 01/24 Normal [facility] CHEMISTRY Potassium 3.6 3.5 - 5.1 01/24 Normal MH Lvl [facility] CHEMISTRY Sodium Lvl 143 135 - 145 01/24 Normal [facility] CHEMISTRY eGFR 93 01/24 <sup>6</sup>R esult [...] BUN 7 7 - 22 01/24 Normal [facility] CHEMISTRY Creatinine 0.6 0.5 - 1.4 01/24 Normal Lvl [facility] CHEMISTRY CO2 27 24 - 32 01/24 Normal [facility] CHEMISTRY Calcium Lvl 7.6 8.5 - 10.5 01/24 LOW [facility] CHEMISTRY Glucose Lvl 175 70 - 99 01/24 HI <sup>8</sup>I nterpretive [facility] Data: Adult reference range values reflect the clinical guidelines
of the [place] [employer]. CHEMISTRY AGAP 12.6 10.0 - 01/24 Normal MH 20. [facility] CHEMISTRY Phosphorus 2.6 2.5 - 4.5 01/24 Normal MH [facility] CHEMISTRY Magnesium 1.6 1.8 - 2.4 10 LOW MH Lvl [facility] BLOOD BANK ABO/Rh O POS 01/24 RESULTS [facility] BLOOD BANK RBC product Product available 5 01/24 Normal <sup> 5</sup>R RESULTS (01/23/2013 23:33:26) /2012 [facility] Meri roberts Comment: 01/23/2013 23:39 [id number]
Called to Pancho PAULSON at 01/23/2013 23:39_ by _PB. CHEMISTRY B/C Ratio 17 6 - 25 01/24 Normal MH [facility] CHEMISTRY AGAP 13.8 10.0 - 01/24 Normal 20. [facility] CHEMISTRY Globulin 3.2 2.0 - 4.0 01/24 Normal [facility] CHEMISTRY A/G Ratio 0.9 0.7 - 1.6 01/24 Normal [facility] CHEMISTRY Potassium 3.8 3.5 - 5.1 01/24 Normal Lvl [facility] CHEMISTRY Chloride Lvl 106 95 - 109 01/24 Normal [facility] CHEMISTRY Sodium Lvl 142 135 - 145 01/24 Normal [facility] CHEMISTRY eGFR 88 01/24 <sup>7</sup>R ult [facility] Comment: The eGFR is calculated using [...] CHEMISTRY ASPARTATE 46 0 - 37 01/24 [facility] TRANSAMINASE [facility] CHEMISTRY Alk Phos 168 39 - 136 01/24 HI MH [facility] CHEMISTRY Bili Total 0.6 0.2 - 1.3 01/24 Normal MH [facility] CHEMISTRY Albumin Lvl 2.9 3.5 - 5.0 01/24 LOW MH [facility] CHEMISTRY ALANINE 32 0 - 65 01/24 Normal AMINOTRANSFE /2012 [facility] RASE CHEMISTRY Calcium Lvl 7.8 8.5 - 10.5 01/24 LOW [facility] CHEMISTRY Total 6.1 6.4 - 8.4 01/24 LOW Protein [facility] CHEMISTRY CO2 26 24 - 32 01/24 Normal [facility] CHEMISTRY Creatinine 0.7 0.5 - 1.4 01/24 Normal Lvl [facility] CHEMISTRY Glucose Lvl 233 70 - 99 01/24 AL <sup>9</sup>I nterpretive [facility] Data: Adult reference range values reflect the clinical guidelines
of the [place] [employer]. CHEMISTRY BUN 12 7 - 22 01/24 Normal [facility] HEMATOLOGY PROTIME 16.7 12.0 - 01/24 [facility] 14.7 /2012 [facility] HEMATOLOGY INR 1.37 0.85 - 01/24 AL <sup>11</sup> 1.17 /2012 Interpretive [facility] Data: RECOMMENDED RANGES FOR PROTIME INR:
2.0-3.0 for most medical and surgical thromboemboli c states.
2.5-3.5 for artificial heart valves and recurrent embolism.<br/ >
INR SHOULD BE USED ONLY FOR PATIENTS ON STABLE ANTICOAGULANT THERAPY. HEMATOLOGY aPTT 29.7 22.9 - 01/24 Normal <sup>12</sup> 35.8 /2012 Interpretive [facility] Data: Heparin Therapeutic Range: 57 - 92 Seconds BLOOD BANK ABO/Rh O POS 01/24 RESULTS /2012 [facility] BLOOD BANK Antibody Negative 01/24 [facility] RESULTS Scrn (01/23/2013 22:13:00) /2012 [facility] STOOL Occult Bld Positive Negative 01/24 [facility] TESTS Stl *ABN* /2012 [facility] (01/23/2013 [...] 1940; Age: 76 years y/o Female MR: [id number] * LEFT HIP (2 views) with frontal [...] appears be in goo d position. SL: [id number] Pelvis AP DX EXAM: XR PELVIS 1 VIEW 01/05/2017 [facility] DATE: 01/05/2017 7:15 AM CDT [place] [facility] INDICATION: POST-OP LUIS - POST-OP LEFT LUIS COMPARISON: Same day TECHNIQUE: A single AP supine radiograph of the pelvis FINDINGS: Left bipolar hemiarthroplasties seen i n satisfactory alignment. The soft tissues are unremarkable. IMPRESSION: Postoperative i maging demonstrates satisfactory appearance of left bipolar hemiarthroplasty. Pelvis AP DX EXAM: Pelvis AP DX, Pelvis AP DX 01/05/2017 [facility] DATE: 01/05/2017 7:14 AM CDT Cent er [...] Pelvis AP DX, Pelvis AP DX 01/05/2017 [facility] DATE: 01/05/2017 7:14 AM CDT Cent er [...] EXAM: XR LEFT ANKLE 3 VIEWS 01/04/2017 [facility] EXAM: XR LEFT FOOT 3 VIEWS [...] EXAM: XR LEFT ANKLE 3 VIEWS 01/04/2017 [facility] EXAM: XR LEFT FOOT [...] LEFT HIP 2 VIEW AND AP PELVIS [facility] EXAM: XR LEFT FEMUR 2 VIEWS [...] 2 VIEW AND AP PELVIS 01/05/20 17 [facility] EXAM: XR LEFT FEMUR 2 VIEWS Cent [...] ER Abdomen RLQ US HISTORY: Ascites. 02/09/2013 [facility] ultrasound abdomen w as performed to evaluate for possible paracentesis. Only scant ascites fluid is noted. As such, paracentesis was not performed at this time. SL:13 Bowel acute blood TAGGED RED BLOOD CELL SCAN NM 02/06/2013 [facility] loss imaging NM INDICATION: GI BLEED TECHNIQUE: [...] ULTRASOUND WITH ASSOCIATED DOPPLER ST UDY: 01/25/2013 [facility] with Abdominal Doppler DISCUSSION: Best images poss [...] Date Comments Source Respitory Rate 18 01/11/2017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
--- OUTSIDE RECORDS SUMMARY | 2020-03-08 12:51 | XMS REPORT | Continuity of Care Document ---
:1940 Author Organization [facility] t Address [address] [place] [address] Care Team Providers Name Role Phone LE Primary Care Physician Unavailable SYSTEM, NOT IN Attending Clinician Unavailable Lubna BOLAÑOS Attending Clinician Ashley Mera RN Attending Clinician Unavailable LUBNA Attending Clinician Unavailable Parth Steven Attending [...] Date Expiration Date S nery AETNA MEDICARE [id number] 2013 PPO 00:00:00 AETNA - MEDICARE [id number] [address] [facility] MGD CAREAETNA 00:00:00 - Medical MEDICARE O POS Center [id number] [id number] PASJB Gibbons [id number] Problems Condition Condition Condition Status Onset Resolution [...] Alejandro FEMORAL 00 NECK FX Active 01/04/2017 [facility] Awaiting Awaiting Disease [facility] transplant transplant 00:00: Me dical 00 Center Angina at Angina at Disease Active [facility] rest rest 06-19 [facility] 00:[facility]: Medical 00 [place] Pre-transp Pre-transp Disease Active Last C HI [...] d 01-11 [facility] - 00:[facility]: Medical 00 [place] Esophageal Esophageal Disease Active [facility] varices varices 01-11 [facility] 00:[facility]: Medical 00 Center Hepatic Hepatic Disease Active Last [facility] encephalop encephalop 01-11 Assessmen Cristinekes - athy athy 00:00: t & Plan: Medical 00 Continue Center lactulose as prescribe d. 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 01-11 [facility] - thrombosis thrombosis 00:00: Me dical 00 [place] Anemia due Anemia due Disease Active C [...] oria BLEEDING 0-16 12:27:00 l GI 09:00: Alejandro BLEEDING 00 Active 02/04/2013 [facility] GI BLEED Diagnosis Active 2012-042013-01-27 M emoria 0-04 17:20:00 l GI BLEED 12:00: Elie n 00 Active 01/23/2013 [facility] Cirrhosis Cirrhosis Disease Active [facility]04 [facility] - 00:[facility]: Medical 00 [place] Fatty Fatty Disease Active Overview: [facility] liver liver 6-04 ICD9 DX [facility] - disease, disease, 00:00: Sole Tier Medi stephenie nonalcohol nonalcohol 00 Ce nter ic ic Portal Portal Disease Active [facility] hypertensi hypertensi 6-04 Cristine kes - on on 00:00: Medical 00 [place] Diabetes Diabetes Disease Active Last [facility] mellitus mellitus 6-04 Assessmen Summer es - 00:00: t & Plan: Medical 00 Continue Center tight blood glucose control. Rectal Rectal Disease Active [facility] bleeding bleeding 6-04 [facility] 00:[facility]: Medical 00 Center Hematochez Problem Active 2017-02-01 M emoria ia 4-06 05:42:45 l (finding) 00:00: [place] Hematochez 00 ia (finding) Active 07/26/2012 Problem 02/01/2017 Data migrated from [employer] on 09/18/14. [facility], OPID Friends[facility] d Internal Problem Active 2017-02-01 Mem oria hemorrhoid 4-06 05:42:45 l s without Internal 00:00: Her dill complicati hemorrhoid 00 on s without (disorder) complicati on (disorder) Active 07/26/2012 Problem 02/01/2017 Data migrated from [employer] on 09/18/14. [facility] OPID [place] Residual Problem Active 2017-02-01 Mem oria hemorrhoid 4-06 05:42:45 l al skin Residual 00:00: Rut nn tags hemorrhoid 00 (disorder) al skin tags (disorder) Active 07/26/2012 Problem 02/01/2017 Data migrated from [employer] on 09/18/14. [facility] LISSAD Friendsmarcy d Cirrhosis Problem Active 2017-02-01 Me moria of liver 4-04 05:42:45 l (disorder) 00:00: Elie n Cirrhosis 00 of liver (disorder) Active 07/24/2012 Problem 02/01/2017 Data migrated from [employer] on 09/18/14. [facility] LORENZO Friendsalenaoo d Esophageal Problem Active 2017-02-01 M emoria varices 4-04 05:42:45 l (disorder) 00:00: Elie n Esophageal 00 varices (disorder) Active 07/24/2012 Problem 02/01/2017 Data migrated from [employer] on 09/18/14. [facility] LORENZO Bearden d Portal Problem Active 2017-02-01 Memor ia hypertensi 4-04 05:42:45 l on Portal 00:00: Alejandro (disorder) hypertensi 00 on (disorder) Active 07/24/2012 Problem 02/01/2017 Data migrated from [employer] on 09/18/14. [facility] OPID Monisha d Closed Closed Problem Active [...] nondisplac it y of ed ed [place] fracture fracture Physic i of fourth of [...] l Anemia Alejandro (disorder) Resolved Problem 02/01/2017 [facility], OPID [place] [facility] Cirrhosis Problem Resolve 2017-02-01 M emoria - d 05:42:45 l non-alcoho Elie n lic Cirrhosis (disorder) - non-alcoho lic (disorder) Resolved Problem 02/01/2017 [facility] OPINarayan Friends[place]o narayan,[facility] DM II Problem Resolve 2017-02-01 Malick aurora [Diabetes d 05:42:45 l mellitus DM II [place] type [Diabetes II](Confir mellitus med) type II](Confir med) Resolved Problem 02/01/2017 [facility] OPID [place] Hemorrhoid Problem Resolve 2017-02-01 Memoria s d 05:42:45 l (disorder) Elie n Hemorrhoid s (disorder) Resolved Problem 02/01/2017 [facility] OPID [place],[facility] Essential Problem Resolve 2017-02-01 M emoria hypertensi d 05:42:45 l on Alejandro (disorder) Essential hypertensi on (disorder) Resolved Problem 02/01/2017 [facility] OPID [place] [place] Malignant Problem Resolve 2017-02-01 M emoria neoplasm d 05:42:45 l of liver Alejandro (disorder) Malignant neoplasm of liver (disorder) Resolved Problem 02/01/2017 [facility] OPID [place] Diverticul Problem Resolve 2013-02-17 Memoria um d 01:01:34 l (morpholog Elie n ic Diverticul abnormalit um y) (morpholog ic abnormalit y) Resolved Problem 02/17/2013 [facility] DM II Problem Resolve 2013-02-17 Malick aurora [Diabetes d 01:01:34 l mellitus DM II Alejandro type II] [Diabetes mellitus type II] Resolved Problem 02/17/2013 [facility] HTN Problem Resolve 2013-02-17 Malick aurora d 01:01:34 l HTN Alejandro Resolved Problem 02/17/2013 [facility] Cirrhosis Problem Resolve 2013-01-31 M emoria - d 01:54:30 l non-alcoho Elie n lic Cirrhosis - non-alcoho lic Resolved Problem 01/31/2013 [facility] Diverticul Problem Resolve 2013-01-31 Memoria osis d 01:54:30 l Alejandro Diverticul osis Resolved Problem 01/31/2013 [facility] Metatarsal Problem Active 2017-02-01 M emoria bone 05:42:45 l fracture [place] (disorder) Metatarsal bone fracture (disorder) Active Problem 02/01/2017 [facility], OPID [place] GASTROINTE Diagnosis Active 2013-02-[address] HEMORR 12:27:00 l NOS Alejandro GASTROINTE ST HEMORR NOS Active [facility] FRACTURE Diagnosis Active 2017-01-18 M emoria OF UNSP 21:59:00 l PART OF FRACTURE Rut nn NECK OF OF UNSP LEFT FE PART OF NECK OF LEFT FE Active [facility] Allergies, Adverse Reactions, Alerts Allergy Allergy Status Severity Reaction(s) Onset Inactive Treating Comm ents Source Name Type Date Date Clinician Adhesive Drug Active Rash [facility] Tape Allergy 10-12 [facility] 00:[facility]: Medical 00 Center Family History Family Member Diagnosis Comments Start Date Stop Date Source Natural brother Heart disease [facility] Natural father Heart disease [facility] Natural father Failure to thrive MD Galvez Natural mother Heart failure [facility] Natural mother COPD MD Thompson tena Social History Social Habit Start Date Stop Date Quantity Comments Source Sex Assigned At MD Izaguirre on Exposure to Not sure MD Galvez SARS-CoV-2 (event) Tobacco use and 2020-03-07 2020-03-07 Never used MD Izaguirre on exposure 00:00:00 00:00:00 Alcohol intake 2020-03-07 2020-03-07 Current MD Thompson tena 00:00:00 00:00:00 non-drinker of alcohol (finding) Social History 2017-01-04 2017-01-04 [facility] 22:46:20 22:46:20 Smoking Status Start Date Stop [...] 01-11 0.3 mL, l mL 16:34: SUB-Q, [place] subcutaneou 00 [id number], s solution Stop date is 01/26/17, 0 Refill(s) Ergocalcife Yes 50,000 Malick aurora rol [id number] 01-11 IntlUnit = l UNT Oral 16:34: 1 cap, PO, Her dill Capsule 00 Q7D, 0 Refill(s) Lactulose Yes 20 gm = 30 Me moria 667 MG/ML 01-11 mL, PO, l Oral 16:34: TID, PRN Alejandro Solution 00 Other -See Comment, 0 Refill(s) Monobasic No Notes: Memori a potassium - (Same as: l phosphate 22:00: Phos-NaK) Her dill 155 MG / 00 Each 1.5 Sodium gm pkt has Phosphate, 250mg Monobasic phosphorou 350 MG Oral s. Mix Tablet w/2.5oz water and stir. Lactulose No Notes: Memori a 667 MG/ML - (Same l Oral 21:47: as:Chronul [place] Solution 00 ac) potassium No Notes: Memori a phosphate-s - (Same as: l odium 19:00: Phos-NaK) [place] phosphate 00 Each 1.5 155 mg-350 gm [...] WASTE: F/P l 16:47: - Sink; E Alejandro 00 - Municipal Trash Bin influenza No Notes: Memori a virus 01-09 (Same as: l vaccine, 14:00: Fluzone Elie n inactivated 00 Quadrivale nt, Fluarix Quadrivale nt) For 3 years of age and older (0.5 mL IM) Shake well before use cyclobenzap No Notes: Malick aurora rine 01-09 (Same As: l 02:32: Flexeril) Alejandro Ergocalcife No Notes: Malick aurora rol [id number] 01-08 (Same as: l UNT Oral 21:00: [...] a 01-05 (Same As: l 21:00: Ancef, [place] 00 Kefzol) Cefazolin FOR IV SET ONLY [...] 01-05 Drug form: l 14:07: INJ, ONCE, Alejandro Stop date: 01/05/17 9:07:00 CDT famotidine No Route: IV, M emoria (ANES) 01-05 Drug form: l 14:07: INJ, ONCE, Alejandro 00 Stop date: 01/05/17 9:07:00 CDT ferrous No Notes: Memoria sulfate 325 -16 Give with l MG Oral 14:00: food. "Do Herm bridgette Tablet 00 Not Crush" [Feosol] Furosemide No Notes: Memor ia 20 MG Oral -16 (Same as: l Tablet 14:00: Lasix) [place] [Lasix] 00 May cause GI upset. Give with food or milk. Zetia No Notes: Memoria 9-16 (Same as: l 14:00: Zetia) Cholecalcif No Notes: Malick aurora don -16 Same as : l 14:00: Vitamin D3 Alejandro 00 Streptococc No Notes: Malick aurroa us -16 Shake well l pneumoniae 14:00: prior to Her dill serotype 1 00 use (Same capsular as: antigen Prevnar diphtheria 13) [id number] protein conjugate vaccine / Streptococc us pneumoniae serotype 14 capsular antigen diphtheria [id number] protein conjugate vaccine / Streptococc us pneumoniae serotype 18C capsular antigen d Spironolact No Notes: Malick aurora one -16 (Same As: l 14:00: Aldactone) senna 8.6 No Notes: Memori a mg oral 9-16 (Same as: l tablet 14:00: Senokot) Protonix No Notes: Memoria 9-16 Tablet l 14:00: should not [place] 00 be chewed or crushed. (Same as: [...] oria ne 01-05 Route: l 13:40: IVP, [place] 00 Q5Min, Dosing Weight 81.818, kg, PRN [...] Rate: 50 l 0.9% IV 13:40: ml/hr, [place] 1,000 mL 00 Infuse over: 20 hr, [...] Malick aurora 01-05 Route: l 13:40: IVP, [place] 00 Q20Min, Dosing Weight 81.818, kg, PRN [...] 75/25 9-15 (Same as: l 22:57: Humalog [place] Mix) WASTE: F/P - Black; E - Municipal Trash Bin Docusate No Notes: Memoria 9-15 (Same as: l 22:00: Colace) [place] (Do Not Crush) Propranolol No Notes: Malick aurora 9-15 Give with l 22:00: food. Alejandro (Same as: Inderal) Miralax No Notes: Memoria 9-15 Dissolve l 22:00: in 8 oz of [place] 00 water or juice. (Same as: Miralax) Dunn[place]-3 No Notes: Memoria Acid Ethyl -15 (Same as: l Esters 22:00: MaxEPA, Alejandro (MCC) 1000 00 [place] 3 MG Oral fish oil ) Capsule [Lovaza] Non-Formul josy Drug NovoLOG No 55 unit, Memori a 70/30 15 Route: l 21:30: SUB-Q, Alejandro 00 BID-Before Meals, Dosing Weight 81.818, kg, Start date: 01/04/17 16:30:00 CDT, Duration: 30 day, Stop date: 02/03/17 7:30:00 CDT Humalog Mix No Notes: Malick aurora 75/25 9-15 (Same as: l 21:30: Humalog [place] ) WASTE: F/P - Black; E - Municipal Trash Bin Lyrica No Notes: Memoria 9-15 (Same as: l 18:00: Lyrica) [place] 00 Insulin No 60 Memoria Lispro 9-15 units) l 16:51: WASTE: F/P Alejandro 00 - Black; E - Municipal Trash Bin Stable for 28 days at room temperatur e. Expires in days from ____Date Dextrose No 25 gm, 50 Malick aurora 50% Syringe 9-15 mL, Route: l 16:51: IVP, Drug [place] Form: INJ, Dosing Weight 81.818, kg, PRN, PRN Blood Glucose Results, Start date: 01/04/17 11:51:00 CDT, Duration: 30 day, Stop date: 02/03/17 11:50:00 CDT Glucagon No 1 mg, Memoria 01-04 Route: IM, l 16:51: Drug form: [place] 00 PDR/INJ, PRN, Dosing Weight 81.818, kg, PRN Blood Glucose Results, Start date: 01/04/17 11:51:00 CDT, Duration: 30 day, Stop date: 02/03/17 11:50:00 CDT Oxycodone No Notes: Memori a Hydrochlori 01-04 (Same as: l de 5 MG 16:48: Roxicodone Herm bridgette Oral Tablet 00 ) Lactulose No Notes: Memori a 667 MG/ML 01-04 (Same l Oral 16:46: as:Chronul [place] Solution 00 ac) Furosemide Yes 20 mg [...] # l powder 16:41: 20 gm, 0 [place] 00 Refill(s) Lovaza No 1,000 mg Memoria 9-15 =, PO, l 16:41: BID, 0 Alejandro 00 Refill(s) NovoLOG 2017 Yes 55 unit, Memori a 70/30 9-15 SUB-Q, l 16:41: BID-Before [place] 00 Meals, 0 Refill(s) spironolact Yes 25 mg = 1 M emoria one 25 mg 9-15 tab, PO, l oral tablet 16:41: Daily, # He rmann 00 30 tab, 3 Refill(s) Cholecalcif No 1,000 Memor ia don 9-15 IntlUnit, l 16:41: PO, Daily, [place] 00 0 Refill(s) pantoprazol Yes 40 mg [...] Notes: Memoria -15 (Same l 16:39: as:MORPhin Alejandro 00 e Sulfate) Ondansetron No Notes: Malick aurora -15 (Same as: l 16:39: Zofran) [place] 00 MEDICATION WASTE Product Size: 4 mg Product Wasted: ___ mg Ondansetron No Notes: Malick aurora -15 (Same as: l 10:13: Zofran) Alejandro 00 MEDICATION WASTE Product Size: 4 mg Product Wasted: ___ mg Morphine No Notes: Memoria -15 (Same l 10:13: as:MORPhin [place] 00 e Sulfate) FAMOTIDINE Yes 40mg Take [...] MG tablet 17:56: daily. Medica l 11 [place] insulin Yes 60U Inject 60 [facility] [...] 0-22 [place] cap, l 04:03: Route: PO, [place] 00 Drug form: CAP, TID, Dosing Weight 84.3, kg, PRN Cough, Start date: 02/09/13 23:03:00, Duration: 30 day, Stop date: 03/11/13 23:02:00(S rosey As: Tiaracjelly Reva) "Do Not Crush" spironolact 2012-04 No Leeroy 50 mg, 2 Me moria one 0-21 [place] tab, l 22:00: Route: PO, [place] 00 Drug form: TAB, BID, Dosing Weight 84.3, kg, Start date: 02/09/13 17:00:00, Duration: 30 day, Stop date: 03/11/13 9:00:00([facility] As: Aldactone) Protonix 2012-04 No Leeroy 40 mg, 1 Memor ia 0-21 [place] tab, l 02:00: Route: PO, Alejandro 00 Drug form: ECTAB, Q12H, Dosing Weight 84.3, kg, Start date: 02/08/13 21:00:00, Stop date: 03/10/13 9:00:00Tab let should not be chewed or crushed. (Same as: Protonix) Anusol-HC 2012-04 No Theodoros 1 appl, Memoria 2.5% rectal 0-20 Voloyianni Route: AK, l cream with 22:00: s BID, Drug [...] 9:05:00, Duration: 30 day, Stop date: 03/10/13 8:04:00([facility] as:Nitroqu ick, Nitrostat) "Do Not Crush" Sublingual tablet atropine 2012-04 No Leeroy 0.5 mg, 5 Malick aurora 0-20 [place] mL, Route: l 14:05: IVP, Drug [place] 00 form: INJ, PRN, PRN Bradycardi a, Start date: 02/08/13 9:05:00, Duration: 30 day, Stop date: 03/10/13 8:04:00 Sodium 2012-04 No C 1,000 mL, Malick aurora Chloride 0-18 Maxian Rate: 25 l 0.9% IV 19:38: ml/hr, Alejadnro 1,000 mL 00 Infuse over: 40 hr, [...] 0-17 [place] cap, l 14:00: Route: PO, [place] 00 Drug form: CAP, Q8H, Dosing Weight [...] Memoria 0-17 [place] microgram, l 05:57: Route: Alejandro 00 IVP, ONCE, Dosing Weight 79.545, kg, Start date: 02/05/13 0:57:00, Duration: 1 doses or times, Stop date: 02/05/13 0:57:00 pantoprazol 2012-04 No Leeroy 80 mg, Malick aurora e 0-17 [place] Route: l 05:57: IVP, ONCE, [place] 00 Dosing Weight 79.545, kg, for loading [...] Kutsen Rate: 10 l Sodium 04:35: ml/hr, [place] Chloride 00 Infuse 0.9% IV 100 over: [...] 0-17 Kutsen microgram, l 04:34: 0.5 mL, [place] 00 Route: IVP, Drug form: INJ, ONCE, [...] Voloyianni TOP, l with 22:00: s Dosing [place] cleansing 00 Weight wipes oral 84.091, and [...] Jasmeet Route: PO, l 20:00: Drug Form: [place] 00 PDR/REC, Dosing Weight 84.091, kg, ONCE, Start date: 01/25/13 15:00:00, Duration: 1 doses or times, Stop date: 01/25/13 15:00:00(p olyethylen e glycol electrolyt e solution 4 Liter bottle) (Same as: Paulina Thakkar) NS 2012-04 No Reilly K IV, 30 Memoria 0-06 Jasmeet ml/hr, l 16:50: PRN, PRN Alejandro 00 Blood Transfusio n, Start date: 01/25/13 11:50:00, Duration: 1, 250 ml Vitamin K1 2012-04 No Reilly K 10 mg, 1 Memoria 0-06 Jasmeet mL, Route: l 15:31: SUB-Q, Alejandro 00 Drug form: INJ, ONCE, Dosing Weight [...] Rahim Route: IV, l 14:00: Drug form: [place] 00 INJ, Q12H, Dosing Weight 79.545, kg, [...] Rahim mL, Route: l 07:14: IVP, Drug [place] 00 form: INJ, PRN, PRN Bradycardi a, [...] tab, PO, l tablet 04:29: BID, 180 [place] 00 tab, Substituti on Allowed, TAB Metamucil 2012-04 Yes Substituti Me moria 0-05 on l 04:28: Allowed, Alejandro 44 Maintenanc e Lyrica 75 2012-04 Yes 75 mg, 1 Malick aurora mg oral 0-05 cap, PO, l capsule 04:28: TID, 90 [place] 32 cap, Substituti on Allowed, CAP Lovaza [...] PO, Daily, l tablet 04:27: 30 tab, [place] 05 Substituti on Allowed famotidine 2012-04 Yes 40 mg, PO, M emoria 0-05 BID, 60 l 04:26: tabMeenaP[place] 34 Substituti on Allowed Evista 60 2012-04 [...] Systolic (mm Hg) 2017-01-11 17:52:00 Malick rial [place] Diastolic (mm Hg) 2017-01-11 17:52:00 Mem orial [place] Heart Rate 2017-01-11 17:52:00 [facility] [place] Temperature Oral (F) 2017-01-11 13:27:00 98.4 F [facility] [place] Systolic (mm Hg) 2017-01-11 13:27:00 Malick rial Alejandro Diastolic (mm Hg) 2017-01-11 13:27:00 Mem orial Ale[place]andro Respitory Rate 2017-01-11 13:27:00 Memori al Alej[place] Heart Rate 2017-01-11 13:27:00 [facility] [place] Heart Rate 2017-01-11 09:05:00 [facility] [place] Respitory Rate 2017-01-11 09:05:00 Memori al [place] Systolic (mm Hg) 2017-01-11 09:05:00 Malick rial Alejandro Diastolic (mm Hg) 2017-01-11 09:05:00 Mem orial [place] Temperature Oral (F) 2017-01-11 09:05:00 98.5 F [facility] [place] Height 2017-01-04 19:54:00 157.48 cm [facility] [place] Weight 2017-01-04 19:54:00 [facility] [place] BMI Calculated 2017-01-04 19:54:00 Memori al [place] BMI Calculated 2017-01-04 08:41:00 Memori al [place] Weight 2017-01-04 08:41:00 [facility] [place] Height 2017-01-04 08:41:00 157.48 cm [facility] Ale[place] Heart Rate 2013-02-10 12:53:00 [facility] [place] Respitory Rate 2013-02-10 12:53:00 Memori al [place] Systolic (mm Hg) 2013-02-10 12:53:00 Malick rial [place] Diastolic (mm Hg) 2013-02-10 12:53:00 Mem orial [place] Temperature Oral (F) 2013-02-10 12:53:00 98.3 F [facility] [place] Heart Rate 2013-02-10 09:29:00 [facility] [place] Respitory Rate 2013-02-10 09:29:00 Memori al [place] Diastolic (mm Hg) 2013-02-10 09:29:00 Mem orial [place] Systolic (mm Hg) 2013-02-10 09:29:00 Malick rial Alejandro Temperature Oral (F) 2013-02-10 09:29:00 98.4 F [facility] [place] Respitory Rate 2013-02-10 04:24:00 Memori al [place] Heart Rate 2013-02-10 04:24:00 [facility] [place] Temperature Oral (F) 2013-02-10 04:24:00 98.4 F [facility] [place] Diastolic (mm Hg) 2013-02-10 04:24:00 Mem orial [place] Systolic (mm Hg) 2013-02-10 04:24:00 Malick rial [place] Weight 2013-02-05 06:05:00 [facility] [place] Weight 2013-02-05 00:04:00 [facility] [place] Height 2013-02-05 00:04:00 157.48 cm [facility] [place] Heart Rate 2013-01-27 21:10:00 [facility] [place] Temperature Oral (F) 2013-01-27 21:10:00 97.6 F [facility] [place] Diastolic (mm Hg) 2013-01-27 21:10:00 Mem orial [place] Respitory Rate 2013-01-27 21:10:00 Memori al Aeljandro Systolic (mm Hg) 2013-01-27 21:10:00 Malick rial [place] Diastolic (mm Hg) 2013-01-27 18:12:00 Mem orial Alejandro Respitory Rate 2013-01-27 18:12:00 Memori al [place] Systolic (mm Hg) 2013-01-27 18:12:00 Malick rial [place] Heart Rate 2013-01-27 18:12:00 [facility] [place] Temperature Oral (F) 2013-01-27 18:12:00 98.1 F [facility] [place] Diastolic (mm Hg) 2013-01-27 13:07:00 Mem orial Alejandro Systolic (mm Hg) 2013-01-27 13:07:00 Malick rial [place] Temperature Oral (F) 2013-01-27 13:07:00 98.3 F [facility] [place] Respitory Rate 2013-01-27 13:07:00 Memori al [place] Heart Rate 2013-01-27 13:07:00 [facility] [place] Weight 2013-01-24 06:00:00 [facility] [place] Height 2013-01-24 06:00:00 157.48 cm [facility] [place] Weight 2013-01-24 00:44:00 [facility] [place] Height 2013-01-24 00:44:00 160.02 cm [facility] Procedures Procedure Date / Time Performing Clinician Source Performed [place] ABDOM PARACENTESIS 2020-03-02 21:00:00 Inder Whitney MD And erson DX/THER W IMAGING GUIDANCE CYTOLOGY NON-DRY COLOR MIXER 2020-02-26 21:08:00 Bonilla Camacho MD Lm son INTERPRETATION [place] ABDOM PARACENTESIS 2020-02-26 20:20:00 Inder Whitney MD [...] MANUAL DIFFERENTIAL 2020-02-26 19:30:00 [facility] 2020-02-26 19:30:00 Inder Whitney MD BLOOD UREA NITROGEN 2020-02-26 19:30:00 [facility] ELECTROLYTE PANEL 2020-02-26 19:30:00 Inder Whitney MD Andadalido n SERUM CREATININE 2020-02-26 19:30:00 Inder Whitney MD .GLOMERULAR FILTRATION 2020-02-26 19:30:00 Inder Whitney MD derson RATE CALCIUM LEVEL TOTAL 2020-02-26 19:30:00 [facility] ALBUMIN LEVEL 2020-02-26 19:30:00 Inder Whitney MD ALKALINE PHOSPHATASE 2020-02-26 19:30:00 Inder Whitneye rson ALANINE AMINOTRANSFERASE 2020-02-26 19:30:00 Inder Whitney MD ASPARTATE AMINOTRANSFERASE 2020-02-26 19:30:00 Inder Whitney TOTAL PROTEIN 2020-02-26 19:30:00 Inder Whitney MD FRACTIONATED BILIRUBIN 2020-02-26 19:30:00 Inder Whintey MD derson OSI CT CHEST ABDOMEN 2020-01-19 [...] STUDY 2019-10-27 14:55:00 Lizett Fairbanks [facility] SPINE 2019-10-15 17:07:25 [...] [U] XRAY HIP UNILATERAL 2019-01-07 [facility]:00[facility] [id number] Physicians [U] XRAY HIP UNILATERAL 2019-01-02 00:00[facility]00 [facility] [id number] Physicians [U] XRAY HIP UNILATERAL 2018-01-01 00:00[facility]00 [facility] [id number] Physicians [U] XRAY HIP UNILATERAL 2017-12-20 00:00:00 [facility] [place] [facility] [id number] Physicians [U] XRAY HIP UNILATERAL 2017-08-21 00:00[facility] [id number] Physicians [U] XRAY FOOT MIN 3 VWS 2017-05-29 00:00:00 [facility] LEFT [id number] Physicians [U] XRAY HIP UNILATERAL 2017-05-23 00:00:00 [facility] MIN 2 VWS RIGHT [id number] Physicians Endoscopic Excision or 2013-02-06 05:00:00 Memor ial [place] Destruction of Lesion or Tissue of Esophagus Transfusion of Packed 2013-02-05 05:00:00 Memori al Alejandro Cells Colonoscopy 2013-01-26 05:00:00 [facility] Colonoscopy 2013-01-26 05:00:00 [facility] Endoscopic Excision or 2013-01-26 05:00:00 Memor ial [place] Destruction of Lesion or Tissue of Esophagus Transfusion of Packed 2013-01-24 05:00:00 Memori al [place] Cells Appendectomy [facility] [place] Cholecystectomy [facility] [place] Hysterectomy [facility] Laminectomy [facility] TIPS - Transjugular [facility] intrahepatic portosystemic shunt Appendectomy [facility] [place] Hysterectomy [facility] [place] Plan of Care Planned Activity Planned Date Details Comments Source Future Scheduled 2019-12-22 INFLUENZA VACCINE (#1) [facility] Test 00:00:00 [code = INFLUENZA Medical Ce nter VACCINE (#1)] Future Scheduled 2016-11-[address] [address] [facility] - Test 00:00:00 [facility] (procedure) [code = 16203716] Future Scheduled 2014-04-[address] [...] 00:00:00 examination Medical Center (regime/therapy) [code = 656440959] Future Scheduled 1952 Urine screening for [facility] - Test 00:00:00 protein (procedure) Medical Center [code = 280541027] Encounters Start End Encounter Admission Attending Care Care Encounter Source Date/Time Date/Time Type Type Clinicians Facility Department ID 2020-01-27 Outpatient SYSTEM, MDA MDA [id number] 14:21:23 PROVIDER Dmitriy o darinel 2019-11-19 Outpatient MDA MDA [id number] 11:55:51 Andadalido darinel 2020-03-04 2020-03-04 Outpatient EL LE, PHAT MDA MDA [id number] 10:30:00 23:59:00 Dmitriy o darinel 2020-03-02 2020-03-02 Outpatient INDER BALDWNI MDA MDA [id number] 14:49:46 23:59:00 Dmitriy o n 2020-02-26 2020-02-26 Outpatient INDER BALDWIN MDA MDA [id number] 13:40:27 23:59:00 Dmitriy o darinel 2020-02-26 2020-02-26 Outpatient INDER BALDWIN MDA MDA [id number] 13:14:59 13:39:00 Dmitriy o n 2020-01-29 2020-01-29 Outpatient EL LE, PHAT MDA MDA [id number] 11:37:09 11:56:54 Dmitriy o n 2020-01-26 2020-01-26 Outpatient INDER WHITNEY MDA MDA [id number] 14:35:56 14:35:56 Dmitriy o n 2020-01-26 2020-01-26 Outpatient LE, PHAT MDA MDA [id number] 11:52:43 11:52:43 Dmitriy o n 2020-01-26 2020-01-26 Outpatient LE, PHAT MDA MDA [id number] 11:52:40 11:52:40 Dmitriy o n 2020-01-26 2020-01-26 Outpatient LE, PHAT MDA MDA [id number] 11:52:38 11:52:38 Dmitriy o n 2020-01-26 2020-01-26 Outpatient LE, PHAT MDA MDA [id number] 11:52:36 11:52:36 Dmitriy o darinel 2020-01-26 2020-01-26 Outpatient LE, PHAT MDA MDA [id number] 11:52:33 11:52:33 Dmitriy tena 2019-11-23 2019-11-23 Outpatient EL LE, PHAT MDA MDA [id number] 00:00:00 00:00:00 Dmitriy o darinel 2019-11-19 2019-11-19 Outpatient EL LE, PHAT MDA MDA [id number] 15:19:54 15:19:54 Dmitriy o darinel 2019-11-19 2019-11-19 Outpatient EL BUNNY, MDA MDA [id number] MD 15:02:03 15:18:13 MACHELLE tena 2019-11-19 2019-11-19 Outpatient EL HALLADAY, MDA MDA [id number] 11:25:38 11:25:38 MARINA tena 2019-11-19 2019-11-19 Outpatient EL HALLADAY, MDA MDA [id number] 00:00:00 00:00:00 MARINA Hopeers o darinel 2019-11-19 2019-11-19 Outpatient EL LE, PHAT MDA MDA [id number] 00:00:00 00:00:00 Dmitriy o darinel 2019-11-06 2019-11-06 Outpatient EL HALLADAY, MDA MDA [id number] 00:00:00 00:00:00 MARINA Izaguirre o darinel 2019-11-06 2019-11-06 Outpatient EL BUNNY, MDA MDA [id number] 00:00:00 00:00:00 MACHELLE Hopeers o darinel 2019-11-06 2019-11-06 Outpatient EL LE, PHAT MDA MDA [id number] 00:00:00 00:00:00 Dmitriy o darinel 2019-11-05 2019-11-05 Outpatient EL HALLADAY, MDA MDA [id number] 00:00:00 00:00:00 MARINA tena 2019-11-05 2019-11-05 Outpatient EL LE, PHAT MDA MDA [id number] 00:00:00 00:00:00 Dmitriy o darinel 2019-11-05 2019-11-05 Outpatient EL BUNNY, MDA MDA [id number] 00:00:00 00:00:00 MACHELLE Hopeers o darienl 2019-11-05 2019-11-05 Outpatient EL HALLADAY, MDA MDA [id number] 00:00:00 00:00:00 MARINA tena 2019-11-05 2019-11-05 Outpatient EL LE, PHAT MDA MDA [id number] 00:00:00 00:00:00 Dmitriy tena 2019-11-05 2019-11-05 Outpatient EL BUNNY, MDA MDA [id number] 00:00:00 00:00:00 MACHELLE Hopeers milton tena 2019-10-27 2019-10-27 Office anti, BCM [id number] 12:40:52 14:00:56 Visit Lizett Canseco AMBULATOR [id number] Y [id number] 2019-01-14 2019-01-14 [facility] [id number] Univers 13:15:00 13:15:00 t; MILAGROS MENON Trauma ity o f ANDREW, M.D. [facility] 2019-01-07 2019-01-07 [facility] [id number] Univers 13:00:00 13:00:00 t; MILAGROS MENON Trauma ity o f ANDREW, M.D. [facility] 2018-01-08 2018-01-08 [facility] [id number] Univers 13:00:00 13:00:00 t; MILAGROS MENON ity o f ANDREW, M.D. [facility] 2018-01-01 2018-01-01 [facility] [id number] Univers 13:00:00 13:00:00 t; MILAGROS MENON ity o f ANDREW, M.D. [facility] 2017-08-28 2017-08-28 [facility] [id number] Univers 13:00:00 13:00:00 t; MILAGROS MENON ity o f ANDREW, M.D. [facility].D. Physici ans 2017-05-29 2017-05-29 Appointmen [facility] [id number] Univers 13:00:00 13:00:00 t; MILAGROS MENON ity o f ANDREW[facility]. [facility] 2017-02-27 2017-02-27 Appointmen ANN MENON UTP [id number] Univers 13:00:00 13:00:00 t; MILAGROS MENON ity o f ANDREW, M.[facility]. [facility] 2017-01-30 2017-01-30 Appointmen ANN QUIROZ UTP [id number] Univers 13:15:00 13:15:00 t; SURAJ QUIROZ NP ity of [place]AM[place], NP [place] [facility] 2017-01-29 2017-01-29 Outpatient Lynsey, 2.16.840. [id number] 11:10:00 23:59:00 Milagros Duarte [id number] 2017-01-04 2017-01-11 Outpatient Kim, [facility] [id number] 03:38:00 15:18:00 Mary Claros 2013-02-04 2013-02-10 Outpatient MHIE MHIE [id number] [facility] 19:02:00 12:10:00 01 [facility] 2013-02-04 2013-02-10 Outpatient MHIE MHIE [id number] [facility] 19:02:00 12:10:00 01 [facility] 2013-02-04 2013-02-10 Outpatient MHIE MHIE [id number] [facility] 19:02:00 12:10:00 01 [facility] 2013-02-04 2013-02-10 Outpatient MHIE MHIE [id number] [facility] 19:02:00 12:10:00 01 [facility] 2013-02-04 2013-02-10 Outpatient MHIE MHIE [id number] [facility] 19:02:00 12:10:00 01 [facility] 2013-01-23 2013-01-27 [id number] 19:17:00 18:20:00 00 [facility] 2013-01-23 2013-01-27 Outpatient LOVELY IE [id number] [facility] 19:17:00 18:20:00 00 [facility] 2013-01-23 2013-01-27 [id number] [address] [place] [address] 19:17:00 18:20:00 00 [facility] Results Test Description Test Time Test Comments [...] Puncture site: L lower quadrant Puncture method: Pznt-eoi-ynoeqe catheter Ultrasound guidance: yes (ultrasound was used [...] reported symptomatic improvement. Catheter stopped flowing about long-term through and a new onestep catheter had to be inserted in the same location. Cytology [employer] Interpretation 2020-03-01 18:44:00 Test Item Value Reference Range Interpretation Comme nts Major Classification (test code = 9839) [facility]/benign Diagnosis (test code = 34) z5kdgASoLCKrnKZ2VjAqKFYhf6otv3KtkBBkvRW tYBlukMTzfdSteh95sDX5xJ21ZZ8oDCWxJwA8YK HyhmV6Tgq3PTOsLGDrfRAoN475t2wst6dtyrYin XQ0gVenOCYhBUQmLOgxNDDrXbJbnCUlNDRrWQTg H6h1fRDgFxz4bOHtRNThzsQzXS05LQFodhdkySS lTOSzvzd6LCHaAm0xnDOafOueSP43BZKmcOhuKB zoYA70nBKmDICmGREimytpUTBkoKFhnE== Informational Points (test code = 9836) l3conXDhBFZruWTpCdDs ILPlJFZtw5tiCCAebEI cNlIbJoDlYrPeUmhzvHKdEXJlGxQjv0ecv632jW Gvr8pwMZBuWeW1vBVlHGAarCWcK459ADVdWTwjd 3qxo4GoFZQjeNYrf7O6HMTEPOayFMJPJWw9m2pp AdPqLpQ5iGXoQXmaX5nkjyOhfAOmASGhXQx2pP7 6TDYydC0hcOGxJMzazhGlOsM5HCysWZMrKwF3VT PppDDyQRGcC3lhQTVvCTuoISBlMUlqlZLrKTF7o Zdbk2K4qVIlsFSvvAuzYrKoVhObUeSLd4FmMOn1 mJbrH4FsVQIgJfQ6cDItZPTsMRhlCZLyMMScpaE 4yD13NHeoygG5nYJut1Yyd98qu661mF9quDCzPB M5PYVwUQDfrLVbMUZhUKR0ITVruSZaN6apWRIoE D8kdzlwNNvgDHzbWENmyRG6JLMdiMOyU2KzUZVx HIjrPEZrqrm4UuYtQt2rjEQcuIymUNhem1jle0e yzXBdBsh1MMAiGfOjDnevVAkil4Ycy8yzNSLqyf 8mIFT9hFXfeMlmm7Z0dURcQLLvpTUtcpYjMUInW yB6PNcmCE9cpy75XPFxRZE1sy1bfQQvcSekmjSn pNYvSIijF7DpZLKnw858MRDjZ1MuGGIfh8O7cmI vHwHuBMTjgPT1lnB1HAVyVYf2dUTlqiI3xgSmsD EbZ0cakN0bPKSaIT8iphvqx4fiZTxuWIhxPRUnm ZR8sfL6KGPlyESvT8VjqQ1vWHIpVYukEWAtsie8 RuVpFu8knLLuaYdhIGjaKigyDJkpSQDfsjTvjrX ccGduZGVjXHBsYWluXHBsYWluXGYwXGZzMjRccW gnqIqwxB3yJwMhYsEwIDmqQE0yEVTnR7tjoXDiK JNoGNYeB3huJfXhhK3yxNcvBHpcogI3EKwwS25c SDQ0BFN8ctBjLWNnmsZzJLHmWJReIQ0buPBjIFM uYIYkFN9rDTK3XEyrpGHjSOJiPUWuYIPdo4TiRE 3sEKYukWHeLLG2AHRzi7CbO2HsHDB1VMJmuU6cB IGddINYQSPSQSYGlfKglyIqksRLEQEsh7cfM5qr LJ3sCYbqTy9vIDSjhxotVCRmmOQkkoEqLQZhDOC jJTHtc9VdNBvqkqTves74NXElOR9dg8DtR2ihyL PlrHr6JNSpKWDcMSWpw1HvOFMiwi84VCDjCtbsb QjsTUExXt3sUu1hBLZhdjQmHYH1DsSAIK3okkeq fSJcnVggmw8cILEgCPkpFTBgABDhNbTbgWYcQbU eCyLwrLynfBcfJaitSmMfYTTkQWpdJ6muKsBxQk MyMlxwYXJ9 MD GalvezFractionated Kiklenotz5290-94-99 20:35:53 Test Item Value Reference Range Interpretation [...] thanks Lab Interpretation Abnormal (test code = 94409-1) MD GalvezCalcium Phrxe6392-22-60 20:35:52 Test Item Value Reference Range Interpretation Comments Calcium Lvl (test code = 8.2 mg/dL 8.4-10.2 L 5258) ANIL (test code = ANIL) Please schedule an hour prior to the procedure. thanks Lab Interpretation (test Abnormal code = 35871-3) MD GalvezAlbumin Yhfyb1934-19-42 20:35:51 Test Item Value Reference Range Interpretation Comments Albumin Lvl (test code = 2.7 3.5- 5.2 gm/dL L 4763) ANIL (test code = ANIL) Please schedule an hour prior to the procedure. thanks Lab Interpretation (test Abnormal code = 83395-9) MD GalvezAspartate Exqheowofjtwmauw2463-78-37 20:35:50 Test Item Value Reference Range Interpretation Comments AST (test code = 4731) 54 U/L <=32 H ANIL (test code = ANIL) Please schedule an hour prior to the procedure. thanks Lab Interpretation (test Abnormal code = 82309-5) MD GalvezElectrolyte Hcuoh1639-93-59 20:35:48 Test Item Value Reference Range Interpretation [...] thanks Lab Interpretation (test Abnormal code = 52785-7) MD GalvezGlomerular Filtration Nyeo0037-25-19 20:35:47 Test Item Value Reference Range Interpretation [...] prior to the procedure. thanks MD GalvezGlucose Zoulh5725-71-70 20:35:46 Test Item Value Reference Range Interpretation Comments Glucose Level (test 273 mg/dL 70-99 H Referenc e range is code = 5699) valid for fasti ng specimens only. Guidelines established by the [employer] guidelines (Standards of Medical [...] thanks Lab Interpretation Abnormal (test code = 41473-6) MD GalvezTotal Mirlnln2054-18-43 20:35:45 Test Item Value Reference Range Interpretation Comments Total Protein (test 6.7 g/dL 6.4-8.3 code = 7649) ANIL (test code = ANIL) Please schedule an hour prior to the procedure. thanks MD GalvezMagnesium Ovwlf4948-65-19 20:35:44 Test Item Value Reference Range Interpretation Comments Magnesium (test code = 1.9 mg/dL 1.6-2.6 6359) ANIL (test code = ANIL) Please schedule an hour prior to the procedure. thanks MD GalvezAlkaline Yhnngunvzgl4007-79-19 20:35:43 Test Item Value Reference Range Interpretation Comments Alk Phos (test code = 135 U/L 35-104 H 4768) ANIL (test code = ANIL) Please schedule an hour prior to the procedure. thanks Lab Interpretation (test Abnormal code = 32907-1) MD GalvezRetiswytVSK0168-31-11 20:35:41 Test Item Value Reference Range Interpretation Comments ALT (test code = 22 U/L <=33 4705) ANIL (test code = ANIL) Please schedule an hour prior to the procedure. thanks MD Galvez.Serum Jcyyompoks6578-76-26 20:35:40 Test Item Value Reference Range Interpretation Comments Creatinine (test code = 0.57 mg/dL 0.51-0.95 5399) ANIL (test code = ANIL) Please schedule an hour prior to the procedure. thanks MD GalvezDczcflwpZVV4278-25-62 20:35:39 Test Item Value Reference Range Interpretation Comments BUN (test code = 9 mg/dL 6- 5055) ANIL (test code = ANIL) Please schedule an hour prior to the procedure. thanks MD GalvezPartial Thromboplastin Alec5727-33-43 20:34:26 Test Item Value Reference Range Interpretation Comments PTT (test code = 35.4 24.2- 36.0 second(s) 6773) ANIL (test code = Please schedule an hour ANIL) prior to the procedure. thanksThis lab cannot be scheduled at the following locations due to collection/proccessing restrictions: [facility] and [facility]. MD GalvezPT/[id number] 20:34:25 Test Item Value Reference Range Interpretation Comments PT (test code = 6746) 20.6 12.0- 14.3 H second(s) INR (test code = 5973) 1.81 0.90-1.10 H ANIL (test code = ANIL) Please schedule an hour prior to the procedure. thanksThis lab cannot be scheduled at the following locations due to collection/proccess ing restrictions: [facility] and [facility]. Lab Interpretation (test Abnormal code = 64252-8) MD GalvezTdmialiwMvyitnscuizz0792-57-22 20:20:00JHONY Wood 02/26/2020 3:25 PMParacentesis Date/Time: 02/26/2020 [...] Puncture site: L lower quadrant Puncture method: Htlh-hyi-pysykl catheter Ultrasound guidance: yes Indwelling catheter placed: No Catheter size: 5F. Fluid removed amount: 5000mL Fluid appearance: Yellow Dressing: Adhesive bandagePost-procedure details: Specimen(s) removed: Yes Specimen collected: Specimen sent to cytology transport jobnumber [id number] Estimated blood lost: None Complications: No Patient tolerance of procedure: Tolerated well, no immediate complicationsComments: Blood pressure was checked prior to procedure and each liter and remained stable throughout.MD GalvezDifferential 2020-02-26 19:55:35 Test Item Value Reference Range Interpretation Comments Neutrophil % (test 84.9 % 42-66 H code = 13998-4) Lymphocyte % (test 5.5 % 24-44 L code = 737-7) Monocyte % (test code 8.8 % 2-7 H = 744-3) Eosinophil % (test 0.1 % 1-4 L code = 713-8) Basophil % (test code 0.2 % 0-1 = 707-0) IGRE % (test code = 0.5 % 0-0.4 H IGRE % c ount 94599-0) includes Metamyelocytes, Myelocytes, and Promyelocytes. Neutrophil Abs (test 12.13 K/uL 1.7-7.3 H code = 753-4) Lymphocyte Abs (test 0.78 K/uL 1-4.8 L code = 732-8) Monocyte Abs (test 1.26 K/uL 0.08-0.7 H code = 743-5) Eosinophil Abs (test 0.01 K/uL 0.04-0.4 L code = 712-0) Basophil Abs (test 0.03 K/uL 0-0.1 code = 705-4) IG Abs (test code = 0.07 K/uL 0-0.04 H 30118-9) ANIL (test code = ANIL) Please schedule an hour prior to the procedure. thanks Lab Interpretation Abnormal (test code = 40895-2) MD Galvez.YOV6731-61-13 19:55:29 Test Item Value Reference Range Interpretation [...] (test code = 50.1 fL 35.1-46.3 H 26759-5) RDW-CV (test code = 15.7 % 12-15.5 [...] thanks Lab Interpretation Abnormal (test code = 04250-2) MD GalvezOSI CT CHEST ABDOMEN [id number] 16:14:221. Increasing sizes of liver tumors in [...] conglomerate of varices or possibly a metastasis.MD [facility] Oxkdz1592-65-54 17:08:32For comparison only. No interpretation requested.MD GalvezLDS [facility]ITAL CT Urgve8441-38-74 17:07:30For comparison only. No interpretation requested.MD [facility]vezWAL[facility] Abdomen with and without Bpifxyhd1483-42-33 19:42:331. Decreasing dominant mass in segments 6 [...] Mora Verified Date/Time: 10/28/2019 10:00:07 Reading Location: [place] [address] XR DXA Bone Density Bhsgu6566-69-46 10:00:00Interface, External Ris In - 10/28/2019 10:02 [...] Mora Verified Date/Time: 10/28/2019 10:00:07 Reading Location: [facility] Reading Room [address] [place] [address] signed by: BELLA MORA MD on 10/28/2019 10:00 [facility][U] XRAY HIP UNILATERAL MIN 2 VWS LEFT [id number] 13:01:00 Images acquired, not reported on this accession number.[facility] W/PLT COUNT & AUTO [id number] 15:08:00 Test Item Value Reference Range Interpretation [...] = 2801) BONE AND/OR JOINT IMAGING, WHOLE RDDR4319-72-33 16:56:00Location->[facility] HospitalFINAL REPORT PROCEDURE: BONE SCAN, WHOLE BODY CPT CODE: 01554 INDICATION: HCC, cirrhosis PROTOCOL: 21.3 mCi of [...] MDReport Verified Date/Time: 06/05/2017 16:56:04 Reading Location: [address] CT, ABDOMEN, [id number] 15:02:00Liver Prctocol-Triple PhaseLocation->[facility] HospitalFINAL REPORT CT OF THE CHEST [...] MDReport Verified Date/Time: 06/05/2017 15:02:52 Reading Location: [address] Body Reading Room CT, CHEST, WITHOUT [id number] 15:02:00Location->[facility] HospitalFINAL REPORT CT OF THE CHEST [...] MDReport Verified Date/Time: 06/05/2017 15:02:52 Reading Location: [address] Body Reading Room ALPHA FETOPROTEIN (AFP), TUMOR [id number] 14:15:00 Test Item Value Reference Range Interpretation Comments ALPHA-FETOPROTEIN (BEAKER) (test 7.2 ng/mL <10.0 code = 1094) COMPREHENSIVE METABOLIC [id number] 14:02:00 Test Item Value Reference Range Interpretation [...] PATIEN TS. CBC W/PLT COUNT & AUTO NUCZQRHWYFRG6774-70-93 13:25:00 Test Item Value Reference Range Interpretation [...] 0-1 PERCENT (BEAKER) (test code = 2801) MJTX-TXEXRMWQRG0311-62-14 12:17:00 Test Item Value Reference Range Interpretation Comments POC-CREATININE 0.6 mg/dL 0.6-1.3 TESTED AT [facility] [address] ([facility]) (test [place] code = 5754) [address] POC-EGFR (BEAKER) 98 mL/min/1.73M2 (test code = 7000) CHEM NPBGX6218-82-21 08:25:0092[facility] ESRIX9680-19-79 08:25:003.3 [facility] PWJCL8708-97-81 08:25:96735Bpjkaazg HermannCHEM PANEL 2017-01-11 08:25:67601Zgvjawsx HermannCHEM ZTWWM3520-70-89 08:25:008.3[facility] LUOJW3725-73-70 08:25:0012.3[facility]ann[facility] YLXJP4167-04-08 08:25:0030[facility]ann[facility] YAKMI1564-12-91 08:25:99518Kqhqogxk HermannCHEM PTCXS2855-03-90 08:25:007[facility] IJOHV7314-71-27 08:25:000.56 [facility] KjtcdygETNQSTBTEN8458-35-82 08:25:00 Test Item Value Reference Range Interpretation Comments PT (test code = PT) 16.1 s 12.0-14.7 [facility] PnrrdmxMLXYOQDSPW6874-23-12 08:25:001.26[facility]annCHEM PANEL 2017-01-11 05:31:003.0[facility] ZSWLG3062-18-15 05:31:001.4[facility] XjmzgfxTWWQCCVOHK9959-51-97 05:31:93368Kaiekqyj HvbhipoMHJWZBMIYM3570-42-58 05:31:009.2[facility] XdzhglfZIKZNPPTTO3801-72-08 05:31:0014.7[facility] DCWBCGIXHO2513-01-96 05:31:0033.9[facility] DmyujfbIOZQRVAGQB3140-26-04 05:31:00 Test Item Value Reference Range Interpretation Comments MCH (test code = MCH) 31.6 pg 27.0-31.0 [facility] DnrmftsVEVDHLSJYC7641-13-88 05:31:0093.3[facility]annHEMATOLOGY 2017-01-11 05:31:0010.6[facility] IfrdlqiWFMJDEYYDH2525-01-40 05:31:006.9[facility] AsjahhdVQXZXAHZQR8010-41-32 05:31:0031.2[facility] MjmpgnfAGGHIRBEFA4713-53-86 05:31:003.34[facility] UmiezghOYWYZGMJAC4446-93-47 05:31:0056.2[facility] JVARROGGTQ2307-77-44 05:31:0026.0[facility] KxjnirxHFETUGXOYT2152-68-00 05:31:00 0.2[facility] TooabenSQOQLOJTUQ5243-06-77 05:31:001.8[facility]annHEMATOLOGY 2017-01-11 05:31:001.0[facility] TlcaifnPFKHITWUCM8292-87-82 05:31:000.7[facility] ZufrhwyLJWJPIUYHB9878-30-10 05:31:0014.1[facility] HhcwotqHQVISUAPII6887-06-47 05:31:003.0[facility] MfpsisgABQECNYSOZ4824-48-46 05:31:003.9[facility]annCHE[facility] TGGQJ1379-55-10 06:35:002.4[facility]annCHE[facility] WMXSA3524-49-07 06:35:001.8 [facility]annCHE[facility] HWXWT4597-77-06 06:35:0063[facility]annCHEM PANEL 2017-01-10 06:35:0027[facility]annCHE[facility] ACXDR5585-76-70 06:35:0099[facility]annCHE[facility] TNDCK4604-39-13 06:35:008.7[facility]annCHE[facility] WKFEA9603-34-67 06:35:0013.3[facility]ann[facility] NVKTB4571-64-70 06:35:55844Ptlsjqdn HermannCHEM ZSSWI9679-07-42 06:35:29408Zosiwxtf HermannCHEM XAMBP0919-91-93 06:35:000.91 [facility]annCHE[facility] LVKYZ2895-84-20 06:35:003.3[facility]annCHEM PANEL 2017-01-10 06:35:008[facility] CvesuqgAFOISSGCTI6264-62-71 06:35:00 Test Item Value Reference Range Interpretation Comments MCH (test code = MCH) 31.9 pg 27.0-31.0 [facility] LfcokgvMCZEWRGCXU0517-69-31 06:35:79112Qowyoktn HermannHEMATOLOGY 2017-01-10 06:35:009.4[facility] FkstxirIPAGITJJAK8022-18-54 06:35:0034.5[facility] BxiirgeAEJZHWMGAN3096-18-65 06:35:0014.8[facility] QugdbtyGFKRZEJHQO2617-17-39 06:35:0035.1[facility] BlwxsdjGSQSFHXGRD8820-74-84 06:35:007.6[facility] YUEMUSQAJP5808-49-39 06:35:003.80[facility] OkmclttOKVMFWHNBQ3103-00-51 06:35:00 12.1[facility] VzlpfrbANOTZVJBET4291-27-11 06:35:0092.5[facility] HermannHEMATOLOGY 2017-01-10 06:35:001.19[facility] BxrwcvfFBNUWTAJEQ7088-16-52 06:35:00 Test Item Value Reference Range Interpretation Comments PT (test code = PT) 15.4 s 12.0-14.7 [facility] GflbprcMHTGDJKUJF4121-64-42 06:35:0027.4[facility] HermannHEMATOLOGY 2017-01-10 06:35:0013.0[facility] XncknrbTCLDTAFFNT6944-99-86 06:35:003.3[facility] PiexvlaAJRXNJUYYR9558-16-21 06:35:0055.8[facility] GlfsznmVQBLCOQKXR2668-37-79 06:35:000.5[facility] FqytkwvWUCUVTHYMT9865-14-88 06:35:002.1[facility] EXLBIIVBEF4327-03-04 06:35:001.0[facility] WwiapkuGSQIBPQEEE6506-18-94 06:35:000.3 [facility] DahizmnGTBYEEEXXZ8061-39-87 06:35:004.2[facility] HermannCHEM PANEL 2017-01-09 11:19:002.5[facility] HermannCHEM AWGUA7687-93-69 11:19:001.6[facility]annCHEM YWMVJ0545-36-81 11:19:0089[facility]annCHEM FUUUZ2730-90-01 11:19:008[facility]annCHEM ACXOJ4071-84-64 11:19:20949Dnvhutni HermannCHEM GVIWB7052-43-75 11:19:000.62[facility] HermannCHEM PREXB9303-06-06 11:19:0098 [facility]annCHEM AUSLY3918-05-80 11:19:0027[facility] HermannCHEM PANEL 2017-01-09 11:19:008.5[facility] HermannCHEM INQEA4543-84-83 11:19:003.6[facility]annCHEM ODSTU0088-68-48 11:19:40443Epgcbsik HermannCHEM RBUPC7905-00-15 11:19:0013.6[facility] HcprneqNQKDSRABAE8056-41-80 11:19:000.1[facility] ITPEHPTISE3717-37-32 11:19:000.3[facility] QxdiuwtFFHDBZAPYZ9171-04-03 11:19:001.0 [facility] WbjdaztUVBIZASHYN3242-62-93 11:19:002.0[facility] HermannHEMATOLOGY 2017-01-09 11:19:003.8[facility] MpuzbbwWCXAPEBMWG7919-92-88 11:19:0013.6[facility] SdtdpihKNSXLOUOJJ3277-43-14 11:19:0027.2[facility] IrssddyQNEKYUNWAM5863-28-55 11:19:004.0[facility] HfkvmywJXVETVUFWV4714-58-57 11:19:0054.7[facility] PBARMEZNYS5109-33-64 11:19:000.7[facility] PllcpqsPBGBPGZSYG0233-43-27 11:19:00 Test Item Value Reference Range Interpretation Comments PT (test code = PT) 15.3 s 12.0-14.7 [facility] ExyqdqaKHMRVUOFCD5293-41-64 11:19:001.18[facility] 2017-01-09 11:19:94202Tsrtkezq OaqxchtCUPHLDNTTQ3884-82-35 11:19:0014.7[facility] FhdcthlLPEMUCADYE5445-94-99 11:19:009.6[facility] RqnindoUBHOTOKGAB8805-53-51 11:19:0034.6[facility] ZnwtntwXXNBPAHUBA5090-72-39 11:19:0092.1[facility] IAGCJTLYRP5607-35-51 11:19:0033.2[facility] RdrrmptJZBDAPEICV0439-32-87 11:19:00 Test Item Value Reference Range Interpretation Comments MCH (test code = MCH) 31.9 pg 27.0-31.0 [facility] QdaxwvqIUQQDVRBPM6205-50-92 11:19:003.60[facility] 2017-01-09 11:19:0011.5[facility] VsltioeKBQXIZLOWB9925-05-03 11:19:007.2[facility]annCHEM JZZCU1459-07-54 01:08:006.2[facility]annCHEM OLOVG8044-52-65 01:08:002.7[facility]annCHEM VTLKZ3633-92-66 01:08:0024[facility]annCHEM IUQDZ0076-59-55 01:08:0040[facility]annCHE[facility] NGMEB6305-57-58 01:08:94614 [facility]CHE[facility] WTFDH5192-91-11 01:08:001.8[facility]annCHEM PANEL 2017-01-09 01:08:000.4[facility]annCHEM XGUUR7707-51-68 01:08:003.5[facility]annCHE[facility] QUVAV8458-17-14 01:08:000.8[facility]annCHEM PEXNY1997-80-60 01:08:001.4[facility] OlpjxmbIDSCEGMWTI4498-68-23 01:08:000.1[facility] YHDDUYWVXO8868-63-77 01:08:00 Test Item Value Reference Range Interpretation Comments Pos CO Value (test code = Pos CO 0.400 1 Value) [facility] SedcxjiXLKFXIVMIB0874-57-32 01:08:00Negative 1(01/08/17 8:08 PM)[facility] ErbimoyXIQYAAPBHV2639-01-35 01:08:00 Test Item Value Reference Range Interpretation Comments Pat Od Value (test code = Pat Od 0.082 1 Value) [facility]CHE[facility] KXDSD0351-96-12 17:33:0028.6[facility]annPARATHYROID ITHCSZI2691-35-94 17:33:0033.4[facility]annCHEM FISHL0192-19-16 11:20:0017 [facility]annCHE[facility] RFCZH5919-22-61 11:20:000.8[facility]annCHEM PANEL 2017-01-05 11:20:003.5[facility]annCHEM XKWRV1619-57-12 11:20:0032[facility]annCHEM ZFUYX0727-33-32 11:20:65783Xepzrypf HermannCHEM SOZEZ4137-56-98 11:20:0058[facility]annCHEM SJRGJ8584-20-56 11:20:006.3[facility]annCHEM IUZWA9244-79-95 11:20:002.8[facility]annCHEM BOXPK4132-05-55 11:20:001.6 [facility] ZxugqwhBRPCHENKJL5246-00-75 11:20:000.1[facility]annSPECIAL CTNUBQBWJ9728-42-12 11:20:008.7[facility] OqzdybjQVXXRQOVIT5233-14-39 16:27:00 Test Item Value Reference Range Interpretation Comments PTT (test code = PTT) 30.9 s 22.9-35.8 [facility] YVHJK7996-74-44 13:30:000.4[facility]annCHEM PANEL 2017-01-04 13:30:001.6[facility]annCHEM EOXOW1446-95-90 13:30:000.8[facility]annCHEM JJQXM3728-42-37 13:30:004.0[facility]annCHEM QWAIN0989-33-61 13:30:001.2[facility]annCHEM YYRHP1148-80-19 13:30:007.4[facility]annCHEM BPYMC0013-74-42 13:30:82073Jhlzpuhf HermannCHEM VKNMJ4582-55-74 13:30:003.4 [facility]CHE[facility] TZNBS9128-74-42 13:30:0039[facility]annCHEM PANEL 2017-01-04 13:30:0058[facility]BL[facility] YAAZPWU0768-92-19 10:12:00 Negative (01/04/17 5:12 AM)[facility]FzdjpzzNZLDUCDMCH4867-17-64 09:39:40 Test Item Value Reference Range Interpretation Comments K-time Rapid (test code = K-time 1.0 min 0.6-2.3 Rapid) [facility]TqmofblGAQBBNSSQC5789-41-69 09:39:40 Test Item Value Reference Range Interpretation Comments ACT (TEG) Rapid (test code = ACT (TEG) 97 s 86-118 Rapid) [facility]az[facility]ldtNUXEEGFDKP9533-57-59 09:39:40 Test Item Value Reference Range Interpretation Comments R-time Rapid (test code = R-time 0.5 min 0.4-0.7 Rapid) [facility]KeccejyGTKXIMIDYC8613-56-70 09:39:40 Test Item Value Reference Range Interpretation Comments Split Point Rapid (test code = Split 0.3 min Point Rapid) [facility] HospitalLdjwkplLFQTPKEXZK9867-37-77 09:39:40 Test Item Value Reference Range Interpretation Comments Angle Rapid (test code = Angle 78 degrees 64-80 Rapid) [facility] HospitalRbckwefSZKNTEMEJD8276-66-20 09:39:40 Test Item Value Reference Range Interpretation Comments Max Amplitude Rapid (test code = Max 62 mm 52-71 Amplitude Rapid) [facility] HospitalXbboxzlLZBTHQSMRK8766-67-97 09:39:400.0[facility] 2017-01-04 09:39:408.2[facility]annALPHA FETOPROTEIN (AFP), TUMOR MARKER 2016-10-31 15:15:00 Test Item Value Reference Range Interpretation Comments ALPHA-FETOPROTEIN (BEAKER) (test 8.8 ng/mL <10.0 code = 1094) Effective 03/09/2014: Reference Range ChangeNew: <10.0 Previous: 0.0-8.0 COMPREHENSIVE METABOLIC [id number] 14:52:00 Test Item Value Reference Range Interpretation [...] NOT APPLICABLE FOR DIALYSIS PATIEN TS. PROTHROMBIN TIME/[id number] 14:40:00 Test Item Value Reference Range Interpretation [...] K/ L 0.00-0.20 (test code = 417) 0.64SAVA-ROQQKVGSLJ9659-45-12 14:11:00 Test Item Value Reference Range Interpretation Comments POC-CREATININE 0.6 mg/dL 0.6-1.3 TESTED AT [facility] 6720 (BEAKER) ([place] code = 2229) [address] POC-EGFR (BEAKER) 98 mL/min/1.73M2 (test code = [...] 762) ATYPICAL LYMPHS(BEAKER) (test code Present = 1938) COMPREHENSIVE METABOLIC [id number] 07:38:00 Test Item Value Reference Range Interpretation [...] TS. CBC WITH PLATELET COUNT + MANUAL [id number] 07:03:00 Test Item Value Reference Range Interpretation [...] WBC 0-0 (BEAKER) (test code = 413) 0.00PT/[id number] 07:02:00 Test Item Value Reference Range Interpretation [...] 2.5-3.5 for patients with mechanical heart valves.URINE EKKGLFZ8823-36-70 09:57:00 Test Item Value Reference Range Interpretation Comments CULTURE (BEAKER) (test code = See comment 1095) <10,000 col/mL enteric organisms of >2 types. No further workup performed. Multiple organisms suggestive of colonization or contamination. Repeat collection recommended.>100,000 col/mL skin floraCYTOMEGALOVIRUS ANTIBODY, [id number] 15:23:00 Test Item Value Reference Range Interpretation Comments CYTOMEGALOVIRUS IGG ANTIBODY Positive (BEAKER) (test code = 790) CYTOMEGALOVIRUS ANTIBODY, [id number] 15:23:00 Test Item Value Reference Range Interpretation Comments CYTOMEGALOVIRUS IGM ANTIBODY Negative (BEAKER) (test code = 816) URINALYSIS W/ REFLEX URINE [id number] 17:13:00 Test Item Value Reference Range Interpretation [...] code = 2795) ALPHA FETOPROTEIN (AFP), TUMOR [id number] 14:34:00 Test Item Value Reference Range Interpretation Comments ALPHA-FETOPROTEIN (BEAKER) (test 7.2 ng/mL <10.0 code = 1094) Effective 03/09/2014: Reference Range ChangeNew: <10.0 Previous: 0.0-8.0CBC W/PLT COUNT & AUTO UYEPOAFJMMHX2584-34-47 13:34:00 Test Item Value Reference Range Interpretation [...] 0.00-0.20 (test code = 417) 0.00HEPATIC FUNCTION [id number] 13:21:00 Test Item Value Reference Range Interpretation [...] = 39 U/L 6-55 347) BASIC METABOLIC [id number] 13:21:00 Test Item Value Reference Range Interpretation [...] NOT APPLICABLE FOR DIALYSIS PATIEN TS. PROTHROMBIN TIME/[id number] 13:17:00 Test Item Value Reference Range Interpretation [...] Range ChangeNew: <10.0 Previous: 0.0-8.0 COMPREHENSIVE METABOLIC [id number] 08:04:00 Test Item Value Reference Range Interpretation [...] PATIEN TS. CBC W/PLT COUNT & AUTO SDXXHBJFKQMG3505-06-63 08:02:00 Test Item Value Reference Range Interpretation [...] L 0.00-0.20 (test code = 417) 0.00PROTHROMBIN TIME/[id number] 07:57:00 Test Item Value Reference Range Interpretation [...] Range ChangeNew: <10.0 Previous: 0.0-8.0 HEPATIC FUNCTION [id number] 17:38:00 Test Item Value Reference Range Interpretation [...] = 29 U/L 6-55 347) BASIC METABOLIC [id number] 17:38:00 Test Item Value Reference Range Interpretation [...] APPLICABLE FOR DIALYSIS PATIEN TS. COMPREHENSIVE METABOLIC [id number] 17:38:00 Test Item Value Reference Range Interpretation [...] PATIEN TS. CBC W/PLT COUNT & AUTO CZWTPJVRBOAZ2547-75-70 17:14:00 Test Item Value Reference Range Interpretation [...] L 0.00-0.20 (test code = 417) 0.00PROTHROMBIN TIME/[id number] 17:14:00 Test Item Value Reference Range Interpretation Comments PROTIME (BEAKER) (test code = 15.4 seconds 11.7-14.7 H 759) INR (BEAKER) (test code = 370) 1.2 <=5.9 RECOMMENDED COUMADIN/WARFARIN INR THERAPY RANGESSTANDARD DOSE: 2.0 - 3.0 Includes: PROPHYLAXIS forvenous thrombosis, systemic embolization; TREATMENT for venous thrombosis and/or pulmonary embolus.HIGH RISK: Target INR is 2.5-3.5 for patients with mechanical heart valves.POCT-GLUCOSE [id number] 07:44:00 Test Item Value Reference Range Interpretation Comments POC-GLUCOSE METER 373 mg/dL 70-[address] [facility] 67[address] ([facility]) (test code = [place] 1537) [address] GUNJAN TITER AND [id number] 13:43:00 Test Item Value Reference Range Interpretation Comments GUNJAN TITER (AKER) (test code = :640 1541) GUNJAN PATTERN ([facility]) (test code = Speckled 1781) ANTI-NUCLEAR ANTIBODY (GUNJAN)2016-06-06 13:37:00 Test Item Value Reference Range Interpretation Comments ANTI-NUCLEAR ANTIBODY (GUNJAN) (BEAKER) Positive Negative A (test code = 418) BEDSIDE GLUCOSE TEEPNPE4034-48-77 10:39:66040Fubyshit NwzuerlHESTNEIIM9143-93-71 08:37:0012.3[facility] VegupjrSZVXRUFOU7757-18-72 08:37:0093[facility] HMATGVRIY5865-70-30 08:37:000.6[facility] MxeczooNJHMQIHLJ6737-79-37 08:37:002 [facility] YljnmeeIJXPTPXYU2132-19-58 08:37:00384Iumcqkaa HermannCHEMISTRY 2013-02-10 08:37:008.1[facility] WprrfquEIRWFJZRW6848-36-27 08:37:0029[facility] EtduxfbEGAYOXUCJ6173-77-23 08:37:78307Lrbyvlhk KzsrispAQQUCFQCB1074-80-52 08:37:65026Kgzhveuq VospqilGSQVFUFVK9207-52-11 08:37:003.3[facility] NWONUXNLWP6024-05-96 08:37:007.3[facility] UxunjoeMLIKPIRRYV9069-52-61 08:37:00 3.91[facility] FtirfxuVOCYJQYKBZ8342-01-01 08:37:0010.4[facility] HermannHEMATOLOGY 2013-02-10 08:37:0032.9[facility] MlieinqJLURSCNJXA8645-61-14 08:37:008.5[facility] XamcajhNDHPBLQJAI7248-96-43 08:37:0031.6[facility] EooxpyvOAFXXOFHCI5174-78-67 08:37:0019.2[facility] UplykzoNIFTEFNXDP7452-21-45 08:37:0084.1[facility] RXGIMUREZM0754-12-15 08:37:00 Test Item Value Reference Range Interpretation Comments MCH (test code = MCH) 26.6 pg 27.0-31.0 L [facility] FskcmkoMQYXPZXXLU9860-77-77 08:37:41638Ryklnuhx HermannHEMATOLOGY 2013-02-10 08:37:000.0[facility] EgjjbofRUILDIQMCZ7596-90-81 08:37:000.2[facility] GtqasmaXMFLSLMXHA3481-66-98 08:37:000.3[facility] IuqmwmfDUGNVOWQSV3613-79-57 08:37:003.1[facility] YegkdhvGHNPPUWPTZ6725-06-48 08:37:0010.0[facility] ERAGVTTECM1255-23-59 08:37:0041.5[facility] GomyvrbWYHWDDQZVA4152-95-08 08:37:00 3.3[facility] TohmnyuEZMTHPAKEK0357-40-52 08:37:000.7[facility] HermannHEMATOLOGY 2013-02-10 08:37:003.0[facility] UauswtvQKRGSORDFI2607-37-10 08:37:0045.1[facility] HermannBEDSIDE GLUCOSE NDXMCRZ9670-65-09 01:53:61592Mtqvdwjs HermannBEDSIDE GLUCOSE HWKRZUD1669-18-52 21:34:47204Hcdioycg BnahzepZRWSBECPNR7668-56-63 15:01:0011.0[facility] HeerhxjOSPKWWXIOG5707-51-13 15:01:0034.6[facility] SIVPAIDGIG0531-03-05 10:23:0010.2[facility] QbvuszmCRQYJACCNG3591-87-24 10:23:00 32.1[facility] UdbdrhoJUXSBGCYRS3230-92-83 14:47:01970Spocnfpu HermannHEMATOLOGY 2013-02-08 14:47:0018.8[facility] VevxuujISFKPEOBXX7745-96-48 14:47:008.8[facility] FufgkaxPVOYEWXKFC9694-77-91 14:47:0083.0[facility] IcdplnfPQAWSOOWCQ2507-99-11 14:47:00 Test Item Value Reference Range Interpretation Comments MCH (test code = MCH) 26.4 pg 27.0-31.0 L [facility] KpyilmxQSQKIJNJQS7701-76-81 14:47:0031.8[facility] HermannHEMATOLOGY 2013-02-08 14:47:003.97[facility] GnwogxbFQRJOJNLCN3108-10-96 14:47:006.2[facility] BqwaavnHKECUXSAIO7821-03-05 16:43:96420Cgpjmznt NcitpcmTXTNZGVOVK0106-52-81 16:43:008.7[facility] SqmztjzIXFEJHGEDY1068-35-55 16:43:004.20[facility] QZJDZIUPCP1971-47-68 16:43:006.5[facility] QpddgxvIHGHVINWLJ9182-56-63 16:43:00 84.7[facility] PihoxryVNMZTAKSHH3750-91-26 16:43:00 Test Item Value Reference Range Interpretation Comments MCH (test code = MCH) 26.7 pg 27.0-31.0 L [facility] EupczxtHLPKNTVGBW1863-83-46 16:43:0019.1[facility] HermannHEMATOLOGY 2013-02-07 16:43:0031.5[facility]annBL[facility]OD BANK KXRGCXU0461-22-37 13:40:00 Product available 4(02/05/2013 08:40:00)[facility]annBL[facility]OD BANK RESULTS 2013-02-05 00:40:00Negative (02/04/2013 19:40:00)[facility] HermannCHEMISTRY 2013-02-05 00:40:002.7[facility] ZxkdnryXKZOQPQNZ9386-03-73 00:40:001.5[facility] AnfzmzjGSUDNOVXS3748-26-54 00:40:0093[facility] WrqbplmHKDAXPFMG0584-71-35 00:40:000.6[facility] TfmuofaOXLRIVJIH9126-58-26 00:40:0049[facility] DZRTMFNOS8844-32-27 00:40:91607Wjlicahz SsijyevLQBWKRFAJ5817-44-52 00:40:003.1 [facility] WqdtjpgMUJQQRHCQ2972-60-14 00:40:0030[facility] HermannCHEMISTRY 2013-02-05 00:40:008.0[facility] ZmhuoymIYPRFWIKD0890-47-96 00:40:007.2[facility] VagllmtRUISLQDDY4116-35-10 00:40:0027[facility] SoqxetcRPHOCHSGE8329-92-89 00:40:14355Evjrljwz GmcgujzFWFANMRXH8551-00-30 00:40:005[facility] KOMDDJGOF3442-05-98 00:40:000.6[facility] NketagqIOUWHDLCB9858-17-25 00:40:003.6 [facility] GosldizVTXXIOJQA6969-56-38 00:40:92627Mnfwbfiu HermannCHEMISTRY 2013-02-05 00:40:15692Gmknusjh XwquwdrMOMUNUZGC4556-16-35 00:40:0013.6[facility] NukpmteTTUALJWML6435-29-84 00:40:008[facility] XnspewhCKVHRVUUY4982-47-57 00:40:00 0.8[facility] VknkkevVGBWNOFDS9181-12-95 00:40:004.1[facility] HermannHEMATOLOGY 2013-02-05 00:40:0038.5[facility] KiujdmuWXNIXJEXIL0359-51-38 00:40:000.6[facility] YjhueboZWTRKJGVBP9182-70-39 00:40:0013.5[facility] TyepqwkAFABRKBTTQ4954-95-33 00:40:002.7[facility] RwytflqZYHPVPCLRL0009-07-79 00:40:0044.7[facility] MWFIMULHBS9249-60-50 00:40:000.2[facility] WweorapPDJNFDWAHF9353-58-84 00:40:003.1 [facility] OrpucpcIDQEQOIRTB4916-25-96 00:40:002.7[facility] HermannHEMATOLOGY 2013-02-05 00:40:000.0[facility] LcmxoocFFAGCQWRNK8219-32-97 00:40:000.9[facility] QwzyhurJWKSKBQDZQ5992-15-44 00:40:00 Test Item Value Reference Range Interpretation Comments aPTT (test code = aPTT) 32.2 s 22.9-35.8 N [facility] QyvocjrPDCLELTTFL4794-18-32 00:40:00 Test Item Value Reference Range Interpretation Comments PROTIME (test code = PROTIME) 15.0 s 12.0-14.7 H [facility] JqzydivRCHIWVGMBR7408-60-53 00:40:001.19[facility] HermannURINALYSIS 2013-02-05 00:30:00Negative *NA*(02/04/2013 19:30:00)[facility] HermannURINALYSIS 2013-02-05 00:30:00Moderate *ABN*(02/04/2013 19:30:00)[facility] HermannURINALYSIS 2013-02-05 00:30:00Negative (02/04/2013 19:30:00)[facility] HermannURINALYSIS 2013-02-05 00:30:00Negative (02/04/2013 19:30:00)[facility] HermannURINALYSIS 2013-02-05 00:30:00Slight *ABN*(02/04/2013 19:30:00)[facility] HermannURINALYSIS 2013-02-05 00:30:006.0[facility] CfnikwdDQKZJPDMKM5363-56-57 00:30:001.003[facility] QgmkefwJADLMCADNG8740-95-43 00:30:001[facility] NtofvdmARCTPGXETQ2862-45-63 00:30:002[facility] HermannBEDSIDE GLUCOSE UTSQSVW8459-29-42 21:18:44270Ccunpqyr HermannBEDSIDE GLUCOSE ORULCUC0061-49-85 17:01:76205Yigqocpa HermannHEMATOLOGY 2013-01-27 14:14:0020.0[facility] VycurfdQCUQEAQPUY1325-69-47 14:14:008.5[facility] BtzytlmHJEZWTKTBR4354-63-18 14:14:99670Crfkjtdo WtpdaseWQBSONKZBL6362-39-42 14:14:005.7[facility] QbbqgzyTFFBSBPHPD8219-78-93 14:14:0030.5[facility] ITMQGHAPXZ9882-24-25 14:14:009.6[facility] DvhrkphVGIUQGFYHG2436-66-91 14:14:00 3.60[facility] RunbfoeEYVSOXQDVY5444-83-13 14:14:00 Test Item Value Reference Range Interpretation Comments MCH (test code = MCH) 26.6 pg 27.0-31.0 L [facility] VxobdzsVTBEAMCOTN6154-05-59 14:14:0084.5[facility] HermannHEMATOLOGY 2013-01-27 14:14:0031.5[facility] BpyfiejDIIOLRGZLJ4250-18-72 14:14:0053.6[facility] HiolwomRKDBESEQSL1517-84-96 14:14:0032.8[facility] WzcbaruCGJOXCJNJO7280-72-33 14:14:0011.3[facility] OaffibwJWIKLIIJFN5817-21-94 14:14:001.9[facility] OITESMFTPC8377-52-93 14:14:000.4[facility] NdldzisYSVFQXKMUJ7754-14-46 14:14:003.0 [facility] WtgfdyyXNIRCZUNRM6491-82-47 14:14:001.9[facility] HermannHEMATOLOGY 2013-01-27 14:14:000.6[facility] WtodjmdOIMNNIFHDG8769-83-40 14:14:000.1[facility] OdwdodyKKUWCKILHL4497-26-33 14:14:000.0[facility] HermannBEDSIDE GLUCOSE TESTING 2013-01-27 12:55:76673Kewmkwhw BgkaxwxTMEHMHYDKM2212-10-49 10:40:000.7[facility] ZiiwbpvKCJVHDGPQS8629-26-77 10:40:001.8[facility] KwzcwgdCCMYFANVVN5118-07-86 10:40:002.3[facility] EztynomHREMHBIKGP9825-61-58 10:40:000.2[facility] LSNKJBAJBU4586-34-57 10:40:002.2[facility] UydwxmlCTIMBGCMGZ2162-05-55 10:40:00 46.1[facility] BxnlgzmSUCLOCQNLS8498-40-52 10:40:0037.9[facility] HermannHEMATOLOGY 2013-01-26 10:40:0013.5[facility] FihivfsTVURTMUJLD5602-23-83 10:40:000.0[facility] PjubfzmPHKSKMDECW0642-73-57 10:40:000.1[facility] HwjbanlNEKHPLUXIG7671-90-93 10:40:00 Test Item Value Reference Range Interpretation Comments PROTIME (test code = PROTIME) 16.5 s 12.0-14.7 H [facility] BrysyjiHDOMBSKCLW9534-14-47 10:40:001.35[facility] HermannHEMATOLOGY 2013-01-26 10:40:0028.5[facility] YvxhwycRHMKQPGIFO1098-90-26 10:40:0085.8[facility] LmhudedVPUBKGIWOY6111-01-27 10:40:00 Test Item Value Reference Range Interpretation Comments MCH (test code = MCH) 27.2 pg 27.0-31.0 N [facility] CvbvwlwXGWPKVPJCM9451-64-77 10:40:0031.7[facility] HermannHEMATOLOGY 2013-01-26 10:40:009.0[facility] NhwijkfENQTUAYDTT4715-58-78 10:40:70211Hykkbrkv XhaagtyCNBDYCGGGN9275-93-63 10:40:008.9[facility] NleyfxvXFQAEHOGIR0255-40-37 10:40:0020.0[facility] IjkqceyZHJRIKFINV3198-79-02 10:40:004.9[facility] BRBXTKPIJQ6317-44-07 10:40:003.32[facility] HermannTUMOR DLTRRPH8973-17-14 10:40:003.0[facility] AmbhztkYRCGSSYZDL6059-26-22 04:15:005.9[facility] AQSKFHVPHC6829-08-40 04:15:0085.3[facility] OrpsqikDQOGRTEKGH7976-27-71 04:15:00 153[facility] KkicspkAIDVAKMRXV1489-45-93 04:15:0019.6[facility]annHEMATOLOGY 2013-01-26 04:15:009.5[facility] TboahajPQMEBHMKPZ5143-18-74 04:15:003.55[facility] QovvrrhYTNBWGGVGM3139-32-38 04:15:0030.3[facility] LugevxkFKKRYHCQGH2886-52-04 04:15:008.9[facility] DxlknydZBNVFORHVH0221-09-08 04:15:0031.4[facility] ATXSIMDYDS9230-46-31 04:15:00 Test Item Value Reference Range Interpretation Comments MCH (test code = MCH) 26.8 pg 27.0-31.0 L [facility] AhuqaiqIUIOSPQHWK2513-26-18 04:15:000.0[facility] HermannHEMATOLOGY 2013-01-26 04:15:000.7[facility] WsunrbdLQJONSAYPT6517-61-21 04:15:000.1[facility] ShsiktqCWQOCRHDFU5559-46-23 04:15:0011.7[facility] JbkcgjrJTEHIUEGVI7453-13-35 04:15:002.4[facility] FgrrsyaKUOLKLVCWT6943-40-78 04:15:000.6[facility] ROTQKZJAXL7486-63-16 04:15:002.6[facility] PpndwqtMZDSTKCTUJ4253-86-60 04:15:002.4 [facility] ZncnwufBIYSVQAKOY6528-67-81 04:15:0041.2[facility] HermannHEMATOLOGY 2013-01-26 04:15:0044.1[facility] DyncccrEUYMWSQXHU9217-12-87 14:31:00Negative *NA*(01/25/2013 09:31:00)[facility] BedhvzmRYWARSOQLT4540-80-64 14:31:00Negative *NA*(01/25/2013 09:31:00)[facility] YwskdnmSUBAXECTEF9504-28-83 14:31:00Negative *NA*(01/25/2013 09:31:00)[facility] IrmzrebRRXWXCJWID4513-85-44 14:31:00Positive *NA*(01/25/2013 09:31:00)[facility] IzkrrokGEEXLYHNRN4389-42-67 14:31:0079.7 [facility]annBLOOD BANK ICABSIT7875-21-32 13:32:00Product available 4(01/25/2013 08:32:00)[facility] AedypncVBRGPFBMQ9141-35-51 08:45:001.7[facility] CukjprhDEIAIXLTC5546-93-59 08:45:001.9[facility] JvrokxvJOSYLMQJM5964-31-97 08:45:000.04[facility] QhcfbpaBEUTKNZVC9373-67-23 08:45:63953Rtpwpzwg [place] XNPSPLXUX0577-82-15 08:45:000.6[facility] CuznrcvTHWUPMBJM6844-20-53 08:45:000.5 [facility] NnpwipqRUPMYSTBF4793-99-40 04:09:000.04[facility] HermannCHEMISTRY 2013-01-25 04:09:83346Xbjlhhfd GedxsdwPNGLTHKUM4423-71-34 04:09:000.7[facility] ToswzgpGKFZRQEWK7424-92-83 04:09:000.7[facility] FxvajseYJHDRSAQG0855-75-67 13:07:25503Vettnvll UnnwcnpANZYNCMAK0272-86-70 13:07:003.6[facility] CAEAPGVAQ1201-20-40 13:07:97634Yrgltgax WjotgzfPBFPEXDNB4459-59-06 13:07:0093 [facility] DikeigkCNGYCWTIF4742-74-99 13:07:007[facility] IrhfileXHDIIIBWY1046-83-97 13:07:000.6[facility] AjajqmsDEBVNYJHL1415-99-62 13:07:0027[facility] VPHDFWBCM2295-85-82 13:07:007.6[facility] WvibdtkRDZWYMYQW5241-12-40 13:07:20712 [facility] LjjydcmOONNHOHEI3844-30-10 13:07:0012.6[facility] HermannCHEMISTRY 2013-01-24 13:07:002.6[facility] YcrkeoyDAHJPQWSO8529-83-83 13:07:001.6[facility]BL[facility] RGHHWSY4497-12-37 04:33:26Product available 5(01/23/2013 23:33:26)[facility] QhrapzjABXPORBUO1557-07-95 03:15:0017[facility] HermannCHEMISTRY 2013-01-24 03:15:0013.8[facility] MkmduihXMYFZIYIF1636-36-97 03:15:003.2[facility] RcqfddpPDCIMMZKZ6963-21-79 03:15:000.9[facility] TdxhwmcCXIFVZVJG3212-09-77 03:15:003.8[facility] IbcaxvrGTKWKBCXW0280-85-19 03:15:67653Xlxfmtuf [place] POMASYWLM2071-22-99 03:15:80058Trjipbto IlbneofSYWCVTYMD3452-49-95 03:15:0088 [facility] KzprhnoTPADRNXNM9773-12-05 03:15:0046[facility] HermannCHEMISTRY 2013-01-24 03:15:18995Ovymhsdd IvcmucpBBQWSYMWP8802-06-92 03:15:000.6[facility] WsmlqbxUQNXDCKIJ4110-25-83 03:15:002.9[facility] RudjezxLKRWQABYO3515-15-48 03:15:0032[facility] OpzrvmoWWEZHMKKH0259-53-92 03:15:007.8[facility] HYRCIUIPR5752-31-18 03:15:006.1[facility] LvfyvshEZOEGNPOX9657-60-26 03:15:0026 [facility] YmqjdkyVDFPQROVG0538-47-35 03:15:000.7[facility] HermannCHEMISTRY 2013-01-24 03:15:33827Cwufvfwn VbyjugbAOTOIMNXL7792-74-58 03:15:0012[facility] UadxmzvGIMDDFQVTS8867-15-89 03:15:00 Test Item Value Reference Range Interpretation Comments PROTIME (test code = PROTIME) 16.7 s 12.0-14.7 H [facility] WmaymgcFHFBEPAFXN8616-42-50 03:15:001.37[facility] HermannHEMATOLOGY 2013-01-24 03:15:00 Test Item Value Reference Range Interpretation Comments aPTT (test code = aPTT) 29.7 s 22.9-35.8 N [facility] BANK BSUBFGZ7369-94-11 03:13:00Negative (01/23/2013 22:13:00)[facility] PWWSA1839-08-41 02:10:00Positive *ABN*(01/23/2013 21:10:00)[facility]
[2020-03-08 12:57] VITALS: O2SAT 85; BMI 30.3
[2020-03-08] MEDS ORDERED: MORPHINE 2 MG/ML SYR IV PRN (13:01)
[2020-03-08] MEDS ORDERED: LORazepam 2 MG/ML VIAL IV SCH (14:00)
--- NOTE | 2020-03-09 06:44 | P.SSS ---
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 DR. IGNACIO CONSULTED FOR INPATIENT HOSPICE. I TALKED TO FAMILY AT BEDSIDE AT LUNCH TIME. BY THIS TIME HER BP WAS DOWN TO 35 SYSTOLIC. IT WAS DOWN TO 45 SYSTOLIC IN THE AM BEFORE THAT. SHE DID NOT HAVE MORE THAN A FEW MINUTES TO LIVE. SHE WAS ALREADY IN AGONAL BREATHING WHEN I SAW HER. FAMILY WAS VERY CONTENT WITH HER CARE. Allergies tape Allergy (Mild, Uncoded 03/06/20 00:14) Itching Home Medications: Ezetimibe [Zetia*] 10 mg PO DAILY 05/18/13 Furosemide [Lasix*] 20 mg PO DAILY 05/18/13 Levothyroxine [Synthroid*] 50 mcg PO WTZHR3EV 05/18/13 Multi-VIT,(RENAL) [Centrum Silver*] 1 tab PO DAILY 05/18/13 [place]-3 Acid Ethyl Esters [Lovaza] 1 gm PO BID 05/18/13 Pregabalin [Lyrica*] 100 mg PO BEDTIME 05/18/13 Propranolol [Inderal*] 40 mg PO BID 05/18/13 Spironolactone [Aldactone*] 50 mg PO DAILY 05/18/13 Vitamin E [Vitamin E*] 400 units PO DAILY 05/18/13 Insulin 70/30 NPH/Reg Human [Novolin 70/30*] 68 units SQ BIDWM 11/13/15 Bifidobacterium Infantis [Align] 1 tab PO DAILY 03/06/20 Famotidine 1 tab PO BEDTIME 03/06/20 Ferrous Sulfate [Ferrous Sulfate*] 1 tab PO DAILY 03/06/20 Linagliptin [Tradjenta] 1 tab PO DAILY 03/06/20 Tramadol HCl [Ultram] 1 tab PO Q8HP PRN 03/06/20 methocarbamoL [Robaxin*] 1 tab PO Q8HP PRN 03/06/20 - Past Medical/Surgical History Diabetic: Yes -: 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 -: gerd -: htn -: diabetic -: esophageal varices -: liver cancer-4 years ago -: TIPS -: colonoscopy -: appendectomy -: cholecystectomy -: hysterectomy -: left hip replacement 2016 - Family History Father -: Heart disease Mother -: Lung disease Notes: copd - Social History Smoking Status: Never smoker Alcohol use: No CD- Drugs: No Caffeine use: Yes Place of Residence: Home Review of Systems is unable to be obtained Physical Examination - Physical Exam General: Unresponsive, Comatose, Other (AGONAL.) Cardiovascular: Edema Gastrointestinal: Distended (MASSIVE ASICTES, CACHETIC.) - Diagnosis (Problem(s)) (1) Hepatic cancer Status: Chronic Plan: TERMINAL FROM LIVER CANCER AND COMFORTABLY EXPECTED. MEDICATIONS FOR HOSPICE WERE GIVEN. Qualifiers: Liver malignancy type: hepatocellular carcinoma Qualified Code(s): C22.0 - Liver cell carcinoma - Disposition Disposition: Condition:
== END 2020-03-08 14:30 | disposition expired | DRG 951 ==
LOC: ERHOLD 12:20
PROVIDERS: ADMIT Internal Medicine; ATTEND Internal Medicine
DX: Z51.5 Encounter for palliative care (principal); C22.0 Liver cell carcinoma; I10 Essential (primary) hypertension; E11.9 Type 2 diabetes mellitus without complications; K74.60 Unspecified cirrhosis of liver; K21.9 Gastro-esophageal reflux disease without esophagitis; K76.0 Fatty (change of) liver, not elsewhere classified; Z79.890 Hormone replacement therapy; Z79.4 Long term (current) use of insulin; Z90.49 Acquired absence of other specified parts of digestive tract; Z90.710 Acquired absence of both cervix and uterus; Z91.048 Other nonmedicinal substance allergy status; Z79.899 Other long term (current) drug therapy; Z96.642 Presence of left artificial hip joint